=== PATIENT | female | born 1995 | race Caucasian/White ===

== ENCOUNTER 2023-04-09 13:01 | Outpatient (OUT) | payer OTHER, SELFPAY ==
--- NOTE | 2023-04-09 | US_ITS ---
The [address] [address] Patient Name: JODI BURNHAM MRN: [id number] date: 1995 Sex: F Assigned Patient Location: US Current Patient Location: LAB Accession/Order Number: [id number] Exam Date: 04/09/2023 13:06 Report Date: 04/09/2023 15:52 At the request of: JANKI SOTREY Procedure: US OB transvaginal EXAMINATION: US OB transvaginal HISTORY: MISSED MENSES COMPARISON: No relevant comparison available. FINDINGS: GESTATIONAL SAC: Present and normal appearing. YOLK SAC: Present and normal appearing. POLE: Present and normal appearing. CARDIAC: Present. UTERUS: Normal size and appearance. OVARIES: Right: Normal. Left: Normal. CERVIX: 4.3 cm in length and closed. CUL-DE-SAC: Normal. OTHER: None. AGE BY LMP: 9 weeks 2 days URIAH BY LMP: 11/10/2023 AGE BY US CRL: 9 weeks 4 days URIAH BY US CRL: 11/08/2023 US/US OB transvaginal IMPRESSION: 1. Single live intrauterine . Electronically authenticated by: MIREYA LOW Date: 04/09/2023 15:52
== END 2023-04-09 13:02 | disposition home or self-care (01) ==
LOC: US 13:02
PROVIDERS: Visit Provider Obstetrics & Gynecology
DX: Z34.91 Encounter for supervision of normal pregnancy, unspecified, first trimester (principal); N92.6 Irregular menstruation, unspecified
CPT/HCPCS: 76817

== ENCOUNTER 2023-04-14 15:09 | Outpatient (OUT) | payer OTHER, SELFPAY ==
[2023-04-14 16:31] LABS: Basophils Percent Auto 0.3 % (0.2-2.0); Eosinophils Absolute Auto 0.1 10^3/uL (0.0-0.7); Eosinophils Percent Auto 0.7 % (0.9-7.0); Hematocrit 38.1 % (36.0-48.0); Hemoglobin 12.6 g/dL (12.0-16.0); Immature Granulocytes Abs Auto 0.02 10^3/uL (0.00-0.03); Immature Granulocytes Pct Auto 0.2 % (0.0-0.5); Lymphocytes Absolute Auto 2.6 10^3/uL (1.2-3.8); Lymphocytes Percent Auto 26.4 % (20.5-60.0); Mean Corpuscular HGB Conc 33.1 g/dL (29.9-35.2); Mean Corpuscular Hemoglobin 30.1 pg (26.7-34.0); Mean Corpuscular Volume 90.9 fL (81.0-99.0); Mean Platelet Volume 11.5 fL (9.5-13.5); Monocytes Absolute Auto 0.6 10^3/uL (0.3-0.8); Monocytes Percent Auto 5.9 % (1.7-12.0); Neutrophils Absolute Auto 6.5 10^3/uL (1.4-6.5); Neutrophils Percent Auto 66.5 % (43.0-75.0); Red Blood Count 4.19 10^6/uL (4.20-5.40); Red Cell Distribution Width 12.9 % (11.0-15.0); White Blood Count 9.8 10^3/uL (4.0-11.0)
[2023-04-14 16:39] LABS: Platelet Count 203 10^3/uL (150-450)
[2023-04-14 17:06] LABS: Estimated Average Glucose 103 mg/dL; Glycohemoglobin A1C 5.2 % (4.5-6.2)
[2023-04-16 06:08] LABS: HBsAg Screen Negative (Negative); HCV Ab Non Reactive (Non Reactive); HIV Ab/p24 Ag Screen Non Reactive (Non Reactive); Rubella Antibodies, IgG 6.83 index (Immune >0.99)
[2023-04-16 12:10] LABS: Rapid Plasma Reagin, Quant Non Reactive titer (NonRea<1:1)
== END 2023-04-14 15:10 | disposition home or self-care (01) ==
LOC: LAB 15:09
PROVIDERS: Visit Provider Obstetrics & Gynecology
DX: Z34.80 Encounter for supervision of other normal pregnancy, unspecified trimester (principal); N92.6 Irregular menstruation, unspecified
CPT/HCPCS: 36415; 83036; 84443; 85025; 86592; 86762; 86803; 86850; 86900; 86901; 87086; 87340; 87389

== ENCOUNTER 2023-06-03 10:59 | Outpatient (OUT) | payer OTHER, SELFPAY ==
--- NOTE | 2023-06-03 11:02 | US_ITS ---
[address] [address] Patient Name: JODI BURNHAM MRN: [id number] date: 1995 Sex: F Assigned Patient Location: US Current Patient Location: Accession/Order Number: [id number] Exam Date: 06/03/2023 11:05 Report Date: 06/04/2023 01:28 At the request of: JANKI STOREY Procedure: US OB cervical length EXAMINATION: US OB cervical length HISTORY: History Of Maternal Cervical Laceration O09.299 COMPARISON: Ultrasound OB transvaginal 04/09/2023 TECHNIQUE: Transabdominal and transvaginal sonographic examination for cervical length. FINDINGS: CERVIX LENGTH: 4.9 cm; closed POSITION: Cephalic HEART RATE: 149 bpm OTHER: Dilated pelvic vessels. Age by EDC: 17 weeks 1 day URIAH by EDC: 11/10/2023 US/US OB cervical length IMPRESSION: 1. Single live intrauterine . 2. Closed cervix 4.9 cm in length. Electronically authenticated by: MIREYA LOW Date: 06/04/2023 01:28
== END 2023-06-03 11:00 | disposition home or self-care (01) ==
PROVIDERS: Visit Provider Obstetrics & Gynecology
DX: O09.292 Supervision of pregnancy with other poor reproductive or obstetric history, second trimester (principal); Z3A.17 17 weeks gestation of pregnancy
CPT/HCPCS: 76817

== ENCOUNTER 2023-06-08 21:36 | Outpatient (REF) | payer OTHER, SELFPAY ==
[2023-06-15 10:07] LABS: Age Gdln ACOG Testing Note (.); IGP, rfx Aptima HPV ASCU Note (.)
== END 2023-06-08 21:37 | disposition home or self-care (01) ==
LOC: LAB 21:36
PROVIDERS: Visit Provider Physician Assistant
DX: Z01.419 Encounter for gynecological examination (general) (routine) without abnormal findings (principal)
CPT/HCPCS: G0145

== ENCOUNTER 2023-06-23 16:21 | Outpatient (OUT) | payer OTHER, SELFPAY ==
--- NOTE | 2023-06-23 16:35 | US_ITS ---
[address] [address] Patient Name: JODI BURNHAM MRN: [id number] date: 1995 Sex: F Assigned Patient Location: US Current Patient Location: Accession/Order Number: [id number] Exam Date: 06/23/2023 17:00 Report Date: 06/23/2023 22:37 At the request of: JANKI STOREY Procedure: US OB anatomy EXAMINATION: US OB transvaginal, US OB anatomy HISTORY: SECOND TRIMESTER Z34.92 COMPARISON: No relevant comparison available. TECHNIQUE: Transabdominal sonographic examination was performed for obstetrical and evaluation. FINDINGS: Number: 1 Heart Rate: 153.4 bpm H.B. /min Amniotic Fluid Volume: Subjectively normal Placental Location: Posterior-fundal; lower margin is 6.4 cm from os. Cervix Length: 4.5 cm; closed ANATOMY: Normal Structures -cerebellum, choroid plexus, cisterna magna, lateral cerebral ventricles, orbits, midline falx, hard palate, four-chamber heart, RVOT, LVOT, stomach, kidneys, bladder, umbilical cord insertion into abdomen, three-vessel cord, cervical spine, thoracic spine, lumbar spine, sacral spine, right upper extremity, left upper extremity, right lower extremity, left lower extremity. SUBOPTIMALLY SEEN: None ABNORMALITIES: None BIOMETRY: BPD: 4.9 cm 20 weeks 5 days HC: 18.3 cm 20 weeks 5 days AC: 15.7 cm 20 weeks 6 days FL: 3.2 cm 20 weeks 1 days EFW:360.2 grams; 76% FL/AC: 20.7 FL/BPD: 66.5 HC/AC: 1.2 GESTATIONAL AGE: Age by EDC: 20 weeks 0 days URIAH by EDC: 11/10/2023 Age by current US: 20 weeks 4 days URIAH by current US: 11/06/2023 US/US OB anatomy IMPRESSION: 1. Single live intrauterine with growth detailed above. Electronically authenticated by: MIREYA LOW Date: 06/23/2023 22:37
--- NOTE | 2023-06-23 16:36 | US_ITS ---
[address] [address] Patient Name: JODI BURNHAM MRN: [id number] date: 1995 Sex: F Assigned Patient Location: US Current Patient Location: Accession/Order Number: [id number] Exam Date: 06/23/2023 17:00 Report Date: 06/23/2023 22:37 At the request of: JANKI SOTREY Procedure: US OB transvaginal EXAMINATION: US OB transvaginal, US OB anatomy HISTORY: SECOND TRIMESTER Z34.92 COMPARISON: No relevant comparison available. TECHNIQUE: Transabdominal sonographic examination was performed for obstetrical and evaluation. FINDINGS: Number: 1 Heart Rate: 153.4 bpm H.B. /min Amniotic Fluid Volume: Subjectively normal Placental Location: Posterior-fundal; lower margin is 6.4 cm from os. Cervix Length: 4.5 cm; closed ANATOMY: Normal Structures -cerebellum, choroid plexus, cisterna magna, lateral cerebral ventricles, orbits, midline falx, hard palate, four-chamber heart, RVOT, LVOT, stomach, kidneys, bladder, umbilical cord insertion into abdomen, three-vessel cord, cervical spine, thoracic spine, lumbar spine, sacral spine, right upper extremity, left upper extremity, right lower extremity, left lower extremity. SUBOPTIMALLY SEEN: None ABNORMALITIES: None BIOMETRY: BPD: 4.9 cm 20 weeks 5 days HC: 18.3 cm 20 weeks 5 days AC: 15.7 cm 20 weeks 6 days FL: 3.2 cm 20 weeks 1 days EFW:360.2 grams; 76% FL/AC: 20.7 FL/BPD: 66.5 HC/AC: 1.2 GESTATIONAL AGE: Age by EDC: 20 weeks 0 days URIAH by EDC: 11/10/2023 Age by current US: 20 weeks 4 days URIAH by current US: 11/06/2023 US/US OB transvaginal IMPRESSION: 1. Single live intrauterine with growth detailed above. Electronically authenticated by: MIREYA LOW Date: 06/23/2023 22:37
[2023-06-26 02:07] LABS: AFP Value 44.7 ng/mL (.); Gestat. Age Based On As provided (.); Insulin Dep Diabetes No (.); Maternal Age At EDD 27.6 yr (.); OSBR Risk 1 IN 10000 (.); Results Report (.)
== END 2023-06-23 16:22 | disposition home or self-care (01) ==
LOC: US 16:21
PROVIDERS: Visit Provider Obstetrics & Gynecology
DX: Z34.92 Encounter for supervision of normal pregnancy, unspecified, second trimester (principal); Z3A.20 20 weeks gestation of pregnancy
CPT/HCPCS: 36415; 76805; 76817; 82105

== ENCOUNTER 2023-07-25 09:10 | Outpatient (OUT) | payer OTHER, SELFPAY ==
--- OUTSIDE RECORDS SUMMARY | 2023-07-25 09:12 | XMS_ITS | CCD ---
Author Name Unknown Address [address] [facility] [address] [place] [address] Organization [facility] Care Team Providers Care Superintendent Job Name Role Phone Ramos Roxane Sims Unavailable [phone] ROXANE BEASLEY Unavailable Unavail able MARI HAM Unavailable Unavailable HENRI PULLIAM Unavailable Unavailabl emily BEASLEY, ROXANE SIMS Unavailable Unavail able HENRI PULLIAM Unavailable Unavailabl e RAMOS, ROXANE SIMS Unavailable Unavail able SOLIS FRENCH Unavailable Unavailable Physician, No PCP Unavailable Unavailable YANETH RADFORD Unavailable Unavailable Physician, No PCP Unavailable Unavailable Ernestine Mckeon Unavailable Unavailable DARY BLACK I Referring Unavailable DARY BLACK I Referring Unavailable Medications Current Medications Medication Drug Class(es) Dates Sig (Normalized) Sig (Original) Epinephrine 0.3 Mg/0.3 Ml Injection, Auto-Injector (3 sources) alpha-Adrenergic Agonist, beta-Adrenergic Agonist, Catecholamine EPINEPHrine (EPIP EN) 0.3 mg/0.3 mL AtIn Inject 0.3 mg into the shoulder, thigh, or buttocks once. Active EPINEPHrine (EPI PEN) 0.3 mg/0.3 mL AtIn Inject 0.3 mg into the shoulder, thigh, or buttocks once. Active etonogestrel 68 mg drug implant (3 sources) Progestin etonogestrel (NEXPLANON) 68 mg Impl subdermal implant by Subdermal route once. Active lactobacillus acidophilus (1 source) Lactobacillus acidophilus (PROBIOTIC ORAL) Indications: Fortify, 30 Billion Take by mouth. Active magic mouthwash susp equal parts viscous lidocaine 2%, diphenhydramine 12.5mg/5mL, maalox [id number]/5mL (1 source) Start: End: magic mouthwash susp equal parts viscous lidocaine 2%, diphenhydramine 12.5mg/5mL, maalox [id number]/5mL Swish and spit 5 mL every 6 (six) hours as needed. 180 mL 0 12/27/2017 12/30/2017 Active omeprazole 20 mg delayed release oral capsule (3 sources) Proton Pump Inhibitor Start: take 11 capsules by mouth once daily omeprazole (PRILOSEC) 20 MG capsule TK ONE C PO QD 11 12/01/2016 Active tiZANidine 4 mg oral capsule (2 sources) Central alpha-2 Adrenergic Agonist Start: End: take 1 capsule by mouth three times daily as needed for muscle spasms, then take 1 capsule by mouth as needed for muscle spasms tiZANidine (ZANAFLEX) 4 MG capsule Take 1 (one) capsule (4 mg total) by mouth 3 (three) times a day as needed for muscle spasms. 15 capsule 0 05/08/2017 05/13/2017 Active Start: 05-08-2017 End: 05-08-2017 take 1 tablet by mouth once tiZANidine (ZANAFLEX) tabl et 2 mg 2 mg, Oral, Once, 05/08/17 at 1135, For 1 dose Given 05/08/2017 12:47 EDT 2 mg Completed/Discontinued Medications Medication Drug Class(es) Dates Sig (Normalized) Sig (Original) Diphenhydramine 50 Mg/Ml Injection Solution (1 source) Histamine-1 Receptor Antagonist Start: 05-07-2017 End: 05-07-2017 take 25 mg intravenous route once, then take 25 mg intravenous route diphenhydrAMINE (BENADRYL) injection 25 mg 25 mg, Intravenous, Once, Radha 05/07/17 at 1720, For 1 dose, For IV administration, give at a rate less than or equal to 25 mg/min Given 05/07/2017 17:29 EDT 25 mg 1 ml ketorolac tromethamine 30 mg/ml injection (2 sources) Nonsteroidal Anti-inflammatory Drug, Cyclooxygenase Inhibitor Start: 05-08-2017 End: 05-08-2017 ketorolac (TORADOL) injection 30 mg 30 mg, Intravenous, Once, 05/08/17 at 1150, For 1 dose Given 05/08/2017 11:50 EDT 30 mg Start: 05-07-2017 End: 05-07-2017 ketorolac (TORADOL) injectio n 15 mg 15 mg, Intravenous, Once, Radha 05/07/17 at 1720, For 1 dose Given 05/07/2017 17:29 EDT 15 mg 2 ml metoclopramide 5 mg/ml injection (1 source) Dopamine-2 Receptor Antagonist Start: 05-07-2017 End: 05-07-2017 metoclopramide (REGLAN) injection 10 mg 10 mg, Intravenous, Once, Radha 05/07/17 at 1720, For 1 dose Given 05/07/2017 17:29 EDT 10 mg 1000 ml sodium chloride 9 mg/ml injection (1 source) Start: 05-07-2017 End: 05-07-2017 sodium chloride 0.9% (NS) bolus 1,000 mL 1,000 mL, Intravenous, at 1,000 mL/hr, Once, Radha 05/07/17 at 1720, For 1 dose New Bag 05/07/2017 17:28 EDT 1,000 mL 1000 mL/hr Problems Active Problems Problem Classification Problem Date Documented Date Episodic/Chronic Anxiety disorders (6 sources) Panic disorder; Translations: [Anxiety] Onset: 08-17-2015 08-17-2015 Chronic Attention-deficit, conduct, and disruptive behavior disorders (1 source) Adult attention deficit hyperactivity disorder ; Translations: [ADD (attention deficit disorder)] Onset: 08-17-2015 08-17-2015 Chronic Disorders usually diagnosed in infancy childhood or adolescence (2 sources) Other specified behavioral and emotional disorders with onset usually occurring in childhood and adolescence; Translations: [ADD (attention deficit disorder)] Onset: 08-17-2015 08-17-2015 Chronic Headache; including migraine (6 sources) Cluster headache; Translations: [Migraine] Onset: 08-17-2015 08-17-2015 Chronic Nonmalignant breast conditions (3 sources) Unspecified lump in the right breast, unspecified quadrant; Translations: [Mass of breast, right] Onset: 08-07-2016 08-07-2016 Other upper respiratory infections (2 sources) Acute pharyngitis, unspecified; Translations: [Acute pharyngitis, unspecified] Onset: 12-27-2017 Episodic Substance-related disorders (3 sources) Cannabis abuse; Translations: [Marijuana abuse] Onset: 08-17-2015 08-17-2015 Chronic Unclassified (1 source) Unknown / UNK(Unknown) Onset: 11-20-2017 Viral infection (2 sources) Viral infection, unspecified; Translations: [Viral infection, unspecified] Onset: 12-27-2017 Episodic Past or Other Problems Problem Classification Problem Date Documented Da te Episodic/Chronic Deficiency and other anemia (3 sources) Iron deficiency anemia; Translations: [Iron deficiency anemia] Onset: 08-17-2015 08-17-2015 Episodic Gastritis and duodenitis (3 sources) Gastritis; Translations: [Gastritis] Onset: 08-17-2015 08-17-2015 Episodic Headache; including migraine (3 sources) Headache; Translations: [Headache] Onset: 05-07-2017 Episodic Other connective tissue disease (2 sources) Other muscle spasm; Translations: [Other muscle spasm] Onset: 05-08-2017 Episodic Other connective tissue disease (1 source) Muscle spasm of cervical muscle of neck Episodic Unclassified (1 source) VOMITING LOW IRON HEAVY PERIOD Onset: 11-21-2017 Results Test Name Value Interpretation Reference Range Facility XR CHEST (2 VW)on 07-09-2021 XR CHEST (2 VW) EXAMINATION: TWO XRAY VIEWS OF THE CHEST 07/09/2021 8:57 am COMPARISON: None. HISTORY: ORDERING SYSTEM PROVIDED HISTORY: Nonspecific reaction to tuberculin test TECHNOLOGIST PROVIDED HISTORY: Reason for Exam: follow up, postive ppd test FINDINGS: Upright frontal and lateral view chest radiographs were obtained. The heart size, mediastinal contour and pleural spaces are within normal limits. The lungs are clear. There is no focal consolidation or pneumothorax. The pulmonary vascular pattern is within normal limits. No significant thoracic osseous abnormality. IMPRESSION: Clear lungs. No acute cardiopulmonary abnormality. Interpreted by: Hamzah Kaba MD Signed by: Hamzah Kaba MD 07/09/21 Final result Normal [facility] POC Rapid Strep Aon 12-28-19 Interpretation and review of laboratory results Normal Invalid Interpretation Code [facility] Streptococcus pyogenes antigen presence Negative Invalid Interpretation Code Negative [facility] Basic Metabolic Panelon 05 Anion gap 8.0 mmol/L Normal 6.0-18.0 [facility] Comment on above: Result Comment: JOHNSON POLANCO NOTE:The calculated Anion Gap(AGAP) does not include Potassium. Performed By: #### 6 9405-9, 92497-5y3, 3040-3, 20239-7, 24247-4 ####[facility], [address] [place], [place]. Calcium 9.3 mg/dL Normal 8.9-10.3 [facility] Comment on above: Performed By: #### 6 9405-9, 39257-7y2, 3040-3, 10999-2, 91652- 3 ####[facility], [address] [place], [place]. Chloride 106 mmol/L Normal 98-107 [facility] Comment on above: Performed By: #### 6 9405-9, 50030-2k8, 3040-3, 44336-9, 00960- 3 ####[facility], [address] [place], [place]. CO2 25 mmol/L Normal 22-32 [facility] Comment on above: Performed By: #### 6 9405-9, 51066-3f8, 3040-3, 20148-1, 02293- 3 ####[facility], [address] [place], [place]. Creatinine 0.65 mg/dL Low 0.66-1.30 [facility] Comment on above: Performed By: #### 6 9405-9, 20095-0x5, 3040-3, 49262-3, 61422- 3 ####[facility], [address] [place], [place]. Glucose mass conc 88 mg/dL Normal 70-110 [facility] Comment on above: Performed By: #### 6 9405-9, 65247-1s6, 3040-3, 58551-7, 50342- 3 ####[facility], [address] [place], [place]. Potassium molar conc 3.5 mmol/L Low 3.6-5.1 [facility] Comment on above: Performed By: #### 6 9405-9, 94909-5c1, 3040-3, 74919-1, 18411- 3 ####[facility], [address] [place], [place]. Sodium 139 mmol/L Normal 136-145 [facility] Comment on above: Performed By: #### 6 9405-9, 12837-1q7, 3040-3, 61417-0, 60560- 3 ####[facility], [address] [place], [place]. Urea nitrogen mass conc (BldV) 10 mg/dL Normal 8-20 [facility] Comment on above: Performed By: #### 6 9405-9, 45045-1j6, 3040-3, 79025-7, 35835- 3 ####[facility], [address] [place], [place]. CBCon 11-21-2017 Erythrocyte distribution width Entitic volume (RBC) 20.1 % High 11.0-14.8 [facility] Comment on above: Performed By: #### 2 4317-0 ####[facility], [address] [place], [place]. Erythrocytes (RBC) 4.57 million/mcL Normal 3.80-5.10 [facility] Comment on above: Performed By: #### 2 4317-0 ####[facility], [address] [place], [place]. Hematocrit (HCT) 34.8 % Low 35.0-45.0 [facility] Comment on above: Performed By: #### 2 4317-0 ####[facility], [address] [place], [place]. Hemoglobin mass conc (Bld) 11.3 g/dL Low 12.0-16.0 [facility] Comment on above: Performed By: #### 2 4317-0 ####[facility], [address] [place], [place]. MCH 24.8 Picograms Low 27.0-34.0 [facility] Comment on above: Performed By: #### 2 4317-0 ####[facility], [address] [place], [place]. MCHC mass conc (RBC) 32.6 g/dL Normal 32.0-36.0 [facility] Comment on above: Performed By: #### 2 4317-0 ####[facility], [address] [place], [place]. MCV 76.1 fL Low 80.0-97.0 [facility] Comment on above: Performed By: #### 2 4317-0 ####[facility], [address] Platelet mean volume Entitic volume (Bld) 8.9 FL Normal 6.2-12.1 [facility] Comment on above: Performed By: #### 2 4317-0 ####[facility], [address] [facility] Platelets 251 thou/mcL Normal 142-424 [facility] Comment on above: Performed By: #### 2 4317-0 ####[facility], [address] [place] [place]. WBC (Leukocytes) 6.4 thou/mcL Normal 4.6-10.2 [facility] Comment on above: Performed By: #### 2 4317-0 ####[facility], [address] CT Abd and Pelvis w Contrast on 11-21-2017 CT Abd and Pelvis w Contrast EXAMINATION TYPE: CT Abd and Pelvis w Contrast DATE OF EXAM: 11/21/2017 3:08 AMHISTORY: Pain Without Trauma. Vomiting, abdominal pain, low iron, heavy menstrual period. Smoker.COMPARISON: NONEFINDINGS: CT Abdomen:Lung bases are clear. No pericardial or pleural effusion.Normal solid organs. Normal gallbladder by CT assessment. No gross biliary dilatation.No upper abdominal free fluid. Unopacified, but nonobstructive bowel. Normal aorta. No enlarged lymph nodes.CT Pelvis:Normal urinary bladder. Unremarkable uterus and right adnexal region by CT assessment. Approximately 3.1 x 3.1 cm left ovarian cyst. No free fluid.No enlarged lymph nodes. No overt femoral or inguinal hernia. Normal caliber colon. Normal terminal ileum. Nonvisualized appendix.Grossly intact osseous structures.IMPRESSION: 1. No acute findings.2. Approximately 3 cm left ovarian cyst, probably a dominant follicle.Findings provided to the referring service in the emergency department following dictation on 11/21/2017 3:41 AM.[facility] thanks you for the opportunity to care for your patient. Workstation ID: [id number] FINAL REPORT Dictated By: Pérez Queen MD 11/21/2017 03:38Assigned Physician: Pérez Queen MDReviewed and Electronically Signed By: Pérez Queen MD 11/21/2017 03:42Transcribed by: HELEN 11/21/2017 03:38Technologist: YRIS Normal [facility] Culture Urine + Susceptibili tyon 11-21-2017 Urine culture, bacteria [facility] MicrobiologyPROCEDURE: Culture Urine + SusceptibilitySOURCE: Urine BODY SITE:COLLECTED DATE/TIME: 11/21/2017 01:41 EDT RECEIVED DATE/TIME: 11/21/2017 01:41 EDTSTART DATE/TIME: 11/21/2017 01:41 EDT FREE TEXT SOURCE: URINEINTERFACED REPORTSFinal Report []Verified Date/Time/Personnel: 11/22/2017 12:17 EDT CONTRIBUTOR_SYSTEM, CO_PNORGANISMS USUALLY ASSOCIATED WITH VAGINAL,URETHRAL,AND/OR SKIN CONTAMINATION PRESENT. Normal [facility] Comment on above: Performed By: #### 5 8077-9, 09979-2 ####[address]#### [address]-4 ####[place] [address] [place], [place] Depart Summaryon 11-21-2017 Depart Summary EMERGENCY DEPARTMENT DISCHARGE SUMMARYPATIENT NAME:JODI BOSTON MRN: [id number]: 22 Years SEX: Female PHONE:[phone]: 11/20/2017 10:57 PM : 1995 ATTENDING PHYSICIAN:Ernestine Mckeon MD PCP: Physician, [place] PCP CHIEF COMPLAINT: abdominal pain Allergies Compazine (Anger)Problems Active No Chronic Problems DISCHARGE DIAGNOSIS: DISCHARGE INSTRUCTIONS: Work Release (CO-S) (CUSTOM); Abdominal Pain, Adult ED PHYSICIAN DOCUMENTATION: History of Present [id number] female with no significant medical history presents for evaluation of onset of abdominal pain for approximately?3 days.? Patient presents with associated nausea, vomiting, and mild diarrhea. Episodes of vomiting occasionally accompanied by green bile. Her appetite is unaffected, but she has been unable to keep anything down. ? She notes that she had a bad URI approximately 2-3 weeks ago. She was treated with antibiotics and steroids.? Reports that she usually has low iron and protein, particularly when on her menstrual period. Currently on her period, states that it's chunky and uncomfortable. LMP approximately 1.5 months ago. IUD in left arm.? No regular long-term medications.? No associated fevers, cough, congestion, or sore throat.No associated leg swelling, shortness of breath, or chest pain.? I have reviewed and agree with the nursing notes.? REVIEW OF SYSTEMS:Constitutional: [ No fevers ; no chills ]Eyes: [ No visual changes ]ENMT: [ No sore throat ; no runny nose ; no stuffy nose ]Cardiovascular: [ No chest pain ; no palpitations ]Respiratory: [ No cough ; no difficulty breathing ]Gastrointestinal: [ +abdominal pain ; +nausea ; +vomiting, occasional green bile;+mild diarrhea]Genitourinary: [ No pain with urination; no burning with urination;+ chunky and uncomfortable menstrual period]Musculoskeletal: [ No pain in extremities ]Integumentary: [ No rashes ]Neurological: [ No numbness ; no tingling ; no weakness ]Hematologic: [ No bruising]?All other systems reviewed are negative? PHYSICAL EXAM:??11/21/17 01:34:00Pulse: ?71BP: ?108/70Respiration: ??18Pulse Ox: ? ? ?99Ox. Delivery: ?Room air?Temperature:??98 .3 ?(11/20 22:59)?Pulse:??71 ?(11/21 00:34)?Respiration:??18 ?(11/21 00:34)?BP:??108/70 ?(11/21 00:34)?Pulse Ox:??99 ?(11/21 00:)?Oxygen Delivery:??Room air ?(11/21 00:)?Pain Score:??4 ?(11/20 22:59)???PULSE OX INTERPRETATION: The Pulse ox is [ 99], which is [normal]? Constitutional: [Alert, Well appearing, Well nourished, in no acute distress]Head: [Normocephalic, Atraumatic]Eyes: [PERRL, no scleral icterus]Nose: [Normal in appearance, no rhinorrhea]Mouth: [Moist mucous membranes]Neck: [Supple, trachea midline]Cardiovascular: [Regular rate and rhythm, no murmurs, no rubs, no gallops]Respiratory: [Clear to auscultation bilaterally without wheezes, rhonchi, rales. Equal air exchange without accessory muscle use]Gastrointestinal: [Mild LUQ, no splenomegaly, no rebound, no guarding. Non-distended. Soft without rigidity]Genitourinary: [Deferred]Skin: [Normal for age, no rash, no?lesions]Musculoskeletal: [No edema, normal peripheral perfusion and pulses]Neurologic: [Awake, alert, answers questions appropriately without slurred speech, no focal deficits]? DIFFERENTIAL DIAGNOSIS: [ Appendicitis, AAA, Cholelithiasis, Cholecystitis, Bowel Obstruction, Gastroenteritis, Gastritis, Peptic Ulcer Disease, Ruptured Bowel, Colitis, Urinary Tract Infection, Pelvic Inflammatory Disease, Ovarian/Testicular Torsion, Pyelonephritis, Ureteral Stone, Pancreatitis, Traumatic Injury, Mesenteric Ischemia?]? MEDICAL DECISION MAKING: [Suspect gastritis secondary to the prednisone she was on, possible gastroenteritis.?We'll check CT abdomen and basic labs. She will monitor this. She has left upper quadrant tenderness, could be possible kidney stone?or splenomegaly although likelihood low.?IV fluids ordered.?Patient will be closely monitored and reevaluated afterwards. ]???ER Progress Note?PROGRESS NOTES: [ 0440: Patient tolerating by mouth at this time. Labs unremarkable as well as CT. There is a left?ovarian cyst?patient has been notified of. Currently on her cycle?, likely?related?to this. Patient?now reports is a family history of Crohn's disease and she was recommended getting and endoscopy and colonoscopy done to evaluate for this. This could be the first flare. For now?as she is tolerated by mouth she can go home, f/u outpatient/? Medications/Treatment plan discussed.Results DiscussedPatient agreeable to the plan.Warning precautions and discharge instructions discussed.??]? DISCHARGE PLAN:Condition: [Stable].Disposition: [Medically cleared], Discharged Date/Time: [ 0] to HomePrescriptions: famotidine?20 mg, By Mouth Twice a day, 30 Day(s),, PRN 60 Tabondansetron?4 mg, Under the Tongue 3 Times a day, 7 Day(s),, PRN ?Nausea and Vomitting 21 Tab [ ]Limitations: [Limited activity, Limited work, No school, No sports, No heavy lifting.]Patient Education:? Abdominal Pain, Adult??Follow up with:? Provider: ?Follow up with primary care provider?? ?Specialty:?Address:?Date:??5 to 7 days??? Comment: ?Call for an AppointmentReturn to the emergency room for any worsening of or development of chest pain, difficulty breathing, nausea, vomiting, numbness, tingling, weakness, abdominal pain, or any generalized worsening of your condition.?Counseled: [Patient].??FINAL DIAGNOSIS: [Abdominal Pain?]?SCRIBE ATTESTATION: I, Moriah Almanza, am serving as a scribe to document services personally performed by Dr. Mckeon based on the patient's responses to questions from the provider and the provider's statement to me.This chart accurately reflects the work and decisions made by me.?? DISPOSITION:Time of Departure From ER 11/21/2017 05:03 Discharge/Transfer From ER Home 01 MEDICATION LISTS: CURRENT MEDICATION LISTfamotidine (Pepcid 20 mg oral tablet) 1 Tab(s) By Mouth Twice a day for 30 Days. Refills: 0.ondansetron (Zofran ODT 4 mg oral tablet, disintegrating) 1 Tab(s) Under the Tongue 3 Times a day as needed Nausea and Vomitting for 7 Days. Refills: 0. MEDICATIONS GIVEN DURING MEDICAL VISITSodium Chloride 0.9% 1,000 mL last dose given on 11/21/2017 at 01:47 Route: Intravenous Bolus, Infuse over 60 mins. ondansetron 4 mg last dose given on 11/21/2017 at 02:16 Route: IV Push Administer over 2 minutes (for IV Push) LAB RESULTS:LABORATORY TESTS: Pending Lab Result(s): Date Order Results 11/21/2017 02:18 Culture Urine + Susceptibility InProcess Abnormal Lab Result(s): Date Order Results 11/20/2017 23:06 Specific [place] Urine POCT N 1.030 11/20/2017 23:06 pH Urine POCT N 5 11/20/2017 23:06 Urobilinogen Urine POCT N 0 mg/dL 11/21/2017 01:41 Appearance Urine A TURBID 11/21/2017 01:41 Specific [place] Urine H 1.032 11/21/2017 01:41 Blood Urine A 10/UL 11/21/2017 01:41 Ketones Urine A 80MG/DL 11/21/2017 01:41 Protein Urine A 100MG/DL 11/21/2017 01:41 Leukocyte Esterase Urine A 25/UL 11/21/2017 01:41 Hemoglobin L 11.3 gm/dL 11/21/2017 01:41 Hematocrit L 34.8 % 11/21/2017 01:41 MCV L 76.1 FL 11/21/2017 01:41 MCH L 24.8 Picograms 11/21/2017 01:41 RDW H 20.1 % 11/21/2017 02:01 Lipase Level L 21 Units/L 11/21/2017 02:01 Potassium Level L 3.5 mMol/L 11/21/2017 02:01 Creatinine L 0.65 mg/dL 11/21/2017 01:41 WBC Urine H 6 /hpf 11/21/2017 01:41 RBC Urine H 6 /hpf 11/21/2017 01:41 Bacteria Urine A FEW 11/21/2017 01:41 Squamous Epithelial Cells Urine A MANY 11/21/2017 01:41 Mucous Urine A MANY 11/21/2017 01:41 Amorphous Sediment Urine A FEW RADIOLOGY:RADIOLOGY RESULT(S) (Please contact Medical Records office for further information): 11/21/2017 03:03 CT Abd and Pelvis w Contrast EXAMINATION TYPE: CT Abd and Pelvis w Contrast DATE OF EXAM: 11/21/2017 3:08 AMHISTORY: Pain Without Trauma. Vomiting, abdominal pain, low iron, heavy menstrual period. Smoker.COMPARISON: NONEFINDINGS: CT Abdomen:Lung bases are clear. No pericardial or pleural effusion.Normal solid organs. Normal gallbladder by CT assessment. No gross biliary dilatation.No upper abdominal free fluid. Unopacified, but nonobstructive bowel. Normal aorta. No enlarged lymph nodes.CT Pelvis:Normal urinary bladder. Unremarkable uterus and right adnexal region by CT assessment. Approximately 3.1 x 3.1 cm left ovarian cyst. No free fluid.No enlarged lymph nodes. No overt femoral or inguinal hernia. Normal caliber colon. Normal terminal ileum. Nonvisualized appendix.Grossly intact osseous structures.IMPRESSION: 1. No acute findings.2. Approximately 3 cm left ovarian cyst, probably a dominant follicle.Findings provided to the referring service in the emergency department following dictation on 11/21/2017 3:41 AM.[facility] thanks you for the opportunity to care for your patient. Workstation ID: [id number] FOLLOW UP:FOLLOW-UP APPOINTMENTS: Provider: Specialty: Address: Date: Follow up with primary care provider 5 to 7 days Comment: Call for an Appointment Return to the emergency room for any worsening of or development of chest pain, difficulty breathing, nausea, vomiting, numbness, tingling, weakness, abdominal pain, or any generalized worsening of your condition. Normal [facility] ED Pat Eduon 11-21-2017 ED Pat Edu [place] [id number] [facility] Discharge Instructions JODI BOSTON , Please provide this information to your Primary Care/Specialist Name : TEJ JODI Smith Current Date : 11/21/2017 03:50:01DOB : 1995 12:00 PM Primary Care Physician: Physician, [place] PCP Diagnosis : Follow-Up Instructions:JODI BOSTON has been given these follow-up instructions: FOLLOW-UP APPOINTMENTS: Provider: Specialty: Address: Date: Follow up with primary care provider 5 to 7 days Comment: Call for an Appointment Return to the emergency room for any worsening of or development of chest pain, difficulty breathing, nausea, vomiting, numbness, tingling, weakness, abdominal pain, or any generalized worsening of your condition. Laboratory Orders: Name: Status: Urinalysis Manual POCT (CO) Completed Urine Test POCT (CO) Completed CBC Completed Basic Metabolic Panel Completed Hepatic Function Panel Completed Lipase Completed Urinalysis with Microscopic Automatic with Reflex Completed GFRaa Completed GFRbb Completed Urinalysis Microscopic Completed Radiology Orders: Name: Status: CT Abd and Pelvis w Contrast Completed Diagnostic Tests: None Ordered Procedure(s) and Patient Education(s) : Abdominal Pain, Adult EMERGENCY SERVICES MEDICATION LISTLista de Medicaciones de los Servicios de Emergencia Name TJE JODI Luis MRN (COL)-[phone] PLEASE READ THE FOLLOWING REGARDING YOUR MEDICATIONS Based on the information available during your visit we have given you the medication instructions below. Continue taking medications you took prior to your visit unless you have been told to change. Please share this information with your own doctor. Carry a list of your medications with you in case of an emergency. Update it when medications are stopped, doses are changed, or new medications (including uqqc-hqc-gopsqnw products) are added. If you have any questions, check with your doctor. Por la informaci??n disponible kiera rodrigues visita, las instrucciones de medicaci??n aparecen debajo. Favor de continuar tomando las medicaciones Ud. jeffery?? antes de rodrigues visita por lo menos que hay cambios. Favor de compartir esta informaci??n con rodrigues medico. Lleva orquidea lista de medicaciones consigo por jason de emergenc??a. Actualiza la lista cuando Ud. zaire de crystal las medicaciones, si cambian las dosis, o si hay nuevas medicaciones a??adidas (incluyendo medicaciones vendidas sin prescripci??n). Favor de preguntar a rodrigues medico por cualquier shaun. THESE ARE THE MEDICATIONS YOU SHOULD BE TAKINGfamotidine (Pepcid 20 mg oral tablet) 1 Tab(s) By Mouth Twice a day for 30 Days. Refills: 0.ondansetron (Zofran ODT 4 mg oral tablet, disintegrating) 1 Tab(s) Under the Tongue 3 Times a day as needed Nausea and Vomitting for 7 Days. Refills: 0.MEDICATIONS GIVEN DURING MEDICAL VISITSodium Chloride 0.9% 1,000 mL last dose given on 11/21/2017 at 01:47 Route: Intravenous Bolus, Infuse over 60 mins. ondansetron 4 mg last dose given on 11/21/2017 at 02:16 Route: IV Push Administer over 2 minutes (for IV Push) NON-MEDICATION PRESCRIPTION SCHEDULING PHONE NUMBER: MEDICATION CHANGE DETAILS (Not your Final Home Medication List) During the course of your visit, your home medication list was updated with the most current information. The details of those changes are shown below: NEW MEDICATIONSPrinted Prescriptionsfamotidine (Pepcid 20 mg oral tablet) 1 Tab(s) By Mouth Twice a day for 30 Days. Refills: 0.Comment onda nsetron (Zofran ODT 4 mg oral tablet, disintegrating) 1 Tab(s) Under the Tongue 3 Times a day as needed Nausea and Vomitting for 7 Days. Refills: 0.Comment UPDA MARK MEDICATIONSNoneUNCHANGED MEDICATIONSNoneSTOP TAKING THESE MEDICATIONSNoneDO NOT TAKE UNTIL YOU TALK TO YOUR DOCTORNone [place] [id number] Emergency Department Discharge Instructions Name: JODI BOSTON Current Date: 11/21/2017 03:50:01 : 1995 12:00 PM Primary Physician: Physician, No PCP We would like to thank you for choosing [facility] for your emergency medical needs. We examined and treated you today on an emergency basis only. This was not a substitute for, or an effort to provide, complete medical care. In most cases, you must let your doctor (or the doctor we referred you to) check you again. Tell your doctor about any new or lasting problems. We cannot recognize and treat all injuries or illnesses in one emergency department visit. After you leave, you should follow the directions attached. Instructions for obtaining X-rays:When following up with your doctor, you may need to take copies of your x-rays that were done in the Emergency Department. If you didn't receive these upon your discharge from the emergency department, please call . When the final report becomes available and it is reviewed, the emergency department will attempt to contact you if there are any changes in your instructions. It is important that you leave accurate information with us on how to contact you. IF you cannot be contacted, YOU must contact the follow-up doctor that you were assigned to make sure that the final official x-ray report does not require a change in your treatment. Instructions for obtaining medical records:If you need a copy of your medical records for follow-up, please contact the Health Information Management Department at . Their office hours are 8 AM- 4:30 PM, Thursday through Thursday. Please note: Results are not immediately available. Please allow a minimum of 36 hours for documentation and results.If you were prescribed an antibiotic:Antibiotics are life-saving drugs and they need to be used properly. Your team might change your antibiotic because test results show that a different antibiotic would be better to treat your infection. Like all medications, antibiotics have side effects. Some can be serious. This includes the risk of getting an antibiotic-resistant infection later, which may be difficult to treat. Remember to take your antibiotics as prescribed. If you have any questions please talk to your healthcare team.Seatbelts:There is no doubt that seatbelts save lives. Every day, people without seatbelts have more serious injuries. Have everyone buckle up, using age appropriate seatbelts or car seats, to reduce their risk of injury.Smoking:If you do smoke, we encourage you to stop. Smoking affects all aspects of your health and the health of those around you. Call the [employer] at 2-704-GBIR-USA or the [employer] at 4-563-MDV-4217 for more information.High blood pressure: Your screening blood pressure today was 108 mm Hg / . Hypertension (high blood pressure) is blood pressure over 120/80. People with hypertension should contact their primary care provider within 30 days to follow up. Check your patient portal for additional blood pressure information.Immunizations:I mmunization is a way to protect against deadly infections. Discuss this with your child's library page, or Public Health Department. Your family practice doctor can determine if you need pneumonia or flu vaccine. The [facility] Department can be reached at .Domestic Violence:If you are a victim of domestic violence (physical, verbal, or emotional), you are not alone. Discuss this with your physician or a friend and call Choices Hotline ( for assistance and support.You are the most important factor in your recovery. Follow the provided instructions carefully. Take your medications as prescribed. Most importantly, see a doctor again as discussed. If you have problems that we have not discussed, call or visit your doctor right away. If you do not have a primary care physician, we have provided one for you to follow up with. When you call for an appointment, please inform them that you were seen in the emergency department and the date of your visit. If you are unable to reach your doctor and are still experiencing problems, return to the emergency department. For assistance finding a primary care physician, call the Physician Referral Line at .Suicide Hotline:Your mental and emotional well-being is important. If you are in a mental health crisis or are having thoughts of suicide, please call the nationwide suicide hotline, anytime day or night, at 1-077-209-WDBU. Pharmacy Information:Below is a list of 24 hour pharmacies that we are aware of. We suggest that you call the specific pharmacy for their hours before traveling to a location. Hours may vary on holidays. [facility] [address] [address] [phone] [address] [phone] [address] [phone] [address] [phone] [address] [phone] [address] [phone] [place] [address] [phone] Take all medications as directed. If you need prescription assistance, contact the following agencies:?? Partnership for Prescription Assistance at or www.pparx.org?? [facility] Best Rx at or www.TopChalksbestrx.org?? www.Cold GenesysRDrop Messages.PinkUP is a site with many valuable coupons Patient Education Materials JODI BOSTON has been given the following patient education materials: Emergency MedicineAbdominal Pain, AdultMany things can cause abdominal pain. Usually, abdominal pain is not caused by a disease and will improve without treatment. It can often be observed and treated at home. Your health care provider will do a physical exam and possibly order blood tests and X-rays to help determine the seriousness of your pain. However, in many cases, more time must pass before a clear cause of the pain can be found. Before that point, your health care provider may not know if you need more testing or further treatment. HOME CARE INSTRUCTIONSMonitor your abdominal pain for any changes. The following actions may help to alleviate any discomfort you are experiencing:???Only take osvg-fwr-tipzdqz or prescription medicines as directed by your health care provider. ???Do not take laxatives unless directed to do so by your health care provider.???Try a clear liquid diet (broth, tea, or water) as directed by your health care provider. Slowly move to a bland diet as tolerated.SEEK MEDICAL CARE IF:???You have unexplained abdominal pain.???You have abdominal pain associated with nausea or diarrhea. ???You have pain when you urinate or have a bowel movement.???You experience abdominal pain that wakes you in the night.???You have abdominal pain that is worsened or improved by eating food.???You have abdominal pain that is worsened with eating fatty foods.???You have a fever. SEEK IMMEDIATE MEDICAL CARE IF:???Your pain does not go away within 2 hours.???You keep throwing up (vomiting).???Your pain is felt only in portions of the abdomen, such as the right side or the left lower portion of the abdomen.???You pass bloody or black tarry stools.MAKE SURE YOU:???Understand these instructions. ?Will watch your condition. ?Will get help right away if you are not doing well or get worse. ?This information is not intended to replace advice given to you by your health care provider. Make sure you discuss any questions you have with your health care provider.Document Released: 04/15/2006 Document Revised: 07/27/2015 Document Reviewed: 03/15/2014[employer] Interactive Patient Education ?2016 [employer]><><><><><><><><><><>< ><><><><><><><><><><><>< ><> Patient Visit Summary JODI Jackson has been given the following list of patient education materials, prescriptions and follow-up instructions: TEJ Whitten MORGAN A, have received the above patient education materials/instructions and have verbalized understanding: Date Time Patient Signature Date Time Provider Signature Normal [facility] ED Physician Noteson 018 ED Physician Notes Chief Complaint kristan zhao painED Assigned Provider/Time Time Seen: Ernestine Mckeon MD / 11/21/2017 00:48History of Present Illness 22-year-old female with no significant medical history presents for evaluation of onset of abdominal pain for approximately 3 days. Patient presents with associated nausea, vomiting, and mild diarrhea. Episodes of vomiting occasionally accompanied by green bile. Her appetite is unaffected, but she has been unable to keep anything down. She notes that she had a bad URI approximately 2-3 weeks ago. She was treated with antibiotics and steroids. Reports that she usually has low iron and protein, particularly when on her menstrual period. Currently on her period, states that it's chunky and uncomfortable. LMP approximately 1.5 months ago. IUD in left arm. No regular long-term medications. No associated fevers, cough, congestion, or sore throat. No associated leg swelling, shortness of breath, or chest pain. I have reviewed and agree with the nursing notes. REVIEW OF SYSTEMS: Constitutional: [No fevers;no chills] Eyes: [No visual changes] ENMT: [No sore throat;no runny nose;no stuffy nose] Cardiovascular: [No chest pain;no palpitations] Respiratory: [No cough;no difficulty breathing] Gastrointestinal: [+abdominal pain;+nausea;+vomiting, occasional green bile;+mild diarrhea] Genitourinary: [No pain with urination;no burning with urination;+ chunky and uncomfortable menstrual period] Musculoskeletal: [No pain in extremities] Integumentary: [No rashes] Neurological: [No numbness;no tingling;no weakness] Hematologic: [No bruising] All other systems reviewed are negative PHYSICAL EXAM: 11/21/17 01:34:00 Pulse: 71 BP: 108/70 Respiration: 18 Pulse Ox: 99 Ox. Delivery: Room air Temperature: 98.3 (11/20 22:59) Pulse: 71 (11/21 01:34) Respiration: 18 (11/21 01:34) BP: 108/70 (11/21 01:34) Pulse Ox: 99 (11/21 01:34) Oxygen Delivery: Room air (11/21 00:34) Pain Score: 4 (11/20 22:59) PULSE OX INTERPRETATION: The Pulse ox is [ 99], which is [normal] Constitutional: [Alert, Well appearing, Well nourished, in no acute distress] Head: [Normocephalic, Atraumatic] Eyes: [PERRL, no scleral icterus] Nose: [Normal in appearance, no rhinorrhea] Mouth: [Moist mucous membranes] Neck: [Supple, trachea midline] Cardiovascular: [Regular rate and rhythm, no murmurs, no rubs, no gallops] Respiratory: [Clear to auscultation bilaterally without wheezes, rhonchi, rales. Equal air exchange without accessory muscle use] Gastrointestinal: [Mild LUQ, no splenomegaly, no rebound, no guarding. Non-distended. Soft without rigidity] Genitourinary: [Deferred] Skin: [Normal for age, no rash, no lesions] Musculoskeletal: [No edema, normal peripheral perfusion and pulses] Neurologic: [Awake, alert, answers questions appropriately without slurred speech, no focal deficits] DIFFERENTIAL DIAGNOSIS: [ Appendicitis, AAA, Cholelithiasis, Cholecystitis, Bowel Obstruction, Gastroenteritis, Gastritis, Peptic Ulcer Disease, Ruptured Bowel, Colitis, Urinary Tract Infection, Pelvic Inflammatory Disease, Ovarian/Testicular Torsion, Pyelonephritis, Ureteral Stone, Pancreatitis, Traumatic Injury, Mesenteric Ischemia ] MEDICAL DECISION MAKING: [Suspect gastritis secondary to the prednisone she was on, possible gastroenteritis. We'll check CT abdomen and basic labs. She will monitor this. She has left upper quadrant tenderness, could be possible kidney stone or splenomegaly although likelihood low. IV fluids ordered. Patient will be closely monitored and reevaluated afterwards. ] ER Progress Note PROGRESS NOTES: [ 0440: Patient tolerating by mouth at this time. Labs unremarkable as well as CT. There is a left ovarian cyst patient has been notified of. Currently on her cycle , likely related to this. Patient now reports is a family history of Crohn's disease and she was recommended getting and endoscopy and colonoscopy done to evaluate for this. This could be the first flare. For now as she is tolerated by mouth she can go home, f/u outpatient/ Medications/Treatment plan discussed. Results Discussed Patient agreeable to the plan. Warning precautions and discharge instructions discussed. ] DISCHARGE PLAN: Condition: [Stable]. Disposition: [Medically cleared], Discharged Date/Time: [ 0440] to Home Prescriptions:famotidine 20 mg, By Mouth Twice a day, 30 Day(s),, PRN 60 Tab ondansetron 4 mg, Under the Tongue 3 Times a day, 7 Day(s),, PRN Nausea and Vomitting 21 Tab[ ] Limitations: [Limited activity, Limited work, No school, No sports, No heavy lifting.] Patient Education: Abdominal Pain, Adult Follow up with: Provider: Follow up with primary care provider Specialty: Address: Date: 5 to 7 days Comment: Call for an AppointmentReturn to the emergency room for any worsening of or development of chest pain, difficulty breathing, nausea, vomiting, numbness, tingling, weakness, abdominal pain, or any generalized worsening of your condition. Counseled: [Patient]. FINAL DIAGNOSIS: [Abdominal Pain ] SCRIBE ATTESTATION: Moriah Whitten, am serving as a scribe to document services personally performed by Dr. Mckeon based on the patient's responses to questions from the provider and the provider's statement to me. This chart accurately reflects the work and decisions made by me.Problem List/Past Medical History Ongoing No chronic problems Historical No qualifying dataProcedure/Surgical History [place] tooth.Medications Home No active home medications ED Administered Medications Sodium Chloride 0.9%: 1,000 mL Adm Date/time:11/21/2017 01:47 Route: IV ondansetron: 4 mg Adm Date/time:11/21/2017 02:16 Route: IV Push Prescriptions Pepcid 20 mg oral tablet, 20 mg= 1 Tab, PO, BID Zofran ODT 4 mg oral tablet, disintegrating, 4 mg= 1 Tab, Subl, TID, PRNAllergies Compazine (Anger)Social History Alcohol - Denies Alcohol Use Substance Abuse - Denies Substance Abuse Tobacco Smoking Status: Current some day smoker Type of Smoker: Heavy smoker Type of Tobacco Use: CigarettesLab Results POINT OF CARE TESTING bilirubin urine poct: 1+ small ketones urine poct: 3+ large specific gravity urine poct: 1.030 blood urine poct: 2+ moderate ph urine poct: 5 protein urine poct: Trace urobilinogen urine poct: 0 nitrite urine poct: Negative (Normal) leukocytes urine poct: Trace test poct: Negative test poct -clinic: Negative urine color poct -clinic: Yellow (Normal) urine clarity poct -clinic: Cloudy glucose urine poct: Negative (Normal) HEMATOLOGY wbc count: 6.4 red blood cell count: 4.57 hemoglobin: 11.3 (Low) Ref Range: 12.0 - 16.0 hematocrit: 34.8 (Low) Ref Range: 35.0 - 45.0 mcv: 76.1 (Low) Ref Range: 80.0 - 97.0 mch: 24.8 (Low) Ref Range: 27.0 - 34.0 mchc: 32.6 rdw: 20.1 (High) Ref Range: 11.0 - 14.8 platelet count: 251 mpv: 8.9 URINALYSIS. wbc urine: 6 (High) Ref Range: 0 - 5 rbc urine: 6 (High) Ref Range: 0 - 5 bacteria urine: FEW (Abnormal) squamous epithelial cells urin: MANY (Abnormal) mucous urine: MANY (Abnormal) amorphous sediment urine: FEW (Abnormal) appearance urine: TURBID (Abnormal) color urine: TELLO ph urine: 5.0 specific gravity urine: 1.032 (High) Ref Range: 1.002 - 1.030 glucose urine: NORMAL blood urine: 10/UL (Abnormal) ketones urine: 80MG/DL (Abnormal) protein urine: 100MG/DL (Abnormal) urobilinogen urine: NORMAL bilirubin urine: NEGATIVE leukocyte esterase urine: 25/UL (Abnormal) nitrite urine: NEGATIVE CHEMISTRY est crcl ibw (ml/min)-rx: 118.22 lipase level: 21 (Low) Ref Range: 22 - 51 albumin level: 4.2 protein: 6.9 bilirubin total: 0.6 bilirubin direct: 0.1 bilirubin indirect: 0.5 alt/sgpt: 15 alkaline phosphatase: 36 ast/sgot: 19 chloride level: 106 gfr estimated : >60 gfr estimated non amer: >60 carbon dioxide level: 25 potassium level: 3.5 (Low) Ref Range: 3.6 - 5.1 sodium level: 139 anion gap: 8.0 bun: 10 glucose level: 88 creatinine: 0.65 (Low) Ref Range: 0.66 - 1.30 calcium total: 9.3 IMAGING RESULTS: Emergency Physician Interpretation: Radiologist CT Interpretation: Interpretation CT Abd and Pelvis w Contrast 03:42:16 IMPRESSION: 1. No acute findings. 2. Approximately 3 cm left ovarian cyst, probably a dominant follicle. Findings provided to the referring service in the emergency department following dictation on 11/21/2017 3:41 AM. [place] thanks you for the opportunity to care for your patient. Workstation ID: [id number] - [id number] ORDERS PLACED: Laboratory: Laboratory Urinalysis Manual POCT (CO) Manjeet Hair MD November 20, 2017 23:01 Completed Urine Test POCT (CO) Manjeet Hair MD November 20, 2017 23:01 Completed CBC Ernestine Mckeon MD November 21, 2017 00:59 Completed BMP (Basic Metabolic Panel) Ernestine Mckeon MD November 21, 2017 00:59 Completed Hepatic Function Panel Ernestine Mckeon MD November 21, 2017 00:59 Completed Lipase Ernestine Mckeon MD November 21, 2017 00:59 Completed Urinalysis with Reflex Microscopic + Reflex Culture Ernestine Mckeon MD November 21, 2017 00:59 Completed GFRAF Ernestine Mckeon MD November 21, 2017 02:02 Completed GFRNAF Ernestine Mckeon MD November 21, 2017 02:02 Completed U MICRO Ernestine Mckeon MD November 21, 2017 02:18 Completed C URINE Ernestine Mckeon MD November 21, 2017 02:[address] / MRI / Ultrasound Abdomen and Pelvis CT w Contrast Ernestine Mckeon MD November 21, 2017 00:59 Completed Normal [facility] ED Physician Notes PDF Normal [facility] GFRaaon 11-21-2017 eGFR (black) mL/min/{1.73_m2} Normal [facility] Comment on above: Result Comment: The MDRD equation has not been validated for those over 70 years, women, patients with serious co-morbid conditions, or with extremes of bodysize, muscle mass of nutritional status. Performed By: #### 6 9405-9, 21118-9t4, 3040-3, 41557-5, 07881-9 ####GERONIMO AQUINO [facility], [address] [place], [place]. GFRbbon 11-21-2017 eGFR (non-black) mL/min/{1.73_m2} Normal [facility] Comment on above: Performed By: #### 6 9405-9, 80985-0h4, 3040-3, 92749-5, 28486- 3 ####GERONIMO AQUINO [facility], [address] [place] [address]. Hepatic Function Panelon Alanine aminotransferase (ALT) 15 Units/L Normal 14-63 [facility] Comment on above: Performed By: #### 6 9405-9, 13384-9z7, 3040-3, 76261-0, 00355- 3 ####GERONIMO AUSTIN [facility], [address] [place], [place]. Albumin 4.2 g/dL Normal 3.5-4.8 [facility] Comment on above: Performed By: #### 6 9405-9, 80717-6e3, 3040-3, 94238-6, 23928- 3 ####GERONIMO AQUINO [facility], [address] [facility], [place], [place]. Alkaline phosphatase (ALP) 36 Units/L Normal 32-91 [facility] Comment on above: Performed By: #### 6 9405-9, 02650-9q2, 3040-3, 32448-3, 63332- 3 ####MUKUNDMEL JOSEMANUEL [facility], [address] [place], [place]. Aspartate aminotransferase (AST) 19 Units/L Normal 15-41 [facility] Comment on above: Performed By: #### 6 9405-9, 42955-1a6, 3040-3, 37349-8, 12368- 3 ####[facility], [address] [place], [place]. Bilirubin (direct) 0.1 mg/dL Normal 0.1-0.5 [facility] Comment on above: Performed By: #### 6 9405-9, 22630-0z4, 3040-3, 13585-5, 41000- 3 ####[facility], [address] [place], [place]. Bilirubin (total) 0.6 mg/dL Normal 0.3-1.2 [facility] Comment on above: Performed By: #### 6 9405-9, 71599-2q0, 3040-3, 18133-4, 69238- 3 ####[facility], [address] [place], [place]. Bilirubin.indirect mass conc 0.5 mg/dL Normal 0.0-1.0 [facility] Comment on above: Performed By: #### 6 9405-9, 91355-8d1, 3040-3, 32107-1, 38574- 3 ####[facility], [address] [place], [place]. Protein 6.9 g/dL Normal 6.1-7.9 [facility] Comment on above: Performed By: #### 6 9405-9, 30190-6n6, 3040-3, 05189-6, 61443- 3 ####[facility], [address], [place]. Lipaseon 11-21-2017 Lipase 21 Units/L Low 22-51 [facility] Comment on above: Performed By: #### 6 9405-9, 81336-4g2, 3040-3, 62460-3, 83534- 3 ####[facility], [address], [place]. Urinalysis Microscopicon Urine, amorphous crystals presence in sediment FEW Abnormal NONE/HPF [facility] Comment on above: Performed By: #### 5 8077-9, 10329-4 ####[facility], [address], [place].#### 630-4 ####[address] [place], [place] Urine, bacteria in sediment FEW Abnormal NONE/HPF [facility] Comment on above: Performed By: #### 5 8077-9, 36309-0 ####[facility], [address] [place] [address] AVE.[place], [place].#### 630-4 ####[address] [place], [place] Urine, erythrocytes in sediment by area 6 /[HPF] High 0-5 [facility] Comment on above: Performed By: #### 5 8077-9, 92376-9 ####[facility], [address] [place] [address] AVE.[place], [place].#### 630-4 ####[address] [place], [place] Urine, mucus presence in sediment MANY Abnormal NONE/LPF [facility] Comment on above: Performed By: #### 5 8077-9, 58744-3 ####[facility], [address] [place], [place] [address]E.[place], [place].#### 630-4 ####[address] [place], [place] Urine, squamous cells in sediment MANY Abnormal FEW/LPF [facility] Comment on above: Performed By: #### 5 8077-9, 93096-0 ####[facility], [address], [place].#### 630-4 ####[address] [address] [place], [place] WBC Urine 6 /hpf High 0-5 [facility] Comment on above: Performed By: #### 5 8077-9, 04224-1 ####[facility], [address], [place].#### 630-4 ####[address] [address] [address] [place], [place] Urinalysis with Microscopic Automatic with Reflexon 11-21-2017 Bilirubin Test strip mass conc (U) Negative Normal NEGATIVE [facility] Comment on above: Performed By: #### 5 8077-9, 74707-5 ####[facility], [address], [place].#### 630-4 ####[address] [place], [place] Glucose Test strip mass conc (U) NORMAL Normal NORMAL [facility] Comment on above: Performed By: #### 5 8077-9, 80482-1 ####[facility], [facility], [place].#### [address] ####[address] Ketones Test strip mass conc (U) 80MG/DL Abnormal NEGATIVE [facility] Comment on above: Performed By: #### 5 8077-9, 59771-2 ####[facility], [facility], [place].#### 630-[address] ####[address] Nitrite Test strip mass conc (U) Negative Normal NEGATIVE [facility] Comment on above: Performed By: #### 5 8077-9, 71474-9 ####[facility], [address], [place].#### 630-4 ####[address] [place], [place] Urine, appearance TURBID Abnormal CLEAR [facility] Comment on above: Performed By: #### 5 8077-9, 42705-9 ####[facility], [address], [place].#### 630-4 ####[facility] [address] [place], [place] Urine, color TELLO Normal YELLOW [facility] Comment on above: Performed By: #### 5 8077-9, 83218-7 ####[facility], [address] [place], [place] [address]E.[place], [place].#### 630-4 ####[facility] [address] [place] Urine, hemoglobin presence 10/UL Abnormal NEGATIVE [facility] Comment on above: Performed By: #### 5 8077-9, 18868-2 ####[facility], [address] [place], [place] [address]E.[place], [place].#### 630-4 ####[address] [place], [place] Urine, leukocyte esterase presence 25/UL Abnormal NEGATIVE [facility] Comment on above: Performed By: #### 5 8077-9, 79457-2 ####[facility], [address] [place], [place] [address]E.[place], [place].#### 630-4 ####[address] [place], [place] Urine, pH 5.0 [pH] Normal 4.5-8.0 [facility] Comment on above: Performed By: #### 5 8077-9, 34729-7 ####[facility], [address] [place], [place] [address]E.[place], [place].#### 630-4 ####[address] [place], [place] Urine, protein 100 mg/dL Abnormal NEGATIVE [facility] Comment on above: Performed By: #### 5 8077-9, 64690-2 ####[facility], [address] [place] [facility] [place]#### 630-4 ####[address] [place], [place] Urine, specific gravity 1.032 High 1.002-1.030 [facility] Comment on above: Performed By: #### 5 8077-9, 99262-7 ####[facility], [address] [place], [place].#### 630-4 ####[facility] [address] [place] Urobilinogen Test strip mass conc (U) NORMAL Normal NORMAL [facility] Comment on above: Performed By: #### 5 8077-9, 52915-9 ####[facility], [address] [place], [place].#### 630-4 ####[facility] [address] [place], [place] Depart Summaryon 10-10-2017 Depart Summary EMERGENCY DEPARTMENT DISCHARGE SUMMARYPATIENT NAME:JODI BOSTON MRN: [id number]: 22 Years SEX: Female PHONE:[phone]: 10/10/2017 1:18 PM : 1995 ATTENDING PHYSICIAN:Yaneth Radford MD PCP: Physician, No PCP CHIEF COMPLAINT: Fever, Cough/ST, Congestion Allergies Compazine (Anger)Problems Active No Chronic Problems DISCHARGE DIAGNOSIS: DISCHARGE INSTRUCTIONS: Keiry's work release. ([id number]); Upper Respiratory Infection, Adult; Acute Bronchitis; Pharyngitis; Strep Throat; Sinusitis, Adult ED PHYSICIAN DOCUMENTATION: History of Present Illness I have introduced myself as the PA and informed the patient of the supervising/ collaborating physician who is available upon request. I have discussed the case with the ED physician who participated in the decisions regarding any therapeutic interventions. Physician: Dr. [id number] white female with history of heart murmur but no additional significant past medical history in an otherwise good general health. Patient is a one pack per week smoker.Patient presents today via private auto from home for evaluation of nasal congestion, sore throat, bilateral ear pain/fullness, facial pain/pressure, cough, fevers high of 101, nausea with vomiting and loose stools. Patient states her symptoms began several weeks ago with significant nasal congestion and mild cough. She used numerous tpyo-vzs-kwdvhwo medications and thought that she was getting better however over the last 3-4 days she has had worsening symptoms with fevers high of 101, increasing facial pressure, sore throat and cough that has been productive with green yellow phlegm. Over the last 3 days patient states her cough is also been worse with associated nausea and multiple episodes of vomiting and loose stools no abdominal pain. No rashes or lesions.+ Fever high of 101. No chest pain although has had occasional shortness of breath. No hemoptysis. No abdominal pain.Has not taken anything for symptoms prior to arrival today. Medical Decision Making I reviewed the nurse's notes.Chest x-ray with no acute cardiopulmonary disease or abnormalities. Patient feeling better following DuoNeb, Decadron, Tylenol and Zofran with no additional episodes of emesis throughout stay in the emergency department. Patient's vital signs have remained stable with O2 sats of 99% on room air, minimally elevated temperature 99.5, heart rate of 100 and rest for rate of 18 with patient sitting up in bed, nontoxic in appearance in no acute respiratory distress I do feel she is safe to be discharged home.I discussed with the patient that I do suspect her symptoms are probably due to sinusitis secondary to recent upper respiratory infection/bronchitis with possible strep pharyngitis as she did have a recent exposure with erythematous tonsils, sore throat, fever, cervical lymphadenopathy and, I will treat her for acute sinusitis which will cover for strep pharyngitis with oral amoxicillin to go home with. I will also treat her with Mucinex D, Afrin nasal spray, ibuprofen, cough suppressant, Tessalon Perles, Zofran and albuterol inhaler to treat symptoms of upper respiratory symptoms/cough/bronchitis. Patient will be given a work note for today and tomorrow and she will be instructed to rest and drink any fluids and to return to the ER immediately for change or worsening of symptoms especially accompanied by fevers or than 101, coughing up blood, nausea with vomiting, bloody or black stools or any symptoms that appear to be significantly worsening instead of improving. Patient is okay with this plan and ready for discharge.Chest x-ray indicates: FINDINGS: The heart and mediastinum are not enlarged. Vasculature is not increased. No acute consolidation, effusion or pneumothorax is identified.IMPRESSION: No acute cardiopulmonary disease identified. Procedure DISPOSITION:Time of Departure From ER 10/10/2017 14:43 Discharge/Transfer From ER Home 01 MEDICATION LISTS: CURRENT MEDICATION LISTalbuterol (albuterol HFA 90 mcg/inh inhalation aerosol) 2 Puff(s) Inhalation 4 Times/Day. Refills: 0.amoxicillin (amoxicillin 875 mg oral tablet) 1 Tab(s) By Mouth Twice a day for 14 Days. Refills: 0.benzonatate (Tessalon 200 mg oral capsule) 1 Capsule By Mouth 3 Times a day for 5 Days. Refills: 0.dextromethorphan-doxylami ne (NyQuil Cough oral liquid) Take as instructed on bottle. Refills: 0.GuaiFENesin-Pseudoephedri ne (Mucinex D Max Strength oral tablet, extended release) 1 Tab(s) By Mouth every 12 hours for 7 Days. Refills: 0.ibuprofen (ibuprofen 600 mg oral tablet) 1 Tab(s) By Mouth 4 Times/Day as needed as needed for pain for 7 Days. Refills: 0.ondansetron (Zofran ODT 4 mg oral tablet, disintegrating) 1 Tab(s) By Mouth every 5 hours as needed as needed for nausea/vomiting for 2 Days. Refills: 0.sodium chloride nasal (Afrin Saline nasal spray) 2 sprays each nostril twice daily. Do not use for more than 4 days in a row.. Refills: 0. MEDICATIONS GIVEN DURING MEDICAL VISITdexamethasone 10 mg last dose given on 10/10/2017 at 13:49 Route: By Mouth Inject Vial for ORAL Use ibuprofen 600 mg last dose given on 10/10/2017 at 13:46 Route: By Mouth Maximum of 3200 mg / 24 hr ondansetron 4 mg last dose given on 10/10/2017 at 13:46 Route: By Mouth This file is not coded for chemotherapy reimbursement- albuterol-ipratropium 3 mL last dose given on 10/10/2017 at 14:00 Route: Nebulized Medication LAB RESULTS: RADIOLOGY:RADIOLOGY RESULT(S) (Please contact Medical Records office for further information): 10/10/2017 13:54 XR Chest 2 Views STUDY: Chest two views dated 10/10/2017 1:59 PM.COMPARISON: None.HISTORY: Cough. Fever. 3 days of symptoms. Back pain. Smoking history.FINDINGS: The heart and mediastinum are not enlarged. Vasculature is not increased. No acute consolidation, effusion or pneumothorax is identified.IMPRESSION: No acute cardiopulmonary disease identified. Immediate final results were provided per protocol.[place] thanks you for the opportunity to care for your patient. Workstation ID: [id number] FOLLOW UP:FOLLOW-UP APPOINTMENTS: Provider: Specialty: Address: Date: [facility] ([facility]) [address] [place] [phone] () Follow-up as needed Comment: This is a primary care provider. Please follow-up with for further evaluation/management of symptoms. Provider: Specialty: Address: Date: Return to Emergency Department Follow-up as needed Comment: Return to the ER immediately for change or worsening of symptoms especially accompanied by fevers greater than 101, chest pain, shortness of breath, coughing up blood, nausea with vomiting and not being able to keep medications down or any symptoms that appear to be significantly worsening instead of improving. Normal [facility] ED Pat Eduon 10-10-2017 ED Pat Edu [place] [address] [facility] Discharge Instructions JODI BOSTON , Please provide this information to your Primary Care/Specialist Name : JODI BOSTON Current Date : 10/10/2017 14:43:31DOB : 1995 12:00 PM Primary Care Physician: Physician, [place] PCP Diagnosis : Follow-Up Instructions:JODI BOSTON has been given these follow-up instructions: FOLLOW-UP APPOINTMENTS: Provider: Specialty: Address: Date: [facility] ([facility]) [address] [place] [phone] (6) Follow-up as needed Comment: This is a primary care provider. Please follow-up with for further evaluation/management of symptoms. Provider: Specialty: Address: Date: Return to Emergency Department Follow-up as needed Comment: Return to the ER immediately for change or worsening of symptoms especially accompanied by fevers greater than 101, chest pain, shortness of breath, coughing up blood, nausea with vomiting and not being able to keep medications down or any symptoms that appear to be significantly worsening instead of improving. Laboratory Orders: None Ordered Radiology Orders: Name: Status: XR Chest 2 Views Completed Diagnostic Tests: None Ordered Procedure(s) and Patient Education(s) : Keiry's work release. ([id number]); Upper Respiratory Infection, Adult; Acute Bronchitis; Pharyngitis; Strep Throat; Sinusitis, Adult EMERGENCY SERVICES MEDICATION LISTLista de Medicaciones de los Servicios de Emergencia Name JODI BOSTON MRN ([facility])-[id number] PLEASE READ THE FOLLOWING REGARDING YOUR MEDICATIONS Based on the information available during your visit we have given you the medication instructions below. Continue taking medications you took prior to your visit unless you have been told to change. Please share this information with your own doctor. Carry a list of your medications with you in case of an emergency. Update it when medications are stopped, doses are changed, or new medications (including ftul-rbi-fkpagwu products) are added. If you have any questions, check with your doctor. Por la informaci??n disponible kiera rodrigues visita, las instrucciones de medicaci??n aparecen debajo. Favor de continuar tomando las medicaciones Ud. jeffery?? antes de rodrigues visita por lo menos que hay cambios. Favor de compartir esta informaci??n con rodrigues medico. Lleva orquidea lista de medicaciones consigo por jason de emergenc??a. Actualiza la lista cuando Ud. zaire de crystal las medicaciones, si cambian las dosis, o si hay nuevas medicaciones a??adidas (incluyendo medicaciones vendidas sin prescripci??n). Favor de preguntar a rodrigues medico por cualquier shaun. THESE ARE THE MEDICATIONS YOU SHOULD BE TAKINGalbuterol (albuterol HFA 90 mcg/inh inhalation aerosol) 2 Puff(s) Inhalation 4 Times/Day. Refills: 0.amoxicillin (amoxicillin 875 mg oral tablet) 1 Tab(s) By Mouth Twice a day for 14 Days. Refills: 0.benzonatate (Tessalon 200 mg oral capsule) 1 Capsule By Mouth 3 Times a day for 5 Days. Refills: 0.dextromethorphan-doxylami ne (NyQuil Cough oral liquid) Take as instructed on bottle. Refills: 0.GuaiFENesin-Pseudoephedri ne (Mucinex D Max Strength oral tablet, extended release) 1 Tab(s) By Mouth every 12 hours for 7 Days. Refills: 0.ibuprofen (ibuprofen 600 mg oral tablet) 1 Tab(s) By Mouth 4 Times/Day as needed as needed for pain for 7 Days. Refills: 0.ondansetron (Zofran ODT 4 mg oral tablet, disintegrating) 1 Tab(s) By Mouth every 5 hours as needed as needed for nausea/vomiting for 2 Days. Refills: 0.sodium chloride nasal (Afrin Saline nasal spray) 2 sprays each nostril twice daily. Do not use for more than 4 days in a row.. Refills: 0.MEDICATIONS GIVEN DURING MEDICAL VISITdexamethasone 10 mg last dose given on 10/10/2017 at 13:49 Route: By Mouth Inject Vial for ORAL Use ibuprofen 600 mg last dose given on 10/10/2017 at 13:46 Route: By Mouth Maximum of 3200 mg / 24 hr ondansetron 4 mg last dose given on 10/10/2017 at 13:46 Route: By Mouth This file is not coded for chemotherapy reimbursement- albuterol-ipratropium 3 mL last dose given on 10/10/2017 at 14:00 Route: Nebulized Medication NON-MEDICATION PRESCRIPTION SCHEDULING PHONE NUMBER: MEDICATION CHANGE DETAILS (Not your Final Home Medication List) During the course of your visit, your home medication list was updated with the most current information. The details of those changes are shown below: NEW MEDICATIONSPrinted Prescriptionsalbuterol (albuterol HFA 90 mcg/inh inhalation aerosol) 2 Puff(s) Inhalation 4 Times/Day. Refills: 0.Comment amox icillin (amoxicillin 875 mg oral tablet) 1 Tab(s) By Mouth Twice a day for 14 Days. Refills: 0.Comment benz onatate (Tessalon 200 mg oral capsule) 1 Capsule By Mouth 3 Times a day for 5 Days. Refills: 0.Comment dext romethorphan-doxylamine (NyQuil Cough oral liquid) Take as instructed on bottle. Refills: 0.Comment Guai FENesin-Pseudoephedrine (Mucinex D Max Strength oral tablet, extended release) 1 Tab(s) By Mouth every 12 hours for 7 Days. Refills: 0.Comment ibup rofen (ibuprofen 600 mg oral tablet) 1 Tab(s) By Mouth 4 Times/Day as needed as needed for pain for 7 Days. Refills: 0.Comment onda nsetron (Zofran ODT 4 mg oral tablet, disintegrating) 1 Tab(s) By Mouth every 5 hours as needed as needed for nausea/vomiting for 2 Days. Refills: 0.Comment sodi um chloride nasal (Afrin Saline nasal spray) 2 sprays each nostril twice daily. Do not use for more than 4 days in a row.. Refills: 0.Comment UPDA MARK MEDICATIONSNoneUNCHANGED MEDICATIONSNoneSTOP TAKING THESE MEDICATIONSNoneDO NOT TAKE UNTIL YOU TALK TO YOUR DOCTORNone [place] [id number] Emergency Department Discharge Instructions Name: JODI BOSTON Current Date: 10/10/2017 14:43:31 : 1995 12:00 PM Primary Physician: Physician, No PCP We would like to thank you for choosing [facility] for your emergency medical needs. We examined and treated you today on an emergency basis only. This was not a substitute for, or an effort to provide, complete medical care. In most cases, you must let your doctor (or the doctor we referred you to) check you again. Tell your doctor about any new or lasting problems. We cannot recognize and treat all injuries or illnesses in one emergency department visit. After you leave, you should follow the directions attached. Instructions for obtaining X-rays:When following up with your doctor, you may need to take copies of your x-rays that were done in the Emergency Department. If you didn't receive these upon your discharge from the emergency department, please call . When the final report becomes available and it is reviewed, the emergency department will attempt to contact you if there are any changes in your instructions. It is important that you leave accurate information with us on how to contact you. IF you cannot be contacted, YOU must contact the follow-up doctor that you were assigned to make sure that the final official x-ray report does not require a change in your treatment. Instructions for obtaining medical records:If you need a copy of your medical records for follow-up, please contact the Health Information Management Department at . Their office hours are 8 AM- 4:30 PM, Thursday through Thursday. Please note: Results are not immediately available. Please allow a minimum of 36 hours for documentation and results.If you were prescribed an antibiotic:Antibiotics are life-saving drugs and they need to be used properly. Your team might change your antibiotic because test results show that a different antibiotic would be better to treat your infection. Like all medications, antibiotics have side effects. Some can be serious. This includes the risk of getting an antibiotic-resistant infection later, which may be difficult to treat. Remember to take your antibiotics as prescribed. If you have any questions please talk to your healthcare team.Seatbelts:There is no doubt that seatbelts save lives. Every day, people without seatbelts have more serious injuries. Have everyone buckle up, using age appropriate seatbelts or car seats, to reduce their risk of injury.Smoking:If you do smoke, we encourage you to stop. Smoking affects all aspects of your health and the health of those around you. Call the [employer] at 6-139-WMLJ-USA or the [employer] at 7-738-LFZ-8012 for more information.High blood pressure: Your screening blood pressure today was 115 mm Hg / . Hypertension (high blood pressure) is blood pressure over 120/80. People with hypertension should contact their primary care provider within 30 days to follow up. Check your patient portal for additional blood pressure information.Immunizations:I mmunization is a way to protect against deadly infections. Discuss this with your child's library page, or Public Health Department. Your family practice doctor can determine if you need pneumonia or flu vaccine. The [facility] Department can be reached at .Domestic Violence:If you are a victim of domestic violence (physical, verbal, or emotional), you are not alone. Discuss this with your physician or a friend and call Choices Hotline ( for assistance and support.You are the most important factor in your recovery. Follow the provided instructions carefully. Take your medications as prescribed. Most importantly, see a doctor again as discussed. If you have problems that we have not discussed, call or visit your doctor right away. If you do not have a primary care physician, we have provided one for you to follow up with. When you call for an appointment, please inform them that you were seen in the emergency department and the date of your visit. If you are unable to reach your doctor and are still experiencing problems, return to the emergency department. For assistance finding a primary care physician, call the Physician Referral Line at .Suicide Hotline:Your mental and emotional well-being is important. If you are in a mental health crisis or are having thoughts of suicide, please call the nationwide suicide hotline, anytime day or night, at 4-071-120-ZHNH. Pharmacy Information:Below is a list of 24 hour pharmacies that we are aware of. We suggest that you call the specific pharmacy for their hours before traveling to a location. Hours may vary on holidays. [facility] [address] [place] [address] [phone] [place] [address] [phone] [place] [address] [phone] [address] [phone] [place] [address] [phone] [place] [address] [phone] [place] [address] [phone] Take all medications as directed. If you need prescription assistance, contact the following agencies:?? [facility] for Prescription Assistance at or www.Perfect Audiencex.org?? [facility] Rx at or www.PT [place] Inti Selarasrx.org?? www.Cold GenesysRDrop Messages.PinkUP is a site with many valuable coupons Patient Education Materials JODI BOSTON has been given the following patient education materials: [facility] [address] [place], [place] [address]Phone: [place] Release FormThis notice verifies that your employee JODI BOSTON was seen in this facility on 10/10/2017 14:43:31.Patient is excused from work on 10/10/17 and 10/11/17. ___ ED Physician/Provider Sinusitis, AdultSinusitis is redness, soreness, and inflammation of the paranasal sinuses. Paranasal sinuses are air pockets within the bones of your face. They are located beneath your eyes, in the middle of your forehead, and above your eyes. In healthy paranasal sinuses, mucus is able to drain out, and air is able to circulate through them by way of your nose. However, when your paranasal sinuses are inflamed, mucus and air can become trapped. This can allow bacteria and other germs to grow and cause infection.Sinusitis can develop quickly and last only a short time (acute) or continue over a long period (chronic). Sinusitis that lasts for more than 12 weeks is considered chronic. CAUSESCauses of sinusitis include:???Allergies.???Str uctural abnormalities, such as displacement of the cartilage that separates your nostrils (deviated septum), which can decrease the air flow through your nose and sinuses and affect sinus drainage.???Functional abnormalities, such as when the small hairs (cilia) that line your sinuses and help remove mucus do not work properly or are not present.SIGNS AND SYMPTOMSSymptoms of acute and chronic sinusitis are the same. The primary symptoms are pain and pressure around the affected sinuses. Other symptoms include:???Upper toothache.???Earache.???Hea dache.???Bad breath.???Decreased sense of smell and taste.???A cough, which worsens when you are lying flat.???Fatigue.???Fever.?? ?Thick drainage from your nose, which often is green and may contain pus (purulent).???Swelling and warmth over the affected sinuses.DIAGNOSISYour health care provider will perform a physical exam. During your exam, your health care provider may perform any of the following to help determine if you have acute sinusitis or chronic sinusitis:???Look in your nose for signs of abnormal growths in your nostrils (nasal polyps).???Tap over the affected sinus to check for signs of infection.???View the inside of your sinuses using an imaging device that has a light attached (endoscope).If your health care provider suspects that you have chronic sinusitis, one or more of the following tests may be recommended:???Allergy tests.???Nasal culture. A sample of mucus is taken from your nose, sent to a lab, and screened for bacteria.???Nasal cytology. A sample of mucus is taken from your nose and examined by your health care provider to determine if your sinusitis is related to an allergy.TREATMENTMost cases of acute sinusitis are related to a viral infection and will resolve on their own within 10 days. Sometimes, medicines are prescribed to help relieve symptoms of both acute and chronic sinusitis. These may include pain medicines, decongestants, nasal steroid sprays, or saline sprays.However, for sinusitis related to a bacterial infection, your health care provider will prescribe antibiotic medicines. These are medicines that will help kill the bacteria causing the infection.Rarely, sinusitis is caused by a fungal infection. In these cases, your health care provider will prescribe antifungal medicine.For some cases of chronic sinusitis, surgery is needed. Generally, these are cases in which sinusitis recurs more than 3 times per year, despite other treatments.HOME CARE INSTRUCTIONS???Drink plenty of water. Water helps thin the mucus so your sinuses can drain more easily.???Use a humidifier.???Inhale steam 3?4 times a day (for example, sit in the bathroom with the shower running).???Apply a warm, moist washcloth to your face 3?4 times a day, or as directed by your health care provider.???Use saline nasal sprays to help moisten and clean your sinuses.???Take medicines only as directed by your health care provider.???If you were prescribed either an antibiotic or antifungal medicine, finish it all even if you start to feel better.SEEK IMMEDIATE MEDICAL CARE IF:???You have increasing pain or severe headaches.???You have nausea, vomiting, or drowsiness.???You have swelling around your face.???You have vision problems.???You have a stiff neck.???You have difficulty breathing.This information is not intended to replace advice given to you by your health care provider. Make sure you discuss any questions you have with your health care provider.Document Released: 07/06/2006 Document Revised: 07/27/2015 Document Reviewed: 07/20/2012[employer] Interactive Patient Education ?2016 [employer]ENTPharyngitisPharyngit is is redness, pain, and swelling (inflammation) of your pharynx. CAUSESPharyngitis is usually caused by infection. Most of the time, these infections are from viruses (viral) and are part of a cold. However, sometimes pharyngitis is caused by bacteria (bacterial). Pharyngitis can also be caused by allergies. Viral pharyngitis may be spread from person to person by coughing, sneezing, and personal items or utensils (cups, forks, spoons, toothbrushes). Bacterial pharyngitis may be spread from person to person by more intimate contact, such as kissing. SIGNS AND SYMPTOMSSymptoms of pharyngitis include: ?Sore throat. ?Tiredness (fatigue). ?Low-grade fever. ?Headache.???Joint pain and muscle aches.???Skin rashes.???Swollen lymph nodes.???Plaque-like film on throat or tonsils (often seen with bacterial pharyngitis).DIAGNOSISYour health care provider will ask you questions about your illness and your symptoms. Your medical history, along with a physical exam, is often all that is needed to diagnose pharyngitis. Sometimes, a rapid strep test is done. Other lab tests may also be done, depending on the suspected cause. TREATMENTViral pharyngitis will usually get better in 3?4 days without the use of medicine. Bacterial pharyngitis is treated with medicines that kill germs (antibiotics). HOME CARE INSTRUCTIONS???Drink enough water and fluids to keep your urine clear or pale yellow. ?Only take [id number] or prescription medicines as directed by your health care provider: ?If you are prescribed antibiotics, make sure you finish them even if you start to feel better. ?Do not take aspirin. ?Get lots of rest. ?Gargle with 8 oz of salt water (? tsp of salt per 1 qt of water) as often as every 1?2 hours to soothe your throat. ?Throat lozenges (if you are not at risk for choking) or sprays may be used to soothe your throat. SEEK MEDICAL CARE IF:???You have large, tender lumps in your neck.???You have a rash.???You cough up green, yellow-brown, or bloody spit.SEEK IMMEDIATE MEDICAL CARE IF:???Your neck becomes stiff.???You drool or are unable to swallow liquids.???You vomit or are unable to keep medicines or liquids down.???You have severe pain that does not go away with the use of recommended medicines.???You have trouble breathing (not caused by a stuffy nose).MAKE SURE YOU:???Understand these instructions. ???Will watch your condition.???Will get help right away if you are not doing well or get worse.This information is not intended to replace advice given to you by your health care provider. Make sure you discuss any questions you have with your health care provider.Document Released: 07/06/2006 Document Revised: 04/26/2014 Document Reviewed: 03/13/2014[employer] Interactive Patient Education ?2016 [email or web address].Strep ThroatStrep throat is an infection of the throat caused by a bacteria named Streptococcus pyogenes. Your health care provider may call the infection streptococcal tonsillitis or pharyngitis depending on whether there are signs of inflammation in the tonsils or back of the throat. Strep throat is most common in children aged 5?15 years during the cold months of the year, but it can occur in people of any age during any season. This infection is spread from person to person (contagious) through coughing, sneezing, or other close contact. SIGNS AND SYMPTOMS???Fever or chills.???Painful, swollen, red tonsils or throat.???Pain or difficulty when swallowing.???White or yellow spots on the tonsils or throat.???Swollen, tender lymph nodes or glands of the neck or under the jaw.???Red rash all over the body (rare).DIAGNOSISMany different infections can cause the same symptoms. A test must be done to confirm the diagnosis so the right treatment can be given. A rapid strep test can help your health care provider make the diagnosis in a few minutes. If this test is not available, a light swab of the infected area can be used for a throat culture test. If a throat culture test is done, results are usually available in a day or two.TREATMENTStrep throat is treated with antibiotic medicine.HOME CARE INSTRUCTIONS???Gargle with 1 tsp of salt in 1 cup of warm water, 3?4 times per day or as needed for comfort.???Family members who also have a sore throat or fever should be tested for strep throat and treated with antibiotics if they have the strep infection.???Make sure everyone in your household washes their hands well.??? Do not share food, drinking cups, or personal items that could cause the infection to spread to others.???You may need to eat a soft food diet until your sore throat gets better.???Drink enough water and fluids to keep your urine clear or pale yellow. This will help prevent dehydration.???Get plenty of rest.???Stay home from school, day care, or work until you have been on antibiotics for 24 hours.???Take medicines only as directed by your health care provider.???Take your antibiotic medicine as directed by your health care provider. Finish it even if you start to feel better.SEEK MEDICAL CARE IF:???The glands in your neck continue to enlarge.???You develop a rash, cough, or earache.???You cough up green, yellow-brown, or bloody sputum.???You have pain or discomfort not controlled by medicines.???Your problems seem to be getting worse rather than better. ???You have a fever.SEEK IMMEDIATE MEDICAL CARE IF:???You develop any new symptoms such as vomiting, severe headache, stiff or painful neck, chest pain, shortness of breath, or trouble swallowing.???You develop severe throat pain, drooling, or changes in your voice.???You develop swelling of the neck, or the skin on the neck becomes red and tender.???You develop signs of dehydration, such as fatigue, dry mouth, and decreased urination.???You become increasingly sleepy, or you cannot wake up completely. MAKE SURE YOU:???Understand these instructions.???Will watch your condition.???Will get help right away if you are not doing well or get worse.This information is not intended to replace advice given to you by your health care provider. Make sure you discuss any questions you have with your health care provider.Document Released: 07/03/2001 Document Revised: 07/27/2015 Document Reviewed: 10/29/2015[employer] Interactive Patient Education ?2016 [employer]Emergency MedicineUpper Respiratory Infection, AdultMost upper respiratory infections (URIs) are a viral infection of the air passages leading to the lungs. A URI affects the nose, throat, and upper air passages. The most common type of URI is nasopharyngitis and is typically referred to as the common cold. URIs run their course and usually go away on their own. Most of the time, a URI does not require medical attention, but sometimes a bacterial infection in the upper airways can follow a viral infection. This is called a secondary infection. Sinus and middle ear infections are common types of secondary upper respiratory infections.Bacterial pneumonia can also complicate a URI. A URI can worsen asthma and chronic obstructive pulmonary disease (COPD). Sometimes, these complications can require emergency medical care and may be life threatening. CAUSESAlmost all URIs are caused by viruses. A virus is a type of germ and can spread from one person to another. RISKS FACTORSYou may be at risk for a URI if: ???You smoke. ?You have chronic heart or lung disease. ???You have a weakened defense (immune) system. ?You are very young or very old. ?You have nasal allergies or asthma.???You work in crowded or poorly ventilated areas.???You work in health care facilities or schools.SIGNS AND SYMPTOMSSymptoms typically develop 2?3 days after you come in contact with a cold virus. Most viral URIs last 7?10 days. However, viral URIs from the influenza virus (flu virus) can last 14?18 days and are typically more severe. Symptoms may include: ???Runny or stuffy (congested) nose. ?Sneezing. ?Cough. ?Sore throat. ?Headache. ?Fatigue. ?Fever. ?Loss of appetite. ?Pain in your forehead, behind your eyes, and over your cheekbones (sinus pain). ???Muscle aches. ?DIAGNOSISYour health care provider may diagnose a URI by:???Physical exam.???Tests to check that your symptoms are not due to another condition such as: ???Strep throat.???Sinusitis.???Pneu monia.???Asthma. TREATMENTA URI goes away on its own with time. It cannot be cured with medicines, but medicines may be prescribed or recommended to relieve symptoms. Medicines may help:???Reduce your fever. ???Reduce your cough. ???Relieve nasal congestion. HOME CARE INSTRUCTIONS???Take medicines only as directed by your health care provider. ?Gargle warm saltwater or take cough drops to comfort your throat as directed by your health care provider.???Use a warm mist humidifier or inhale steam from a shower to increase air moisture. This may make it easier to breathe.???Drink enough fluid to keep your urine clear or pale yellow. ?Eat soups and other clear broths and maintain good nutrition. ?Rest as needed. ?Return to work when your temperature has returned to normal or as your health care provider advises. You may need to stay home longer to avoid infecting others. You can also use a face mask and careful hand washing to prevent spread of the virus.???Increase the usage of your inhaler if you have asthma. ?Do not use any tobacco products, including cigarettes, chewing tobacco, or electronic cigarettes. If you need help quitting, ask your health care provider.PREVENTIONThe best way to protect yourself from getting a cold is to practice good hygiene. ???Avoid oral or hand contact with people with cold symptoms. ?Wash your hands often if contact occurs. ?There is no clear evidence that vitamin C, vitamin E, echinacea, or exercise reduces the chance of developing a cold. However, it is always recommended to get plenty of rest, exercise, and practice good nutrition. SEEK MEDICAL CARE IF:???You are getting worse rather than better. ?Your symptoms are not controlled by medicine. ?You have chills.???You have worsening shortness of breath.???You have brown or red mucus.???You have yellow or brown nasal discharge.???You have pain in your face, especially when you bend forward.???You have a fever.???You have swollen neck glands.???You have pain while swallowing.???You have white areas in the back of your throat. SEEK IMMEDIATE MEDICAL CARE IF:???You have severe or persistent:???Headache.???E ar pain.???Sinus pain.???Chest pain.???You have chronic lung disease and any of the following:???Wheezing.???Pr olonged cough.???Coughing up blood.???A change in your usual mucus.???You have a stiff neck.???You have changes in your:???Vision.???Hearing.? ??Thinking.???Mood. MAKE SURE YOU:???Understand these instructions.???Will watch your condition.???Will get help right away if you are not doing well or get worse.This information is not intended to replace advice given to you by your health care provider. Make sure you discuss any questions you have with your health care provider.Document Released: 12/30/2001 Document Revised: 11/20/2015 Document Reviewed: 10/11/2014[employer] Patient Education ?2016 [employer]Acute BronchitisBronchitis is inflammation of the airways that extend from the windpipe into the lungs (bronchi). The inflammation often causes mucus to develop. This leads to a cough, which is the most common symptom of bronchitis. In acute bronchitis, the condition usually develops suddenly and goes away over time, usually in a couple weeks. Smoking, allergies, and asthma can make bronchitis worse. Repeated episodes of bronchitis may cause further lung problems. CAUSESAcute bronchitis is most often caused by the same virus that causes a cold. The virus can spread from person to person (contagious) through coughing, sneezing, and touching contaminated objects.SIGNS AND SYMPTOMS???Cough. ?Fever. ?Coughing up mucus. ?Body aches. ?Chest congestion. ?Chills. ?Shortness of breath. ?Sore throat. ?DIAGNOSISAcute bronchitis is usually diagnosed through a physical exam. Your health care provider will also ask you questions about your medical history. Tests, such as chest X-rays, are sometimes done to rule out other conditions. TREATMENTAcute bronchitis usually goes away in a couple weeks. Oftentimes, no medical treatment is necessary. Medicines are sometimes given for relief of fever or cough. Antibiotic medicines are usually not needed but may be prescribed in certain situations. In some cases, an inhaler may be recommended to help reduce shortness of breath and control the cough. A cool mist vaporizer may also be used to help thin bronchial secretions and make it easier to clear the chest. HOME CARE INSTRUCTIONS???Get plenty of rest. ?Drink enough fluids to keep your urine clear or pale yellow (unless you have a medical condition that requires fluid restriction). Increasing fluids may help thin your respiratory secretions (sputum) and reduce chest congestion, and it will prevent dehydration. ?Take medicines only as directed by your health care provider. ???If you were prescribed an antibiotic medicine, finish it all even if you start to feel better. ???Avoid smoking and secondhand smoke. Exposure to cigarette smoke or irritating chemicals will make bronchitis worse. If you are a smoker, consider using nicotine gum or skin patches to help control withdrawal symptoms. Quitting smoking will help your lungs heal faster. ?Reduce the chances of another bout of acute bronchitis by washing your hands frequently, avoiding people with cold symptoms, and trying not to touch your hands to your mouth, nose, or eyes. ?Keep all follow-up visits as directed by your health care provider. ?SEEK MEDICAL CARE IF:Your symptoms do not improve after 1 week of treatment. SEEK IMMEDIATE MEDICAL CARE IF:???You develop an increased fever or chills. ?You have chest pain. ?You have severe shortness of breath.???You have bloody sputum. ?You develop dehydration.???You faint or repeatedly feel like you are going to pass out.???You develop repeated vomiting.???You develop a severe headache. MAKE SURE YOU:???Understand these instructions. ???Will watch your condition.???Will get help right away if you are not doing well or get worse.This information is not intended to replace advice given to you by your health care provider. Make sure you discuss any questions you have with your health care provider.Document Released: 08/13/2005 Document Revised: 07/27/2015 Document Reviewed: 12/27/2013[employer] Interactive Patient Education ?2016 [employer]><><><><><><><><><><>< ><><><><><><><><><><><><><> Patient Visit Summary Signature TEJ, JODI A has been given the following list of patient education materials, prescriptions and follow-up instructions: TEJ Whitten MORGAN A, have received the above patient education materials/instructions and have verbalized understanding: Date Time Patient Signature Date Time Provider Signature Normal [facility] ED Physician Noteson 018 ED Physician Notes Patient: NORIS BOSTON MRN: [id number] Age: 22 years Sex: Female : 1995 Associated Diagnoses: None Author: Gabriel Hutchinson History of Present Illness I have introduced myself as the PA and informed the patient of the supervising/ collaborating physician who is available upon request. I have discussed the case with the ED physician who participated in the decisions regarding any therapeutic interventions. Physician: Dr. [id number] white female with history of heart murmur but no additional significant past medical history in an otherwise good general health. Patient is a one pack per week smoker.Patient presents today via private auto from home for evaluation of nasal congestion, sore throat, bilateral ear pain/fullness, facial pain/pressure, cough, fevers high of 101, nausea with vomiting and loose stools. Patient states her symptoms began several weeks ago with significant nasal congestion and mild cough. She used numerous stko-qbd-hzmqkys medications and thought that she was getting better however over the last 3-4 days she has had worsening symptoms with fevers high of 101, increasing facial pressure, sore throat and cough that has been productive with green yellow phlegm. Over the last 3 days patient states her cough is also been worse with associated nausea and multiple episodes of vomiting and loose stools no abdominal pain. No rashes or lesions.+ Fever high of 101. No chest pain although has had occasional shortness of breath. No hemoptysis. No abdominal pain.Has not taken anything for symptoms prior to arrival today. Review of Systems as stated per history of present illness all additional review of systems otherwise negative. Health Status Allergies: Allergic Reactions (Selected)Severity Not DocumentedCompazine- Anger.. Medications: (Selected) Inpatient MedicationsOrderedDecadron: 10 mg, PO, OnceDuoNeb Inh Mili: 3 mL, Nebul, OnceZofran ODT: 4 mg, PO, Onceibuprofen: 600 mg, PO, Once. Past Medical/ Family/ Social History Medical history Past Medical History Problem List No active or resolved problems charted Surgical history: No active procedure history items have been selected or recorded.. Family history: No family history items have been selected or recorded.. Physical Examination Vital Signs Vital Signs/Measurements 10/10/2017 13:27 EDT Temperature 99.5 Degrees F NML Temperature Route Oral Pulse Rate 100 BPM NML Respiratory Rate 18 Br PM NML Pulse Oximetry 99 % NML Oxygen Delivery Room air Systolic BP 115 mm Hg NML Diastolic BP 74 mm Hg NML NIBP Method-CC Cuff 10/10/2017 13:23 EDT Pain Score 6 Pain Intensity Scale Numeric Rating Scale-Verbal (Adults) Is Pain Level Acceptable? No Pain Location Site #1 Generalized Pain Characteristics Site #1 Aching Weight 63.8 kg Weight Type Actual Weight Lb 140 lbs Weight Oz 10.48 oz Height 162.56 cm Height Type Pt reported Height Ft 5 ft Height in 4 Inch BSA 1.68 m2 Body Mass Index 24.1 kg/m2 . PHYSICAL EXAM:CONSTITUTIONAL: 22-year-old white female sitting up in chair. Patient is alone. She is alert and oriented X3, well-nourished, well appearing, coughing intimately throughout examination but in no apparent respiratory distress--able to speak 5-6 word sentences without becoming short of breath.HEAD: Normocephalic; atraumatic.+ Tenderness to palpation over bilateral maxillary/frontal sinuses with overlying skin intact and no evidence for erythema, edema.EARS: Bilateral TMs without erythema or bulging. No hemotympanum. Canals clear bilaterally without lesions, exudate or edema. No tenderness to palpation over the auricle, tragus or mastoid area.EYES: PERRLA. EOM intact. No scleral icterus or injection.NOSE: The nose is normal in appearance with _+rhinorrhea.ORAL: Posterior pharynx and bilateral tonsils with +erythema/ edema. No exudate. Uvula midline without sign of oral pharyngeal abscess. Airway patent without drooling, stridor or trismus. No sublingual swelling.NECK: + Bilateral anterior cervical lymphadenopathy. Neck supple without nuchal rigidity.RESP: Normal chest excursion with respiration; breath sounds clear and equal bilaterally; no wheezes, rhonchi, or ralesCARD: Regular rhythm, without murmurs, rub or gallop. ABD: Diffusely nontender to palpation over entire abdomen Bowel sounds normal and present in all 4 quadrants. Non-distended; non-tender, soft,without rigidity, rebound or guarding. No masses or organomegallySKIN: Normal for age and race; warm and dry; no apparent lesions or rashes.TESTING (inc. XR, iv, lab, ECG): Chest x-rayDuoNeb, Decadron, ibuprofen, Zofran Medical Decision Making I reviewed the nurse's notes.Chest x-ray with no acute cardiopulmonary disease or abnormalities. Patient feeling better following DuoNeb, Decadron, Tylenol and Zofran with no additional episodes of emesis throughout stay in the emergency department. Patient's vital signs have remained stable with O2 sats of 99% on room air, minimally elevated temperature 99.5, heart rate of 100 and rest for rate of 18 with patient sitting up in bed, nontoxic in appearance in no acute respiratory distress I do feel she is safe to be discharged home.I discussed with the patient that I do suspect her symptoms are probably due to sinusitis secondary to recent upper respiratory infection/bronchitis with possible strep pharyngitis as she did have a recent exposure with erythematous tonsils, sore throat, fever, cervical lymphadenopathy and, I will treat her for acute sinusitis which will cover for strep pharyngitis with oral amoxicillin to go home with. I will also treat her with Mucinex D, Afrin nasal spray, ibuprofen, cough suppressant, Tessalon Perles, Zofran and albuterol inhaler to treat symptoms of upper respiratory symptoms/cough/bronchitis. Patient will be given a work note for today and tomorrow and she will be instructed to rest and drink any fluids and to return to the ER immediately for change or worsening of symptoms especially accompanied by fevers or than 101, coughing up blood, nausea with vomiting, bloody or black stools or any symptoms that appear to be significantly worsening instead of improving. Patient is okay with this plan and ready for discharge.Chest x-ray indicates: FINDINGS: The heart and mediastinum are not enlarged. Vasculature is not increased. No acute consolidation, effusion or pneumothorax is identified.IMPRESSION: No acute cardiopulmonary disease identified. Procedure Reexamination/ Reevaluation Impression and Plan DIAGNOSIS:Sinusitis, acutePharyngitis, likely strepUpper respiratory infectionCoughBronchitis Plan Condition: Improved, Stable. Disposition: Discharged: to home. Prescriptions: Med Rec/RX Pharmacy:Zofran ODT 4 mg oral tablet, disintegrating (Prescribe): 1 Tab, PO, Q5h, for 2 Day(s), PRN: as needed for nausea/vomiting, 10 Tab, 0 Refill(s)albuterol HFA 90 mcg/inh inhalation aerosol (Prescribe): 2 Puff, Inhalation, QID, 1 inhaler, 0 Refill(s)Tessalon 200 mg oral capsule (Prescribe): 1 Cap, PO, TID, for 5 Day(s), 15 Cap, 0 Refill(s)NyQuil Cough oral liquid (Prescribe): See Instructions, Take as instructed on bottle, 1 Bottle, 0 Refill(s)Afrin Saline nasal spray (Prescribe): See Instructions, 2 sprays each nostril twice daily. Do not use for more than 4 days in a row., 1 Bottle, 0 Refill(s)ibuprofen 600 mg oral tablet (Prescribe): 1 Tab, PO, QID, for 7 Day(s), PRN: as needed for pain, 28 Tab, 0 Refill(s)Mucinex D Max Strength oral tablet, extended release (Prescribe): 1 Tab, PO, Q12h, for 7 Day(s), 14 Tab, 0 Refill(s)amoxicillin 875 mg oral tablet (Prescribe): 1 Tab, PO, BID, for 14 Day(s), 28 Tab, 0 Refill(s). Patient was given the following educational materials: Sinusitis, Adult, Strep Throat, Pharyngitis, Acute Bronchitis, Upper Respiratory Infection, Adult, [employer] work release. ([id number]). Follow up with: ; [facility] ([facility]) Within Follow-up as needed This is a primary care provider. Please follow-up with for further evaluation/management of symptoms.; Return to Emergency Department Within Follow-up as needed Return to the ER immediately for change or worsening of symptoms especially accompanied by fevers greater than 101, chest pain, shortness of breath, coughing up blood, nausea with vomiting and not being able to keep medications down or any symptoms that appear to be significantly worsening instead of improving.. Basic Information Patient information:: Chief Complaint from Nursing Triage Note : Chief Complaint-Triage 10/10/2017 13:23 EDT Chief Complaint-Triage Fever, Cough/ST, Congestion . Normal [facility] ED Physician Notes PDF Normal [facility] XR Chest 2 Viewson 8 XR Chest 2 views STUDY: Chest two vie ws dated 10/10/2017 1:59 PM.COMPARISON: None.HISTORY: Cough. Fever. 3 days of symptoms. Back pain. Smoking history.FINDINGS: The heart and mediastinum are not enlarged. Vasculature is not increased. No acute consolidation, effusion or pneumothorax is identified.IMPRESSION: No acute cardiopulmonary disease identified. Immediate final results were provided per protocol.[place] thanks you for the opportunity to care for your patient. Workstation ID: [id number] - [id number] FINAL REPORT Dictated By: Marcos Dueñas MD 10/10/2017 14:01Assigned Physician: Marcos Dueñas MDReviewed and Electronically Signed By: Marcos Dueñas MD 10/10/2017 14:01Transcribed by: HELEN 10/10/2017 14:01Technologist: [facility] Normal [facility] BMPon 05-07-2017 Anion gap 3 molar conc 14 mmol/L Invalid Interpretation Code 10 - 20 mmol/L [facility] Calcium mass conc 9.0 mg/dL Invalid Interpretation Code 8.4 - 10.2 mg/dL [facility] Chloride molar conc 102 mmol/L Invalid Interpretation Code 98 - 108 mmol/L [facility] Creatinine mass conc 0.52 mg/dL Invalid Interpretation Code 0.4 - 1.1 mg/dL [facility] GFR/1.73 sq M predicted among non-blacks MDRD vol rate/area (S/P/Bld) The eGFR should be used for monitoring renal function only and not for medication dosing. Invalid Interpretation Code [facility] GFR/1.73 sq M.predicted CKD-EPI vol rate/area (S/P/Bld) 137 mL/min/1.73 m2 Invalid Interpretation Code >=60 [facility] Glucose mass conc 88 mg/dL Invalid Interpretation Code 65 - 99 mg/dL [facility] HCO3 molar conc 27 mmol/L Invalid Interpretation Code 21 - 32 mmol/L [facility] Potassium molar conc 3.7 mmol/L Invalid Interpretation Code 3.5 - 5.1 mmol/L [facility] Sodium molar conc 139 mmol/L Invalid Interpretation Code 135 - 145 mmol/L [facility] Urea nitrogen mass conc 13 mg/dL Invalid Interpretation Code 8 - 25 mg/dL [facility] Urea nitrogen/Creatinine mass ratio 25.0 mg/mg High 10.0 - 20.0 [facility] CBC Auto Differentialon 04-19 Basophils Auto #/vol (Bld) 0.02 K/mcL Invalid Interpretation Code 0.00 - 0.30 [facility] Basophils/100 WBC Auto (Bld) 0.3 % Invalid Interpretation Code [facility] Eosinophils Auto #/vol (Bld) 0.06 K/mcL Invalid Interpretation Code 0.00 - 0.50 [facility] Eosinophils/100 WBC Auto (Bld) 0.8 % Invalid Interpretation Code [facility] Erythrocyte distribution width Auto Entitic volume (RBC) 18.4 % High 11.6 - 14.8 % [facility] Hematocrit Auto Volume Fraction (Bld) 36.9 % Invalid Interpretation Code 36 - 46 % [facility] Hemoglobin mass conc (Bld) 11.4 g/dL Low 12 - 16 g/dL [facility] Immature granulocytes #/vol (Bld) 0.02 K/mcL Invalid Interpretation Code 0.00 - 0.30 [facility] Immature granulocytes/100 WBC (Bld) 0.30 % Invalid Interpretation Code [facility] Comment on above: The IG parameter is the percentage of metamyelocytes, myelocytes, and promyelocytes. Lymphocytes Auto #/vol (Bld) 2.18 K/mcL Invalid Interpretation Code 0.90 - 4.00 [facility] Lymphocytes/100 WBC Auto (Bld) 28.3 % Invalid Interpretation Code [facility] Auto Entitic mass (RBC) 24.6 pg Low 26 - 34 pg [facility] Auto mass conc (RBC) 30.9 g/dL Low 31 - 37 g/dL [facility]CV Auto Entitic volume (RBC) 79.7 fL Low 80 - 100 fL [facility] Monocytes Auto #/vol (Bld) 0.56 K/mcL Invalid Interpretation Code 0.30 - 0.90 [facility] Monocytes/100 WBC Auto (Bld) 7.3 % Invalid Interpretation Code [facility] Neutrophils Auto #/vol (Bld) 4.85 K/mcL Invalid Interpretation Code 1.70 - 7.00 [facility] Neutrophils/100 WBC Auto (Bld) 63.0 % Invalid Interpretation Code [facility] Nucleated RBC #/vol (Bld) 0.00 K/mcL Invalid Interpretation Code 0.00 - 0.00 [facility] Nucleated RBC/100 WBC Ratio (Bld) 0.0 % Invalid Interpretation Code [facility] Platelet mean volume Auto Entitic volume (Bld) 11.3 fL Invalid Interpretation Code 9 - 15.5 fL [facility] Platelets Auto #/vol (Bld) 277 K/mcL Invalid Interpretation Code 150 - 400 [facility] RBC Auto #/vol (Bld) 4.63 M/mcL Invalid Interpretation Code 4.00 - 5.20 [facility] WBC Auto #/vol (Bld) 7.69 K/mcL Invalid Interpretation Code 4.50 - 11.00 [facility] CBC w/ Diffon 05-07-2017 CBC w/ Diff The following orders were created for panel order CBC w/ Diff. Procedure Abnormality Status --------- ------ CBC Auto Differential[[id number]] Abnormal Final result Please view results for these tests on the individual orders. Invalid Interpretation Code [facility] Work Phone: Gold Topon 05-07-2017 Extra Tube Hold for add-ons. Invalid Interpretation Code [facility] Comment on above: Auto resulted. [place] Drawon 05-07-2017 [place] Draw The following orders were created for panel order [place] Draw. Procedure Abnormality Status --------- ------ Gold Top[[id number]] Final result Light Blue Top[[id number]] Final result [place] Top[[id number]] Final result [place] Top[[id number]] Final result Please view results for these tests on the individual orders. Invalid Interpretation Code [facility] Work Phone: Urinalysison 05-07-2017 Bacteria Auto Ql (U) None Seen Invalid Interpretation Code None Seen /hpf [facility] Bilirubin Ql (U) Negative Invalid Interpretation Code Negative [facility] Clarity Refractometry automated Nom (U) Clear Invalid Interpretation Code Clear [facility] Color Auto Nom (U) Yellow Invalid Interpretation Code Colorless, Yellow [facility] Epithelial cells.squamous Auto #/area (Urine sed) <1 Invalid Interpretation Code 0 - 4 /hpf [facility] Glucose Automated test strip mass conc (U) Negative Invalid Interpretation Code Negative mg/dL [facility] Hemoglobin Automated test strip Ql (U) Negative Invalid Interpretation Code Negative [facility] Interpretation and review of laboratory results Abnormal Invalid Interpretation Code [facility] Ketones mass conc (U) Negative Invalid Interpretation Code Negative mg/dL [facility] Leukocyte esterase Automated test strip Ql (U) Negative Invalid Interpretation Code Negative [facility] Mucus Auto #/area (Urine sed) Few Abnormal None Seen, Rare /lpf [facility] Nitrite Automated test strip Ql (U) Negative Invalid Interpretation Code Negative [facility] pH Test strip (U) 6.0 [pH] Invalid Interpretation Code 5.0 - 7.0 [facility] Protein mass conc (U) 30 Abnormal Negative mg/dL [facility] Comment on above: False positive resul ts may occur in urines with large amounts of hemoglobin, pH greater than 8.0, contrast medium, or disinfectants including ammonium compounds. Specific gravity Automated test strip Relative Density (U) 1.021 1 Invalid Interpretation Code 1.005 - 1.025 [facility] Urobilinogen Test strip Qn (U) <2.0 Invalid Interpretation Code <2.0 mg/dL [facility] WBC Auto #/area (Urine sed) 1 /hpf Invalid Interpretation Code 0 - 5 [facility] Urinalysis Microscopic examinat ion is performed on all urinalysis samples and only positive findings are reported. The test for blood on the chemical analytic portion of urinalysis may also be positive due to hemoglobinuria and myoglobinuria and if red blood cells are present they are quantified by microscopic examination. Invalid Interpretation Code [facility] Urine Pregnancyon 05-07-2017 HCG ( test) Ql (U) Negative Invalid Interpretation Code Negative [facility] Interpretation and review of laboratory results Normal Invalid Interpretation Code [facility] Vital Signs Date Time Vital Sign Value Performing Clinician Facility 12-27-2017 11:36-0400 BMI (Body Mass Index) 23.64 kg/m2 [facility] 12-27-2017 11:36-0400 Body Temperature 98.29 [degF] [facility] 12-27-2017 11:36-0400 BP Diastolic 83 mm[Hg] [facility] 12-27-2017 11:36-0400 BP Systolic 121 mm[Hg] [facility] 12-27-2017 11:36-0400 Height 162.6 cm [facility] 12-27-2017 11:36-0400 Pulse (Heart Rate) 84 /min [facility] 12-27-2017 11:36-0400 Pulse Oximetry 97 % [facility] 12-27-2017 11:36-0400 Respiratory Rate 12 /min [facility] 12-27-2017 11:36-0400 Weight 62.46 kg [facility] 05-08-2017 13:44-0400 BP Diastolic 71 mm[Hg] Solis Andres [facility] Work Phone: 05-08-2017 13:44-0400 BP Systolic 118 mm[Hg] Solis Andres [facility] Work Phone: 05-08-2017 13:44-0400 Pulse (Heart Rate) 68 /min [facility] 05-08-2017 13:44-0400 Pulse [facility]ximetry 99 % [facility] 05-08-2017 13:44-0400 Respiratory Rate 18 /min [facility] 05-08-2017 10:49-0400 BMI (Body Mass Index) 23.17 kg/m2 Solis French [employer] Work Phone: 05-08-2017 10:49-0400 Body Temperature 98.29 [degF] Solis French [employer] Work Phone: 05-08-2017 10:49-0400 Height 162.6 cm [facility] Work [facility]: 05-08-2017 10:49-0400 Weight 61.24 kg [facility] Work [facility]: 05-07-2017 19:00-0400 BP Diastolic 62 mm[Hg] Henri Pulliam [facility] Work Phone: 05-07-2017 19:00-0400 BP Systolic 108 mm[Hg] [facility] Work Phone: 05-07-2017 19:00-0400 Pulse (Heart Rate) 63 /min Henri Pulliam [facility] Work Phone: 05-07-2017 19:00-0400 Respiratory Rate 16 /min Henri Pulliam [employer] Work Phone: 05-07-2017 16:14-0400 BMI (Body Mass Index) 22.86 kg/m2 Henri Pulliam [employer] Work Phone: 05-07-2017 16:14-0400 Body Temperature 98.8 [degF] Henri Pulliam [facility] Work Phone: 05-07-2017 16:14-0400 Height 162.6 cm Henri Pulliam [facility] Work Phone: 05-07-2017 16:140400 Pulse Oximetry 100 % Henri Pulliam [facility] Work Phone: 05-07-2017 16:14040 Weight 60.42 kg Henri Pulliam [facility] Work Phone: Encounters Encounter Date Encounter Type Care Provider Facility Start: 07-09-2021 End: 07-12-2021 ambulatory DARY BLACK [facility] Start: 12-27-2017 End: 12-27-2017 Ambulatory ROXANE PAIGEUC [facility] Start: 12-27-2017 End: 12-27-2017 Office/outpatient visit, est, level 3 Mari Ham Work Phone: [facility] Start: 11-21-2017 End: 11-21-2017 Emergency department patient visit No PCP Physician Facility:[facility] Start: 10-10-2017 End: 10-10-2017 Emergency department patient visit No PCP Physician Facility:[facility] Start: 05-08-2017 End: 05-08-2017 [facility] Start: 05-08-2017 End: 05-08-2017 Emergency department patient visit Solis French Work Phone: [facility] Emergency Department Comment on above: Trapezius muscle spa sm (Primary Dx) Start: 05-07-2017 End: 05-07-2017 Emergency department patient visit HENRI PULLIAM [facility] Start: 05-07-2017 End: 05-07-2017 Emergency department patient visit Henri Pulliam Work Phone: [facility] Emergency Department Comment on above: Nonintractable heada cheryle, unspecified chronicity pattern, unspecified headache type (Primary Dx) Plan of Treatment Date Care Activity Detail Author Start: 03-20-2018 Influenza vaccination SEQUENTIAL INFLUENZA VACCINE (Season Ended) [facility] Start: 03-20-2017 Influenza vaccination SEQUENTIAL INFLUENZA VACCINE (#1) [facility] Work Phone: Start: 2007 Vaccination for human papillomavirus HPV VACCINES (1 of 3 - Female 3 Dose Series) [facility] Work Phone: Start: 1996 Adult depression screening assessment DEPRESSION SCREENING (PHQ9) [facility] Start: 1996 Screening for malignant neoplasm of cervix PAP SMEAR [facility] Work Phone: Start: 1996 SUBSTANCE ABUSE SCREENING (AUDIT-C) SUBSTANCE ABUSE SCREENING (AUDIT-C) [facility] Start: 1996 Tetanus vaccination TETANUS EVERY 10 YR [facility] Work Phone: Streptococcus pyogen es [Presence] in Throat by Organism specific culture Strep A Culture, Throat Routine Sore throat Ordered: 12/27/2017 [facility] Immunizations Immunization Date Immunization Notes Care Provider Mateo francisco 05-08-2016 influenza, seasonal, injectable Henri Pulliam [facility] Work Phone: Payers Date Payer Category Payer Unknown [id number] 2017 Unknown [id number] 2016 Unknown Social History Date Type Detail Facility Start: 12-27-2017 Tobacco smoking stat [facility] Current every day smoker [facility] History of tobacco use Cigarette Smoker [facility] Work Phone: Start: 12-27-2017 Cigarettes smoked current (pack per day) - Reported [facility] Sex Assigned At Not on file [facility] Work Phone: Start: 05-07-2017 End: 05-08-2017 Tobacco smoking status OHIS Former smoker [facility] Work Phone: Instructions * Patient Instructions - Mari Ham CNP - 12/27/2017 12:03 PM EDT Formatting of this note may be different from the original. Take medication as discussed. Follow up with PCP or UC if symptoms worsen of fail to improve in 48-72 hours. Follow up with your specialist. Sore Throat: Care Instructions Your Care Instructions Infection by bacteria or a virus causes most sore throats. Cigarette smoke, dry air, air pollution,allergies, and yelling can also cause a sore throat. Sore throats can be painful and annoying. Fortunately, most sore throats go away on their own. If you have a bacterial infection, your doctor may prescribe antibiotics. Follow-up care is a [place] part of your treatment and safety. Be sure to make and go to all appointments, and call your doctor if you are having problems. It's also a good idea to know your test resultsand keep a list of the medicines you take. How can you care for yourself at home? If your doctor prescribed antibiotics, take them as directed. Do not stop taking them just because you feel better. You need to take the full course of antibiotics. Gargle with warm salt water once an hour to help reduce swelling and relieve discomfort. Use 1 teaspoon of salt mixed in 1 cup of warm water. Take an hlaw-uqd-hvexgmx pain medicine, such as acetaminophen (Tylenol), ibuprofen (Advil, Motrin),or naproxen (Aleve). Read and follow all instructions on the label. Be careful when taking lzgk-vbu-zkmvvzu cold or flu medicines and Tylenol at the same time. Many ofthese medicines have acetaminophen, which is Tylenol. Read the labels to make sure that you are nottaking more than the recommended dose. Too much acetaminophen (Tylenol) can be harmful. Drink plenty of fluids. Fluids may help soothe an irritated throat. Hot fluids, such as tea or soup, may help decrease throat pain. Use gtgy-fra-lnmvzpn throat lozenges to soothe pain. Regular cough drops or hard candy may also help. These should not be given to young children because of the risk of choking. Do not smoke or allow others to smoke around you. If you need help quitting, talk to your doctor about stop-smoking programs and medicines. These can increase your chances of quitting for good. Use a vaporizer or humidifier to add moisture to your bedroom. Follow the directions for cleaning the machine. When should you call for help? Call your doctor now or seek immediate medical care if: ? You have new or worse trouble swallowing. ? Your sore throat gets much worse on one side. ?Watch closely for changes in your health, and be sure to contact your doctor if you do not get better as expected. Where can you learn more? Log into your personal health record on [email or web address] and enter U420 in the Education box to learn more about Sore Throat: Care Instructions. Current as of: November 28, 2016 Content Version: 05.25 [email or web address] Care instructions adapted under license by your healthcare professional. If you have questions about a medical condition or this instruction, always ask your healthcare professional. [email or web address] disclaims any warranty or liability for your use of this information. Viral Infections: Care Instructions Your Care Instructions You don't feel well, but it's not clear what's causing it. You may have a viral infection. Viruses cause many illnesses, such as the common cold, influenza, fever, rashes, and the diarrhea, nausea, and vomiting that are often called stomach flu. You may wonder if antibiotic medicines could make you feel better. But antibiotics only treat infections caused by bacteria. They don't work on viruses. The good news is that viral infections usually aren't serious. Most will go away in a few days without medical treatment. In the meantime, there are a few things you can do to make yourself more comfortable. Follow-up care is a [place] part of your treatment and safety. Be sure to make and go to all appointments, and call your doctor if you are having problems. It's also a good idea to know your test resultsand keep a list of the medicines you take. How can you care for yourself at home? Get plenty of rest if you feel tired. Take an mwxw-sez-djddbvb pain medicine if needed, such as acetaminophen (Tylenol), ibuprofen (Advil, Motrin), or naproxen (Aleve). Read and follow all instructions on the label. Be careful when taking akga-ruy-xynfirj cold or flu medicines and Tylenol at the same time. Many ofthese medicines have acetaminophen, which is Tylenol. Read the labels to make sure that you are nottaking more than the recommended dose. Too much acetaminophen (Tylenol) can be harmful. Drink plenty of fluids, enough so that your urine is light yellow or clear like water. If you have kidney, heart, or liver disease and have to limit fluids, talk with your doctor before you increase the amount of fluids you drink. Stay home from work, school, and other public places while you have a fever. When should you call for help? Call 911 anytime you think you may need emergency care. For example, call if: ? You have severe trouble breathing. ? You passed out (lost consciousness). ?Call your doctor now or seek immediate medical care if: ? You seem to be getting much sicker. ? You have a new or higher fever. ? You have blood in your stools. ? You have new belly pain, or your pain gets worse. ? You have a new rash. ?Watch closely for changes in your health, and be sure to contact your doctor if: ? You start to get better and then get worse. ? You do not get better as expected. Where can you learn more? Log into your personal health record on https://[email or web address] and enter L906 in the Education box to learn more about Viral Infections: Care Instructions. Current as of: June 06, 2017 Content Version: .20057837-1577 [email or web address] Care instructions adapted under license by your healthcare professional. If you have questions about a medical condition or this instruction, always ask your healthcare professional. [email or web address] disclaims any warranty or liability for your use of this information. in this encounter Assessments Diagnosis Sore throat - Primary Acute pharyngitis Viral syndrome Unspecified viral infection, in conditions classified elsewhere and of unspecified site Diagnosis Nonintractable headache, uns pecified chronicity pattern, unspecified headache type - Primary Diagnosis Trapezius muscle spasm - Renetta nadia Summary Purpose Family History No Family History Records FoundNo Family History Records FoundNo Family History Records FoundNo Family History Records Found Advance Directives No Advanced Directives Records FoundNo Advanced Directives Records FoundNo Advanced Directives Records FoundNo Advanced Directives Records Found Discharge Instructions * Alyssa Tellez, DO - 05/07/2017 Headache: Care Instructions Your Care Instructions Headaches have many possible causes. Most headaches aren't a sign of a more serious problem, and they will get better on their own. Home treatment may help you feel better faster. The doctor has checked you carefully, but problems can develop later. If you notice any problems ornew symptoms, get medical treatment right away. Follow-up care is a [place] part of your treatment and safety. Be sure to make and go to all appointments, and call your doctor if you are having problems. It's also a good idea to know your test resultsand keep a list of the medicines you take. How can you care for yourself at home? Do not drive if you have taken a prescription pain medicine. Rest in a quiet, dark room until your headache is gone. Close your eyes and try to relax or go to sleep. Don't watch TV or read. Put a cold, moist cloth or cold pack on the painful area for 10 to 20 minutes at a time. Put a thincloth between the cold pack and your skin. Use a warm, moist towel or a heating pad set on low to relax tight shoulder and neck muscles. Have someone gently massage your neck and shoulders. Take pain medicines exactly as directed. If the doctor gave you a prescription medicine for pain, take it as prescribed. If you are not taking a prescription pain medicine, ask your doctor if you can take an uwau-ahz-skjojmj medicine. Be careful not to take pain medicine more often than the instructions allow, because you may get worse or more frequent headaches when the medicine wears off. Do not ignore new symptoms that occur with a headache, such as a fever, weakness or numbness, vision changes, or confusion. These may be signs of a more serious problem. To prevent headaches Keep a headache diary so you can figure out what triggers your headaches. Avoiding triggers may help you prevent headaches. Record when each headache began, how long it lasted, and what the pain was like (throbbing, aching, stabbing, or dull). Write down any other symptoms you had with the headache, such as nausea, flashing lights or dark spots, or sensitivity to bright light or loud noise. Note if the headache occurred near your period. List anything that might have triggered the headache, such as certain foods (chocolate, cheese, wine) or odors, smoke, bright light, stress, or lack of sleep. Find healthy ways to deal with stress. Headaches are most common during or right after stressful times. Take time to relax before and after you do something that has caused a headache in the past. Try to keep your muscles relaxed by keeping good posture. Check your jaw, face, neck, and shoulder muscles for tension, and try relaxing them. When sitting at a desk, change positions often, and stretch for 30 seconds each hour. Get plenty of sleep and exercise. Eat regularly and well. Long periods without food can trigger a headache. Treat yourself to a massage. Some people find that regular massages are very helpful in relieving tension. Limit caffeine by not drinking too much coffee, tea, or soda. But don't quit caffeine suddenly, because that can also give you headaches. Reduce eyestrain from computers by blinking frequently and looking away from the computer screen every so often. Make sure you have proper eyewear and that your monitor is set up properly, about an arm's length away. Seek help if you have depression or anxiety. Your headaches may be linked to these conditions. Treatment can both prevent headaches and help with symptoms of anxiety or depression. When should you call for help? Call 911 anytime you think you may need emergency care. For example, call if: You have signs of a stroke. These may include: Sudden numbness, paralysis, or weakness in your face, arm, or leg, especially on only one side of your body. Sudden vision changes. Sudden trouble speaking. Sudden confusion or trouble understanding simple statements. Sudden problems with walking or balance. A sudden, severe headache that is different from past headaches. Call your doctor now or seek immediate medical care if: You have a new or worse headache. Your headache gets much worse. Where can you learn more? Log into your personal health record on [email or web address] and enter M271 in the Education box to learn more about Headache: Care Instructions. Current as of: May 02, 2016 Content Version: 11.2 1445-3223 [email or web address] Care instructions adapted under license by your healthcare professional. If you have questions about a medical condition or this instruction, always ask your healthcare professional. [email or web address] disclaims any warranty or liability for your use of this information. in this encounter Additional Source Comments INFORMATION SOURCE (unrecogn ized section and content) DATE CREATED AUTHOR 01/05/2018 [facility] DATE CREATED AUTHOR AUTHOR'S ORGANIZ ATION 01/12/2018 [facility] DATE CREATED AUTHOR AUTHOR'S ORGANIZ ATION 02/02/2018 [facility] DATE CREATED AUTHOR AUTHOR'S ORGANIZ ATION 07/12/2021 [facility] Reason for Visit (unrecogniz ed section and content) Reason Comments Migraine Reason Comments Neck Pain ED Attestation Note - Henri Pulliam MD - 05/07/2017 5:36 PM EDTED Provider Notes - Alyssa Tellez, DO - 05/07/2017 5:16 PM EDTED Notes - Javid Summers, RN - 05/07/2017 4:58 PM EDT Miscellaneous Notes (unrecog nized section and content) Formatting of this note may be different from the original. I personally interviewed the patient. I personally examined the patient. 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 I agree with the SOLUTIONS EXECUTIVE SECURITY/PA treatment plan. I agree with the SOLUTIONS EXECUTIVE SECUR[employer]/PA plan of care. I agree with the SOL[employer] EXEC[employer]IVE [employer]UR[employer]/PA dispo as documented. The patient has been informed that they may have pre-hypertension or hypertension based on a blood pressure reading in the Emergency Department. I recommend that the patient call the primary care provider listed on their discharge instructions or a physician of their choice as soon as possible to arrange follow-up in the next 4 weeks for further evaluation of possible pre-hypertension or hypertension. . Laboratory Results Labs Reviewed BASIC METABOLIC PANEL - Abnormal; Notable for the following: Result Value BUN/Creatinine Ratio 25.0 (*) All other components within normal limits Narrative: The eGFR should be used for monitoring renal function only and not for medication dosing. URINALYSIS - Abnormal; Notable for the following: Protein, Urine 30 (*) Mucus, Urine Few (*) All other components within normal limits Narrative: Microscopic examination is performed on all urinalysis samples and only positive findings are reported. The test for blood on the chemical analytic portion of urinalysis may also be positive due to hemoglobinuria and myoglobinuria and if red blood cells are present they are quantified by microscopic examination. CBC WITH AUTO DIFFERENTIAL - Abnormal; Notable for the following: Hemoglobin 11.4 (*) MCV 79.7 (*) MCH 24.6 (*) MCHC 30.9 (*) RDW - CV 18.4 (*) All other components within normal limits HCG URINE, QUALITATIVE - Normal CBC AND DIFFERENTIAL Narrative: The following orders were created for panel order CBC w/ Diff. Procedure Abnormality Status --------- ------ CBC Auto Differential[[id number]] Abnormal Final result Please view results for these tests on the individual orders. RAINBOW DRAW Narrative: The following orders were created for panel order [place] Draw. Procedure Abnormality Status --------- ------ Gold Top[[id number]] In process Light Blue Top[[id number]] In process [place] Top[[id number]] In process [place] Top[[id number]] In process Please view results for these tests on the individual orders. GOLD TOP LIGHT BLUE TOP WRIGHT TOP PINK TOP Imaging Results No orders to display No respiratory distress. No acute change in mental status. Typical migraine though she has had one in a year. She had been doing some acupuncture which had been helpful for her. This feels similar to previous migraines in the past. No fever or rash. She is concerned with these ongoing symptoms and arrives today in the emergency department for treatment. Patient's migraine significantly improved. Formatting of this note may be different from the original. [facility] ED Resident Note: NAME: Jodi Boston 22 y.o. CSN: [id number] PCP: Roxane Beasley DO History: Chief Complaint: Migraine HPI: The history was obtained from the patient. Jodi is a 22 y.o. female who presents with a chief complaint of Migraine. HPI 22-year-old female with history of anemia, chronic neck pain and migraines presents to the ER with chief complaint of headache and neck pain. Patient developed the symptoms a couple of days ago. Patient took a dose of her Toradol and the started without significant improvement in her symptoms. Patient denies any injuries to her neck. Headache feels very similar to her typical migraines. She does admit to some photophobia. She denies any fevers, vision changes, extremity numbness, tingling or weakness, chest pain or shortness of breath. Patient does admit to an episode of nausea and vomiting today. Her emesis was nonbloody and nonbilious. She denies any abdominal pain. Patient does also have IBS and so her stools are irregular and changing, but it has been normal for her. 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 Hx: Family History Problem Relation Age of Onset Migraines Mother Thyroid disease Mother Stroke Maternal Aunt Migraines Maternal Aunt Migraines Maternal Grandmother Ovarian cysts Maternal Grandmother 12 lb cyst Thyroid disease Maternal Grandmother Diabetes Maternal Grandmother type 2 Stroke Maternal Grandfather Migraines Maternal Grandfather Skin cancer Paternal Grandmother Stroke Maternal Aunt Migraines Maternal Aunt Other Cousin maternal female cousin with lymphatic malformation SOC. 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 ETONOGESTREL (NEXPLANON) 68 MG IMPL SUBDERMAL IMPLANT by Subdermal route once. OMEPRAZOLE (PRILOSEC) 20 MG CAPSULE TK ONE C PO QD ALL: No Known Allergies ROS: Review of Systems Positives and pertinent negatives as per HPI. All other systems were reviewed and are negative. Physical Exam: Patient Vitals for the past 24 hrs: BP Temp Temp src Pulse Resp SpO2 Height Weight 05/07/17 1614 125/82 98.8 F (37.1 C) Oral 94 16 100 % 5' 4 60.4 kg (133 lb 3.2 oz) Physical Exam Constitutional: She is oriented to person, place, and time. She appears well-developed and well-nourished. No distress. HENT: Head: Normocephalic and atraumatic. Right Ear: External ear normal. Left Ear: External ear normal. Eyes: EOM are normal. Pupils are equal, round, and reactive to light. Neck: Normal range of motion. Neck supple. Cardiovascular: Normal rate, regular rhythm and normal heart sounds. Pulmonary/Chest: Effort normal and breath sounds normal. No respiratory distress. She has no wheezes. Abdominal: Soft. Bowel sounds are normal. She exhibits no distension. There is no tenderness. Musculoskeletal: She exhibits no edema. Neurological: She is alert and oriented to person, place, and time. She has normal strength and normal reflexes. No cranial nerve deficit or sensory deficit. Skin: Skin is warm and dry. Capillary refill takes less than 3 seconds. She is not diaphoretic. Psychiatric: She has a normal mood and affect. Her behavior is normal. Nursing note and vitals reviewed. Laboratory & Radiological Imaging (if done): Labs Reviewed BASIC METABOLIC PANEL - Abnormal; Notable for the following: Result Value BUN/Creatinine Ratio 25.0 (*) All other components within normal limits Narrative: The eGFR should be used for monitoring renal function only and not for medication dosing. URINALYSIS - Abnormal; Notable for the following: Protein, Urine 30 (*) Mucus, Urine Few (*) All other components within normal limits Narrative: Microscopic examination is performed on all urinalysis samples and only positive findings are reported. The test for blood on the chemical analytic portion of urinalysis may also be positive due to hemoglobinuria and myoglobinuria and if red blood cells are present they are quantified by microscopic examination. CBC WITH AUTO DIFFERENTIAL - Abnormal; Notable for the following: Hemoglobin 11.4 (*) MCV 79.7 (*) MCH 24.6 (*) MCHC 30.9 (*) RDW - CV 18.4 (*) All other components within normal limits HCG URINE, QUALITATIVE - Normal CBC AND DIFFERENTIAL Narrative: The following orders were created for panel order CBC w/ Diff. Procedure Abnormality Status --------- ------ CBC Auto Differential[[id number]] Abnormal Final result Please view results for these tests on the individual orders. RAINBOW DRAW Narrative: The following orders were created for panel order [place] Draw. Procedure Abnormality Status --------- ------ Gold Top[[id number]] In process Light Blue Top[[id number]] In process Wright Top[[id number]] In process [place] Top[[id number]] In process Please view results for these tests on the individual orders. GOLD TOP LIGHT BLUE TOP WRIGHT TOP PINK TOP No orders to display Procedures: Procedures ED Course / Medical Decision Makin-year-old female presents to the ER with complaints of headache and neck pain. On exam patient is in no acute distress. All her vital signs are stable. Her physical exam reveals no signs of meningismus. She has no focal neurological deficits. Patient had routine labs and urine studies ordered from triage which were all within normal limits. Patient was given IV fluids, Reglan, Benadryl and Toradol and had complete relief of her symptoms. On reevaluation the patient was asymptomatic and requesting to go home. Patient will follow up with her family doctor as needed for her migraines and chronic neck pain. Return precautions were discussed with her for any new or worsening symptoms that she should come back to the ER for reevaluation of these develop. Patient understands and agrees and was discharged home in stable condition. Jodi Boston's case was discussed with my attending physician who agrees with his ED management and final disposition. They independently evaluated the patient. Please refer to their attestation to this encounter for additional information. Medications sodium chloride (PF) (NS) 0.9 % flush 5 mL (not administered) sodium chloride 0.9% (NS) bolus 1,000 mL (0 mL Intravenous Stopped 05/07/171839) ketorolac (TORADOL) injection 15 mg (15 mg Intravenous Given 05/07/171728) metoclopramide (REGLAN) injection 10 mg (10 mg Intravenous Given 05/07/171728) diphenhydrAMINE (BENADRYL) injection 25 mg (25 mg Intravenous Given 05/07/171728) This note was generated by Hall voice recognition software and as a result grammatical or spelling errors may occur using this program. Clinical Impression: SNOMED CT(R) 1. Nonintractable headache, unspecified chronicity pattern, unspecified headache type HEADACHE Disposition: Patient is being discharged to home New Prescriptions No medications on file Alyssa Tellez DO ED Resident Physician [facility] Emergency Department (Please note that portions of this note have been completed with a voice recognition software. Efforts were made to correct any errors, but occasionally words are mis-transcribed.) Alyssa Tellez DO Resident 05/07/171851 SECONDARY ASSESSMENT - Breathing regular and unlabored, lungs CTA, heart murmur and regular, skin warm and dry. Abdomen flat, soft, and non-tender, with active BSx4. MOEx4, BUE push/pull equal and strong 5/5 BLE push/pull equal and strong 5/5. Side rails x2 for safety, call light within reach, visitors cartside. PRIMARY ASSESSMENT - Airway: patent Breathing: spontaneous with chest wall movement. Circulation: Skin warm and dry, CONTACT CENTER SPECIALIST < 3 seconds, 2+ Bilateral radial pulses. AVPU: alert. Pt relates migraine and head tingling that started on Thursday. Pt also relates decrease in her far sighted vision. Pt relates her Toradol helped initially but now it has worn off. Pt relates changing her mattress recently. Pt c/o loss of appetite as well. Pt relates light and sound make her migraine worse. Pt states she has had migraine x 5 days and has been taking toradol at home for it. Pt took an oxycodone today, but vomited it up. Pt states her head is tingling and she has increasingly worse neck pain. Pt denies recent injury.in this encounter This RN to the room to provide pt with DC/church administrator/care instructions. Pt verbalizes understanding with no further concerns at this time. This RN to the room to provide pt with Ice to apply to the back of her neck for comfort measures. Formatting of this note may be different from the original. PCP - Roxane Beasley DO Chief Complaint Patient presents with Neck Pain HPI 22-year-old female with past history of chronic neck pain, migraine headaches presents to ED with posterior neck pain radiating to bilateral shoulders 7 hours. Patient states that she had pain the location yesterday along with a migraine headache which was subsequently treated in the ED. Vision at home last night without any pain woke up this morning with the return of the neck pain. States her pain is worse with any active range of motion. Denies any other associated symptoms including headache. Denies using any medications this morning to treat her symptoms. She denies fever, chills, lightheadedness, dizziness, changes in vision, photophobia, phonophobia, dysphagia, odynophagia, sinus pressure, nasal discharge, sore throat, anterior neck pain, shortness of breath, coughing, wheezing, chest pain, palpitations, abdominal pain, nausea, vomiting, diarrhea, joint pains, muscle aches or rashes. Denies trauma. Denies sick contacts or recent travel. Review of Systems Constitutional: No recent unexplained weight loss Skin: No rash Eyes: No scleral icterus ENMT: No voice changes Genitourinary: no obstructive symptoms Endocrine: no polyuria Neurologic: no speech difficulties Psychiatric: No Behavior Problems Hematologic/Lymphatic: No abnormal bruising Allergic/Immunologic: no urticaria Other pertinent positives and negatives in HPI Previous Records Reviewed Past Medical History Past Medical History: Diagnosis Date Anemia Anemia Gastritis Migraines Past Surgical History Past Surgical History: Procedure Laterality Date Mixing Tumbler Operator WISDOM TOOTH EXTRACTION Family History Family History Problem Relation Age of Onset Migraines Mother Thyroid disease Mother Stroke Maternal Aunt Migraines Maternal Aunt Migraines Maternal Grandmother Ovarian cysts Maternal Grandmother 12 lb cyst Thyroid disease Maternal Grandmother Diabetes Maternal Grandmother type 2 Stroke Maternal Grandfather Migraines Maternal Grandfather Skin cancer Paternal Grandmother Stroke Maternal Aunt Migraines Maternal Aunt Other Cousin maternal female cousin with lymphatic malformation Social History Social History Social History Marital status: Spouse name: N/A Number of children: N/A Years of education: N/A 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 Social History Main Topics Smoking status: Former Smoker Packs/day: 0.00 Types: Cigarettes Smokeless tobacco: Not on file Alcohol use No Drug use: Yes Special: Marijuana Sexual activity: Yes Partners: Male control/ protection: Implant Other Topics Concern Not on file Social History Narrative Allergies No Known Allergies Medications Jodi Boston Home Medication Instructions Prior to Surgery MAYURI:[id number] Printed on:05/08/17 6981 Medication Information Take last dose on Take the morning of surgery Comment(s) EPINEPHrine (EPIPEN) 0.3 mg/0.3 mL AtIn Inject 0.3 mg into the shoulder, thigh, or buttocks once. etonogestrel (NEXPLANON) 68 mg Impl subdermal implant by Subdermal route once. omeprazole (PRILOSEC) 20 MG capsule TK ONE C PO QD tiZANidine (ZANAFLEX) 4 MG capsule Take 1 (one) capsule (4 mg total) by mouth 3 (three) times a day as needed for muscle spasms. Physical Exam Initial Vital Signs BP 123/77 (BP Location: Right arm, Patient Position: Lying) Pulse 71 Temp 98.3 F (36.8 C) (Oral) Resp 16 Ht 5' 4 Wt 61.2 kg (135 lb) SpO2 100% BMI 23.17 kg/m2 Vital Signs During ED Visit (as charted by nursing) Patient Vitals for the past 24 hrs: BP Temp Temp src Pulse Resp SpO2 Height Weight 05/08/17 1239 123/77 - - 71 16 100 % - - 05/08/17 1049 132/74 98.3 F (36.8 C) Oral 95 12 100 % 5' 4 61.2 kg (135 lb) Physical Exam Constitutional: She is oriented to person, place, and time. She appears well-developed and well-nourished. No distress. HENT: Head: Normocephalic and atraumatic. Head is without raccoon's eyes, without Lopez's sign, without abrasion, without contusion, without laceration, without right periorbital erythema and without left periorbital erythema. Hair is normal. Right Ear: Tympanic membrane, external ear and ear canal normal. Left Ear: Tympanic membrane, external ear and ear canal normal. Nose: Nose normal. No rhinorrhea. Right sinus exhibits no maxillary sinus tenderness and no frontal sinus tenderness. Left sinus exhibits no maxillary sinus tenderness and no frontal sinus tenderness. Mouth/Throat: Uvula is midline, oropharynx is clear and moist and mucous membranes are normal. Eyes: Conjunctivae and EOM are normal. Pupils are equal, round, and reactive to light. Right eye exhibits no discharge. Left eye exhibits no discharge. Neck: Trachea normal. Muscular tenderness present. No spinous process tenderness present. No rigidity. No tracheal deviation, no edema and no erythema present. No Kernig's sign noted. Cardiovascular: Normal rate, regular rhythm and normal heart sounds. Exam reveals no gallop and no friction rub. No murmur heard. Pulmonary/Chest: Effort normal and breath sounds normal. No stridor. No respiratory distress. She has no wheezes. She has no rales. She exhibits no tenderness. Abdominal: Soft. She exhibits no distension. There is no tenderness. There is no guarding. Musculoskeletal: Normal range of motion. Lymphadenopathy: She has no cervical adenopathy. Neurological: She is alert and oriented to person, place, and time. Skin: Skin is warm and dry. Capillary refill takes less than 3 seconds. No bruising, no ecchymosis, no petechiae and no rash noted. She is not diaphoretic. Psychiatric: She has a normal mood and affect. Her behavior is normal. Judgment and thought content normal. Nursing note and vitals reviewed. IMPRESSION/ ED COURSE 22-year-old female with past history of chronic neck pain, migraine headaches presents to ED with posterior neck pain radiating to bilateral shoulders 7 hours. Patient was successfully treated for the same symptoms yesterday in the ED. Patient denies using any medications at home since symptoms returned this morning. The exam is remarkable for tenderness palpation from base of occiput along the posterior lateral neck to bilateral insertion of shoulders. Exam suggestive of a trapezius muscle strain. Provide patient with Toradol and Zanaflex for symptomatically. Patient will be discharged home with reassurance there is no acute concerns regarding her symptoms today. Prior prescription for Zanaflex for as needed systematic relief recommend that she use her previous prescribed Toradol as needed. Patient to follow-up with her PCM next 1-2 days for further evaluation and management of her symptoms. She return to ED if her symptoms worsen or for any other acute questions or concerns. She states understanding and agrees with assessment and plan. The patient has been informed that they may have pre-hypertension or hypertension based on a blood pressure reading in the Emergency Department. I recommend that the patient call the primary care provider listed on their discharge instructions or a physician of their choice as soon as possible to arrange follow-up in the next 4 weeks for further evaluation of possible pre-hypertension or hypertension. . FINAL DIAGNOSIS SNOMED CT(R) 1. Trapezius muscle spasm MUSCLE SPASM OF CERVICAL MUSCLE OF NECK Labs Reviewed - No data to display Radiographic Imaging (if any) During ED Visit No orders to display Medications Ordered/Given During ED Visit Medications ketorolac (TORADOL) injection 60 mg (60 mg Intramuscular Not Given 05/08/17 1135) tiZANidine (ZANAFLEX) tablet 2 mg (2 mg Oral Given 05/08/17 1247) ketorolac (TORADOL) injection 30 mg (30 mg Intravenous Given 05/08/17 1150) Procedures Note: To expedite correspondence this note was generated by [employer] voice recognition software. All imaging has been read by a Radiologist. Eleno Thao PA-C 05/08/17 1315 Pt presents to the ED c/o of severe neck pain. Pt was tx at [facility] yesterday for migraine at which time her migraine was relieved and she went home to go to sleep but her neck was hurting so bad she was not able to have restful sleep. Her mobility is limited significantly she reports and states there is a tinglinging sensation at the top of my head again. It feels like goosebumps . Pt denies taking any meds at this time as she states something is really wrong with my neck so I think we should figure it out not throw meds at it . Pt is A&O, resps easy unlabored, in ED cart, lowest position, call light within reach no further concerns at this time. Pt ambulates with steady gait to ED room, no signs of distress at this time. Pt arrives with complaints of stiff neck with neck pain, relates was unable to sleep last night, pt was seen in ED at [facility] yesterday treated for migraine headache, denies headache at this timein this encounter FOR RECORDS PERTAINING TO PATIENTS WHO ARE OR HAVE BEEN ENROLLED IN A CHEMICAL DEPENDENCY/SUBSTANCEABUSE PROGRAM, SOME INFORMATION MAY BE OMITTED. This clinical summary was aggregated from multiple sources. Caution should be exercised in using it in the provision of clinical care. This summary normalizes information from multiple sources, and as a consequence, information in this document may materially change the coding, format and clinical context of patient data. In addition, data may be omitted in some cases. CLINICAL DECISIONS SHOULD BE BASED ON THE PRIMARY CLINICAL RECORDS. [employer] provides no warranty or guarantee of the accuracy or completeness of information in this document.
[2023-07-25 10:19] LABS: Basophils Percent Auto 0.3 % (0.2-2.0); Eosinophils Absolute Auto 0.1 10^3/uL (0.0-0.7); Eosinophils Percent Auto 0.8 % (0.9-7.0); Hematocrit 33.2 % (36.0-48.0); Hemoglobin 10.3 g/dL (12.0-16.0); Immature Granulocytes Abs Auto 0.04 10^3/uL (0.00-0.03); Immature Granulocytes Pct Auto 0.5 % (0.0-0.5); Lymphocytes Absolute Auto 1.4 10^3/uL (1.2-3.8); Lymphocytes Percent Auto 19.3 % (20.5-60.0); Mean Corpuscular Hemoglobin 27.9 pg (26.7-34.0); Monocytes Absolute Auto 0.4 10^3/uL (0.3-0.8); Monocytes Percent Auto 5.7 % (1.7-12.0); Neutrophils Absolute Auto 5.4 10^3/uL (1.4-6.5); Neutrophils Percent Auto 73.4 % (43.0-75.0); Platelet Count 210 10^3/uL (150-450); Red Blood Count 3.69 10^6/uL (4.20-5.40); Red Cell Distribution Width 12.6 % (11.0-15.0); White Blood Count 7.4 10^3/uL (4.0-11.0)
[2023-07-25 11:05] LABS: Glucose 1 Hour 120 mg/dL
== END 2023-07-25 09:11 | disposition home or self-care (01) ==
LOC: LAB 09:10
PROVIDERS: Visit Provider Obstetrics & Gynecology
DX: Z34.92 Encounter for supervision of normal pregnancy, unspecified, second trimester (principal)
CPT/HCPCS: 36415; 82950; 85025

== ENCOUNTER 2023-08-28 15:22 | Outpatient (OUT) | payer OTHER, SELFPAY ==
--- OUTSIDE RECORDS SUMMARY | 2023-08-28 15:31 | XMS_ITS | CCD ---
Author Name Unknown Address [address] [facility] [address] [place] [address] Organization [facility] Care Team Providers Care Float Builder Name Role Phone Ramos Roxane Sims Unavailable ROXANE BEASLEY Unavailable Unavail able MARI HAM [...] parts viscous lidocaine 2%, diphenhydramine 12.5mg/5mL, maalox [id number]-[id number]-33hs/5mL (1 source) Start: End: magic mouthwash susp equal parts viscous lidocaine 2%, diphenhydramine 12.5mg/5mL, maalox 302wc-101us-88bh/5mL Swish and spit 5 mL every 6 [...] Hamzah Kaba MD 07/09/21 Final result Normal [facility] POC Rapid Strep Aon 12-28-19 Interpretation and review of laboratory results Normal Invalid Interpretation Code [facility] Streptococcus pyogenes antigen presence Negative Invalid Interpretation Code Negative [facility] Basic Metabolic Panelon 05 Anion gap 8.0 mmol/L Normal 6.0-18.0 [facility] Comment on above: Result Comment: JOHNSON POLANCO NOTE:The calculated Anion Gap(AGAP) does not include Potassium. Performed By: #### 6 9405-9, 25736-0b9, 3040-3, 94447-1, 83635-1 ####[facility], [address] [place], [place]. Calcium 9.3 mg/dL Normal 8.9-10.3 [facility] Comment on above: Performed By: #### 6 9405-9, 00042-9g5, 3040-3, 61900-7, 61188- 3 ####[facility], [address] [place], [place]. Chloride 106 mmol/L Normal 98-107 [facility] Comment on above: Performed By: #### 6 9405-9, 71213-9e1, 3040-3, 15092-2, 37480- 3 ####[facility], [address] [place], [place]. CO2 25 mmol/L Normal 22-32 [facility] Comment on above: Performed By: #### 6 9405-9, 79611-9z8, 3040-3, 10337-9, 36763- 3 ####[facility], [address] [place], [place]. Creatinine 0.65 mg/dL Low 0.66-1.30 [facility] Comment on above: Performed By: #### 6 9405-9, 64497-0m6, 3040-3, 52153-0, 60694- 3 ####[facility], [address] [place], [place]. Glucose mass conc 88 mg/dL Normal 70-110 [facility] Comment on above: Performed By: #### 6 9405-9, 16168-7h0, 3040-3, 67353-0, 32023- 3 ####[facility], [address] [place], [place]. Potassium molar conc 3.5 mmol/L Low 3.6-5.1 [facility] Comment on above: Performed By: #### 6 9405-9, 27923-5z0, 3040-3, 93659-0, 57175- 3 ####[facility], [address] [place], [place]. Sodium 139 mmol/L Normal 136-145 [facility] Comment on above: Performed By: #### 6 9405-9, 02695-0k9, 3040-3, 04518-7, 05296- 3 ####[facility], [address] [place], [place]. Urea nitrogen mass conc (BldV) 10 mg/dL Normal 8-20 [facility] Comment on above: Performed By: #### 6 9405-9, 34670-0x7, 3040-3, 62964-4, 52664- 3 ####[facility], [address] [place], [place]. CBCon 11-21-2017 Erythrocyte distribution width Entitic volume (RBC) 20.1 % High 11.0-14.8 [facility] Comment on above: Performed By: #### 2 4317-0 ####[facility], [address] [place]. Erythrocytes (RBC) 4.57 million/mcL Normal 3.80-5.10 [facility] Comment on above: Performed By: #### 2 4317-0 ####[facility], [address] [place], [place]. Hematocrit (HCT) 34.8 % Low 35.0-45.0 [facility] Comment on above: Performed By: #### 2 4317-0 ####[facility], [address] [place]. Hemoglobin mass conc (Bld) 11.3 g/dL Low 12.0-16.0 [facility] Comment on above: Performed By: #### 2 4317-0 ####[facility], [address] [place], [place]. MCH 24.8 Picograms Low 27.0-34.[address] [facility] Comment on above: Performed By: #### 2 4317-0 ####[facility], [address] [place], [place]. MCHC mass conc (RBC) 32.6 g/dL Normal 32.0-36.0 [facility] Comment on above: Performed By: #### 2 4317-0 ####[facility], [address] [place], [place]. MCV 76.1 fL Low 80.0-97.0 [facility] Comment on above: Performed By: #### 2 4317-0 ####[facility], [address] [place]. Platelet mean volume Entitic volume (Bld) 8.9 FL Normal 6.2-12.1 [facility] Comment on above: Performed By: #### 2 4317-0 ####[facility], [address] [facility] [place]. Platelets 251 thou/mcL Normal 142-424 [facility] Comment on above: Performed By: #### 2 4317-0 ####[facility], [address], [place]. WBC (Leukocytes) 6.4 thou/mcL Normal 4.6-10.2 [facility] Comment on above: Performed By: #### 2 4317-0 ####[facility], [address]. CT Abd and Pelvis w Contrast [...] emergency department following dictation on 11/21/2017 3:41 AM.[place] thanks you for the opportunity to care for your patient. Workstation ID: [id number] FINAL REPORT Dictated By: Pérez Queen MD 11/21/2017 03:38Assigned Physician: Pérez Queen MDReviewed and Electronically Signed By: Pérez Queen MD 11/21/2017 03:42Transcribed by: HELEN 11/21/2017 03:38Technologist: YRIS Normal [facility] Culture Urine + Susceptibili tyon 11-21-2017 Urine culture, bacteria [facility] MicrobiologyPROCEDURE: Culture Urine + SusceptibilitySOURCE: Urine BODY SITE:COLLECTED DATE/TIME: 11/21/2017 01:41 EDT RECEIVED DATE/TIME: 11/21/2017 01:41 EDTSTART DATE/TIME: 11/21/2017 01:41 EDT FREE TEXT SOURCE: URINEINTERFACED REPORTSFinal Report []Verified Date/Time/Personnel: 11/22/2017 12:17 EDT CONTRIBUTOR_SYSTEM, CO_PNORGANISMS USUALLY ASSOCIATED WITH VAGINAL,URETHRAL,AND/OR SKIN CONTAMINATION PRESENT. Normal [facility] Comment on above: Performed By: #### 5 8077-9, 27777-1 ####[address]#### 630[address] ####[address] [place], [place] Depart Summaryon 11-21-2017 Depart Summary EMERGENCY DEPARTMENT DISCHARGE SUMMARYPATIENT NAME:JODI BOSTON MRN: -[id number]: 22 Years SEX: Female PHONE:[phone]: 11/20/2017 10:57 PM : 1995 ATTENDING PHYSICIAN:Ernestine Mckeon MD PCP: Physician, [place] PCP CHIEF COMPLAINT: abdominal pain Allergies Compazine (Anger)Problems Active No Chronic Problems DISCHARGE DIAGNOSIS: DISCHARGE INSTRUCTIONS: Work Release (CO-S) (CUSTOM); Abdominal Pain, Adult ED PHYSICIAN DOCUMENTATION: History of Present Eqhcpyx98-awwl-dbi female with no significant medical history presents [...] Result(s): Date Order Results 11/20/2017 23:06 Specific [place] Urine POCT N 1.030 11/20/2017 23:06 pH Urine POCT N 5 11/20/2017 23:06 Urobilinogen Urine POCT N 0 mg/dL 11/21/2017 01:41 Appearance Urine A TURBID 11/21/2017 01:41 Specific [place] Urine H 1.032 11/21/2017 01:41 Blood Urine [...] emergency department following dictation on 11/21/2017 3:41 AM.[place] thanks you for the opportunity to care [...] any generalized worsening of your condition. Normal [facility] ED Pat Eduon 11-21-2017 ED Pat [place] [address] [facility] Discharge Instructions JODI BOSTON , Please [...] Medicaciones de los Servicios de Emergencia Name TEJ JODI Luis MRN (COL)-[id number] PLEASE READ THE FOLLOWING REGARDING YOUR MEDICATIONS [...] doses are changed, or new medications (including msjx-emm-ihpvdxe products) are added. If you have any [...] Actualiza la lista cuando Ud. zaire de rcystal las medicaciones, si cambian las dosis, o [...] TAKE UNTIL YOU TALK TO YOUR DOCTORNone [place] [id number] Emergency Department Discharge Instructions Name: JODI BOSTON Current Date: 11/21/2017 03:50:01 : 1995 12:00 PM Primary Physician: Physician, No PCP We would like to thank you for choosing [facility] for your emergency medical needs. We examined [...] health of those around you. Call the [place] [employer] at 2-550-MMKH-USA or the [place] [employer] at 2-208-RTP-5861 for more information.High blood pressure: Your screening blood pressure today was 108 mm Hg / . Hypertension (high blood pressure) is blood pressure over 120/80. People with hypertension should contact their primary care provider within 30 days to follow up. Check your patient portal for additional blood pressure information.Immunizations:I mmunization is a way to protect against deadly infections. Discuss this with your child's equine vet, or Public Health Department. Your family practice doctor can determine if you need pneumonia or flu vaccine. [facility] Department can be reached at .Domestic Violence:If [...] suicide hotline, anytime day or night, at 2-695-924-CYGE. Pharmacy Information:Below is a list of 24 hour pharmacies that we are aware of. We suggest that you call the specific pharmacy for their hours before traveling to a location. Hours may vary on holidays. [facility] [address] [address] [phone] [address] [phone] [address] [phone] [address] [phone] [address] [phone] [address] [phone] [place] [address] [phone] Take all medications as directed. If you need prescription assistance, contact the following agencies:?? Partnership for Prescription Assistance at or www.pparx.org?? [facility] Best Rx at or www.MiQ Corporationbestrx.org?? www.[employer].Talkspace is a site with many valuable coupons [...] alleviate any discomfort you are experiencing:???Only take jrza-cjo-nhdrbdp or prescription medicines as directed by your [...] Document Reviewed: 03/15/2014[employer] Patient Education ?2016 [employer]><><><><><><><><><><>< ><><><><><><><><><><><>< ><> Patient Visit Summary JODI Jackson has been given the following list of patient education materials, prescriptions and follow-up instructions: TEJ Whitten MORGAN A, have received the above patient education materials/instructions and have verbalized understanding: Date Time Patient Signature Date Time Provider Signature Normal [facility] ED Physician Noteson 018 ED Physician [...] chronic problems Historical No qualifying dataProcedure/Surgical History [place] tooth.Medications Home No active home medications ED [...] department following dictation on 11/21/2017 3:41 AM. [place] thanks you for the opportunity to care [...] MD November 21, 2017 00:59 Completed Normal [facility] ED Physician Notes PDF Normal [facility] GFRaaon 11-21-2017 eGFR (black) mL/min/{1.73_m2} Normal [facility] Comment on above: Result Comment: The MDRD equation has not been validated for those over 70 years, women, patients with serious co-morbid conditions, or with extremes of bodysize, muscle mass of nutritional status. Performed By: #### 6 9405-9, 33411-9g5, 3040-3, 91971-1, 26558-9 ####[facility], [address] [place], [place]. GFRbbon 11-21-2017 eGFR (non-black) mL/min/{1.73_m2} Normal [facility] Comment on above: Performed By: #### 6 9405-9, 28664-9z8, 3040-3, 00271-1, 65542- 3 ####[facility]IMO [facility]QU[facility], [address] [place] [address]. Hepatic Function Panelon Alanine aminotransferase (ALT) 15 Units/L Normal 14-63 [facility] Comment on above: Performed By: #### 6 9405-9, 62997-9d3, 3040-3, 26681-1, 12763- 3 ####GERONIMO AUSTIN [facility], [address] [place], [place]. Albumin 4.2 g/dL Normal 3.5-4.8 [facility] Comment on above: Performed By: #### 6 9405-9, 19203-1y1, 3040-3, 06725-3, 32027- 3 ####GERONIMO AQUINO [facility], [address] [facility], [place], [place]. Alkaline phosphatase (ALP) 36 Units/L Normal 32-91 [facility] Comment on above: Performed By: #### 6 9405-9, 75076-8v7, 3040-3, 76625-7, 14736- 3 ####[facility], [address] [place], [place]. Aspartate aminotransferase (AST) 19 Units/L Normal 15-41 [facility] Comment on above: Performed By: #### 6 9405-9, 41538-5u0, 3040-3, 34347-1, 15033- 3 ####[facility], [address] [place], [place]. Bilirubin (direct) 0.1 mg/dL Normal 0.1-0.5 [facility] Comment on above: Performed By: #### 6 9405-9, 56359-1d3, 3040-3, 63724-6, 19449- 3 ####[facility], [address] [place], [place]. Bilirubin (total) 0.6 mg/dL Normal 0.3-1.2 [facility] Comment on above: Performed By: #### 6 9405-9, 39736-4r1, 3040-3, 87198-4, 57125- 3 ####[facility], [address] [place]. Bilirubin.indirect mass conc 0.5 mg/dL Normal 0.0-1.0 [facility] Comment on above: Performed By: #### 6 9405-9, 99246-9q3, 3040-3, 80791-9, 40729- 3 ####GERONIMO [facility], [address] [facility] [place], [place]. Protein 6.9 g/dL Normal 6.1-7.9 [facility] Comment on above: Performed By: #### 6 9405-9, 61680-4m2, 3040-3, 10678-2, 10100- 3 ####[facility], [address], [place]. Lipaseon 11-21-2017 Lipase 21 Units/L Low 22-51 [facility] Comment on above: Performed By: #### 6 9405-9, 74917-8q7, 3040-3, 65067-7, 83794- 3 ####[facility], [address], [place]. Urinalysis Microscopicon Urine, amorphous crystals presence in sediment FEW Abnormal NONE/HPF [facility] Comment on above: Performed By: #### 5 8077-9, 73648-0 ####[facility], [address] [facility] [address], [place].#### 630-4 ####[address] [place], [place] Urine, bacteria in sediment FEW Abnormal NONE/HPF [facility] Comment on above: Performed By: #### 5 8077-9, 41104-6 ####[facility], [address] [place] [address] AVE.[place], [place].#### 630-4 ####[address] [place], [place] Urine, erythrocytes in sediment by area 6 /[HPF] High 0-5 [facility] Comment on above: Performed By: #### 5 8077-9, 56002-1 ####[facility], [address] [place] [address] [place]VE.[place], [place].#### 630-4 ####[address] [place], [place] Urine, mucus presence in sediment MANY Abnormal NONE/LPF [facility] Comment on above: Performed By: #### 5 8077-9, 34009-8 ####[facility], [address] [place], [place] [address]E.[place], [place].#### 630-4 ####[address] [place], [place] Urine, squamous cells in sediment MANY Abnormal FEW/LPF [facility] Comment on above: Performed By: #### 5 8077-9, 33789-1 ####[facility], [address] [facility] [address], [place].#### 630-4 ####[address] [place], [place] WBC Urine 6 /hpf High 0-5 [facility] Comment on above: Performed By: #### 5 8077-9, 80889-7 ####[facility], [address], [place].#### 630-4 ####[address] [place], [place] Urinalysis with Microscopic Automatic with Reflexon 11-21-2017 Bilirubin Test strip mass conc (U) Negative Normal NEGATIVE [facility] Comment on above: Performed By: #### 5 8077-9, 31096-3 ####[facility], [address], [place].#### 630-4 ####[address] [place], [place] Glucose Test strip mass conc (U) NORMAL Normal NORMAL [facility] Comment on above: Performed By: #### 5 8077-9, 28740-8 ####[facility], [facility].#### 630-4 ####[address] Ketones Test strip mass conc (U) 80MG/DL Abnormal NEGATIVE [facility] Comment on above: Performed By: #### 5 8077-9, 00052-1 ####[facility], [facility] [address] [facility], [place].#### 630-4 ####[address] Nitrite Test strip mass conc (U) Negative Normal NEGATIVE [facility] Comment on above: Performed By: #### 5 8077-9, 36496-9 ####[facility], [address], [place].#### 630-4 ####[address] [place], [place] Urine, appearance TURBID Abnormal CLEAR [facility] Comment on above: Performed By: #### 5 8077-9, 25796-3 ####[facility], [address], [place].#### 630-4 ####[facility] [address] [place], [place] Urine, color TELLO Normal YELLOW [facility] Comment on above: Performed By: #### 5 8077-9, 32048-5 ####[facility], [address] [place], [place] [address]E.[place], [place].#### 630-4 ####[facility] [address] [place], [place] Urine, hemoglobin presence 10/UL Abnormal NEGATIVE [facility] Comment on above: Performed By: #### 5 8077-9, 71095-2 ####[facility], [address] [place], [place] [address]E.[place], [place].#### 630-4 ####[address] [place], [place] Urine, leukocyte esterase presence 25/UL Abnormal NEGATIVE [facility] Comment on above: Performed By: #### 5 8077-9, 62109-2 ####[facility], [address] [place], [place] [address]E.[place], [place].#### 630-4 ####[address] [place], [place] Urine, pH 5.0 [pH] Normal 4.5-8.0 [facility] Comment on above: Performed By: #### 5 8077-9, 98527-5 ####[facility], [address] [place], [place] [address]E.[place], [place].#### 630-4 ####[address] [place], [place] Urine, protein 100 mg/dL Abnormal NEGATIVE [facility] Comment on above: Performed By: #### 5 8077-9, 35886-3 ####[facility], [address] [facility], [place].#### 630-4 ####[address] [place], [place] Urine, specific gravity 1.032 High 1.002-1.030 [facility] Comment on above: Performed By: #### 5 8077-9, 29678-3 ####[facility], [address] [place], [place].#### 630-4 ####[facility] [address] [place], [place] Urobilinogen Test strip mass conc (U) NORMAL Normal NORMAL [facility] Comment on above: Performed By: #### 5 8077-9, 52420-6 ####[facility], [address] [place], [place].#### 630-4 ####[facility] [address] [place], [place] Depart Summaryon 10-10-2017 Depart Summary EMERGENCY DEPARTMENT DISCHARGE SUMMARYPATIENT NAME:JODI BOSTON MRN: COL)-[id number]: 22 Years SEX: Female PHONE:[phone]: 10/10/2017 1:18 PM : 1995 ATTENDING PHYSICIAN:Yaneth Radford MD PCP: Physician, No PCP CHIEF COMPLAINT: Fever, Cough/ST, Congestion Allergies Compazine (Anger)Problems Active No Chronic Problems DISCHARGE DIAGNOSIS: DISCHARGE INSTRUCTIONS: Keiry's work release. ([id number]); Upper Respiratory Infection, Adult; Acute Bronchitis; Pharyngitis; Strep Throat; Sinusitis, Adult ED PHYSICIAN DOCUMENTATION: History of Present Illness I have introduced myself as the PA and informed the patient of the supervising/ collaborating physician who is available upon request. I have discussed the case with the ED physician who participated in the decisions regarding any therapeutic interventions. Physician: Dr. RadfordKeqesj35-paos-ltx white female with history of heart murmur [...] congestion and mild cough. She used numerous lvrs-wdt-gaztsiu medications and thought that she was getting [...] identified. Immediate final results were provided per protocol.[place] thanks you for the opportunity to care for your patient. Workstation ID: [id number] - [id number] FOLLOW UP:FOLLOW-UP APPOINTMENTS: Provider: Specialty: Address: Date: [facility] [address] [place] [phone] (7) Follow-up as needed Comment: This is a [...] be significantly worsening instead of improving. Normal [facility] ED Pat Eduon 10-10-2017 ED Pat Edu [place] [address] [facility] Discharge Instructions JODI BOSTON , Please provide this information to your Primary Care/Specialist Name : JODI BOSTON Current Date : 10/10/2017 14:43:31DOB : 1995 12:00 PM Primary Care Physician: Physician, [place] PCP Diagnosis : Follow-Up Instructions:JODI BOSTON has been given these follow-up instructions: FOLLOW-UP APPOINTMENTS: Provider: Specialty: Address: Date: [facility] [address] [place] [phone] (3) Follow-up as needed Comment: This is a [...] and Patient Education(s) : Keiry's work release. ([id number]); Upper Respiratory Infection, Adult; Acute Bronchitis; Pharyngitis; Strep Throat; Sinusitis, Adult EMERGENCY SERVICES MEDICATION LISTLista de Medicaciones de los Servicios de Emergencia Name JODI BOSTON MRN ([facility])-[id number] PLEASE READ THE FOLLOWING REGARDING YOUR MEDICATIONS [...] doses are changed, or new medications (including ewzk-wms-shnqgoi products) are added. If you have any [...] TAKE UNTIL YOU TALK TO YOUR DOCTORNone [place] [id number] Emergency Department Discharge Instructions Name: JODI BOSTON Current Date: 10/10/2017 14:43:31 : 1995 12:00 PM Primary Physician: Physician, No PCP We would like to thank you for choosing [facility] for your emergency medical needs. We examined [...] health of those around you. Call the [place] [employer] at 2-237-XMWA-USA or the [place] [employer] at 3-446-OPE-2258 for more information.High blood pressure: Your screening blood pressure today was 115 mm Hg / . Hypertension (high blood pressure) is blood pressure over 120/80. People with hypertension should contact their primary care provider within 30 days to follow up. Check your patient portal for additional blood pressure information.Immunizations:I mmunization is a way to protect against deadly infections. Discuss this with your child's equine vet, or Public Health Department. Your family practice doctor can determine if you need pneumonia or flu vaccine. [facility] Department can be reached at .Domestic Violence:If [...] suicide hotline, anytime day or night, at 0-713-989-QTME. Pharmacy Information:Below is a list of 24 hour pharmacies that we are aware of. We suggest that you call the specific pharmacy for their hours before traveling to a location. Hours may vary on holidays. [facility] [address] [place] [address] [phone] [place] [address] [phone] [address] [phone] [address] [phone] [phone] [phone] [place] [address] [phone] Take all medications as directed. If you need prescription assistance, contact the following agencies:?? [facility] for Prescription Assistance at or [email or web address]?? [facility] Rx at or [email or web address]?? [email or web address] is a site with many valuable coupons Patient Education Materials JODI BOSTON has been given the following patient education materials: [facility] [address] [place], [place] [address]Phone: Osjw Release FormThis notice verifies that your employee [...] Document Reviewed: 07/20/2012Prieto Interactive Patient Education ?2016 [employer].ENTPharyngitisPharyngit is is redness, pain, and swelling [...] urine clear or pale yellow. ?Only take idpt-zqz-fkpwnxg or prescription medicines as directed by your [...] Document Reviewed: 03/13/2014Prieto Interactive Patient Education ?2016 [employer].Strep ThroatStrep throat is an infection of the [...] Document Reviewed: 10/29/2015Prieto Interactive Patient Education ?2016 [employer].Emergency MedicineUpper Respiratory Infection, AdultMost upper respiratory [...] Document Reviewed: 10/11/2014Xenaevcarli Interactive Patient Education ?2016 [employer].Acute BronchitisBronchitis is inflammation of the airways [...] Document Reviewed: 12/27/2013Prieto Interactive Patient Education ?2016 [employer]><><><><><><><><><><>< ><><><><><><><><><><><><><> Patient Visit Summary Signature TEJ, JODI A has been given the following list of patient education materials, prescriptions and follow-up instructions: TEJ Whitten MORGAN A, have received the above patient education materials/instructions and have verbalized understanding: Date Time Patient Signature Date Time Provider Signature Normal [facility] ED Physician Noteson 018 ED Physician Notes Patient: NORIS BOSTON MRN: [id number] Age: 22 years Sex: Female : 1995 Associated Diagnoses: None Author: Gabriel Hutchinson History of Present Illness I have introduced myself as the PA and informed the patient of the supervising/ collaborating physician who is available upon request. I have discussed the case with the ED physician who participated in the decisions regarding any therapeutic interventions. Physician: Dr. RadfordWieiff44-[id number] white female with history of heart murmur [...] congestion and mild cough. She used numerous aujy-jbg-okttpkg medications and thought that she was getting [...] Upper Respiratory Infection, Adult, [employer] work release. ([id number]). Follow up with: ; [facility] Within Follow-up as needed This is a [...] Chief Complaint-Triage Fever, Cough/ST, Congestion . Normal [facility] ED Physician Notes PDF Normal [facility] XR Chest 2 Viewson 8 XR Chest 2 views STUDY: Chest two vie ws dated 10/10/2017 1:59 PM.COMPARISON: None.HISTORY: Cough. Fever. 3 days of symptoms. Back pain. Smoking history.FINDINGS: The heart and mediastinum are not enlarged. Vasculature is not increased. No acute consolidation, effusion or pneumothorax is identified.IMPRESSION: No acute cardiopulmonary disease identified. Immediate final results were provided per protocol.[place] thanks you for the opportunity to care for your patient. Workstation ID: [id number] - [id number] FINAL REPORT Dictated By: Marcos Dueñas MD 10/10/2017 14:01Assigned Physician: Marcos Dueñas MDReviewed and Electronically Signed By: Marcos Dueñas MD 10/10/2017 14:01Transcribed by: HELEN 10/10/2017 14:01Technologist: [facility] Normal [facility] BMPon 05-07-2017 Anion gap 3 molar conc 14 mmol/L Invalid Interpretation Code 10 - 20 mmol/L [facility] Calcium mass conc 9.0 mg/dL Invalid Interpretation Code 8.4 - 10.2 mg/dL [facility] Chloride molar conc 102 mmol/L Invalid Interpretation Code 98 - 108 mmol/L [facility] Creatinine mass conc 0.52 mg/dL Invalid Interpretation Code 0.4 - 1.1 mg/dL [facility] GFR/1.73 sq M predicted among non-blacks MDRD vol rate/area (S/P/Bld) The eGFR should be used for monitoring renal function only and not for medication dosing. Invalid Interpretation Code [facility] GFR/1.73 sq M.predicted CKD-EPI vol rate/area (S/P/Bld) 137 mL/min/1.73 m2 Invalid Interpretation Code >=60 [facility] Glucose mass conc 88 mg/dL Invalid Interpretation Code 65 - 99 mg/dL [facility] HCO3 molar conc 27 mmol/L Invalid Interpretation Code 21 - 32 mmol/L [facility] Potassium molar conc 3.7 mmol/L Invalid Interpretation Code 3.5 - 5.1 mmol/L [facility] Sodium molar conc 139 mmol/L Invalid Interpretation Code 135 - 145 mmol/L [facility] Urea nitrogen mass conc 13 mg/dL Invalid Interpretation Code 8 - 25 mg/dL [facility] Urea nitrogen/Creatinine mass ratio 25.0 mg/mg High 10.0 - 20.0 [facility] CBC Auto Differentialon 04-19 Basophils Auto #/vol (Bld) 0.02 K/mcL Invalid Interpretation Code 0.00 - 0.30 [facility] Basophils/100 WBC Auto (Bld) 0.3 % Invalid Interpretation Code [facility] Eosinophils Auto #/vol (Bld) 0.06 K/mcL Invalid Interpretation Code 0.00 - 0.50 [facility] Eosinophils/100 WBC Auto (Bld) 0.8 % Invalid Interpretation Code [facility] Erythrocyte distribution width Auto Entitic volume (RBC) 18.4 % High 11.6 - 14.8 % [facility] Hematocrit Auto Volume Fraction (Bld) 36.9 % Invalid Interpretation Code 36 - 46 % [facility] Hemoglobin mass conc (Bld) 11.4 g/dL Low 12 - 16 g/dL [facility] Immature granulocytes #/vol (Bld) 0.02 K/mcL Invalid Interpretation Code 0.00 - 0.30 [facility] Immature granulocytes/100 WBC (Bld) 0.30 % Invalid Interpretation Code [facility] Comment on above: The IG parameter is the percentage of metamyelocytes, myelocytes, and promyelocytes. Lymphocytes Auto #/vol (Bld) 2.18 K/mcL Invalid Interpretation Code 0.90 - 4.00 [facility] Lymphocytes/100 WBC Auto (Bld) 28.3 % Invalid Interpretation Code [facility]CH Auto Entitic mass (RBC) 24.6 pg Low 26 - 34 pg [facility]C Auto mass conc (RBC) 30.9 g/dL Low 31 - 37 g/dL [facility] MCV Auto Entitic volume (RBC) 79.7 fL Low 80 - 100 fL [facility] Monocytes Auto #/vol (Bld) 0.56 K/mcL Invalid Interpretation Code 0.30 - 0.90 [facility] Monocytes/100 WBC Auto (Bld) 7.3 % Invalid Interpretation Code [facility] Neutrophils Auto #/vol (Bld) 4.85 K/mcL Invalid Interpretation Code 1.70 - 7.00 [facility] Neutrophils/100 WBC Auto (Bld) 63.0 % Invalid Interpretation Code [facility] Nucleated RBC #/vol (Bld) 0.00 K/mcL Invalid Interpretation Code 0.00 - 0.00 [facility] Nucleated RBC/100 WBC Ratio (Bld) 0.0 % Invalid Interpretation Code [facility] Platelet mean volume Auto Entitic volume (Bld) 11.3 fL Invalid Interpretation Code 9 - 15.5 fL [facility] Platelets Auto #/vol (Bld) 277 K/mcL Invalid Interpretation Code 150 - 400 [facility] RBC Auto #/vol (Bld) 4.63 M/mcL Invalid Interpretation Code 4.00 - 5.20 [facility] WBC Auto #/vol (Bld) 7.69 K/mcL Invalid Interpretation Code 4.50 - 11.00 [facility] CBC w/ Diffon 05-07-2017 CBC w/ Diff The following orders were created for panel order CBC w/ Diff. Procedure Abnormality Status --------- ------ CBC Auto Differential[[id number]] Abnormal Final result Please view results for these tests on the individual orders. Invalid Interpretation Code [employer] Work Phone: Gold Topon 05-07-2017 Extra Tube Hold for add-ons. Invalid Interpretation Code [facility] Comment on above: Auto resulted. [place] Drawon 05-07-2017 [place] Draw The following orders were created for panel order [place] Draw. Procedure Abnormality Status --------- ------ Gold Top[[id number]] Final result Light Blue Top[[id number]] Final result Wright Top[[id number]] Final result [place] Top[[id number]] Final result Please view results for these tests on the individual orders. Invalid Interpretation Code [employer] Work Phone: Urinalysison 05-07-2017 Bacteria Auto Ql (U) None Seen Invalid Interpretation Code None Seen /hpf [facility] Bilirubin Ql (U) Negative Invalid Interpretation Code Negative [facility] Clarity Refractometry automated Nom (U) Clear Invalid Interpretation Code Clear [facility] Color Auto Nom (U) Yellow Invalid Interpretation Code Colorless, Yellow [facility] Epithelial cells.squamous Auto #/area (Urine sed) <1 Invalid Interpretation Code 0 - 4 /hpf [facility] Glucose Automated test strip mass conc (U) Negative Invalid Interpretation Code Negative mg/dL [facility] Hemoglobin Automated test strip Ql (U) Negative Invalid Interpretation Code Negative [facility] Interpretation and review of laboratory results Abnormal Invalid Interpretation Code [facility] Ketones mass conc (U) Negative Invalid Interpretation Code Negative mg/dL [facility] Leukocyte esterase Automated test strip Ql (U) Negative Invalid Interpretation Code Negative [facility] Mucus Auto #/area (Urine sed) Few Abnormal None Seen, Rare /lpf [facility] Nitrite Automated test strip Ql (U) Negative Invalid Interpretation Code Negative [facility] pH Test strip (U) 6.0 [pH] Invalid Interpretation Code 5.0 - 7.0 [facility] Protein mass conc (U) 30 Abnormal Negative mg/dL [facility] Comment on above: False positive resul ts may occur in urines with large amounts of hemoglobin, pH greater than 8.0, contrast medium, or disinfectants including ammonium compounds. Specific gravity Automated test strip Relative Density (U) 1.021 1 Invalid Interpretation Code 1.005 - 1.025 [facility] Urobilinogen Test strip Qn (U) <2.0 Invalid Interpretation Code <2.0 mg/dL [facility] WBC Auto #/area (Urine sed) 1 /hpf Invalid Interpretation Code 0 - 5 [facility] Urinalysis Microscopic examinat ion is performed on all urinalysis samples and only positive findings are reported. The test for blood on the chemical analytic portion of urinalysis may also be positive due to hemoglobinuria and myoglobinuria and if red blood cells are present they are quantified by microscopic examination. Invalid Interpretation Code [facility] Urine Pregnancyon 05-07-2017 HCG ( test) Ql (U) Negative Invalid Interpretation Code Negative [facility] Interpretation and review of laboratory results Normal Invalid Interpretation Code [facility] Vital Signs Date Time Vital Sign Value Performing Clinician Facility 12-27-2017 11:36-0400 BMI (Body Mass Index) 23.64 kg/m2 [facility] 12-27-2017 11:36-0400 Body Temperature 98.29 [degF] [facility] 12-27-2017 11:36-0400 BP Diastolic 83 mm[Hg] [facility] 12-27-2017 11:36-0400 BP Systolic 121 mm[Hg] [facility] 12-27-2017 11:36-0400 Height 162.6 cm [facility] 12-27-2017 11:36-0400 Pulse (Heart Rate) 84 /min [facility] 12-27-2017 11:36-0400 Pulse Oximetry 97 % [facility] 12-27-2017 11:36-0400 Respiratory Rate 12 /min [facility] 12-27-2017 11:36-0400 Weight 62.46 kg [facility] 05-08-2017 13:44-0400 BP Diastolic 71 mm[Hg] Solis Andrse [facility] Work Phone: 05-08-2017 13:44-0400 BP Systolic 118 mm[Hg] Solis Andres [facility] Work Phone: 05-08-2017 13:44-0400 Pulse (Heart Rate) 68 /min [facility] 05-08-2017 13:44-0400 Pulse Oximetry 99 % [facility]: 05-08-2017 13:44-0400 Respiratory Rate 18 /min [facility] Work [facility]: 05-08-2017 10:49-0400 BMI (Body Mass Index) 23.17 kg/m2 Solis [facility] Work Phone: 05-08-2017 10:49-0400 Body Temperature 98.29 [degF] [facility] Work Phone: 05-08-2017 10:49-0400 Height 162.6 cm [facility] Work Phone: 05-08-2017 10:49-0400 Weight 61.24 kg [facility] Work Phone: 05-07-2017 19:00-0400 BP Diastolic 62 mm[Hg] Henri Pulliam [employer] Work Phone: 05-07-2017 19:00-0400 BP Systolic 108 mm[Hg] [facility] Work Phone: 05-07-2017 19:00-0400 Pulse (Heart Rate) 63 /min Henri Pulliam [employer] Work Phone: 05-07-2017 19:00-0400 Respiratory Rate 16 /min Henri Pulliam [facility] Work Phone: 05-07-2017 16:14-0400 BMI (Body Mass Index) 22.86 kg/m2 Henri Pulliam [facility] Work Phone: 05-07-2017 16:14-0400 Body Temperature 98.8 [degF] Henri Pulliam [facility] Work Phone: 05-07-2017 16:14-0400 Height 162.6 cm Henri Pulliam [facility] Work Phone: 05-07-2017 16:140400 Pulse Oximetry 100 % Henri Pulliam [facility] Work Phone: [phone]:[phone] Weight 60.42 kg Henri Pulliam [facility] Work Phone: Encounters Encounter Date Encounter Type Care Provider Facility Start: 07-09-2021 End: 07-12-2021 ambulatory DARY BLACK [facility] Start: 12-27-2017 End: 12-27-[address] [facility] Start: 12-27-2017 End: 12-27-2017 Office/outpatient visit, est, level 3 Mari Ham Work Phone: [facility] Start: 11-21-2017 End: 11-21-2017 Emergency department patient visit No PCP Physician Facility:[facility] Start: 10-10-2017 End: 10-10-2017 Emergency department patient visit No PCP Physician Facility:[facility] Start: 05-08-2017 End: 05-08-2017 [facility]: 05-08-2017 End: 05-08-2017 Emergency department patient visit Solis French Work Phone: [facility] Comment on above: Trapezius muscle spa sm (Primary Dx) Start: 05-07-2017 End: 05-07-2017 Emergency department patient visit HENRI PULLIAM [facility] Start: 05-07-2017 End: 05-07-2017 Emergency department patient visit Henri Pulliam Work Phone: [facility] Comment on above: Nonintractable heada cheryle, unspecified chronicity pattern, unspecified headache type (Primary Dx) Plan of Treatment Date Care Activity Detail Author Start: 03-20-2018 Influenza vaccination SEQUENTIAL INFLUENZA VACCINE (Season Ended) [facility] Start: 03-20-2017 Influenza vaccination SEQUENTIAL INFLUENZA VACCINE (#1) [facility] Work Phone: Start: 2007 Vaccination for human papillomavirus HPV VACCINES (1 of 3 - Female 3 Dose Series) [facility] Work Phone: Start: 1995 Adult depression screening assessment DEPRESSION SCREENING (PHQ9) [facility] Start: 1996 Screening for malignant neoplasm of cervix PAP SMEAR [facility] Work Phone: Start: 1995 SUBSTANCE ABUSE SCREENING (AUDIT-C) SUBSTANCE ABUSE SCREENING (AUDIT-C) [facility] Start: 1996 Tetanus vaccination TETANUS EVERY 10 YR [facility] Work Phone: Streptococcus pyogen es [Presence] in Throat by Organism specific culture Strep A Culture, Throat Routine Sore throat Ordered: 12/27/2017 [facility] Immunizations Immunization Date Immunization Notes Care Provider Mateo francisco 05-08-2016 influenza, seasonal, injectable Henri Pulliam [facility] Work Phone: Payers Date Payer Category Payer Unknown [id number] 2017 Unknown [id number] 2016 Unknown Social History Date Type Detail Facility Start: 12-27-2017 Tobacco smoking stat [facility] Current every day smoker [facility] History of tobacco use Cigarette Smoker [facility] Work Phone: Start: 12-27-2017 Cigarettes smoked current (pack per day) - Reported [facility] Sex Assigned At Not on file [facility] Work Phone: Start: 05-07-2017 End: 05-08-2017 Tobacco smoking status MIIS Former smoker [facility] Work Phone: Instructions * Patient Instructions - [...] 1 cup of warm water. Take an uybd-tud-yvqrqkp pain medicine, such as acetaminophen (Tylenol), ibuprofen (Advil, Motrin),or naproxen (Aleve). Read and follow all instructions on the label. Be careful when taking tnjr-pqj-puveofb cold or flu medicines and Tylenol at [...] soup, may help decrease throat pain. Use plop-mpk-ojyjijj throat lozenges to soothe pain. Regular cough [...] Log into your personal health record on https://[employer] and enter U420 in the Education box to learn more about Sore Throat: Care Instructions. Current as of: November 28, 2016 Content Version: 05.25 [employer]. Care instructions adapted under license by your healthcare professional. If you have questions about a medical condition or this instruction, always ask your healthcare professional. [employer] disclaims any warranty or liability for your [...] rest if you feel tired. Take an wenh-oln-kyptodc pain medicine if needed, such as acetaminophen (Tylenol), ibuprofen (Advil, Motrin), or naproxen (Aleve). Read and follow all instructions on the label. Be careful when taking icda-vxd-ikxkuym cold or flu medicines and Tylenol at [...] Log into your personal health record on https://[employer] and enter L906 in the Education box to learn more about Viral Infections: Care Instructions. Current as of: June 06, 2017 Content Version: .20058714-5308 [employer]. Care instructions adapted under license by your healthcare professional. If you have questions about a medical condition or this instruction, always ask your healthcare professional. [employer] disclaims any warranty or liability for your [...] your doctor if you can take an mmle-spb-mpgtavp medicine. Be careful not to take pain [...] Log into your personal health record on https://[employer] and enter M271 in the Education box to learn more about Headache: Care Instructions. Current as of: May 02, 2016 Content Version: 11.2 3491-7389 [employer]. Care instructions adapted under license by your healthcare professional. If you have questions about a medical condition or this instruction, always ask your healthcare professional. [employer] disclaims any warranty or liability for your use of this information. in this encounter Additional Source Comments INFORMATION SOURCE (unrecogn ized section and content) DATE CREATED AUTHOR 01/05/2018 [facility] DATE CREATED AUTHOR AUTHOR'S ORGANIZ ATION 01/12/2018 [facility] DATE CREATED AUTHOR AUTHOR'S ORGANIZ ATION 02/02/2018 [facility] DATE CREATED AUTHOR AUTHOR'S ORGANIZ ATION 07/12/2021 [facility] Reason for Visit (unrecogniz ed section [...] the patient. I discussed the patient with INSIDE UPHOLSTERER/PA. I agree with the INSIDE UPHOLSTERER/PA treatment plan. I agree with the INSIDE UPHOLSTERER/PA plan of care. I agree with the INSIDE UPHOLSTERER/PA dispo as documented. The patient has been [...] Procedure Abnormality Status --------- ------ CBC Auto Differential[[id number]] Abnormal Final result Please view results for these tests on the individual orders. RAINBOW DRAW Narrative: The following orders were created for panel order [place] Draw. Procedure Abnormality Status --------- ------ Gold Top[[id number]] In process Light Blue Top[[id number]] In process Wright Top[[id number]] In process [place] Top[[id number]] In process Please view results for these [...] note may be different from the original. [facility] ED Resident Note: NAME: Jodi Boston 22 y.o. CSN: [id number] PCP: Roxane Beasley DO History: Chief Complaint: [...] PMSx: Past Surgical History: Procedure Laterality Date Oil Well Shooter WISDOM TOOTH EXTRACTION FAM. 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 RAINBOW DRAW Narrative: The following orders were created for panel order [place] Draw. Procedure Abnormality Status --------- ------ Gold Top[[id number]] In process Light Blue Top[[id number]] In process [place] Top[[id number]] In process [place] Top[[id number]] In process Please view results for these [...] Given 05/07/171728) This note was generated by [place] [employer] voice recognition software and as a result grammatical or spelling errors may occur using this program. Clinical Impression: SNOMED CT(R) 1. Nonintractable headache, unspecified chronicity pattern, unspecified headache type HEADACHE Disposition: Patient is being discharged to home New Prescriptions No medications on file Alyssa Tellez DO ED Resident Physician [facility] Emergency Department (Please note that portions [...] wall movement. Circulation: Skin warm and dry, TECHNICAL BUSINESS ANALYST < 3 seconds, 2+ Bilateral radial pulses. [...] to the room to provide pt with DC/accounts payable administrator/care instructions. 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 All imaging has been read by a Radiologist. Eleno Thao PA-C 05/08/17 1315 Pt presents to the ED c/o of severe neck pain. Pt was tx at [facility] yesterday for migraine at which time [...] night, pt was seen in ED at [facility] yesterday treated for migraine headache, denies [...] BE BASED ON THE PRIMARY CLINICAL RECORDS. [employer] provides no warranty or guarantee of the accuracy or completeness of information in this document.
[2023-08-28 15:43] LABS: Basophils Percent Auto 0.1 % (0.2-2.0); Eosinophils Percent Auto 0.4 % (0.9-7.0); Hematocrit 29.5 % (36.0-48.0); Hemoglobin 9.2 g/dL (12.0-16.0); Immature Granulocytes Abs Auto 0.08 10^3/uL (0.00-0.03); Immature Granulocytes Pct Auto 0.8 % (0.0-0.5); Lymphocytes Absolute Auto 1.8 10^3/uL (1.2-3.8); Lymphocytes Percent Auto 19.1 % (20.5-60.0); Mean Corpuscular HGB Conc 31.2 g/dL (29.9-35.2); Mean Corpuscular Hemoglobin 26.5 pg (26.7-34.0); Mean Platelet Volume 10.5 fL (9.5-13.5); Monocytes Absolute Auto 0.8 10^3/uL (0.3-0.8); Neutrophils Absolute Auto 6.9 10^3/uL (1.4-6.5); Neutrophils Percent Auto 71.6 % (43.0-75.0); Platelet Count 192 10^3/uL (150-450); Red Blood Count 3.47 10^6/uL (4.20-5.40); Red Cell Distribution Width 13.4 % (11.0-15.0); White Blood Count 9.6 10^3/uL (4.0-11.0)
== END 2023-08-28 15:23 | disposition home or self-care (01) ==
LOC: LAB 15:23
PROVIDERS: Visit Provider Physician Assistant
DX: O99.012 Anemia complicating pregnancy, second trimester (principal)
CPT/HCPCS: 36415; 85025

== ENCOUNTER 2023-09-14 07:33 | Outpatient (RCR) | payer OTHER, SELFPAY ==
[2023-09-07 10:00] VITALS: BP 121/64; PULSE 89; RESP 16; TEMP 36.7; O2SAT 96
[2023-09-07] MEDS: FERRIC CARBOXYMALTOSE 750 MG in 0.9 % SODIUM CHLORIDE 250 ML 1060 MG IV (10:13)
--- NOTE | 2023-09-07 10:34 | PC.NURSE ---
1000: Pt. to [facility] amb. for iron infusion. Pt. 31weeks gestation. Seated in recliner. VSS. #22 gauge IV initiated to right hand on first attempt without difficulty. Flushes easily without redness or edema. Pt. tolerated wtih min. c/o discomfort. 1009: IV Injectafer initiated at this time. 1035: Tolerating infusion without c/o. Given ice and warm blanket per pt. request.
--- NOTE | 2023-09-07 10:51 | PC.NURSE ---
1048: IV infusion completed at this time. Pt. tolerated without s&s of adverse reaction. IV d/c'd, pressure to site. 1049: Pt. d/c'd, pressure to site.
[2023-09-14 09:45] VITALS: BP 127/75; PULSE 65; RESP 18; O2SAT 99
[2023-09-14] MEDS: FERRIC CARBOXYMALTOSE 750 MG in 0.9 % SODIUM CHLORIDE 250 ML 1060 MG IV (10:10)
== END 2023-09-17 23:59 | disposition home or self-care (01) ==
LOC: INF 07:33
PROVIDERS: Visit Provider Obstetrics & Gynecology
DX: D50.9 Iron deficiency anemia, unspecified (principal)
CPT/HCPCS: 96365; J1439

== ENCOUNTER 2023-09-19 11:01 | Outpatient (OUT) | payer OTHER, SELFPAY ==
--- NOTE | 2023-09-19 11:05 | US_ITS ---
[place] [id number] Patient Name: JODI BURNHAM MRN: [id number] date: 1995 Sex: F Assigned Patient Location: US Current Patient Location: Accession/Order Number: [id number] Exam Date: 09/19/2023 11:05 Report Date: 09/21/2023 07:16 At the request of: JANKI STOREY Procedure: US OB growth EXAMINATION: US OB growth HISTORY: LGA COMPARISON: No relevant comparison available. FINDINGS: Heart Rate: 136.4 bpm Amniotic Fluid Volume: 15.9 cm Number: 1.0 Position: cephalic Maximum Vertical Pocket: 5.9 cm cm 3.3 cm cm 3.9 cm cm 2.9 cm cm BIOMETRY: BPD: 8.4 cm cm; 33 weeks 6 days; 79% HC: 31.5 cmcm; 35 weeks 2 days , 83% AC: 30.1 cm cm; 34 weeks 1 days, 88% FL: 6.4 cm cm; 33 weeks 1 days; 54.8 % % EFW: 2312.2 grams, 5 lbs. 2 oz., 82% FL/AC: 21.3 FL/BPD: 76.5 HC/AC: 1.0 GESTATIONAL AGE: Age by EDC: 32 weeks 4 days URIAH by EDC: 11/10/2023 Age by US: 34 weeks 1 day URIAH by US: 10/30/2023 US/US OB growth IMPRESSION: Normal interval growth Electronically authenticated by: ALEJANDRA CARR Date: 09/21/2023 07:16
== END 2023-09-19 11:02 | disposition home or self-care (01) ==
LOC: US 11:01
PROVIDERS: Visit Provider Obstetrics & Gynecology
DX: O36.63X0 Maternal care for excessive fetal growth, third trimester, not applicable or unspecified (principal); Z3A.32 32 weeks gestation of pregnancy
CPT/HCPCS: 76816

== ENCOUNTER 2023-09-29 16:27 | Outpatient (OUT) | payer OTHER, SELFPAY ==
--- OUTSIDE RECORDS SUMMARY | 2023-09-29 16:34 | XMS_ITS | CCD ---
Author Name Unknown Address [address] [place] [address] Organization [facility] Care Team Providers Care Oxidation Operator Name Role Phone Ramos Roxane Levi Unavailable [phone] ROXANE BEASLEYCA Unavailable Unavail able MARI HAM Unavailable Unavailable HENRI PULLIAM Unavailable Unavailabl e RAMOS, ROXANE LEVI Unavailable Unavail able HENRI PULLIAM Unavailable Unavailabl e BEASLEY, ROXANE LEVI Unavailable Unavail able SOLIS FRENCH Unavailable Unavailable Physician, No PCP Unavailable Unavailable YANETH RADFORD Unavailable Unavailable Physician, No PCP Unavailable Unavailable Ernestine Mckeon Unavailable Unavailable DRAY BLACK I Referring Unavailable DARY BLACK I Referring Unavailable Unavailable Primary Care Provider Unavailabl e Allergies Allergy Classification Reported Allergen(s) Allergy Type Date of Onset Reaction(s) Facility (1 source) Latex Propensity to adverse reactions 08-26-19 19 Rash [facility] Work Phone: (1 source) Prochlorperazine Drug Allergy 05-07-20 18 [facility] Medications Current Medications Medication Drug Class(es) Dates Sig (Normalized) Sig (Original) citalopram 20 mg oral tablet (1 source) Serotonin Reuptake Inhibitor Start: 08-05-2023 End: 11-13-2023 take 0.5 tablet by mouth once in the morning citalopram (CeleXA) 20 MG tablet Indications: Anemia during in second trimester Take 0.5 tablets (10 mg) by mouth in the morning. 50 tablet 0 08/05/2023 11/13/2023 Active docusate sodium 100 mg oral capsule (1 source) Start: 08-05-2023 take 1 capsule by mouth twice daily as needed for constipation docusate sodium (Colace) 100 MG capsule Indications: Constipation, unspecified constipation type Take 1 capsule (100 mg) by mouth 2 (two) times a day as needed for constipation 30 capsule 5 08/05/2023 Active [id number] 0.3 ml EPINEPHrine 1 mg/ml auto-injector (4 sources) alpha-Adrenergic Agonist, beta-Adrenergic Agonist, Catecholamine EPINEPHrine (Epipen) 0.3 MG/0.3ML injection syringe Inject 1 Syringe as directed 1 (one) time. 0 Active EPINEPHrine (EPI PEN) 0.3 mg/0.3 mL [...] parts viscous lidocaine 2%, diphenhydramine 12.5mg/5mL, maalox 602mp-767qq-16nu/5mL (1 source) Start: 018 End: 018 magic mouthwash susp equal parts viscous lidocaine 2%, diphenhydramine 12.5mg/5mL, maalox 719po-753vq-44rq/5mL Swish and spit 5 mL every 6 (six) hours as needed. 180 mL 0 12/27/2017 12/30/2017 Active omeprazole 20 mg delayed release oral capsule (3 sources) Proton Pump Inhibitor Start: 017 take 11 capsules by mouth once daily omeprazole (PRILOSEC) 20 MG capsule TK ONE C PO QD 11 12/01/2016 Active polysaccharide iron complex 391 mg oral capsule (1 source) Start: 024 End: 025 take 1 capsule by mouth in the morning iron polysaccharides (ProFe) 391.3 (180 Fe) MG capsule Indications: Tired Take 1 capsule (391.3 mg) by mouth in the morning. 360 capsule 0 08/05/2023 08/04/2024 Active Ksqkmf-ToSmd-GxQcs-FA-C [place] (Complete Annette DHA) 29-1-200 & 200 MG misc (1 source) Start: 023 Lsxqie-OhRiu-HwHht-FA- [place] (Complete Annette DHA) 29-1-200 & 200 MG misc TAKE 1 TABLET AND 1 CAPSULE ONCE DAILY 0 03/05/2023 Active tiZANidine 4 mg oral capsule (2 sources) Central alpha-2 Adrenergic Agonist Start: 017 End: 017 take 1 capsule by mouth three times [...] et 2 mg 2 mg, Oral, Once, Thu05/08/17 at 1135, For 1 dose Given 05/08/2017 12:47 EDT 2 mg Completed/Discontinued Medications Medication Drug Class(es) Dates Sig (Normalized) Sig (Original) Diphenhydramine 50 Mg/Ml Injection Solution (1 source) Histamine-1 Receptor Antagonist Start: 05-07-2017 End: 05-07-2017 take 25 mg intravenous route once, then take 25 mg intravenous route diphenhydrAMINE (BENADRYL) injection 25 mg 25 mg, Intravenous, Once, [facility] 05/07/17 at 1720, For 1 dose, For [...] Test Name Value Interpretation Reference Range Facility ALL CBC WITH AUTO DIFFon BASOPHILS ABSOLUTE AUTO 0.0 [facility] Basophils/100 WBC (Bld) 0.1 % Low 0.2 - 2.0 % [facility] Eosinophils/100 WBC (Bld) 0.4 % Low 0.9 - 7.0 % [facility] Erythrocyte distribution width (RBC) [Ratio] 13.4 % 11.0 - 15.0 % [facility] Hematocrit (Bld) [Volume fraction] 29.5 % Low 36.0 - 48.0 % [facility] Hemoglobin (Bld) [Mass/Vol] 9.2 g/dL Low 12.0 - 16.0 g/dL [facility] IMMATURE GRANULOCYTES ABS AUTO 0.08 High [facility] Immature granulocytes/100 WBC (Bld) 0.8 % High 0.0 - 0.5 % [facility] Interpretation and review of laboratory results Abnormal [facility] LYMPHOCYTES ABSOLUTE AUTO 1.8 [facility] Lymphocytes/100 WBC (Bld) 19.1 % Low 20.5 - 60.0 % [facility] MCH (RBC) [Entitic mass] 26.5 pg Low 26.7 - 34.0 pg [facility] MCHC (RBC) [Mass/Vol] 31.2 g/dL 29.9 - 35.2 g/dL [facility] MCV (RBC) [Entitic vol] 85.0 fL 81.0 - 99.0 fL [facility] MONOCYTES ABSOLUTE AUTO 0.8 [facility] Monocytes/100 WBC (Bld) 8.0 % 1.7 - 12.0 % [facility] NEUTROPHILS ABSOLUTE AUTO 6.9 High [facility] Neutrophils/100 WBC (Bld) 71.6 % 43.0 - 75.0 % [facility] Platelet mean volume (Bld) [Entitic vol] 10.5 fL 9.5 - 13.5 fL [facility] TBH EO # 0.0 [facility] TB PLT 192 [facility] RBC 3.47 Low [facility] WBC 9.6 [facility] XR CHEST (2 VW)on 07-09-2021 XR CHEST [...] Hamzah Kaba MD 07/09/21 Final result Normal [facility] POC Rapid Strep Aon 12-28-19 Interpretation and review of laboratory results Normal Invalid Interpretation Code [facility] Streptococcus pyogenes antigen presence Negative Invalid Interpretation Code Negative [facility] Basic Metabolic Panelon Anion gap 8.0 mmol/L Normal 6.0-18.0 [facility] Comment on above: Result Comment: PLEA SE NOTE:The calculated Anion Gap(AGAP) does not include Potassium. Performed By: #### 6 9405-9, 26462-2o8, 3040-3, 05016-0, 27315-1 ####[facility], [address], [place]. Calcium 9.3 mg/dL Normal 8.9-10.3 [facility] Comment on above: Performed By: #### 6 9405-9, 63981-4s2, 3040-3, 61308-7, 21226- 3 ####[facility], [address] [place] Chloride 106 mmol/L Normal 98-107 [facility] Comment on above: Performed By: #### 6 9405-9, 38688-7s3, 3040-3, 75009-4, 59977- 3 ####[facility], [address] [place] CO2 25 mmol/L Normal 22-32 [facility] Comment on above: Performed By: #### 6 9405-9, 72672-2c5, 3040-3, 85718-4, 19480- 3 ####[facility], [address] [place] Creatinine 0.65 mg/dL Low 0.66-1.30 [facility] Comment on above: Performed By: #### 6 9405-9, 56495-3s4, 3040-3, 63834-2, 19429- 3 ####[facility], [address] [place]. Glucose mass conc 88 mg/dL Normal 70-110 [facility] Comment on above: Performed By: #### 6 9405-9, 35967-1h1, 3040-3, 81955-7, 00127- 3 ####[facility], [address] [place] Potassium molar conc 3.5 mmol/L Low 3.6-5.1 [facility] Comment on above: Performed By: #### 6 9405-9, 57360-9k1, 3040-3, 08563-2, 67369- 3 ####[facility], [address], [place]. Sodium 139 mmol/L Normal 136-145 [facility] Comment on above: Performed By: #### 6 9405-9, 78581-1t6, 3040-3, 33296-9, 97669- 3 ####[facility], [address] [place], [place]. Urea nitrogen mass conc (BldV) 10 mg/dL Normal 8-20 [facility] Comment on above: Performed By: #### 6 9405-9, 43953-5k5, 3040-3, 74628-8, 87096- 3 ####[facility], [address], [place]. CBCon 11-21-2017 Erythrocyte distribution width Entitic volume (RBC) 20.1 % High 11.0-14.8 [facility] Comment on above: Performed By: #### 2 4317-0 ####[facility], [address]. Erythrocytes (RBC) 4.57 million/mcL Normal 3.80-5.10 [facility] Comment on above: Performed By: #### 2 4317-0 ####[facility], [address] [place] Hematocrit (HCT) 34.8 % Low 35.0-45.0 [facility] Comment on above: Performed By: #### 2 4317-0 ####[facility], [address], [place], [place]. Hemoglobin mass conc (Bld) 11.3 g/dL Low 12.0-16.0 [facility] Comment on above: Performed By: #### 2 4317-0 ####[facility], [address] [address] [place]. MCH 24.8 Picograms Low 27.0-34.0 [facility] Comment on above: Performed By: #### 2 4317-0 ####[facility], [address]. MCHC mass conc (RBC) 32.6 g/dL Normal 32.0-36.0 [facility] Comment on above: Performed By: #### 2 4317-0 ####[facility], [address], [place]. MCV 76.1 fL Low 80.0-97.0 [facility] Comment on above: Performed By: #### 2 4317-0 ####[facility], [address], [place]. Platelet mean volume Entitic volume (Bld) 8.9 FL Normal 6.2-12.1 [facility] Comment on above: Performed By: #### 2 4317-0 ####[facility], [address] [facility] [place] Platelets 251 thou/mcL Normal 142-424 [facility] Comment on above: Performed By: #### 2 4317-0 ####[facility], [address] [place], [place]. WBC (Leukocytes) 6.4 thou/mcL Normal 4.6-10.2 [facility] Comment on above: Performed By: #### 2 4317-0 ####[facility], [address] [place] [address]. CT Abd and Pelvis w Contrast on [...] emergency department following dictation on 11/21/2017 3:41 AM.Josh Cochran thanks you for the opportunity to care for your patient. Workstation ID: [id number] FINAL REPORT Dictated By: Pérez Queen MD 11/21/2017 03:38Assigned Physician: Pérez Queen MDReviewed and Electronically Signed By: Pérez Queen MD 11/21/2017 03:42Transcribed by: HELEN 11/21/2017 03:38Technologist: YRIS Normal [facility] Culture Urine + Susceptibili tyon 11-21-2017 Urine culture, bacteria [facility] MicrobiologyPROCEDURE: Culture Urine + SusceptibilitySOURCE: Urine BODY SITE:COLLECTED DATE/TIME: 11/21/2017 01:41 EDT RECEIVED DATE/TIME: 11/21/2017 01:41 EDTSTART DATE/TIME: 11/21/2017 01:41 EDT FREE TEXT SOURCE: URINEINTERFACED REPORTSFinal Report []Verified Date/Time/Personnel: 11/22/2017 12:17 EDT CONTRIBUTOR_SYSTEM, CO_PNORGANISMS USUALLY ASSOCIATED WITH VAGINAL,URETHRAL,AND/OR SKIN CONTAMINATION PRESENT. [facility] Comment on above: Performed By: #### 5 8077-9, 17820-6 ####[facility], [address], [place].#### 630-4 ####[facility] [address], [place] Depart Summaryon 11-21-2017 Depart Summary EMERGENCY DEPARTMENT DISCHARGE SUMMARYPATIENT NAME:JODI BOSTON MRN: ([id number]: 22 Years SEX: Female PHONE:[id number]: 11/20/2017 10:57 PM : 1995 ATTENDING PHYSICIAN:Ernestine Mckeon MD PCP: Physician, No PCP CHIEF COMPLAINT: abdominal pain Allergies Compazine (Anger)Problems Active No Chronic Problems DISCHARGE DIAGNOSIS: DISCHARGE INSTRUCTIONS: Work Release (CO-S) (CUSTOM); Abdominal Pain, Adult ED PHYSICIAN DOCUMENTATION: History of Present [id number] female with no significant medical history presents [...] Delivery: ?Room air?Temperature:??98 .3 ?(11/20 22:59)?Pulse:??71 ?(11/21 01:34)?Respiration:??18 ?(11/21 00:34)?BP:??108/70 ?(11/21 00:)?Pulse Ox:??99 ?(11/21 00:)?Oxygen Delivery:??Room air ?(11/21 00:)?Pain [...] Result(s): Date Order Results 11/20/2017 23:06 Specific [place] Urine POCT N 1.030 11/20/2017 23:06 pH Urine POCT N 5 11/20/2017 23:06 Urobilinogen Urine POCT N 0 mg/dL 11/21/2017 01:41 Appearance Urine A TURBID 11/21/2017 01:41 Specific [place] Urine H 1.032 11/21/2017 01:41 Blood Urine [...] emergency department following dictation on 11/21/2017 3:41 AM.[place] thanks you for the opportunity to care [...] any generalized worsening of your condition. Normal [facility] ED Pat Eduon 11-21-2017 ED [place] [address] [facility] Discharge Instructions JODI BOSTON , Please provide this information to your Primary Care/Specialist Name : JODI BOSTON Current Date : 11/21/2017 03:50:01DOB : 1995 12:00 PM Primary Care Physician: Physician, No PCP Diagnosis : Follow-Up Instructions:JODI BOSTON has [...] los [facility] Name JODI BOSTON PLEASE READ THE FOLLOWING REGARDING YOUR MEDICATIONS [...] doses are changed, or new medications (including mgmk-gtl-kpljhgc products) are added. If you have any [...] TAKE UNTIL YOU TALK TO YOUR DOCTORNone [place] [id number] Emergency Department Discharge Instructions Name: JODI BOSTON Current Date: 11/21/2017 03:50:01 : 1995 12:00 PM Primary Physician: Physician, No PCP We would like to thank you for choosing [facility] for your emergency medical needs. We examined [...] health of those around you. Call the [place] [employer] at 1-922-IVZG-[place] or the [place] Cancer Society at 6-749-DNF-1765 for more information.High blood pressure: Your screening blood pressure today was 108 mm Hg / . Hypertension (high blood pressure) is blood pressure over 120/80. People with hypertension should contact their primary care provider within 30 days to follow up. Check your patient portal for additional blood pressure information.Immunizations:I mmunization is a way to protect against deadly infections. Discuss this with your child's hemodialysis rn, or Public Health Department. Your family practice doctor can determine if you need pneumonia or flu vaccine. The [facility] can be reached at .Domestic Violence:If [...] suicide hotline, anytime day or night, at 5-512-474-GGBR. Pharmacy Information:Below is a list of 24 hour pharmacies that we are aware of. We suggest that you call the specific pharmacy for their hours before traveling to a location. Hours may vary on holidays. [facility] [address] [address] [phone] [address] [phone] [address] [phone] [place] [address] [phone] [place] [address] [phone] [place] [address] [phone] [place] [address] [phone] Take all medications as directed. If you need prescription assistance, contact the following agencies:?? [facility] for Prescription Assistance at or www.[place].org?? [facility] Best Rx at or www.7billionideasrResponse [employer].[place]?? [employer] is a site with many valuable coupons [...] alleviate any discomfort you are experiencing:???Only take mfrz-teg-fjyjjzl or prescription medicines as directed by your [...] Document Reviewed: 03/15/2014[employer] Patient Education ?2016 [employer]><><><><><><><><><><>< ><><><><><><><><><><><>< ><> Patient Visit Summary Signature JODI BOSTON has been given the following list of patient education materials, prescriptions and follow-up instructions: DARVIN Whitten MORGAN A, have received the above patient education materials/instructions and have verbalized understanding: Date Time Patient Signature Date Time Provider Signature [facility] ED Physician Noteson 018 ED Physician Notes Chief Complaint kristan Rhoades Assigned Provider/Time Time Seen: Ernestine Mckeon MD [...] (11/21 01:34) Oxygen Delivery: Room air (11/21 01:34) Pain Score: 4 (11/20 22:59) PULSE OX [...] chronic problems Historical No qualifying dataProcedure/Surgical History [place] tooth.Medications Home No active home medications ED [...] department following dictation on 11/21/2017 3:41 AM. [place] thanks you for the opportunity to care [...] MD November 21, 2017 00:59 Completed Normal [facility] ED Physician Notes PDF Normal [facility] GFRaaon 11-21-2017 eGFR (black) mL/min/{1.73_m2} Normal [facility] Comment on above: Result Comment: The MDRD equation has not been validated for those over 70 years, women, patients with serious co-morbid conditions, or with extremes of bodysize, muscle mass of nutritional status. Performed By: #### 6 9405-9, 37067-2t2, 3040-3, 54307-8, 26881-4 ####[facility], [facility] [address], [place]. GFRbbon 11-21-2017 eGFR (non-black) mL/min/{1.73_m2} Normal [facility] Comment on above: Performed By: #### 6 9405-9, 35147-9g4, 3040-3, 60450-6, 26021- 3 ####[facility], [address] [place], [place]. Hepatic Function Panelon Alanine aminotransferase (ALT) 15 Units/L Normal 14-63 [facility] Comment on above: Performed By: #### 6 9405-9, 97960-4j3, 3040-3, 95648-2, 23152- 3 ####[facility], [address], [place]. Albumin 4.2 g/dL Normal 3.5-4.8 [facility] Comment on above: Performed By: #### 6 9405-9, 18566-4u9, 3040-3, 34524-4, 73232- 3 ####[facility], [address] [place], [place]. Alkaline phosphatase (ALP) 36 Units/L Normal 32-91 [facility] Comment on above: Performed By: #### 6 9405-9, 39440-7r4, 3040-3, 72311-4, 39745- 3 ####[facility], [address] [place], [place]. Aspartate aminotransferase (AST) 19 Units/L Normal 15-41 [facility] Comment on above: Performed By: #### 6 9405-9, 55608-8j9, 3040-3, 80233-0, 35031- 3 ####[facility], [address] [place], [place]. Bilirubin (direct) 0.1 mg/dL Normal 0.1-0.5 [facility] Comment on above: Performed By: #### 6 9405-9, 59841-5b7, 3040-3, 28369-4, 10752- 3 ####[facility], [address] [place]. Bilirubin (total) 0.6 mg/dL Normal 0.3-1.2 [facility] Comment on above: Performed By: #### 6 9405-9, 95172-6p8, 3040-3, 70103-5, 99841- 3 ####[facility], [address] [facility] [place] Bilirubin.indirect mass conc 0.5 mg/dL Normal 0.0-1.0 [facility] Comment on above: Performed By: #### 6 9405-9, 12457-6w6, 3040-3, 89777-2, 26536- 3 ####[facility], [address] [facility] [place] Protein 6.9 g/dL Normal 6.1-7.9 [facility] Comment on above: Performed By: #### 6 9405-9, 96085-1n6, 3040-3, 67358-3, 50073- 3 ####[facility], [address] [place] Lipaseon 11-21-2017 Lipase 21 Units/L Low 22-51 [facility] Comment on above: Performed By: #### 6 9405-9, 07285-9k9, 3040-3, 27226-6, 91925- 3 ####[facility], [address] [place], [place] Urinalysis Microscopicon Urine, amorphous crystals presence in sediment FEW Abnormal NONE/HPF [facility] Comment on above: Performed By: #### 5 8077-9, 56084-8 ####[facility], [address] [place], [place].#### 630-4 ####[facility] [address], [place] Urine, bacteria in sediment FEW Abnormal NONE/HPF [facility] Comment on above: Performed By: #### 5 8077-9, 80466-9 ####[facility], [address] [facility] [place], [place].#### 630-4 ####[place] [address] [place], [place] Urine, erythrocytes in sediment by area 6 /[HPF] High 0-5 [facility] Comment on above: Performed By: #### 5 8077-9, 39591-8 ####[facility], [address] [facility] [place], [place].#### 630-4 ####[place] [address] [place], [place] Urine, mucus presence in sediment MANY Abnormal NONE/LPF [facility] Comment on above: Performed By: #### 5 8077-9, 51809-5 ####[facility], [address] [place], [place] [address], [place].#### 630-4 ####[address] Urine, squamous cells in sediment MANY Abnormal FEW/LPF [facility] Comment on above: Performed By: #### 5 8077-9, 22125-7 ####[facility], [address] [place], [place] [address], [place].#### 630-4 ####[address] WBC Urine 6 /hpf High 0-5 [facility] Comment on above: Performed By: #### 5 8077-9, 72142-7 ####[facility], [address] [place], [place] [address], [place].#### 630-4 ####[place] [address] [place], [place] Urinalysis with Microscopic Automatic with Reflexon 11-21-2017 Bilirubin Test strip mass conc (U) Negative Normal NEGATIVE [facility] Comment on above: Performed By: #### 5 8077-9, 33871-2 ####[facility], [address] [facility] [place], [place].#### 630-4 ####[place] [address] [place], [place] Glucose Test strip mass conc (U) NORMAL Normal NORMAL [facility] Comment on above: Performed By: #### 5 8077-9, 04110-7 ####[facility], [address], [place].#### 630-4 ####[place] [address] [place], [place] Ketones Test strip mass conc (U) 80MG/DL Abnormal NEGATIVE [facility] Comment on above: Performed By: #### 5 8077-9, 57333-8 ####[facility], [address], [place].#### 630-4 ####[address] Nitrite Test strip mass conc (U) Negative Normal NEGATIVE [facility] Comment on above: Performed By: #### 5 8077-9, 30715-2 ####[facility], [address] [place], [place].#### 630-4 ####[place] [address] [place], [place] Urine, appearance TURBID Abnormal CLEAR [facility] Comment on above: Performed By: #### 5 8077-9, 31530-3 ####[facility], [address] [place], [place].#### 630-4 ####[place] [address] [place], [place] Urine, color TELLO Normal YELLOW [facility] Comment on above: Performed By: #### 5 8077-9, 51794-1 ####[facility], [address], [place].#### 630-4 ####[place] [address] [place], [place] Urine, hemoglobin presence 10/UL Abnormal NEGATIVE [facility] Comment on above: Performed By: #### 5 8077-9, 41659-3 ####[facility], [address] [place], [place].#### 630-4 ####[place] [address] [place], [place] Urine, leukocyte esterase presence 25/UL Abnormal NEGATIVE [facility] Comment on above: Performed By: #### 5 8077-9, 71135-8 ####[facility], [address], [place].#### 630-4 ####[place] [address] [place], [place] Urine, pH 5.0 [pH] Normal 4.5-8.0 [facility] Comment on above: Performed By: #### 5 8077-9, 38625-3 ####[facility], [address] [place] [address].#### 630-4 ####[place] [address] [place], [place] Urine, protein 100 mg/dL Abnormal NEGATIVE [facility] Comment on above: Performed By: #### 5 8077-9, 65803-4 ####[facility], [address] [place] [address].#### 630-4 ####[place] [address] [place], [place] Urine, specific gravity 1.032 High 1.002-1.030 [facility] Comment on above: Performed By: #### 5 8077-9, 64593-9 ####[facility], [address] [facility] [place].#### 630-4 ####[place] [address] [place], [place] Urobilinogen Test strip mass conc (U) NORMAL Normal NORMAL [facility] Comment on above: Performed By: #### 5 8077-9, 53367-3 ####[facility], [address] [place], [place].#### 630-4 ####[facility] [address] [place], [place] Depart Summaryon 10-10-2017 Depart Summary EMERGENCY DEPARTMENT DISCHARGE SUMMARYPATIENT NAME:JODI BOSTON MRN: [id number]: 22 Years SEX: Female PHONE:[phone]: 10/10/2017 1:18 PM : 1995 ATTENDING PHYSICIAN:Yaneth Radford MD PCP: Physician, No PCP CHIEF COMPLAINT: Fever, Cough/ST, Congestion Allergies Compazine (Anger)Problems Active No Chronic Problems DISCHARGE DIAGNOSIS: DISCHARGE INSTRUCTIONS: AA-Jayce's work release. ([id number]); Upper Respiratory Infection, Adult; Acute Bronchitis; Pharyngitis; Strep Throat; Sinusitis, Adult ED PHYSICIAN DOCUMENTATION: History of Present Illness I have introduced myself as the PA and informed the patient of the supervising/ collaborating physician who is available upon request. I have discussed the case with the ED physician who participated in the decisions regarding any therapeutic interventions. Physician: Dr. RadfordGrapub23-qgso-ymc white female with history of heart murmur [...] congestion and mild cough. She used numerous bdlq-ipy-wdmvpcw medications and thought that she was getting [...] identified. Immediate final results were provided per protocol.Josh Cochran thanks you for the opportunity to care for your patient. Workstation ID: [id number] - [id number] FOLLOW UP:FOLLOW-UP APPOINTMENTS: Provider: Specialty: Address: Date: [facility] [address] [place] [phone] (2) Follow-up as needed Comment: This is a [...] be significantly worsening instead of improving. Normal [facility] ED [facility] 10-10-2017 ED [place] [address] [facility] Department Discharge Instructions JODI BOSTON , Please provide this information to your Primary Care/Specialist Name : JODI BOSTON Current Date : 10/10/2017 14:43:31DOB : 1995 12:00 PM Primary Care Physician: Physician, [place] PCP Diagnosis : Follow-Up Instructions:JODI BOSTON has been given these follow-up instructions: FOLLOW-UP APPOINTMENTS: Provider: Specialty: Address: Date: [facility] [address] [place] [phone] (8) Follow-up as needed Comment: This is a [...] and Patient Education(s) : Keiry's work release. ([id number]); Upper Respiratory Infection, Adult; Acute Bronchitis; Pharyngitis; Strep Throat; Sinusitis, Adult EMERGENCY SERVICES MEDICATION LISTLista de Medicaciones de los Servicios de Emergencia Name JODI BOSTON MRN [facility]-[id number] [facility]# [id number] PLEASE READ THE FOLLOWING REGARDING YOUR MEDICATIONS [...] doses are changed, or new medications (including fyvr-avg-coovyur products) are added. If you have any [...] TAKE UNTIL YOU TALK TO YOUR DOCTORNone [place] [address] [facility] Department Discharge Instructions Name: JODI BOSTON Current Date: 10/10/2017 14:43:31 : 1995 12:00 PM Primary Physician: Physician, No PCP We would like to thank you for choosing [facility] for your emergency medical needs. We examined [...] health of those around you. Call the [place] [employer] at 9-814-LQXV-[place] or the [place] Cancer Society at 5-087-JFP-2661 for more information.High blood pressure: Your screening blood pressure today was 115 mm Hg / . Hypertension (high blood pressure) is blood pressure over 120/80. People with hypertension should contact their primary care provider within 30 days to follow up. Check your patient portal for additional blood pressure information.Immunizations:I mmunization is a way to protect against deadly infections. Discuss this with your child's hemodialysis rn, or Public Health Department. Your family practice doctor can determine if you need pneumonia or flu vaccine. The [facility] can be reached at .Domestic Violence:If [...] suicide hotline, anytime day or night, at 4-829-114-DZDE. Pharmacy Information:Below is a list of 24 hour pharmacies that we are aware of. We suggest that you call the specific pharmacy for their hours before traveling to a location. Hours may vary on holidays. [facility] [address] [place] [address] [phone] [address] [phone] [place] [place] [address] [phone] [place] [address] [phone] [place] [address] [phone] [place] [address] [phone] [place] [address] [phone] Take all medications as directed. If you need prescription assistance, contact the following agencies:?? Partnership for Prescription Assistance at or www.pparx.org?? [place] at or www.Shoptagrstrx.org?? www.RedShelfRx.Nuve is a site with many valuable coupons Patient Education Materials JODI BOSTON has been given the following patient education materials: [facility] [address] [place], [place] [id number]: Npeu Release FormThis notice verifies that your employee [...] Document Reviewed: 07/20/2012Prieto Interactive Patient Education ?2016 [employer].ENTPharyngitisPharyngit is is redness, pain, and swelling [...] urine clear or pale yellow. ?Only take xqch-nvu-ktdasdr or prescription medicines as directed by your [...] Document Reviewed: 03/13/2014Prieto Interactive Patient Education ?2016 [employer].Strep ThroatStrep throat is an infection of the [...] Document Reviewed: 10/29/2015Prieto Interactive Patient Education ?2016 [employer] [facility].Emergency MedicineUpper Respiratory Infection, AdultMost upper respiratory infections [...] Released: 12/30/2001 Document Revised: 11/20/2015 Document Reviewed: 10/11/2014Prieto Interactive Patient Education ?2016 [employer].Acute BronchitisBronchitis is inflammation of the airways [...] Document Reviewed: 12/27/2013Prieto Interactive Patient Education ?2016 [employer]><><><><><><><><><><>< ><><><><><><><><><><><><><> Patient Visit Summary JODI Jackson has been given the following list of patient education materials, prescriptions and follow-up instructions: DARVIN Whitten MORGAN A, have received the above patient education materials/instructions and have verbalized understanding: Date Time Patient Signature Date Time Provider Signature Normal [facility] ED Physician Noteson 018 ED Physician Notes Patient: NORIS BOSTON MRN: ([id number] Age: 22 years Sex: Female : 1995 Associated Diagnoses: None Author: Gabriel Hutchinson History of Present Illness I have introduced myself as the PA and informed the patient of the supervising/ collaborating physician who is available upon request. I have discussed the case with the ED physician who participated in the decisions regarding any therapeutic interventions. Physician: Dr. RadfordEwqrcs80-sbyz-icw white female with history of heart murmur [...] congestion and mild cough. She used numerous uyjk-xse-jqtacey medications and thought that she was getting [...] Upper Respiratory Infection, Adult, AA-Zippy's work release. ([id number]). Follow up with: ; [facility] Within Follow-up as needed This is a [...] Chief Complaint-Triage Fever, Cough/ST, Congestion . Normal [facility] ED Physician Notes PDF Normal [facility] XR Chest 2 Viewson 8 XR Chest 2 views STUDY: Chest two vie ws dated 10/10/2017 1:59 PM.COMPARISON: None.HISTORY: Cough. Fever. 3 days of symptoms. Back pain. Smoking history.FINDINGS: The heart and mediastinum are not enlarged. Vasculature is not increased. No acute consolidation, effusion or pneumothorax is identified.IMPRESSION: No acute cardiopulmonary disease identified. Immediate final results were provided per protocol.[place] thanks you for the opportunity to care for your patient. Workstation ID: [id number] - [id number] FINAL REPORT Dictated By: Marcos Dueñas MD 10/10/2017 14:01Assigned Physician: Marcos Dueñas MDReviewed and Electronically Signed By: Marcos Dueñas MD 10/10/2017 14:01Transcribed by: HELEN 10/10/2017 14:01Technologist: [facility] Normal [facility] BMPon 05-07-2017 Anion gap 3 molar conc 14 mmol/L Invalid Interpretation Code 10 - 20 mmol/L [facility] Calcium mass conc 9.0 mg/dL Invalid Interpretation Code 8.4 - 10.2 mg/dL [facility] Chloride molar conc 102 mmol/L Invalid Interpretation Code 98 - 108 mmol/L [facility] Creatinine mass conc 0.52 mg/dL Invalid Interpretation Code 0.4 - 1.1 mg/dL [facility] GFR/1.73 sq M predicted among non-blacks MDRD vol rate/area (S/P/Bld) The eGFR should be used for monitoring renal function only and not for medication dosing. Invalid Interpretation Code [facility] GFR/1.73 sq M.predicted CKD-EPI vol rate/area (S/P/Bld) 137 mL/min/1.73 m2 Invalid Interpretation Code >=[address] [facility] Glucose mass conc 88 mg/dL Invalid Interpretation Code 65 - 99 mg/dL [facility] HCO3 molar conc 27 mmol/L Invalid Interpretation Code 21 - 32 mmol/L [facility] Potassium molar conc 3.7 mmol/L Invalid Interpretation Code 3.5 - 5.1 mmol/L [facility] Sodium molar conc 139 mmol/L Invalid Interpretation Code 135 - 145 mmol/L [facility] Urea nitrogen mass conc 13 mg/dL Invalid Interpretation Code 8 - 25 mg/dL [facility] Urea nitrogen/Creatinine mass ratio 25.0 mg/mg High 10.0 - 20.[address] [facility] CBC Auto Differentialon 04-19 Basophils Auto #/vol (Bld) 0.02 K/mcL Invalid Interpretation Code 0.00 - 0.[address] [facility] Basophils/100 WBC Auto (Bld) 0.3 % Invalid Interpretation Code [facility] Eosinophils Auto #/vol (Bld) 0.06 K/mcL Invalid Interpretation Code 0.00 - 0.[address] [facility] Eosinophils/100 WBC Auto (Bld) 0.8 % Invalid Interpretation Code [facility] Erythrocyte distribution width Auto Entitic volume (RBC) 18.4 % High 11.6 - 14.8 % [facility] Hematocrit Auto Volume Fraction (Bld) 36.9 % Invalid Interpretation Code 36 - 46 % [facility] Hemoglobin mass conc (Bld) 11.4 g/dL Low 12 - 16 g/dL [facility] Immature granulocytes #/vol (Bld) 0.02 K/mcL Invalid Interpretation Code 0.00 - 0.[address] [facility] Immature granulocytes/100 WBC (Bld) 0.30 % Invalid Interpretation Code [facility] Comment on above: The IG parameter is the percentage of metamyelocytes, myelocytes, and promyelocytes. Lymphocytes Auto #/vol (Bld) 2.18 K/mcL Invalid Interpretation Code 0.90 - 4.[address] [facility] Lymphocytes/100 WBC Auto (Bld) 28.3 % Invalid Interpretation Code [facility] MCH Auto Entitic mass (RBC) 24.6 pg Low 26 - [address] [facility] MCHC Auto mass conc (RBC) 30.9 g/dL Low 31 - 37 g/dL [facility] MCV Auto Entitic volume (RBC) 79.7 fL Low 80 - [address] [facility] Monocytes Auto #/vol (Bld) 0.56 K/mcL Invalid Interpretation Code 0.30 - 0.[address] [facility] Monocytes/100 WBC Auto (Bld) 7.3 % Invalid Interpretation Code [facility] Neutrophils Auto #/vol (Bld) 4.85 K/mcL Invalid Interpretation Code 1.70 - 7.[address] [facility] Neutrophils/100 WBC Auto (Bld) 63.0 % Invalid Interpretation Code [facility] Nucleated RBC #/vol (Bld) 0.00 K/mcL Invalid Interpretation Code 0.00 - 0.[address] [facility] Nucleated RBC/100 WBC Ratio (Bld) 0.0 % Invalid Interpretation Code [facility] Platelet mean volume Auto Entitic volume (Bld) 11.3 fL Invalid Interpretation Code 9 - 15.[address] [facility] Platelets Auto #/vol (Bld) 277 K/mcL Invalid Interpretation Code 150 - [address] [facility] RBC Auto #/vol (Bld) 4.63 M/mcL Invalid Interpretation Code 4.00 - 5.[address] [facility] WBC Auto #/vol (Bld) 7.69 K/mcL Invalid Interpretation Code 4.50 - 11.[address] [facility] CBC w/ Diffon 05-07-2017 CBC w/ Diff The following orders were created for panel order CBC w/ Diff. Procedure Abnormality Status --------- ------ CBC Auto Differential[[id number]] Abnormal Final result Please view results for these tests on the individual orders. Invalid Interpretation Code [employer] Work Phone: Gold Topon 05-07-2017 Extra Tube Hold for add-ons. Invalid Interpretation Code [facility] Comment on above: Auto resulted. [place] Drawon 05-07-2017 [place] Draw The following orders were created for panel order [place] Draw. Procedure Abnormality Status --------- ------ Gold Top[[id number]] Final result Light Blue Top[[id number]] Final result [place] Top[[id number]] Final result [place] Top[[id number]] Final result Please view results for these tests on the individual orders. Invalid Interpretation Code [facility] Work Phone: Urinalysison 05-07-2017 Bacteria Auto Ql (U) None Seen Invalid Interpretation Code None Seen /hpf [facility] Bilirubin Ql (U) Negative Invalid Interpretation Code Negative [facility] Clarity Refractometry automated Nom (U) Clear Invalid Interpretation Code Clear [facility] Color Auto Nom (U) Yellow Invalid Interpretation Code Colorless, Yellow [facility] Epithelial cells.squamous Auto #/area (Urine sed) <1 Invalid Interpretation Code 0 - 4 /hpf [facility] Glucose Automated test strip mass conc (U) Negative Invalid Interpretation Code Negative mg/dL [facility] Hemoglobin Automated test strip Ql (U) Negative Invalid Interpretation Code Negative [facility] Interpretation and review of laboratory results Abnormal Invalid Interpretation Code [facility] Ketones mass conc (U) Negative Invalid Interpretation Code Negative mg/dL [facility] Leukocyte esterase Automated test strip Ql (U) Negative Invalid Interpretation Code Negative [facility] Mucus Auto #/area (Urine sed) Few Abnormal None Seen, Rare /lpf [facility] Nitrite Automated test strip Ql (U) Negative Invalid Interpretation Code Negative [facility] pH Test strip (U) 6.0 [pH] Invalid Interpretation Code 5.0 - 7.[address] [facility] Protein mass conc (U) 30 Abnormal Negative mg/dL [facility] Comment on above: False positive resul ts may occur in urines with large amounts of hemoglobin, pH greater than 8.0, contrast medium, or disinfectants including ammonium compounds. Specific gravity Automated test strip Relative Density (U) 1.021 1 Invalid Interpretation Code 1.005 - 1.[address] [facility] Urobilinogen Test strip Qn (U) <2.0 Invalid Interpretation Code <2.0 mg/dL [facility] WBC Auto #/area (Urine sed) 1 /hpf Invalid Interpretation Code 0 - [address] [facility] Urinalysis Microscopic examinat ion is performed on all urinalysis samples and only positive findings are reported. The test for blood on the chemical analytic portion of urinalysis may also be positive due to hemoglobinuria and myoglobinuria and if red blood cells are present they are quantified by microscopic examination. Invalid Interpretation Code [facility] Urine Pregnancyon 05-07-2017 HCG ( test) Ql (U) Negative Invalid Interpretation Code Negative [facility] Interpretation and review of laboratory results Normal Invalid Interpretation Code [facility] Vital Signs Date Time Vital Sign Value Performing Clinician Facility 12-27-2017 11:36-0400 BMI (Body Mass Index) 23.64 kg/m2 [facility] 12-27-2017 11:36-0400 Body Temperature 98.29 [degF] [facility] 12-27-2017 11:36-0400 BP Diastolic 83 mm[Hg] [facility] 12-27-2017 11:36-0400 BP Systolic 121 mm[Hg] [facility] 12-27-2017 11:36-0400 Height 162.6 cm [facility] 12-27-2017 11:36-0400 Pulse (Heart Rate) 84 /min [facility] 12-27-2017 11:36-0400 Pulse Oximetry 97 % [facility] 12-27-2017 11:36-0400 Respiratory Rate 12 /min [facility] 12-27-2017 11:36-0400 Weight 62.46 kg [facility] 05-08-2017 13:44-0400 BP Diastolic 71 mm[Hg] [facility] Work Phone: 05-08-2017 13:44-0400 BP Systolic 118 mm[Hg] [facility] Work Phone: 05-08-2017 13:44-0400 Pulse (Heart Rate) 68 /min [facility] Work Phone: 05-08-2017 13:44-0400 Pulse Oximetry 99 % [facility] Work Phone: 05-08-2017 13:44-0400 Respiratory Rate 18 /min [facility] Work Phone: 05-08-2017 10:49-0400 BMI (Body Mass Index) 23.17 kg/m2 [facility] [employer] Work Phone: 05-08-2017 10:49-0400 Body Temperature 98.29 [degF] [facility] [employer] Work Phone: 05-08-2017 10:49-0400 Height 162.6 cm [facility] [employer] Work Phone: 05-08-2017 10:49-0400 Weight 61.24 kg [facility] [employer] Work Phone: 05-07-2017 19:00-0400 BP Diastolic 62 mm[Hg] Henri Pulliam [employer] Work Phone: 05-07-2017 19:00-0400 BP Systolic 108 mm[Hg] Henri Pulliam [employer] Work Phone: 05-07-2017 19:00-0400 Pulse (Heart Rate) 63 /min Henri Pulliam [employer] Work Phone: 05-07-2017 19:00-0400 Respiratory Rate 16 /min Henri Pulliam [employer] Work Phone: 05-07-2017 16:14-0400 BMI (Body Mass Index) 22.86 kg/m2 Henri Pulliam [employer] Work Phone: 05-07-2017 16:14-0400 Body Temperature 98.8 [degF] Henri Pulliam [employer] Work Phone: 05-07-2017 16:14-0400 Height 162.6 cm Henri Pulliam [employer] Work Phone: 05-07-2017 16:14-0400 Pulse Oximetry 100 % Henri Pulliam [employer] Work Phone: 05-07-2017 16:14-0400 Weight 60.42 kg Henri Pulliam [employer] Work Phone: Encounters Encounter Date Encounter Type Care Provider Facility Start: 08-28-2023 Clinisync Result Encounter Jeri GARRETT Work Phone: [facility] Unsolicited Start: 08-28-2023 Clinisync Result Encounter Jeri GARRETT Work Phone: [facility] Unsolicited Start: 07-09-2021 End: 07-12-2021 ambulatory DARY BLACK [facility] Start: 12-27-2017 End: 12-27-2017 Ambulatory ROXANE SIMS [facility] Urgent [facility] [place] Start: 12-27-2017 End: 12-27-2017 Office/outpatient visit, est, level 3 Mari Ham Work Phone: [facility] Urgent [facility] Nathaniel Bullock Start: 11-21-2017 End: 11-21-2017 Emergency department patient visit No PCP Physician Facility:[facility] Start: 10-10-2017 End: 10-10-2017 Emergency department patient visit No PCP Physician Facility:[facility] Start: 05-08-2017 End: 05-08-2017 Emergency department patient visit ROXANE SIMS [facility] Start: 05-08-2017 End: 05-08-2017 Emergency department patient visit Solis French Work Phone: [facility] Emergency Department Comment on above: Trapezius muscle spa sm (Primary Dx) Start: 05-07-2017 End: 05-07-2017 Emergency department patient visit HENRIVno MCCORMICK ARRON [facility] Start: 05-07-2017 End: 05-07-2017 Emergency department patient visit Henri Pulliam Work Phone: [facility] Emergency Department Comment on above: Nonintractable heada cheryle, unspecified chronicity pattern, unspecified headache type (Primary Dx) Procedures Date Procedure Procedure Detail Performing Clinician Start: 08-28-2023 ALL CBC WITH AUTO DIFF Jeri GARRETT Work Phone: Plan of Treatment Date Care Activity Detail Author Start: 08-31-2023 End: 08-31-2023 Patient encounter procedure 08/31/2023 4:00 PM EST Routine [facility] [address] [place] [address] [place] [address] Timothy Bourgeois, DO [address] [place] [address] [place] [address] Third trimester [facility] Comment on above: Third trimester preg dinora Start: 03-20-2023 Influenza vaccination Influenz a Vaccine (#1) [facility] Start: 03-20-2018 Influenza vaccination SEQUENTI AL INFLUENZA VACCINE (Season Ended) [facility] Start: 03-20-2017 Influenza vaccination SEQUENTI AL INFLUENZA VACCINE (#1) [facility] Work Phone: Start: 2007 Vaccination for luciana n papillomavirus HPV VACCINES (1 of 3 - Female 3 Dose Series) [facility] Work Phone: Start: 1996 Adult depression screening assessment DEPRESSION SCREENING (PHQ9) [facility] Start: 1996 Screening for malign ant neoplasm of cervix PAP SMEAR [facility] Work Phone: Start: 1996 SUBSTANCE ABUSE SCRE ENING (AUDIT-C) SUBSTANCE ABUSE SCREENING (AUDIT-C) [facility] Start: 1996 Tetanus vaccination TETANUS EVERY 10 YR [facility] Work Phone: Streptococcus pyogen es [Presence] in Throat by Organism specific culture Strep A Culture, Throat Routine Sore throat Ordered: 12/27/2017 [facility] Immunizations Immunization Date Immunization Notes Care Provider Mateo francisco 05-08-2016 influenza, seasonal, injectable Henri Pulliam [facility] Work Phone: 05-08-2016 influenza virus vaccine, unspecified formulation Jeri GARRETT Work Phone: [facility] Healthcare Payers Date Payer Category Payer Unknown [id number] 2017 Unknown [id number] 2016 Unknown Social History Date Type Detail Facility Start: 12-27-2017 [facility] History of tobacco use Cigarette Smoker [facility] Work Phone: Start: 12-27-2017 Cigarettes smoked current (pack per day) - Reported [facility] Sex Assigned At Not on file [facility] Work Phone: Start: 05-07-2017 End: 05-08-2017 Tobacco smoking status NHIS Former smoker [facility] Work Phone: Tobacco smoking stat [facility] Tobacco smoking consumption unknown [facility] Start: 02-17-2023 [facility] Start: 1996 Sex Assigned At Female [facility] Start: 04-02-2023 Gender identity Identifies as female gender (finding) [facility] Start: 04-02-2023 Sexual orientation Bisexual (finding ) [facility] Healthcare Instructions * Patient Instructions - Mari Ham [...] 1 cup of warm water. Take an cqkd-wpg-qogkzka pain medicine, such as acetaminophen (Tylenol), ibuprofen (Advil, Motrin),or naproxen (Aleve). Read and follow all instructions on the label. Be careful when taking yyhu-jbv-dxkjxif cold or flu medicines and Tylenol at [...] soup, may help decrease throat pain. Use afxi-adm-lyogrif throat lozenges to soothe pain. Regular cough [...] Log into your personal health record on [email or web address] and enter U420 in the Education box to learn more about Sore Throat: Care Instructions. Current as of: November 28, 2016 Content Version: .20054696-0076 [employer]. Care instructions adapted under license by your healthcare professional. If you have questions about a medical condition or this instruction, always ask your healthcare professional. [employer] disclaims any warranty or liability for your [...] rest if you feel tired. Take an osyk-inl-haksmig pain medicine if needed, such as acetaminophen (Tylenol), ibuprofen (Advil, Motrin), or naproxen (Aleve). Read and follow all instructions on the label. Be careful when taking tfxy-xoj-cfxfcor cold or flu medicines and Tylenol at [...] Log into your personal health record on [email or web address] and enter L906 in the Education box to learn more about Viral Infections: Care Instructions. Current as of: June 06, 2017 Content Version: .20058324-8307 [employer]. Care instructions adapted under license by your healthcare professional. If you have questions about a medical condition or this instruction, always ask your healthcare professional. [employer] disclaims any warranty or liability for your use of this information. in this encounter Assessments Diagnosis Sore throat - Primary Acute pharyngitis Viral syndrome Unspecified viral infection, in conditions classified elsewhere and of unspecified site Diagnosis Nonintractable headache, uns pecified chronicity pattern, unspecified headache type - Primary Diagnosis Trapezius muscle spasm - Renetta zuniga Summary Purpose Family History No Family History [...] your doctor if you can take an czzn-glb-aypdnbw medicine. Be careful not to take pain [...] Log into your personal health record on [email or web address] and enter M271 in the Education box to learn more about Headache: Care Instructions. Current as of: May 02, 2016 Content Version: 11.2 3350-1250 [employer]. Care instructions adapted under license by your healthcare professional. If you have questions about a medical condition or this instruction, always ask your healthcare professional. [employer] disclaims any warranty or liability for your use of this information. in this encounter Additional Source Comments INFORMATION SOURCE (unrecogn ized section and content) DATE CREATED AUTHOR 01/05/2018 [facility] DATE CREATED AUTHOR AUTHOR'S ORGANIZ ATION 01/12/2018 [facility] DATE CREATED AUTHOR AUTHOR'S ORGANIZ ATION 02/02/2018 [facility] DATE CREATED AUTHOR AUTHOR'S ORGANIZ ATION 07/12/2021 [facility] Reason for Visit (unrecogniz ed section and content) Reason Comments Migraine Reason Comments Neck Pain ED Attestation Note - Henri Pulliam MD - 05/07/2017 5:36 PM EDTED Provider Notes - Alyssa Tellez, DO - 05/07/2017 5:16 PM EDTED Notes - Javid Summers RN - 05/07/2017 4:58 PM EDT Miscellaneous Notes (unrecog nized section and content) Formatting of this note may be different from the original. I personally interviewed the patient. I personally examined the patient. I discussed the patient with SUPERVISOR INDUSTRIAL GARMENT/PA. I agree with the SUPERVISOR INDUSTRIAL GARMENT/PA treatment plan. I agree with the SUPERVISOR INDUSTRIAL GARMENT/PA plan of care. I agree with the SUPERVISOR INDUSTRIAL GARMENT/PA dispo as documented. The patient has been [...] Procedure Abnormality Status --------- ------ CBC Auto Differential[[id number]] Abnormal Final result Please view results for these tests on the individual orders. RAINBOW DRAW Narrative: The following orders were created for panel order [place] Draw. Procedure Abnormality Status --------- ------ Gold Top[[id number]] In process Light Blue Top[[id number]] In process Wright Top[[id number]] In process [place] Top[[id number]] In process Please view results for these [...] note may be different from the original. [facility] ED Resident Note: NAME: Jodi Boston 22 y.o. CSN: [id number] PCP: Roxane Beasley DO History: Chief Complaint: [...] PMSx: Past Surgical History: Procedure Laterality Date [place] Debeader WISDOM TOOTH EXTRACTION FAM. 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 RAINBOW DRAW Narrative: The following orders were created for panel order [place] Draw. Procedure Abnormality Status --------- ------ Gold Top[[id number]] In process Light Blue Top[[id number]] In process Wright Top[[id number]] In process [place] Top[[id number]] In process Please view results for these [...] injection 25 mg (25 mg Intravenous Given 10/19/17 1729) This note was generated by V[employer] voice recognition software and as a result grammatical or spelling errors may occur using this program. Clinical Impression: SNOMED CT(R) 1. Nonintractable headache, unspecified chronicity pattern, unspecified headache type HEADACHE Disposition: Patient is being discharged to home New Prescriptions No medications on file Alyssa Tellez DO ED Resident Physician [facility] Emergency Department (Please note that portions of this note have been completed with a voice recognition software. Efforts were made to correct any errors, but occasionally words are mis-transcribed.) Alyssa Tellez DO Resident 05/07/17 9652 SECONDARY ASSESSMENT - Breathing regular and unlabored, [...] wall movement. Circulation: Skin warm and dry, INSURANCE LOSS CONTROL SURVEYOR < 3 seconds, 2+ Bilateral radial pulses. [...] to the room to provide pt with DC/radiology administrator/care instructions. 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 All imaging has been read by a Radiologist. Eleno Thao PA-C 05/08/17 1315 Pt presents to the ED c/o of severe neck pain. Pt was tx at [facility] yesterday for migraine at which time her [...] night, pt was seen in ED at [facility] yesterday treated for migraine headache, denies headache [...] BE BASED ON THE PRIMARY CLINICAL RECORDS. [employer] provides no warranty or guarantee of the accuracy or completeness of information in this document.
[2023-09-29 16:38] LABS: Basophils Percent Auto 0.2 % (0.2-2.0); Eosinophils Absolute Auto 0.1 10^3/uL (0.0-0.7); Hematocrit 36.7 % (36.0-48.0); Hemoglobin 11.2 g/dL (12.0-16.0); Immature Granulocytes Abs Auto 0.08 10^3/uL (0.00-0.03); Lymphocytes Absolute Auto 1.4 10^3/uL (1.2-3.8); Lymphocytes Percent Auto 16.9 % (20.5-60.0); Mean Corpuscular HGB Conc 30.5 g/dL (29.9-35.2); Mean Corpuscular Hemoglobin 27.3 pg (26.7-34.0); Mean Corpuscular Volume 89.3 fL (81.0-99.0); Mean Platelet Volume 10.8 fL (9.5-13.5); Monocytes Absolute Auto 0.6 10^3/uL (0.3-0.8); Monocytes Percent Auto 7.8 % (1.7-12.0); Neutrophils Percent Auto 73.1 % (43.0-75.0); Platelet Count 146 10^3/uL (150-450); Red Blood Count 4.11 10^6/uL (4.20-5.40); Red Cell Distribution Width 21.8 % (11.0-15.0); White Blood Count 8.2 10^3/uL (4.0-11.0)
== END 2023-09-29 16:28 | disposition home or self-care (01) ==
LOC: LAB 16:28
PROVIDERS: Visit Provider Obstetrics & Gynecology
DX: D64.9 Anemia, unspecified (principal)
CPT/HCPCS: 36415; 85025

== ENCOUNTER 2023-10-12 21:58 | Outpatient (REF) | payer OTHER, SELFPAY ==
--- OUTSIDE RECORDS SUMMARY | 2023-10-12 22:02 | XMS_ITS | CCD ---
Author Organization [facility] Care Team Providers Care Dustless Operator Name Role Phone Ramos Roxane Sims Unavailable BEASLEY ROXANE DWYERECCA Unavailable Unavail able MARI HAM Unavailable Unavailable HENRI PULLIAM Unavailable Unavailabl e RAMOS, ROXANE DWYERECCA Unavailable Unavail able HENRI PULLIAM Unavailable Unavailabl e RAMOS, ROXANE LEVI Unavailable Unavail able SOLIS FRENCH [...] Propensity to adverse reactions 08-26-19 19 Rash [facility] Healthcare Work Phone: (1 source) Prochlorperazine Drug Allergy 05-07-20 18 [facility] Medications Current Medications Medication Drug Class(es) Dates [...] for constipation 30 capsule 5 08/05/2023 Active [id number] 0.3 ml EPINEPHrine 1 mg/ml auto-injector (4 [...] parts viscous lidocaine 2%, diphenhydramine 12.5mg/5mL, maalox 803dz-776fl-41lq/5mL (1 source) Start: 018 End: 018 magic mouthwash susp equal parts viscous lidocaine 2%, diphenhydramine 12.5mg/5mL, maalox 224fx-360qg-60hv/5mL Swish and spit 5 mL every 6 [...] morning. 360 capsule 0 08/05/2023 08/04/2024 Active Jcwtfv-BbZbf-XiOmk-FA-C A-[place] (Complete Annette DHA) 29-1-200 & 200 MG misc (1 source) Start: 023 Xpfuki-XmOck-UaCxh-FA- CA-[place] (Complete DHA) 29-1-200 & 200 MG misc TAKE [...] injection 30 mg 30 mg, Intravenous, Once, Thu05/08/17 at 1150, For 1 dose Given 05/08/2017 11:50 EDT 30 mg Start: 05-07-2017 End: 05-07-2017 ketorolac (TORADOL) injectio n 15 mg 15 mg, Intravenous, Once, Radha 10/19/17 at 1720, For 1 dose Given 05/07/2017 [...] WITH AUTO DIFFon BASOPHILS ABSOLUTE AUTO 0.0 [facility] Basophils/100 WBC (Bld) 0.1 % Low 0.2 - 2.0 % [facility] Eosinophils/100 WBC (Bld) 0.4 % Low 0.9 - 7.0 % [facility] Erythrocyte distribution width (RBC) [Ratio] 13.4 % 11.0 - 15.0 % [facility] Hematocrit (Bld) [Volume fraction] 29.5 % Low 36.0 - 48.0 % [facility] Hemoglobin (Bld) [Mass/Vol] 9.2 g/dL Low 12.0 - 16.0 g/dL [facility] IMMATURE GRANULOCYTES ABS AUTO 0.08 High [facility] Immature granulocytes/100 WBC (Bld) 0.8 % High 0.0 - 0.5 % [facility] Interpretation and review of laboratory results Abnormal [facility] LYMPHOCYTES ABSOLUTE AUTO 1.8 [facility] Lymphocytes/100 WBC (Bld) 19.1 % Low 20.5 - 60.0 % [facility] MCH (RBC) [Entitic mass] 26.5 pg Low 26.7 - 34.0 pg [facility] MCHC (RBC) [Mass/Vol] 31.2 g/dL 29.9 - 35.2 g/dL [facility] MCV (RBC) [Entitic vol] 85.0 fL 81.0 - 99.0 fL [facility] MONOCYTES ABSOLUTE AUTO 0.8 [facility] Monocytes/100 WBC (Bld) 8.0 % 1.7 - 12.0 % [facility] NEUTROPHILS ABSOLUTE AUTO 6.9 High [facility] Neutrophils/100 WBC (Bld) 71.6 % 43.0 - 75.0 % [facility] Platelet mean volume (Bld) [Entitic vol] 10.5 fL 9.5 - 13.5 fL [facility] TB EO # 0.0 [facility] TB PLT 192 [facility] TB RBC 3.[address] [facility] WBC 9.6 [facility] XR CHEST (2 VW)on 07-09-2021 XR CHEST [...] Hamzah Kaba MD 07/09/21 Final result Normal [facility] POC Rapid Strep Aon 12-28-19 Interpretation and review of laboratory results Normal Invalid Interpretation Code [facility] Streptococcus pyogenes antigen presence Negative Invalid Interpretation Code Negative [facility] Basic Metabolic Panelon 05-0 Anion gap 8.0 mmol/L Normal 6.0-18.0 [facility] Comment on above: Result Comment: PLEA SE NOTE:The calculated Anion Gap(AGAP) does not include Potassium. Performed By: #### 6 9405-9, 81254-4b4, 3040-3, 67287-7, 83258-8 ####[facility], [address] [place], [place]. Calcium 9.3 mg/dL Normal 8.9-10.3 [facility] Comment on above: Performed By: #### 6 9405-9, 85224-4w1, 3040-3, 23868-3, 11828- 3 ####[facility], [address] [place], [place]. Chloride 106 mmol/L Normal 98-107 [facility] Comment on above: Performed By: #### 6 9405-9, 06870-7x9, 3040-3, 99503-1, 22504- 3 ####[facility], [address] CO2 25 mmol/L Normal 22-32 [facility] Comment on above: Performed By: #### 6 9405-9, 95101-7r7, 3040-3, 54816-9, 36096- 3 ####[facility], [address] Creatinine 0.65 mg/dL Low 0.66-1.30 [facility] Comment on above: Performed By: #### 6 9405-9, 27663-4t8, 3040-3, 71871-4, 93895- 3 ####[facility], [address] [place], [place]. Glucose mass conc 88 mg/dL Normal 70-110 [facility] Comment on above: Performed By: #### 6 9405-9, 22032-0e4, 3040-3, 59184-9, 18418- 3 ####[facility], [address]. Potassium molar conc 3.5 mmol/L Low 3.6-5.1 [facility] Comment on above: Performed By: #### 6 9405-9, 29120-2e0, 3040-3, 61007-1, 64513- 3 ####[facility], [address] Sodium 139 mmol/L Normal 136-145 [facility] Comment on above: Performed By: #### 6 9405-9, 52113-7x8, 3040-3, 84188-3, 97362- 3 ####[facility], [address] [place], [place]. Urea nitrogen mass conc (BldV) 10 mg/dL Normal 8-20 [facility] Comment on above: Performed By: #### 6 9405-9, 40561-4w9, 3040-3, 35038-9, 02930- 3 ####[facility], [address] [place] [address]. CBCon 11-21-2017 Erythrocyte distribution width Entitic volume (RBC) 20.1 % High 11.0-14.8 [facility] Comment on above: Performed By: #### 2 4317-0 ####[facility], [address] [place] [address]. Erythrocytes (RBC) 4.57 million/mcL Normal 3.80-5.10 [facility] Comment on above: Performed By: #### 2 7-0 ####[facility], [address] [place] [address]. Hematocrit (HCT) 34.8 % Low 35.0-45.0 [facility] Comment on above: Performed By: #### 2 7-0 ####[facility], [address] [place] [address]. Hemoglobin mass conc (Bld) 11.3 g/dL Low 12.0-16.0 [facility] Comment on above: Performed By: #### 2 4317-0 ####[facility], [address] [place] [address]. MCH 24.8 Picograms Low 27.0-34.0 [facility] Comment on above: Performed By: #### 2 4317-0 ####[facility], [address] [place] [address]. MCHC mass conc (RBC) 32.6 g/dL Normal 32.0-36.0 [facility] Comment on above: Performed By: #### 2 4317-0 ####[facility], [address] [place], [place]. MCV 76.1 fL Low 80.0-97.0 [facility] Comment on above: Performed By: #### 2 4317-0 ####[facility], [address] [place], [place]. Platelet mean volume Entitic volume (Bld) 8.9 FL Normal 6.2-12.1 [facility] Comment on above: Performed By: #### 2 4317-0 ####[facility], [address] [place], [place]. Platelets 251 thou/mcL Normal 142-424 [facility] Comment on above: Performed By: #### 2 4317-0 ####[facility], [address]. WBC (Leukocytes) 6.4 thou/mcL Normal 4.6-10.2 [facility] Comment on above: Performed By: #### 2 4317-0 ####[facility], [address] [facility] [place] CT Abd and Pelvis w Contrast [...] emergency department following dictation on 11/21/2017 3:41 AM.[place] thanks you for the opportunity to care for your patient. Workstation ID: [id number] - [id number] FINAL REPORT Dictated By: Pérez Queen MD 11/21/2017 03:38Assigned Physician: Pérez Queen MDReviewed and Electronically Signed By: Pérez Queen MD 11/21/2017 03:42Transcribed by: HELEN 11/21/2017 03:38Technologist: YRIS Normal [facility] Culture Urine + Susceptibili tyon 11-21-2017 Urine culture, bacteria [facility] MicrobiologyPROCEDURE: Culture Urine + SusceptibilitySOURCE: Urine BODY SITE:COLLECTED DATE/TIME: 11/21/2017 01:41 EDT RECEIVED DATE/TIME: 11/21/2017 01:41 EDTSTART DATE/TIME: 11/21/2017 01:41 EDT FREE TEXT SOURCE: URINEINTERFACED REPORTSFinal Report []Verified Date/Time/Personnel: 11/22/2017 12:17 EDT CONTRIBUTOR_SYSTEM, CO_PNORGANISMS USUALLY ASSOCIATED WITH VAGINAL,URETHRAL,AND/OR SKIN CONTAMINATION PRESENT. [facility] Comment on above: Performed By: #### 5 8077-9, 00168-8 ####[facility], [address] [place], [place].#### 630-4 ####[facility] [address] [place], [place] Depart Summaryon 11-21-2017 Depart Summary EMERGENCY DEPARTMENT DISCHARGE SUMMARYPATIENT NAME:JODI BOSTON MRN: (COL)-[id number]: 22 Years SEX: Female PHONE:[phone]: 11/20/2017 10:57 PM : 1995 ATTENDING PHYSICIAN:Ernestine Mckeon MD PCP: Physician, No PCP CHIEF COMPLAINT: abdominal pain Allergies Compazine (Anger)Problems Active No Chronic Problems DISCHARGE DIAGNOSIS: DISCHARGE INSTRUCTIONS: Work Release (CO-S) (CUSTOM); Abdominal Pain, Adult ED PHYSICIAN DOCUMENTATION: History of Present Dunoada94-pqrs-ehk female with no significant medical history presents [...] air?Temperature:??98 .3 ?(11/20 22:59)?Pulse:??71 ?(11/21 01:34)?Respiration:??18 ?(11/21 01:34)?BP:??108/70 ?(05/05 01:34)?Pulse Ox:??99 ?(11/21 00:34)?Oxygen Delivery:??Room air ?(11/21 00:)?Pain Score:??4 ?(11/20 22:59)???PULSE [...] Result(s): Date Order Results 11/20/2017 23:06 Specific Dewitt Urine POCT N 1.030 11/20/2017 23:06 pH Urine POCT N 5 11/20/2017 23:06 Urobilinogen Urine POCT N 0 mg/dL 11/21/2017 01:41 Appearance Urine A TURBID 11/21/2017 01:41 Specific Dewitt Urine H 1.032 11/21/2017 01:41 Blood Urine [...] any generalized worsening of your condition. Normal [facility] ED Pat Naa 11-21-2017 ED [place] [address] [facility] Department Discharge Instructions JODI BOSTON , Please [...] [facility] [facility] Name JODI BOSTON MRN (COL)-[id number] PLEASE READ THE FOLLOWING REGARDING YOUR MEDICATIONS [...] doses are changed, or new medications (including pdki-tug-mzozawl products) are added. If you have any [...] TAKE UNTIL YOU TALK TO YOUR DOCTORNone [place] [id number] [facility] Department Discharge Instructions Name: JODI BOSTON Current Date: 11/21/2017 03:50:01 : 1995 12:00 PM Primary Physician: Physician, No PCP We would like to thank you for choosing [facility] for your emergency medical needs. We examined [...] health of those around you. Call the [place] [employer] at 2-870-BQXX-[place] or the [place] [employer] at 2-864-OYO-2384 for more information.High blood pressure: Your screening blood pressure today was 108 mm Hg / . Hypertension (high blood pressure) is blood pressure over 120/80. People with hypertension should contact their primary care provider within 30 days to follow up. Check your patient portal for additional blood pressure information.Immunizations:I mmunization is a way to protect against deadly infections. Discuss this with your child's anthropological linguist, or Public Health Department. Your family practice doctor can determine if you need pneumonia or flu vaccine. The [facility] can be reached at .Domestic Violence:If you [...] suicide hotline, anytime day or night, at 2-600-877-MJXZ. Pharmacy Information:Below is a list of 24 hour pharmacies that we are aware of. We suggest that you call the specific pharmacy for their hours before traveling to a location. Hours may vary on holidays. [facility] [address] [address] [phone] [address] [phone] [address] [phone] [place] [address] [phone] [place] [address] [phone] [place] [place] [address] [phone] [place] [address] [phone] Take all medications as directed. If you need prescription assistance, contact the following agencies:?? [facility] for Prescription Assistance at or www.Pili Pop.org?? [facility] Rx at or www.Fractyl Laboratoriesrx.org?? [employer] is a site with many valuable coupons Patient Education Materials OJDI BOSTON has been given the following patient [...] alleviate any discomfort you are experiencing:???Only take aijv-evy-mjmywbn or prescription medicines as directed by your [...] Document Reviewed: 03/15/2014[employer] Patient Education ?2016 [employer]><><><><><><><><><><>< ><><><><><><><><><><><>< ><> Patient Visit Summary Signature JODI BOSTON has been given the following list of patient education materials, prescriptions and follow-up instructions: ETJ Whitten MORGAN A, have received the above patient education materials/instructions and have verbalized understanding: Date Time Patient Signature Date Time Provider Signature Normal [facility] ED Physician Noteson 018 ED Physician Notes Chief Complaint abdo pavel painED Assigned Provider/Time Time Seen: Ernestine Mckeon [...] Pulse: 71 (11/21 01:34) Respiration: 18 (11/21 00:34) BP: 108/70 (11/21 01:34) Pulse Ox: 99 [...] FINAL DIAGNOSIS: [Abdominal Pain ] SCRIBE ATTESTATION: IMoriah, am serving as a scribe to document services personally performed by Dr. Mckeon based on the patient's responses to questions from the provider and the provider's statement to me. This chart accurately reflects the work and decisions made by me.Problem List/Past Medical History Ongoing No chronic problems Historical No qualifying dataProcedure/Surgical History [place] tooth.Medications Home No active home medications ED [...] department following dictation on 11/21/2017 3:41 AM. [place] thanks you for the opportunity to care for your patient. Workstation ID: [id number] - [id number] ORDERS PLACED: Laboratory: Laboratory Urinalysis Manual POCT (CO) Manjeet Hair MD November 20, 2017 23:01 Completed Urine Test POCT (CO) Manjeet Hair MD November 20, 2017 23:01 Completed CBC Ernestine Mckeon MD November 21, 2017 00:59 Completed BMP (Basic Metabolic Panel) Ernestine Mckeno MD November 21, 2017 00:59 Completed Hepatic [...] MD November 21, 2017 00:59 Completed Normal [facility] ED Physician Notes PDF Normal [facility] GFRaaon 11-21-2017 eGFR (black) mL/min/{1.73_m2} Normal [facility] Comment on above: Result Comment: The MDRD equation has not been validated for those over 70 years, women, patients with serious co-morbid conditions, or with extremes of bodysize, muscle mass of nutritional status. Performed By: #### 6 9405-9, 35752-8r6, 3040-3, 03535-7, 98805-2 ####[facility], [facility] [place], [place]. GFRbbon 11-21-2017 eGFR (non-black) mL/min/{1.73_m2} Normal [facility] Comment on above: Performed By: #### 6 9405-9, 70760-6l9, 3040-3, 43210-8, 73937- 3 ####[facility], [address], [place]. Hepatic Function Panelon Alanine aminotransferase (ALT) 15 Units/L Normal 14-63 [facility] Comment on above: Performed By: #### 6 9405-9, 26985-1q6, 3040-3, 06100-2, 50374- 3 ####[facility], [address], [place]. Albumin 4.2 g/dL Normal 3.5-4.8 [facility] Comment on above: Performed By: #### 6 9405-9, 70010-8d2, 3040-3, 30011-8, 91876- 3 ####[facility], [address] [place], [place]. Alkaline phosphatase (ALP) 36 Units/L Normal 32-91 [facility] Comment on above: Performed By: #### 6 9405-9, 29836-8z7, 3040-3, 05137-3, 06084- 3 ####[facility], [address] [place], [place]. Aspartate aminotransferase (AST) 19 Units/L Normal 15-41 [facility] Comment on above: Performed By: #### 6 9405-9, 92475-9x0, 3040-3, 08932-9, 92677- 3 ####[facility], [address] [place], [place]. Bilirubin (direct) 0.1 mg/dL Normal 0.1-0.5 [facility] Comment on above: Performed By: #### 6 9405-9, 72707-9b1, 3040-3, 59616-8, 57315- 3 ####[facility], [address] [place], [place]. Bilirubin (total) 0.6 mg/dL Normal 0.3-1.2 [facility] Comment on above: Performed By: #### 6 9405-9, 55423-9r4, 3040-3, 39572-9, 92118- 3 ####[facility], [address], [place]. Bilirubin.indirect mass conc 0.5 mg/dL Normal 0.0-1.0 [facility] Comment on above: Performed By: #### 6 9405-9, 36729-4s1, 3040-3, 19074-4, 82447- 3 ####[facility], [address] [place], [place]. Protein 6.9 g/dL Normal 6.1-7.9 [facility] Comment on above: Performed By: #### 6 9405-9, 83341-0p9, 3040-3, 68190-9, 88014- 3 ####[facility], [address] [place], [place]. Lipaseon 11-21-2017 Lipase 21 Units/L Low 22-51 [facility] Comment on above: Performed By: #### 6 9405-9, 87978-6e6, 3040-3, 35672-3, 32555- 3 ####[facility], [address] [place], [place]. Urinalysis Microscopicon Urine, amorphous crystals presence in sediment FEW Abnormal NONE/HPF [facility] Comment on above: Performed By: #### 5 8077-9, 50570-4 ####[facility], [address] [place], [place].#### 630-4 ####[facility] [address] [place], [place] Urine, bacteria in sediment FEW Abnormal NONE/HPF [facility] Comment on above: Performed By: #### 5 8077-9, 63878-5 ####[facility], [address] [place], [place].#### 630-4 ####[place] [address] [place], [place] Urine, erythrocytes in sediment by area 6 /[HPF] High 0-5 [facility] Comment on above: Performed By: #### 5 8077-9, 83751-1 ####[facility], [address] [facility].#### 630-4 ####[place] [address] [place], [place] Urine, mucus presence in sediment MANY Abnormal NONE/LPF [facility] Comment on above: Performed By: #### 5 8077-9, 97999-9 ####[facility], [address] [place], [place] [address], [place].#### 630-4 ####[address] Urine, squamous cells in sediment MANY Abnormal FEW/LPF [facility] Comment on above: Performed By: #### 5 8077-9, 41134-4 ####[facility], [address] [place], [place] [address], [place].#### 630-4 ####[address] WBC Urine 6 /hpf High 0-5 [facility] Comment on above: Performed By: #### 5 8077-9, 12255-9 ####[facility], [address] [place], [place] [address], [place].#### 630-4 ####[address] Urinalysis with Microscopic Automatic with Reflexon 11-21-2017 Bilirubin Test strip mass conc (U) Negative Normal NEGATIVE [facility] Comment on above: Performed By: #### 5 8077-9, 26375-7 ####[facility], [address].#### 630-4 ####[address],[place] Glucose Test strip mass conc (U) NORMAL Normal NORMAL [facility] Comment on above: Performed By: #### 5 8077-9, 27549-7 ####[facility], [address] [facility].#### 630-4 ####[place] [address] [place], [place] Ketones Test strip mass conc (U) 80MG/DL Abnormal NEGATIVE [facility] Comment on above: Performed By: #### 5 8077-9, 14455-0 ####[facility], [address] [facility].#### 630-4 ####[address] Nitrite Test strip mass conc (U) Negative Normal NEGATIVE [facility] Comment on above: Performed By: #### 5 8077-, 49861-5 ####[facility], [address] [place], [place] [address]E.[place], [place].#### 630-4 ####[place] [address] [place], [place] Urine, appearance TURBID Abnormal CLEAR [facility] Comment on above: Performed By: #### 5 8077-9, 13677-8 ####[facility], [address] [place], [place] [address]E.[place], [place].#### 630-4 ####[place] [address] [place], [place] Urine, color TELLO Normal YELLOW [facility] Comment on above: Performed By: #### 5 8077-9, 32442-8 ####[facility], [address].#### 630-4 ####[place] [address] [place], [place] Urine, hemoglobin presence 10/UL Abnormal NEGATIVE [facility] Comment on above: Performed By: #### 5 8077-9, 60664-5 ####[facility], [address] [place], [place].#### 630-4 ####[place] [address] [place], [place] Urine, leukocyte esterase presence 25/UL Abnormal NEGATIVE [facility] Comment on above: Performed By: #### 5 8077-9, 19335-8 ####[facility], [address] [facility] [place].#### 630-4 ####[place] [address] [place], [place] Urine, pH 5.0 [pH] Normal 4.5-8.0 [facility] Comment on above: Performed By: #### 5 8077-9, 54768-5 ####[facility], [address] [place] [address].#### 630-4 ####[address] Urine, protein 100 mg/dL Abnormal NEGATIVE [facility] Comment on above: Performed By: #### 5 8077-9, 09379-0 ####[facility], [address] [place] [address].#### 630-4 ####[address] Urine, specific gravity 1.032 High 1.002-1.030 [facility] Comment on above: Performed By: #### 5 8077-9, 14646-4 ####[facility], [address] [facility] [place].#### 630-4 ####[place] [address] [place], [place] Urobilinogen Test strip mass conc (U) NORMAL Normal NORMAL [facility] Comment on above: Performed By: #### 5 8077-9, 81307-5 ####[facility], [address] [place].#### 630-4 ####[facility] [address] [place], [place] Depart Summaryon 10-10-2017 Depart Summary EMERGENCY DEPARTMENT DISCHARGE SUMMARYPATIENT NAME:JODI BOSTON MRN: -[id number]: 22 Years SEX: Female PHONE:[phone]: 10/10/2017 1:18 PM : 1995 ATTENDING PHYSICIAN:Yaneth Radford MD PCP: Physician, No PCP CHIEF COMPLAINT: Fever, Cough/ST, Congestion Allergies Compazine (Anger)Problems Active No Chronic Problems DISCHARGE DIAGNOSIS: DISCHARGE INSTRUCTIONS: [employer] work release. ([id number]); Upper Respiratory Infection, Adult; Acute Bronchitis; Pharyngitis; Strep Throat; Sinusitis, Adult ED PHYSICIAN DOCUMENTATION: History of Present Illness I have introduced myself as the PA and informed the patient of the supervising/ collaborating physician who is available upon request. I have discussed the case with the ED physician who participated in the decisions regarding any therapeutic interventions. Physician: Dr. RadfordHvcjmx78-euzt-yrj white female with history of heart murmur [...] congestion and mild cough. She used numerous lxzf-ial-fgtdqxf medications and thought that she was getting [...] FOLLOW UP:FOLLOW-UP APPOINTMENTS: Provider: Specialty: Address: Date: [facility] ([facility]) [address] [facility] [address] (4) Follow-up as needed Comment: This is a [...] be significantly worsening instead of improving. Normal [facility] ED Pat Eduon 10-10-2017 ED Pat Edu [place] [id number] [facility] Discharge Instructions JODI BOSTON , Please provide this information to your Primary Care/Specialist Name : JODI BOSTON Current Date : 10/10/2017 14:43:31DOB : 1995 12:00 PM Primary Care Physician: Physician, [place] PCP Diagnosis : Follow-Up Instructions:JODI BOSTON has been given these follow-up instructions: FOLLOW-UP APPOINTMENTS: Provider: Specialty: Address: Date: [facility] ([facility]3] ([facility]) [address] [facility] [address] (2) Follow-up as needed Comment: This is [...] and Patient Education(s) : Keiry's work release. ([id number]); Upper Respiratory Infection, Adult; Acute Bronchitis; Pharyngitis; Strep Throat; Sinusitis, Adult EMERGENCY SERVICES MEDICATION LISTLista de Medicaciones de los Servicios de Emergencia Name JODI BOSTON MRN ([facility])-[id number] PLEASE READ THE FOLLOWING REGARDING YOUR MEDICATIONS [...] doses are changed, or new medications (including ktbl-hkl-umqbbro products) are added. If you have any [...] TAKE UNTIL YOU TALK TO YOUR DOCTORNone [place] [address] [facility] Department Discharge Instructions Name: TEJ JODI Smith Current Date: 10/10/2017 14:43:31 : 1995 12:00 PM Primary Physician: Physician, No PCP We would like to thank you for choosing [facility] for your emergency medical needs. We examined [...] health of those around you. Call the [place] [employer] at 7-860-OSBV-USA or the [place] [employer] at 2-189-ZAE-1203 for more information.High blood pressure: Your screening blood pressure today was 115 mm Hg / . Hypertension (high blood pressure) is blood pressure over 120/80. People with hypertension should contact their primary care provider within 30 days to follow up. Check your patient portal for additional blood pressure information.Immunizations:I mmunization is a way to protect against deadly infections. Discuss this with your child's anthropological linguist, or Public Health Department. Your family practice doctor can determine if you need pneumonia or flu vaccine. [facility] Department can be reached at .Domestic [...] suicide hotline, anytime day or night, at 1-026-793-XDOS. Pharmacy Information:Below is a list of 24 hour pharmacies that we are aware of. We suggest that you call the specific pharmacy for their hours before traveling to a location. Hours may vary on holidays. [facility] [place] [id number] [place] [address] [phone] [place] [address] [phone] [place] [address] [phone] [place] [address] [phone] [place] [address] [phone] [place] [address] [phone] [place] [address] [phone] Take all medications as directed. If you need prescription assistance, contact the following agencies:?? Partnership for Prescription Assistance at or www.EntomoPharmx.org?? [facility] Best Rx at or www.Fractyl Laboratoriesrx.org?? www.Extended Stay AmericaRx.Yumit is a site with many valuable coupons Patient Education Materials JODI BOSTON has been given the following patient education materials: [facility] [address] [place], [place] [address]Phone: Nhlh Release FormThis notice verifies that your employee [...] Released: 07/06/2006 Document Revised: 07/27/2015 Document Reviewed: 07/20/2012Xenaevier Interactive Patient Education ?2016 [employer].ENTPharyngitisPharyngit is is redness, pain, and swelling (inflammation) [...] urine clear or pale yellow. ?Only take ibue-xvu-tpiybze or prescription medicines as directed by your [...] Document Reviewed: 03/13/2014Prieto Interactive Patient Education ?2016 [employer].Strep ThroatStrep throat is an infection of the [...] Released: 07/03/2001 Document Revised: 07/27/2015 Document Reviewed: 10/29/2015Xenaevcarli Interactive Patient Education ?2016 [employer] [facility].Emergency MedicineUpper Respiratory Infection, AdultMost upper respiratory infections [...] Document Reviewed: 10/11/2014Prieto Interactive Patient Education ?2016 [employer].Acute BronchitisBronchitis is inflammation of the airways that [...] Document Reviewed: 12/27/2013Prieto Interactive Patient Education ?2016 [employer]><><><><><><><><><><>< ><><><><><><><><><><><><><> Patient Visit Summary Signature JODI BOSTON has been given the following list of patient education materials, prescriptions and follow-up instructions: TEJ Whitten MORGAN A, have received the above patient education materials/instructions and have verbalized understanding: Date Time Patient Signature Date Time Provider Signature Normal [facility] ED Physician Noteson 018 ED Physician Notes Patient: NORIS BOSTON MRN: [id number] Age: 22 years Sex: Female : 1995 Associated Diagnoses: None Author: Gabriel Hutchinson History of Present Illness I have introduced myself as the PA and informed the patient of the supervising/ collaborating physician who is available upon request. I have discussed the case with the ED physician who participated in the decisions regarding any therapeutic interventions. Physician: Dr. RadfordBdqjla35-envi-dcc white female with history of heart murmur [...] congestion and mild cough. She used numerous usig-qtw-mefjrnm medications and thought that she was getting [...] Upper Respiratory Infection, Adult, AA-Zippy's work release. ([id number]). Follow up with: ; [facility] ([facility]) Within Follow-up as needed This is a [...] Chief Complaint-Triage Fever, Cough/ST, Congestion . Normal [facility] ED Physician Notes PDF Normal [facility] XR Chest 2 Viewson 8 XR Chest 2 views STUDY: Chest two vie ws dated 10/10/2017 1:59 PM.COMPARISON: None.HISTORY: Cough. Fever. 3 days of symptoms. Back pain. Smoking history.FINDINGS: The heart and mediastinum are not enlarged. Vasculature is not increased. No acute consolidation, effusion or pneumothorax is identified.IMPRESSION: No acute cardiopulmonary disease identified. Immediate final results were provided per protocol.[place] thanks you for the opportunity to care for your patient. Workstation ID: [id number] FINAL REPORT Dictated By: Marcos Dueñas MD 10/10/2017 14:01Assigned Physician: Marcos Dueñas MDReviewed and Electronically Signed By: Marcos Dueñas MD 10/10/2017 14:01Transcribed by: HELEN 10/10/2017 14:01Technologist: [facility] Normal [facility] BMPon 05-07-2017 Anion gap 3 molar conc 14 mmol/L Invalid Interpretation Code 10 - 20 mmol/L [facility] Calcium mass conc 9.0 mg/dL Invalid Interpretation Code 8.4 - 10.2 mg/dL [facility] Chloride molar conc 102 mmol/L Invalid Interpretation Code 98 - 108 mmol/L [facility] Creatinine mass conc 0.52 mg/dL Invalid Interpretation Code 0.4 - 1.1 mg/dL [facility] GFR/1.73 sq M predicted among non-blacks MDRD vol rate/area (S/P/Bld) The eGFR should be used for monitoring renal function only and not for medication dosing. Invalid Interpretation Code [facility] GFR/1.73 sq M.predicted CKD-EPI vol rate/area (S/P/Bld) 137 mL/min/1.73 m2 Invalid Interpretation Code >=60 [facility] Glucose mass conc 88 mg/dL Invalid Interpretation Code 65 - 99 mg/dL [facility] HCO3 molar conc 27 mmol/L Invalid Interpretation Code 21 - 32 mmol/L [facility] Potassium molar conc 3.7 mmol/L Invalid Interpretation Code 3.5 - 5.1 mmol/L [facility] Sodium molar conc 139 mmol/L Invalid Interpretation Code 135 - 145 mmol/L [facility] Urea nitrogen mass conc 13 mg/dL Invalid Interpretation Code 8 - 25 mg/dL [facility] Urea nitrogen/Creatinine mass ratio 25.0 mg/mg High 10.0 - 20.0 [facility] CBC Auto Differentialon 04-19 Basophils Auto #/vol (Bld) 0.02 K/mcL Invalid Interpretation Code 0.00 - 0.30 [facility] Basophils/100 WBC Auto (Bld) 0.3 % Invalid Interpretation Code [facility] Eosinophils Auto #/vol (Bld) 0.06 K/mcL Invalid Interpretation Code 0.00 - 0.50 [facility] Eosinophils/100 WBC Auto (Bld) 0.8 % Invalid Interpretation Code [facility] Erythrocyte distribution width Auto Entitic volume (RBC) 18.4 % High 11.6 - 14.8 % [facility] Hematocrit Auto Volume Fraction (Bld) 36.9 % Invalid Interpretation Code 36 - 46 % [facility] Hemoglobin mass conc (Bld) 11.4 g/dL Low 12 - 16 g/dL [facility] Immature granulocytes #/vol (Bld) 0.02 K/mcL Invalid Interpretation Code 0.00 - 0.30 [facility] Immature granulocytes/100 WBC (Bld) 0.30 % Invalid Interpretation Code [facility] Comment on above: The IG parameter is the percentage of metamyelocytes, myelocytes, and promyelocytes. Lymphocytes Auto #/vol (Bld) 2.18 K/mcL Invalid Interpretation Code 0.90 - 4.00 [facility] Lymphocytes/100 WBC Auto (Bld) 28.3 % Invalid Interpretation Code [facility] MCH Auto Entitic mass (RBC) 24.6 pg Low 26 - 34 pg [facility] MCHC Auto mass conc (RBC) 30.9 g/dL Low 31 - 37 g/dL [facility] MCV Auto Entitic volume (RBC) 79.7 fL Low 80 - 100 fL [facility] Monocytes Auto #/vol (Bld) 0.56 K/mcL Invalid Interpretation Code 0.30 - 0.90 [facility] Monocytes/100 WBC Auto (Bld) 7.3 % Invalid Interpretation Code [facility] Neutrophils Auto #/vol (Bld) 4.85 K/mcL Invalid Interpretation Code 1.70 - 7.00 [facility] Neutrophils/100 WBC Auto (Bld) 63.0 % Invalid Interpretation Code [facility] Nucleated RBC #/vol (Bld) 0.00 K/mcL Invalid Interpretation Code 0.00 - 0.00 [facility] Nucleated RBC/100 WBC Ratio (Bld) 0.0 % Invalid Interpretation Code [facility] Platelet mean volume Auto Entitic volume (Bld) 11.3 fL Invalid Interpretation Code 9 - 15.5 fL [facility] Platelets Auto #/vol (Bld) 277 K/mcL Invalid Interpretation Code 150 - 400 [facility] RBC Auto #/vol (Bld) 4.63 M/mcL Invalid Interpretation Code 4.00 - 5.20 [facility] WBC Auto #/vol (Bld) 7.69 K/mcL Invalid Interpretation Code 4.50 - 11.00 [facility] CBC w/ Diffon 05-07-2017 CBC w/ Diff The following orders were created for panel order CBC w/ Diff. Procedure Abnormality Status --------- ------ CBC Auto Differential[[id number]] Abnormal Final result Please view results for these tests on the individual orders. Invalid Interpretation Code [employer] Work Phone: Gold Topon 05-07-2017 Extra Tube Hold for add-ons. Invalid Interpretation Code [facility] Comment on above: Auto resulted. [place] Drawon 05-07-2017 [place] Draw The following orders were created for panel order [place] Draw. Procedure Abnormality Status --------- ------ Gold Top[[id number]] Final result Light Blue Top[[id number]] Final result Wright Top[[id number]] Final result [place] Top[[id number]] Final result Please view results for these tests on the individual orders. Invalid Interpretation Code [facility] Work Phone: Urinalysison 05-07-2017 Bacteria Auto Ql (U) None Seen Invalid Interpretation Code None Seen /hpf [facility] Bilirubin Ql (U) Negative Invalid Interpretation Code Negative [facility] Clarity Refractometry automated Nom (U) Clear Invalid Interpretation Code Clear [facility] Color Auto Nom (U) Yellow Invalid Interpretation Code Colorless, Yellow [facility] Epithelial cells.squamous Auto #/area (Urine sed) <1 Invalid Interpretation Code 0 - 4 /hpf [facility] Glucose Automated test strip mass conc (U) Negative Invalid Interpretation Code Negative mg/dL [facility] Hemoglobin Automated test strip Ql (U) Negative Invalid Interpretation Code Negative [facility] Interpretation and review of laboratory results Abnormal Invalid Interpretation Code [facility] Ketones mass conc (U) Negative Invalid Interpretation Code Negative mg/dL [facility] Leukocyte esterase Automated test strip Ql (U) Negative Invalid Interpretation Code Negative [facility] Mucus Auto #/area (Urine sed) Few Abnormal None Seen, Rare /lpf [facility] Nitrite Automated test strip Ql (U) Negative Invalid Interpretation Code Negative [facility] pH Test strip (U) 6.0 [pH] Invalid Interpretation Code 5.0 - 7.0 [facility] Protein mass conc (U) 30 Abnormal Negative mg/dL [facility] Comment on above: False positive resul ts may occur in urines with large amounts of hemoglobin, pH greater than 8.0, contrast medium, or disinfectants including ammonium compounds. Specific gravity Automated test strip Relative Density (U) 1.021 1 Invalid Interpretation Code 1.005 - 1.025 [facility] Urobilinogen Test strip Qn (U) <2.0 Invalid Interpretation Code <2.0 mg/dL [facility] WBC Auto #/area (Urine sed) 1 /hpf Invalid Interpretation Code 0 - 5 [facility] Urinalysis Microscopic examinat ion is performed on all urinalysis samples and only positive findings are reported. The test for blood on the chemical analytic portion of urinalysis may also be positive due to hemoglobinuria and myoglobinuria and if red blood cells are present they are quantified by microscopic examination. Invalid Interpretation Code [facility] Urine Pregnancyon 05-07-2017 HCG ( test) Ql (U) Negative Invalid Interpretation Code Negative [facility] Interpretation and review of laboratory results Normal Invalid Interpretation Code [facility] Vital Signs Date Time Vital Sign Value Performing Clinician Facility 12-27-2017 11:36-0400 BMI (Body Mass Index) 23.64 kg/m2 [facility] 12-27-2017 11:36-0400 Body Temperature 98.29 [degF] [facility] 12-27-2017 11:36-0400 BP Diastolic 83 mm[Hg] [facility] 12-27-2017 11:36-0400 BP Systolic 121 mm[Hg] [facility] 12-27-2017 11:36-0400 Height 162.6 cm [facility] 12-27-2017 11:36-0400 Pulse (Heart Rate) 84 /min [facility] 12-27-2017 11:36-0400 Pulse Oximetry 97 % [facility] 12-27-2017 11:36-0400 Respiratory Rate 12 /min [facility] 12-27-2017 11:36-0400 Weight 62.46 kg [facility] 05-08-2017 13:44-0400 BP Diastolic 71 mm[Hg] Solis French [facility] Work Phone: 05-08-2017 13:44-0400 BP Systolic 118 mm[Hg] [facility] Work Phone: 05-08-2017 13:44-0400 Pulse (Heart Rate) 68 /min Solismallika French [facility] Work Phone: 05-08-2017 13:44-0400 Pulse Oximetry 99 % [facility] Work Phone: 05-08-2017 13:44-0400 Respiratory Rate 18 /min [facility] Work Phone: 05-08-2017 10:49-0400 BMI (Body Mass Index) 23.17 kg/m2 [facility] Work Phone: 05-08-2017 10:49-0400 Body Temperature 98.29 [degF] Solis French [facility] Work Phone: 05-08-2017 10:49-0400 Height 162.6 cm Solis French [facility] Work Phone: 05-08-2017 10:49-0400 Weight 61.24 kg Solis French [facility] Work Phone: 05-07-2017 19:00-0400 BP Diastolic 62 mm[Hg] Henri Pulliam [facility] Work Phone: 05-07-2017 19:00-0400 BP Systolic 108 mm[Hg] Henri Pulliam [facility] Work Phone: 05-07-2017 19:00-0400 Pulse (Heart Rate) 63 /min Henri Pulliam [facility] Work Phone: 05-07-2017 19:00-0400 Respiratory Rate 16 /min Henri Pulliam [facility] Work Phone: 05-07-2017 16:14-0400 BMI (Body Mass Index) 22.86 kg/m2 Henri Pulliam [facility] Work Phone: 05-07-2017 16:14-0400 Body Temperature 98.8 [degF] Henri Pulliam [facility] Work Phone: 05-07-2017 16:14-0400 Height 162.6 cm Henri Pulliam [facility] Work Phone: 05-07-2017 16:14-0400 Pulse Oximetry 100 % Henri Pulliam [facility] Work Phone: 05-07-2017 16:14-0400 Weight 60.42 kg Henri Pulliam [facility] Work Phone: Encounters Encounter Date Encounter Type Care Provider Facility Start: 08-28-2023 Clinisync Result Encounter Jeri GARRETT Work Phone: [facility] Unsolicited Start: 08-28-2023 Clinisync Result Encounter Jeri AGRRETT Work Phone: [facility] Unsolicited Start: 07-09-2021 End: 07-12-2021 ambulatory DARY Hunter [facility] Start: 12-27-2017 End: 12-27-2017 Ambulatory ROXANE BEASLEY [facility] Start: 12-27-2017 End: 12-27-2017 Office/outpatient visit, est, level 3 Mari Janeen Socrates Work Phone: [facility] [address] Start: 11-21-2017 End: 11-21-2017 Emergency department patient visit No PCP Physician Facility:[facility] Start: 10-10-2017 End: 10-10-2017 Emergency department patient visit No PCP Physician Facility:[facility] Start: 05-08-2017 End: 05-08-2017 Emergency department patient visit ROXANE SIMS [facility] Start: 05-08-2017 End: 05-08-2017 Emergency department patient visit Solis French Work Phone: [facility] Comment on above: Trapezius muscle spa sm (Primary Dx) Start: 05-07-2017 End: 05-07-2017 Emergency department patient visit HENRIVon MCCORMICK ARRON [facility] Start: 05-07-2017 End: 05-07-2017 Emergency department patient visit Henri Pulliam Work Phone: [facility] Comment on above: Nonintractable heada cheryle, unspecified chronicity pattern, unspecified headache type (Primary Dx) Procedures Date Procedure Procedure Detail Performing Clinician Start: 08-28-2023 ALL CBC WITH AUTO DIFF Jeri GARRETT Work Phone: Plan of Treatment Date Care Activity Detail Author Start: 08-31-2023 End: 08-31-2023 Patient encounter procedure 08/31/2023 4:00 PM EST Routine [facility] [address] [place] [id number] Timothy Bourgeois, DO [address] [place] [address] Third trimester [facility] Comment on above: Third trimester preg dinora Start: 03-20-2023 Influenza vaccination Influenz a Vaccine (#1) [facility] Start: 03-20-2018 Influenza vaccination SEQUENTI AL INFLUENZA VACCINE (Season Ended) [facility] Start: 03-20-2017 Influenza vaccination SEQUENTI AL INFLUENZA VACCINE (#1) [facility] Work Phone: Start: 2007 Vaccination for luciana n papillomavirus HPV VACCINES (1 of 3 - Female 3 Dose Series) [facility] Work Phone: Start: 1996 Adult depression screening assessment DEPRESSION SCREENING (PHQ9) [facility] Start: 1996 Screening for malign ant neoplasm of cervix PAP SMEAR [facility] Work Phone: Start: 1995 SUBSTANCE ABUSE SCRE ENING (AUDIT-C) SUBSTANCE ABUSE SCREENING (AUDIT-C) [facility] Start: 1996 Tetanus vaccination TETANUS EVERY 10 YR [facility] Work Phone: Streptococcus pyogen es [Presence] in Throat by Organism specific culture Strep A Culture, Throat Routine Sore throat Ordered: 12/27/2017 [facility] Immunizations Immunization Date Immunization Notes Care Provider Mateo francisco 05-08-2016 influenza, seasonal, injectable Henri Pulliam [facility] Work Phone: 05-08-2016 influenza virus vaccine, unspecified formulation Jeri GARRETT Work Phone: [facility] Payers Date Payer Category Payer Unknown [id number] 2017 Unknown [id number] 2016 Unknown Social History Date Type Detail Facility Start: 12-27-2017 Tobacco smoking stat [facility] Current every day smoker [facility] History of tobacco use Cigarette Smoker [facility] Work Phone: Start: 12-27-2017 Cigarettes smoked current (pack per day) - Reported [facility] Sex Assigned At Not on file [facility] Work Phone: Start: 05-07-2017 End: 05-08-2017 Tobacco smoking status DEIS Former smoker [facility] Work Phone: Tobacco smoking stat [facility] Tobacco smoking consumption unknown [facility] Start: 02-17-2023 [facility] Start: 1995 Sex Assigned At Female [facility] Start: 04-02-2023 Gender identity Identifies as female gender (finding) [facility] Start: 04-02-2023 Sexual orientation Bisexual (finding ) [facility] Instructions * Patient Instructions [...] 1 cup of warm water. Take an prfs-lno-hcfldcq pain medicine, such as acetaminophen (Tylenol), ibuprofen (Advil, Motrin),or naproxen (Aleve). Read and follow all instructions on the label. Be careful when taking ipqn-pyr-umlzzqs cold or flu medicines and Tylenol at [...] soup, may help decrease throat pain. Use soyh-piq-yszkpet throat lozenges to soothe pain. Regular cough [...] Log into your personal health record on [email or web address] and enter U420 in the Education box to learn more about Sore Throat: Care Instructions. Current as of: November 28, 2016 Content Version: 11.6 1319-3589 [employer]. Care instructions adapted under license by your healthcare professional. If you have questions about a medical condition or this instruction, always ask your healthcare professional. [employer] disclaims any warranty or liability for your [...] rest if you feel tired. Take an ekan-xkk-hxuzybc pain medicine if needed, such as acetaminophen (Tylenol), ibuprofen (Advil, Motrin), or naproxen (Aleve). Read and follow all instructions on the label. Be careful when taking tcvh-zke-fkqfixe cold or flu medicines and Tylenol at [...] Log into your personal health record on [email or web address] and enter L906 in the Education box to learn more about Viral Infections: Care Instructions. Current as of: June 06, 2017 Content Version: 05.25-2018 [employer]. Care instructions adapted under license by your healthcare professional. If you have questions about a medical condition or this instruction, always ask your healthcare professional. [employer] disclaims any warranty or liability for your [...] Advanced Directives Records Found Discharge Instructions * GeoffAlyssa Onur, DO - 05/07/2017 Headache: Care Instructions Your [...] your doctor if you can take an ocmi-wer-priclkt medicine. Be careful not to take pain [...] Log into your personal health record on [email or web address] and enter M271 in the Education box to learn more about Headache: Care Instructions. Current as of: May 02, 2016 Content Version: 11.2 8525-7116 [employer]. Care instructions adapted under license by your healthcare professional. If you have questions about a medical condition or this instruction, always ask your healthcare professional. [employer] disclaims any warranty or liability for your use of this information. in this encounter Additional Source Comments INFORMATION SOURCE (unrecogn ized section and content) DATE CREATED AUTHOR 01/05/2018 [facility] DATE CREATED AUTHOR AUTHOR'S ORGANIZ ATION 01/12/2018 [facility] DATE CREATED AUTHOR AUTHOR'S ORGANIZ ATION 02/02/2018 [facility] DATE CREATED AUTHOR AUTHOR'S ORGANIZ ATION 07/12/2021 [facility] Reason for Visit (unrecogniz ed section and [...] the patient. I discussed the patient with DOCUMENTATION LIAISON/PA. I agree with the DOCUMENTATION LIAISON/PA treatment plan. I agree with the DOCUMENTATION LIAISON/PA plan of care. I agree with the DOCUMENTATION LIAISON/PA dispo as documented. The patient has been [...] Procedure Abnormality Status --------- ------ CBC Auto Differential[[id number]] Abnormal Final result Please view results for these tests on the individual orders. RAINBOW DRAW Narrative: The following orders were created for panel order [place] Draw. Procedure Abnormality Status --------- ------ Gold Top[[id number]] In process Light Blue Top[[id number]] In process Wright Top[[id number]] In process [place] Top[[id number]] In process Please view results for these [...] note may be different from the original. [facility] ED Resident Note: NAME: Jodi Boston 22 y.o. CSN: [id number] PCP: Roxane Beasley DO History: Chief Complaint: [...] PMSx: Past Surgical History: Procedure Laterality Date President + Publisher WISDOM TOOTH EXTRACTION FAM. 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 RAINBOW DRAW Narrative: The following orders were created for panel order [place] Draw. Procedure Abnormality Status --------- ------ Gold Top[[id number]] In process Light Blue Top[[id number]] In process Wright Top[[id number]] In process [place] Top[[id number]] In process Please view results for these [...] Given 05/07/171728) This note was generated by [employer] voice recognition software and as a result grammatical or spelling errors may occur using this program. Clinical Impression: SNOMED CT(R) 1. Nonintractable headache, unspecified chronicity pattern, unspecified headache type HEADACHE Disposition: Patient is being discharged to home New Prescriptions No medications on file Alyssa Tellez DO ED Resident Physician [facility] Emergency Department (Please note that portions of this note have been completed with a voice recognition software. Efforts were made to correct any errors, but occasionally words are mis-transcribed.) Alyssa Tellez DO Resident 05/07/17 9406 SECONDARY ASSESSMENT - Breathing regular and unlabored, [...] wall movement. Circulation: Skin warm and dry, STAFFING PROGRAM MANAGER < 3 seconds, 2+ Bilateral radial pulses. [...] to the room to provide pt with DC/administrative operations coordinator/care instructions. 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 All imaging has been read by a Radiologist. Eleno Thao PA-C 05/08/17 1315 Pt presents to the ED c/o of severe neck pain. Pt was tx at [facility] yesterday for migraine at which time her [...] night, pt was seen in ED at [facility] yesterday treated for migraine headache, denies headache [...] BE BASED ON THE PRIMARY CLINICAL RECORDS. [facility]. provides no warranty or guarantee of the accuracy or completeness of information in this document.
== END 2023-10-12 21:59 | disposition home or self-care (01) ==
LOC: LAB 21:58
PROVIDERS: Visit Provider Obstetrics & Gynecology
DX: Z34.93 Encounter for supervision of normal pregnancy, unspecified, third trimester (principal)
CPT/HCPCS: 87081

== ENCOUNTER 2023-10-20 08:38 | Outpatient (OUT) | payer OTHER, SELFPAY ==
--- NOTE | 2023-10-20 08:39 | US_ITS ---
[place] [id number] Patient Name: JODI BURNHAM MRN: [id number] date: 1995 Sex: F Assigned Patient Location: [facility] Current Patient Location: [facility] Accession/Order Number: [id number] Exam Date: 10/20/2023 08:40 Report Date: 10/20/2023 16:14 At the request of: JANKI STOREY Procedure: US OB growth EXAMINATION: US OB growth HISTORY: LGA COMPARISON: Ultrasound OB growth 09/19/2023 FINDINGS: Heart Rate: 156.0 bpm Number: 1.0 Position: CEPHALIC Amniotic Fluid Volume: 13.1 cm Maximum Vertical Pocket: 5.6 cm BIOMETRY: BPD: 9.1 cm cm; 37 weeks 0 days; 67% HC: 33.9 cmcm; 39 weeks 0 days; 73% AC: 36.1 cm cm; 40 weeks 0 days; >97% FL: 7.2 cm cm; 37 weeks 0 days; 50.7 % % EFW: 3618.6 grams; 94% FL/AC: 20.1 FL/BPD: 79.3 HC/AC: 0.9 GESTATIONAL AGE: Age by EDC: 37 weeks 0 days URIAH by EDC: 11/10/2023 Age by US: 38 weeks 2 days URIAH by US: 11/01/2023 US/US OB growth IMPRESSION: 1. Single live intrauterine with growth detailed above. 2. Abdominal circumference is greater than 97th percentile. Electronically authenticated by: MIREYA LOW Date: 10/20/2023 16:14
--- OUTSIDE RECORDS SUMMARY | 2023-10-20 08:56 | XMS_ITS | CCD ---
Author Organization [facility] Care Team Providers Care Hand Chain Maker Name Role Phone Ramos Roxane Sims Unavailable [phone] BEASLEY ROXANE DWYERECCA Unavailable Unavail able MARI [...] Propensity to adverse reactions 08-26-19 19 Rash [facility] Healthcare Work Phone: (1 source) Prochlorperazine Drug Allergy 05-07-20 18 [facility] Medications Current Medications Medication Drug Class(es) [...] for constipation 30 capsule 5 08/05/2023 Active [id number] 0.3 ml EPINEPHrine 1 mg/ml auto-injector (4 [...] parts viscous lidocaine 2%, diphenhydramine 12.5mg/5mL, maalox 027ny-417fs-52hg/5mL (1 source) Start: 018 End: 018 magic mouthwash susp equal parts viscous lidocaine 2%, diphenhydramine 12.5mg/5mL, maalox 082xa-884ii-58ob/5mL Swish and spit 5 mL every 6 [...] morning. 360 capsule 0 08/05/2023 08/04/2024 Active Bmhpko-JwZxx-UxWao-FA-C [facility]-[place] (Complete DHA) 29-1-200 & 200 MG misc (1 source) Start: 023 Wtpkpw-PwPjr-AaPka-FA- [place] (Complete Annette DHA) 29-1-200 & 200 MG [...] WITH AUTO DIFFon BASOPHILS ABSOLUTE AUTO 0.0 [facility] Basophils/100 WBC (Bld) 0.1 % Low 0.2 - 2.0 % [facility] Eosinophils/100 WBC (Bld) 0.4 % Low 0.9 - 7.0 % [facility] Erythrocyte distribution width (RBC) [Ratio] 13.4 % 11.0 - 15.0 % [facility] Hematocrit (Bld) [Volume fraction] 29.5 % Low 36.0 - 48.0 % [facility] Hemoglobin (Bld) [Mass/Vol] 9.2 g/dL Low 12.0 - 16.0 g/dL [facility] IMMATURE GRANULOCYTES ABS AUTO 0.08 High [facility] Immature granulocytes/100 WBC (Bld) 0.8 % High 0.0 - 0.5 % [facility] Interpretation and review of laboratory results Abnormal [facility] LYMPHOCYTES ABSOLUTE AUTO 1.8 [facility] Lymphocytes/100 WBC (Bld) 19.1 % Low 20.5 - 60.0 % [facility] MCH (RBC) [Entitic mass] 26.5 pg Low 26.7 - 34.0 pg [facility] MCHC (RBC) [Mass/Vol] 31.2 g/dL 29.9 - 35.2 g/dL [facility] MCV (RBC) [Entitic vol] 85.0 fL 81.0 - 99.0 fL [facility] MONOCYTES ABSOLUTE AUTO 0.8 [facility] Monocytes/100 WBC (Bld) 8.0 % 1.7 - 12.0 % [facility] NEUTROPHILS ABSOLUTE AUTO 6.9 High [facility] Neutrophils/100 WBC (Bld) 71.6 % 43.0 - 75.0 % [facility] Platelet mean volume (Bld) [Entitic vol] 10.5 fL 9.5 - 13.5 fL [facility] TB EO # 0.0 [facility] TB PLT 192 [facility] TB RBC 3.47 Low [facility] WBC 9.6 [facility] XR CHEST (2 VW)on 07-09-2021 XR [...] Hamzah Kaba MD 07/09/21 Final result Normal [facility] POC Rapid Strep Aon 12-28-19 Interpretation and review of laboratory results Normal Invalid Interpretation Code [facility] Streptococcus pyogenes antigen presence Negative Invalid Interpretation Code Negative [facility] Basic Metabolic Panelon 05-0 Anion gap 8.0 mmol/L Normal 6.0-18.0 [facility] Comment on above: Result Comment: PLEA SE NOTE:The calculated Anion Gap(AGAP) does not include Potassium. Performed By: #### 6 9405-9, 24018-9h5, 3040-3, 77160-0, 15861-1 ####[facility], [address] [place], [place]. Calcium 9.3 mg/dL Normal 8.9-10.3 [facility] Comment on above: Performed By: #### 6 9405-9, 62738-2n1, 3040-3, 84832-8, 17333- 3 ####[facility], [address] [place], [place]. Chloride 106 mmol/L Normal 98-107 [facility] Comment on above: Performed By: #### 6 9405-9, 62012-2n3, 3040-3, 24209-5, 28029- 3 ####[facility], [address], [place] CO2 25 mmol/L Normal 22-32 [facility] Comment on above: Performed By: #### 6 9405-9, 91582-9m4, 3040-3, 81841-2, 74338- 3 ####[facility], [address] [place] Creatinine 0.65 mg/dL Low 0.66-1.30 [facility] Comment on above: Performed By: #### 6 9405-9, 05416-1x8, 3040-3, 71746-9, 86415- 3 ####[facility], [address], [place], [place]. Glucose mass conc 88 mg/dL Normal 70-110 [facility] Comment on above: Performed By: #### 6 9405-9, 45232-5g1, 3040-3, 61054-7, 41202- 3 ####[facility], [address] [facility] [place]. Potassium molar conc 3.5 mmol/L Low 3.6-5.1 [facility] Comment on above: Performed By: #### 6 9405-9, 43676-6i2, 3040-3, 71957-0, 94821- 3 ####[facility], [address], [place]. Sodium 139 mmol/L Normal 136-145 [facility] Comment on above: Performed By: #### 6 9405-9, 66734-0j0, 3040-3, 09372-7, 21546- 3 ####[facility], [address] [place], [place]. Urea nitrogen mass conc (BldV) 10 mg/dL Normal 8-20 [facility] Comment on above: Performed By: #### 6 9405-9, 00667-8i0, 3040-3, 00352-2, 87919- 3 ####[facility], [address] [place] [address]. CBCon 11-21-2017 Erythrocyte distribution width Entitic volume (RBC) 20.1 % High 11.0-14.8 [facility] Comment on above: Performed By: #### 2 4317-0 ####[facility], [address] [place] [address]. Erythrocytes (RBC) 4.57 million/mcL Normal 3.80-5.10 [facility] Comment on above: Performed By: #### 2 7-0 ####[facility], [address] [place] [address]. Hematocrit (HCT) 34.8 % Low 35.0-45.0 [facility] Comment on above: Performed By: #### 2 7-0 ####[facility], [address] [place] [address]. Hemoglobin mass conc (Bld) 11.3 g/dL Low 12.0-16.0 [facility] Comment on above: Performed By: #### 2 4317-0 ####[facility], [address] [place] [address]. MCH 24.8 Picograms Low 27.0-34.0 [facility] Comment on above: Performed By: #### 2 4317-0 ####[facility], [address] [place] [address]. MCHC mass conc (RBC) 32.6 g/dL Normal 32.0-36.0 [facility] Comment on above: Performed By: #### 2 4317-0 ####[facility], [address] [place], [place]. MCV 76.1 fL Low 80.0-97.0 [facility] Comment on above: Performed By: #### 2 4317-0 ####[facility], [address] [place], [place]. Platelet mean volume Entitic volume (Bld) 8.9 FL Normal 6.2-12.1 [facility] Comment on above: Performed By: #### 2 4317-0 ####[facility], [address] [place], [place]. Platelets 251 thou/mcL Normal 142-424 [facility] Comment on above: Performed By: #### 2 4317-0 ####[facility], [address] [facility] [facility] [place]. WBC (Leukocytes) 6.4 thou/mcL Normal 4.6-10.2 [facility] Comment on above: Performed By: #### 2 4317-0 ####[facility], [address] [facility] [place] CT Abd and Pelvis w Contrast [...] emergency department following dictation on 11/21/2017 3:41 AM.Roland thanks you for the opportunity to care for your patient. Workstation ID: [id number] - [id number] FINAL REPORT Dictated By: Pérez Queen MD 11/21/2017 03:38Assigned Physician: Pérez Queen MDReviewed and Electronically Signed By: Pérez Queen MD 11/21/2017 03:42Transcribed by: HELEN 11/21/2017 03:38Technologist: YRIS Normal [facility] Culture Urine + Susceptibili tyon 11-21-2017 Urine culture, bacteria [facility] MicrobiologyPROCEDURE: Culture Urine + SusceptibilitySOURCE: Urine BODY SITE:COLLECTED DATE/TIME: 11/21/2017 01:41 EDT RECEIVED DATE/TIME: 11/21/2017 01:41 EDTSTART DATE/TIME: 11/21/2017 01:41 EDT FREE TEXT SOURCE: URINEINTERFACED REPORTSFinal Report []Verified Date/Time/Personnel: 11/22/2017 12:17 EDT CONTRIBUTOR_SYSTEM, CO_PNORGANISMS USUALLY ASSOCIATED WITH VAGINAL,URETHRAL,AND/OR SKIN CONTAMINATION PRESENT. [facility] Comment on above: Performed By: #### 5 8077-9, 58921-5 ####[facility], [address] [place], [place].#### 630-4 ####[facility] [address] [place], [place] Depart Summaryon 11-21-2017 Depart Summary EMERGENCY DEPARTMENT DISCHARGE SUMMARYPATIENT NAME:JODI BOSTON MRN: (COL)-[id number]: 22 Years SEX: Female PHONE:[phone]: 11/20/2017 10:57 PM : 1995 ATTENDING PHYSICIAN:Ernestine Mckeon MD PCP: Physician, No PCP CHIEF COMPLAINT: abdominal pain Allergies Compazine (Anger)Problems Active No Chronic Problems DISCHARGE DIAGNOSIS: DISCHARGE INSTRUCTIONS: Work Release (CO-S) (CUSTOM); Abdominal Pain, Adult ED PHYSICIAN DOCUMENTATION: History of Present Moylctt83-plny-asg female with no significant medical history presents [...] Result(s): Date Order Results 11/20/2017 23:06 Specific [place] Urine POCT N 1.030 11/20/2017 23:06 pH Urine POCT N 5 11/20/2017 23:06 Urobilinogen Urine POCT N 0 mg/dL 11/21/2017 01:41 Appearance Urine A TURBID 11/21/2017 01:41 Specific [place] Urine H 1.032 11/21/2017 01:41 Blood Urine [...] any generalized worsening of your condition. Normal [facility] ED Pat Naa 11-21-2017 ED [place] [address] [facility] Department Discharge Instructions JODI BOSTON , Please [...] Servicios de Emergencia Name JODI BOSTON MRN (COL)-[id number] PLEASE READ THE FOLLOWING REGARDING YOUR MEDICATIONS [...] doses are changed, or new medications (including cvvy-utl-nznucat products) are added. If you have any [...] de emergenc??a. Actualiza la lista cuando Ud. zarie de crystal las medicaciones, si cambian las [...] TAKE UNTIL YOU TALK TO YOUR DOCTORNone [place] [id number] [facility] Department Discharge Instructions Name: JODI BOSTON Current Date: 11/21/2017 03:50:01 : 1995 12:00 PM Primary Physician: Physician, No PCP We would like to thank you for choosing [facility] for your emergency medical needs. We examined [...] health of those around you. Call the [place] [employer] at 0-094-CPMM-[place] or the [place] [employer] at 6-892-GYY-4194 for more information.High blood pressure: Your screening blood pressure today was 108 mm Hg / . Hypertension (high blood pressure) is blood pressure over 120/80. People with hypertension should contact their primary care provider within 30 days to follow up. Check your patient portal for additional blood pressure information.Immunizations:I mmunization is a way to protect against deadly infections. Discuss this with your child's automatic coin machine mechanic, or Public Health Department. Your family practice doctor can determine if you need pneumonia or flu vaccine. The [facility] can be reached at .Domestic Violence:If you [...] suicide hotline, anytime day or night, at 0-067-834-SVQS. Pharmacy Information:Below is a list of 24 hour pharmacies that we are aware of. We suggest that you call the specific pharmacy for their hours before traveling to a location. Hours may vary on holidays. [facility] [address] [address] [phone] [address] [phone] [address] [phone] [place] [address] [phone] [place] [address] [phone] [place] [address] [phone] [place] [address] [phone] Take all medications as directed. If you need prescription assistance, contact the following agencies:?? [facility] for Prescription Assistance at or www.gripNote.org?? [facility] Rx at or www.[employer] Solarrx.org?? [employer] is a site with many valuable coupons [...] alleviate any discomfort you are experiencing:???Only take hmvq-xwe-bztjnqc or prescription medicines as directed by your [...] Document Reviewed: 03/15/2014P[employer] Patient Education ?2016 [employer]><><><><><><><><><><>< ><><><><><><><><><><><>< ><> Patient Visit Summary Signature JODI BOSTON has been given the following list of patient education materials, prescriptions and follow-up instructions: TEJ Whitten MORGAN A, have received the above patient education materials/instructions and have verbalized understanding: Date Time Patient Signature Date Time Provider Signature Normal [facility] ED Physician Noteson 018 ED Physician [...] chronic problems Historical No qualifying dataProcedure/Surgical History [place] tooth.Medications Home No active home medications ED [...] department following dictation on 11/21/2017 3:41 AM. Roland thanks you for the opportunity to care [...] MD November 21, 2017 00:59 Completed Normal [facility] ED Physician Notes PDF Normal [facility] GFRaaon 11-21-2017 eGFR (black) mL/min/{1.73_m2} Normal [facility] Comment on above: Result Comment: The MDRD equation has not been validated for those over 70 years, women, patients with serious co-morbid conditions, or with extremes of bodysize, muscle mass of nutritional status. Performed By: #### 6 9405-9, 63173-4b7, 3040-3, 58144-8, 13656-7 ####[facility], [facility] [place], [place]. GFRbbon 11-21-2017 eGFR (non-black) mL/min/{1.73_m2} Normal [facility] Comment on above: Performed By: #### 6 9405-9, 35520-1m4, 3040-3, 11992-5, 94439- 3 ####[facility], [address], [place]. Hepatic Function Panelon Alanine aminotransferase (ALT) 15 Units/L Normal 14-63 [facility] Comment on above: Performed By: #### 6 9405-9, 35965-6o2, 3040-3, 23540-7, 94391- 3 ####[facility], [address], [place]. Albumin 4.2 g/dL Normal 3.5-4.8 [facility] Comment on above: Performed By: #### 6 9405-9, 41751-4b0, 3040-3, 43269-5, 62845- 3 ####[facility], [address] [place], [place]. Alkaline phosphatase (ALP) 36 Units/L Normal 32-91 [facility] Comment on above: Performed By: #### 6 9405-9, 96998-3x5, 3040-3, 09446-0, 87802- 3 ####[facility], [address] [place], [place]. Aspartate aminotransferase (AST) 19 Units/L Normal 15-41 [facility] Comment on above: Performed By: #### 6 9405-9, 54068-0w5, 3040-3, 05755-9, 57064- 3 ####[facility], [address] [place], [place]. Bilirubin (direct) 0.1 mg/dL Normal 0.1-0.5 [facility] Comment on above: Performed By: #### 6 9405-9, 58414-5d4, 3040-3, 55361-9, 49859- 3 ####[facility], [address] [place], [place]. Bilirubin (total) 0.6 mg/dL Normal 0.3-1.2 [facility] Comment on above: Performed By: #### 6 9405-9, 48282-7v1, 3040-3, 88286-6, 93051- 3 ####[facility], [address], [place]. Bilirubin.indirect mass conc 0.5 mg/dL Normal 0.0-1.0 [facility] Comment on above: Performed By: #### 6 9405-9, 92096-3p6, 3040-3, 14735-4, 55274- 3 ####[facility], [address] [place], [place]. Protein 6.9 g/dL Normal 6.1-7.9 [facility] Comment on above: Performed By: #### 6 9405-9, 29628-4y4, 3040-3, 37917-5, 18855- 3 ####[facility], [address] [place], [place]. Lipaseon 11-21-2017 Lipase 21 Units/L Low 22-51 [facility] Comment on above: Performed By: #### 6 9405-9, 85938-6l0, 3040-3, 58240-4, 51499- 3 ####[facility], [address] [place], [place]. Urinalysis Microscopicon Urine, amorphous crystals presence in sediment FEW Abnormal NONE/HPF [facility] Comment on above: Performed By: #### 5 8077-9, 73701-5 ####[facility], [address] [place], [place].#### 630-4 ####[facility] [address] [place], [place] Urine, bacteria in sediment FEW Abnormal NONE/HPF [facility] Comment on above: Performed By: #### 5 8077-9, 05838-0 ####[facility], [address] [place], [place].#### 630-4 ####[place] [address] [place], [place] Urine, erythrocytes in sediment by area 6 /[HPF] High 0-5 [facility] Comment on above: Performed By: #### 5 8077-9, 03429-2 ####[facility], [address], [place].#### 630-4 ####[place] [address] [place], [place] Urine, mucus presence in sediment MANY Abnormal NONE/LPF [facility] Comment on above: Performed By: #### 5 8077-9, 74405-4 ####[facility], [address] [place], [place] [address], [place].#### 630-4 ####[address] Urine, squamous cells in sediment MANY Abnormal FEW/LPF [facility] Comment on above: Performed By: #### 5 8077-9, 40594-3 ####[facility], [address] [place], [place] [address], [place].#### 630-4 ####[address] WBC Urine 6 /hpf High 0-5 [facility] Comment on above: Performed By: #### 5 8077-9, 44696-4 ####[facility], [address] [place], [place] [address], [place].#### 630-4 ####[address] Urinalysis with Microscopic Automatic with Reflexon 11-21-2017 Bilirubin Test strip mass conc (U) Negative Normal NEGATIVE [facility] Comment on above: Performed By: #### 5 8077-9, 32441-0 ####[facility], [address], [place].#### 630-4 ####[address],[place] Glucose Test strip mass conc (U) NORMAL Normal NORMAL [facility] Comment on above: Performed By: #### 5 8077-9, 78264-9 ####[facility], [address], [place].#### 630-4 ####[place] [address] [place], [place] Ketones Test strip mass conc (U) 80MG/DL Abnormal NEGATIVE [facility] Comment on above: Performed By: #### 5 8077-9, 10460-5 ####[facility], [address] [facility], [place].#### 630-[address] ####[address] Nitrite Test strip mass conc (U) Negative Normal NEGATIVE [facility] Comment on above: Performed By: #### 5 8077-, 52219-5 ####[facility], [address] [place], [place] [address]E.[place], [place].#### 630-4 ####[place] [address] [place], [place] Urine, appearance TURBID Abnormal CLEAR [facility] Comment on above: Performed By: #### 5 8077-9, 58985-7 ####[facility], [address] [place], [place] [address]E.[place], [place].#### 630-4 ####[place] [address] [place], [place] Urine, color TELLO Normal YELLOW [facility] Comment on above: Performed By: #### 5 8077-9, 23029-6 ####[facility], [address], [place].#### 630-4 ####[place] [address] [place], [place] Urine, hemoglobin presence 10/UL Abnormal NEGATIVE [facility] Comment on above: Performed By: #### 5 8077-9, 73148-8 ####[facility], [address] [place], [place].#### 630-4 ####[place] [address] [place], [place] Urine, leukocyte esterase presence 25/UL Abnormal NEGATIVE [facility] Comment on above: Performed By: #### 5 8077-9, 05967-7 ####[facility], [address] [facility] [place].#### 630-4 ####[place] [address] [place], [place] Urine, pH 5.0 [pH] Normal 4.5-8.0 [facility] Comment on above: Performed By: #### 5 8077-9, 72808-5 ####[facility], [address] [place] [address].#### 630-4 ####[address] Urine, protein 100 mg/dL Abnormal NEGATIVE [facility] Comment on above: Performed By: #### 5 8077-9, 88033-4 ####[facility], [address] [place] [address].#### 630-4 ####[address] Urine, specific gravity 1.032 High 1.002-1.030 [facility] Comment on above: Performed By: #### 5 8077-9, 04914-0 ####[facility], [address] [facility] [place].#### 630-4 ####[place] [address] [place], [place] Urobilinogen Test strip mass conc (U) NORMAL Normal NORMAL [facility] Comment on above: Performed By: #### 5 8077-9, 88198-3 ####[facility], [address] [facility], [place].#### 630-4 ####[facility] [address] [place], [place] Depart Summaryon 10-10-2017 Depart Summary EMERGENCY DEPARTMENT DISCHARGE SUMMARYPATIENT NAME:JODI BOSTON MRN: -[id number]: 22 Years SEX: Female PHONE:[phone]: 10/10/2017 1:18 PM : 1995 ATTENDING PHYSICIAN:Yaneth Radford MD PCP: Physician, No PCP CHIEF COMPLAINT: Fever, Cough/ST, Congestion Allergies Compazine (Anger)Problems Active No Chronic Problems DISCHARGE DIAGNOSIS: DISCHARGE INSTRUCTIONS: AA-Zippy's work release. ([id number]); Upper Respiratory Infection, Adult; Acute Bronchitis; Pharyngitis; Strep Throat; Sinusitis, Adult ED PHYSICIAN DOCUMENTATION: History of Present Illness I have introduced myself as the PA and informed the patient of the supervising/ collaborating physician who is available upon request. I have discussed the case with the ED physician who participated in the decisions regarding any therapeutic interventions. Physician: Dr. RadfordTiijez61-gzgc-qbm white female with history of heart murmur [...] congestion and mild cough. She used numerous jjfu-wdj-yylmcwv medications and thought that she was getting [...] FOLLOW UP:FOLLOW-UP APPOINTMENTS: Provider: Specialty: Address: Date: [facility] [address] [facility] [address] (6) Follow-up as needed Comment: This is [...] be significantly worsening instead of improving. Normal [facility] ED Pat Eduon 10-10-2017 ED Pat Edu [place] [id number] [facility] Department Discharge Instructions JODI BOSTON , Please provide this information to your Primary Care/Specialist Name : JODI BOSTON Current Date : 10/10/2017 14:43:31DOB : 1995 12:00 PM Primary Care Physician: Physician, [place] PCP Diagnosis : Follow-Up Instructions:JODI BOSTON has been given these follow-up instructions: FOLLOW-UP APPOINTMENTS: Provider: Specialty: Address: Date: [facility] ([facility]) [address] [facility] [id number] () Follow-up as needed Comment: This is [...] and Patient Education(s) : Keiry's work release. ([id number]); Upper Respiratory Infection, Adult; Acute Bronchitis; Pharyngitis; Strep Throat; Sinusitis, Adult EMERGENCY SERVICES MEDICATION LISTLista de Medicaciones de los Servicios de Emergencia Name JODI BOSTON MRN ([facility])-[id number] PLEASE READ THE FOLLOWING REGARDING YOUR MEDICATIONS [...] doses are changed, or new medications (including gjsv-bzp-agcdwas products) are added. If you have any [...] TAKE UNTIL YOU TALK TO YOUR DOCTORNone [place] [address] [facility] Department Discharge Instructions Name: TEJ JODI Smith Current Date: 10/10/2017 14:43:31 : 1995 12:00 PM Primary Physician: Physician, No PCP We would like to thank you for choosing [facility] for your emergency medical needs. We examined [...] health of those around you. Call the [place] [employer] at 5-871-JWNT-[place] or the [place] [employer] at [phone]-UKE-3572 for more information.High blood pressure: Your screening blood pressure today was 115 mm Hg / . Hypertension (high blood pressure) is blood pressure over 120/80. People with hypertension should contact their primary care provider within 30 days to follow up. Check your patient portal for additional blood pressure information.Immunizations:I mmunization is a way to protect against deadly infections. Discuss this with your child's automatic coin machine mechanic, or Public Health Department. Your family practice doctor can determine if you need pneumonia or flu vaccine. [facility] Department can be reached at .Domestic Violence:If [...] suicide hotline, anytime day or night, at 0-640-661-JRTW. Pharmacy Information:Below is a list of 24 hour pharmacies that we are aware of. We suggest that you call the specific pharmacy for their hours before traveling to a location. Hours may vary on holidays. [facility] [place] [id number] [place] [address] [phone] [place] [address] [phone] [place] [address] [phone] [place] [address] [phone] [place] [address] [phone] [place] [address] [phone] [place] [address] [phone] Take all medications as directed. If you need prescription assistance, contact the following agencies:?? Partnership for Prescription Assistance at or www.TROVE Predictive Data Sciencex.org?? [facility] Best Rx at or www.Westinghouse Solarrx.org?? www.Dropost.itRx.ClickSquared is a site with many valuable coupons Patient Education Materials JODI BOSTON has been given the following patient education materials: [facility] [address] [place], [place] [address]Phone: Kcjk Release FormThis notice verifies that your employee [...] Document Reviewed: 07/20/2012Xenaevier Interactive Patient Education ?2016 Shyp.ENTPharyngitisPharyngit is is redness, pain, and swelling (inflammation) [...] urine clear or pale yellow. ?Only take ydmw-ueh-aihefqo or prescription medicines as directed by your [...] Document Reviewed: 03/13/2014Prieto Interactive Patient Education ?2016 Shyp.Strep ThroatStrep throat is an infection of the [...] Document Reviewed: 10/29/2015Xenaevcarli Interactive Patient Education ?[address] [facility].Emergency MedicineUpper Respiratory Infection, AdultMost upper respiratory [...] Document Reviewed: 10/11/2014Prieto Interactive Patient Education ?2016 Shyp.Acute BronchitisBronchitis is inflammation of the airways that [...] Document Reviewed: 12/27/2013Prieto Interactive Patient Education ?2016 [employer]><><><><><><><><><><>< ><><><><><><><><><><><><><> Patient Visit Summary Signature JODI BOSTON has been given the following list of patient education materials, prescriptions and follow-up instructions: TEJ Whitten MORGAN A, have received the above patient education materials/instructions and have verbalized understanding: Date Time Patient Signature Date Time Provider Signature [facility] ED Physician Noteson 018 ED Physician Notes Patient: NORIS BOSTON MRN: ([id number] Age: 22 years Sex: Female : 1995 Associated Diagnoses: None Author: Gabriel Hutchinson History of Present Illness I have introduced myself as the PA and informed the patient of the supervising/ collaborating physician who is available upon request. I have discussed the case with the ED physician who participated in the decisions regarding any therapeutic interventions. Physician: Dr. RadfordXzrurj06-dolx-yav white female with history of heart murmur [...] congestion and mild cough. She used numerous ccyp-bpb-kwbflqb medications and thought that she was getting [...] Upper Respiratory Infection, Adult, AA-[employer] work release. ([id number]). Follow up with: ; [facility] Within Follow-up as needed This is [...] Chief Complaint-Triage Fever, Cough/ST, Congestion . [facility] ED Physician Notes PDF [facility] XR Chest 2 Viewson 8 XR Chest 2 views STUDY: Chest two vie ws dated 10/10/2017 1:59 PM.COMPARISON: None.HISTORY: Cough. Fever. 3 days of symptoms. Back pain. Smoking history.FINDINGS: The heart and mediastinum are not enlarged. Vasculature is not increased. No acute consolidation, effusion or pneumothorax is identified.IMPRESSION: No acute cardiopulmonary disease identified. Immediate final results were provided per protocol.Roland thanks you for the opportunity to care for your patient. Workstation ID: [id number] FINAL REPORT Dictated By: Marcos Dueñas MD 10/10/2017 14:01Assigned Physician: Marcos Dueñas MDReviewed and Electronically Signed By: Marcos Dueñas MD 10/10/2017 14:01Transcribed by: HELEN 10/10/2017 14:01Technologist: [facility] BMPon 05-07-2017 Anion gap 3 molar conc 14 mmol/L Invalid Interpretation Code 10 - 20 mmol/L [facility] Calcium mass conc 9.0 mg/dL Invalid Interpretation Code 8.4 - 10.2 mg/dL [facility] Chloride molar conc 102 mmol/L Invalid Interpretation Code 98 - 108 mmol/L [facility] Creatinine mass conc 0.52 mg/dL Invalid Interpretation Code 0.4 - 1.1 mg/dL [facility] GFR/1.73 sq M predicted among non-blacks MDRD vol rate/area (S/P/Bld) The eGFR should be used for monitoring renal function only and not for medication dosing. Invalid Interpretation Code [facility] GFR/1.73 sq M.predicted CKD-EPI vol rate/area (S/P/Bld) 137 mL/min/1.73 m2 Invalid Interpretation Code >=60 [facility] Glucose mass conc 88 mg/dL Invalid Interpretation Code 65 - 99 mg/dL [facility] HCO3 molar conc 27 mmol/L Invalid Interpretation Code 21 - 32 mmol/L [facility] Potassium molar conc 3.7 mmol/L Invalid Interpretation Code 3.5 - 5.1 mmol/L [facility] Sodium molar conc 139 mmol/L Invalid Interpretation Code 135 - 145 mmol/L [facility] Urea nitrogen mass conc 13 mg/dL Invalid Interpretation Code 8 - 25 mg/dL [facility] Urea nitrogen/Creatinine mass ratio 25.0 mg/mg High 10.0 - 20.0 [facility] CBC Auto Differentialon 04-19 Basophils Auto #/vol (Bld) 0.02 K/mcL Invalid Interpretation Code 0.00 - 0.30 [facility] Basophils/100 WBC Auto (Bld) 0.3 % Invalid Interpretation Code [facility] Eosinophils Auto #/vol (Bld) 0.06 K/mcL Invalid Interpretation Code 0.00 - 0.50 [facility] Eosinophils/100 WBC Auto (Bld) 0.8 % Invalid Interpretation Code [facility] Erythrocyte distribution width Auto Entitic volume (RBC) 18.4 % High 11.6 - 14.8 % [facility] Hematocrit Auto Volume Fraction (Bld) 36.9 % Invalid Interpretation Code 36 - 46 % [facility] Hemoglobin mass conc (Bld) 11.4 g/dL Low 12 - 16 g/dL [facility] Immature granulocytes #/vol (Bld) 0.02 K/mcL Invalid Interpretation Code 0.00 - 0.30 [facility] Immature granulocytes/100 WBC (Bld) 0.30 % Invalid Interpretation Code [facility] Comment on above: The IG parameter is the percentage of metamyelocytes, myelocytes, and promyelocytes. Lymphocytes Auto #/vol (Bld) 2.18 K/mcL Invalid Interpretation Code 0.90 - 4.00 [facility] Lymphocytes/100 WBC Auto (Bld) 28.3 % Invalid Interpretation Code [facility] MCH Auto Entitic mass (RBC) 24.6 pg Low 26 - [address] [facility] MCHC Auto mass conc (RBC) 30.9 g/dL Low 31 - 37 g/dL [facility] MCV Auto Entitic volume (RBC) 79.7 fL Low 80 - [address] [facility] Monocytes Auto #/vol (Bld) 0.56 K/mcL Invalid Interpretation Code 0.30 - 0.90 [facility] Monocytes/100 WBC Auto (Bld) 7.3 % Invalid Interpretation Code [facility] Neutrophils Auto #/vol (Bld) 4.85 K/mcL Invalid Interpretation Code 1.70 - 7.00 [facility] Neutrophils/100 WBC Auto (Bld) 63.0 % Invalid Interpretation Code [facility] Nucleated RBC #/vol (Bld) 0.00 K/mcL Invalid Interpretation Code 0.00 - 0.00 [facility] Nucleated RBC/100 WBC Ratio (Bld) 0.0 % Invalid Interpretation Code [facility] Platelet mean volume Auto Entitic volume (Bld) 11.3 fL Invalid Interpretation Code 9 - 15.[address] [facility] Platelets Auto #/vol (Bld) 277 K/mcL Invalid Interpretation Code 150 - 400 [facility] RBC Auto #/vol (Bld) 4.63 M/mcL Invalid Interpretation Code 4.00 - 5.20 [facility] WBC Auto #/vol (Bld) 7.69 K/mcL Invalid Interpretation Code 4.50 - 11.00 [facility] CBC w/ Diffon 05-07-2017 CBC w/ Diff The following orders were created for panel order CBC w/ Diff. Procedure Abnormality Status --------- ------ CBC Auto Differential[[id number]] Abnormal Final result Please view results for these tests on the individual orders. Invalid Interpretation Code [employer] Work Phone: Gold Topon 05-07-2017 Extra Tube Hold for add-ons. Invalid Interpretation Code [facility] Comment on above: Auto resulted. [place] Drawon 05-07-2017 [place] [facility] The following orders were created for panel order [place] [facility]. Procedure Abnormality Status --------- ------ Gold Top[[id number]] Final result Light Blue Top[[id number]] Final result Wright Top[[id number]] Final result Whitetail Top[[id number]] Final result Please view results for these tests on the individual orders. Invalid Interpretation Code [facility] Work Phone: Urinalysison 05-07-2017 Bacteria Auto Ql (U) None Seen Invalid Interpretation Code None Seen /hpf [facility] Bilirubin Ql (U) Negative Invalid Interpretation Code Negative [facility] Clarity Refractometry automated Nom (U) Clear Invalid Interpretation Code Clear [facility] Color Auto Nom (U) Yellow Invalid Interpretation Code Colorless, Yellow [facility] Epithelial cells.squamous Auto #/area (Urine sed) <1 Invalid Interpretation Code 0 - 4 /hpf [facility] Glucose Automated test strip mass conc (U) Negative Invalid Interpretation Code Negative mg/dL [facility] Hemoglobin Automated test strip Ql (U) Negative Invalid Interpretation Code Negative [facility] Interpretation and review of laboratory results Abnormal Invalid Interpretation Code [facility] Ketones mass conc (U) Negative Invalid Interpretation Code Negative mg/dL [facility] Leukocyte esterase Automated test strip Ql (U) Negative Invalid Interpretation Code Negative [facility] Mucus Auto #/area (Urine sed) Few Abnormal None Seen, Rare /lpf [facility] Nitrite Automated test strip Ql (U) Negative Invalid Interpretation Code Negative [facility] pH Test strip (U) 6.0 [pH] Invalid Interpretation Code 5.0 - 7.0 [facility] Protein mass conc (U) 30 Abnormal Negative mg/dL [facility] Comment on above: False positive resul ts may occur in urines with large amounts of hemoglobin, pH greater than 8.0, contrast medium, or disinfectants including ammonium compounds. Specific gravity Automated test strip Relative Density (U) 1.021 1 Invalid Interpretation Code 1.005 - 1.025 [facility] Urobilinogen Test strip Qn (U) <2.0 Invalid Interpretation Code <2.0 mg/dL [facility] WBC Auto #/area (Urine sed) 1 /hpf Invalid Interpretation Code 0 - 5 [facility] Urinalysis Microscopic examinat ion is performed on all urinalysis samples and only positive findings are reported. The test for blood on the chemical analytic portion of urinalysis may also be positive due to hemoglobinuria and myoglobinuria and if red blood cells are present they are quantified by microscopic examination. Invalid Interpretation Code [facility] Urine Pregnancyon 05-07-2017 HCG ( test) Ql (U) Negative Invalid Interpretation Code Negative [facility] Interpretation and review of laboratory results Normal Invalid Interpretation Code [facility] Vital Signs Date Time Vital Sign Value Performing Clinician Facility 12-27-2017 11:36-0400 BMI (Body Mass Index) 23.64 kg/m2 [facility] 12-27-2017 11:36-0400 Body Temperature 98.29 [degF] [facility] 12-27-2017 11:36-0400 BP Diastolic 83 mm[Hg] [facility] 12-27-2017 11:36-0400 BP Systolic 121 mm[Hg] [facility] 12-27-2017 11:36-0400 Height 162.6 cm [facility] 12-27-2017 11:36-0400 Pulse (Heart Rate) 84 /min [facility] 12-27-2017 11:36-0400 Pulse Oximetry 97 % [facility] 12-27-2017 11:36-0400 Respiratory Rate 12 /min [facility] 12-27-2017 11:36-0400 Weight 62.46 kg [facility] 05-08-2017 13:44-0400 BP Diastolic 71 mm[Hg] Solis French [facility] Work Phone: 05-08-2017 13:44-0400 BP Systolic 118 mm[Hg] [facility] Work [facility]: 05-08-2017 13:44-0400 Pulse (Heart Rate) 68 /min Solismallika French [facility] Work Phone: 05-08-2017 13:44-0400 Pulse Oximetry 99 % [facility] Work [facility]: 05-08-2017 13:44-0400 Respiratory Rate 18 /min [facility] Work Phone: 05-08-2017 10:49-0400 BMI (Body Mass Index) 23.17 kg/m2 [facility] Work Phone: 05-08-2017 10:49-0400 Body Temperature 98.29 [degF] [facility]is [facility] Work Phone: 05-08-2017 10:49-0400 Height 162.6 cm Solis [facility] Work Phone: 05-08-2017 10:49-0400 Weight 61.24 kg Solis [facility] Work Phone: 05-07-2017 19:00-0400 BP Diastolic 62 mm[Hg] Henri Pulliam [facility] Work Phone: 05-07-2017 19:00-0400 BP Systolic 108 mm[Hg] Henri Pulliam [facility] Work Phone: 05-07-2017 19:00-0400 Pulse (Heart Rate) 63 /min Henri Pulliam [facility] Work Phone: 05-07-2017 19:00-0400 Respiratory Rate 16 /min Henri Pulliam [facility] Work Phone: 05-07-2017 16:14-0400 BMI (Body Mass Index) 22.86 kg/m2 Henri Pulliam [facility] Work Phone: 05-07-2017 16:14-0400 Body Temperature 98.8 [degF] Henri Pulliam [facility] Work Phone: 05-07-2017 16:14-0400 Height 162.6 cm Henri Pulliam [facility] Work Phone: 05-07-2017 16:14-0400 Pulse Oximetry 100 % Henri Pulliam [facility] Work Phone: 05-07-2017 16:14-0400 Weight 60.42 kg Henri Pulliam [facility] Work Phone: Encounters Encounter Date Encounter Type Care Provider Facility Start: 08-28-2023 Clinisync Result Encounter Jeri GARRETT Work Phone: [facility] Unsolicited Start: 08-28-2023 Clinisync Result Encounter Jeri GARRETT Work Phone: [facility] Unsolicited Start: 07-09-2021 End: 07-12-2021 ambulatory D[facility] Start: 12-27-2017 End: 12-27-2017 Ambulatory ROXANE BEASLEY [facility] Start: 12-27-2017 End: 12-27-2017 Office/outpatient visit, est, level 3 Mari Janeen Socrates Work Phone: [facility] [address] Start: 11-21-2017 End: 11-21-2017 Emergency department patient visit No PCP Physician Facility:[facility] Start: 10-10-2017 End: 10-10-2017 Emergency department patient visit No PCP Physician Facility:[facility] Start: 05-08-2017 End: 05-08-2017 Emergency department patient visit ROXANE SIMS [facility] Start: 05-08-2017 End: 05-08-2017 Emergency department patient visit Solis French Work Phone: [facility] Comment on above: Trapezius muscle spa sm (Primary Dx) Start: 05-07-2017 End: 05-07-2017 Emergency department patient visit HENRIVon MCCORMICK ARRON [facility] Start: 05-07-2017 End: 05-07-2017 Emergency department patient visit Henri Pulliam Work Phone: [facility] Comment on above: Nonintractable heada cheryle, unspecified chronicity pattern, unspecified headache type (Primary Dx) Procedures Date Procedure Procedure Detail Performing Clinician Start: 08-28-2023 ALL CBC WITH AUTO DIFF Jeri GARRETT Work Phone: Plan of Treatment Date Care Activity Detail Author Start: 08-31-2023 End: 08-31-2023 Patient encounter procedure 08/31/2023 4:00 PM EST Routine [facility] [address] [place] [id number] Timothy Bourgeois, DO [address] [place] [address] Third trimester [facility] Comment on above: Third trimester preg dinora Start: 03-20-2023 Influenza vaccination Influenz a Vaccine (#1) [facility] Start: 03-20-2018 Influenza vaccination SEQUENTI AL INFLUENZA VACCINE (Season Ended) [facility] Start: 03-20-2017 Influenza vaccination SEQUENTI AL INFLUENZA VACCINE (#1) [facility] Work Phone: Start: 2007 Vaccination for luciana n papillomavirus HPV VACCINES (1 of 3 - Female 3 Dose Series) [facility] Work Phone: Start: 1995 Adult depression screening assessment DEPRESSION SCREENING (PHQ9) [facility] Start: 1996 Screening for malign ant neoplasm of cervix PAP SMEAR [facility] Work Phone: Start: 1995 SUBSTANCE ABUSE SCRE ENING (AUDIT-C) SUBSTANCE ABUSE SCREENING (AUDIT-C) [facility] Start: 1996 Tetanus vaccination TETANUS EVERY 10 YR [facility] Work Phone: Streptococcus pyogen es [Presence] in Throat by Organism specific culture Strep A Culture, Throat Routine Sore throat Ordered: 12/27/2017 [facility] Immunizations Immunization Date Immunization Notes Care Provider Mateo francisco 05-08-2016 influenza, seasonal, injectable Henri Pulliam [facility] Work Phone: 05-08-2016 influenza virus vaccine, unspecified formulation Jeri GARRETT Work Phone: [facility] Payers Date Payer Category Payer Unknown [id number] 2017 Unknown [id number] 2016 Unknown Social History Date Type Detail Facility Start: 12-27-2017 Tobacco smoking stat [facility] Current every day smoker [facility] History of tobacco use Cigarette Smoker [facility] Work Phone: Start: 12-27-2017 Cigarettes smoked current (pack per day) - Reported [facility] Sex Assigned At Not on file [facility] Work Phone: Start: 05-07-2017 End: 05-08-2017 Tobacco smoking status [facility] Former smoker [facility] Work Phone: Tobacco smoking stat [facility] Tobacco smoking consumption unknown [facility] Start: 02-17-2023 [facility] Start: 1995 Sex Assigned At Female [facility] Start: 04-02-2023 Gender identity Identifies as female gender (finding) [facility] Start: 04-02-2023 Sexual orientation Bisexual (finding ) [facility] Instructions * Patient Instructions - Mari [...] 1 cup of warm water. Take an vull-bbq-rcqdwbw pain medicine, such as acetaminophen (Tylenol), ibuprofen (Advil, Motrin),or naproxen (Aleve). Read and follow all instructions on the label. Be careful when taking svdk-nic-rrnsdqj cold or flu medicines and Tylenol at [...] soup, may help decrease throat pain. Use htvd-ago-hauayxl throat lozenges to soothe pain. Regular cough [...] Log into your personal health record on [email or web address] and enter U420 in the Education box to learn more about Sore Throat: Care Instructions. Current as of: November 28, 2016 Content Version: 11.6 5055-8177 [employer]. Care instructions adapted under license by your healthcare professional. If you have questions about a medical condition or this instruction, always ask your healthcare professional. [employer] disclaims any warranty or liability for your [...] rest if you feel tired. Take an xyji-sak-toauzbg pain medicine if needed, such as acetaminophen (Tylenol), ibuprofen (Advil, Motrin), or naproxen (Aleve). Read and follow all instructions on the label. Be careful when taking molr-ufv-ntjqtee cold or flu medicines and Tylenol at [...] Log into your personal health record on [email or web address] and enter L906 in the Education box to learn more about Viral Infections: Care Instructions. Current as of: June 06, 2017 Content Version: 05.25-2018 [employer]. Care instructions adapted under license by your healthcare professional. If you have questions about a medical condition or this instruction, always ask your healthcare professional. [employer] disclaims any warranty or liability for your [...] your doctor if you can take an hpwy-xjr-bvknxmi medicine. Be careful not to take pain [...] Log into your personal health record on [email or web address] and enter M271 in the Education box to learn more about Headache: Care Instructions. Current as of: May 02, 2016 Content Version: 11.2 7333-9178 [employer]. Care instructions adapted under license by your healthcare professional. If you have questions about a medical condition or this instruction, always ask your healthcare professional. [employer] disclaims any warranty or liability for your use of this information. in this encounter Additional Source Comments INFORMATION SOURCE (unrecogn ized section and content) DATE CREATED AUTHOR 01/05/2018 [facility] DATE CREATED AUTHOR AUTHOR'S ORGANIZ ATION 01/12/2018 [facility] DATE CREATED AUTHOR AUTHOR'S ORGANIZ ATION 02/02/2018 [facility] DATE CREATED AUTHOR AUTHOR'S ORGANIZ ATION 07/12/2021 [facility] Reason for Visit (unrecogniz ed section [...] the patient. I discussed the patient with LABOR UTILIZATION SUPERINTENDENT/PA. I agree with the LABOR UTILIZATION SUPERINTENDENT/PA treatment plan. I agree with the LABOR UTILIZATION SUPERINTENDENT/PA plan of care. I agree with the LABOR UTILIZATION SUPERINTENDENT/PA dispo as documented. The patient has been [...] Procedure Abnormality Status --------- ------ CBC Auto Differential[[id number]] Abnormal Final result Please view results for these tests on the individual orders. RAINBOW DRAW Narrative: The following orders were created for panel order [place] Draw. Procedure Abnormality Status --------- ------ Gold Top[[id number]] In process Light Blue Top[[id number]] In process Wright Top[[id number]] In process Whitetail Top[[id number]] In process Please view results for these [...] note may be different from the original. [facility] ED Resident Note: NAME: Jodi Boston 22 y.o. CSN: [id number] PCP: Roxane Beasley DO History: Chief Complaint: [...] PMSx: Past Surgical History: Procedure Laterality Date Flight Engineer Performance Qualified WISDOM TOOTH EXTRACTION FAM. 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 RAINBOW DRAW Narrative: The following orders were created for panel order [place] Draw. Procedure Abnormality Status --------- ------ Gold Top[[id number]] In process Light Blue Top[[id number]] In process Wright Top[[id number]] In process Whitetail Top[[id number]] In process Please view results for these [...] Given 05/07/171728) This note was generated by [employer] voice recognition software and as a result grammatical or spelling errors may occur using this program. Clinical Impression: SNOMED CT(R) 1. Nonintractable headache, unspecified chronicity pattern, unspecified headache type HEADACHE Disposition: Patient is being discharged to home New Prescriptions No medications on file Alyssa Tellez DO ED Resident Physician [facility] (Please note that portions of this note have been completed with a voice recognition software. Efforts were made to correct any errors, but occasionally words are mis-transcribed.) Alyssa Tellez DO Resident 05/07/17 6861 SECONDARY ASSESSMENT - Breathing regular and unlabored, [...] wall movement. Circulation: Skin warm and dry, COLOR ROOM ATTENDANT < 3 seconds, 2+ Bilateral radial pulses. [...] to the room to provide pt with DC/web site administrator/care instructions. Pt verbalizes understanding with no further concerns at this time. This RN to the room to provide pt with Ice to apply to the back of her neck for comfort measures. Formatting of this note may be different from the original. 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 All imaging has been read by a Radiologist. Eleno Thao PA-C 05/08/17 1315 Pt presents to the ED c/o of severe neck pain. [facility] for migraine at which time [...] night, pt was seen in ED at [facility] yesterday treated for migraine headache, denies [...] BE BASED ON THE PRIMARY CLINICAL RECORDS. [employer] [facility]. provides no warranty or guarantee of the accuracy or completeness of information in this document.
== END 2023-10-20 08:39 | disposition home or self-care (01) ==
LOC: NOMS 08:38
PROVIDERS: Visit Provider Obstetrics & Gynecology
DX: O36.60X0 Maternal care for excessive fetal growth, unspecified trimester, not applicable or unspecified (principal); Z3A.38 38 weeks gestation of pregnancy
CPT/HCPCS: 76816

== ENCOUNTER 2023-10-30 13:58 | Outpatient (OUT) | payer OTHER, SELFPAY ==
--- NOTE | 2023-10-30 | US_ITS ---
[address] [address] Patient Name: JODI BURNHAM MRN: [id number] date: 1995 Sex: F Assigned Patient Location: [facility] Current Patient Location: [facility] Accession/Order Number: [id number] Exam Date: 10/30/2023 14:02 Report Date: 10/30/2023 15:17 At the request of: JANKI STOREY Procedure: US OB BPP w non-stress EXAMINATION: US OB BPP w non-stress HISTORY: Excessive growth O36.63X0 COMPARISON: Ultrasound OB growth 10/20/2023 TECHNIQUE: Ultrasound biophysical profile was performed in the radiology department. BREATHING MOVEMENTS: 0.0 GROSS BODY MOVEMENTS: 2.0 TONE: 2.0 QUALITATIVE AMNIOTIC FLUID VOLUME: 2.0 PRESENTATION: CEPHALIC HEART RATE: 130.4 bpm bpm. AMNIOTIC FLUID VOLUME: 22.2 cm GESTATIONAL AGE: 38 weeks 3 days CONCLUSION: Total biophysical profile score 6.0. Electronically authenticated by: MIREYA LOW Date: 10/30/2023 15:17
[2023-10-30 14:43] VITALS: BP 113/70; PULSE 88
== END 2023-10-30 15:15 | disposition home or self-care (01) ==
LOC: US 13:59 → FBC 14:01
PROVIDERS: Visit Provider Obstetrics & Gynecology
DX: O36.63X0 Maternal care for excessive fetal growth, third trimester, not applicable or unspecified (principal); Z3A.38 38 weeks gestation of pregnancy
CPT/HCPCS: 76818

== ENCOUNTER 2023-11-03 05:02 | Inpatient (IN) | payer OTHER, SELFPAY ==
[2023-11-03] VITALS (16 sets, daily range): BP systolic 106–129; BP diastolic 56–76; PULSE 71–103; TEMP 36.4–36.8
--- OUTSIDE RECORDS SUMMARY | 2023-11-03 05:03 | XMS_ITS | CCD ---
Author Organization [facility] Care Team Providers Care Instant Powder Supervisor Name Role Phone Ramos Roxane Sims Unavailable [...] Propensity to adverse reactions 08-26-19 19 Rash [facility] Healthcare Work Phone: (1 source) Prochlorperazine Drug Allergy 05-07-20 18 [facility] Medications Current Medications Medication Drug Class(es) [...] for constipation 30 capsule 5 08/05/2023 Active [id number] 0.3 ml EPINEPHrine 1 mg/ml auto-injector (4 [...] parts viscous lidocaine 2%, diphenhydramine 12.5mg/5mL, maalox 085mw-644ah-51vr/5mL (1 source) Start: 018 End: 018 magic mouthwash susp equal parts viscous lidocaine 2%, diphenhydramine 12.5mg/5mL, maalox 749eq-340fo-88wv/5mL Swish and spit 5 mL every 6 [...] morning. 360 capsule 0 08/05/2023 08/04/2024 Active Nbuzza-MjHff-ZuYrs-FA-C A-[place] (Complete Annette DHA) 29-1-200 & 200 MG misc (1 source) Start: 023 Tfrbkd-LqTxc-QwWbj-FA- [place] (Complete DHA) 29-1-200 & 200 MG misc [...] WITH AUTO DIFFon BASOPHILS ABSOLUTE AUTO 0.0 [facility] Basophils/100 WBC (Bld) 0.1 % Low 0.2 - 2.0 % [facility] Eosinophils/100 WBC (Bld) 0.4 % Low 0.9 - 7.0 % [facility] Erythrocyte distribution width (RBC) [Ratio] 13.4 % 11.0 - 15.0 % [facility] Hematocrit (Bld) [Volume fraction] 29.5 % Low 36.0 - 48.0 % [facility] Hemoglobin (Bld) [Mass/Vol] 9.2 g/dL Low 12.0 - 16.0 g/dL [facility] IMMATURE GRANULOCYTES ABS AUTO 0.08 High [facility] Immature granulocytes/100 WBC (Bld) 0.8 % High 0.0 - 0.5 % [facility] Interpretation and review of laboratory results Abnormal [facility] LYMPHOCYTES ABSOLUTE AUTO 1.8 [facility] Lymphocytes/100 WBC (Bld) 19.1 % Low 20.5 - 60.0 % [facility] MCH (RBC) [Entitic mass] 26.5 pg Low 26.7 - 34.0 pg [facility] MCHC (RBC) [Mass/Vol] 31.2 g/dL 29.9 - 35.2 g/dL [facility] MCV (RBC) [Entitic vol] 85.0 fL 81.0 - 99.0 fL [facility] MONOCYTES ABSOLUTE AUTO 0.8 [facility] Monocytes/100 WBC (Bld) 8.0 % 1.7 - 12.0 % [facility] NEUTROPHILS ABSOLUTE AUTO 6.9 High [facility] Neutrophils/100 WBC (Bld) 71.6 % 43.0 - 75.0 % [facility] Platelet mean volume (Bld) [Entitic vol] 10.5 fL 9.5 - 13.5 fL [facility] TB EO # 0.0 [facility] TB PLT 192 [facility] TB RBC 3.47 Low [facility] WBC 9.6 [facility] XR CHEST (2 VW)on 07-09-2021 XR [...] Kaba MD 07/09/21 Final result Normal [facility] POC Rapid Strep Aon 12-28-19 Interpretation and review of laboratory results Normal Invalid Interpretation Code [facility] Streptococcus pyogenes antigen presence Negative Invalid Interpretation Code Negative [facility] Basic Metabolic Panelon 05-0 Anion gap 8.0 mmol/L Normal 6.0-18.0 [facility] Comment on above: Result Comment: PLEA SE NOTE:The calculated Anion Gap(AGAP) does not include Potassium. Performed By: #### 6 9405-9, 65023-4e9, 3040-3, 97189-5, 80593-3 ####GERONIMO [facility], [address], [place]. Calcium 9.3 mg/dL Normal 8.9-10.3 [facility] Comment on above: Performed By: #### 6 9405-9, 75184-7z7, 3040-3, 92748-0, 55478- 3 ####[facility], [address] [place], [place]. Chloride 106 mmol/L Normal 98-107 [facility] Comment on above: Performed By: #### 6 9405-9, 89190-7d0, 3040-3, 46308-5, 66551- 3 ####[facility], [address], [place] CO2 25 mmol/L Normal 22-32 [facility] Comment on above: Performed By: #### 6 9405-9, 26914-8x9, 3040-3, 14953-4, 55226- 3 ####[facility], [address]. Creatinine 0.65 mg/dL Low 0.66-1.30 [facility] Comment on above: Performed By: #### 6 9405-9, 86769-5j3, 3040-3, 63985-3, 00999- 3 ####[facility], [address], [place], [place]. Glucose mass conc 88 mg/dL Normal 70-110 [facility] Comment on above: Performed By: #### 6 9405-9, 37770-1y3, 3040-3, 34823-4, 23684- 3 ####[facility], [address] Potassium molar conc 3.5 mmol/L Low 3.6-5.1 [facility] Comment on above: Performed By: #### 6 9405-9, 38712-3z3, 3040-3, 33845-6, 60268- 3 ####[facility], [address]. Sodium 139 mmol/L Normal 136-145 [facility] Comment on above: Performed By: #### 6 9405-9, 50743-3o7, 3040-3, 26787-9, 40911- 3 ####[facility], [address] [place], [place]. Urea nitrogen mass conc (BldV) 10 mg/dL Normal 8-20 [facility] Comment on above: Performed By: #### 6 9405-9, 06431-6i8, 3040-3, 98352-9, 35743- 3 ####[facility], [address] [place] [address]. CBCon 11-21-2017 Erythrocyte distribution width Entitic volume (RBC) 20.1 % High 11.0-14.8 [facility] Comment on above: Performed By: #### 2 4317-0 ####[facility], [address] [place] [address]. Erythrocytes (RBC) 4.57 million/mcL Normal 3.80-5.10 [facility] Comment on above: Performed By: #### 2 7-0 ####[facility], [address] [place] [address]. Hematocrit (HCT) 34.8 % Low 35.0-45.0 [facility] Comment on above: Performed By: #### 2 7-0 ####[facility], [address] [place] [address]. Hemoglobin mass conc (Bld) 11.3 g/dL Low 12.0-16.0 [facility] Comment on above: Performed By: #### 2 4317-0 ####[facility], [address] [place] [address]. MCH 24.8 Picograms Low 27.0-34.0 [facility] Comment on above: Performed By: #### 2 4317-0 ####[facility], [address] [place] [address]. MCHC mass conc (RBC) 32.6 g/dL Normal 32.0-36.0 [facility] Comment on above: Performed By: #### 2 4317-0 ####[facility], [address] [place], [place]. MCV 76.1 fL Low 80.0-97.0 [facility] Comment on above: Performed By: #### 2 4317-0 ####[facility], [address] [place], [place]. Platelet mean volume Entitic volume (Bld) 8.9 FL Normal 6.2-12.1 [facility] Comment on above: Performed By: #### 2 4317-0 ####[facility], [address] [place], [place]. Platelets 251 thou/mcL Normal 142-424 [facility] Comment on above: Performed By: #### 2 4317-0 ####[facility], [address]. WBC (Leukocytes) 6.4 thou/mcL Normal 4.6-10.2 [facility] Comment on above: Performed By: #### 2 4317-0 ####[facility], [address] [place] CT Abd and Pelvis w Contrast [...] emergency department following dictation on 11/21/2017 3:41 AM.[place] thanks you for the opportunity to care for your patient. Workstation ID: [id number] FINAL REPORT Dictated By: Pérez Queen MD 11/21/2017 03:38Assigned Physician: Pérez Queen MDReviewed and Electronically Signed By: Pérez Queen MD 11/21/2017 03:42Transcribed by: HELEN 11/21/2017 03:38Technologist: YRIS Normal [facility] Culture Urine + Susceptibili tyon 11-21-2017 Urine culture, bacteria [facility] MicrobiologyPROCEDURE: Culture Urine + SusceptibilitySOURCE: Urine BODY SITE:COLLECTED DATE/TIME: 11/21/2017 01:41 EDT RECEIVED DATE/TIME: 11/21/2017 01:41 EDTSTART DATE/TIME: 11/21/2017 01:41 EDT FREE TEXT SOURCE: URINEINTERFACED REPORTSFinal Report []Verified Date/Time/Personnel: 11/22/2017 12:17 EDT CONTRIBUTOR_SYSTEM, CO_PNORGANISMS USUALLY ASSOCIATED WITH VAGINAL,URETHRAL,AND/OR SKIN CONTAMINATION PRESENT. [facility] Comment on above: Performed By: #### 5 8077-9, 42890-6 ####[facility], [address] [place], [place].#### 630-4 ####[facility] [address] [place], [place] Depart Summaryon 11-21-2017 Depart Summary EMERGENCY DEPARTMENT DISCHARGE SUMMARYPATIENT NAME:JODI BOSTON MRN: (COL)-[id number]: 22 Years SEX: Female PHONE:[phone]: 11/20/2017 10:57 PM : 1995 ATTENDING PHYSICIAN:Ernestine Mckeon MD PCP: Physician, No PCP CHIEF COMPLAINT: abdominal pain Allergies Compazine (Anger)Problems Active No Chronic Problems DISCHARGE DIAGNOSIS: DISCHARGE INSTRUCTIONS: Work Release (CO-S) (CUSTOM); Abdominal Pain, Adult ED PHYSICIAN DOCUMENTATION: History of Present Aearupf39-mebf-cuo female with no significant medical history presents [...] Result(s): Date Order Results 11/20/2017 23:06 Specific [place] Urine POCT N 1.030 11/20/2017 23:06 pH Urine POCT N 5 11/20/2017 23:06 Urobilinogen Urine POCT N 0 mg/dL 11/21/2017 01:41 Appearance Urine A TURBID 11/21/2017 01:41 Specific [place] Urine H 1.032 11/21/2017 01:41 Blood Urine [...] any generalized worsening of your condition. Normal [facility] ED Pat Naa 11-21-2017 ED [place] [address] [facility] Department Discharge Instructions JODI BOSTON , Please [...] Servicios [facility] Emer[facility]cia Name JODI BOSTON MRN (COL)-[id number] PLEASE READ THE FOLLOWING REGARDING YOUR MEDICATIONS [...] doses are changed, or new medications (including crzy-xdf-hwvmmsh products) are added. If you have any [...] TAKE UNTIL YOU TALK TO YOUR DOCTORNone [place] [id number] [facility] Department Discharge Instructions Name: JODI BOSTON Current Date: 11/21/2017 03:50:01 : 1995 12:00 PM Primary Physician: Physician, No PCP We would like to thank you for choosing [facility] for your emergency medical needs. We [...] health of those around you. Call the [place] [employer] at 4-582-XKUG-[place] or the [place] [employer] at 7-354-DRH-4556 for more information.High blood pressure: Your screening blood pressure today was 108 mm Hg / . Hypertension (high blood pressure) is blood pressure over 120/80. People with hypertension should contact their primary care provider within 30 days to follow up. Check your patient portal for additional blood pressure information.Immunizations:I mmunization is a way to protect against deadly infections. Discuss this with your child's funnel coater, or Public Health Department. Your family practice doctor can determine if you need pneumonia or flu vaccine. [facility] can be reached at .Domestic Violence:If you [...] suicide hotline, anytime day or night, at 6-851-721-VRQT. Pharmacy Information:Below is a list of 24 hour pharmacies that we are aware of. We suggest that you call the specific pharmacy for their hours before traveling to a location. Hours may vary on holidays. [facility] [address] [address] [phone] [address] [phone] [address] [phone] [place] [address] [phone] [place] [address] [phone] [place] [address] [phone] [place] [address] [phone] Take all medications as directed. If you need prescription assistance, contact the following agencies:?? [facility] for Prescription Assistance at or www.Whisk (formerly Zypsee).org?? [facility] Rx at or www.Loaded Commercerx.org?? [employer] is a site with many valuable coupons [...] alleviate any discomfort you are experiencing:???Only take shfc-aii-zfvrylb or prescription medicines as directed by your [...] Document Reviewed: 03/15/2014[employer] Patient Education ?2016 [employer]><><><><><><><><><><>< ><><><><><><><><><><><>< ><> Patient Visit Summary Signature JODI BOSTON has been given the following list of patient education materials, prescriptions and follow-up instructions: TEJ Whitten MORGAN A, have received the above patient education materials/instructions and have verbalized understanding: Date Time Patient Signature Date Time Provider Signature Normal [facility] ED Physician Noteson 018 ED Physician [...] chronic problems Historical No qualifying dataProcedure/Surgical History Gipsy tooth.Medications Home No active home medications ED [...] department following dictation on 11/21/2017 3:41 AM. [place] thanks you for the opportunity to care [...] Urinalysis with Reflex Microscopic + Reflex Culture Erenstine Mckeon MD November 21, 2017 00:59 Completed [...] MD November 21, 2017 00:59 Completed Normal [facility] ED Physician Notes PDF Normal [facility] GFRaaon 11-21-2017 eGFR (black) mL/min/{1.73_m2} Normal [facility] Comment on above: Result Comment: The MDRD equation has not been validated for those over 70 years, women, patients with serious co-morbid conditions, or with extremes of bodysize, muscle mass of nutritional status. Performed By: #### 6 9405-9, 29306-6n0, 3040-3, 69648-6, 48146-7 ####[facility], [facility] [address], [place]. GFRbbon 11-21-2017 eGFR (non-black) mL/min/{1.73_m2} Normal [facility] Comment on above: Performed By: #### 6 9405-9, 67418-8m1, 3040-3, 63871-7, 08000- 3 ####[facility], [address], [place]. Hepatic Function Panelon Alanine aminotransferase (ALT) 15 Units/L Normal 14-63 [facility] Comment on above: Performed By: #### 6 9405-9, 60401-3y5, 3040-3, 86027-5, 57799- 3 ####[facility], [address], [place]. Albumin 4.2 g/dL Normal 3.5-4.8 [facility] Comment on above: Performed By: #### 6 9405-9, 68751-5k1, 3040-3, 44867-8, 56207- 3 ####[facility], [address] [place], [place]. Alkaline phosphatase (ALP) 36 Units/L Normal 32-91 [facility] Comment on above: Performed By: #### 6 9405-9, 02544-9p3, 3040-3, 98756-6, 76019- 3 ####[facility], [address] [place], [place]. Aspartate aminotransferase (AST) 19 Units/L Normal 15-41 [facility] Comment on above: Performed By: #### 6 9405-9, 25598-7m2, 3040-3, 80458-7, 69041- 3 ####[facility], [address] [place], [place]. Bilirubin (direct) 0.1 mg/dL Normal 0.1-0.5 [facility] Comment on above: Performed By: #### 6 9405-9, 67958-6p4, 3040-3, 82959-4, 12145- 3 ####[facility], [address] [place], [place]. Bilirubin (total) 0.6 mg/dL Normal 0.3-1.2 [facility] Comment on above: Performed By: #### 6 9405-9, 36992-5k1, 3040-3, 91771-5, 97051- 3 ####[facility], [address], [place]. Bilirubin.indirect mass conc 0.5 mg/dL Normal 0.0-1.0 [facility] Comment on above: Performed By: #### 6 9405-9, 84338-9s9, 3040-3, 54712-5, 73369- 3 ####[facility], [address] [place], [place]. Protein 6.9 g/dL Normal 6.1-7.9 [facility] Comment on above: Performed By: #### 6 9405-9, 08374-1z0, 3040-3, 43965-6, 15437- 3 ####[facility], [address] [place], [place]. Lipaseon 11-21-2017 Lipase 21 Units/L Low 22-51 [facility] Comment on above: Performed By: #### 6 9405-9, 15841-5a9, 3040-3, 36749-7, 64001- 3 ####[facility], [address] [place], [place]. Urinalysis Microscopicon Urine, amorphous crystals presence in sediment FEW Abnormal NONE/HPF [facility] Comment on above: Performed By: #### 5 8077-9, 84767-5 ####[facility], [address] [place], [place].#### 630-4 ####[facility] [address] [place], [place] Urine, bacteria in sediment FEW Abnormal NONE/HPF [facility] Comment on above: Performed By: #### 5 8077-9, 65930-4 ####[facility], [address] [place], [place].#### 630-4 ####[place] [address] [place], [place] Urine, erythrocytes in sediment by area 6 /[HPF] High 0-5 [facility] Comment on above: Performed By: #### 5 8077-9, 56822-6 ####[facility], [address], [place].#### 630-4 ####[place] [address] [place], [place] Urine, mucus presence in sediment MANY Abnormal NONE/LPF [facility] Comment on above: Performed By: #### 5 8077-9, 53555-0 ####[facility], [address] [place], [place] [address], [place].#### 630-4 ####[address] Urine, squamous cells in sediment MANY Abnormal FEW/LPF [facility] Comment on above: Performed By: #### 5 8077-9, 30311-3 ####[facility], [address] [place], [place] [address], [place].#### 630-4 ####[address] WBC Urine 6 /hpf High 0-5 [facility] Comment on above: Performed By: #### 5 8077-9, 21029-6 ####[facility], [address] [place], [place] [address], [place].#### 630-4 ####[address] Urinalysis with Microscopic Automatic with Reflexon 11-21-2017 Bilirubin Test strip mass conc (U) Negative Normal NEGATIVE [facility] Comment on above: Performed By: #### 5 8077-9, 09196-0 ####[facility], [address], [place].#### 630-4 ####[address],[place] Glucose Test strip mass conc (U) NORMAL Normal NORMAL [facility] Comment on above: Performed By: #### 5 8077-9, 62039-2 ####[facility], [address].#### 630-4 ####[place] [address] [place], [place] Ketones Test strip mass conc (U) 80MG/DL Abnormal NEGATIVE [facility] Comment on above: Performed By: #### 5 8077-9, 10950-7 ####[facility], [address].#### 630-[address] ####[address] Nitrite Test strip mass conc (U) Negative Normal NEGATIVE [facility] Comment on above: Performed By: #### 5 8077-, 78412-0 ####[facility], [address] [place], [place] [address]E.[place], [place].#### 630-4 ####[place] [address] [place], [place] Urine, appearance TURBID Abnormal CLEAR [facility] Comment on above: Performed By: #### 5 8077-9, 89425-9 ####[facility], [address] [place], [place] [address]E.[place], [place].#### 630-4 ####[place] [address] [place], [place] Urine, color TELLO Normal YELLOW [facility] Comment on above: Performed By: #### 5 8077-9, 53473-9 ####[facility], [address], [place].#### 630-4 ####[place] [address] [place], [place] Urine, hemoglobin presence 10/UL Abnormal NEGATIVE [facility] Comment on above: Performed By: #### 5 8077-9, 78430-8 ####[facility], [address] [place], [place].#### 630-4 ####[place] [address] [place], [place] Urine, leukocyte esterase presence 25/UL Abnormal NEGATIVE [facility] Comment on above: Performed By: #### 5 8077-9, 49798-3 ####[facility], [address]#### 630-4 ####[place] [address] [place], [place] Urine, pH 5.0 [pH] Normal 4.5-8.0 [facility] Comment on above: Performed By: #### 5 8077-9, 11271-1 ####[facility], [address] [place] [address].#### 630-4 ####[address] Urine, protein 100 mg/dL Abnormal NEGATIVE [facility] Comment on above: Performed By: #### 5 8077-9, 90118-8 ####[facility], [address] [place] [address].#### 630-4 ####[address] Urine, specific gravity 1.032 High 1.002-1.030 [facility] Comment on above: Performed By: #### 5 8077-9, 55657-8 ####[facility], [address].#### 630-4 ####[place] [address] [place], [place] Urobilinogen Test strip mass conc (U) NORMAL Normal NORMAL [facility] Comment on above: Performed By: #### 5 8077-9, 07484-8 ####[facility], [address].#### 630-4 ####[facility] [address] [place], [place] Depart Summaryon 10-10-2017 Depart Summary EMERGENCY DEPARTMENT DISCHARGE SUMMARYPATIENT NAME:JODI BOSTON MRN: -[id number]: 22 Years SEX: Female PHONE:[phone]: 10/10/2017 1:18 PM : 1995 ATTENDING PHYSICIAN:Yaneth Radford MD PCP: Physician, No PCP CHIEF COMPLAINT: Fever, Cough/ST, Congestion Allergies Compazine (Anger)Problems Active No Chronic Problems DISCHARGE DIAGNOSIS: DISCHARGE INSTRUCTIONS: [employer] work release. ([id number]); Upper Respiratory Infection, Adult; Acute Bronchitis; Pharyngitis; Strep Throat; Sinusitis, Adult ED PHYSICIAN DOCUMENTATION: History of Present Illness I have introduced myself as the PA and informed the patient of the supervising/ collaborating physician who is available upon request. I have discussed the case with the ED physician who participated in the decisions regarding any therapeutic interventions. Physician: Dr. RadfordEqzubk23-bmjx-zyz white female with history of heart murmur [...] congestion and mild cough. She used numerous igni-vrc-gkfpbmz medications and thought that she was getting [...] FOLLOW UP:FOLLOW-UP APPOINTMENTS: Provider: Specialty: Address: Date: [facility] [address] [facility] [address] (5) Follow-up as needed Comment: This is a [...] be significantly worsening instead of improving. Normal [facility] ED Pat Eduon 10-10-2017 ED Pat Edu [place] [id number] [facility] Department Discharge Instructions JODI BOSTON , Please provide this information to your Primary Care/Specialist Name : JODI BOSTON Current Date : 10/10/2017 14:43:31DOB : 1995 12:00 PM Primary Care Physician: Physician, [place] PCP Diagnosis : Follow-Up Instructions:JODI BOSTON has been given these follow-up instructions: FOLLOW-UP APPOINTMENTS: Provider: Specialty: Address: Date: [facility] [address] [facility] [address] (2) Follow-up as needed Comment: This is [...] and Patient Education(s) : [employer] work release. ([id number]); Upper Respiratory Infection, Adult; Acute Bronchitis; Pharyngitis; Strep Throat; Sinusitis, Adult EMERGENCY SERVICES MEDICATION LISTLista de Medicaciones de los Servicios de Emergencia Name JODI BOSTON MRN ([facility])-[id number] PLEASE READ THE FOLLOWING REGARDING YOUR MEDICATIONS [...] doses are changed, or new medications (including nzuw-qtt-tgbuzkd products) are added. If you have any [...] TAKE UNTIL YOU TALK TO YOUR DOCTORNone [place] [address] [facility] Department Discharge Instructions Name: TEJ JODI Smith Current Date: 10/10/2017 14:43:31 : 1995 12:00 PM Primary Physician: Physician, No PCP We would like to thank you for choosing [facility] for your emergency medical needs. We [...] health of those around you. Call the [place] [employer] at 4-445-FINZ-USA or the [employer] at 1-877-USW-8846 for more information.High blood pressure: Your screening blood pressure today was 115 mm Hg / . Hypertension (high blood pressure) is blood pressure over 120/80. People with hypertension should contact their primary care provider within 30 days to follow up. Check your patient portal for additional blood pressure information.Immunizations:I mmunization is a way to protect against deadly infections. Discuss this with your child's funnel coater, or Public Health Department. Your family practice doctor can determine if you need pneumonia or flu vaccine. [facility] can be reached at .Domestic [...] suicide hotline, anytime day or night, at 7-602-905-ETMY. Pharmacy Information:Below is a list of 24 hour pharmacies that we are aware of. We suggest that you call the specific pharmacy for their hours before traveling to a location. Hours may vary on holidays. [facility] [place] [id number] [place] [address] [phone] [place] [address] [phone] [place] [address] [phone] [place] [address] [phone] [place] [address] [phone] [place] [address] [phone] [place] [address] [phone] Take all medications as directed. If you need prescription assistance, contact the following agencies:?? Partnership for Prescription Assistance at or www.Horse Sense Shoesx.org?? [facility] Best Rx at or www.Loaded Commercerx.org?? www.QmerceRx.Feedback is a site with many valuable coupons Patient Education Materials JODI BOSTON has been given the following patient education materials: [facility] [id number] [place], [place] [address]Phone: Eugq Release FormThis notice verifies that your employee [...] Document Reviewed: 07/20/2012Xenaevier Interactive Patient Education ?2016 [employer].ENTPharyngitisPharyngit is is redness, pain, and swelling (inflammation) [...] urine clear or pale yellow. ?Only take xlbq-oae-grvvkvh or prescription medicines as directed by your [...] Document Reviewed: 03/13/2014Prieto Interactive Patient Education ?2016 [employer].Strep ThroatStrep throat is an infection of the [...] Document Reviewed: 10/29/2015Xenaevcarli Interactive Patient Education ?2016 [employer] [facility].Emergency MedicineUpper Respiratory Infection, AdultMost upper [...] Document Reviewed: 10/11/2014Prieto Interactive Patient Education ?2016 [employer].Acute BronchitisBronchitis is inflammation of the airways that [...] Document Reviewed: 12/27/2013Prieto Interactive Patient Education ?2016 [employer] Inc.<><><><><><><><><><><>< ><><><><><><><><><><><><><> Patient Visit Summary Signature JODI BOSTON has been given the following list of patient education materials, prescriptions and follow-up instructions: TEJ Whitten MORGAN A, have received the above patient education materials/instructions and have verbalized understanding: Date Time Patient Signature Date Time Provider Signature Normal [facility] ED Physician Noteson 018 ED Physician Notes Patient: NORIS BOSTON MRN: [id number] Age: 22 years Sex: Female : 1995 Associated Diagnoses: None Author: Gabriel Hutchinson History of Present Illness I have introduced myself as the PA and informed the patient of the supervising/ collaborating physician who is available upon request. I have discussed the case with the ED physician who participated in the decisions regarding any therapeutic interventions. Physician: Dr. RadfordEolsrs37-[id number]-vap white female with history of heart murmur [...] congestion and mild cough. She used numerous nlpb-hzk-snqoqst medications and thought that she was getting [...] Upper Respiratory Infection, Adult, [employer] work release. ([id number]). Follow up with: ; [facility] ([facility]) Within Follow-up as needed This is a [...] Chief Complaint-Triage Fever, Cough/ST, Congestion . Normal [facility] ED Physician Notes PDF Normal [facility] XR Chest 2 Viewson 8 XR Chest 2 views STUDY: Chest two vie ws dated 10/10/2017 1:59 PM.COMPARISON: None.HISTORY: Cough. Fever. 3 days of symptoms. Back pain. Smoking history.FINDINGS: The heart and mediastinum are not enlarged. Vasculature is not increased. No acute consolidation, effusion or pneumothorax is identified.IMPRESSION: No acute cardiopulmonary disease identified. Immediate final results were provided per protocol.[place] thanks you for the opportunity to care for your patient. Workstation ID: [id number] FINAL REPORT Dictated By: Marcos Dueñas MD 10/10/2017 14:01Assigned Physician: Marcos Dueñas MDReviewed and Electronically Signed By: Marcos Dueñas MD 10/10/2017 14:01Transcribed by: HELEN 10/10/2017 14:01Technologist: [facility] Normal [facility] BMPon 05-07-2017 Anion gap 3 molar conc 14 mmol/L Invalid Interpretation Code 10 - 20 mmol/L [facility] Calcium mass conc 9.0 mg/dL Invalid Interpretation Code 8.4 - 10.2 mg/dL [facility] Chloride molar conc 102 mmol/L Invalid Interpretation Code 98 - 108 mmol/L [facility] Creatinine mass conc 0.52 mg/dL Invalid Interpretation Code 0.4 - 1.1 mg/dL [facility] GFR/1.73 sq M predicted among non-blacks MDRD vol rate/area (S/P/Bld) The eGFR should be used for monitoring renal function only and not for medication dosing. Invalid Interpretation Code [facility] GFR/1.73 sq M.predicted CKD-EPI vol rate/area (S/P/Bld) 137 mL/min/1.73 m2 Invalid Interpretation Code >=60 [facility] Glucose mass conc 88 mg/dL Invalid Interpretation Code 65 - 99 mg/dL [facility] HCO3 molar conc 27 mmol/L Invalid Interpretation Code 21 - 32 mmol/L [facility] Potassium molar conc 3.7 mmol/L Invalid Interpretation Code 3.5 - 5.1 mmol/L [facility] Sodium molar conc 139 mmol/L Invalid Interpretation Code 135 - 145 mmol/L [facility] Urea nitrogen mass conc 13 mg/dL Invalid Interpretation Code 8 - 25 mg/dL [facility] Urea nitrogen/Creatinine mass ratio 25.0 mg/mg High 10.0 - 20.0 [facility] CBC Auto Differentialon 04-19 Basophils Auto #/vol (Bld) 0.02 K/mcL Invalid Interpretation Code 0.00 - 0.30 [facility] Basophils/100 WBC Auto (Bld) 0.3 % Invalid Interpretation Code [facility] Eosinophils Auto #/vol (Bld) 0.06 K/mcL Invalid Interpretation Code 0.00 - 0.50 [facility] Eosinophils/100 WBC Auto (Bld) 0.8 % Invalid Interpretation Code [facility] Erythrocyte distribution width Auto Entitic volume (RBC) 18.4 % High 11.6 - 14.8 % [facility] Hematocrit Auto Volume Fraction (Bld) 36.9 % Invalid Interpretation Code 36 - 46 % [facility] Hemoglobin mass conc (Bld) 11.4 g/dL Low 12 - 16 g/dL [facility] Immature granulocytes #/vol (Bld) 0.02 K/mcL Invalid Interpretation Code 0.00 - 0.30 [facility] Immature granulocytes/100 WBC (Bld) 0.30 % Invalid Interpretation Code [facility] Comment on above: The IG parameter is the percentage of metamyelocytes, myelocytes, and promyelocytes. Lymphocytes Auto #/vol (Bld) 2.18 K/mcL Invalid Interpretation Code 0.90 - 4.00 [facility] Lymphocytes/100 WBC Auto (Bld) 28.3 % Invalid Interpretation Code [facility] MCH Auto Entitic mass (RBC) 24.6 pg Low 26 - 34 pg [facility] MCHC Auto mass conc (RBC) 30.9 g/dL Low 31 - 37 g/dL [facility] MCV Auto Entitic volume (RBC) 79.7 fL Low 80 - 100 fL [facility] Monocytes Auto #/vol (Bld) 0.56 K/mcL Invalid Interpretation Code 0.30 - 0.90 [facility] Monocytes/100 WBC Auto (Bld) 7.3 % Invalid Interpretation Code [facility] Neutrophils Auto #/vol (Bld) 4.85 K/mcL Invalid Interpretation Code 1.70 - 7.00 [facility] Neutrophils/100 WBC Auto (Bld) 63.0 % Invalid Interpretation Code [facility] Nucleated RBC #/vol (Bld) 0.00 K/mcL Invalid Interpretation Code 0.00 - 0.00 [facility] Nucleated RBC/100 WBC Ratio (Bld) 0.0 % Invalid Interpretation Code [facility] Platelet mean volume Auto Entitic volume (Bld) 11.3 fL Invalid Interpretation Code 9 - 15.5 fL [facility] Platelets Auto #/vol (Bld) 277 K/mcL Invalid Interpretation Code 150 - 400 [facility] RBC Auto #/vol (Bld) 4.63 M/mcL Invalid Interpretation Code 4.00 - 5.20 [facility] WBC Auto #/vol (Bld) 7.69 K/mcL Invalid Interpretation Code 4.50 - 11.00 [facility] CBC w/ Diffon 05-07-2017 CBC w/ Diff The following orders were created for panel order CBC w/ Diff. Procedure Abnormality Status --------- ------ CBC Auto Differential[[id number]] Abnormal Final result Please view results for these tests on the individual orders. Invalid Interpretation Code [facility] Work Phone: Gold Topon 05-07-2017 Extra Tube Hold for add-ons. Invalid Interpretation Code [facility] Comment on above: Auto resulted. [place] Drawon 05-07-2017 [place] Draw The following orders were created for panel order [place]. Procedure Abnormality Status --------- ------ Gold Top[[id number]] Final result Light Blue Top[[id number]] Final result Wright Top[[id number]] Final result Olean Top[[id number]] Final result Please view results for these tests on the individual orders. Invalid Interpretation Code [facility] Work Phone: Urinalysison 05-07-2017 Bacteria Auto Ql (U) None Seen Invalid Interpretation Code None Seen /hpf [facility] Bilirubin Ql (U) Negative Invalid Interpretation Code Negative [facility] Clarity Refractometry automated Nom (U) Clear Invalid Interpretation Code Clear [facility] Color Auto Nom (U) Yellow Invalid Interpretation Code Colorless, Yellow [facility] Epithelial cells.squamous Auto #/area (Urine sed) <1 Invalid Interpretation Code 0 - 4 /hpf [facility] Glucose Automated test strip mass conc (U) Negative Invalid Interpretation Code Negative mg/dL [facility] Hemoglobin Automated test strip Ql (U) Negative Invalid Interpretation Code Negative [facility] Interpretation and review of laboratory results Abnormal Invalid Interpretation Code [facility] Ketones mass conc (U) Negative Invalid Interpretation Code Negative mg/dL [facility] Leukocyte esterase Automated test strip Ql (U) Negative Invalid Interpretation Code Negative [facility] Mucus Auto #/area (Urine sed) Few Abnormal None Seen, Rare /lpf [facility] Nitrite Automated test strip Ql (U) Negative Invalid Interpretation Code Negative [facility] pH Test strip (U) 6.0 [pH] Invalid Interpretation Code 5.0 - 7.0 [facility] Protein mass conc (U) 30 Abnormal Negative mg/dL [facility] Comment on above: False positive resul ts may occur in urines with large amounts of hemoglobin, pH greater than 8.0, contrast medium, or disinfectants including ammonium compounds. Specific gravity Automated test strip Relative Density (U) 1.021 1 Invalid Interpretation Code 1.005 - 1.025 [facility] Urobilinogen Test strip Qn (U) <2.0 Invalid Interpretation Code <2.0 mg/dL [facility] WBC Auto #/area (Urine sed) 1 /hpf Invalid Interpretation Code 0 - 5 [facility] Urinalysis Microscopic examinat ion is performed on all urinalysis samples and only positive findings are reported. The test for blood on the chemical analytic portion of urinalysis may also be positive due to hemoglobinuria and myoglobinuria and if red blood cells are present they are quantified by microscopic examination. Invalid Interpretation Code [facility] Urine Pregnancyon 05-07-2017 HCG ( test) Ql (U) Negative Invalid Interpretation Code Negative [facility] Interpretation and review of laboratory results Normal Invalid Interpretation Code [facility] Vital Signs Date Time Vital Sign Value Performing Clinician Facility 12-27-2017 11:36-0400 BMI (Body Mass Index) 23.64 kg/m2 [facility] 12-27-2017 11:36-0400 Body Temperature 98.29 [degF] [facility] 12-27-2017 11:36-0400 BP Diastolic 83 mm[Hg] [facility] 12-27-2017 11:36-0400 BP Systolic 121 mm[Hg] [facility] 12-27-2017 11:36-0400 Height 162.6 cm [facility] 12-27-2017 11:36-0400 Pulse (Heart Rate) 84 /min [facility] 12-27-2017 11:36-0400 Pulse Oximetry 97 % [facility] 12-27-2017 11:36-0400 Respiratory Rate 12 /min [facility] 12-27-2017 11:36-0400 Weight 62.46 kg [facility] 05-08-2017 13:44-0400 BP Diastolic 71 mm[Hg] Solis French [facility] Work Phone: 05-08-2017 13:44-0400 BP Systolic 118 mm[Hg] [facility] Work Phone: 05-08-2017 13:44-0400 Pulse (Heart Rate) 68 /min Solismallika French [facility] Work Phone: 05-08-2017 13:44-0400 Pulse Oximetry 99 % [facility] Work Phone: 05-08-2017 13:44-0400 Respiratory Rate 18 /min [facility] Work Phone: 05-08-2017 10:49-0400 BMI (Body Mass Index) 23.17 kg/m2 [facility] Work Phone: 05-08-2017 10:49-0400 Body Temperature 98.29 [degF] [facility] Work Phone: 05-08-2017 10:49-0400 Height 162.6 cm Solis [facility] Work Phone: 05-08-2017 10:49-0400 Weight 61.24 kg Solis [facility] Work Phone: 05-07-2017 19:00-0400 BP Diastolic 62 mm[Hg] Henri Pulliam [facility] Work Phone: 05-07-2017 19:00-0400 BP Systolic 108 mm[Hg] Henri Pulliam [facility] Work Phone: 05-07-2017 19:00-0400 Pulse (Heart Rate) 63 /min Henri Pulliam [facility] Work Phone: 05-07-2017 19:00-0400 Respiratory Rate 16 /min Henri Pulliam [facility] Work Phone: 05-07-2017 16:14-0400 BMI (Body Mass Index) 22.86 kg/m2 Henri Pulliam [facility] Work Phone: 05-07-2017 16:14-0400 Body Temperature 98.8 [degF] Henri Pulliam [facility] Work Phone: 05-07-2017 16:14-0400 Height 162.6 cm Henri Pulliam [facility] Work Phone: 05-07-2017 16:14-0400 Pulse Oximetry 100 % Henri Pulliam [facility] Work Phone: 05-07-2017 16:14-0400 Weight 60.42 kg Henri Pulliam [facility] Work Phone: Encounters Encounter Date Encounter Type Care Provider Facility Start: 08-28-2023 Clinisync Result Encounter Jeri GARRETT Work Phone: [facility] Unsolicited Start: 08-28-2023 Clinisync Result Encounter Jeri GARRETT Work Phone: [facility] Unsolicited Start: 07-09-2021 End: 07-12-2021 ambulatory DARY [facility] Start: 12-27-2017 End: 12-27-2017 Ambulatory ROXANE BEASLEY [facility] Start: 12-27-2017 End: 12-27-2017 Office/outpatient visit, est, level 3 Mari Janeen Socrates Work Phone: [facility] [address] Start: 11-21-2017 End: 11-21-2017 Emergency department patient visit No PCP Physician Facility:[facility] Start: 10-10-2017 End: 10-10-2017 Emergency department patient visit No PCP Physician Facility:[facility] Start: 05-08-2017 End: 05-08-2017 Emergency department patient visit ROXANE SIMS [facility] Start: 05-08-2017 End: 05-08-2017 Emergency department patient visit Solis French Work Phone: [facility] Emergency Department Comment on above: Trapezius muscle spa sm (Primary Dx) Start: 05-07-2017 End: 05-07-2017 Emergency department patient visit HENRIVon MCCORMICK ARRON [facility] Start: 05-07-2017 End: 05-07-2017 Emergency department patient visit Henri Pulliam Work Phone: [facility] Emergency Department Comment on above: Nonintractable heada cheryle, unspecified chronicity pattern, unspecified headache type (Primary Dx) Procedures Date Procedure Procedure Detail Performing Clinician Start: 08-28-2023 ALL CBC WITH AUTO DIFF Jeri GARRETT Work Phone: Plan of Treatment Date Care Activity Detail Author Start: 08-31-2023 End: 08-31-2023 Patient encounter procedure 08/31/2023 4:00 PM EST Routine [facility] [address] [place] [id number] Timothy Bourgeois, DO [address] [place] [address] Third trimester [facility] Comment on above: Third trimester preg dinora Start: 03-20-2023 Influenza vaccination Influenz a Vaccine (#1) [facility] Start: 03-20-2018 Influenza vaccination SEQUENTI AL INFLUENZA VACCINE (Season Ended) [facility] Start: 03-20-2017 Influenza vaccination SEQUENTI AL INFLUENZA VACCINE (#1) [facility] Work Phone: Start: 2007 Vaccination for luciana n papillomavirus HPV VACCINES (1 of 3 - Female 3 Dose Series) [facility] Work Phone: Start: 1996 Adult depression screening assessment DEPRESSION SCREENING (PHQ9) [facility] Start: 1996 Screening for malign ant neoplasm of cervix PAP SMEAR [facility] Work Phone: Start: 1995 SUBSTANCE ABUSE SCRE ENING (AUDIT-C) SUBSTANCE ABUSE SCREENING (AUDIT-C) [facility] Start: 1996 Tetanus vaccination TETANUS EVERY 10 YR [facility] Work Phone: Streptococcus pyogen es [Presence] in Throat by Organism specific culture Strep A Culture, Throat Routine Sore throat Ordered: 12/27/2017 [facility] Immunizations Immunization Date Immunization Notes Care Provider Mateo francisco 05-08-2016 influenza, seasonal, injectable Henri Pulliam [facility] Work Phone: 05-08-2016 influenza virus vaccine, unspecified formulation Jeri GARRETT Work Phone: [facility] Payers Date Payer Category Payer Unknown [id number] 2017 Unknown [id number] 2016 Unknown Social History Date Type Detail Facility Start: 12-27-2017 Tobacco smoking stat [facility] Current every day smoker [facility] History of tobacco use Cigarette Smoker [facility] Work Phone: Start: 12-27-2017 Cigarettes smoked current (pack per day) - Reported [facility] Sex Assigned At Not on file [facility] Work Phone: Start: 05-07-2017 End: 05-08-2017 Tobacco smoking status IAIS Former smoker [facility] Work Phone: Tobacco smoking stat [facility] Tobacco smoking consumption unknown [facility] Start: 02-17-2023 [facility] Start: 1995 Sex Assigned At Female [facility] Start: 04-02-2023 Gender identity Identifies as female gender (finding) [facility] Start: 04-02-2023 Sexual orientation Bisexual (finding ) [facility] Instructions * Patient Instructions [...] 1 cup of warm water. Take an ftcd-mxs-rstnvxa pain medicine, such as acetaminophen (Tylenol), ibuprofen (Advil, Motrin),or naproxen (Aleve). Read and follow all instructions on the label. Be careful when taking msvd-brw-exhyqfa cold or flu medicines and Tylenol at [...] soup, may help decrease throat pain. Use lrpc-gdq-hxinstq throat lozenges to soothe pain. Regular cough [...] Log into your personal health record on [email or web address] and enter U420 in the Education box to learn more about Sore Throat: Care Instructions. Current as of: November 28, 2016 Content Version: 11.6 7565-0662 Reveal. Care instructions adapted under license by your healthcare professional. If you have questions about a medical condition or this instruction, always ask your healthcare professional. [employer] disclaims any warranty or liability for your [...] rest if you feel tired. Take an vsfa-sqm-kgombmr pain medicine if needed, such as acetaminophen (Tylenol), ibuprofen (Advil, Motrin), or naproxen (Aleve). Read and follow all instructions on the label. Be careful when taking wghh-hca-qyxoxrv cold or flu medicines and Tylenol at [...] Log into your personal health record on [email or web address] and enter L906 in the Education box to learn more about Viral Infections: Care Instructions. Current as of: June 06, 2017 Content Version: 05.25-2018 Reveal. Care instructions adapted under license by your healthcare professional. If you have questions about a medical condition or this instruction, always ask your healthcare professional. [employer] disclaims any warranty or liability for your [...] your doctor if you can take an dbav-dtv-gthfgov medicine. Be careful not to take pain [...] Log into your personal health record on [email or web address] and enter M271 in the Education box to learn more about Headache: Care Instructions. Current as of: May 02, 2016 Content Version: 11.2 6288-9303 Reveal. Care instructions adapted under license by your healthcare professional. If you have questions about a medical condition or this instruction, always ask your healthcare professional. [employer] disclaims any warranty or liability for your use of this information. in this encounter Additional Source Comments INFORMATION SOURCE (unrecogn ized section and content) DATE CREATED AUTHOR 01/05/2018 [facility] Care DATE CREATED AUTHOR AUTHOR'S ORGANIZ ATION 01/12/2018 [facility] DATE CREATED AUTHOR AUTHOR'S ORGANIZ ATION 02/02/2018 [facility] DATE CREATED AUTHOR AUTHOR'S ORGANIZ ATION 07/12/2021 [facility] Reason for Visit (unrecogniz ed section and [...] the patient. I discussed the patient with OPTOMETRY DOCTOR/PA. I agree with the OPTOMETRY DOCTOR/PA treatment plan. I agree with the OPTOMETRY DOCTOR/PA plan of care. I agree with the OPTOMETRY DOCTOR/PA dispo as documented. The patient has been [...] Procedure Abnormality Status --------- ------ CBC Auto Differential[[id number]] Abnormal Final result Please view results for these tests on the individual orders. RAINBOW DRAW Narrative: The following orders were created for panel order [place] [facility]. Procedure Abnormality Status --------- ------ Gold Top[[id number]] In process Light Blue Top[[id number]] In process Wright Top[[id number]] In process Olean Top[[id number]] In process Please view results for these [...] note may be different from the original. [facility] ED Resident Note: NAME: Jodi Boston 22 y.o. CSN: [id number] PCP: Roxane Beasley DO History: Chief Complaint: [...] PMSx: Past Surgical History: Procedure Laterality Date Inside Technical Sales Representative WISDOM TOOTH EXTRACTION FAM. 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 RAINBOW DRAW Narrative: The following orders were created for panel order [place] Draw. Procedure Abnormality Status --------- ------ Gold Top[[id number]] In process Light Blue Top[[id number]] In process Wright Top[[id number]] In process Olean Top[[id number]] In process Please view results for these [...] Given 05/07/171728) This note was generated by Glimpse voice recognition software and as a result grammatical or spelling errors may occur using this program. Clinical Impression: SNOMED CT(R) 1. Nonintractable headache, unspecified chronicity pattern, unspecified headache type HEADACHE Disposition: Patient is being discharged to home New Prescriptions No medications on file Alyssa Tellez DO ED Resident Physician [facility] Emergency Department (Please note that portions of this note have been completed with a voice recognition software. Efforts were made to correct any errors, but occasionally words are mis-transcribed.) Alyssa Tellez DO Resident 05/07/17 5874 SECONDARY ASSESSMENT - Breathing regular and unlabored, [...] wall movement. Circulation: Skin warm and dry, STRATEGIC ACCOUNT DIRECTOR < 3 seconds, 2+ Bilateral radial pulses. [...] to the room to provide pt with DC/legal administrative assistant/care instructions. 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 All imaging has been read by a Radiologist. Eleno Thao PA-C 05/08/17 1315 Pt presents to the ED c/o of severe neck pain. Pt was tx at [facility] yesterday for migraine at which time her [...] night, pt was seen in ED at [facility] yesterday treated for migraine headache, denies headache [...] BE BASED ON THE PRIMARY CLINICAL RECORDS. [employer] [facility]. provides no warranty or guarantee of the accuracy or completeness of information in this document.
[2023-11-03 05:30] LABS: Hematocrit 38.6 % (36.0-48.0); Hemoglobin 12.4 g/dL (12.0-16.0); Mean Corpuscular HGB Conc 32.1 g/dL (29.9-35.2); Mean Corpuscular Hemoglobin 27.8 pg (26.7-34.0); Mean Corpuscular Volume 86.5 fL (81.0-99.0); Mean Platelet Volume 11.3 fL (9.5-13.5); Platelet Count 135 10^3/uL (150-450); Red Blood Count 4.46 10^6/uL (4.20-5.40); Red Cell Distribution Width 20.8 % (11.0-15.0); White Blood Count 8.2 10^3/uL (4.0-11.0)
[2023-11-03 05:41] LABS: Amphetamine Screen Urine NEGATIVE (NEGATIVE); Barbiturates Screen Urine NEGATIVE (NEGATIVE); Benzodiazepines Screen Urine NEGATIVE (NEGATIVE); Buprenorphine Screen Urine NEGATIVE (NEGATIVE); Cannabinoid Screen Urine NEGATIVE (NEGATIVE); Cocaine Screen Urine NEGATIVE (NEGATIVE); Methadone Screen Urine NEGATIVE (NEGATIVE); Methamphetamines Screen Urine NEGATIVE (NEGATIVE); Opiate Screen Urine NEGATIVE (NEGATIVE); Oxycodone Screen Urine NEGATIVE (NEGATIVE); Phencyclidine Screen Urine NEGATIVE (NEGATIVE); Tricyclic Antidepressant Urine NEGATIVE (NEGATIVE)
[2023-11-03] MEDS: 0.9 % SODIUM CHLORIDE 1,000 ML 125 ML IV ×2 (05:54→13:23)
[2023-11-03] MEDS: OXYTOCIN/0.9 % SODIUM CHLORIDE 10 UNITS/500 ML PLAST..BAG 6 UNIT IV (06:03)
--- NOTE | 2023-11-03 07:32 | W.PC.ACHO ---
Registration Status: ADM IN Primary Language: Citizen [place] Preferred Language: [place] Report given to Dawit MOELLER at 0700. Active Medications Generic Name Dose Route Start Last Admin Trade Name Gioq PRN Reason Stop Dose Admin Carboprost Tromethamine 250 mcg 11/03/23 05:03 Carboprost Tromethamine 250 Mcg/Ml 1 Ml Vial IM 11/05/23 05:03 Q15M PRN Bleeding Sodium Chloride 1,000 mls @ 125 mls/hr 11/03/23 05:30 11/03/23 05:54 Sodium Chloride 0.9% 1,000 Ml IV 125 mls/hr .Q8H LUSIA Administration Oxytocin/Sodium Chloride 10 units in 500 mls @ 6 mls/hr 11/03/23 05:15 11/03/23 06:03 Pitocin 10 Unit/500 Ml-Ns IV 2 milliunit/min TITR LUISA 6 mls/hr Administration Protocol 2 MILLIUNIT/MIN Oxytocin/Sodium Chloride 20 units in 1,000 mls @ 125 mls/hr 11/03/23 05:03 Pitocin 20 Unit/1,000 Ml-Ns IV Q8H PRN POST DELIVERY Lidocaine 5 ml 11/03/23 05:03 Lidocaine Viscous 2% 15 Ml Solution TOPICAL ONCE PRN Pain Lidocaine 1 ml 11/03/23 05:03 Lidocaine Hcl 1% 200 Mg/20 Ml Mdv INJ ONCE PRN Pain Methylergonovine Maleate 0.2 mg 11/03/23 05:03 Methylergonovine Maleate 0.2 Mg/Ml Ampule IM 11/05/23 05:03 ONCE PRN Uterine Contractility/Contract Methylergonovine Maleate 0.2 mg 11/03/23 05:03 Methylergonovine Maleate 0.2 Mg Tablet PO 11/05/23 05:03 Q4H PRN Uterine Contractility/Contract Misoprostol 600 mcg 11/03/23 05:03 Misoprostol 100 Mcg Tablet PO 11/05/23 05:03 ONCE PRN Uterine Bleeding Misoprostol 800 mcg 11/03/23 05:03 Misoprostol 100 Mcg Tablet SL 11/05/23 05:03 ONCE PRN Uterine Bleeding Misoprostol 1,000 mcg 11/03/23 05:03 Misoprostol 100 Mcg Tablet DC 11/05/23 05:03 ONCE PRN Uterine Bleeding Ondansetron HCl 4 mg 11/03/23 05:03 Ondansetron Pf 4 Mg/2 Ml Vial IV Q6H PRN Nausea And Vomiting Ondansetron HCl 4 mg 11/03/23 05:03 Ondansetron 4 Mg Rapdis Tablet SL Q6H PRN Nausea And Vomiting Oxytocin 10 unit 11/03/23 05:03 Oxytocin 10 Unit/Ml Vial IM 11/05/23 05:03 ONCE PRN Bleeding Consults Category Date Time Status Consult to Anesthesiology Routine Cons 11/03/23 Ordered IV Insertion/Site Date of IV Line Insertion [ 11/03/23 Short PIV (<1.75 in) 20g left Hand] IV Insertion Time [Short PIV ( 05:19 <1.75 in) 20g left Hand] Neurology Patient orientation (short person,place,time,situation list)
--- NOTE | 2023-11-03 14:56 | PM.OBPRCVD ---
Procedure Intrapartal events: None Induction method: per pitocin protocol Delivery augmentation: rupture of membranes and pitocin Delivery monitor: external FHT and external uterine Route of delivery: Episiotomy Description: none L&D Laceration Description: none Anesthesia type: Epidural Disposition: floor Delivery date: 11/03/23 Gender: male presentation: vertex Placental delivery description: Spontaneous cord description: 3 Vessels
[2023-11-03] MEDS: BENZOCAINE/MENTHOL 85 GRAM SPRAY BOTTLE 1 APPLIC TOPICAL (15:29)
[2023-11-03] MEDS: OXYTOCIN/0.9 % SODIUM CHLORIDE 20 UNITS/1,000 ML PLAST..BAG 125 UNIT IV (15:30)
[2023-11-03] MEDS: IBUPROFEN 600 MG TABLET PO ×2 (15:30→23:21)
[2023-11-04 01:59] VITALS: BP 87/52; PULSE 78
[2023-11-04 02:00] VITALS: TEMP 36.9
[2023-11-04 02:01] VITALS: BP 83/49; PULSE 75
[2023-11-04 06:09] LABS: Basophils Percent Auto 0.2 % (0.2-2.0); Eosinophils Absolute Auto 0.1 10^3/uL (0.0-0.7); Eosinophils Percent Auto 0.4 % (0.9-7.0); Hematocrit 37.9 % (36.0-48.0); Hemoglobin 12.2 g/dL (12.0-16.0); Immature Granulocytes Abs Auto 0.06 10^3/uL (0.00-0.03); Immature Granulocytes Pct Auto 0.5 % (0.0-0.5); Lymphocytes Absolute Auto 2.1 10^3/uL (1.2-3.8); Lymphocytes Percent Auto 16.9 % (20.5-60.0); Mean Corpuscular HGB Conc 32.2 g/dL (29.9-35.2); Mean Corpuscular Volume 87.1 fL (81.0-99.0); Mean Platelet Volume 10.9 fL (9.5-13.5); Monocytes Absolute Auto 0.8 10^3/uL (0.3-0.8); Monocytes Percent Auto 6.2 % (1.7-12.0); Neutrophils Absolute Auto 9.5 10^3/uL (1.4-6.5); Neutrophils Percent Auto 75.8 % (43.0-75.0); Platelet Count 126 10^3/uL (150-450); Red Blood Count 4.35 10^6/uL (4.20-5.40); Red Cell Distribution Width 20.8 % (11.0-15.0); White Blood Count 12.5 10^3/uL (4.0-11.0)
--- NOTE | 2023-11-04 07:40 | P.OBPN_ITS ---
OB - PN: Subj Subjective Patient comments: no complaints and pain well controlled [place] status: doing well Exam Constitutional Vital Signs, click to edit/add: Last Vital Signs Temp 98.4 F 11/04/23 02:00 Pulse 75 11/04/23 02:01 Resp 16 11/04/23 02:00 BP 83/49 L 11/04/23 02:01 O2 Del Method Room Air 11/04/23 02:00 Documenting provider has reviewed patient's vital signs: yes Common normals: no apparent distress Respiratory Common normals: clear to auscultation bilaterally Cardio Common normals: regular rate and regular rhythm GI Common normals: Normal to inspection, nondistended, normoactive bowel sounds present Extremity Common normals: no clubbing, cyanosis or edema and no calf tenderness Results Labs Labs: Short CBC 11/04/23 Range/Units 05:55 WBC 12.5 H (4.0-11.0) 10^3/uL Hgb 12.2 (12.0-16.0) g/dL Hct 37.9 (36.0-48.0) % Plt Count 126 L (150-450) 10^3/uL OB - PN: A/P Plan - Vaginal Delivery day: 1 Plan: routine care Time Spent with Patient Time: Total time spent is greater than 50% in coordination of care (as documented) at patient's floor/unit and/or counseling patient: Total time spent with greater than 50% in coordination of care (as documented) at patient's floor/unit and/or counseling patient: less than 15 minutes
[2023-11-04 08:15] VITALS: BP 105/61; PULSE 93
[2023-11-04] MEDS: IBUPROFEN 600 MG TABLET PO (08:17)
[2023-11-04 09:17] VITALS: TEMP 36.6
== END 2023-11-04 19:00 | disposition home or self-care (01) | DRG 807 ==
PROVIDERS: Admitting Provider Obstetrics & Gynecology; Visit Provider Obstetrics & Gynecology
DX: O80 Encounter for full-term uncomplicated delivery (principal); Z37.0 Single live birth; Z3A.39 39 weeks gestation of pregnancy
CPT/HCPCS: 36415; 59050; 59410; 80307; 85025; 85027; 86850; 86900; 86901; 96365; 96366; 96376

== ENCOUNTER 2023-12-16 08:05 | Outpatient (OUT) | payer OTHER, SELFPAY ==
--- OUTSIDE RECORDS SUMMARY | 2023-12-16 08:30 | XMS_ITS | CCD ---
Author Organization [facility] Care Team Providers Care Boiler Or Engine Operator Name Role Phone Ramos Roxane Sims Unavailable BEASLEY ROXANE DWYERECCA Unavailable Unavail able MARI HAM Unavailable Unavailable HENRI PULLIAM Unavailable Unavailabl e RAMOS, ROXANE MCCAINCA Unavailable Unavail able HENRI PULLIAM Unavailable Unavailabl [...] Propensity to adverse reactions 08-26-19 19 Rash [facility] Work Phone: (1 source) Prochlorperazine Drug Allergy 05-07-20 18 [facility] Medications Current Medications Medication Drug Class(es) [...] for constipation 30 capsule 5 08/05/2023 Active [id number] 0.3 ml EPINEPHrine 1 mg/ml auto-injector (4 [...] parts viscous lidocaine 2%, diphenhydramine 12.5mg/5mL, maalox 405kg-630zg-27no/5mL (1 source) Start: 018 End: 018 magic mouthwash susp equal parts viscous lidocaine 2%, diphenhydramine 12.5mg/5mL, maalox 544so-845gs-93it/5mL Swish and spit 5 mL every 6 [...] morning. 360 capsule 0 08/05/2023 08/04/2024 Active Mpbcdb-HbJjw-LpWff-FA-C A-[place] (Complete DHA) 29-1-200 & 200 MG misc (1 source) Start: 023 Nsmemn-CiEnp-ZdZit-FA- [place] (Complete Annette DHA) 29-1-200 & 200 MG [...] WITH AUTO DIFFon BASOPHILS ABSOLUTE AUTO 0.0 [facility] Basophils/100 WBC (Bld) 0.1 % Low 0.2 - 2.0 % [facility] Eosinophils/100 WBC (Bld) 0.4 % Low 0.9 - 7.0 % [facility] Erythrocyte distribution width (RBC) [Ratio] 13.4 % 11.0 - 15.0 % [facility] Hematocrit (Bld) [Volume fraction] 29.5 % Low 36.0 - 48.0 % [facility] Hemoglobin (Bld) [Mass/Vol] 9.2 g/dL Low 12.0 - 16.0 g/dL [facility] IMMATURE GRANULOCYTES ABS AUTO 0.08 High [facility] Immature granulocytes/100 WBC (Bld) 0.8 % High 0.0 - 0.5 % [facility] Interpretation and review of laboratory results Abnormal [facility] LYMPHOCYTES ABSOLUTE AUTO 1.8 [facility] Lymphocytes/100 WBC (Bld) 19.1 % Low 20.5 - 60.0 % [facility] MCH (RBC) [Entitic mass] 26.5 pg Low 26.7 - 34.0 pg [facility] MCHC (RBC) [Mass/Vol] 31.2 g/dL 29.9 - 35.2 g/dL [facility] MCV (RBC) [Entitic vol] 85.0 fL 81.0 - 99.0 fL [facility] MONOCYTES ABSOLUTE AUTO 0.8 [facility] Monocytes/100 WBC (Bld) 8.0 % 1.7 - 12.0 % [facility] NEUTROPHILS ABSOLUTE AUTO 6.9 High [facility] Neutrophils/100 WBC (Bld) 71.6 % 43.0 - 75.0 % [facility] Platelet mean volume (Bld) [Entitic vol] 10.5 fL 9.5 - 13.5 fL [facility] EO # 0.0 [facility] TB PLT 192 [facility] RBC 3.47 Low [facility] WBC 9.6 [facility] XR CHEST (2 VW)on 07-09-2021 [...] Hamzah Kaba MD 07/09/21 Final result Normal [facility] POC Rapid Strep Aon 12-28-19 Interpretation and review of laboratory results Normal Invalid Interpretation Code [facility] Streptococcus pyogenes antigen presence Negative Invalid Interpretation Code Negative [facility] Basic Metabolic Panelon 05-0 Anion gap 8.0 mmol/L Normal 6.0-18.0 [facility] Comment on above: Result Comment: PLEA SE NOTE:The calculated Anion Gap(AGAP) does not include Potassium. Performed By: #### 6 9405-9, 55349-8l2, 3040-3, 71682-5, 90971-3 ####[facility], [address], [place]. Calcium 9.3 mg/dL Normal 8.9-10.3 [facility] Comment on above: Performed By: #### 6 9405-9, 22471-6b4, 3040-3, 91113-0, 19913- 3 ####[facility], [address] [facility] Chloride 106 mmol/L Normal 98-107 [facility] Comment on above: Performed By: #### 6 9405-9, 07336-4f8, 3040-3, 61694-6, 83322- 3 ####[facility], [address] [place], [place] CO2 25 mmol/L Normal 22-32 [facility] Comment on above: Performed By: #### 6 9405-9, 60622-0h6, 3040-3, 93897-1, 24718- 3 ####[facility], [address] [place]. Creatinine 0.65 mg/dL Low 0.66-1.30 [facility] Comment on above: Performed By: #### 6 9405-9, 71494-9x7, 3040-3, 55715-3, 24827- 3 ####[facility], [address] [place], [place]. Glucose mass conc 88 mg/dL Normal 70-110 [facility] Comment on above: Performed By: #### 6 9405-9, 09575-8u4, 3040-3, 45102-5, 65205- 3 ####[facility], [address] [place]. Potassium molar conc 3.5 mmol/L Low 3.6-5.1 [facility] Comment on above: Performed By: #### 6 9405-9, 10451-5y9, 3040-3, 69110-2, 29980- 3 ####[facility], [address], [place]. Sodium 139 mmol/L Normal 136-145 [facility] Comment on above: Performed By: #### 6 9405-9, 50923-0b3, 3040-3, 15530-2, 45824- 3 ####[facility], [address] Urea nitrogen mass conc (BldV) 10 mg/dL Normal 8-20 [facility] Comment on above: Performed By: #### 6 9405-9, 48406-4w5, 3040-3, 28534-0, 63110- 3 ####[facility], [address] [facility] CBCon 11-21-2017 Erythrocyte distribution width Entitic volume (RBC) 20.1 % High 11.0-14.8 [facility] Comment on above: Performed By: #### 2 7-0 ####[facility], [address] [place], [place] [address], [place]. Erythrocytes (RBC) 4.57 million/mcL Normal 3.80-5.10 [facility] Comment on above: Performed By: #### 2 7-0 ####[facility], [address] [place] [address]. Hematocrit (HCT) 34.8 % Low 35.0-45.0 [facility] Comment on above: Performed By: #### 2 7-0 ####[facility], [facility] [place] [facility] [facility]. Hemoglobin mass conc (Bld) 11.3 g/dL Low 12.0-16.0 [facility] Comment on above: Performed By: #### 2 7-0 ####[facility], [address] [facility] MCH 24.8 Picograms Low 27.0-34.0 [facility] Comment on above: Performed By: #### 2 4317-0 ####[facility], [address], [place]. MCHC mass conc (RBC) 32.6 g/dL Normal 32.0-36.0 [facility] Comment on above: Performed By: #### 2 7-0 ####[facility], [address] [place], [place]. MCV 76.1 fL Low 80.0-97.0 [facility] Comment on above: Performed By: #### 2 4317-0 ####[facility], [address], [place]. Platelet mean volume Entitic volume (Bld) 8.9 FL Normal 6.2-12.1 [facility] Comment on above: Performed By: #### 2 4317-0 ####[facility], [address] [place], [place]. Platelets 251 thou/mcL Normal 142-424 [facility] Comment on above: Performed By: #### 2 4317-0 ####[facility], [address], [place]. WBC (Leukocytes) 6.4 thou/mcL Normal 4.6-10.2 [facility] Comment on above: Performed By: #### 2 4317-0 ####[facility], [address] [facility] CT Abd and Pelvis w Contrast [...] emergency department following dictation on 11/21/2017 3:41 AM.[place] thanks you for the opportunity to care for your patient. Workstation ID: [id number] FINAL REPORT Dictated By: Pérez Queen MD 11/21/2017 03:38Assigned Physician: Pérez Queen MDReviewed and Electronically Signed By: Pérez Queen MD 11/21/2017 03:42Transcribed by: HELEN 11/21/2017 03:38Technologist: [facility] Normal [facility] Culture Urine + Susceptibili tyon 11-21-2017 Urine culture, bacteria [facility] MicrobiologyPROCEDURE: Culture Urine + SusceptibilitySOURCE: Urine BODY SITE:COLLECTED DATE/TIME: 11/21/2017 01:41 EDT RECEIVED DATE/TIME: 11/21/2017 01:41 EDTSTART DATE/TIME: 11/21/2017 01:41 EDT FREE TEXT SOURCE: URINEINTERFACED REPORTSFinal Report []Verified Date/Time/Personnel: 11/22/2017 12:17 EDT CONTRIBUTOR_SYSTEM, CO_PNORGANISMS USUALLY ASSOCIATED WITH VAGINAL,URETHRAL,AND/OR SKIN CONTAMINATION PRESENT. [facility] Comment on above: Performed By: #### 5 8077-9, 25838-5 ####[facility], [address], [place].#### 630-4 ####[facility] [address], [place] Depart Summaryon 11-21-2017 Depart Summary EMERGENCY DEPARTMENT DISCHARGE SUMMARYPATIENT NAME:JODI BOSTON MRN: ([id number]: 22 Years SEX: Female PHONE:[phone]: 11/20/2017 10:57 PM : 1995 ATTENDING PHYSICIAN:Ernestine Mckeon MD PCP: Physician, No PCP CHIEF COMPLAINT: abdominal pain Allergies Compazine (Anger)Problems Active No Chronic Problems DISCHARGE DIAGNOSIS: DISCHARGE INSTRUCTIONS: Work Release (CO-S) (CUSTOM); Abdominal Pain, Adult ED PHYSICIAN DOCUMENTATION: History of Present Yrjnhct38-xbwq-wjp female with no significant medical history presents [...] .3 ?(11/20 22:59)?Pulse:??71 ?(11/21 01:34)?Respiration:??18 ?(11/21 01:34)?BP:??108/70 ?(11/21 00:34)?Pulse Ox:??99 ?(11/21 00:34)?Oxygen Delivery:??Room air ?(11/21 00:34)?Pain Score:??4 ?(11/20 22:59)???PULSE OX INTERPRETATION: The Pulse [...] PLAN:Condition: [Stable].Disposition: [Medically cleared], Discharged Date/Time: [ 0440] to HomePrescriptions: famotidine?20 mg, By Mouth Twice [...] Result(s): Date Order Results 11/20/2017 23:06 Specific [place] Urine POCT N 1.030 11/20/2017 23:06 pH Urine POCT N 5 11/20/2017 23:06 Urobilinogen Urine POCT N 0 mg/dL 11/21/2017 01:41 Appearance Urine A TURBID 11/21/2017 01:41 Specific [place] Urine H 1.032 11/21/2017 01:41 Blood Urine [...] emergency department following dictation on 11/21/2017 3:41 AM.[place] thanks you for the opportunity to care [...] any generalized worsening of your condition. Normal [facility] ED Beth Jacome 11-21-2017 [address], [place] [address] [facility] Discharge Instructions JODI BOSTON , Please [...] [employer] Name JODI BOSTON MRN (COL)-[id number] PLEASE READ THE FOLLOWING REGARDING YOUR MEDICATIONS [...] doses are changed, or new medications (including qfpu-lol-uiuoriz products) are added. If you have any [...] TAKE UNTIL YOU TALK TO YOUR DOCTORNone [place] [address] [address] Emergency Department Discharge Instructions Name: JODI BOSTON Current Date: 11/21/2017 03:50:01 : 1995 12:00 PM Primary Physician: Physician, No PCP We would like to thank you for choosing [facility] for your emergency medical needs. We examined [...] health of those around you. Call the [place] [employer] at 7-918-CFPZ-[facility] or the [place] [employer] at 6-268-VUU-9599 for more information.High blood pressure: Your screening blood pressure today was 108 mm Hg / . Hypertension (high blood pressure) is blood pressure over 120/80. People with hypertension should contact their primary care provider within 30 days to follow up. Check your patient portal for additional blood pressure information.Immunizations:I mmunization is a way to protect against deadly infections. Discuss this with your child's central supply clerk, or Public Health Department. Your family practice doctor can determine if you need pneumonia or flu vaccine. The [facility] can be reached at .Domestic Violence:If you [...] suicide hotline, anytime day or night, at 4-473-740-VSIZ. Pharmacy Information:Below is a list of 24 hour pharmacies that we are aware of. We suggest that you call the specific pharmacy for their hours before traveling to a location. Hours may vary on holidays. [facility] [address] [place] [address] [phone] [address] [phone] [place] [address] [phone] [place] [address] [phone] [address] [phone] [place] [address] [phone] [place] [address] [phone] Take all medications as directed. If you need prescription assistance, contact the following agencies:?? Partnership for Prescription Assistance at or www.One[employer] Labsx.org?? [facility] at or www.Holisol logisticsrx.official.fm?? [employer] is a site with many valuable coupons [...] alleviate any discomfort you are experiencing:???Only take kizg-eoq-vihveml or prescription medicines as directed by your [...] Document Reviewed: 03/15/2014[employer] Patient Education ?2016 [employer]><><><><><><><><><><>< ><><><><><><><><><><><>< ><> Patient Visit Summary Signature JODI BOSTON has been given the following list of patient education materials, prescriptions and follow-up instructions: TEJ Whitten MORGAN A, have received the above patient education materials/instructions and have verbalized understanding: Date Time Patient Signature Date Time Provider Signature Normal [facility] ED Physician Noteson 018 ED Physician [...] chronic problems Historical No qualifying dataProcedure/Surgical History Gypsum tooth.Medications Home No active home medications ED [...] department following dictation on 11/21/2017 3:41 AM. [place] thanks you for the opportunity to care [...] MD November 21, 2017 00:59 Completed Normal [facility] ED Physician Notes PDF Normal [facility] GFRaaon 11-21-2017 eGFR (black) mL/min/{1.73_m2} Normal [facility] Comment on above: Result Comment: The MDRD equation has not been validated for those over 70 years, women, patients with serious co-morbid conditions, or with extremes of bodysize, muscle mass of nutritional status. Performed By: #### 6 9405-9, 77137-9q2, 3040-3, 74535-3, 23781-0 ####[facility], [address] [place] [address]. GFRbbon 11-21-2017 eGFR (non-black) mL/min/{1.73_m2} Normal [facility] Comment on above: Performed By: #### 6 9405-9, 13857-2m3, 3040-3, 91437-9, 25986- 3 ####[facility], [address] [facility]. Hepatic Function Panelon Alanine aminotransferase (ALT) 15 Units/L Normal 14-63 [facility] Comment on above: Performed By: #### 6 9405-9, 24259-9t8, 3040-3, 82870-5, 89279- 3 ####[facility], [address] [facility] [place]. Albumin 4.2 g/dL Normal 3.5-4.8 [facility] Comment on above: Performed By: #### 6 9405-9, 59488-9t8, 3040-3, 61659-8, 95413- 3 ####[facility], [address] [facility], [place]. Alkaline phosphatase (ALP) 36 Units/L Normal 32-91 [facility] Comment on above: Performed By: #### 6 9405-9, 22902-1s8, 3040-3, 91613-2, 68332- 3 ####[facility], [address] [facility] [place]. Aspartate aminotransferase (AST) 19 Units/L Normal 15-41 [facility] Comment on above: Performed By: #### 6 9405-9, 05476-5k9, 3040-3, 15327-4, 60864- 3 ####[facility], [address] [place], [place]. Bilirubin (direct) 0.1 mg/dL Normal 0.1-0.5 [facility] Comment on above: Performed By: #### 6 9405-9, 20345-5x4, 3040-3, 18931-1, 65716- 3 ####[facility], [address] [place], [place]. Bilirubin (total) 0.6 mg/dL Normal 0.3-1.2 [facility] Comment on above: Performed By: #### 6 9405-9, 94996-3l8, 3040-3, 05696-0, 45047- 3 ####[facility], [address], [place]. Bilirubin.indirect mass conc 0.5 mg/dL Normal 0.0-1.0 [facility] Comment on above: Performed By: #### 6 9405-9, 83379-6q6, 3040-3, 31813-2, 77007- 3 ####[facility], [address] [facility]. Protein 6.9 g/dL Normal 6.1-7.9 [facility] Comment on above: Performed By: #### 6 9405-9, 55874-4h0, 3040-3, 03365-5, 13765- 3 ####[facility], [address] [place]. Lipaseon 11-21-2017 Lipase 21 Units/L Low 22-51 [facility] Comment on above: Performed By: #### 6 9405-9, 82609-8j0, 3040-3, 81588-3, 24383- 3 ####[facility], [address] [facility] Urinalysis Microscopicon Urine, amorphous crystals presence in sediment FEW Abnormal NONE/HPF [facility] Comment on above: Performed By: #### 5 8077-9, 13522-2 ####[facility], [address] [facility], [place].#### 630-4 ####[facility] [address], [place] Urine, bacteria in sediment FEW Abnormal NONE/HPF [facility] Comment on above: Performed By: #### 5 8077-9, 36741-2 ####[facility], [address], [place].#### 630-4 ####[facility] [address], [place] Urine, erythrocytes in sediment by area 6 /[HPF] High 0-5 [facility] Comment on above: Performed By: #### 5 8077-9, 38110-1 ####[facility], [address] [place] [address].#### 630-4 ####[place] [address] [place], [place] Urine, mucus presence in sediment MANY Abnormal NONE/LPF [facility] Comment on above: Performed By: #### 5 8077-9, 20431-3 ####[facility], [address] [place] [address].#### 630-4 ####[address] Urine, squamous cells in sediment MANY Abnormal FEW/LPF [facility] Comment on above: Performed By: #### 5 8077-9, 79491-3 ####[facility], [address] [place] [address].#### 630-4 ####[address] WBC Urine 6 /hpf High 0-5 [facility] Comment on above: Performed By: #### 5 8077-9, 23766-1 ####[facility], [address] [place] [address].#### 630-4 ####[place] [address] [place], [place] Urinalysis with Microscopic Automatic with Reflexon 11-21-2017 Bilirubin Test strip mass conc (U) Negative Normal NEGATIVE [facility] Comment on above: Performed By: #### 5 8077-9, 32803-5 ####[facility], [address] [place] [address].#### 630-4 ####[place] [address] [place], [place] Glucose Test strip mass conc (U) NORMAL Normal NORMAL [facility] Comment on above: Performed By: #### 5 8077-9, 52259-2 ####[facility], [address], [place].#### 630-4 ####[place] [address] [place], [place] Ketones Test strip mass conc (U) 80MG/DL Abnormal NEGATIVE [facility] Comment on above: Performed By: #### 5 8077-9, 59432-6 ####[facility], [address] [facility], [place].#### 630-4 ####[address] Nitrite Test strip mass conc (U) Negative Normal NEGATIVE [facility] Comment on above: Performed By: #### 5 8077-9, 35420-3 ####[facility], [facility] [address], [place].#### 630-4 ####[place] [address] [place], [place] Urine, appearance TURBID Abnormal CLEAR [facility] Comment on above: Performed By: #### 5 8077-9, 92448-7 ####[facility], [address], [place].#### 630-4 ####[place] [address] [place], [place] Urine, color TELLO Normal YELLOW [facility] Comment on above: Performed By: #### 5 8077-9, 20519-5 ####[facility], [address], [place].#### 630-4 ####[place] [address] [place], [place] Urine, hemoglobin presence 10/UL Abnormal NEGATIVE [facility] Comment on above: Performed By: #### 5 8077-9, 56045-6 ####[facility], [address] [facility], [place].#### 630-4 ####[place] [address] [place], [place] Urine, leukocyte esterase presence 25/UL Abnormal NEGATIVE [facility] Comment on above: Performed By: #### 5 8077-9, 07838-8 ####[facility], [address], [place].#### 630-4 ####[place] [address] [place], [place] Urine, pH 5.0 [pH] Normal 4.5-8.0 [facility] Comment on above: Performed By: #### 5 8077-, 69202-6 ####[facility], [address] [facility] [place]#### 630-[address] ####[address] Urine, protein 100 mg/dL Abnormal NEGATIVE [facility] Comment on above: Performed By: #### 5 8077-9, 09510-5 ####[facility], [facility] [facility] [address].#### 630-4 ####[address] Urine, specific gravity 1.032 High 1.002-1.030 [facility] Comment on above: Performed By: #### 5 8077-9, 10042-5 ####[facility], [address] [facility], [place].#### 630-4 ####[address] Urobilinogen Test strip mass conc (U) NORMAL Normal NORMAL [facility] Comment on above: Performed By: #### 5 8077-9, 72762-2 ####[facility], [address] [facility], [place].#### 630-4 ####[place] [address] [place], [place] Depart Summaryon 10-10-2017 Depart Summary EMERGENCY DEPARTMENT DISCHARGE SUMMARYPATIENT NAME:JODI BOSTON : 22 Years SEX: Female PHONE:[phone]: 10/10/2017 1:18 PM : 1995 ATTENDING PHYSICIAN:Yaneth Radford MD PCP: Physician, No PCP CHIEF COMPLAINT: Fever, Cough/ST, Congestion Allergies Compazine (Anger)Problems Active No Chronic Problems DISCHARGE DIAGNOSIS: DISCHARGE INSTRUCTIONS: [employer] work release. ([id number]); Upper Respiratory Infection, Adult; Acute Bronchitis; Pharyngitis; Strep Throat; Sinusitis, Adult ED PHYSICIAN DOCUMENTATION: History of Present Illness I have introduced myself as the PA and informed the patient of the supervising/ collaborating physician who is available upon request. I have discussed the case with the ED physician who participated in the decisions regarding any therapeutic interventions. Physician: Dr. RadfordNczmlw19-bhey-lmr white female with history of heart murmur [...] congestion and mild cough. She used numerous wvnl-eks-tyiyamf medications and thought that she was getting [...] FOLLOW UP:FOLLOW-UP APPOINTMENTS: Provider: Specialty: Address: Date: [facility] [address] [facility] [address] (4) Follow-up as needed Comment: This is [...] be significantly worsening instead of improving. Normal [facility] ED Pat Eduon 10-10-2017 ED Pat Edu [place] [address] [facility] Discharge Instructions JODI BOSTON , Please provide this information to your Primary Care/Specialist Name : JODI BOSTON Current Date : 10/10/2017 14:43:31DOB : 1995 12:00 PM Primary Care Physician: Physician, [place] PCP Diagnosis : Follow-Up Instructions:JODI BOSTON has been given these follow-up instructions: FOLLOW-UP APPOINTMENTS: Provider: Specialty: Address: Date: [facility] ([facility]) [address] [facility] [facility] [address] (6) Follow-up as needed Comment: This is [...] and Patient Education(s) : Keiry's work release. ([id number]); Upper Respiratory Infection, Adult; Acute Bronchitis; Pharyngitis; Strep Throat; Sinusitis, Adult EMERGENCY SERVICES MEDICATION LISTLista de Medicaciones de los Servicios de Emergencia Name JODI BOSTON MRN ([facility])-[id number] PLEASE READ THE FOLLOWING REGARDING YOUR MEDICATIONS [...] doses are changed, or new medications (including mjhl-iyb-bjdvpiz products) are added. If you have any [...] TAKE UNTIL YOU TALK TO YOUR DOCTORNone [place] [address] [facility] Department Discharge Instructions Name: TEJ JODI Smith Current Date: 10/10/2017 14:43:31 : 1995 12:00 PM Primary Physician: Physician, No PCP We would like to thank you for choosing [facility] for your emergency medical needs. We examined [...] health of those around you. Call the [employer] at 8-809-MTXP-USA or the [employer] at 1-253-ASC-5181 for more information.High blood pressure: Your screening blood pressure today was 115 mm Hg / . Hypertension (high blood pressure) is blood pressure over 120/80. People with hypertension should contact their primary care provider within 30 days to follow up. Check your patient portal for additional blood pressure information.Immunizations:I mmunization is a way to protect against deadly infections. Discuss this with your child's central supply clerk, or Public Health Department. Your family practice doctor can determine if you need pneumonia or flu vaccine. The [facility] Department can be reached at .Domestic Violence:If [...] suicide hotline, anytime day or night, at 7-806-291-XYCI. Pharmacy Information:Below is a list of 24 hour pharmacies that we are aware of. We suggest that you call the specific pharmacy for their hours before traveling to a location. Hours may vary on holidays. [facility] [address] [address] [phone] [place] [address] [phone] [place] [address] [phone] [address] [phone] [address] [phone] [address] [phone] [place] [address] [phone] Take all medications as directed. If you need prescription assistance, contact the following agencies:?? Partnership for Prescription Assistance at or www.pparx.org?? [facility] at or www.Coopkanicsstrx.org?? www.ChippmunkRx.Nuventix is a site with many valuable coupons Patient Education Materials JODI BOSTON has been given the following patient education materials: [facility] [address] [place] [id number]: [phone] Release FormThis notice verifies that your employee [...] Released: 07/06/2006 Document Revised: 07/27/2015 Document Reviewed: 07/20/2012Xenaevcarli Interactive Patient Education ?2016 [employer].ENTPharyngitisPharyngit is is redness, pain, and swelling (inflammation) [...] urine clear or pale yellow. ?Only take beec-azh-mlgdkbp or prescription medicines as directed by your [...] Document Reviewed: 03/13/2014Prieto Interactive Patient Education ?2016 [employer].Strep ThroatStrep throat is an infection of the [...] Document Reviewed: 10/29/2015Xenaevcarli Interactive Patient Education ?2016 [employer] [facility].Emergency MedicineUpper Respiratory Infection, AdultMost upper [...] Document Reviewed: 10/11/2014Prieto Interactive Patient Education ?2016 [employer].Acute BronchitisBronchitis is inflammation of the airways that [...] Document Reviewed: 12/27/2013Prieto Interactive Patient Education ?2016 [employer]><><><><><><><><><><>< ><><><><><><><><><><><><><> Patient Visit Summary Signature JODI BOSTON has been given the following list of patient education materials, prescriptions and follow-up instructions: TEJ Whitten MORGAN A, have received the above patient education materials/instructions and have verbalized understanding: Date Time Patient Signature Date Time Provider Signature Normal [facility] ED Physician Noteson 018 ED Physician Notes Patient: NORIS BOSTON MRN: ([id number] Age: 22 years Sex: Female : 1995 Associated Diagnoses: None Author: Gabriel Hutchinson History of Present Illness I have introduced myself as the PA and informed the patient of the supervising/ collaborating physician who is available upon request. I have discussed the case with the ED physician who participated in the decisions regarding any therapeutic interventions. Physician: Dr. RadfordSayino73-[id number] white female with history of heart murmur [...] congestion and mild cough. She used numerous kyrl-fqn-ruftchv medications and thought that she was getting [...] Upper Respiratory Infection, Adult, AA-Zippy's work release. ([id number]). Follow up with: ; [facility] ([facility]) Within Follow-up as needed This is [...] Chief Complaint-Triage Fever, Cough/ST, Congestion . [facility] ED Physician Notes PDF [facility] XR Chest 2 Viewson 8 XR Chest 2 views STUDY: Chest two vie ws dated 10/10/2017 1:59 PM.COMPARISON: None.HISTORY: Cough. Fever. 3 days of symptoms. Back pain. Smoking history.FINDINGS: The heart and mediastinum are not enlarged. Vasculature is not increased. No acute consolidation, effusion or pneumothorax is identified.IMPRESSION: No acute cardiopulmonary disease identified. Immediate final results were provided per protocol.[place] thanks you for the opportunity to care for your patient. Workstation ID: [id number] - [id number] FINAL REPORT Dictated By: Marcos Dueñas MD 10/10/2017 14:01Assigned Physician: Marcos Dueñas MDReviewed and Electronically Signed By: Marcos Dueñas MD 10/10/2017 14:01Transcribed by: HELEN 10/10/2017 14:01Technologist: [facility] Normal [facility] BMPon 05-07-2017 Anion gap 3 molar conc 14 mmol/L Invalid Interpretation Code 10 - 20 mmol/L [facility] Calcium mass conc 9.0 mg/dL Invalid Interpretation Code 8.4 - 10.2 mg/dL [facility] Chloride molar conc 102 mmol/L Invalid Interpretation Code 98 - 108 mmol/L [facility] Creatinine mass conc 0.52 mg/dL Invalid Interpretation Code 0.4 - 1.1 mg/dL [facility] GFR/1.73 sq M predicted among non-blacks MDRD vol rate/area (S/P/Bld) The eGFR should be used for monitoring renal function only and not for medication dosing. Invalid Interpretation Code [facility] GFR/1.73 sq M.predicted CKD-EPI vol rate/area (S/P/Bld) 137 mL/min/1.73 m2 Invalid Interpretation Code >=60 [facility] Glucose mass conc 88 mg/dL Invalid Interpretation Code 65 - 99 mg/dL [facility] HCO3 molar conc 27 mmol/L Invalid Interpretation Code 21 - 32 mmol/L [facility] Potassium molar conc 3.7 mmol/L Invalid Interpretation Code 3.5 - 5.1 mmol/L [facility] Sodium molar conc 139 mmol/L Invalid Interpretation Code 135 - 145 mmol/L [facility] Urea nitrogen mass conc 13 mg/dL Invalid Interpretation Code 8 - 25 mg/dL [facility] Urea nitrogen/Creatinine mass ratio 25.0 mg/mg High 10.0 - 20.0 [facility] CBC Auto Differentialon 04-19 Basophils Auto #/vol (Bld) 0.02 K/mcL Invalid Interpretation Code 0.00 - 0.30 [facility] Basophils/100 WBC Auto (Bld) 0.3 % Invalid Interpretation Code [facility] Eosinophils Auto #/vol (Bld) 0.06 K/mcL Invalid Interpretation Code 0.00 - 0.50 [facility] Eosinophils/100 WBC Auto (Bld) 0.8 % Invalid Interpretation Code [facility] Erythrocyte distribution width Auto Entitic volume (RBC) 18.4 % High 11.6 - 14.8 % [facility] Hematocrit Auto Volume Fraction (Bld) 36.9 % Invalid Interpretation Code 36 - 46 % [facility] Hemoglobin mass conc (Bld) 11.4 g/dL Low 12 - 16 g/dL [facility] Immature granulocytes #/vol (Bld) 0.02 K/mcL Invalid Interpretation Code 0.00 - 0.30 [facility] Immature granulocytes/100 WBC (Bld) 0.30 % Invalid Interpretation Code [facility] Comment on above: The IG parameter is the percentage of metamyelocytes, myelocytes, and promyelocytes. Lymphocytes Auto #/vol (Bld) 2.18 K/mcL Invalid Interpretation Code 0.90 - 4.00 [facility] Lymphocytes/100 WBC Auto (Bld) 28.3 % Invalid Interpretation Code [facility] MCH Auto Entitic mass (RBC) 24.6 pg Low 26 - 34 pg [facility] MCHC Auto mass conc (RBC) 30.9 g/dL Low 31 - 37 g/dL [facility] MCV Auto Entitic volume (RBC) 79.7 fL Low 80 - 100 fL [facility] Monocytes Auto #/vol (Bld) 0.56 K/mcL Invalid Interpretation Code 0.30 - 0.90 [facility] Monocytes/100 WBC Auto (Bld) 7.3 % Invalid Interpretation Code [facility] Neutrophils Auto #/vol (Bld) 4.85 K/mcL Invalid Interpretation Code 1.70 - 7.00 [facility] Neutrophils/100 WBC Auto (Bld) 63.0 % Invalid Interpretation Code [facility] Nucleated RBC #/vol (Bld) 0.00 K/mcL Invalid Interpretation Code 0.00 - 0.00 [facility] Nucleated RBC/100 WBC Ratio (Bld) 0.0 % Invalid Interpretation Code [facility] Platelet mean volume Auto Entitic volume (Bld) 11.3 fL Invalid Interpretation Code 9 - 15.5 fL [facility] Platelets Auto #/vol (Bld) 277 K/mcL Invalid Interpretation Code 150 - 400 [facility] RBC Auto #/vol (Bld) 4.63 M/mcL Invalid Interpretation Code 4.00 - 5.20 [facility] WBC Auto #/vol (Bld) 7.69 K/mcL Invalid Interpretation Code 4.50 - 11.00 [facility] CBC w/ Diffon 05-07-2017 CBC w/ Diff The following orders were created for panel order CBC w/ Diff. Procedure Abnormality Status --------- ------ CBC Auto Differential[[id number]] Abnormal Final result Please view results for these tests on the individual orders. Invalid Interpretation Code [employer] Work Phone: Gold Topon 05-07-2017 Extra Tube Hold for add-ons. Invalid Interpretation Code [facility] Comment on above: Auto resulted. Warren Drawon 05-07-2017 Warren Draw The following orders were created for panel order Warren Draw. Procedure Abnormality Status --------- ------ Gold Top[[id number]] Final result Light Blue Top[[id number]] Final result Wright Top[[id number]] Final result Lutz Top[[id number]] Final result Please view results for these tests on the individual orders. Invalid Interpretation Code [facility] Work Phone: Urinalysison 05-07-2017 Bacteria Auto Ql (U) None Seen Invalid Interpretation Code None Seen /hpf [facility] Bilirubin Ql (U) Negative Invalid Interpretation Code Negative [facility] Clarity Refractometry automated Nom (U) Clear Invalid Interpretation Code Clear [facility] Color Auto Nom (U) Yellow Invalid Interpretation Code Colorless, Yellow [facility] Epithelial cells.squamous Auto #/area (Urine sed) <1 Invalid Interpretation Code 0 - 4 /hpf [facility] Glucose Automated test strip mass conc (U) Negative Invalid Interpretation Code Negative mg/dL [facility] Hemoglobin Automated test strip Ql (U) Negative Invalid Interpretation Code Negative [facility] Interpretation and review of laboratory results Abnormal Invalid Interpretation Code [facility] Ketones mass conc (U) Negative Invalid Interpretation Code Negative mg/dL [facility] Leukocyte esterase Automated test strip Ql (U) Negative Invalid Interpretation Code Negative [facility] Mucus Auto #/area (Urine sed) Few Abnormal None Seen, Rare /lpf [facility] Nitrite Automated test strip Ql (U) Negative Invalid Interpretation Code Negative [facility] pH Test strip (U) 6.0 [pH] Invalid Interpretation Code 5.0 - 7.0 [facility] Protein mass conc (U) 30 Abnormal Negative mg/dL [facility] Comment on above: False positive resul ts may occur in urines with large amounts of hemoglobin, pH greater than 8.0, contrast medium, or disinfectants including ammonium compounds. Specific gravity Automated test strip Relative Density (U) 1.021 1 Invalid Interpretation Code 1.005 - 1.025 [facility] Urobilinogen Test strip Qn (U) <2.0 Invalid Interpretation Code <2.0 mg/dL [facility] WBC Auto #/area (Urine sed) 1 /hpf Invalid Interpretation Code 0 - 5 [facility] Urinalysis Microscopic examinat ion is performed on all urinalysis samples and only positive findings are reported. The test for blood on the chemical analytic portion of urinalysis may also be positive due to hemoglobinuria and myoglobinuria and if red blood cells are present they are quantified by microscopic examination. Invalid Interpretation Code [facility] Urine Pregnancyon 05-07-2017 HCG ( test) Ql (U) Negative Invalid Interpretation Code Negative [facility] Interpretation and review of laboratory results Normal Invalid Interpretation Code [facility] Vital Signs Date Time Vital Sign Value Performing Clinician Facility 12-27-2017 11:36-0400 BMI (Body Mass Index) 23.64 kg/m2 [facility] 12-27-2017 11:36-0400 Body Temperature 98.29 [degF] [facility] 12-27-2017 11:36-0400 BP Diastolic 83 mm[Hg] [facility] 12-27-2017 11:36-0400 BP Systolic 121 mm[Hg] [facility] 12-27-2017 11:36-0400 Height 162.6 cm [facility] 12-27-2017 11:36-0400 Pulse (Heart Rate) 84 /min [facility] 12-27-2017 11:36-0400 Pulse Oximetry 97 % [facility] 12-27-2017 11:36-0400 Respiratory Rate 12 /min [facility] 12-27-2017 11:36-0400 Weight 62.46 kg [facility] 05-08-2017 13:44-0400 BP Diastolic 71 mm[Hg] Solis French [facility] Work Phone: 05-08-2017 13:44-0400 BP Systolic 118 mm[Hg] Solis French [facility] Work Phone: 05-08-2017 13:44-0400 Pulse (Heart Rate) 68 /min Solis French [facility] Work Phone: 05-08-2017 13:44-0400 Pulse [facility]ximetry 99 % [facility] 05-08-2017 13:44-0400 Respiratory Rate 18 /min Solismallika French [facility] Work Phone: 05-08-2017 10:49-0400 BMI (Body Mass Index) 23.17 kg/m2 [facility] Work Phone: 05-08-2017 10:49-0400 Body Temperature 98.29 [degF] Solis French [employer] Work Phone: 05-08-2017 10:49-0400 Height 162.6 cm Solis French [employer] [facility] Work Phone: 05-08-2017 10:49-0400 Weight 61.24 kg Solis French [employer] Work Phone: 05-07-2017 19:00-0400 BP Diastolic 62 mm[Hg] Henri Pulliam [employer] Work Phone: 05-07-2017 19:00-0400 BP Systolic 108 mm[Hg] Henri Pulliam [employer] Work Phone: 05-07-2017 19:00-0400 Pulse (Heart Rate) 63 /min Henri Pulliam [employer] Work Phone: 05-07-2017 19:00-0400 Respiratory Rate 16 /min Henri Pulliam [employer] Work Phone: 05-07-2017 16:14-0400 BMI (Body Mass Index) 22.86 kg/m2 Henri Pulliam [employer] Work Phone: 05-07-2017 16:14-0400 Body Temperature 98.8 [degF] Henri Pulliam [employer] Work Phone: 05-07-2017 16:14-0400 Height 162.6 cm Henri Pulliam [employer] Work Phone: 05-07-2017 16:14-0400 Pulse Oximetry 100 % Henri Pulliam [employer] Work Phone: 05-07-2017 16:14-0400 Weight 60.42 kg Henri Pulliam [employer] Work Phone: Encounters Encounter Date Encounter Type Care Provider Facility Start: 08-28-2023 Clinisync Result Encounter Jeri GARRETT Work Phone: [facility] Unsolicited Start: 08-28-2023 Clinisync Result Encounter Jeir GARRETT Work Phone: [facility] Unsolicited Start: 07-09-2021 End: 07-12-2021 ambulatory DARY Hunter [facility] Start: 12-27-2017 End: 12-27-2017 Ambulatory ROXANE SIMS [facility] Start: 12-27-2017 End: 12-27-2017 Office/outpatient visit, est, level 3 Mari Ham Work Phone: [facility] [address] Start: 11-21-2017 End: 11-21-2017 Emergency department patient visit No PCP Physician Facility:[facility] Start: 10-10-2017 End: 10-10-2017 Emergency department patient visit No PCP Physician Facility:[facility] Start: 05-08-2017 End: 05-08-2017 Emergency department patient visit ROXANE SIMS [facility] Start: 05-08-2017 End: 05-08-2017 Emergency department patient visit Solis French Work Phone: [facility] Emergency Department Comment on above: Trapezius muscle spa sm (Primary Dx) Start: 05-07-2017 End: 05-07-2017 [facility] Start: 05-07-2017 End: 05-07-2017 Emergency department patient visit Henri French Herac[facility] Work Phone: [facility] Emergency Department Comment on above: Nonintractable heada cheryle, unspecified chronicity pattern, unspecified headache type (Primary Dx) Procedures Date Procedure Procedure Detail Performing Clinician Start: 08-28-2023 ALL CBC WITH AUTO DIFF Jeri GARRETT Work Phone: Plan of Treatment Date Care Activity Detail Author Start: 08-31-2023 End: 08-31-2023 Patient encounter procedure 08/31/2023 4:00 PM EST Routine [facility] [address] [place] [id number] Timothy Bourgeois, DO [address] [place] [address] Third trimester [facility] Comment on above: Third trimester preg dinora Start: 03-20-2023 Influenza vaccination Influenz a Vaccine (#1) [facility] Start: 03-20-2018 Influenza vaccination SEQUENTI AL INFLUENZA VACCINE (Season Ended) [facility] Start: 03-20-2017 Influenza vaccination SEQUENTI AL INFLUENZA VACCINE (#1) [facility] Work Phone: Start: 2007 Vaccination for luciana n papillomavirus HPV VACCINES (1 of 3 - Female 3 Dose Series) [facility] Work Phone: Start: 1995 Adult depression screening assessment DEPRESSION SCREENING (PHQ9) [facility] Start: 1996 Screening for malign ant neoplasm of cervix PAP SMEAR [facility] Work Phone: Start: 1995 SUBSTANCE ABUSE SCRE ENING (AUDIT-C) SUBSTANCE ABUSE SCREENING (AUDIT-C) [facility] Start: 1996 Tetanus vaccination TETANUS EVERY 10 YR [facility] Work Phone: Streptococcus pyogen es [Presence] in Throat by Organism specific culture Strep A Culture, Throat Routine Sore throat Ordered: 12/27/2017 [facility] Immunizations Immunization Date Immunization Notes Care Provider Mateo francisco 05-08-2016 influenza, seasonal, injectable Henri Pulliam [facility] Work Phone: 05-08-2016 influenza virus vaccine, unspecified formulation Jeri GARRETT Work Phone: [facility] Healthcare Payers Date Payer Category Payer Unknown [id number] 2017 Unknown [id number] 2016 Unknown Social History Date Type Detail Facility Start: 12-27-2017 [facility] History of tobacco use Cigarette Smoker [facility] Work Phone: Start: 12-27-2017 Cigarettes smoked current (pack per day) - Reported [facility] Sex Assigned At Not on file [facility] Work Phone: Start: 05-07-2017 End: 05-08-2017 Tobacco smoking status ALIS Former smoker [facility] Work Phone: Tobacco smoking stat [facility] Tobacco smoking consumption unknown [facility] Start: 02-17-2023 [facility] Start: 1995 Sex Assigned At Female [facility] Start: 04-02-2023 Gender identity Identifies as female gender (finding) [facility] Start: 04-02-2023 Sexual orientation Bisexual (finding ) [facility] Healthcare Instructions * Patient Instructions - Mari [...] 1 cup of warm water. Take an ojxr-oxw-bekhfei pain medicine, such as acetaminophen (Tylenol), ibuprofen (Advil, Motrin),or naproxen (Aleve). Read and follow all instructions on the label. Be careful when taking rioa-ohg-vowtjby cold or flu medicines and Tylenol at [...] soup, may help decrease throat pain. Use ijhz-gji-tmgggum throat lozenges to soothe pain. Regular cough [...] Log into your personal health record on [email or web address] and enter U420 in the Education box to learn more about Sore Throat: Care Instructions. Current as of: November 28, 2016 Content Version: .20059571-0313 [employer]. Care instructions adapted under license by your healthcare professional. If you have questions about a medical condition or this instruction, always ask your healthcare professional. [employer] disclaims any warranty or liability for your [...] rest if you feel tired. Take an xeiy-oqd-bfzlbod pain medicine if needed, such as acetaminophen (Tylenol), ibuprofen (Advil, Motrin), or naproxen (Aleve). Read and follow all instructions on the label. Be careful when taking oxyn-wmg-sdfdglo cold or flu medicines and Tylenol at [...] Log into your personal health record on [email or web address] and enter L906 in the Education box to learn more about Viral Infections: Care Instructions. Current as of: June 06, 2017 Content Version: .20058730-5025 [employer]. Care instructions adapted under license by your healthcare professional. If you have questions about a medical condition or this instruction, always ask your healthcare professional. [employer] disclaims any warranty or liability for your [...] your doctor if you can take an bowp-nkk-wkuziyr medicine. Be careful not to take pain [...] Log into your personal health record on [email or web address] and enter M271 in the Education box to learn more about Headache: Care Instructions. Current as of: May 02, 2016 Content Version: 11.2 2680-4984 [employer]. Care instructions adapted under license by your healthcare professional. If you have questions about a medical condition or this instruction, always ask your healthcare professional. [employer] disclaims any warranty or liability for your use of this information. in this encounter Additional Source Comments INFORMATION SOURCE (unrecogn ized section and content) DATE CREATED AUTHOR 01/05/2018 [facility] DATE CREATED AUTHOR AUTHOR'S ORGANIZ ATION 01/12/2018 [facility] DATE CREATED AUTHOR AUTHOR'S ORGANIZ ATION 02/02/2018 [facility] DATE CREATED AUTHOR AUTHOR'S ORGANIZ [...] the patient. I discussed the patient with QUALITY ASSURANCE MONITOR CHASSIS/PA. I agree with the QUALITY ASSURANCE MONITOR CHASSIS/PA treatment plan. I agree with the QUALITY ASSURANCE MONITOR CHASSIS/PA plan of care. I agree with the QUALITY ASSURANCE MONITOR CHASSIS/PA dispo as documented. The patient has been [...] Procedure Abnormality Status --------- ------ CBC Auto Differential[[id number]] Abnormal Final result Please view results for these tests on the individual orders. RAINBOW DRAW Narrative: The following orders were created for panel order Warren Draw. Procedure Abnormality Status --------- ------ Gold Top[[id number]] In process Light Blue Top[[id number]] In process Wright Top[[id number]] In process Lutz Top[[id number]] In process Please view results for these [...] may be different from the original. [facility] ED Resident Note: NAME: Jodi Boston 22 y.o. CSN: [id number] PCP: Roxane Beasley DO History: Chief Complaint: [...] PMSx: Past Surgical History: Procedure Laterality Date Biology Internship WISDOM TOOTH EXTRACTION FAM. 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 RAINBOW DRAW Narrative: The following orders were created for panel order Warren Draw. Procedure Abnormality Status --------- ------ Gold Top[[id number]] In process Light Blue Top[[id number]] In process Wright Top[[id number]] In process Lutz Top[[id number]] In process Please view results for these [...] Given 05/07/171728) This note was generated by Dragon voice recognition software and as a result grammatical or spelling errors may occur using this program. Clinical Impression: SNOMED CT(R) 1. Nonintractable headache, unspecified chronicity pattern, unspecified headache type HEADACHE Disposition: Patient is being discharged to home New Prescriptions No medications on file Alyssa Tellez DO ED Resident Physician [facility] Emergency Department (Please note that portions of this note have been completed with a voice recognition software. Efforts were made to correct any errors, but occasionally words are mis-transcribed.) Alyssa Tellez DO Resident 05/07/17 8831 SECONDARY ASSESSMENT - Breathing regular and unlabored, [...] wall movement. 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 [...] the room to provide pt with DC/administrative program specialist/care instructions. 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 All imaging has been read by a Radiologist. Eleno Thao PA-C 05/08/17 1310 Pt presents to the ED c/o of severe neck pain. Pt was tx at [facility] yesterday for migraine at [...] night, pt was seen in ED at [facility] yesterday treated for migraine [...] BE BASED ON THE PRIMARY CLINICAL RECORDS. [employer] [facility]. provides no warranty or guarantee of the accuracy or completeness of information in this document.
== END 2023-12-16 10:10 | disposition home or self-care (01) ==
LOC: FBCO 08:12
PROVIDERS: Visit Provider Obstetrics & Gynecology
DX: Z39.1 Encounter for care and examination of lactating mother (principal)
CPT/HCPCS: G0463

== ENCOUNTER 2024-02-01 10:09 | Outpatient (OUT) | payer OTHER, SELFPAY | END 2024-02-01 10:10 | disposition home or self-care (01) | PROVIDERS: Visit Provider Obstetrics & Gynecology | DX: Z39.1 Encounter for care and examination of lactating mother (principal) ==

== ENCOUNTER 2024-02-08 08:24 | Outpatient (OUT) | payer OTHER, SELFPAY ==
--- OUTSIDE RECORDS SUMMARY | 2024-02-08 08:48 | XMS_ITS | CCD ---
Author Organization [facility] Care Team Providers Care Director Marketing Name Role Phone Ramos Roxane Sims Unavailable RAMOS ROXANE DWYERECCA Unavailable Unavail able MARI HAM [...] Propensity to adverse reactions 08-26-19 19 Rash [facility] Work Phone: (1 source) Prochlorperazine Drug Allergy 05-07-20 18 [facility] Medications Current Medications Medication Drug Class(es) [...] for constipation 30 capsule 5 08/05/2023 Active [id number] 0.3 ml EPINEPHrine 1 mg/ml auto-injector (4 [...] parts viscous lidocaine 2%, diphenhydramine 12.5mg/5mL, maalox [id number]-[id number]-20ke/5mL (1 source) Start: 018 End: 018 magic mouthwash susp equal parts viscous lidocaine 2%, diphenhydramine 12.5mg/5mL, maalox [id number]-804lg-33qq/5mL Swish and spit 5 mL every 6 [...] morning. 360 capsule 0 08/05/2023 08/04/2024 Active Xlxxgc-LtXeu-WcNfi-FA-C A-[place] (Complete Annette DHA) 29-1-200 & 200 MG misc (1 source) Start: 023 Amtjqi-AiEtg-EkEru-FA- [place] (Complete DHA) 29-1-200 & 200 MG misc [...] WITH AUTO DIFFon BASOPHILS ABSOLUTE AUTO 0.0 [facility] Basophils/100 WBC (Bld) 0.1 % Low 0.2 - 2.0 % [facility] Eosinophils/100 WBC (Bld) 0.4 % Low 0.9 - 7.0 % [facility] Erythrocyte distribution width (RBC) [Ratio] 13.4 % 11.0 - 15.0 % [facility] Hematocrit (Bld) [Volume fraction] 29.5 % Low 36.0 - 48.0 % [facility] Hemoglobin (Bld) [Mass/Vol] 9.2 g/dL Low 12.0 - 16.0 g/dL [facility] IMMATURE GRANULOCYTES ABS AUTO 0.08 High [facility] Immature granulocytes/100 WBC (Bld) 0.8 % High 0.0 - 0.5 % [facility] Interpretation and review of laboratory results Abnormal [facility] LYMPHOCYTES ABSOLUTE AUTO 1.8 [facility] Lymphocytes/100 WBC (Bld) 19.1 % Low 20.5 - 60.0 % [facility] MCH (RBC) [Entitic mass] 26.5 pg Low 26.7 - 34.0 pg [facility] MCHC (RBC) [Mass/Vol] 31.2 g/dL 29.9 - 35.2 g/dL [facility] MCV (RBC) [Entitic vol] 85.0 fL 81.0 - 99.0 fL [facility] MONOCYTES ABSOLUTE AUTO 0.8 [facility] Monocytes/100 WBC (Bld) 8.0 % 1.7 - 12.0 % [facility] NEUTROPHILS ABSOLUTE AUTO 6.9 High [facility] Neutrophils/100 WBC (Bld) 71.6 % 43.0 - 75.0 % [facility] Platelet mean volume (Bld) [Entitic vol] 10.5 fL 9.5 - 13.5 fL [facility] EO # 0.0 [facility] TB PLT 192 [facility] RBC 3.47 Low [facility] WBC 9.6 [facility] XR CHEST (2 VW)on 07-09-2021 [...] Hamzah Kaba MD 07/09/21 Final result Normal [facility] POC Rapid Strep Aon 12-28-19 Interpretation and review of laboratory results Normal Invalid Interpretation Code [facility] Streptococcus pyogenes antigen presence Negative Invalid Interpretation Code Negative [facility] Basic Metabolic Panelon 05-0 Anion gap 8.0 mmol/L Normal 6.0-18.0 [facility] Comment on above: Result Comment: PLEA SE NOTE:The calculated Anion Gap(AGAP) does not include Potassium. Performed By: #### 6 9405-9, 87931-4t6, 3040-3, 59703-0, 77998-9 ####[facility], [address], [place]. Calcium 9.3 mg/dL Normal 8.9-10.3 [facility] Comment on above: Performed By: #### 6 9405-9, 22176-4e4, 3040-3, 93709-7, 94569- 3 ####[facility], [address] [place] Chloride 106 mmol/L Normal 98-107 [facility] Comment on above: Performed By: #### 6 9405-9, 30767-2x0, 3040-3, 13221-0, 29547- 3 ####[facility], [address] [place], [place]. CO2 25 mmol/L Normal 22-32 [facility] Comment on above: Performed By: #### 6 9405-9, 25552-7m1, 3040-3, 95149-0, 60983- 3 ####[facility], [address] [place], [place]. Creatinine 0.65 mg/dL Low 0.66-1.30 [facility] Comment on above: Performed By: #### 6 9405-9, 28432-1a0, 3040-3, 06888-9, 23541- 3 ####[facility], [address] [place], [place]. Glucose mass conc 88 mg/dL Normal 70-110 [facility] Comment on above: Performed By: #### 6 9405-9, 53407-6p9, 3040-3, 20766-5, 04963- 3 ####[facility], [address] [place]. Potassium molar conc 3.5 mmol/L Low 3.6-5.1 [facility] Comment on above: Performed By: #### 6 9405-9, 91458-9w6, 3040-3, 50449-9, 63356- 3 ####[facility], [address], [place]. Sodium 139 mmol/L Normal 136-145 [facility] Comment on above: Performed By: #### 6 9405-9, 52759-4m6, 3040-3, 49137-9, 09871- 3 ####[facility], [address]. Urea nitrogen mass conc (BldV) 10 mg/dL Normal 8-20 [facility] Comment on above: Performed By: #### 6 9405-9, 56924-1a0, 3040-3, 08229-0, 10507- 3 ####[facility], [address]. CBCon 11-21-2017 Erythrocyte distribution width Entitic volume (RBC) 20.1 % High 11.0-14.8 [facility] Comment on above: Performed By: #### 2 7-0 ####[facility], [address] [place], [place] [address]. Erythrocytes (RBC) 4.57 million/mcL Normal 3.80-5.10 [facility] Comment on above: Performed By: #### 2 7-0 ####[facility], [address] [place] [address]. Hematocrit (HCT) 34.8 % Low 35.0-45.0 [facility] Comment on above: Performed By: #### 2 7-0 ####[facility], [facility]. Hemoglobin mass conc (Bld) 11.3 g/dL Low 12.0-16.0 [facility] Comment on above: Performed By: #### 2 7-0 ####[facility], [address]. MCH 24.8 Picograms Low 27.0-34.0 [facility] Comment on above: Performed By: #### 2 4317-0 ####[facility], [address], [place]. MCHC mass conc (RBC) 32.6 g/dL Normal 32.0-36.0 [facility] Comment on above: Performed By: #### 2 7-0 ####[facility], [address] [place], [place]. MCV 76.1 fL Low 80.0-97.0 [facility] Comment on above: Performed By: #### 2 4317-0 ####[facility], [address], [place]. Platelet mean volume Entitic volume (Bld) 8.9 FL Normal 6.2-12.1 [facility] Comment on above: Performed By: #### 2 4317-0 ####[facility], [address] [place], [place]. Platelets 251 thou/mcL Normal 142-424 [facility] Comment on above: Performed By: #### 2 4317-0 ####[facility], [address], [place]. WBC (Leukocytes) 6.4 thou/mcL Normal 4.6-10.2 [facility] Comment on above: Performed By: #### 2 4317-0 ####[facility], [address], [place]. CT Abd and Pelvis w Contrast [...] emergency department following dictation on 11/21/2017 3:41 AM.[facility] thanks you for the opportunity to care for your patient. Workstation ID: [id number] - [id number] FINAL REPORT Dictated By: Pérez Queen MD 11/21/2017 03:38Assigned Physician: Pérez Queen MDReviewed and Electronically Signed By: Pérez Queen MD 11/21/2017 03:42Transcribed by: HELEN 11/21/2017 03:38Technologist: [facility] Normal [facility] Culture Urine + Susceptibili tyon 11-21-2017 Urine culture, bacteria [facility] MicrobiologyPROCEDURE: Culture Urine + SusceptibilitySOURCE: Urine BODY SITE:COLLECTED DATE/TIME: 11/21/2017 01:41 EDT RECEIVED DATE/TIME: 11/21/2017 01:41 EDTSTART DATE/TIME: 11/21/2017 01:41 EDT FREE TEXT SOURCE: URINEINTERFACED REPORTSFinal Report []Verified Date/Time/Personnel: 11/22/2017 12:17 EDT CONTRIBUTOR_SYSTEM, CO_PNORGANISMS USUALLY ASSOCIATED WITH VAGINAL,URETHRAL,AND/OR SKIN CONTAMINATION PRESENT. [facility] Comment on above: Performed By: #### 5 8077-9, 49183-8 ####[facility], [address] [place], [place].#### 630-4 ####[facility] [address], [place] Depart Summaryon 11-21-2017 Depart Summary EMERGENCY DEPARTMENT DISCHARGE SUMMARYPATIENT NAME:JODI BOSTON MRN: (COL)-[id number]: 22 Years SEX: Female PHONE:[phone]: 11/20/2017 10:57 PM : 1995 ATTENDING PHYSICIAN:Ernestine Mckeon MD PCP: Physician, No PCP CHIEF COMPLAINT: abdominal pain Allergies Compazine (Anger)Problems Active No Chronic Problems DISCHARGE DIAGNOSIS: DISCHARGE INSTRUCTIONS: Work Release (CO-S) (CUSTOM); Abdominal Pain, Adult ED PHYSICIAN DOCUMENTATION: History of Present Cvxdtcb11-potp-kbd female with no significant medical history presents [...] Result(s): Date Order Results 11/20/2017 23:06 Specific [place] Urine POCT N 1.030 11/20/2017 23:06 pH Urine POCT N 5 11/20/2017 23:06 Urobilinogen Urine POCT N 0 mg/dL 11/21/2017 01:41 Appearance Urine A TURBID 11/21/2017 01:41 Specific [place] Urine H 1.032 11/21/2017 01:41 Blood Urine [...] emergency department following dictation on 11/21/2017 3:41 AM.[facility] thanks you for the opportunity to care [...] any generalized worsening of your condition. Normal [facility] ED Beth Jacome 11-21-2017 [address], [place] [address] [facility] Discharge Instructions JODI [...] Servicios de Emergencia Name JODI BOSTON MRN (COL)-[id number] PLEASE READ THE FOLLOWING REGARDING YOUR MEDICATIONS [...] doses are changed, or new medications (including obxi-nef-jjgteov products) are added. If you have any [...] TAKE UNTIL YOU TALK TO YOUR DOCTORNone [facility] [place] [address] Emergency Department Discharge Instructions Name: JODI BOSTON Current Date: 11/21/2017 03:50:01 : 1995 12:00 PM Primary Physician: Physician, No PCP We would like to thank you for choosing [facility] for your emergency medical needs. [...] health of those around you. Call the [place] [employer] at 6-450-TQIA-[facility] or the [place] [employer] at 8-686-TGB-9941 for more information.High blood pressure: Your screening blood pressure today was 108 mm Hg / . Hypertension (high blood pressure) is blood pressure over 120/80. People with hypertension should contact their primary care provider within 30 days to follow up. Check your patient portal for additional blood pressure information.Immunizations:I mmunization is a way to protect against deadly infections. Discuss this with your child's disabilities services officer, or Public Health Department. Your family practice doctor can determine if you need pneumonia or flu vaccine. The [facility] can be reached at .Domestic Violence:If you [...] suicide hotline, anytime day or night, at 2-902-320-YEFJ. Pharmacy Information:Below is a list of 24 hour pharmacies that we are aware of. We suggest that you call the specific pharmacy for their hours before traveling to a location. Hours may vary on holidays. [facility] [address] [place] [address] [phone] [address] [phone] [place] [address] [phone] [place] [address] [phone] [place] [address] [phone] [place] [address] [phone] [place] [address] [phone] Take all medications as directed. If you need prescription assistance, contact the following agencies:?? Partnership for Prescription Assistance at or www.Political Matchmakersx.org?? [facility] Best Rx at or www.Revenewrx.KIHEITAI?? [employer] is a site with many valuable coupons [...] alleviate any discomfort you are experiencing:???Only take nvdz-ord-vbopsvu or prescription medicines as directed by your [...] Document Reviewed: 03/15/2014[employer] Patient Education ?2016 [employer]><><><><><><><><><><>< ><><><><><><><><><><><>< ><> Patient Visit Summary Signature JODI BOSTON has been given the following list of patient education materials, prescriptions and follow-up instructions: TEJ Whitten MORGAN A, have received the above patient education materials/instructions and have verbalized understanding: Date Time Patient Signature Date Time Provider Signature Normal [facility] ED Physician Noteson 018 ED Physician Notes [...] chronic problems Historical No qualifying dataProcedure/Surgical History [place] tooth.Medications Home No active home medications ED [...] department following dictation on 11/21/2017 3:41 AM. [facility] thanks you for the opportunity to care for your patient. Workstation ID: [id number] - [id number] ORDERS PLACED: Laboratory: Laboratory Urinalysis Manual POCT (CO) Manjeet Hair MD November 20, 2017 23:01 Completed Urine Test POCT (CO) Manjeet Hair MD November 20, 2017 23:01 Completed CBC Ernestine cMkeon MD November 21, 2017 00:59 Completed BMP (Basic Metabolic Panel) Ernestine Mckeon MD November 21, 2017 00:59 Completed Hepatic Function Panel Ernestine Mckeon MD November 21, 2017 00:59 Completed Lipase Ernestine Mckeon MD November 21, 2017 00:59 Completed Urinalysis with Reflex Microscopic + Reflex Culture rEnestine Mckeon MD November 21, 2017 00:59 Completed [...] MD November 21, 2017 00:59 Completed Normal [facility] ED Physician Notes PDF Normal [facility] GFRaaon 11-21-2017 eGFR (black) mL/min/{1.73_m2} Normal [facility] Comment on above: Result Comment: The MDRD equation has not been validated for those over 70 years, women, patients with serious co-morbid conditions, or with extremes of bodysize, muscle mass of nutritional status. Performed By: #### 6 9405-9, 71437-7m5, 3040-3, 21383-4, 21182-4 ####[facility], [address] [place] [address]. GFRbbon 11-21-2017 eGFR (non-black) mL/min/{1.73_m2} Normal [facility] Comment on above: Performed By: #### 6 9405-9, 41363-0m6, 3040-3, 23600-9, 80125- 3 ####[facility], [address], [place]. Hepatic Function Panelon Alanine aminotransferase (ALT) 15 Units/L Normal 14-63 [facility] Comment on above: Performed By: #### 6 9405-9, 46294-4i6, 3040-3, 61178-1, 26733- 3 ####[facility], [address] [place], [place]. Albumin 4.2 g/dL Normal 3.5-4.8 [facility] Comment on above: Performed By: #### 6 9405-9, 75683-0k2, 3040-3, 62719-5, 54374- 3 ####[facility], [address] [place], [place]. Alkaline phosphatase (ALP) 36 Units/L Normal 32-91 [facility] Comment on above: Performed By: #### 6 9405-9, 58907-2o9, 3040-3, 28745-8, 96284- 3 ####[facility], [address] [place], [place]. Aspartate aminotransferase (AST) 19 Units/L Normal 15-41 [facility] Comment on above: Performed By: #### 6 9405-9, 85962-4e4, 3040-3, 99515-0, 07159- 3 ####[facility], [address] [place], [place]. Bilirubin (direct) 0.1 mg/dL Normal 0.1-0.5 [facility] Comment on above: Performed By: #### 6 9405-9, 95025-0a7, 3040-3, 06939-0, 06478- 3 ####[facility], [address] [place], [place] Bilirubin (total) 0.6 mg/dL Normal 0.3-1.2 [facility] Comment on above: Performed By: #### 6 9405-9, 64899-0k7, 3040-3, 90113-7, 80325- 3 ####[facility], [address], [place]. Bilirubin.indirect mass conc 0.5 mg/dL Normal 0.0-1.0 [facility] Comment on above: Performed By: #### 6 9405-9, 63571-2w4, 3040-3, 02046-7, 91841- 3 ####[facility], [address]. Protein 6.9 g/dL Normal 6.1-7.9 [facility] Comment on above: Performed By: #### 6 9405-9, 43140-7o2, 3040-3, 00989-0, 96128- 3 ####[facility], [address] [place], [place]. Lipaseon 11-21-2017 Lipase 21 Units/L Low 22-51 [facility] Comment on above: Performed By: #### 6 9405-9, 44438-8j8, 3040-3, 18554-3, 83355- 3 ####[facility], [address]. Urinalysis Microscopicon Urine, amorphous crystals presence in sediment FEW Abnormal NONE/HPF [facility] Comment on above: Performed By: #### 5 8077-9, 38200-2 ####[facility], [address] [facility], [place].#### 630-4 ####[facility] [address], [place] Urine, bacteria in sediment FEW Abnormal NONE/HPF [facility] Comment on above: Performed By: #### 5 8077-9, 80051-5 ####[facility], [address], [place].#### 630-4 ####[facility] [address], [place] Urine, erythrocytes in sediment by area 6 /[HPF] High 0-5 [facility] Comment on above: Performed By: #### 5 8077-9, 16268-0 ####[facility], [address] [place] [address].#### 630-4 ####[place] [address], [place] Urine, mucus presence in sediment MANY Abnormal NONE/LPF [facility] Comment on above: Performed By: #### 5 8077-9, 81972-3 ####[facility], [address] [place] [address].#### 630-4 ####[address] Urine, squamous cells in sediment MANY Abnormal FEW/LPF [facility] Comment on above: Performed By: #### 5 8077-9, 78452-8 ####[facility], [address] [place] [address].#### 630-4 ####[address] WBC Urine 6 /hpf High 0-5 [facility] Comment on above: Performed By: #### 5 8077-9, 46903-0 ####[facility], [address] [place] [address].#### 630-4 ####[place] [address] [place], [place] Urinalysis with Microscopic Automatic with Reflexon 11-21-2017 Bilirubin Test strip mass conc (U) Negative Normal NEGATIVE [facility] Comment on above: Performed By: #### 5 8077-9, 07637-1 ####[facility], [address] [place] [address].#### 630-4 ####[place] [address] [address], [place] Glucose Test strip mass conc (U) NORMAL Normal NORMAL [facility] Comment on above: Performed By: #### 5 8077-9, 39433-4 ####[facility], [address], [place].#### 630-4 ####[place] [address] [place], [place] Ketones Test strip mass conc (U) 80MG/DL Abnormal NEGATIVE [facility] Comment on above: Performed By: #### 5 8077-9, 41034-6 ####[facility], [address], [place].#### 630-4 ####[address] Nitrite Test strip mass conc (U) Negative Normal NEGATIVE [facility] Comment on above: Performed By: #### 5 8077-9, 45138-8 ####[facility], [facility] [address], [place].#### 630-4 ####[place] [address], [place] Urine, appearance TURBID Abnormal CLEAR [facility] Comment on above: Performed By: #### 5 8077-9, 59845-7 ####[facility], [address], [place].#### 630-4 ####[place] [address], [place] Urine, color TELLO Normal YELLOW [facility] Comment on above: Performed By: #### 5 8077-9, 12699-9 ####[facility], [address], [place].#### 630-4 ####[place] [address] Urine, hemoglobin presence 10/UL Abnormal NEGATIVE [facility] Comment on above: Performed By: #### 5 8077-9, 20410-5 ####[facility], [address], [place].#### 630-4 ####[place] [address], [place] Urine, leukocyte esterase presence 25/UL Abnormal NEGATIVE [facility] Comment on above: Performed By: #### 5 8077-9, 61329-4 ####[facility], [address], [place].#### 630-4 ####[place] [address], [place] Urine, pH 5.0 [pH] Normal 4.5-8.0 [facility] Comment on above: Performed By: #### 5 8077-, 91266-5 ####[facility], [address] [facility], [place].#### 630-4 ####[address] Urine, protein 100 mg/dL Abnormal NEGATIVE [facility] Comment on above: Performed By: #### 5 8077-9, 04341-0 ####[facility], [facility], [place].#### 630-4 ####[address] Urine, specific gravity 1.032 High 1.002-1.030 [facility] Comment on above: Performed By: #### 5 8077-9, 12854-0 ####[facility], [address], [place].#### 630-4 ####[address] Urobilinogen Test strip mass conc (U) NORMAL Normal NORMAL [facility] Comment on above: Performed By: #### 5 8077-9, 66304-6 ####[facility], [address] [facility], [place].#### 630-4 ####[place] [address], [place] Depart Summaryon 10-10-2017 Depart Summary EMERGENCY DEPARTMENT DISCHARGE SUMMARYPATIENT NAME:JODI BOSTON : 22 Years SEX: Female PHONE:[phone]: 10/10/2017 1:18 PM : 1995 ATTENDING PHYSICIAN:Yaneth Radford MD PCP: Physician, No PCP CHIEF COMPLAINT: Fever, Cough/ST, Congestion Allergies Compazine (Anger)Problems Active No Chronic Problems DISCHARGE DIAGNOSIS: DISCHARGE INSTRUCTIONS: [employer] work release. ([id number]); Upper Respiratory Infection, Adult; Acute Bronchitis; Pharyngitis; Strep Throat; Sinusitis, Adult ED PHYSICIAN DOCUMENTATION: History of Present Illness I have introduced myself as the PA and informed the patient of the supervising/ collaborating physician who is available upon request. I have discussed the case with the ED physician who participated in the decisions regarding any therapeutic interventions. Physician: Dr. RadfordBgfkpm87-rwim-mht white female with history of heart murmur [...] congestion and mild cough. She used numerous alzr-agt-augogyl medications and thought that she was getting [...] FOLLOW UP:FOLLOW-UP APPOINTMENTS: Provider: Specialty: Address: Date: [facility] [address] [facility] [address] (5) Follow-up as needed Comment: This is [...] be significantly worsening instead of improving. Normal [facility] ED Pat Eduon 10-10-2017 ED Pat Edu [place] [address] [facility] Department Discharge Instructions JODI BOSTON , Please provide this information to your Primary Care/Specialist Name : JODI BOSTON Current Date : 10/10/2017 14:43:31DOB : 1995 12:00 PM Primary Care Physician: Physician, [place] PCP Diagnosis : Follow-Up Instructions:JODI BOSTON has been given these follow-up instructions: FOLLOW-UP APPOINTMENTS: Provider: Specialty: Address: Date: [facility] [address] [facility] [address] (3) Follow-up as needed Comment: This is [...] and Patient Education(s) : [employer] work release. ([id number]); Upper Respiratory Infection, Adult; Acute Bronchitis; Pharyngitis; Strep Throat; Sinusitis, Adult EMERGENCY SERVICES MEDICATION LISTLista de Medicaciones de los Servicios de Emergencia Name JODI BOSTON MRN ([facility])-[id number] PLEASE READ THE FOLLOWING REGARDING YOUR MEDICATIONS [...] doses are changed, or new medications (including osiy-dmj-npnnpfi products) are added. If you have any [...] TAKE UNTIL YOU TALK TO YOUR DOCTORNone [place] [address] [facility] Department Discharge Instructions Name: TEJ JODI Smith Current Date: 10/10/2017 14:43:31 : 1995 12:00 PM Primary Physician: Physician, No PCP We would like to thank you for choosing [facility] for your emergency medical needs. [...] health of those around you. Call the [place] [employer] at 2-652-IIXQ-USA or the [place] [employer] at 0-931-DHB-8975 for more information.High blood pressure: Your screening blood pressure today was 115 mm Hg / . Hypertension (high blood pressure) is blood pressure over 120/80. People with hypertension should contact their primary care provider within 30 days to follow up. Check your patient portal for additional blood pressure information.Immunizations:I mmunization is a way to protect against deadly infections. Discuss this with your child's disabilities services officer, or Public Health Department. Your family practice doctor can determine if you need pneumonia or flu vaccine. The [facility] Department can be reached at .Domestic [...] suicide hotline, anytime day or night, at 3-271-829-RGPW. Pharmacy Information:Below is a list of 24 hour pharmacies that we are aware of. We suggest that you call the specific pharmacy for their hours before traveling to a location. Hours may vary on holidays. [facility] [address] [address] [phone] [address] [phone] [place] [address] [phone] [address] [phone] [address] [phone] [address] [phone] [place] [address] [phone] Take all medications as directed. If you need prescription assistance, contact the following agencies:?? Partnership for Prescription Assistance at or www.pparx.org?? [facility] Best Rx at or www.Off Track Planetstrx.org?? www.CrowdlinkerRx.[facility] is a site with many valuable coupons Patient Education Materials JODI BOSTON has been given the following patient education materials: [facility] [address] [place] [id number]: [phone] Release FormThis notice verifies that your employee [...] Document Reviewed: 07/20/2012Xenaevcarli Interactive Patient Education ?2016 Buck Mason.ENTPharyngitisPharyngit is is redness, pain, and swelling (inflammation) [...] urine clear or pale yellow. ?Only take nyhf-lkn-cvbfjwt or prescription medicines as directed by your [...] Document Reviewed: 03/13/2014Prieto Interactive Patient Education ?2016 Buck Mason.Strep ThroatStrep throat is an infection of the [...] Document Reviewed: 10/29/2015Xenaevcarli Interactive Patient Education ?2016 Micello [facility].Emergency MedicineUpper Respiratory Infection, AdultMost upper respiratory [...] Document Reviewed: 10/11/2014Prieto Interactive Patient Education ?2016 Buck Mason.Acute BronchitisBronchitis is inflammation of the airways that [...] Document Reviewed: 12/27/2013Prieto Interactive Patient Education ?2016 [employer]><><><><><><><><><><>< ><><><><><><><><><><><><><> Patient Visit Summary Signature JODI BOSTON has been given the following list of patient education materials, prescriptions and follow-up instructions: TEJ Whitten MORGAN A, have received the above patient education materials/instructions and have verbalized understanding: Date Time Patient Signature Date Time Provider Signature Normal [facility] ED Physician Noteson 018 ED Physician Notes Patient: NORIS BOSTON MRN: [id number] Age: 22 years Sex: Female : 1995 Associated Diagnoses: None Author: Gabriel Hutchinson History of Present Illness I have introduced myself as the PA and informed the patient of the supervising/ collaborating physician who is available upon request. I have discussed the case with the ED physician who participated in the decisions regarding any therapeutic interventions. Physician: Dr. RadfordMekqsz24-eqth-tmt white female with history of heart murmur [...] congestion and mild cough. She used numerous xosi-lzf-vlxhpbf medications and thought that she was getting [...] Upper Respiratory Infection, Adult, [employer] work release. ([id number]). Follow up with: ; [facility] Within Follow-up as needed This [...] Chief Complaint-Triage Fever, Cough/ST, Congestion . Normal [facility] ED Physician Notes PDF Normal [facility] XR Chest 2 Viewson 8 XR Chest 2 views STUDY: Chest two vie ws dated 10/10/2017 1:59 PM.COMPARISON: None.HISTORY: Cough. Fever. 3 days of symptoms. Back pain. Smoking history.FINDINGS: The heart and mediastinum are not enlarged. Vasculature is not increased. No acute consolidation, effusion or pneumothorax is identified.IMPRESSION: No acute cardiopulmonary disease identified. Immediate final results were provided per protocol.[place] thanks you for the opportunity to care for your patient. Workstation ID: [id number] FINAL REPORT Dictated By: Marcos Dueñas MD 10/10/2017 14:01Assigned Physician: Marcos Dueñas MDReviewed and Electronically Signed By: Marcos Dueñas MD 10/10/2017 14:01Transcribed by: HELEN 10/10/2017 14:01Technologist: [facility] Normal [facility] BMPon 05-07-2017 Anion gap 3 molar conc 14 mmol/L Invalid Interpretation Code 10 - 20 mmol/L [facility] Calcium mass conc 9.0 mg/dL Invalid Interpretation Code 8.4 - 10.2 mg/dL [facility] Chloride molar conc 102 mmol/L Invalid Interpretation Code 98 - 108 mmol/L [facility] Creatinine mass conc 0.52 mg/dL Invalid Interpretation Code 0.4 - 1.1 mg/dL [facility] GFR/1.73 sq M predicted among non-blacks MDRD vol rate/area (S/P/Bld) The eGFR should be used for monitoring renal function only and not for medication dosing. Invalid Interpretation Code [facility] GFR/1.73 sq M.predicted CKD-EPI vol rate/area (S/P/Bld) 137 mL/min/1.73 m2 Invalid Interpretation Code >=60 [facility] Glucose mass conc 88 mg/dL Invalid Interpretation Code 65 - 99 mg/dL [facility] HCO3 molar conc 27 mmol/L Invalid Interpretation Code 21 - 32 mmol/L [facility] Potassium molar conc 3.7 mmol/L Invalid Interpretation Code 3.5 - 5.1 mmol/L [facility] Sodium molar conc 139 mmol/L Invalid Interpretation Code 135 - 145 mmol/L [facility] Urea nitrogen mass conc 13 mg/dL Invalid Interpretation Code 8 - 25 mg/dL [facility] Urea nitrogen/Creatinine mass ratio 25.0 mg/mg High 10.0 - 20.0 [facility] CBC Auto Differentialon 04-19 Basophils Auto #/vol (Bld) 0.02 K/mcL Invalid Interpretation Code 0.00 - 0.30 [facility] Basophils/100 WBC Auto (Bld) 0.3 % Invalid Interpretation Code [facility] Eosinophils Auto #/vol (Bld) 0.06 K/mcL Invalid Interpretation Code 0.00 - 0.50 [facility] Eosinophils/100 WBC Auto (Bld) 0.8 % Invalid Interpretation Code [facility] Erythrocyte distribution width Auto Entitic volume (RBC) 18.4 % High 11.6 - 14.8 % [facility] Hematocrit Auto Volume Fraction (Bld) 36.9 % Invalid Interpretation Code 36 - 46 % [facility] Hemoglobin mass conc (Bld) 11.4 g/dL Low 12 - 16 g/dL [facility] Immature granulocytes #/vol (Bld) 0.02 K/mcL Invalid Interpretation Code 0.00 - 0.30 [facility] Immature granulocytes/100 WBC (Bld) 0.30 % Invalid Interpretation Code [facility] Comment on above: The IG parameter is the percentage of metamyelocytes, myelocytes, and promyelocytes. Lymphocytes Auto #/vol (Bld) 2.18 K/mcL Invalid Interpretation Code 0.90 - 4.00 [facility] Lymphocytes/100 WBC Auto (Bld) 28.3 % Invalid Interpretation Code [facility] MCH Auto Entitic mass (RBC) 24.6 pg Low 26 - 34 pg [facility] MCHC Auto mass conc (RBC) 30.9 g/dL Low 31 - 37 g/dL [facility] MCV Auto Entitic volume (RBC) 79.7 fL Low 80 - 100 fL [facility] Monocytes Auto #/vol (Bld) 0.56 K/mcL Invalid Interpretation Code 0.30 - 0.90 [facility] Monocytes/100 WBC Auto (Bld) 7.3 % Invalid Interpretation Code [facility] Neutrophils Auto #/vol (Bld) 4.85 K/mcL Invalid Interpretation Code 1.70 - 7.00 [facility] Neutrophils/100 WBC Auto (Bld) 63.0 % Invalid Interpretation Code [facility] Nucleated RBC #/vol (Bld) 0.00 K/mcL Invalid Interpretation Code 0.00 - 0.00 [facility] Nucleated RBC/100 WBC Ratio (Bld) 0.0 % Invalid Interpretation Code [facility] Platelet mean volume Auto Entitic volume (Bld) 11.3 fL Invalid Interpretation Code 9 - 15.5 fL [facility] Platelets Auto #/vol (Bld) 277 K/mcL Invalid Interpretation Code 150 - 400 [facility] RBC Auto #/vol (Bld) 4.63 M/mcL Invalid Interpretation Code 4.00 - 5.20 [facility] WBC Auto #/vol (Bld) 7.69 K/mcL Invalid Interpretation Code 4.50 - 11.00 [facility] CBC w/ Diffon 05-07-2017 CBC w/ Diff The following orders were created for panel order CBC w/ Diff. Procedure Abnormality Status --------- ------ CBC Auto Differential[[id number]] Abnormal Final result Please view results for these tests on the individual orders. Invalid Interpretation Code [place] Work Phone: Gold Topon 05-07-2017 Extra Tube Hold for add-ons. Invalid Interpretation Code [facility] Comment on above: Auto resulted. [place] Drawon 05-07-2017 [place] Draw The following orders were created for panel order [place] Draw. Procedure Abnormality Status --------- ------ Gold Top[[id number]] Final result Light Blue Top[[id number]] Final result [place] Top[[id number]] Final result [place] Top[[id number]] Final result Please view results for these tests on the individual orders. Invalid Interpretation Code [facility] Work Phone: Urinalysison 05-07-2017 Bacteria Auto Ql (U) None Seen Invalid Interpretation Code None Seen /hpf [facility] Bilirubin Ql (U) Negative Invalid Interpretation Code Negative [facility] Clarity Refractometry automated Nom (U) Clear Invalid Interpretation Code Clear [facility] Color Auto Nom (U) Yellow Invalid Interpretation Code Colorless, Yellow [facility] Epithelial cells.squamous Auto #/area (Urine sed) <1 Invalid Interpretation Code 0 - 4 /hpf [facility] Glucose Automated test strip mass conc (U) Negative Invalid Interpretation Code Negative mg/dL [facility] Hemoglobin Automated test strip Ql (U) Negative Invalid Interpretation Code Negative [facility] Interpretation and review of laboratory results Abnormal Invalid Interpretation Code [facility] Ketones mass conc (U) Negative Invalid Interpretation Code Negative mg/dL [facility] Leukocyte esterase Automated test strip Ql (U) Negative Invalid Interpretation Code Negative [facility] Mucus Auto #/area (Urine sed) Few Abnormal None Seen, Rare /lpf [facility] Nitrite Automated test strip Ql (U) Negative Invalid Interpretation Code Negative [facility] pH Test strip (U) 6.0 [pH] Invalid Interpretation Code 5.0 - 7.0 [facility] Protein mass conc (U) 30 Abnormal Negative mg/dL [facility] Comment on above: False positive resul ts may occur in urines with large amounts of hemoglobin, pH greater than 8.0, contrast medium, or disinfectants including ammonium compounds. Specific gravity Automated test strip Relative Density (U) 1.021 1 Invalid Interpretation Code 1.005 - 1.025 [facility] Urobilinogen Test strip Qn (U) <2.0 Invalid Interpretation Code <2.0 mg/dL [facility] WBC Auto #/area (Urine sed) 1 /hpf Invalid Interpretation Code 0 - 5 [facility] Urinalysis Microscopic examinat ion is performed on all urinalysis samples and only positive findings are reported. The test for blood on the chemical analytic portion of urinalysis may also be positive due to hemoglobinuria and myoglobinuria and if red blood cells are present they are quantified by microscopic examination. Invalid Interpretation Code [facility] Urine Pregnancyon 05-07-2017 HCG ( test) Ql (U) Negative Invalid Interpretation Code Negative [facility] Interpretation and review of laboratory results Normal Invalid Interpretation Code [facility] Vital Signs Date Time Vital Sign Value Performing Clinician Facility 12-27-2017 11:36-0400 BMI (Body Mass Index) 23.64 kg/m2 [facility] 12-27-2017 11:36-0400 Body Temperature 98.29 [degF] [facility] 12-27-2017 11:36-0400 BP Diastolic 83 mm[Hg] [facility] 12-27-2017 11:36-0400 BP Systolic 121 mm[Hg] [facility] 12-27-2017 11:36-0400 Height 162.6 cm [facility] 12-27-2017 11:36-0400 Pulse (Heart Rate) 84 /min [facility] 12-27-2017 11:36-0400 Pulse Oximetry 97 % [facility] 12-27-2017 11:36-0400 Respiratory Rate 12 /min [facility] 12-27-2017 11:36-0400 Weight 62.46 kg [facility] 05-08-2017 13:44-0400 BP Diastolic 71 mm[Hg] Solis French [facility] Work Phone: 05-08-2017 13:44-0400 BP Systolic 118 mm[Hg] Solis French [facility] Work Phone: 05-08-2017 13:44-0400 Pulse (Heart Rate) 68 /min Solis French [facility] Work Phone: 05-08-2017 13:44-0400 Pulse Oximetry 99 % [facility] Work [facility]: 05-08-2017 13:44-0400 Respiratory Rate 18 /min Solismallika French [facility] Work Phone: 05-08-2017 10:49-0400 BMI (Body Mass Index) 23.17 kg/m2 [facility] Work Phone: 05-08-2017 10:49-0400 Body Temperature 98.29 [degF] [facility]is [facility] Work Phone: 05-08-2017 10:49-0400 Height 162.6 cm [facility]is [facility] [place] Work Phone: 05-08-2017 10:49-0400 Weight 61.24 kg Solis French [facility] [place] Work Phone: 05-07-2017 19:00-0400 BP Diastolic 62 mm[Hg] Henri Pulliam [employer] Work Phone: 05-07-2017 19:00-0400 BP Systolic 108 mm[Hg] Henri Pulliam [facility] [place] Work Phone: 05-07-2017 19:00-0400 Pulse (Heart Rate) 63 /min Henri Pulliam [facility] [place] Work Phone: 05-07-2017 19:00-0400 Respiratory Rate 16 /min Henri Pulliam [employer] Work Phone: 05-07-2017 16:14-0400 BMI (Body Mass Index) 22.86 kg/m2 Henri Pulliam [facility] Work Phone: 05-07-2017 16:14-0400 Body Temperature 98.8 [degF] Henri Pulliam [facility] Work Phone: 05-07-2017 16:14-0400 Height 162.6 cm Henri Pulliam [facility] [place] Work Phone: 05-07-2017 16:14-0400 Pulse Oximetry 100 % Henri Pulliam [employer] Work Phone: 05-07-2017 16:14-0400 Weight 60.42 kg Henri Pulliam [facility] [place] Work Phone: Encounters Encounter Date Encounter Type Care Provider Facility Start: 08-28-2023 Clinisync Result Encounter Jeri GARRETT Work Phone: [facility] Unsolicited Start: 08-28-2023 Clinisync Result Encounter Jeri GARRETT Work Phone: [facility] Unsolicited Start: 07-09-2021 End: 07-12-2021 ambulatory D[facility] Start: 12-27-2017 End: 12-27-2017 Ambulatory ROXANE SIMS [facility] Start: 12-27-2017 End: 12-27-2017 Office/outpatient visit, est, level 3 Mari Ham Work Phone: [facility] [address] Start: 11-21-2017 End: 11-21-2017 Emergency department patient visit No PCP Physician Facility:[facility] Start: 10-10-2017 End: 10-10-2017 Emergency department patient visit No PCP Physician Facility:[facility] Start: 05-08-2017 End: 05-08-2017 Emergency department patient visit ROXANE SIMS [facility] Start: 05-08-2017 End: 05-08-2017 Emergency department patient visit Solis French Work Phone: [facility] Department Comment on above: Trapezius muscle spa sm (Primary Dx) Start: 05-07-2017 End: 05-07-2017 [facility] Start: 05-07-2017 End: 05-07-2017 Emergency department patient visit Henir French [facility] Work Phone: [facility] Department Comment on above: Nonintractable heada cheryle, unspecified chronicity pattern, unspecified headache type (Primary Dx) Procedures Date Procedure Procedure Detail Performing Clinician Start: 08-28-2023 ALL CBC WITH AUTO DIFF Jeri GARRETT Work Phone: Plan of Treatment Date Care Activity Detail Author Start: 08-31-2023 End: 08-31-2023 Patient encounter procedure 08/31/2023 4:00 PM EST Routine [facility] [address] [place] [id number] Timothy Bourgeois, DO [address] [place] [address] Third trimester [facility] Comment on above: Third trimester preg dinora Start: 03-20-2023 Influenza vaccination Influenz a Vaccine (#1) [facility] Start: 03-20-2018 Influenza vaccination SEQUENTI AL INFLUENZA VACCINE (Season Ended) [facility] Start: 03-20-2017 Influenza vaccination SEQUENTI AL INFLUENZA VACCINE (#1) [facility] Work Phone: Start: 2007 Vaccination for luciana n papillomavirus HPV VACCINES (1 of 3 - Female 3 Dose Series) [facility] Work Phone: Start: 1996 Adult depression screening assessment DEPRESSION SCREENING (PHQ9) [facility] Start: 1996 Screening for malign ant neoplasm of cervix PAP SMEAR [facility] Work Phone: Start: 1995 SUBSTANCE ABUSE SCRE ENING (AUDIT-C) SUBSTANCE ABUSE SCREENING (AUDIT-C) [facility] Start: 1996 Tetanus vaccination TETANUS EVERY 10 YR [facility] Work Phone: Streptococcus pyogen es [Presence] in Throat by Organism specific culture Strep A Culture, Throat Routine Sore throat Ordered: 12/27/2017 [facility] Immunizations Immunization Date Immunization Notes Care Provider Mateo francisco 05-08-2016 influenza, seasonal, injectable Henri Pulliam [facility] Work Phone: 05-08-2016 influenza virus vaccine, unspecified formulation Jeri GARRETT Work Phone: [facility] Payers Date Payer Category Payer Unknown [id number] 2017 Unknown [id number] 2016 Unknown Social History Date Type Detail Facility Start: 12-27-2017 [facility] History of tobacco use Cigarette Smoker [facility] Work Phone: Start: 12-27-2017 Cigarettes smoked current (pack per day) - Reported [facility] Sex Assigned At Not on file [facility] Work Phone: Start: 05-07-2017 End: 05-08-2017 Tobacco smoking status ALIS Former smoker [facility] Work Phone: Tobacco smoking stat [facility] Tobacco smoking consumption unknown [facility] Start: 02-17-2023 [facility] Start: 1995 Sex Assigned At Female [facility] Start: 04-02-2023 Gender identity Identifies as female gender (finding) [facility] Start: 04-02-2023 Sexual orientation Bisexual (finding ) [facility] Instructions * Patient Instructions - Mari [...] 1 cup of warm water. Take an efir-vju-udrzszr pain medicine, such as acetaminophen (Tylenol), ibuprofen (Advil, Motrin),or naproxen (Aleve). Read and follow all instructions on the label. Be careful when taking bprq-ijp-ionoyuu cold or flu medicines and Tylenol at [...] soup, may help decrease throat pain. Use riuf-ubv-defclva throat lozenges to soothe pain. Regular cough [...] Log into your personal health record on [email or web address]://[email or web address] and enter U420 in the Education box to learn more about Sore Throat: Care Instructions. Current as of: November 28, 2016 Content Version: .20051401-5016 5minutes. Care instructions adapted under license by your healthcare professional. If you have questions about a medical condition or this instruction, always ask your healthcare professional. [employer] disclaims any warranty or liability for your [...] rest if you feel tired. Take an uspn-gyf-ovogfoh pain medicine if needed, such as acetaminophen (Tylenol), ibuprofen (Advil, Motrin), or naproxen (Aleve). Read and follow all instructions on the label. Be careful when taking wlus-gem-gcjdnoy cold or flu medicines and Tylenol at [...] Log into your personal health record on [email or web address]://[email or web address] and enter L906 in the Education box to learn more about Viral Infections: Care Instructions. Current as of: June 06, 2017 Content Version: .[id number] 5minutes. Care instructions adapted under license by your healthcare professional. If you have questions about a medical condition or this instruction, always ask your healthcare professional. [employer] disclaims any warranty or liability for your [...] your doctor if you can take an aznd-ydy-mhyvoyx medicine. Be careful not to take pain [...] Log into your personal health record on [email or web address]://[email or web address] and enter M271 in the Education box to learn more about Headache: Care Instructions. Current as of: May 02, 2016 Content Version: 11.2 8178-8783 5minutes. Care instructions adapted under license by your healthcare professional. If you have questions about a medical condition or this instruction, always ask your healthcare professional. [employer] disclaims any warranty or liability for your use of this information. in this encounter Additional Source Comments INFORMATION SOURCE (unrecogn ized section and content) DATE CREATED AUTHOR 01/05/2018 [facility] DATE CREATED AUTHOR AUTHOR'S ORGANIZ ATION 01/12/2018 [facility] DATE CREATED AUTHOR AUTHOR'S ORGANIZ ATION 02/02/2018 [facility] DATE CREATED AUTHOR AUTHOR'S ORGANIZ ATION 07/12/2021 [facility] Reason for Visit (unrecogniz ed section [...] the patient. I discussed the patient with FARM OPERATOR/PA. I agree with the FARM OPERATOR/PA treatment plan. I agree with the FARM OPERATOR/PA plan of care. I agree with the FARM OPERATOR/PA dispo as documented. The patient has been [...] Procedure Abnormality Status --------- ------ CBC Auto Differential[[id number]] Abnormal Final result Please view results for these tests on the individual orders. RAINBOW DRAW Narrative: The following orders were created for panel order [place] Draw. Procedure Abnormality Status --------- ------ Gold Top[[id number]] In process Light Blue Top[[id number]] In process [place] Top[[id number]] In process [place] Top[[id number]] In process Please view results for these [...] note may be different from the original. [facility] ED Resident Note: NAME: Jodi Boston 22 y.o. CSN: [id number] PCP: Roxane Singleton DO History: Chief Complaint: Migraine HPI: The [...] PMSx: Past Surgical History: Procedure Laterality Date Stone Rigger WISDOM TOOTH EXTRACTION FAM. 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 RAINBOW DRAW Narrative: The following orders were created for panel order [place] Draw. Procedure Abnormality Status --------- ------ Gold Top[[id number]] In process Light Blue Top[[id number]] In process [place] Top[[id number]] In process [place] Top[[id number]] In process Please view results for these [...] file Alyssa Tellez DO ED Resident Physician [facility] Emergency Department (Please note that portions of this note have been completed with a voice recognition software. Efforts were made to correct any errors, but occasionally words are mis-transcribed.) Alyssa Tellez DO Resident 05/07/17 1745 SECONDARY ASSESSMENT - Breathing regular and unlabored, [...] wall movement. Circulation: Skin warm and dry, WATER FILTERER HELPER < 3 seconds, 2+ Bilateral radial pulses. [...] to the room to provide pt with DC/branch office administrator/care instructions. Pt verbalizes understanding with no further concerns at this time. This RN to the room to provide pt with Ice to apply to the back of her neck for comfort measures. Formatting of this note may be different from the original. 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 All imaging has been read by a Radiologist. Eleno Thao PA-C 05/08/17 131 Pt presents to the ED c/o of severe neck pain. Pt was tx at [facility] yesterday for migraine at which time her [...] night, pt was seen in ED at [facility] yesterday treated for migraine headache, denies headache [...] BE BASED ON THE PRIMARY CLINICAL RECORDS. [facility]. provides no warranty or guarantee of the accuracy or completeness of information in this document.
--- NOTE | 2024-02-08 10:22 | PC.NURSE ---
marbin and Oliverio arrive for support. Marbin is very tearful today. Relates that feedings are worse, baby resists latching during the day. Baby latches and feeds well at night but not during the day. Mom admits to struggling with other factors as well. 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 Pt pumps to ensure milk available when he won't go to breast. Talks about Mom rage directed at self, partner and employment. States goes to therapy, but not really helping as partner not understanding needs at this time. Encouraged to make appointment and speak with Dr Bourgeois or Donato. Pt states will call today. Mom referred to Patrica Bailey INDUSTRIAL RELATIONS REPRESENTATIVE and Olimpia Layton CABLE REPAIRER for further assistance with suck skills and stretches for baby. Pt less tearful, states and to top everything else I started my period this morning Reviewed hormone fluctuations impacting emotional states and verbalized agreement I just feel like a hot mess. Pt does not admit to threat to self, children or to others. No plans to hurt self or others noted. Encouraged to ofefr breast to Oliverio when sleepy, relaxed and not stressed about feeding. Will continue as planned and will let LC know if needs additional support.
== END 2024-02-08 10:25 | disposition home or self-care (01) ==
LOC: FBCO 08:26
PROVIDERS: Visit Provider Obstetrics & Gynecology
DX: Z39.1 Encounter for care and examination of lactating mother (principal)

== ENCOUNTER 2024-02-29 08:30 | Outpatient (OUT) | payer OTHER, SELFPAY | END 2024-02-29 10:04 | disposition home or self-care (01) | LOC: FBCO 08:31 | PROVIDERS: Visit Provider Obstetrics & Gynecology | DX: Z39.1 Encounter for care and examination of lactating mother (principal) | CPT/HCPCS: G0463 ==

== ENCOUNTER 2024-03-29 14:37 | Outpatient (OUT) | payer OTHER, SELFPAY ==
--- NOTE | 2024-03-29 14:39 | US_ITS ---
The [address] [address] Patient Name: JODI BURNHAM MRN: [id number] date: 1995 Sex: F Assigned Patient Location: [facility] Current Patient Location: Accession/Order Number: [id number] Exam Date: 03/29/2024 14:39 Report Date: 03/30/2024 16:24 At the request of: JANKI STOREY Procedure: US pelvis w/ transvaginal EXAMINATION: US pelvis w/ transvaginal HISTORY: MENORRHAGIA COMPARISON: No relevant comparison available. FINDINGS: Transabdominal and transvaginal images The uterus is normal in size, contour and echotexture measuring 8.6 x 3.4 x 5.3 cm, anteverted, anteflexed. No focal myometrial mass The endometrium measures 7 mm, normal The right ovary is normal measuring 3.3 x 2.2 x 3.2 cm. Normal color and Doppler flow. The left ovary is normal measuring 2.3 x 1.8 x 1.7 cm. Normal color and Doppler flow US/US pelvis w/ transvaginal IMPRESSION: Normal exam Electronically authenticated by: ALEJANDRA CARR Date: 03/30/2024 16:24
--- OUTSIDE RECORDS SUMMARY | 2024-03-29 14:54 | XMS_ITS | CCD ---
Author Organization [facility] Care Team Providers Care Wreath Machine Tender Name Role Phone Ramos Roxane Sims Unavailable [phone] RAMOS ROXANE DWYERECCA Unavailable Unavail able MARI [...] Propensity to adverse reactions 08-26-19 19 Rash [facility] Work Phone: (1 source) Prochlorperazine Drug Allergy 05-07-20 18 [facility] Medications Current Medications Medication Drug Class(es) [...] for constipation 30 capsule 5 08/05/2023 Active [id number] 0.3 ml EPINEPHrine 1 mg/ml auto-injector (4 [...] parts viscous lidocaine 2%, diphenhydramine 12.5mg/5mL, maalox 029fp-544ke-83mh/5mL (1 source) Start: 018 End: 018 magic mouthwash susp equal parts viscous lidocaine 2%, diphenhydramine 12.5mg/5mL, maalox 277fk-798cl-32xe/5mL Swish and spit 5 mL every 6 [...] morning. 360 capsule 0 08/05/2023 08/04/2024 Active Wqhawe-LcNvy-YvJvk-FA-C [place] (Complete DHA) 29-1-200 & 200 MG misc (1 source) Start: 023 Ilxyaw-VjUjz-RlKpj-FA- [place] (Complete DHA) 29-1-200 & 200 MG misc [...] WITH AUTO DIFFon BASOPHILS ABSOLUTE AUTO 0.0 [facility] Basophils/100 WBC (Bld) 0.1 % Low 0.2 - 2.0 % [facility] Eosinophils/100 WBC (Bld) 0.4 % Low 0.9 - 7.0 % [facility] Erythrocyte distribution width (RBC) [Ratio] 13.4 % 11.0 - 15.0 % [facility] Hematocrit (Bld) [Volume fraction] 29.5 % Low 36.0 - 48.0 % [facility] Hemoglobin (Bld) [Mass/Vol] 9.2 g/dL Low 12.0 - 16.0 g/dL [facility] IMMATURE GRANULOCYTES ABS AUTO 0.08 High [facility] Immature granulocytes/100 WBC (Bld) 0.8 % High 0.0 - 0.5 % [facility] Interpretation and review of laboratory results Abnormal [facility] LYMPHOCYTES ABSOLUTE AUTO 1.8 [facility] Lymphocytes/100 WBC (Bld) 19.1 % Low 20.5 - 60.0 % [facility] MCH (RBC) [Entitic mass] 26.5 pg Low 26.7 - 34.0 pg [facility] MCHC (RBC) [Mass/Vol] 31.2 g/dL 29.9 - 35.2 g/dL [facility] MCV (RBC) [Entitic vol] 85.0 fL 81.0 - 99.0 fL [facility] MONOCYTES ABSOLUTE AUTO 0.8 [facility] Monocytes/100 WBC (Bld) 8.0 % 1.7 - 12.0 % [facility] NEUTROPHILS ABSOLUTE AUTO 6.9 High [facility] Neutrophils/100 WBC (Bld) 71.6 % 43.0 - 75.0 % [facility] Platelet mean volume (Bld) [Entitic vol] 10.5 fL 9.5 - 13.5 fL [facility] EO # 0.0 [facility] TB PLT 192 [facility] RBC 3.47 Low [facility] WBC 9.6 [facility] XR CHEST (2 VW)on [...] Hamzah Kaba MD 07/09/21 Final result Normal [facility] POC Rapid Strep Aon 12-28-19 Interpretation and review of laboratory results Normal Invalid Interpretation Code [facility] Streptococcus pyogenes antigen presence Negative Invalid Interpretation Code Negative [facility] Basic Metabolic Panelon 05-0 Anion gap 8.0 mmol/L Normal 6.0-18.0 [facility] Comment on above: Result Comment: PLEA SE NOTE:The calculated Anion Gap(AGAP) does not include Potassium. Performed By: #### 6 9405-9, 38877-6b6, 3040-3, 37320-9, 19590-1 ####[facility], [address], [place]. Calcium 9.3 mg/dL Normal 8.9-10.3 [facility] Comment on above: Performed By: #### 6 9405-9, 98350-2h8, 3040-3, 51908-3, 26929- 3 ####[facility], [address]. Chloride 106 mmol/L Normal 98-107 [facility] Comment on above: Performed By: #### 6 9405-9, 72772-3y6, 3040-3, 76287-9, 08866- 3 ####[facility], [address] [place], [place]. CO2 25 mmol/L Normal 22-32 [facility] Comment on above: Performed By: #### 6 9405-9, 13277-7c8, 3040-3, 48162-8, 95094- 3 ####[facility], [address] [place], [place]. Creatinine 0.65 mg/dL Low 0.66-1.30 [facility] Comment on above: Performed By: #### 6 9405-9, 68281-9v2, 3040-3, 16727-7, 71679- 3 ####[facility], [address] [place]. Glucose mass conc 88 mg/dL Normal 70-110 [facility] Comment on above: Performed By: #### 6 9405-9, 25940-0u3, 3040-3, 91831-9, 95145- 3 ####[facility], [address] [place], [place]. Potassium molar conc 3.5 mmol/L Low 3.6-5.1 [facility] Comment on above: Performed By: #### 6 9405-9, 19001-0a3, 3040-3, 15958-1, 70556- 3 ####[facility], [address], [place]. Sodium 139 mmol/L Normal 136-145 [facility] Comment on above: Performed By: #### 6 9405-9, 21365-4u7, 3040-3, 24648-9, 53169- 3 ####[facility], [address]. Urea nitrogen mass conc (BldV) 10 mg/dL Normal 8-20 [facility] Comment on above: Performed By: #### 6 9405-9, 27941-6f4, 3040-3, 06595-2, 82161- 3 ####[facility], [address] CBCon 11-21-2017 Erythrocyte distribution width Entitic volume (RBC) 20.1 % High 11.0-14.8 [facility] Comment on above: Performed By: #### 2 7-0 ####[facility], [address] [place], [place] [address], [place]. Erythrocytes (RBC) 4.57 million/mcL Normal 3.80-5.10 [facility] Comment on above: Performed By: #### 2 7-0 ####[facility], [address] [place] [address]. Hematocrit (HCT) 34.8 % Low 35.0-45.0 [facility] Comment on above: Performed By: #### 2 7-0 ####[facility], [facility]. Hemoglobin mass conc (Bld) 11.3 g/dL Low 12.0-16.0 [facility] Comment on above: Performed By: #### 2 7-0 ####[facility], [address]. MCH 24.8 Picograms Low 27.0-34.0 [facility] Comment on above: Performed By: #### 2 4317-0 ####[facility], [address]. MCHC mass conc (RBC) 32.6 g/dL Normal 32.0-36.0 [facility] Comment on above: Performed By: #### 2 7-0 ####[facility], [address] [place], [place]. MCV 76.1 fL Low 80.0-97.0 [facility] Comment on above: Performed By: #### 2 4317-0 ####[facility], [address]. Platelet mean volume Entitic volume (Bld) 8.9 FL Normal 6.2-12.1 [facility] Comment on above: Performed By: #### 2 4317-0 ####[facility], [address] [place], [place]. Platelets 251 thou/mcL Normal 142-424 [facility] Comment on above: Performed By: #### 2 4317-0 ####[facility], [address]. WBC (Leukocytes) 6.4 thou/mcL Normal 4.6-10.2 [facility] Comment on above: Performed By: #### 2 4317-0 ####[facility], [address], [place]. CT Abd and Pelvis w Contrast [...] emergency department following dictation on 11/21/2017 3:41 AM.[facility] thanks you for the opportunity to care for your patient. Workstation ID: [id number] FINAL REPORT Dictated By: Pérez Queen MD 11/21/2017 03:38Assigned Physician: Pérez Queen MDReviewed and Electronically Signed By: Pérez Queen MD 11/21/2017 03:42Transcribed by: HELEN 11/21/2017 03:38Technologist: [facility] Normal [facility] Culture Urine + Susceptibili tyon 11-21-2017 Urine culture, bacteria [facility] MicrobiologyPROCEDURE: Culture Urine + SusceptibilitySOURCE: Urine BODY SITE:COLLECTED DATE/TIME: 11/21/2017 01:41 EDT RECEIVED DATE/TIME: 11/21/2017 01:41 EDTSTART DATE/TIME: 11/21/2017 01:41 EDT FREE TEXT SOURCE: URINEINTERFACED REPORTSFinal Report []Verified Date/Time/Personnel: 11/22/2017 12:17 EDT CONTRIBUTOR_SYSTEM, CO_PNORGANISMS USUALLY ASSOCIATED WITH VAGINAL,URETHRAL,AND/OR SKIN CONTAMINATION PRESENT. [facility] Comment on above: Performed By: #### 5 8077-9, 88997-4 ####[facility], [address] [place], [place].#### 630-4 ####[facility] [address] [place], [place] Depart Summaryon 11-21-2017 Depart Summary EMERGENCY DEPARTMENT DISCHARGE SUMMARYPATIENT NAME:JODI BOSTON MRN: (COL)-[id number]: 22 Years SEX: Female PHONE:[phone]: 11/20/2017 10:57 PM : 1995 ATTENDING PHYSICIAN:Ernestine Mckeon MD PCP: Physician, No PCP CHIEF COMPLAINT: abdominal pain Allergies Compazine (Anger)Problems Active No Chronic Problems DISCHARGE DIAGNOSIS: DISCHARGE INSTRUCTIONS: Work Release (CO-S) (CUSTOM); Abdominal Pain, Adult ED PHYSICIAN DOCUMENTATION: History of Present Luzjzrw91-krki-ccq female with no significant medical history presents [...] Result(s): Date Order Results 11/20/2017 23:06 Specific [place] Urine POCT N 1.030 11/20/2017 23:06 pH Urine POCT N 5 11/20/2017 23:06 Urobilinogen Urine POCT N 0 mg/dL 11/21/2017 01:41 Appearance Urine A TURBID 11/21/2017 01:41 Specific [place] Urine H 1.032 11/21/2017 01:41 Blood Urine [...] emergency department following dictation on 11/21/2017 3:41 AM.[facility] thanks you for the opportunity to care [...] any generalized worsening of your condition. Normal [facility] ED Beth Jacome 11-21-2017 ED [address], [place] [address] [facility] Discharge Instructions JODI BOSTON , [...] Servicios de Emergencia Name JODI BOSTON MRN (COL)-[id number] PLEASE READ THE FOLLOWING REGARDING YOUR MEDICATIONS [...] doses are changed, or new medications (including yxnq-npt-shqjrer products) are added. If you have any [...] TAKE UNTIL YOU TALK TO YOUR DOCTORNone [facility] [address] [address] Emergency Department Discharge Instructions Name: JODI BOSTON Current Date: 11/21/2017 03:50:01 : 1995 12:00 PM Primary Physician: Physician, No PCP We would like to thank you for choosing [facility] for your emergency medical needs. We [...] health of those around you. Call the [employer] at 9-613-NQML-[facility] or the [employer] at 5-388-SAQ-8153 for more information.High blood pressure: Your screening blood pressure today was 108 mm Hg / . Hypertension (high blood pressure) is blood pressure over 120/80. People with hypertension should contact their primary care provider within 30 days to follow up. Check your patient portal for additional blood pressure information.Immunizations:I mmunization is a way to protect against deadly infections. Discuss this with your child's jewelry sales associate, or Public Health Department. Your family practice doctor can determine if you need pneumonia or flu vaccine. The [facility] can be reached at .Domestic Violence:If [...] suicide hotline, anytime day or night, at 8-433-006-UANA. Pharmacy Information:Below is a list of 24 hour pharmacies that we are aware of. We suggest that you call the specific pharmacy for their hours before traveling to a location. Hours may vary on holidays. [facility] [address] [place] [address] [phone] [address] [phone] [place] [address] [phone] [place] [address] [phone] [place] [address] [phone] [place] [address] [phone] [place] [address] [phone] Take all medications as directed. If you need prescription assistance, contact the following agencies:?? Partnership for Prescription Assistance at or www.[employer]x.org?? [facility] Best Rx at or www.Kids360rx.Justinmind?? [employer] is a site with many valuable coupons [...] alleviate any discomfort you are experiencing:???Only take wvpb-gou-owgtrus or prescription medicines as directed by your [...] Document Reviewed: 03/15/2014[employer] Patient Education ?2016 [employer]><><><><><><><><><><>< ><><><><><><><><><><><>< ><> Patient Visit Summary Signature JODI BOSTON has been given the following list of patient education materials, prescriptions and follow-up instructions: TEJ Whitten MORGAN A, have received the above patient education materials/instructions and have verbalized understanding: Date Time Patient Signature Date Time Provider Signature Normal [facility] ED Physician Noteson 018 ED Physician Notes [...] chronic problems Historical No qualifying dataProcedure/Surgical History [place] tooth.Medications Home No active home medications ED [...] department following dictation on 11/21/2017 3:41 AM. [facility] thanks you for the opportunity to care [...] MD November 21, 2017 00:59 Completed Normal [facility] ED Physician Notes PDF Normal [facility] GFRaaon 11-21-2017 eGFR (black) mL/min/{1.73_m2} Normal [facility] Comment on above: Result Comment: The MDRD equation has not been validated for those over 70 years, women, patients with serious co-morbid conditions, or with extremes of bodysize, muscle mass of nutritional status. Performed By: #### 6 9405-9, 13864-9m6, 3040-3, 04086-6, 51082-1 ####[facility], [address] [place] [address]. GFRbbon 11-21-2017 eGFR (non-black) mL/min/{1.73_m2} Normal [facility] Comment on above: Performed By: #### 6 9405-9, 48161-5i9, 3040-3, 62196-7, 75475- 3 ####[facility], [address]. Hepatic Function Panelon Alanine aminotransferase (ALT) 15 Units/L Normal 14-63 [facility] Comment on above: Performed By: #### 6 9405-9, 30067-9a9, 3040-3, 63046-9, 81047- 3 ####[facility], [address] [place]. Albumin 4.2 g/dL Normal 3.5-4.8 [facility] Comment on above: Performed By: #### 6 9405-9, 32299-7v5, 3040-3, 09777-6, 66837- 3 ####[facility], [address] [place], [place]. Alkaline phosphatase (ALP) 36 Units/L Normal 32-91 [facility] Comment on above: Performed By: #### 6 9405-9, 56168-2n2, 3040-3, 55619-7, 89576- 3 ####[facility], [address] [place]. Aspartate aminotransferase (AST) 19 Units/L Normal 15-41 [facility] Comment on above: Performed By: #### 6 9405-9, 86458-7p7, 3040-3, 40346-6, 21207- 3 ####[facility], [address] [place], [place]. Bilirubin (direct) 0.1 mg/dL Normal 0.1-0.5 [facility] Comment on above: Performed By: #### 6 9405-9, 85669-9v3, 3040-3, 91691-7, 20166- 3 ####[facility], [address] [place], [place]. Bilirubin (total) 0.6 mg/dL Normal 0.3-1.2 [facility] Comment on above: Performed By: #### 6 9405-9, 78829-3g9, 3040-3, 55145-0, 12245- 3 ####[facility], [address]. Bilirubin.indirect mass conc 0.5 mg/dL Normal 0.0-1.0 [facility] Comment on above: Performed By: #### 6 9405-9, 60097-0x7, 3040-3, 00201-0, 06059- 3 ####[facility], [address]. Protein 6.9 g/dL Normal 6.1-7.9 [facility] Comment on above: Performed By: #### 6 9405-9, 28681-7j4, 3040-3, 16951-1, 93048- 3 ####[facility], [address] [place], [place]. Lipaseon 11-21-2017 Lipase 21 Units/L Low 22-51 [facility] Comment on above: Performed By: #### 6 9405-9, 00053-4j2, 3040-3, 74802-3, 88299- 3 ####[facility], [address]. Urinalysis Microscopicon Urine, amorphous crystals presence in sediment FEW Abnormal NONE/HPF [facility] Comment on above: Performed By: #### 5 8077-9, 46958-8 ####[facility], [address].#### 630-4 ####[facility] [address], [place] Urine, bacteria in sediment FEW Abnormal NONE/HPF [facility] Comment on above: Performed By: #### 5 8077-9, 46742-7 ####[facility], [address], [place].#### 630-4 ####[facility] [address] [place], [place] Urine, erythrocytes in sediment by area 6 /[HPF] High 0-5 [facility] Comment on above: Performed By: #### 5 8077-9, 78856-7 ####[facility], [address] [place] [address].#### 630-4 ####[place] [address] [place], [place] Urine, mucus presence in sediment MANY Abnormal NONE/LPF [facility] Comment on above: Performed By: #### 5 8077-9, 33161-7 ####[facility], [address] [place] [address].#### 630-4 ####[address] Urine, squamous cells in sediment MANY Abnormal FEW/LPF [facility] Comment on above: Performed By: #### 5 8077-9, 17909-3 ####[facility], [address] [place] [address].#### 630-4 ####[address] WBC Urine 6 /hpf High 0-5 [facility] Comment on above: Performed By: #### 5 8077-9, 13480-2 ####[facility], [address] [place] [address].#### 630-4 ####[place] [address] [place], [place] Urinalysis with Microscopic Automatic with Reflexon 11-21-2017 Bilirubin Test strip mass conc (U) Negative Normal NEGATIVE [facility] Comment on above: Performed By: #### 5 8077-9, 60056-3 ####[facility], [address] [place] [address].#### 630-4 ####[place] [address] [place], [place] Glucose Test strip mass conc (U) NORMAL Normal NORMAL [facility] Comment on above: Performed By: #### 5 8077-9, 59890-9 ####[facility], [address], [place].#### 630-4 ####[place] [address] [place], [place] Ketones Test strip mass conc (U) 80MG/DL Abnormal NEGATIVE [facility] Comment on above: Performed By: #### 5 8077-9, 22906-7 ####[facility], [address], [place].#### 630-4 ####[address] Nitrite Test strip mass conc (U) Negative Normal NEGATIVE [facility] Comment on above: Performed By: #### 5 8077-9, 99214-2 ####[facility], [facility] [address], [place].#### 630-4 ####[place] [address] [place], [place] Urine, appearance TURBID Abnormal CLEAR [facility] Comment on above: Performed By: #### 5 8077-9, 62061-4 ####[facility], [address], [place].#### 630-4 ####[place] [address] [place], [place] Urine, color TELLO Normal YELLOW [facility] Comment on above: Performed By: #### 5 8077-9, 20511-5 ####[facility], [address], [place].#### 630-4 ####[place] [address] [place], [place] Urine, hemoglobin presence 10/UL Abnormal NEGATIVE [facility] Comment on above: Performed By: #### 5 8077-9, 20886-1 ####[facility], [address], [place].#### 630-4 ####[place] [address] [place], [place] Urine, leukocyte esterase presence 25/UL Abnormal NEGATIVE [facility] Comment on above: Performed By: #### 5 8077-9, 09626-9 ####[facility], [address], [place].#### 630-4 ####[place] [address] [place], [place] Urine, pH 5.0 [pH] Normal 4.5-8.0 [facility] Comment on above: Performed By: #### 5 8077-, 12900-3 ####[facility], [address] [facility], [place].#### 630-4 ####[address] Urine, protein 100 mg/dL Abnormal NEGATIVE [facility] Comment on above: Performed By: #### 5 8077-9, 28707-5 ####[facility], [facility], [place].#### 630-4 ####[address] Urine, specific gravity 1.032 High 1.002-1.030 [facility] Comment on above: Performed By: #### 5 8077-9, 89917-6 ####[facility], [address], [place].#### 630-4 ####[address] Urobilinogen Test strip mass conc (U) NORMAL Normal NORMAL [facility] Comment on above: Performed By: #### 5 8077-9, 79338-6 ####[facility], [address] [facility] [place].#### 630-4 ####[place] [address] [place], [place] Depart Summaryon 10-10-2017 Depart Summary EMERGENCY DEPARTMENT DISCHARGE SUMMARYPATIENT NAME:JODI BOSTON : 22 Years SEX: Female PHONE:[phone]: 10/10/2017 1:18 PM : 1995 ATTENDING PHYSICIAN:Yaneth Radford MD PCP: Physician, No PCP CHIEF COMPLAINT: Fever, Cough/ST, Congestion Allergies Compazine (Anger)Problems Active No Chronic Problems DISCHARGE DIAGNOSIS: DISCHARGE INSTRUCTIONS: [employer] work release. ([id number]); Upper Respiratory Infection, Adult; Acute Bronchitis; Pharyngitis; Strep Throat; Sinusitis, Adult ED PHYSICIAN DOCUMENTATION: History of Present Illness I have introduced myself as the PA and informed the patient of the supervising/ collaborating physician who is available upon request. I have discussed the case with the ED physician who participated in the decisions regarding any therapeutic interventions. Physician: Dr. RadfordLembnq70-amtc-jta white female with history of heart murmur [...] congestion and mild cough. She used numerous bpze-vsk-ekaalzp medications and thought that she was getting [...] FOLLOW UP:FOLLOW-UP APPOINTMENTS: Provider: Specialty: Address: Date: [facility] [address] [address] (8) Follow-up as needed Comment: This is [...] be significantly worsening instead of improving. Normal [facility] ED Pat Eduon 10-10-2017 ED Pat Edu [place] [address] [facility] Discharge Instructions JODI BOSTON , Please provide this information to your Primary Care/Specialist Name : JODI BOSTON Current Date : 10/10/2017 14:43:31DOB : 1995 12:00 PM Primary Care Physician: Physician, [place] PCP Diagnosis : Follow-Up Instructions:JODI BOSTON has been given these follow-up instructions: FOLLOW-UP APPOINTMENTS: Provider: Specialty: Address: Date: [facility] [address] [address] (6) Follow-up as needed Comment: This is [...] and Patient Education(s) : [employer] work release. ([id number]); Upper Respiratory Infection, Adult; Acute Bronchitis; Pharyngitis; Strep Throat; Sinusitis, Adult EMERGENCY SERVICES MEDICATION LISTLista de Medicaciones de los Servicios de Emergencia Name JODI BOSTON MRN ([facility])-[id number] PLEASE READ THE FOLLOWING REGARDING YOUR MEDICATIONS [...] doses are changed, or new medications (including gabv-tzx-rwkmnza products) are added. If you have any [...] TAKE UNTIL YOU TALK TO YOUR DOCTORNone [place] [address] [facility] Department Discharge Instructions Name: TEJ JODI Smith Current Date: 10/10/2017 14:43:31 : 1995 12:00 PM Primary Physician: Physician, No PCP We would like to thank you for choosing [facility] for your emergency medical needs. We [...] health of those around you. Call the [employer] at 0-427-CNYF-USA or the [employer] at 5-973-CGD-3748 for more information.High blood pressure: Your screening blood pressure today was 115 mm Hg / . Hypertension (high blood pressure) is blood pressure over 120/80. People with hypertension should contact their primary care provider within 30 days to follow up. Check your patient portal for additional blood pressure information.Immunizations:I mmunization is a way to protect against deadly infections. Discuss this with your child's jewelry sales associate, or Public Health Department. Your family practice doctor can determine if you need pneumonia or flu vaccine. [facility] Department can be reached at .Domestic [...] suicide hotline, anytime day or night, at 0-098-728-UHDP. Pharmacy Information:Below is a list of 24 hour pharmacies that we are aware of. We suggest that you call the specific pharmacy for their hours before traveling to a location. Hours may vary on holidays. [facility] Pharm[facility] [address] [address] [phone] [place] [address] [phone] [place] [address] [phone] [place] [address] [phone] [place] [address] [phone] [address] [phone] [place] [address] [phone] Take all medications as directed. If you need prescription assistance, contact the following agencies:?? Partnership for Prescription Assistance at or www.pparx.org?? [facility] Best Rx at or www.Identec Solutionsstrx.org?? www.KoboRx.Adenios is a site with many valuable coupons Patient Education Materials JODI BOSTON has been given the following patient education materials: [facility] [address] [place] [id number]: [phone] Release FormThis notice verifies that your employee [...] Document Reviewed: 07/20/2012Xenaevcarli Interactive Patient Education ?2016 J Kumar Infraprojects.ENTPharyngitisPharyngit is is redness, pain, and swelling (inflammation) [...] urine clear or pale yellow. ?Only take ckft-edh-sxuecsq or prescription medicines as directed by your [...] Document Reviewed: 03/13/2014Prieto Interactive Patient Education ?2016 J Kumar [employer]fraprojects.Strep ThroatStrep throat is an infection of the [...] Document Reviewed: 10/29/2015Xenaevcarli Interactive Patient Education ?2016 [employer]ang[employer] [facility].Emergency MedicineUpper Respiratory Infection, AdultMost upper respiratory infections [...] Document Reviewed: 10/11/2014Prieto Interactive Patient Education ?2016 J Kumar [employer]fraprojects.Acute BronchitisBronchitis is inflammation of the airways that [...] Document Reviewed: 12/27/2013Prieto Interactive Patient Education ?2016 [employer]><><><><><><><><><><>< ><><><><><><><><><><><><><> Patient Visit Summary Signature JODI BOSTON has been given the following list of patient education materials, prescriptions and follow-up instructions: TEJ Whitten MORGAN A, have received the above patient education materials/instructions and have verbalized understanding: Date Time Patient Signature Date Time Provider Signature Normal [facility] ED Physician Noteson 018 ED Physician Notes Patient: NORIS BOSTON MRN: [id number] Age: 22 years Sex: Female : 1995 Associated Diagnoses: None Author: Gabriel Hutchinson History of Present Illness I have introduced myself as the PA and informed the patient of the supervising/ collaborating physician who is available upon request. I have discussed the case with the ED physician who participated in the decisions regarding any therapeutic interventions. Physician: Dr. RadfordAhdgjs32-xkkn-vtq white female with history of heart murmur [...] congestion and mild cough. She used numerous cfxe-igv-mxodrwk medications and thought that she was getting [...] Upper Respiratory Infection, Adult, [employer] work release. ([id number]). Follow up with: ; [facility] Within Follow-up as needed This is [...] Chief Complaint-Triage Fever, Cough/ST, Congestion . Normal [facility] ED Physician Notes PDF Normal [facility] XR Chest 2 Viewson 8 XR Chest 2 views STUDY: Chest two vie ws dated 10/10/2017 1:59 PM.COMPARISON: None.HISTORY: Cough. Fever. 3 days of symptoms. Back pain. Smoking history.FINDINGS: The heart and mediastinum are not enlarged. Vasculature is not increased. No acute consolidation, effusion or pneumothorax is identified.IMPRESSION: No acute cardiopulmonary disease identified. Immediate final results were provided per protocol.[facility] thanks you for the opportunity to care for your patient. Workstation ID: [id number] FINAL REPORT Dictated By: Marcos Dueñas MD 10/10/2017 14:01Assigned Physician: Marcos Dueñas MDReviewed and Electronically Signed By: Marcos Dueñas MD 10/10/2017 14:01Transcribed by: HELEN 10/10/2017 14:01Technologist: [facility] Normal [facility] BMPon 05-07-2017 Anion gap 3 molar conc 14 mmol/L Invalid Interpretation Code 10 - 20 mmol/L [facility] Calcium mass conc 9.0 mg/dL Invalid Interpretation Code 8.4 - 10.2 mg/dL [facility] Chloride molar conc 102 mmol/L Invalid Interpretation Code 98 - 108 mmol/L [facility] Creatinine mass conc 0.52 mg/dL Invalid Interpretation Code 0.4 - 1.1 mg/dL [facility] GFR/1.73 sq M predicted among non-blacks MDRD vol rate/area (S/P/Bld) The eGFR should be used for monitoring renal function only and not for medication dosing. Invalid Interpretation Code [facility] GFR/1.73 sq M.predicted CKD-EPI vol rate/area (S/P/Bld) 137 mL/min/1.73 m2 Invalid Interpretation Code >=60 [facility] Glucose mass conc 88 mg/dL Invalid Interpretation Code 65 - 99 mg/dL [facility] HCO3 molar conc 27 mmol/L Invalid Interpretation Code 21 - 32 mmol/L [facility] Potassium molar conc 3.7 mmol/L Invalid Interpretation Code 3.5 - 5.1 mmol/L [facility] Sodium molar conc 139 mmol/L Invalid Interpretation Code 135 - 145 mmol/L [facility] Urea nitrogen mass conc 13 mg/dL Invalid Interpretation Code 8 - 25 mg/dL [facility] Urea nitrogen/Creatinine mass ratio 25.0 mg/mg High 10.0 - 20.0 [facility] CBC Auto Differentialon 04-19 Basophils Auto #/vol (Bld) 0.02 K/mcL Invalid Interpretation Code 0.00 - 0.30 [facility] Basophils/100 WBC Auto (Bld) 0.3 % Invalid Interpretation Code [facility] Eosinophils Auto #/vol (Bld) 0.06 K/mcL Invalid Interpretation Code 0.00 - 0.50 [facility] Eosinophils/100 WBC Auto (Bld) 0.8 % Invalid Interpretation Code [facility] Erythrocyte distribution width Auto Entitic volume (RBC) 18.4 % High 11.6 - 14.8 % [facility] Hematocrit Auto Volume Fraction (Bld) 36.9 % Invalid Interpretation Code 36 - 46 % [facility] Hemoglobin mass conc (Bld) 11.4 g/dL Low 12 - 16 g/dL [facility] Immature granulocytes #/vol (Bld) 0.02 K/mcL Invalid Interpretation Code 0.00 - 0.30 [facility] Immature granulocytes/100 WBC (Bld) 0.30 % Invalid Interpretation Code [facility] Comment on above: The IG parameter is the percentage of metamyelocytes, myelocytes, and promyelocytes. Lymphocytes Auto #/vol (Bld) 2.18 K/mcL Invalid Interpretation Code 0.90 - 4.00 [facility] Lymphocytes/100 WBC Auto (Bld) 28.3 % Invalid Interpretation Code [facility] MCH Auto Entitic mass (RBC) 24.6 pg Low 26 - 34 pg [facility] MCHC Auto mass conc (RBC) 30.9 g/dL Low 31 - 37 g/dL [facility] MCV Auto Entitic volume (RBC) 79.7 fL Low 80 - 100 fL [facility] Monocytes Auto #/vol (Bld) 0.56 K/mcL Invalid Interpretation Code 0.30 - 0.90 [facility] Monocytes/100 WBC Auto (Bld) 7.3 % Invalid Interpretation Code [facility] Neutrophils Auto #/vol (Bld) 4.85 K/mcL Invalid Interpretation Code 1.70 - 7.00 [facility] Neutrophils/100 WBC Auto (Bld) 63.0 % Invalid Interpretation Code [facility] Nucleated RBC #/vol (Bld) 0.00 K/mcL Invalid Interpretation Code 0.00 - 0.00 [facility] Nucleated RBC/100 WBC Ratio (Bld) 0.0 % Invalid Interpretation Code [facility] Platelet mean volume Auto Entitic volume (Bld) 11.3 fL Invalid Interpretation Code 9 - 15.5 fL [facility] Platelets Auto #/vol (Bld) 277 K/mcL Invalid Interpretation Code 150 - 400 [facility] RBC Auto #/vol (Bld) 4.63 M/mcL Invalid Interpretation Code 4.00 - 5.20 [facility] WBC Auto #/vol (Bld) 7.69 K/mcL Invalid Interpretation Code 4.50 - 11.00 [facility] CBC w/ Diffon 05-07-2017 CBC w/ Diff The following orders were created for panel order CBC w/ Diff. Procedure Abnormality Status --------- ------ CBC Auto Differential[[id number]] Abnormal Final result Please view results for these tests on the individual orders. Invalid Interpretation Code [employer] Work Phone: Gold Topon 05-07-2017 Extra Tube Hold for add-ons. Invalid Interpretation Code [facility] Comment on above: Auto resulted. Mcdowell Drawon 05-07-2017 Mcdowell Draw The following orders were created for panel order Mcdowell Draw. Procedure Abnormality Status --------- ------ Gold Top[[id number]] Final result Light Blue Top[[id number]] Final result Wright Top[[id number]] Final result [place] Top[[id number]] Final result Please view results for these tests on the individual orders. Invalid Interpretation Code [facility] Work Phone: Urinalysison 05-07-2017 Bacteria Auto Ql (U) None Seen Invalid Interpretation Code None Seen /hpf [facility] Bilirubin Ql (U) Negative Invalid Interpretation Code Negative [facility] Clarity Refractometry automated Nom (U) Clear Invalid Interpretation Code Clear [facility] Color Auto Nom (U) Yellow Invalid Interpretation Code Colorless, Yellow [facility] Epithelial cells.squamous Auto #/area (Urine sed) <1 Invalid Interpretation Code 0 - 4 /hpf [facility] Glucose Automated test strip mass conc (U) Negative Invalid Interpretation Code Negative mg/dL [facility] Hemoglobin Automated test strip Ql (U) Negative Invalid Interpretation Code Negative [facility] Interpretation and review of laboratory results Abnormal Invalid Interpretation Code [facility] Ketones mass conc (U) Negative Invalid Interpretation Code Negative mg/dL [facility] Leukocyte esterase Automated test strip Ql (U) Negative Invalid Interpretation Code Negative [facility] Mucus Auto #/area (Urine sed) Few Abnormal None Seen, Rare /lpf [facility] Nitrite Automated test strip Ql (U) Negative Invalid Interpretation Code Negative [facility] pH Test strip (U) 6.0 [pH] Invalid Interpretation Code 5.0 - 7.0 [facility] Protein mass conc (U) 30 Abnormal Negative mg/dL [facility] Comment on above: False positive resul ts may occur in urines with large amounts of hemoglobin, pH greater than 8.0, contrast medium, or disinfectants including ammonium compounds. Specific gravity Automated test strip Relative Density (U) 1.021 1 Invalid Interpretation Code 1.005 - 1.025 [facility] Urobilinogen Test strip Qn (U) <2.0 Invalid Interpretation Code <2.0 mg/dL [facility] WBC Auto #/area (Urine sed) 1 /hpf Invalid Interpretation Code 0 - 5 [facility] Urinalysis Microscopic examinat ion is performed on all urinalysis samples and only positive findings are reported. The test for blood on the chemical analytic portion of urinalysis may also be positive due to hemoglobinuria and myoglobinuria and if red blood cells are present they are quantified by microscopic examination. Invalid Interpretation Code [facility] Urine Pregnancyon 05-07-2017 HCG ( test) Ql (U) Negative Invalid Interpretation Code Negative [facility] Interpretation and review of laboratory results Normal Invalid Interpretation Code [facility] Vital Signs Date Time Vital [...] 13:44-0400 BP Diastolic 71 mm[Hg] Solis French [facility] Work Phone: 05-08-2017 13:44-0400 BP Systolic 118 mm[Hg] Solis French [facility] Work Phone: 05-08-2017 13:44-0400 Pulse (Heart Rate) 68 /min Solis French [facility] Work Phone: 05-08-2017 13:44-0400 Pulse Oximetry 99 % [facility]: 05-08-2017 13:44-0400 Respiratory Rate 18 /min Solismallika French [facility] Work Phone: 05-08-2017 10:49-0400 BMI (Body Mass Index) 23.17 kg/m2 Solis French [facility] Work Phone: 05-08-2017 10:49-0400 Body Temperature 98.29 [degF] Solis French [employer] Work Phone: 05-08-2017 10:49-0400 Height 162.6 cm Solis French [employer] Work Phone: 05-08-2017 10:49-0400 Weight 61.24 kg Solis French [employer] Work Phone: 05-07-2017 19:00-0400 BP Diastolic 62 mm[Hg] Henri Pulliam [facility] Work Phone: 05-07-2017 19:00-0400 BP Systolic 108 mm[Hg] Henri Pulliam [employer] Work Phone: 05-07-2017 19:00-0400 Pulse (Heart Rate) 63 /min Henri Pulliam [employer] Work Phone: 05-07-2017 19:00-0400 Respiratory Rate 16 /min Henri Pulliam [facility] Work Phone: 05-07-2017 16:14-0400 BMI (Body Mass Index) 22.86 kg/m2 Henri Pulliam [facility] Work Phone: 05-07-2017 16:14-0400 Body Temperature 98.8 [degF] Henri Pulliam [employer] Work Phone: 05-07-2017 16:14-0400 Height 162.6 cm Henri Pulliam [employer] Work Phone: 05-07-2017 16:14-0400 Pulse Oximetry 100 % Henri Pulliam [facility] Work Phone: 05-07-2017 16:14-0400 Weight 60.42 kg Henri Pulliam [employer] Work Phone: Encounters Encounter Date Encounter Type Care Provider Facility Start: 08-28-2023 Clinisync Result Encounter Jeri GARRETT Work Phone: [facility] Unsolicited Start: 08-28-2023 Clinisync Result Encounter Jeri GARRETT Work Phone: [facility] Unsolicited Start: 07-09-2021 End: 07-12-2021 ambulatory DARY Hunter [facility] Start: 12-27-2017 End: 12-27-[address] [facility] Start: 12-27-2017 End: 12-27-2017 Office/outpatient visit, est, level 3 Mari Ham Work Phone: [facility] [address] Start: 11-21-2017 End: 11-21-2017 Emergency department patient visit No PCP Physician Facility:[facility] Start: 10-10-2017 End: 10-10-2017 Emergency department patient visit No PCP Physician Facility:[facility] Start: 05-08-2017 End: 05-08-2017 Emergency department patient visit ROXANE SIMS [facility] Start: 05-08-2017 End: 05-08-2017 Emergency department patient visit Solis French Work Phone: [facility] Emergency Department Comment on above: Trapezius muscle spa sm (Primary Dx) Start: 05-07-2017 End: 05-07-2017 [facility] Start: 05-07-2017 End: 05-07-2017 Emergency department patient visit Henri French Heraclio Work Phone: [facility] Emergency Department Comment on above: Nonintractable heada cheryle, unspecified chronicity pattern, unspecified headache type (Primary Dx) Procedures Date Procedure Procedure Detail Performing Clinician Start: 08-28-2023 ALL CBC WITH AUTO DIFF Jeri GARRETT Work Phone: Plan of Treatment Date Care Activity Detail Author Start: 08-31-2023 End: 08-31-2023 Patient encounter procedure 08/31/2023 4:00 PM EST Routine [facility] [address] [place] [id number] Timothy Bourgeois, DO [address] [place] [address] Third trimester [facility] Comment on above: Third trimester preg dinora Start: 03-20-2023 Influenza vaccination Influenz a Vaccine (#1) [facility] Start: 03-20-2018 Influenza vaccination SEQUENTI AL INFLUENZA VACCINE (Season Ended) [facility] Start: 03-20-2017 Influenza vaccination SEQUENTI AL INFLUENZA VACCINE (#1) [facility] Work Phone: Start: 2007 Vaccination for luciana n papillomavirus HPV VACCINES (1 of 3 - Female 3 Dose Series) [facility] Work Phone: Start: 1996 Adult depression screening assessment DEPRESSION SCREENING (PHQ9) [facility] Start: 1996 Screening for malign ant neoplasm of cervix PAP SMEAR [facility] Work Phone: Start: 1996 SUBSTANCE ABUSE SCRE ENING (AUDIT-C) SUBSTANCE ABUSE SCREENING (AUDIT-C) [facility] Start: 1996 Tetanus vaccination TETANUS EVERY 10 YR [facility] Work Phone: Streptococcus pyogen es [Presence] in Throat by Organism specific culture Strep A Culture, Throat Routine Sore throat Ordered: 12/27/2017 [facility] Immunizations Immunization Date Immunization Notes Care Provider Mateo francisco 05-08-2016 influenza, seasonal, injectable Henri Pulliam [facility] Work Phone: 05-08-2016 influenza virus vaccine, unspecified formulation Jeri GARRETT Work Phone: [facility] Healthcare Payers Date Payer Category Payer Unknown [id number] 2017 Unknown [id number] 2016 Unknown Social History Date Type Detail Facility Start: 12-27-2017 [facility] History of tobacco use Cigarette Smoker [facility] Work Phone: Start: 12-27-2017 Cigarettes smoked current (pack per day) - Reported [facility] Sex Assigned At Not on file [facility] Work Phone: Start: 05-07-2017 End: 05-08-2017 Tobacco smoking status [facility]IS Former smoker [facility] Work Phone: Tobacco smoking stat [facility] Tobacco smoking consumption unknown [facility] Start: 02-17-2023 [facility] Start: 1995 Sex Assigned At Female [facility] Start: 04-02-2023 Gender identity Identifies as female gender (finding) [facility] Start: 04-02-2023 Sexual orientation Bisexual (finding ) [facility] Healthcare Instructions * Patient Instructions - [...] 1 cup of warm water. Take an elbn-kab-gxpxcia pain medicine, such as acetaminophen (Tylenol), ibuprofen (Advil, Motrin),or naproxen (Aleve). Read and follow all instructions on the label. Be careful when taking lvdw-muh-jghelft cold or flu medicines and Tylenol at [...] soup, may help decrease throat pain. Use wzdv-qkg-wwjmaps throat lozenges to soothe pain. Regular cough [...] Log into your personal health record on [email or web address] and enter U420 in the Education box to learn more about Sore Throat: Care Instructions. Current as of: November 28, 2016 Content Version: .20052381-8509 [email or web address]. Care instructions adapted under license by your healthcare professional. If you have questions about a medical condition or this instruction, always ask your healthcare professional. [email or web address] disclaims any warranty or liability for your [...] rest if you feel tired. Take an boby-ogd-hjpbfte pain medicine if needed, such as acetaminophen (Tylenol), ibuprofen (Advil, Motrin), or naproxen (Aleve). Read and follow all instructions on the label. Be careful when taking nxkl-ile-mpjwsac cold or flu medicines and Tylenol at [...] Log into your personal health record on [email or web address] and enter L906 in the Education box to learn more about Viral Infections: Care Instructions. Current as of: June 06, 2017 Content Version: .20054316-2030 [email or web address]. Care instructions adapted under license by your healthcare professional. If you have questions about a medical condition or this instruction, always ask your healthcare professional. [email or web address] disclaims any warranty or liability for your [...] your doctor if you can take an lhcm-gcs-gtxfwpu medicine. Be careful not to take pain [...] Log into your personal health record on [email or web address] and enter M271 in the Education box to learn more about Headache: Care Instructions. Current as of: May 02, 2016 Content Version: 11.2 5776-3169 [email or web address].la. Care instructions adapted under license by your healthcare professional. If you have questions about a medical condition or this instruction, always ask your healthcare professional. [email or web address] disclaims any warranty or liability for your use of this information. in this encounter Additional Source Comments INFORMATION SOURCE (unrecogn ized section and content) DATE CREATED AUTHOR 01/05/[address] [facility] Care DATE CREATED AUTHOR AUTHOR'S ORGANIZ ATION 01/12/2018 [facility] DATE CREATED AUTHOR AUTHOR'S ORGANIZ ATION 02/02/2018 [facility] DATE CREATED AUTHOR AUTHOR'S ORGANIZ ATION 07/12/2021 [facility] Reason for Visit (unrecogniz ed section and [...] the patient. I discussed the patient with FLAT SURFACER/PA. I agree with the FLAT SURFACER/PA treatment plan. I agree with the FLAT SURFACER/PA plan of care. I agree with the FLAT SURFACER/PA dispo as documented. The patient has been [...] Procedure Abnormality Status --------- ------ CBC Auto Differential[[id number]] Abnormal Final result Please view results for these tests on the individual orders. RAINBOW DRAW Narrative: The following orders were created for panel order Mcdowell Draw. Procedure Abnormality Status --------- ------ Gold Top[[id number]] In process Light Blue Top[[id number]] In process Wright Top[[id number]] In process [place] Top[[id number]] In process Please view results for these [...] note may be different from the original. [facility] ED Resident Note: NAME: Jodi Boston 22 y.o. CSN: [id number] PCP: Roxane Singleton DO History: Chief Complaint: [...] PMSx: Past Surgical History: Procedure Laterality Date Data Officer WISDOM TOOTH EXTRACTION FAM. 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 RAINBOW DRAW Narrative: The following orders were created for panel order Mcdowell Draw. Procedure Abnormality Status --------- ------ Gold Top[[id number]] In process Light Blue Top[[id number]] In process Wright Top[[id number]] In process [place] Top[[id number]] In process Please view results for these [...] file Alyssa Tellez DO ED Resident Physician [facility] (Please note that portions of this note have been completed with a voice recognition software. Efforts were made to correct any errors, but occasionally words are mis-transcribed.) Alyssa Tellez DO Resident 05/07/17 7638 SECONDARY ASSESSMENT - Breathing regular and unlabored, [...] wall movement. Circulation: Skin warm and dry, FIRE PREVENTION CHIEF < 3 seconds, 2+ Bilateral radial pulses. [...] to the room to provide pt with DC/welfare administrator/care instructions. 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 All imaging has been read by a Radiologist. Eleno Thao PA-C 05/08/17 131 Pt presents to the ED c/o of severe neck pain. Pt was tx at [facility] for migraine at which time her [...] night, pt was seen in ED at [facility] yesterday treated for migraine headache, denies headache [...] BE BASED ON THE PRIMARY CLINICAL RECORDS. [employer] [facility]. provides no warranty or guarantee of the accuracy or completeness of information in this document.
== END 2024-03-29 14:38 | disposition home or self-care (01) ==
LOC: NOMS 14:37
PROVIDERS: Visit Provider Obstetrics & Gynecology
DX: N92.0 Excessive and frequent menstruation with regular cycle (principal)
CPT/HCPCS: 76830; 76856

== ENCOUNTER 2024-10-24 09:55 | Outpatient (RCR) | payer OTHER, SELFPAY | END 2024-12-22 13:57 | disposition home or self-care (01) | LOC: PT 09:55 | PROVIDERS: Visit Provider Obstetrics & Gynecology | DX: R10.2 Pelvic and perineal pain (principal); M54.50 Low back pain, unspecified | CPT/HCPCS: 20561; 97110; 97112; 97161 ==

== ENCOUNTER 2024-12-26 20:48 | Outpatient (REF) | payer OTHER, SELFPAY ==
--- OUTSIDE RECORDS SUMMARY | 2024-12-14 10:00 | XMS_ITS | Encounter Summary ---
Author Organization [employer] Address [id number] [address] [place] [address] Care Team Providers Care Slumber Room Attendant Name Role Phone Carlos A Moreno DO Primary Care Provider [phone] Reason for Visit * Reason Comments Conjunctivitis Right eye Encounter Details Date Type Department Care Team (Latest Contact Info) Description 12/14/2024 10:00 AM EDT Telemedicine [facility] [address] [place] [address] Susan Myers, VETERINARIAN-ACQUISITION MARKETING MANAGER [address] [address] Acute conjunctivitis of right eye, unspecified acute conjunctivitis type (Primary Dx); Seasonal allergies Social History Tobacco Use Types Packs/Day Years Used Date Smoking Tobacco: Former Cigarettes Q uit: 07/30/2019 Smokeless Tobacco: Never Alcohol Use Standard Drinks/Week Comments Not Currently 0 (1 standard drink = 0.6 oz pur e alcohol) social Social Connection and Isolation Panel [NHANES] A nswer Date Recorded In a typical week, how many times do you talk on the phone with family, friends, or neighbors? Patient declined 05/01/2020 How often do you get togethe r with friends or relatives? Patient declined 05/01/2020 How often do you attend scientologist or scientologist serv ices? Patient declined 05/01/2020 Do you belong to any clubs o r organizations such as scientologist groups, unions, fraternal or athletic groups, or school groups? Patient declined 05/01/2020 How often do you attend meet ings of the clubs or organizations you belong to? Patient declined 05/01/2020 Are you , , di vorced, , never , or living with a partner? Patient declined 05/01/2020 Overall Financial Resource Strain (CARDIA) Answe r Date Recorded How hard is it for you to pa y for the very basics like food, housing, medical care, and heating? Not hard at all 08/24/2024 PHQ-2 Answer Date Recorded Total Score 9 11/10/2024 [facility] - Occupational Stress Questionnaire Answer Date Recorded Do you feel stress - tense, restless, nervous, or anxious, or unable to sleep at night because your mind is troubled all the time - these days? Patient declined 05/01/2020 Exercise Vital Sign Answer Date Recorde d On average, how many days pe r week do you engage in moderate to strenuous exercise (like a brisk walk)? Patient declined On average, how many minutes do you engage in exercise at this level? Patient declined 05/01/2020 PRAPARE - Transportation Answer Date Re corded In the past 12 months, has l ack of transportation kept you from medical appointments or from getting medications? Patient declined 08/24/2024 In the past 12 months, has l ack of transportation kept you from meetings, work, or from getting things needed for daily living? Patient declined 08/24/2024 [place] Depression Scale Answer Date Recorded [place] Depression Scale Total 6 05/02/2020 The thought of harming myself has occurred to me . Never 05/02/2020 Housing Instability Answer Date Recorde d Are you worried or concerned that in the next two months you may not have stable housing that you own, rent or stay in as a part of a household? Patient Declined 08/24/2024 Childcare Answer Date Recorded Do problems getting child ca re make it difficult for you to work or study? No 05/01/2020 Employment Answer Date Recorded Do you need help finding a [email or web address] career center and/or a training program? No 05/01/2020 Hunger Screening Answer Date Recorded Within the past 12 months we worried whether our food would run out before we got money to buy more. Never True 11/10/2024 Within the past 12 months th e food we bought just didn't last and we didn't have money to get more. Never True 11/10/2024 Purpose - Life Answer Date Recorded Purpose and direction in life Unknown Comments No Sex and Gender Information Value Date Recorded Sex Assigned at Not on file Legal Sex Female 11:52 AM EDT Gender Identity Not on file Sexual Orientation Not on file documented as of this encounter Patient Instructions * Attachments The following attachments cannot be sent through Care Everywhere. * Conjunctivitis (pink eye) ??? ED discharge instructions (Liberian) documented in this encounter Progress Notes * Susan Myers, VETERINARIAN-ACQUISITION MARKETING MANAGER - 12/14/2024 10:00 AM EDT Video Visit via Real-time Synchronous Audiovisual Provider Location: [address] [address] Patient Location: Patient's home Video Visit Consent Statement: I discussed risks, benefits, and alternatives of a real-time synchronous audiovisual consultation with the patient (and any accompanying persons) including the risks that the patient's personal health details and medical records will be discussed over real-time, synchronous, interactive video/audio/telecommunication technology, the visit will not be recorded withoutthe express consent of both the provider and the patient, and that there are some limitations compared to [id number] evaluations. The patient consented to the presence of additional virtual and/or in-person participants. We elected to proceed. The patient's call-back number if disconnected is [phone] Subjective: Patient ID: Eloy Boston is a 29 y.o. female. Chief Complaint Patient presents with Conjunctivitis Right eye Travel Screening 12/14/2024 9:51 AM EDT - Filed by Patient Do you have any of the following new or worsening symptoms? Red eye; Runny nose Have you recently been in contact with someone who was sick? No / Unsure Mychart E-Visit Red Eye 1 12/14/2024 9:52 AM EDT - Filed by Patient Which of the following have you been experiencing One eye is red; Eye itching; Eye drainage or crusting; Increased tearing Have you had any of the following? Allergy symptoms; Runny nose or sneezing How long have you been having these symptoms? Just today Do you have a fever? No, I do not have a fever Are your symptoms associated with swimming? No, I have not been swimming recently Have your eyes been exposed to any chemicals, creams, or drops that may be causing irritation? No Have you suffered any recent injury to your eyes? No Have you been exposed to anyone with similar symptoms? No Do you wear contact lenses? No Have you had any of the following? None of the above Have you had any of the following in the past? I have not had any past problems with my eyes What medications are you currently using for these symptoms? Allergy pills Please enter the medications you have been using Zyrtec 10mg ; Celexa 20mg Anything else you would like to add? Are you ? I am confident that I am not Noticed increased drainage and redness to right eye and nasal congestion. No known ill exposures. He has not tried any therapies other than Zyrtec to help with symptoms and this is not helping her. Has a lot of seasonal allergies. Does not wear contact lenses. Conjunctivitis The current episode started today. The onset was gradual. The problem occurs continuously. The problem has been gradually worsening. Associated symptoms include eye itching, congestion, eye dischargeand eye redness. Pertinent negatives include no fever, no decreased vision and no headaches. The following portions of the patient's history were reviewed and updated as appropriate: allergies, current medications, past family history, past medical history, past social history, past surgicalhistory and problem list. Review of Systems Constitutional: Negative for fever. HENT: Positive for congestion. Eyes: Positive for discharge, redness and itching. Neurological: Negative for headaches. Past Medical History: Diagnosis Date ADHD (attention deficit hyperactivity disorder) Anemia Anxiety Iron (Fe) deficiency anemia Murmur PPD positive 2023 Seizures ([facility]) 2017 Past Surgical History: Procedure Laterality Date HEMORRHOIDECTOMY EXTERNAL X 2 N/A 07/02/2020 Performed by Riat Lakhani MD at [facility] SURGERY WISDOM TOOTH EXTRACTION Current Outpatient Medications on File Prior to Visit Medication Sig Dispense Refill baclofen (LIORESAL) 10 mg tablet Take 0.5 tablets (5 mg total) by mouth 2 (two) times a day as needed for muscle spasms. 20 tablet 0 cetirizine (ZyrTEC) 10 mg tablet Take 1 tablet (10 mg total) by mouth. prn citalopram (CeleXA) 20 mg tablet Take 1 tablet (20 mg total) by mouth in the morning. 90 tablet 1 COMPLETE GER DHA 29 mg iron- 1 mg-200 mg combo pack [DISCONTINUED] EPINEPHrine (EPIPEN) 0.3 mg/0.3 mL auto-injector Inject 0.3 mg into the appropriate muscle. No current facility-administered medications on file prior to visit. Social History Tobacco Use Smoking status: Former Current packs/day: 0.00 Types: Cigarettes Quit date: 07/30/2019 Years since quittin.3 Smokeless tobacco: Never Vaping Use Vaping status: Every Day Devices: Pre-filled or refillable cartridge Substance Use Topics Alcohol use: Not Currently Comment: social Drug use: Not Currently Types: Marijuana Comment: LAST USE WEEK OF JANUARY, gummies Allergies Allergen Reactions Compazine [Prochlorperazine] Abnormal Behavior Latex Rash It is unknown whether the patient is currently . No LMP recorded. Objective: Physical Exam Vitals and nursing note reviewed. Constitutional: General: She is awake. She is not in acute distress. Appearance: Normal appearance. She is not ill-appearing or toxic-appearing. HENT: Nose: Congestion present. Eyes: General: Lids are normal. Gaze aligned appropriately. Extraocular Movements: Extraocular movements intact. Conjunctiva/sclera: Right eye: Right conjunctiva is injected. Chemosis and exudate present. Pupils: Pupils are equal, round, and reactive to light. Pulmonary: Effort: Pulmonary effort is normal. Neurological: General: No focal deficit present. Mental Status: She is alert. Assessment/Plan: Differentials include seasonal allergies, conjunctivitis, cellulitis, hordeolum Right eye drainage, redness, irritation started today. No known trauma to the right eye. Low suspicion for any type of corneal abrasion. Patient does have known history of severe seasonal allergies. Has been taking Zyrtec daily with no relief of symptoms. Did suggest switching up her antihistamine,adding Flonase, and adding Pataday eyedrops. My suspicion for bacterial infection is very low although I did send Polytrim eyedrops in case she does not have success or improvement in symptoms with the other aforementioned therapies. She plans to follow-up if her symptoms are unimproved. I have discussed my clinical exam findings, testing results, recommendations, risks vs. benefits, and alternative diagnoses with the patient. The patient's chart has been reviewed. In addition, I have made suggestions for prescription medications along with multiple OTC symptom management strategies. Red flag warning signs discussed, as well as the necessity to follow up with PCP, UC, or when to visit the ER. The patient has indicated understanding and expressed agreement with this plan of care. Labs for this visit: Eloy was seen today for conjunctivitis. Diagnoses and all orders for this visit: Acute conjunctivitis of right eye, unspecified acute conjunctivitis type - trimethoprim-polymyxin B (POLYTRIM) 10,000 unit- 1 mg/mL drops; Administer 1 drop to both eyes 6 (six) times a day for 10 days. Seasonal allergies - olopatadine (PATANOL) 0.1 % ophthalmic solution; Administer 1 drop to the right eye in the morning and 1 drop before bedtime. - fluticasone propionate (FLONASE) 50 mcg/actuation nasal spray; Administer 2 sprays into each nostril in the morning. Orders Placed or Reconciled This Encounter Medications trimethoprim-polymyxin B (POLYTRIM) 10,000 unit- 1 mg/mL drops Sig: Administer 1 drop to both eyes 6 (six) times a day for 10 days. Dispense: 10 mL Refill: 0 olopatadine (PATANOL) 0.1 % ophthalmic solution Sig: Administer 1 drop to the right eye in the morning and 1 drop before bedtime. Dispense: 5 mL Refill: 0 fluticasone propionate (FLONASE) 50 mcg/actuation nasal spray Sig: Administer 2 sprays into each nostril in the morning. Dispense: 15.8 mL Refill: 0 Total time spent was 20 minutes: Performing a medically appropriate examination and/or evaluation Counseling and educating the patient/family/caregiver Ordering medications, tests, or procedures Documenting clinical information in the electronic or other health record There are no Patient Instructions on file for this visit. Counseling The patient was counseled regarding prognosis, risks and benefits of treatment options, impressions, instructions for management, importance of compliance with treatment, risk factor reductions and patient and family education If you develop any new, worsening, or concerning symptoms of illness, and are unable to follow up with a private physician, please call here for advice or to the nearest Emergency Department for further care immediately. TERRENCE Angelo 12/14/24 1133 documented in this encounter Plan of Treatment Not on file documented as of this encounter Visit Diagnoses Diagnosis Acute conjunctivitis of right eye, unspecified acute conjunctivitis type- Primary Seasonal allergies Allergic rhinitis, cause unspecified documented in this encounter Additional Health Concerns Assessment Noted Time PHQ-9 Depression Total Score: 9 11/11/19 3:42 PM EDT A Body Mass Index follow-up plan has been documented for the patient 02/21/2022 9:54 AM EDT documented as of this encounter Care Teams Slumber Room Attendant Relationship Specialty Start Date End Date Carlos A Moreno DO [address] [place] [address] PCP - General Internal Medicine 07/15/24 documented as of this encounter
--- OUTSIDE RECORDS SUMMARY | 2024-12-26 13:00 | XMS_ITS | Encounter Summary ---
Author Organization [facility] Address [address] [place] [address] Care Team Providers Care Reduction Furnace Operator Helper Name Role Phone Unavailable Primary Care Provider Unavailabl e Reason for Visit * Reason Comments Well Women Visit Encounter Details Date Type Department Care Team (Late st Contact Info) Description 12/26/2024 1:00 PM EDT Office Visit [facility] [address] [place] [id number] Timothy Bourgeois, DO [address] [place] [address] Well woman exam with routine gynecological exam; depression (CMS/HCC); Anxiety, generalized (CMS/HCC) Social History Tobacco Use Types Packs/Day Years Used Date Smoking Tobacco: Never Assessed Comments Unknown Sex and Gender Information Value Date Recorded Sex Assigned at Female 04/02/2023 2:02 PM EDT Legal Sex Female 12:43 PM EDT Gender Identity Female 04/02/2023 2:02 PM EDT Sexual Orientation Bisexual 04/02/2023 2: 02 PM EDT documented as of this encounter Progress Notes * Stacy Roman NP - 12/26/2024 1:00 PM EDT Reason for Appointment: Patient ID: Eloy Boston is a 29 y.o. female who presents for Well Women Visit Patient presents today for Annual Exam. MEDICATIONS Current Outpatient Medications Medication Instructions cetirizine (ZYRTEC) 10 mg, Oral, As needed cholecalciferol (VITAMIN D-3) 5,000 Units, Oral, Daily citalopram (CELEXA) 40 mg, Oral, Daily fluticasone (Flonase) 50 MCG/ACT nasal spray 1 spray, Each Nostril, As needed, Shake gently. Beforefirst use, prime pump. After use, clean tip and replace cap. 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 SURGICAL HISTORY History reviewed. No pertinent surgical history. REVIEW OF SYSTEMS Review of Systems: Review of Systems Constitutional: Negative. HENT: Negative. Eyes: Negative. Respiratory: Negative. Cardiovascular: Negative. Gastrointestinal: Negative. Genitourinary: Negative. Musculoskeletal: Negative. Skin: Negative. Neurological: Negative. All other systems reviewed and are negative. Hematological: Negative. Endocrine: Negative. Allergic/Immunologic: Negative. OBJECTIVE Objective: Physical Exam Constitutional: Appearance: Normal appearance. She is well-developed. Genitourinary: Vulva normal. Breasts: Breasts are soft. Right: Normal. Left: Normal. Cardiovascular: Rate and Rhythm: Normal rate and regular rhythm. Pulmonary: Effort: Pulmonary effort is normal. Breath sounds: Normal breath sounds. Abdominal: General: Bowel sounds are normal. There is no distension. Palpations: Abdomen is soft. Tenderness: There is no abdominal tenderness. There is no guarding or rebound. Musculoskeletal: General: No swelling. Normal range of motion. Right lower leg: No edema. Left lower leg: No edema. Neurological: Mental Status: She is alert and oriented to person, place, and time. Skin: General: Skin is warm and dry. Psychiatric: Mood and Affect: Mood normal. Behavior: Behavior normal. Vitals and nursing note reviewed. Exam conducted with a can inspector present. Vitals: Estimated body mass index is 25.3 kg/m?? as calculated from the following: Height as of 02/08/24: 5' 4 . Weight as of 08/01/24: 147 lb 6.4 oz. BP: No LMP recorded. ASSESSMENT & PLAN ICD-10-CM 1. Well woman exam with routine gynecological exam Z01.419 Pap Smear 2. depression (CMS/HCC) F53.0 3. Anxiety, generalized (CMS/HCC) F41.1 Annual Exam: Patient presents today for an annual exam. Patient states she is doing well and has no complaints. Pap was obtained without difficulty. No orders of the defined types were placed in this encounter. Follow Up: Patient is to return in one year for annual unless needed otherwise. Documented by Stacy Roman NP on behalf of: Timothy Bourgeois DO documented in this encounter Plan of Treatment Upcoming Encounters Date Type Department Care Team (Late st Contact Info) Description 01/01/2026 1:00 PM EDT Office Visit [facility] [address] [place] [address] Timothy Bourgeois DO [address] [place] [address] Scheduled Orders Name Type Priority Associated Diagnoses Orde r Schedule Pap Smear Pathology and Cytology Routine Well woman exam with routine gynecological exam Ordered: 12/26/2024 documented as of this encounter Visit Diagnoses Diagnosis Well woman exam with routine gynecological exam Routine gynecological examination depression (CMS/HCC) Mental disorders of mother, complicating , childbirth, or the puerperium, unspecified as to episode of care Anxiety, generalized (CMS/HCC) documented in this encounter
--- OUTSIDE RECORDS SUMMARY | 2024-12-26 20:50 | XMS_ITS | Encounter Summary ---
Author Organization [employer] Address [id number] [address] [place] [address] Care Team Providers Care Electrical Assemblies Supervisor Name Role Phone Carlos A Moreno DO Primary Care Provider [phone] Encounter Details Date Type Department Care Team (Late st Contact Info) Description 11/28/2019 Telephone [facility] [address] [address] Yari Calabrese MA Social History Tobacco Use Types Packs/Day Years Used Date Smoking Tobacco: Former Cigarettes Q uit: 07/30/2019 Smokeless Tobacco: Never Alcohol Use Standard Drinks/Week Comments Not Currently 0 (1 standard drink = 0.6 oz pur e alcohol) social Childcare Answer Date Recorded Childcare Unknown 12/29/2018 Employment Answer Date Recorded Employment Unknown 12/29/2018 Comments Yes Sex and Gender Information Value Date Recorded Sex Assigned at Not on file Legal Sex Female 11:52 AM EDT Gender Identity Not on file Sexual Orientation Not on file COVID-19 Exposure Response Date Recorded In the last month, have you been in contact with someone who was confirmed or suspected to have Coronavirus / COVID-19? No / Unsure 11/22/2019 1:13 PM EDT documented as of this encounter Plan of Treatment Not on file documented as of this encounter Visit Diagnoses Not on filedocumented in this encounter Additional Health Concerns Infection Onset Date Last Indicated Resolved Time Respiratory Rule-Out 06/21/2021 06/21/2021 021 10:20 AM EST documented as of this encounter Care Teams Electrical Assemblies Supervisor Relationship Specialty Start Date End Date Carlos A Moreno DO [address] [place] [address] PCP - General Internal Medicine 07/15/24 documented as of this encounter
--- OUTSIDE RECORDS SUMMARY | 2024-12-26 20:50 | XMS_ITS | Clinical Summary ---
Author Organization [facility] Address [address] [place] [address] Care Team Providers Care Sleeve Wheel Maker Name Role Phone No, Physician Primary Care Provider Unavailabl e Allergies No known active allergies Medications etonogestrel (NEXPLANON) 68 mg Impl subdermal implant by Subdermal route once. Active omeprazole (PRILOSEC) 20 MG capsule TK ONE C PO QD 11 7 Active EPINEPHrine (EPIPEN) 0.3 mg/0.3 mL AtIn Inject 0.3 mg into the shoulder, thigh, or buttocks once. Active Lactobacillus acidophilus (PROBIOTIC ORAL)Indications :Fortify, 30 Billion Take by mouth. Activ e Active Problems Problem Noted Date Diagnosed Date Mass of breast, right 08/07/2016 Gastritis 08/17/2015 Neuralgic migraines 08/17/2015 Iron deficiency anemia 08/17/2015 Migraine headache 08/17/2015 Panic anxiety syndrome 08/17/2015 Anxiety 08/17/2015 ADD (attention deficit disorder) 08/17/2015 Marijuana abuse 08/17/2015 Immunizations Immunization Administration Dates Next Due INFLUENZA IIV3 4YO OR > FLUZONE [address]30 05/08/2016 Family History Medical History Relation Comments Other Cousin maternal female cousin with lymphatic malformation Migraines Maternal Aunt 1 Stroke Maternal Aunt 1 Migraines Maternal Aunt 2 Stroke Maternal Aunt 2 Migraines Maternal Grandfather Stroke Maternal Grandfather Diabetes Maternal Grandmother type 2 Migraines Maternal Grandmother Ovarian cysts Maternal Grandmother 12 lb cyst Thyroid disease Maternal Grandmother Migraines Mother Thyroid disease Mother Skin cancer Paternal Grandmother Relation Status Comments Cousin Father Alive Maternal Aunt 1 Maternal Aunt 2 Maternal Grandfather Maternal Grandmother Mother Alive Paternal Grandmother Social History Tobacco Use Types Packs/Day Years Used Date Smoking Tobacco: Every Day Cigarettes Smokeless Tobacco: Never Alcohol Use Standard Drinks/Week Comments Yes 0 (1 standard drink = 0.6 oz pur e alcohol) Occ Comments No Sex and Gender Information Value Date Recorded Sex Assigned at Not on file Legal Sex Female 12:40 AM EDT Gender Identity Not on file Sexual Orientation Not on file 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 Industry 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 on file Not on file Not on file Last Filed Vital Signs Vital Sign Reading Time Taken Comments Blood Pressure 121/83 12/27/2017 11:36 AM EDT Pulse 84 12/27/2017 11:36 AM EDT Temperature 36.8 C (98.3 F) 12/27/2017 11:36 AM EDT Respiratory Rate 12 12/27/2017 11:3 6 AM EDT Oxygen Saturation 97% 12/27/2017 11: 36 AM EDT Inhaled Oxygen Concentration - - Weight 62.5 kg (137 lb 11.2 oz) 018 11:36 AM EDT Height 162.6 cm (5' 4 ) 12/27/2017 11:3 6 AM EDT Body Mass Index 23.64 12/27/2017 11:36 AM EDT Plan of Treatment Health Maintenance Due Date Last Done Comments Tetanus: Every 10yrs 1996 Wellness Visit 1999 Depression Screening/Follow-Up (PHQ-2/9) 2008 HIV Screening 2011 Hepatitis C Screening 2014 Pap Smear 2017 COVID-19 Vaccine (2023-2 5 season) 2024 Influenza Vaccine (Season Ended) 2025 05/08/2016, 05/08/2016 Pneumococcal Vaccine: Ped or At-Risk Aged Out No longer eligible b ased on patient's age to complete this topic Care Teams Sleeve Wheel Maker Relationship Specialty Start Date End Date No, Physician [facility] PCP - General 10/28/19
--- OUTSIDE RECORDS SUMMARY | 2024-12-26 20:50 | XMS_ITS | Encounter Summary ---
Author Organization [facility] Address [address] [place] [address] Care Team Providers Care Strap Setter Name Role Phone Unavailable Primary Care Provider Unavailabl e Encounter Details Date Type Department Care Team (Late st Contact Info) Description 12/20/2024 Abstract [facility] [address] [place] [address] Timothy Bourgeois DO [facility] [address] [place], [facility]11 Social History Tobacco Use Types Packs/Day Years Used Date Smoking Tobacco: Never Assessed Comments Unknown Sex and Gender Information Value Date Recorded Sex Assigned at Female 04/02/2023 2:02 PM EDT Legal Sex Female 12:43 PM EDT Gender Identity Female 04/02/2023 2:02 PM EDT Sexual Orientation Bisexual 04/02/2023 2: 02 PM EDT documented as of this encounter Plan of Treatment Upcoming Encounters Date Type Department Care Team (Late st Contact Info) Description 01/01/2026 1:00 PM EDT Office Visit [facility] [address] [place] [address] Timothy Bourgeois DO [facility] [address] [place], [place] [id number] documented as of this encounter Visit Diagnoses Not on filedocumented in this encounter
--- OUTSIDE RECORDS SUMMARY | 2024-12-26 20:50 | XMS_ITS | Encounter Summary ---
Author Organization [facility] Address [address] [place] [address] Care Team Providers Care Copper Plater Name Role Phone Unavailable Primary Care Provider Unavailabl e Encounter Details Date Type Department Care Team (Late st Contact Info) Description 10/11/2024 Abstract [facility] [address] [place] [address] Timothy Bourgeois DO [facility] [address] [place], [facility]11 Social History Tobacco Use Types Packs/Day [...] 01/01/2026 1:00 PM EDT Office Visit [facility] [address] [place] [address] Timothy Bourgeois DO [facility] [address] [place], [place] [id number] documented as of this encounter Visit Diagnoses Not on filedocumented in this encounter
--- OUTSIDE RECORDS SUMMARY | 2024-12-26 20:50 | XMS_ITS | Encounter Summary ---
Author Organization [facility] tem Address [id number] [address] [place] [address] Care Team Providers Care Nut Tapper Name Role Phone Carlos A Moreno DO Primary Care Provider [phone] Encounter Details Date Type Department Care Team (Late st Contact Info) Description 10/03/2019 Telephone [facility] [address] [facility] [place] [phone] Charla Null, DOUGIE-SKYLAR [address] [facility] [place], [place] [id number] Social History Tobacco Use Types Packs/Day Years [...] on file documented as of this encounter Plan of Treatment Not on file documented as of this encounter Visit Diagnoses Not on filedocumented in this encounter Additional Health Concerns Infection Onset Date Last Indicated Resolved Time Respiratory Rule-Out 06/21/2021 06/21/2021 021 10:20 AM EST documented as of this encounter Care Teams Nut Tapper Relationship Specialty Start Date End Date Carlos A Moreno DO [address] [place] [address] PCP - General Internal Medicine 07/15/24 documented as of this encounter
--- OUTSIDE RECORDS SUMMARY | 2024-12-26 20:50 | XMS_ITS | Clinical Summary ---
Author Organization [facility] Address [address] [place] [address] Care Team Providers Care Pipe Fitter Welding Name Role Phone Unavailable Primary Care Provider Unavailabl e Allergies Active Allergy Reactions Criticality Noted Date Comments Latex Rash Low 08/26/2018 Prochlorperazine Medium 05/07/2018 Other Reaction(s): Abnormal Behavior Medications fluticasone (Flonase) 50 MCG/ACT nasal sprayIndications :Nasal Congestion Administer 1 spray into each nostril if needed for rhinitis Shake gently. Before first use, prime pump. After use, clean tip and replace cap. Active cetirizine (ZyrTEC) 10 MG tabletIndication s:Seasonal Allergic Rhinitis Take 10 mg by mouth if needed for allergies Active cholecalciferol (Vitamin D-3) 125 MCG (5000 UT) capsule Take 5,000 Units by mouth Daily Active w/o A Vit-Fe Fum-FA (AzesChew /Postnat al) 13-1 MG chewable tablet Chew 1 each Daily Active ibuprofen 200 MG tablet Take by mouth Active citalopram (CeleXA) 40 MG tabletIndication s: depression (CMS/HCC),Anxiet y, generalized (CMS/HCC) Take 1 tablet (40 mg) by mouth Daily 30 tablet 11 5 Active Active Problems Problem Noted Date Diagnosed Date depression 03/14/2024 Encounters Date Type Department Care Team Description 12/26/2024 1:00 PM EDT Office Visit [facility] [address] [facility] [place] [address] Timothy Bourgeois, DO Well woman exam with routine gynecological exam; depression (CMS/HCC); Anxiety, generalized (CMS/HCC) 12/26/2024 Bamboo flowsheet [facility] [address] [place] [address] Timothy Bourgeois, DO 12/20/2024 Abstract [facility] [address] [place] [address] Timothy Bourgeois, DO 10/11/2024 Abstract [facility] [address] [place] [address] Timothy Bourgeois, DO 10/11/[address] [facility] [address] [place] [address] Timothy Bourgeois, DO 10/05/[address] [address] [place] [address] Vickie Corbin MA from Last 3 Months Social History Tobacco Use Types Packs/Day Years Used Date Smoking Tobacco: Never Assessed Comments Unknown Sex and Gender Information Value Date Recorded Sex Assigned at Female 04/02/2023 2:02 PM EDT Legal Sex Female 12:43 PM EDT Gender Identity Female 04/02/2023 2:02 PM EDT Sexual Orientation Bisexual 04/02/2023 2: 02 PM EDT Last Filed Vital Signs Vital Sign Reading Time Taken Comments Blood Pressure 98/50 08/01/2024 10:32 AM EST Pulse - - Temperature - - Respiratory Rate - - Oxygen Saturation - - Inhaled Oxygen Concentration - - Weight 66.9 kg (147 lb 6.4 oz) 08/01/2024 10:32 AM EST Height 162.6 cm (5' 4 ) 02/08/2024 10:34 AM EDT Body Mass Index 25.3 02/08/2024 10:34 AM EDT Plan of Treatment Upcoming Encounters Date Type Department Care Team (Late st Contact Info) Description 01/01/2026 1:00 PM EDT Office Visit [facility] [address] [place] [address] Timothy Bourgeois, [address] [facility] [place] [address] Health Maintenance Due Date Last Done Comments Influenza Vaccine (Season Ended) 2025 05/08/20 16 Insurance [employer]
--- OUTSIDE RECORDS SUMMARY | 2024-12-26 20:50 | XMS_ITS | Encounter Summary ---
Author Organization [facility] Address [address] [place] [address] Care Team Providers Care Kit Assembler Name Role Phone Daphnie Jeri GARRETT Unavailable Encounter Details Date Type Department Care Team (Late st Contact Info) Description 06/04/2023 Clinisync Result Encounter [facility] External Department Unsolicited Janki Bourgeois, [address] [place], [place] [id number] Social History Tobacco Use Types Packs/Day Years Used Date Smoking Tobacco: Never Assessed Comments Yes Sex and Gender Information Value [...] EDT Office Visit [facility] [address] [facility] [place] [phone] Janki Bourgeois DO [facility] [address] [place], [place] [phone] documented as of this encounter Procedures Procedure Name Priority Date/Time Associated Diagnosis Comments US OB CERVICAL LENGTH 06/04/2023 1:28 AM EST documented in this encounter Results * US OB CERVICAL LENGTH (06/04/2023 1:28 AM EST) Anatomical Region Laterality Modality Other 06/04/2023 1:28 AM EST Narrative 06/04/2023 1:28 [place] [address] Ultrasound Report Signed Patient: JODI BOSTON MR#: [id number] : 1995 Acct:[id number] Age/Sex: 28 / F ADM Date: 06/03/23 Loc: US Attending Dr: Janki Bourgeois D.O. Ordering Physician: Janki Bourgeois D.O. Date of Service: 06/03/23 Procedure(s): US OB cervical length Accession Number(s): [id number] cc: Janki Bourgeois D.O.; Physician,Non-Staff [place] [address] Patient Name: JODI BOSTON MRN: [id number] date: 1995 Sex: F Assigned Patient Location: US Current Patient Location: Accession/Order Number: [id number] Exam Date: 06/03/2023 11:05 Report Date: 06/04/2023 01:28 At the request of: JANKI BOURGEOIS Procedure: US OB cervical length EXAMINATION: US OB cervical length HISTORY: History Of Maternal Cervical Laceration O09.299 COMPARISON: Ultrasound OB transvaginal 04/09/2023 TECHNIQUE: Transabdominal and transvaginal sonographic examination for cervical length. FINDINGS: CERVIX LENGTH: 4.9 cm; closed POSITION: Cephalic HEART RATE: 149 bpm OTHER: Dilated pelvic vessels. Age by EDC: 17 weeks 1 day URIAH by EDC: 11/10/2023 US/US OB cervical length IMPRESSION: 1. Single live intrauterine . 2. Closed cervix 4.9 cm in length. Electronically authenticated by: SHADI LFORES Date: 06/04/2023 01:28 Dictated By: Shadi Flores M.D. Signed By: 06/04/23 0131 DD/ 7 TD/TT: Certification Technician: Procedure Note Radiology, Radiologist, MD - 06/04/2023 [place] [address] Ultrasound Report Signed Patient: JODI BOSTONMR#: [id number] : 1995Acct:[id number] Age/Sex: 28 / FADM Date: 06/03/23 Loc: US Attending Dr: Janki Bourgeois D.O. Ordering Physician: Janki Bourgeois D.O. Date of Service: 06/03/23 Procedure(s): US OB cervical length Accession Number(s): [id number] cc: Janki Bourgeois D.O.; Physician,Non-Staff [place] [facility] [place] [address] Patient Name: JODI BOSTON MRN: [id number] date: 1995 Sex: F Assigned Patient Location: US Current Patient Location: Accession/Order Number: [id number] Exam Date: 06/03/2023 11:05 Report Date: 06/04/2023 01:28 At the request of: JANKI BOURGEOIS Procedure: US OB cervical length EXAMINATION: US OB cervical length HISTORY: History Of Maternal Cervical Laceration O09.299 COMPARISON: Ultrasound OB transvaginal 04/09/2023 TECHNIQUE: Transabdominal and transvaginal sonographic examination for cervical length. FINDINGS: CERVIX LENGTH: 4.9 cm; closed POSITION: Cephalic HEART RATE: 149 bpm OTHER: Dilated pelvic vessels. Age by EDC: 17 weeks 1 day URIAH by EDC: 11/10/2023 US/US OB cervical length IMPRESSION: 1. Single live intrauterine . 2. Closed cervix 4.9 cm in length. Electronically authenticated by: SHADI FLORES Date: 06/04/2023 01:28 Dictated By: Shadi Flores M.D. Signed By:06/04/23 0131 DD/ 0128 TD/TT: Certification Technician: us Janki Bourgeois DO [facility] Final Result documented in this encounter Visit Diagnoses Not on filedocumented in this encounter Care Teams Kit Assembler Relationship Specialty Start Date End Date Jeri Eller PA [address] [place] [address] [place] [address] PCP - Medical [place] [employer] 06/19/22 10/06/24 documented as of this encounter
--- OUTSIDE RECORDS SUMMARY | 2024-12-26 20:50 | XMS_ITS | Encounter Summary ---
Author Organization [facility] Address [address] [place] [address] Care Team Providers Care Senior Administrative Associate Name Role Phone Daphnie Jeri GARRETT Unavailable Encounter Details Date Type Department Care Team (Late st Contact Info) Description 06/23/2023 Clinisync Result Encounter [facility] External Department Unsolicited Janki Bourgeois, DO [address] [place] [address] Social History Tobacco Use Types Packs/Day Years Used Date Smoking Tobacco: Never Assessed Comments Yes Sex and Gender Information Value Date Recorded Sex Assigned at Female 04/02/2023 2:02 PM EDT Legal Sex Female 12:43 PM EDT Gender Identity Female 04/02/2023 2:02 PM EDT Sexual Orientation Bisexual 04/02/2023 2: 02 PM EDT COVID-19 Exposure Response Date Recorded In the last 10 days, have yo u been in contact with someone who was confirmed or suspected to have Coronavirus/COVID-19? No / Unsure 06/08/2023 3:39 PM EST documented as of this encounter Plan of Treatment Upcoming Encounters Date Type Department Care Team (Late st Contact Info) Description 01/01/2026 1:00 PM EDT Office Visit [facility] [address] [place] [phone] Janki Bourgeois, [address] [place] [address] documented as of this encounter Procedures Procedure Name Priority Date/Time Associated Diagnosis Comments US OB ANATOMY 06/23/2023 10:37 PM EST AFP, SERUM, OPEN SPINA BIFIDA Routine 06/23/2023 4:30 PM EST documented in this encounter Results * US OB ANATOMY (06/23/2023 10:37 PM EST) Anatomical Region Laterality Modality Other 06/23/2023 10:3 7 PM EST Narrative 06/23/2023 10:39 [place] [address] Ultrasound Report Signed Patient: JODI BOSTON MR#: [id number] : 1995 Acct:[id number] Age/Sex: 28 / F ADM Date: 06/23/23 Loc: US Attending Dr: Janki Bourgeois D.O. Ordering Physician: Janki Bourgeois D.O. Date of Service: 06/23/23 Procedure(s): US OB anatomy Accession Number(s): [id number] cc: Janki Bourgeois D.O.; Physician,Non-Staff M.[facility] The [address] [address] Patient Name: JODI BOSTON MRN: [id number] date: 1995 Sex: F Assigned Patient Location: US Current Patient Location: US Accession/Order Number: [id number] Exam Date: 06/23/2023 17:00 Report Date: 06/23/2023 22:37 At the request of: JANKI BOURGEOIS Procedure: US OB anatomy EXAMINATION: US OB transvaginal, US OB anatomy HISTORY: SECOND TRIMESTER Z34.92 COMPARISON: No relevant comparison available. TECHNIQUE: Transabdominal sonographic examination was performed for obstetrical and evaluation. FINDINGS: Number: 1 Heart Rate: 153.4 bpm H.B. /min Amniotic Fluid Volume: Subjectively normal Placental Location: Posterior-fundal; lower margin is 6.4 cm from os. Cervix Length: 4.5 cm; closed ANATOMY: Normal Structures -cerebellum, choroid plexus, cisterna magna, lateral cerebral ventricles, orbits, midline falx, hard palate, four-chamber heart, RVOT, LVOT, stomach, kidneys, bladder, umbilical cord insertion into abdomen, three-vessel cord, cervical spine, thoracic spine, lumbar spine, sacral spine, right upper extremity, left upper extremity, right lower extremity, left lower extremity. SUBOPTIMALLY SEEN: None ABNORMALITIES: None BIOMETRY: BPD: 4.9 cm 20 weeks 5 days HC: 18.3 cm 20 weeks 5 days AC: 15.7 cm 20 weeks 6 days FL: 3.2 cm 20 weeks 1 days EFW:360.2 grams; 76% FL/AC: 20.7 FL/BPD: 66.5 HC/AC: 1.2 GESTATIONAL AGE: Age by EDC: 20 weeks 0 days URIAH by EDC: 11/10/2023 Age by current US: 20 weeks 4 days URIAH by current US: 11/06/2023 US/US OB anatomy IMPRESSION: 1. Single live intrauterine with growth detailed above. Electronically authenticated by: SHADI FLORES Date: 06/23/2023 22:37 Dictated By: Shadi Flores M.D. Signed By: 06/23/232238 DD/ 36 TD/TT: Security Installer: Procedure Note Radiology, Radiologist, MD - 06/24/2023 [place] [address] Ultrasound Report Signed Patient: JODI BOSTONMR#: [id number] : 1995Acct:[id number] Age/Sex: Date: 06/23/23 Loc: US Attending Dr: Janki Bourgeois D.O. Ordering Physician: Janki Bourgeois D.O. Date of Service: 06/23/23 Procedure(s): US OB anatomy Accession Number(s): [id number] cc: Janki Bourgeois D.O.; Physician,Non-Staff [place] [facility] [address] [address] Patient Name: JODI BOSTON MRN: [facility]:[id number] date: 1995 Sex: F Assigned Patient Location: US Current Patient Location: Accession/Order Number: [id number] Exam Date: 06/23/2023 17:00 Report Date: 06/23/2023 22:37 At the request of: JANKI BOURGEOIS Procedure: US OB anatomy EXAMINATION: US OB transvaginal, US OB anatomy HISTORY: SECOND TRIMESTER Z34.92 COMPARISON: No relevant comparison available. TECHNIQUE: Transabdominal sonographic examination was performed for obstetrical and evaluation. FINDINGS: Number: 1 Heart Rate: 153.4 bpm H.B. /min Amniotic Fluid Volume: Subjectively normal Placental Location: Posterior-fundal; lower margin is 6.4 cm from os. Cervix Length: 4.5 cm; closed ANATOMY: Normal Structures -cerebellum, choroid plexus, cisterna magna, lateral cerebral ventricles, orbits, midline falx, hard palate, four-chamberheart, RVOT, LVOT, stomach, kidneys, bladder, umbilical cord insertion intoabdomen, three-vessel cord, cervical spine, thoracic spine, lumbar spine, sacralspine, right upper extremity, left upper extremity, right lower extremity, leftlower extremity. SUBOPTIMALLY SEEN: None ABNORMALITIES: None BIOMETRY: BPD: 4.9 cm 20 weeks 5 days HC: 18.3 cm 20 weeks 5 days AC: 15.7 cm 20 weeks 6 days FL: 3.2 cm 20 weeks 1 days EFW:360.2 grams; 76% FL/AC: 20.7 FL/BPD: 66.5 HC/AC: 1.2 GESTATIONAL AGE: Age by EDC: 20 weeks 0 days URIAH by EDC: 11/10/2023 Age by current US: 20 weeks 4 days URIAH by current US: 11/06/2023 US/US OB anatomy IMPRESSION: 1. Single live intrauterine with growth detailed above. Electronically authenticated by: SHADI FLORES Date: 06/23/2023 22:37 Dictated By: Shadi Flores M.D. Signed By:06/23/232238 DD/ 36 TD/TT: Security Installer: us Janki Bourgeois DO [facility] Final Result * AFP, SERUM, OPEN SPINA BIFIDA (06/23/2023 4:30 PM EST) Pathologist [facility] RESULTS Report . [facility] TEST RESULTS: *Screen Negative* . [facility] GEST. AGE ON COLLECTION DATE 20.0 . weeks [facility] GESTAT. AGE BASED ON As provided . [facility] Comment: Recalculations are not recommended when gestational dating by LMP and ultrasound are within 10 days. [age]AH [age] [facility] RACE . [facility] WEIGHT 159 . lbs [facility] INSULIN DEP DIABETES No . [facility] MULTIPLE GESTATION No . [facility] AFP VALUE 44.7 . ng/mL [facility] AFP MOM 0.81 . [facility] [place] [address] [place] [address] . [facility] INTERPRETATION Comment . [facility] Comment: Interpretation: Screen Negative This result is screen negative for OSB. The AFP MoM calculated is based on the gestational age provided. MS-AFP can identify up to 80% of open neural tube defects. Closed neural tube defects and some open defects may not be detected by this test. This test does not screen for Down Syndrome or Trisomy 18. If screening for Down Syndrome or Trisomy 18 is desired, contact [facility] to discuss available options. The [employer] recommends amniocentesis be offered to women age 35 and older. COMMENT: Comment . [facility] Comment: Kari Valencia, Ph.D., [facility] Director References: Available Upon Request. Multiples Of Median Cutoffs For AFP Elevations Gonsalez 2.5 Black 2.8 IDD 2.0 Twins 4.5 Abbreviation Definitions IDD - Insulin Dep Diabetes OSBR - Open Spina Bifida Risk For further inquiries contact [employer] [facility] at [phone]. This test was developed and its performance characteristics determined by [employer]. It has not been cleared or approved by the Food and Drug Administration. Performed at: [facility] [address] [facility], [place], [place] [id number] Spa Consultant: Gigi Walsh [facility], Phone: [phone] 06/23/2023 4:30 PM EST 06/23/2023 4:31 PM EST Narrative [facility] - 06/26/2023 2:07 AM EST [id number]/ us Janki Christelle DO LAB BLOOD ORDERABLES Final Resul t [facility] documented in this encounter Visit Diagnoses Not on filedocumented in this encounter Care Teams Senior Administrative Associate Relationship Specialty Start Date End Date Jeri Eller PA [address] [facility] [address] [place] [address] PCP - Medical [place] [employer] 06/19/22 10/06/24 documented as of this encounter
--- OUTSIDE RECORDS SUMMARY | 2024-12-26 20:50 | XMS_ITS | Encounter Summary ---
Author Organization [facility] Address [address] [place] [address] Care Team Providers Care Powder Shoveler Name Role Phone Daphnie Jeri GARRETT Unavailable Encounter Details Date Type Department Care Team (Late st Contact Info) Description 04/09/2023 Clinisync Result Encounter [facility] External Department Unsolicited Janki Bourgeois, DO [address] [place] [address] Social History Tobacco Use Types Packs/Day [...] suspected to have Coronavirus/COVID-19? No / Unsure 04/09/2023 12:28 PM EDT documented as of this encounter Plan of Treatment Upcoming Encounters Date Type Department Care Team (Late st Contact Info) Description 01/01/2026 1:00 PM EDT Office Visit [facility] OB [address] [place] [phone] Janki Bourgeois, [address] [place], [place] [id number] documented as of this encounter Procedures Procedure Name Priority Date/Time Associated Diagnosis Comments US OB TRANSVAGINAL 04/09/2023 3: 52 PM EDT documented in this encounter Results * US OB TRANSVAGINAL (04/09/2023 3:52 PM EDT) Anatomical Region Laterality Modality Other 04/09/2023 3:52 PM EDT Narrative 04/09/2023 3:52 [place] [address] Ultrasound Report Signed Patient: JODI BOSTON MR#: [id number] : 1995 Acct:[id number] Age/Sex: 28 / F ADM Date: 04/09/23 Loc: US Attending Dr: Janki Bourgeois D.O. Ordering Physician: Janki Bourgeois D.O. Date of Service: 04/09/23 Procedure(s): US OB transvaginal Accession Number(s): [id number] cc: Janki Bourgeois D.O.; Physician,Non-Staff MWilfred The [address] [address] Patient Name: JODI BOSTON MRN: [id number] date: 1995 Sex: F Assigned Patient Location: US Current Patient Location: LAB Accession/Order Number: [id number] Exam Date: 04/09/2023 13:06 Report Date: 04/09/2023 15:52 At the request of: JANKI BOURGEOIS Procedure: US OB transvaginal EXAMINATION: US OB transvaginal HISTORY: MISSED MENSES COMPARISON: No relevant comparison available. FINDINGS: GESTATIONAL SAC: Present and normal appearing. YOLK SAC: Present and normal appearing. POLE: Present and normal appearing. CARDIAC: Present. UTERUS: Normal size and appearance. OVARIES: Right: Normal. Left: Normal. CERVIX: 4.3 cm in length and closed. CUL-DE-SAC: Normal. OTHER: None. AGE BY LMP: 9 weeks 2 days URIAH BY LMP: 11/10/2023 AGE BY US CRL: 9 weeks 4 days URIAH BY US CRL: 11/08/2023 US/US OB transvaginal IMPRESSION: 1. Single live intrauterine . Electronically authenticated by: SHADI FLORES Date: 04/09/2023 15:52 Dictated By: Shadi Flores M.D. Signed By: 04/09/23 1555 DD/ 1552 TD/TT: Breakfast Bar Attendant: Procedure Note Radiology, Radiologist, MD - 04/10/2023 [place] [address] Ultrasound Report Signed Patient: JODI BOSTONMR#: [id number] : 1995Acct:[id number] Age/Sex: 28 / FADM Date: 04/09/23 Loc: US Attending Dr: Janki Bourgeois D.O. Ordering Physician: Janki Bourgeois D.O. Date of Service: 04/09/23 Procedure(s): US OB transvaginal Accession Number(s): [id number] cc: Janki Bourgeois D.O.; Physician,Non-Staff [place] [place] [id number] Patient Name: JODI BOSTON MRN: [id number] date: 1995 Sex: F Assigned Patient Location: US Current Patient Location: LAB Accession/Order Number: [id number] Exam Date: 04/09/2023 13:06 Report Date: 04/09/2023 15:52 At the request of: JANKI BOURGEOIS Procedure: US OB transvaginal EXAMINATION: US OB transvaginal HISTORY: MISSED MENSES COMPARISON: No relevant comparison available. FINDINGS: GESTATIONAL SAC: Present and normal appearing. YOLK SAC: Present and normal appearing. POLE: Present and normal appearing. CARDIAC: Present. UTERUS: Normal size and appearance. OVARIES: Right: Normal. Left: Normal. CERVIX: 4.3 cm in length and closed. CUL-DE-SAC: Normal. OTHER: None. AGE BY LMP: 9 weeks 2 days URIAH BY LMP: 11/10/2023 AGE BY US CRL: 9 weeks 4 days URIAH BY US CRL: 11/08/2023 US/US OB transvaginal IMPRESSION: 1. Single live intrauterine . Electronically authenticated by: SHADI FLORES Date: 04/09/2023 15:52 Dictated By: Shadi Flores M.D. Signed By:04/09/23 1555 DD/ 1552 TD/TT: Breakfast Bar Attendant: us Janki Christelle DO [facility] Final Result documented in this encounter Visit Diagnoses Not on filedocumented in this encounter Care Teams Powder Shoveler Relationship Specialty Start Date End Date Jeri Eller PA [address] [place] [address] [place] [address] PCP - Medical [employer] 06/19/22 10/06/24 documented as of this encounter
--- OUTSIDE RECORDS SUMMARY | 2024-12-26 20:50 | XMS_ITS | Encounter Summary ---
Author Organization [facility] Address [address] [place] [address] Care Team Providers Care Adult Basic Education Manager Name Role Phone Unavailable Primary Care Provider Unavailabl e Encounter Details Date Type Department Care Team (Late st Contact Info) Description 12/26/2024 Bamboo flowsheet [facility] OB [address] [facility] [place] [address] Timothy Bourgeois DO [address] [place], [facility] Social History Tobacco Use Types Packs/Day [...] 01/01/2026 1:00 PM EDT Office Visit [facility] OB [address] [facility] [place] [address] Timothy Bourgeois DO [address] [place], [place] [id number] documented as of this encounter Visit Diagnoses Not on filedocumented in this encounter
--- OUTSIDE RECORDS SUMMARY | 2024-12-26 20:51 | XMS_ITS | Encounter Summary ---
Author Organization [facility] Address [address] [place] [address] Care Team Providers Care Pet Adoption Counselor Name Role Phone Daphnie Jeri GARRETT Unavailable Encounter Details Date Type Department Care Team (Late st Contact Info) Description 10/20/2023 Clinisync Result Encounter [facility] External Department Unsolicited Janki Bourgeois, [address] [place], [place] [phone] Social History Tobacco Use Types Packs/Day Years [...] EDT Office Visit [facility] OB [address] [place] [address] Janki Bourgeois DO [facility] [address] [place], [place] [phone] documented as of this encounter Procedures Procedure Name Priority Date/Time Associated Diagnosis Comments US OB GROWTH 10/20/2023 4:14 PM EDT documented in this encounter Results * US OB GROWTH (10/20/2023 4:14 PM EDT) Anatomical Region Laterality Modality Other 10/20/2023 4:14 PM EDT Narrative 10/20/2023 4:17 PM EDT [address] [address] Ultrasound Report Signed Patient: JODI BOSTON MR#: [id number] : 1995 Acct:[id number] Age/Sex: 28 / F ADM Date: 10/20/23 Loc: [facility] Attending Dr: Janki Bourgeois D.O. Ordering Physician: Janki Bourgeois D.O. Date of Service: 10/20/23 Procedure(s): US OB growth Accession Number(s): [id number] cc: Janki Bourgeois D.O.; Physician,Non-Staff [place] [place] [id number] Patient Name: JODI BOSTON MRN: [id number] date: 1995 Sex: F Assigned Patient Location: [facility] Current Patient Location: [facility] Accession/Order Number: [id number] Exam Date: 10/20/2023 08:40 Report Date: 10/20/2023 16:14 At the request of: JANKI BOURGEOIS Procedure: US OB growth EXAMINATION: US OB growth HISTORY: LGA COMPARISON: Ultrasound OB growth 09/19/2023 FINDINGS: Heart Rate: 156.0 bpm Number: 1.0 Position: CEPHALIC Amniotic Fluid Volume: 13.1 cm Maximum Vertical Pocket: 5.6 cm BIOMETRY: BPD: 9.1 cm cm; 37 weeks 0 days; 67% HC: 33.9 cmcm; 39 weeks 0 days; 73% AC: 36.1 cm cm; 40 weeks 0 days; >97% FL: 7.2 cm cm; 37 weeks 0 days; 50.7 % % EFW: 3618.6 grams; 94% FL/AC: 20.1 FL/BPD: 79.3 HC/AC: 0.9 GESTATIONAL AGE: Age by EDC: 37 weeks 0 days URIAH by EDC: 11/10/2023 Age by US: 38 weeks 2 days URIAH by US: 11/01/2023 US/US OB growth IMPRESSION: 1. Single live intrauterine with growth detailed above. 2. Abdominal circumference is greater than 97th percentile. Electronically authenticated by: SHADI FLORES Date: 10/20/2023 16:14 Dictated By: Shadi Flores M.D. Signed By: 10/20/231616 DD/ 13 TD/TT: Head Of Global Strategic Partnerships: Procedure Note Radiology, Radiologist, MD - 10/21/2023 [place] [address] Ultrasound Report Signed Patient: JODI BOSTON AMR#: [id number] : 1995Acct:[id number] Age/Sex: 28 / FADM Date: 10/20/23 Loc: [facility] Attending Dr: Janki Bourgeois D.O. Ordering Physician: Janki Bourgeois D.O. Date of Service: 10/20/23 Procedure(s): US OB growth Accession Number(s): [id number] cc: Janki Bourgeois D.O.; Physician,Non-Staff [place] [place] [id number] Patient Name: JODI BOSTON MRN: [id number] date: 1995 Sex: F Assigned Patient Location: [facility] Current Patient Location: [facility] Accession/Order Number: [id number] Exam Date: 10/20/2023 08:40 Report Date: 10/20/2023 16:14 At the request of: JANKI BOURGEOIS Procedure: US OB growth EXAMINATION: US OB growth HISTORY: LGA COMPARISON: Ultrasound OB growth 09/19/2023 FINDINGS: Heart Rate: 156.0 bpm Number: 1.0 Position: CEPHALIC Amniotic Fluid Volume: 13.1 cm Maximum Vertical Pocket: 5.6 cm BIOMETRY: BPD: 9.1 cm cm; 37 weeks 0 days; 67% HC: 33.9 cmcm; 39 weeks 0 days; 73% AC: 36.1 cm cm; 40 weeks 0 days; >97% FL: 7.2 cm cm; 37 weeks 0 days; 50.7 % % EFW: 3618.6 grams; 94% FL/AC: 20.1 FL/BPD: 79.3 HC/AC: 0.9 GESTATIONAL AGE: Age by EDC: 37 weeks 0 days URIAH by EDC: 11/10/2023 Age by US: 38 weeks 2 days URIAH by US: 11/01/2023 US/US OB growth IMPRESSION: 1. Single live intrauterine with growth detailed above. 2. Abdominal circumference is greater than 97th percentile. Electronically authenticated by: SHADI FLORES Date: 10/20/2023 16:14 Dictated By: Shadi Flores M.D. Signed By:10/20/231616 DD/ 13 TD/TT: Head Of Global Strategic Partnerships: us Janki Christelle DO [facility] Final Result documented in this encounter Visit Diagnoses Not on filedocumented in this encounter Care Teams Pet Adoption Counselor Relationship Specialty Start Date End Date Jeri Eller PA [address] [place] [address] [place] [address] PCP - Medical [place] [employer] 06/19/22 10/06/24 documented as of this encounter
--- OUTSIDE RECORDS SUMMARY | 2024-12-26 20:51 | XMS_ITS | Encounter Summary ---
Author Organization [facility] tem Address [id number] [address] [place] [address] Care Team Providers Care Security Software Engineer Name Role Phone Carlos A Moreno DO Primary Care Provider [phone] Encounter Details Date Type Department Care Team (Late st Contact Info) Description 07/21/2024 Orders Only [facility] Internal Medicine - Family Medicine [address] [place] [address] Carlos A Moreno DO [address] [place] [address] Hypothyroidism, unspecified type (Primary Dx) Social History Tobacco Use Types Packs/Day Years [...] declined 05/01/2020 How often do you attend faith or voodoo serv ices? Patient declined 05/01/2020 Do you belong to any clubs o r organizations such as faith groups, unions, fraternal or athletic groups, or [...] like food, housing, medical care, and heating? Patient declined 05/01/2020 PHQ-2 Answer Date Recorded Total Score 6 07/18/2024 [facility] - Occupational [...] appointments or from getting medications? Patient declined 05/01/2020 In the past 12 months, has l ack of transportation kept you from meetings, work, or from getting things needed for daily living? Patient declined 05/01/2020 [place] Depression Scale Answer Date Recorded [place] Depression Scale Total 6 05/02/2020 The thought of harming myself has occurred to me . Never 05/02/2020 Childcare Answer Date Recorded Do problems getting child ca re make it difficult for you to work or study? No 05/01/2020 Employment Answer Date Recorded Do you need help finding a l al career center and/or a training program? No 05/01/2020 Hunger Screening Answer Date Recorded Within the past 12 months we worried whether our food would run out before we got money to buy more. Never True 07/18/2024 Within the past 12 months th e food we bought just didn't last and we didn't have money to get more. Never True 07/18/2024 Purpose - Life Answer Date Recorded Purpose and direction in life Unknown Comments No Sex and Gender Information Value Date Recorded Sex Assigned at Not on file Legal Sex Female 11:52 AM EDT Gender Identity Not on file Sexual Orientation Not on file documented as of this encounter Plan of Treatment Not on file documented as of this encounter Results * (ABNORMAL) T3 Total (07/29/2024 4:09 PM EST) T3 Total 179(H) 87 - 178 ng/dL 07/29/2024 9:44 PM EST [facility] Serum / Unknown 07/29/2024 4 :09 PM EST 07/29/2024 4:10 PM EST Carlos A Moreno LAB BLOOD ORDERABLES Final Resul t Performing Organization Address [facility] Co de Phone Number [facility] [address] [facility], [facility] [address] [place] [address] * (ABNORMAL) Thyroid antibodies includes TPO and TGAB (07/29/2024 4:09 PM EST) Thyroperoxidase AB 585(H) <10 IU/mL 2024 9:57 PM EST [facility] Thyroglobulin Ab 8(H) <4.0 IU/mL 07/29/2024 9:56 PM EST [facility] PLASMA 07/29/2024 4:09 PM EST 07/29/2024 4:10 PM EST Carlos A Moreno DO LAB BLOOD ORDERABLES Final Resul t Performing Organization Address [facility] Co de Phone Number [facility] [address] [place] [address], [facility] [address] [place] [address] documented in this encounter Visit Diagnoses Diagnosis Hypothyroidism, unspecified type- Primary documented in this encounter Additional Health Concerns Assessment Noted Time PHQ-9 Depression Total Score: 6 07/18/20 24 2:57 PM EST A Body Mass Index follow-up plan has been documented for the patient 02/21/2022 9:54 AM EDT documented as of this encounter Care Teams Security Software Engineer Relationship Specialty Start Date End Date Carlos A Moreno DO [address] [place] [address] PCP - General Internal Medicine 07/15/24 documented as of this encounter
--- OUTSIDE RECORDS SUMMARY | 2024-12-26 20:51 | XMS_ITS | Referral Summary ---
Author Organization [facility] Address [address] [place] [address] Care Team Providers Care Lamp Cleaner Name Role Phone Unavailable Primary Care Provider Unavailabl e Social History Tobacco Use Types Packs/Day Years Used Date Smoking Tobacco: Never Assessed Sex and Gender Information Value Date Recorded Sex Assigned at Not on file Gender Identity Not on file Sexual Orientation Not on file Plan of Treatment Not on file
--- OUTSIDE RECORDS SUMMARY | 2024-12-26 20:51 | XMS_ITS | Encounter Summary ---
Author Organization [employer] tem Address [id number] [address] [place] [address] Care Team Providers Care Graphics Specialist Name Role Phone Carlos A Moreno DO Primary Care Provider [phone] Encounter Details Date Type Department Care Team (Late st Contact Info) Description 05/23/2024 Telephone [facility] Internal [facility] - Family Medicine [address] [place] [phone] Rocio Jo CMA Social History Tobacco Use Types Packs/Day Years [...] declined 05/01/2020 How often do you attend episcopalian or rastafari serv ices? Patient declined 05/01/2020 Do you belong to any clubs o r organizations such as episcopalian groups, unions, fraternal or athletic groups, or [...] 05/01/2020 PHQ-2 Answer Date Recorded Total Score 0 05/01/2020 [facility] Questionnaire Answer Date Recorded [...] needed for daily living? Patient declined 05/01/2020 [place] Depression Scale Answer Date Recorded [place] Depression Scale Total 6 05/02/2020 The thought of harming myself has occurred to me . Never 05/02/2020 Childcare Answer Date Recorded Do problems getting child ca re make it difficult for you to work or study? No 05/01/2020 Employment Answer Date Recorded Do you need help finding a [employer] career center and/or a training program? No 05/01/2020 Hunger Screening Answer Date Recorded Within the past 12 months we worried whether our food would run out before we got money to buy more. Never True 03/09/2023 Within the past 12 months th e food we bought just didn't last and we didn't have money to get more. Never True 03/09/2023 Purpose - Life Answer Date Recorded Purpose and direction in life Unknown Comments No Sex and Gender Information Value Date Recorded Sex Assigned at Not on file Legal Sex Female 11:52 AM EDT Gender Identity Not on file Sexual Orientation Not on file documented as of this encounter Miscellaneous Notes * Telephone Encounter - Rocio Jo CMA - 05/23/2024 10:13 AM EST Patient called because her fiance sees you and she needs a family doctor. Will you except her? * Telephone Encounter - Evaristo Meraz DO - 05/23/2024 10:13 AM EST ok documented in this encounter Plan of Treatment Not on file documented as of this encounter Visit Diagnoses Not on filedocumented in this encounter Additional Health Concerns Assessment Noted Time PHQ-9 Depression Total Score: 0 05/01/20 20 3:47 AM EDT A Body Mass Index follow-up plan has been documented for the patient 02/21/2022 9:54 AM EDT documented as of this encounter Care Teams Graphics Specialist Relationship Specialty Start Date End Date Carlos A Moreno DO [address] [place] [address] PCP - General Internal Medicine 07/15/24 documented as of this encounter
--- OUTSIDE RECORDS SUMMARY | 2024-12-26 20:51 | XMS_ITS | Clinical Summary ---
Author Organization Vrvana s tem Address [facility] [id number] [address] [place] [address] Care Team Providers Care Cafeteria Or Lunchroom Checker Name Role Phone Carlos A Moreno DO Primary Care Provider [phone] Allergies Active Allergy Reactions Criticality Noted Date Comments Prochlorperazine Abnormal Behavior Medium 05/07/2018 Latex Rash Low 08/26/2018 Medications COMPLETE GER DHA 29 mg iron- 1 mg-200 mg combo pack 03/05/20 23 Active cetirizine (ZyrTEC) 10 mg tablet Take 1 tablet (10 mg total) by mouth. prn Active baclofen (LIORESAL) 10 mg tabletIndications: Lumbar spine pain Take 0.5 tablets (5 mg total) by mouth 2 (two) times a day as needed for muscle spasms. 20 tablet 11/01/19 25 Active citalopram (CeleXA) 20 mg tabletIndications: Persistent depressive disorder Take 1 tablet (20 mg total) by mouth in the morning. 90 tablet 1 11/30/19 25 Active olopatadine (PATANOL) 0.1 % ophthalmic solutionIndication s:Seasonal allergies Administer 1 drop to the right eye in the morning and 1 drop before bedtime. 5 mL 12/15/19 25 Active fluticasone propionate (FLONASE) 50 mcg/actuation nasal sprayIndications:S easonal allergies Administer 2 sprays into each nostril in the morning. 15.8 mL 12/15/19 25 Active EPINEPHrine (EPIPEN) 0.3 mg/0.3 mL auto-injector Inject 0.3 mg into the appropriate muscle. Discontinu ed(Patient Stopped On Own) citalopram (CeleXA) 20 mg tablet Take 1 tablet (20 mg total) by mouth in the morning. 025 Discontinu ed(Reorder ) trimethoprim-polym yxin B (POLYTRIM) 10,000 unit- 1 mg/mL dropsIndications:A cute conjunctivitis of right eye, unspecified acute conjunctivitis type Administer 1 drop to both eyes 6 (six) times a day for 10 days. 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 Vitamin B12 deficiency (dietary) anemia 03/23/20 Overview (03/23/2020): Vit B12 supplementation Iron deficiency anemia 02/10/2020 Resolved Problems Problem Noted Date Diagnosed Date Resolved Date Migraine headache 08/17/2015 05/02/2020 Encounters Date Type Department Care Team Description 12/14/2024 10:00 AM EDT Telemedicine [facility] [address] [place] [address] Susan Myers, SECURE SOFTWARE ASSESSOR-WINE AND SPIRITS CLERK Acute conjunctivitis of right eye, unspecified acute conjunctivitis type (Primary Dx); Seasonal allergies 12/14/2024 Travel 11/29/2024 [facility] [address] [place] [address] Carlos A Moreno DO Persistent depressive disorder (Primary Dx) 11/10/2024 11:29 PM EDT - 11/10/2024 11:59 PM EDT Hospital Encounter [facility] [address] [facility] [address] [place] [address] Bilateral sacroiliitis Discharge Disposition: Home 11/10/2024 3:30 PM EDT Office Visit [facility] - [facility] [address] [place] [address] Carlos A Moreno DO Wilfred thyroiditis (Primary Dx); Bilateral sacroiliitis; Attention deficit hyperactivity disorder (ADHD), unspecified ADHD type; Persistent depressive disorder 11/10/2024 Travel 10/31/2024 Orders Only [facility] - [facility] [address] [place] [address] Carlos A Moreno DO Lumbar spine pain (Primary Dx) 10/27/2024 Telephone [facility] [address] [place] [address] Lisa Martinez CMA 10/05/2024 Orders Only [facility] - [facility] [address] [place] [address] Carlos A Moreno DO 09/27/2024 1:35 PM EDT - 09/27/2024 11:59 PM EDT Hospital Encounter [facility] - Lab [address] [place] [id number] Wilfred thyroiditis Discharge Disposition: Home 09/27/2024 Travel 09/26/2024 [facility]phone [facility] [address] [place] [address] Carlos A Moreno DO 09/26/2024 Orders Only [facility] - [facility] [address] [place] [address] Carlos A Moreno DO Wilfred thyroiditis (Primary Dx) from Last 3 Months Immunizations Immunization Administration Dates Next Due MMR 05/01/2020(Deferred: - Rubella t iter immune) Tdap 02/07/2020,08/06/2019 Varicella 05/01/2020(Deferred: - Varicella titer immune) Family History Medical History Relation Name Comments Kidney disease Maternal Grandfather Diabetes Maternal Grandmother Thyroid disease Maternal Grandmother Pancreatic cancer Maternal great-grandmother Graves' disease Mother Wilfred's thyroiditis Mother Thyroid Issues Mother Hypertension Paternal Grandfather Ovarian cancer Paternal Grandmother Breast cancer Neg Hx Colon cancer Neg Hx Uterine cancer Neg Hx Relation Name Status Comments Father Alive Maternal Grandfather Alive Maternal Grandmother Alive Maternal great-grandmother Alive Mother Alive Paternal Grandfather Alive Paternal Grandmother Alive Social History Tobacco Use Types Packs/Day Years Used Date Smoking Tobacco: Former Cigarettes Q uit: 07/30/2019 Smokeless Tobacco: Never Tobacco Cessation:Counseling Given: Not Answered Alcohol Use Standard Drinks/Week Comments Not Currently [...] How often do you attend episcopalian or anabaptist serv ices? Patient declined 05/01/2020 Do you [...] Answer Date Recorded Total Score 9 11/10/2024 [facility] - Occupational Stress [...] needed for daily living? Patient declined 08/24/2024 [place] Depression Scale Answer Date Recorded [place] Depression Scale Total 6 05/02/2020 The thought [...] Recorded Do you need help finding a [employer] career center and/or a training program? No [...] on file Sexual Orientation Not on file Last Filed Vital Signs Vital Sign Reading Time Taken Comments Blood Pressure 90/62 11/10/2024 3:43 PM EDT Pulse 83 11/10/2024 3:43 PM EDT Temperature 37.2 C (99 F) 11/10/2024 3:43 PM EDT Respiratory Rate 16 11/10/2024 3:43 PM EDT Oxygen Saturation 99% 11/10/2024 3:43 PM EDT Inhaled Oxygen Concentration - - Weight 60.9 kg (134 lb 3.2 oz) 11/10/2024 3:43 P M EDT Height 161.9 cm (5' 3.74 ) 11/10/2024 3:43 PM ED T Body Mass Index 23.22 11/10/2024 3:43 PM EDT Plan of Treatment Health Maintenance Due Date Last Done Comments COVID-19 Vaccine (5 - 2023-2 5 season) 2024 11/12/2021, 06/20/2021, 12/07/2020, Additional history exists Pap Smear 02/21/2025 02/21/2022, 05/27/2018 Influenza Vaccine 03/20/2025 09/01/2019, 05/08/2016 Adult BMI Screening 11/10/2025 11/10/2024 Depression Screening 11/10/2025 11/10/2024, 05/02/20 Tobacco Screening 12/14/2025 12/14/2024 DTaP,Tdap and Td Vaccines (7 - Td or Tdap) 02/06/2030 02/07/2020, 08/06/2019, 09/17/2000, Additional history exists Medical Devices Not on file Procedures Procedure Name Priority Date/Time Associated Diagnosis Comments HLA-B27 ANTIGEN Routine 11/10/2024 4:28 PM EDT Bilateral sacroiliitis ERYTHROCYTE SEDIMENTATION RATE (ESR) Routine 11/10/2024 4:28 PM EDT Bilateral sacroiliitis TSH Routine 09/27/2024 1:35 PM EDT Wilfred thyroiditis T4, FREE Routine 09/27/2024 1:35 PM EDT Wilfred thyroiditis PAP SMEAR Routine 02/21/2022 8:55 AM EDT Screening for cervical cancer from Last 3 Months or Most Recently Relevant to Health Maintenance Results * Erythrocyte Sedimentation Rate (ESR) (11/10/2024 4:28 PM EDT) Sed Rate 6 0 - 20 mm/h 11/11/2024 12:38 AM EDT [facility] Blood / Unknown 11/10/2024 4 :28 PM EDT 11/10/2024 11:38 PM EDT us Carlos A Moreno DO LAB BLOOD ORDERABLES Final Resul t [facility] [address] [facility] [place] [address] * HLA-B27 antigen (11/10/2024 4:28 PM EDT) HLA-B27 Negative Negative^Ne gative 11/11/2024 12:39 PM EDT [facility] Blood / Unknown 11/10/2024 4 :28 PM EDT 11/10/2024 11:38 PM EDT Carlos A Moreno ComAbility LAB BLOOD ORDERABLES Final Resul t Performing Organization Address City/[facility]/ZIP Co de Phone Number [facility] [address] [facility], [address] [place] [address] * TSH (09/27/2024 1:35 PM EDT) Pathologist [facility] TSH 2.01 0.49 - 4.67 uIU/mL 09/27/2024 6:57 PM EDT [facility] Blood (PLASMA) 09/27/2024 1: 35 PM EDT 09/27/2024 1:36 PM EDT Carlos A Shirin Josh ComAbility LAB BLOOD ORDERABLES Final Resul t Performing Organization Address City/[facility]/ZIP Co de Phone Number [facility] [address] [facility], [address] [place] [address] * T4, free (09/27/2024 1:35 PM EDT) T4, free 0.92 0.61 - 1.60 ng/dL 09/27/2024 6:59 PM EDT [facility] Blood (PLASMA) 09/27/2024 1: 35 PM EDT 09/27/2024 1:36 PM EDT Carlos A Carpio Josh ComAbility LAB BLOOD ORDERABLES Final Resul t MAY [facility] [address] [place] [address], [address] [place] [address] * Pap Smear (02/21/2022 8:55 AM EDT) 02/21/2022 8:55 AM EDT 02/21/2022 8:56 AM EDT Narrative COPATH - 03/01/2022 12:30 PM EDT [facility] [address] [place] [address] Gynecologic Cytology Consultation Patient Name:JODI BOSTON:1995 (Age: 26)Gender:FTaken:2Reported:03/01/2022hysician(s):TERRENCE Staples ([phone])Copy To: Rec. #:[id number]: #[id number] Final Cytologic Interpretation ThinPrep Pap Test (Cervical): Satisfactory for evaluation. A transformation zone component was not noted. NEGATIVE FOR INTRAEPITHELIAL LESION OR MALIGNANCY. lrd/03/01/2022 [place] [address], License number: [id number]. Electronically Signed Out By CYNDY Marinelli, (ASCP) Date of Last Menstrual Period: 01/31/22 Other Clinical Conditions: Oral contraceptive Z12.4 Screening for malignant neoplasm of cervix Source of Specimen ThinPrep Pap Test (Cervical) Thin Prep Pap (UNIT AIDE TECH) Fee Code(s): G0145 us Elif OCAMPO PATHOLOGY/CYTOLOGY ORDER ANTONIA Final Result Performing Organization Address [facility] Co de Phone Number COPATH from Last 3 Months or Most Recently Relevant to Health Maintenance Insurance [employer] Advance Directives * Full Code (Latest Code Status on File) Date Activated Date Inactivated Comments 05/01/2020 3:10 AM 05/02/2020 10:00 PM * Full Code Date Activated Date Inactivated Comments 04/30/2020 2:05 AM 04/30/2020 4:28 AM * Full Code Date Activated Date Inactivated Comments 04/28/2020 3:35 PM 04/28/2020 5:37 PM * Full Code Date Activated Date Inactivated Comments 04/24/2020 5:25 PM 04/24/2020 6:54 PM Care Teams Cafeteria Or Lunchroom Checker Relationship Specialty Start Date End Date Carlos A Moreno DO [address] [place] [address] PCP - General Internal Medicine 07/15/24
--- OUTSIDE RECORDS SUMMARY | 2024-12-26 20:51 | XMS_ITS | Encounter Summary ---
Author Organization [facility] tem Address [id number] [address] [place] [address] Care Team Providers Care Cap Inspector Name Role Phone Carlos A Moreno DO Primary Care Provider [phone] Encounter Details Date Type Department Care Team (Late st Contact Info) Description 11/29/2024 Orders Only [facility] - Family Medicine [address] [place] [address] Carlos A Moreno DO [address] [place] [address] Persistent depressive disorder (Primary Dx) Social History Tobacco Use Types [...] declined 05/01/2020 How often do you attend sikhism or congregation serv ices? Patient declined 05/01/2020 Do you belong to any clubs o r organizations such as sikhism groups, unions, fraternal or athletic groups, or [...] Answer Date Recorded Total Score 9 11/10/2024 [facility] Occupat ional Health - Occupational [...] needed for daily living? Patient declined 08/24/2024 [place] Depression Scale Answer Date Recorded [place] Depression Scale Total 6 05/02/2020 The thought [...] Recorded Do you need help finding a [facility] career [facility] and/or a training program? No [...] as of this encounter Visit Diagnoses Diagnosis Persistent depressive disorder- Primary documented in this encounter Additional Health Concerns Assessment Noted Time PHQ-9 Depression Total Score: 9 11/11/19 25 3:42 PM EDT A Body Mass Index follow-up plan has been documented for the patient 02/21/2022 9:54 AM EDT documented as of this encounter Care Teams Cap Inspector Relationship Specialty Start Date End Date Carlos A Moreno DO [address] [place] [address] PCP - General Internal Medicine 07/15/24 documented as of this encounter
--- OUTSIDE RECORDS SUMMARY | 2024-12-26 20:51 | XMS_ITS | Encounter Summary ---
Author Organization [facility] Address [address] [place] [address] Care Team Providers Care Button Reclaimer Name Role Phone Jeri Ellre Unavailable Encounter Details Date Type Department Care Team (Late st Contact Info) Description 09/02/2023 Abstract [facility] [address] [facility] [place] [address] Joyce Guaman LPN [address] [facility] Yen HERNANDEZ [facility]11 Social History Tobacco Use Types Packs/Day Years [...] 01/01/2026 1:00 PM EDT Office [facility] [address] [facility] [place] [address] Timothy Bourgeois [address] [facility] [address] [place] [place], [place] [id number] documented as of this encounter Visit Diagnoses Not on filedocumented in this encounter Care Teams Button Reclaimer Relationship Specialty Start Date End Date Jeri Eller PA [address] [place] [address] [place] [address] PCP - Medical [employer] 06/19/22 10/06/24 documented as of this encounter
--- OUTSIDE RECORDS SUMMARY | 2024-12-26 20:51 | XMS_ITS | Encounter Summary ---
Author Organization [facility] Address [address] [place] [address] Care Team Providers Care Director Of Archives Name Role Phone Jeri Eller Unavailable Encounter Details Date Type Department Care Team (Late st Contact Info) Description 09/28/2023 Abstract [facility] [address] [facility] [place] [address] Joyce Guaman LPN [address] [facility] Yen HERNANDEZ [facility] Social History Tobacco Use Types Packs/Day Years [...] 01/01/2026 1:00 PM EDT Office Visit [facility] [address] [facility] [place] [address] Timothy Bourgeois [address] [facility] [address] [place], [place] [id number] documented as of this encounter Visit Diagnoses Not on filedocumented in this encounter Care Teams Director Of Archives Relationship Specialty Start Date End Date Jeri Eller PA [address] [place] [address] [place] [address] PCP - Medical [employer] 06/19/22 10/06/24 documented as of this encounter
--- OUTSIDE RECORDS SUMMARY | 2024-12-26 20:51 | XMS_ITS | Encounter Summary ---
Author Organization Vingles tem Address [facility] [id number] [address] [place] [address] Care Team Providers Care Scheduling Specialist Name Role Phone Carlos A Moreno DO Primary Care Provider [phone] Encounter Details Date Type Department Care Team (Latest Contact Info) Description 12/14/2024 Travel Social History Tobacco Use Types Packs/Day Years [...] declined 05/01/2020 How often do you attend jewish or faith serv ices? Patient declined 05/01/2020 Do you belong to any clubs o r organizations such as jewish groups, unions, fraternal or athletic groups, or [...] Answer Date Recorded Total Score 9 11/10/2024 [facility] Occupat ional Health - Occupational [...] needed for daily living? Patient declined 08/24/2024 [place] Depression Scale Answer Date Recorded [place] Depression Scale Total 6 05/02/2020 The thought [...] Recorded Do you need help finding a [facility] career center and/or a training program? No [...] documented as of this encounter Care Teams Scheduling Specialist Relationship Specialty Start Date End Date Carlos A Moreno DO [address] [place] [address] PCP - General Internal Medicine 07/15/24 documented as of this encounter
--- OUTSIDE RECORDS SUMMARY | 2024-12-26 20:51 | XMS_ITS | Clinical Summary ---
Author Organization [facility] Address [address] [place] [address] Care Team Providers Care Coagulating Bath Operator Name Role Phone Unavailable Primary Care Provider Unavailabl e Allergies No known active allergies Medications montelukast (SINGULAIR) 10 MG tablet Take 1 tablet by mouth nightly 30 tablet 3 12/18/2014 Active fluticasone (FLONASE) 50 MCG/ACT nasal spray 1 spray by Nasal route daily One spray each nostril at bed-time 1 Bottle 3 12/25/2014 Active Immunizations Immunization Administration Dates Next Due DTaP 09/17/2000, 7,1996,1995 Hepatitis B 02/20/1997,1996,1996 Hib, unspecified 09/28/2000, 7,1996,1995 MMR, PRIORIX, M-M-R II, (age 12m+), SC, 0.5mL 09/28/2000 Poliovirus, IPOL, (age 6w+), SC/IM, 0.5mL 09/28/2000,02/20/1997,1996,1995 Social History Tobacco Use Types Packs/Day Years Used Date Smoking Tobacco: Never Assessed Comments No Sex and Gender Information Value Date Recorded Sex Assigned at Not on file Legal Sex Female 6:34 PM EST Gender Identity Not on file Sexual Orientation Not on file Last Filed Vital Signs Vital Sign Reading Time Taken Comments Blood Pressure 125/78 06/26/2014 11:59 AM EST Pulse 96 06/26/2014 11:59 AM EST Temperature - - Respiratory Rate 14 06/26/2014 11:59 AM EST Oxygen Saturation 98% 06/26/2014 11:59 AM EST Inhaled Oxygen Concentration - - Weight 63.3 kg (139 lb 8 oz) 06/26/2014 11:59 AM EST Height 163.8 cm (5' 4.5 ) 06/26/2014 11:59 AM ES T Body Mass Index 23.58 06/26/2014 11:59 AM EST Plan of Treatment Not on file
--- OUTSIDE RECORDS SUMMARY | 2024-12-26 20:51 | XMS_ITS | Encounter Summary ---
Author Organization [facility] Address [address] [place] [address] Care Team Providers Care Laborer Plumbing Name Role Phone DaphnieJeri Unavailable Encounter Details Date Type Department Care Team (Late st Contact Info) Description 03/30/2024 Clinisync Result Encounter [facility] External Department Unsolicited Janki Bourgeois, DO [address] [place], [place] [id number] Social History Tobacco Use Types Packs/Day Years [...] Visit [facility] [address] [place] [address] Janki Bourgeois DO [address] [place], [place] [address] documented as of this encounter Procedures Procedure Name Priority Date/Time Associated Diagnosis Comments US PELVIS W/ TRANSVAGINAL 03/30/2024 4:24 PM EDT documented in this encounter Results * US PELVIS W/ TRANSVAGINAL (03/30/2024 4:24 PM EDT) Anatomical Region Laterality Modality Other 03/30/2024 4:24 PM EDT Narrative 03/30/2024 4:27 [place] [address] Ultrasound Report Signed Patient: JODI BOSTON MR#: [id number] : 1995 Acct:[id number] Age/Sex: 29 / F ADM Date: 03/29/24 Loc: [facility] Attending Dr: Janki Bourgeois D.O. Ordering Physician: Janki Bourgeois D.O. Date of Service: 03/29/24 Procedure(s): US pelvis w/ transvaginal Accession Number(s): [id number] cc: Janki Bourgeois D.O.; Physician,Non-Staff M.[place] [place] [id number] Patient Name: JODI BOSTON MRN: [id number] date: 1995 Sex: F Assigned Patient Location: [facility] Current Patient Location: Accession/Order Number: [id number] Exam Date: 03/29/2024 14:39 Report Date: 03/30/2024 16:24 At the request of: JANKI BOURGEOIS Procedure: US pelvis w/ transvaginal EXAMINATION: US pelvis w/ transvaginal HISTORY: MENORRHAGIA COMPARISON: No relevant comparison available. FINDINGS: Transabdominal and transvaginal images The uterus is normal in size, contour and echotexture measuring 8.6 x 3.4 x 5.3 cm, anteverted, anteflexed. No focal myometrial mass The endometrium measures 7 mm, normal The right ovary is normal measuring 3.3 x 2.2 x 3.2 cm. Normal color and Doppler flow. The left ovary is normal measuring 2.3 x 1.8 x 1.7 cm. Normal color and Doppler flow US/US pelvis w/ transvaginal IMPRESSION: Normal exam Electronically authenticated by: ALEJANDRA CARR Date: 03/30/2024 16:24 Dictated By: Alejandra Carr M.D. Signed By: 03/30/241626 DD/ 23 TD/TT: Striper Machine: Procedure Note Radiology, Radiologist, MD - 03/31/2024 [place] [address] Ultrasound Report Signed Patient: JODI BOSTON AMR#: [id number] : 1995Acct:[id number] Age/Sex: 29 / FADM Date: 03/29/24 Loc: [facility] Attending Dr: Janki Bourgeois D.O. Ordering Physician: Janki Bourgeois D.O. Date of Service: 03/29/24 Procedure(s): US pelvis w/ transvaginal Accession Number(s): [id number] cc: Janki Bourgeois D.O.; Physician,Non-Staff [place] [facility] [place] [id number] Patient Name: JODI BOSTON MRN: [id number] date: 1995 Sex: F Assigned Patient Location: [facility] Current Patient Location: Accession/Order Number: [id number] Exam Date: 03/29/2024 14:39 Report Date: 03/30/2024 16:24 At the request of: JANKI BOURGEOIS Procedure: US pelvis w/ transvaginal EXAMINATION: US pelvis w/ transvaginal HISTORY: MENORRHAGIA COMPARISON: No relevant comparison available. FINDINGS: Transabdominal and transvaginal images The uterus is normal in size, contour and echotexture measuring 8.6 x 3.4x 5.3 cm, anteverted, anteflexed. No focal myometrial mass The endometrium measures 7 mm, normal The right ovary is normal measuring 3.3 x 2.2 x 3.2 cm. Normal color and Doppler flow. The left ovary is normal measuring 2.3 x 1.8 x 1.7 cm. Normal color and Doppler flow US/US pelvis w/ transvaginal IMPRESSION: Normal exam Electronically authenticated by: ALEJANDRA CARR Date: 03/30/2024 16:24 Dictated By: Alejandra Carr M.D. Signed By:03/30/24 1627 DD/ 1624 TD/TT: Striper Machine: us Janki Christelle DO [facility] Final Result documented in this encounter Visit Diagnoses Not on filedocumented in this encounter Care Teams Laborer Plumbing Relationship Specialty Start Date End Date Jeri Eller PA [address] [place] [address] Dr [place] [id number] PCP - Medical [employer] 06/19/22 10/06/24 documented as of this encounter
--- OUTSIDE RECORDS SUMMARY | 2024-12-26 20:51 | XMS_ITS | Encounter Summary ---
Author Organization [facility] tem Address [facility]-[id number] [address] [place] [address] Care Team Providers Care Supervisor Boilermaking Shop Name Role Phone Carlos A Moreno DO Primary Care Provider [phone] Encounter Details Date Type Department Care Team (Late st Contact Info) Description 09/26/2024 Orders Only [facility] Internal Medicine - Family Medicine [address] [place] [address] Carlos A Moreno DO [address] [place] [address] Wilfred thyroiditis (Primary Dx) Social History Tobacco Use Types [...] declined 05/01/2020 How often do you attend yarsanism or yazdanism serv ices? Patient declined 05/01/2020 Do you belong to any clubs o r organizations such as yarsanism groups, unions, fraternal or athletic groups, or [...] 08/24/2024 PHQ-2 Answer Date Recorded Total Score 6 07/18/2024 [facility] Occupat ional Health - [...] needed for daily living? Patient declined 08/24/2024 [place] Depression Scale Answer Date Recorded [place] Depression Scale Total 6 05/02/2020 The thought [...] Recorded Do you need help finding a [facility] career [facility] and/or a training program? No 05/01/2020 Hunger Screening Answer Date Recorded Within the past 12 months we worried whether our food would run out before we got money to buy more. Never True 025 Within the past 12 months th e food we bought just didn't last and we didn't have money to get more. Patient Declined 11/2024 Purpose - Life Answer Date Recorded Purpose and direction in life Unknown Comments No Sex and Gender Information Value Date Recorded Sex Assigned at Not on file Legal Sex Female 11:52 AM EDT Gender Identity Not on file Sexual Orientation Not on file documented as of this encounter Plan of Treatment Not on file documented as of this encounter Results * T4, free (09/27/2024 1:35 PM EDT) T4, free 0.92 0.61 - 1.60 ng/dL 09/27/2024 6:59 PM EDT [facility] Blood (PLASMA) 09/27/2024 1: 35 PM EDT 09/27/2024 1:36 PM EDT us Carlos [facility] LAB BLOOD ORDERABLES Final Resul t Performing Organization Address [facility] Co de Phone Number [facility] [address] [place] [id number] * TSH (09/27/2024 1:35 PM EDT) TSH 2.01 0.49 - 4.67 uIU/mL 09/27/2024 6:57 PM EDT [facility] Blood (PLASMA) 09/27/2024 1: 35 PM EDT 09/27/2024 1:36 PM EDT Carlos A Carpio [employer] LAB BLOOD ORDERABLES Final Resul t Performing Organization Address City/[facility] Co de Phone Number [facility] [address] [place] [address], [address] [address] documented in this encounter Visit Diagnoses Diagnosis Wilfred thyroiditis- Primary Chronic lymphocytic thyroiditis documented in this encounter Additional Health Concerns Assessment Noted Time PHQ-9 Depression Total Score: 6 07/18/20 24 2:57 PM EST A Body Mass Index follow-up plan has been documented for the patient 02/21/2022 9:54 AM EDT documented as of this encounter Care Teams Supervisor Boilermaking Shop Relationship Specialty Start Date End Date Carlos A Moreno DO [address] [place] [address] PCP - General Internal Medicine 07/15/24 documented as of this encounter
--- OUTSIDE RECORDS SUMMARY | 2024-12-26 20:51 | XMS_ITS | Encounter Summary ---
Author Organization [facility] tem Address [facility][id number] [address] [place] [address] Care Team Providers Care Sub Arc Operator Name Role Phone Carlos A Moreno DO Primary Care Provider Encounter Details Date Type Department Care Team (Late st Contact Info) Description 07/28/2024 Orders Only [facility] Internal Medicine - Family Medicine [address] [place] [address] Carlos A Moreno DO [address] [place] [address] Abnormal bruising (Primary Dx) Social History Tobacco Use Types [...] declined 05/01/2020 How often do you attend islam or sabianist serv ices? Patient declined 05/01/2020 Do you belong to any clubs o r organizations such as islam groups, unions, fraternal or athletic groups, or [...] needed for daily living? Patient declined 05/01/2020 [place] Depression Scale Answer Date Recorded [place] Depression Scale Total 6 05/02/2020 The thought of harming myself has occurred to me . Never 05/02/2020 Childcare Answer Date Recorded Do problems getting child ca re make it difficult for you to work or study? No 05/01/2020 Employment Answer Date Recorded Do you need help finding a l ocal career center and/or a training program? No [...] documented as of this encounter Results * Fibrinogen (07/29/2024 4:09 PM EST) Fibrinogen 294 190 - 480 mg/dL 07/29/2024 9:20 PM EST [facility] Blood (PLASMA) 07/29/2024 4: 09 PM EST 07/29/2024 4:10 PM EST us Carlos A Moreno DO LAB BLOOD ORDERABLES Final Resul t Performing Organization Address City/State/[facility] Co de Phone Number [employer] [address], [address] [place] [address] documented in this encounter Visit Diagnoses Diagnosis Abnormal bruising- Primary Other symptoms involving skin and integumentary tissues documented in this encounter Additional Health Concerns Assessment Noted Time PHQ-9 Depression Total Score: 6 07/18/20 24 2:57 PM EST A Body Mass Index follow-up plan has been documented for the patient 02/21/2022 9:54 AM EDT documented as of this encounter Care Teams Sub Arc Operator Relationship Specialty Start Date End Date Carlos A Moreno DO [address] [place] [address] PCP - General Internal Medicine 07/15/24 documented as of this encounter
--- OUTSIDE RECORDS SUMMARY | 2024-12-26 20:51 | XMS_ITS | Encounter Summary ---
Author Organization [facility] tem Address [facility]-[id number] [address] [place] [address] Care Team Providers Care Clinical Social Work Aide Name Role Phone Carlos A Moreno DO Primary Care Provider [phone] Encounter Details Date Type Department Care Team (Late st Contact Info) Description 08/29/2024 Orders Only [facility] Internal Medicine - Family Medicine [address] [place] [address] Carlos A Moreno DO [address] [place] [address] Acute viral bronchitis (Primary Dx) Social History Tobacco Use Types [...] declined 05/01/2020 How often do you attend rastafarian or baptist serv ices? Patient declined 05/01/2020 Do you belong to any clubs o r organizations such as rastafarian groups, unions, fraternal or athletic groups, or [...] Answer Date Recorded Total Score 6 07/18/2024 [facility] of Occupat ional Health - Occupational [...] needed for daily living? Patient declined 08/24/2024 [place] Depression Scale Answer Date Recorded [place] Depression Scale Total 6 05/02/2020 The thought [...] Recorded Do you need help finding a [facility] career [facility] and/or a training program? No [...] of this encounter Visit Diagnoses Diagnosis Acute viral bronchitis- Primary documented in this encounter Additional Health Concerns Assessment Noted Time PHQ-9 Depression Total Score: 6 07/18/20 24 2:57 PM EST A Body Mass Index follow-up plan has been documented for the patient 02/21/2022 9:54 AM EDT documented as of this encounter Care Teams Clinical Social Work Aide Relationship Specialty Start Date End Date Carlos A Moreno DO [address] [place] [address] PCP - General Internal Medicine 07/15/24 documented as of this encounter
--- OUTSIDE RECORDS SUMMARY | 2024-12-26 20:51 | XMS_ITS | Encounter Summary ---
Author Organization [facility] Address [address] [place] [address] Care Team Providers Care Nozzle Worker Name Role Phone Jeri Eller Unavailable Encounter Details Date Type Department Care Team (Late st Contact Info) Description 09/01/2023 Abstract [facility] [address] [place] [address] Joyce Guaman LPN [address] [facility] Yen HERNANDEZ [facility]11 Social History Tobacco Use Types Packs/Day Years [...] 01/01/2026 1:00 PM EDT Office Visit [facility] [address] [place] [address] Timothy Bourgeois [address] [place], [place] [id number] documented as of this encounter Visit Diagnoses Not on filedocumented in this encounter Care Teams Nozzle Worker Relationship Specialty Start Date End Date Jeri Eller PA [address] [place] [address] [place] [address] PCP - Medical [place] [employer] 06/19/22 10/06/24 documented as of this encounter
--- OUTSIDE RECORDS SUMMARY | 2024-12-26 20:51 | XMS_ITS | Encounter Summary ---
Author Organization [email or web address] tem Address [facility][id number] [address] [place] [address] Care Team Providers Care Court Messenger Name Role Phone Carlos A Moreno DO Primary Care Provider [phone] Encounter Details Date Type Department Care Team (Late st Contact Info) Description 10/27/2024 Telephone [facility] Internal Medicine - Family Medicine [address] [place] [address] Lisa Martinez CMA Social History Tobacco Use Types Packs/Day [...] declined 05/01/2020 How often do you attend scientology or presybeterian serv ices? Patient declined 05/01/2020 Do you belong to any clubs o r organizations such as scientology groups, unions, fraternal or athletic groups, or [...] Answer Date Recorded Total Score 6 07/18/2024 [facility] Answer Date Recorded [...] needed for daily living? Patient declined 08/24/2024 [place] Depression Scale Answer Date Recorded [place] Depression Scale Total 6 05/02/2020 The thought [...] Recorded Do you need help finding a [facility] career center and/or a training program? [...] encounter Miscellaneous Notes * Telephone Encounter - Lisa Martinez CMA - 10/27/2024 10:55 AM EDT Patient called and states she had a Panic Attack over a Month ago. Her body still has not fully recovered from that. Could you send in a muscle relaxer or something to help with this? I see nothing available. * Telephone Encounter - Carlos A Moreno DO - 10/27/2024 10:55 AM EDT Message noted. Patient contacted through direct messaging documented in this encounter Plan of Treatment Not on file documented as of this encounter Visit Diagnoses Not on filedocumented in this encounter Additional Health Concerns Assessment Noted Time PHQ-9 Depression Total Score: 6 07/18/20 24 2:57 PM EST A Body Mass Index follow-up plan has been documented for the patient 02/21/2022 9:54 AM EDT documented as of this encounter Care Teams Court Messenger Relationship Specialty Start Date End Date Carlos A Moreno DO [address] [place] [address] PCP - General Internal Medicine 07/15/24 documented as of this encounter
--- OUTSIDE RECORDS SUMMARY | 2024-12-26 20:51 | XMS_ITS | Encounter Summary ---
Author Organization [facility] Address [address] [place] [address] Care Team Providers Care Stage Electrician Helper Name Role Phone DaphnieJeri Unavailable Encounter Details Date Type Department Care Team (Late st Contact Info) Description 10/30/2023 Clinisync Result Encounter [facility] External Department Unsolicited Janki oBurgeois, [address] [place], [place] [id number] Social History Tobacco Use Types Packs/Day Years [...] Visit [facility] OB [address] [place] [address] Janki Bourgeois DO [facility] [address] [place], [place] [id number] documented as of this encounter Procedures Procedure Name Priority Date/Time Associated Diagnosis Comments US OB BPP W NON-STRESS 10/30/2023 3:17 PM EDT documented in this encounter Results * US OB BPP W NON-STRESS (10/30/2023 3:17 PM EDT) Anatomical Region Laterality Modality Other 10/30/2023 3:17 PM EDT Narrative 10/30/2023 3:20 [place] [address] Ultrasound Report Signed Patient: JODI BOSTON MR#: [id number] : 1995 Acct:[id number] Age/Sex: 28 / F ADM Date: 10/30/23 Loc: [facility] 250-[address]: Janki Bourgeois D.O. Ordering Physician: Janki Bourgeois D.O. Date of Service: 10/30/23 Procedure(s): US OB BPP w non-stress Accession Number(s): [id number] cc: Janki Bourgeois D.O.; Physician,Non-Staff [place] [id number] Patient Name: JODI BOSTON MRN: [id number] date: 1995 Sex: F Assigned Patient Location: [facility] Current Patient Location: [facility] Accession/Order Number: [id number] Exam Date: 10/30/2023 14:02 Report Date: 10/30/2023 15:17 At the request of: JANKI BOURGEOIS Procedure: US OB BPP w non-stress EXAMINATION: US OB BPP w non-stress HISTORY: Excessive growth O36.63X0 COMPARISON: Ultrasound OB growth 10/20/2023 TECHNIQUE: Ultrasound biophysical profile was performed in the radiology department. BREATHING MOVEMENTS: 0.0 GROSS BODY MOVEMENTS: 2.0 TONE: 2.0 QUALITATIVE AMNIOTIC FLUID VOLUME: 2.0 PRESENTATION: CEPHALIC HEART RATE: 130.4 bpm bpm. AMNIOTIC FLUID VOLUME: 22.2 cm GESTATIONAL AGE: 38 weeks 3 days CONCLUSION: Total biophysical profile score 6.0. Electronically authenticated by: SHADI FLORES Date: 10/30/2023 15:17 Dictated By: Shadi Flores M.D. Signed By: 10/30/23 152 DD/ 16 TD/TT: Warehouse Clerk: Procedure Note Radiology, Radiologist, MD - 10/30/2023 [place] [address] Ultrasound Report Signed Patient: JODI BOSTON AMR#: [id number] : 1995Acct:[id number] Age/Sex: 28 / FADM Date: 10/30/23 Loc: [facility] 250-[address]: Janki Bourgeois D.O. Ordering Physician: Janki Bourgeois D.O. Date of Service: 10/30/23 Procedure(s): US OB BPP w non-stress Accession Number(s): [id number] cc: Janki Bourgeois D.O.; Physician,Non-Staff [place] [address] Patient Name: JODI BOSTON MRN: [facility]:[id number] date: 1995 Sex: F Assigned Patient Location: [facility] Current Patient Location: [facility] Accession/Order Number: [id number] Exam Date: 10/30/2023 14:02 Report Date: 10/30/2023 15:17 At the request of: JANKI BOURGEOIS Procedure: US OB BPP w non-stress EXAMINATION: US OB BPP w non-stress HISTORY: Excessive growth O36.63X0 COMPARISON: Ultrasound OB growth 10/20/2023 TECHNIQUE: Ultrasound biophysical profile was performed in the radiology department. BREATHING MOVEMENTS: 0.0 GROSS BODY MOVEMENTS: 2.0 TONE: 2.0 QUALITATIVE AMNIOTIC FLUID VOLUME: 2.0 PRESENTATION: CEPHALIC HEART RATE: 130.4 bpm bpm. AMNIOTIC FLUID VOLUME: 22.2 cm GESTATIONAL AGE: 38 weeks 3 days CONCLUSION: Total biophysical profile score 6.0. Electronically authenticated by: SHADI FLORES Date: 10/30/2023 15:17 Dictated By: Shadi Flores M.D. Signed By:10/30/231519 DD/ 16 TD/TT: Warehouse Clerk: us Janki Christelle DO [facility] Final Result documented in this encounter Visit Diagnoses Not on filedocumented in this encounter Care Teams Stage Electrician Helper Relationship Specialty Start Date End Date Jeri Eller PA [address] [place] [address] PCP - Medical [place] [employer] 06/19/22 10/06/24 documented as of this encounter
--- OUTSIDE RECORDS SUMMARY | 2024-12-26 20:51 | XMS_ITS | Encounter Summary ---
Author Organization [facility] Address [id number] [address] [place] [address] Care Team Providers Care Performing Arts Road Manager Name Role Phone Carlos A Moreno DO Primary Care Provider [phone] Encounter Details Date Type Department Care Team (Late st Contact Info) Description 07/05/2020 Telephone [facility] Col[facility] [address] [place] [address] Jeri Goodwin CMA Social History Tobacco Use Types Packs/Day [...] declined 05/01/2020 How often do you attend zoroastrianism or jainism serv ices? Patient declined 05/01/2020 Do you belong to any clubs o r organizations such as zoroastrianism groups, unions, fraternal or athletic groups, or [...] Answer Date Recorded Total Score 0 05/01/2020 [facility] of Occupat ional [facility] - Occupational Stress Questionnaire Answer Date [...] needed for daily living? Patient declined 05/01/2020 [place] Depression Scale Answer Date Recorded [place] Depression Scale Total 6 05/02/2020 The thought of harming myself has occurred to me . Never 05/02/2020 Childcare Answer Date Recorded Do problems getting child ca re make it difficult for you to work or study? No 05/01/2020 Employment Answer Date Recorded Do you need help finding a [employer] career center and/or a training program? No 05/01/2020 Comments No Sex and Gender Information Value Date Recorded Sex Assigned at Not on file Legal Sex Female 11:52 AM EDT Gender Identity Not on file Sexual Orientation Not on file COVID-19 Exposure Response Date Recorded In the last month, have you been in contact with someone who was confirmed or suspected to have Coronavirus / COVID-19? No / Unsure 07/05/2020 1:18 PM EST documented as of this encounter Miscellaneous Notes * Telephone Encounter - Jeri Goodwin CMA - 07/05/2020 1:24 PM EST Eloy called she has a follow up scheduled for 07/16, she is in a lot of pain. She has been takingher pain medication. She has not had a bowel movement since before her surgery and has been taking colace. She said she has a baby that weighs 13 lbs. And she did go back to work. She would like valium and I did reititterate to her do not drink any alcohol. * Telephone Encounter - Rita Lakhani MD - 07/05/2020 1:24 PM EST Done. She can not breast feed with valium. documented in this encounter Plan of Treatment Not on file documented as of this encounter Visit Diagnoses Not on filedocumented in this encounter Additional Health Concerns Infection Onset Date Last Indicated Resolved Time Respiratory Rule-Out 06/21/2021 06/21/2021 021 10:20 AM EST Assessment Noted Time PHQ-9 Depression Total Score: 0 05/01/20 20 3:47 AM EDT documented as of this encounter Care Teams Performing Arts Road Manager Relationship Specialty Start Date End Date Carlos A Moreno DO [address] [place] [address] PCP - General Internal Medicine 07/15/24 documented as of this encounter
--- OUTSIDE RECORDS SUMMARY | 2024-12-26 20:51 | XMS_ITS | Encounter Summary ---
Author Organization [facility] tem Address [id number] [address] [place] [address] Care Team Providers Care Ground Crewman Mission Support Name Role Phone Carlos A Moreno DO Primary Care Provider [phone] Encounter Details Date Type Department Care Team (Late st Contact Info) Description 10/31/2024 Orders Only [facility] - Family Medicine [address] [place] [address] Carlos A Moreno DO [address] [place] [address] Lumbar spine pain (Primary Dx) Social History Tobacco Use Types [...] How often do you attend scientologist or protestant serv ices? Patient declined 05/01/2020 Do you [...] Answer Date Recorded Total Score 6 07/18/2024 [facility] of Occupat ional Health [...] needed for daily living? Patient declined 08/24/2024 [place] Depression Scale Answer Date Recorded [place] Depression Scale Total 6 05/02/2020 The thought [...] Recorded Do you need help finding a [facility] career center and/or a training program? No [...] as of this encounter Visit Diagnoses Diagnosis Lumbar spine pain- Primary documented in this encounter Additional Health Concerns Assessment Noted Time PHQ-9 Depression Total Score: 6 07/18/20 24 2:57 PM EST A Body Mass Index follow-up plan has been documented for the patient 02/21/2022 9:54 AM EDT documented as of this encounter Care Teams Ground Crewman Mission Support Relationship Specialty Start Date End Date Carlos A Moreno DO [address] [place] [address] PCP - General Internal Medicine 07/15/24 documented as of this encounter
--- OUTSIDE RECORDS SUMMARY | 2024-12-26 20:51 | XMS_ITS | Encounter Summary ---
Author Organization [facility] tem Address [id number] [address] [place] [address] Care Team Providers Care Ship Pilot Dispatcher Name Role Phone Carlos A Moreno DO Primary Care Provider [phone] Encounter Details Date Type Department Care Team (Late st Contact Info) Description 10/05/2024 Orders Only [facility] Medicine - Family Medicine [address] [place] [address] Carlos A Moreno DO [address] [place] [address] Social History Tobacco Use Types Packs/Day Years [...] declined 05/01/2020 How often do you attend anglican or sikh serv ices? Patient declined 05/01/2020 Do you belong to any clubs o r organizations such as anglican groups, unions, fraternal or athletic groups, or [...] Answer Date Recorded Total Score 6 07/18/2024 [facility] of Occupat ional [facility] - Occupational Stress Questionnaire Answer Date Recorded [...] needed for daily living? Patient declined 08/24/2024 [place] Depression Scale Answer Date Recorded [place] Depression Scale Total 6 05/02/2020 The thought [...] Recorded Do you need help finding a [employer] career center and/or a training program? [...] documented as of this encounter Care Teams Ship Pilot Dispatcher Relationship Specialty Start Date End Date Carlos A Moreno DO [address] [place] [address] PCP - General Internal Medicine 07/15/24 documented as of this encounter
--- OUTSIDE RECORDS SUMMARY | 2024-12-26 20:51 | XMS_ITS | Encounter Summary ---
Author Organization [employer] Address [id number] [address] [place] [address] Care Team Providers Care Vice President Of Instruction Name Role Phone Carlos A Moreno DO Primary Care Provider [phone] Encounter Details Date Type Department Care Team (Late st Contact Info) Description 07/06/2020 Telephone [facility] [address] [facility] [address] [place] [address] Alisson Powell LPN Social History Tobacco Use Types Packs/Day Years [...] declined 05/01/2020 How often do you attend presybeterian or church serv ices? Patient declined 05/01/2020 Do you belong to any clubs o r organizations such as presybeterian groups, unions, fraternal or athletic groups, or [...] Answer Date Recorded Total Score 0 05/01/2020 [facility] - Occupational Stress Questionnaire Answer Date [...] needed for daily living? Patient declined 05/01/2020 [place]gway Depression Scale Answer Date Recorded [place] Depression Scale Total 6 05/02/2020 The thought of harming myself has occurred to me . Never 05/02/2020 Childcare Answer Date Recorded Do problems getting child ca re make it difficult for you to work or study? No 05/01/2020 Employment Answer Date Recorded Do you need help finding a [employer] career center and/or a training program? No [...] encounter Miscellaneous Notes * Telephone Encounter - Alisson Powell LPN - 07/06/2020 9:53 AM EST Patient called stating the valium did nothing but make her tired, so she quit taking it. She statedshe is in horrible pain. She stated she did finally have a bowel movement this morning, which was very painful. She is wondering what else she can use or do. She is a working single mother of a (less than 10 weeks old) who is concerned about her bills. 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 Should we suggest a letter for light duty or anything similar to her? She never gave us FMLA papers or anything similar. Alisson Powell LPN 07/06/20 0958 Alisson Powell LPN 07/06/20 0959 * Telephone Encounter - Rita Lakhani MD - 07/06/2020 9:53 AM EST SHe can do light duty or time off. 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 She stated that her mom is her boss, but did ask us to fax over a light duty form to [employer] f: [phone]. She did ask her mom for help at home with her baby. She is asking if the percocet can be sent electronically as she livesabout an hour away, doesn't want to take the baby out in the cold, and isn't sure if someone else can pickle processor the script by 4:15pm today. Alisson Powell LPN 07/06/20 1043 * Telephone Encounter - Rita Lakhani MD - 07/06/2020 9:53 AM EST Already sent electronically documented in this encounter Plan of Treatment Not on file documented as of this encounter Visit Diagnoses Not on filedocumented in this encounter Additional Health Concerns Infection Onset Date Last Indicated Resolved Time Respiratory Rule-Out 06/21/2021 06/21/2021 021 10:20 AM EST Assessment Noted Time PHQ-9 Depression Total Score: 0 05/01/20 20 3:47 AM EDT documented as of this encounter Care Teams Vice President Of Instruction Relationship Specialty Start Date End Date Carlos A Moreno DO [address] [place] [id number] PCP - General Internal Medicine 07/15/24 documented as of this encounter
--- OUTSIDE RECORDS SUMMARY | 2024-12-26 20:51 | XMS_ITS | Encounter Summary ---
Author Organization [facility] Address [id number] [address] [place] [address] Care Team Providers Care Indoor Landscaper/Gardener Name Role Phone Carlos A Moreno DO Primary Care Provider [phone] Encounter Details Date Type Department Care Team (Late st Contact Info) Description 07/06/2020 Orders Only [facility] [address] [place] [address] [address] [place] [address] [place] [address] [place] [address], [address] [place], [place] [id number] Postoperative pain (Primary Dx) Social History Tobacco Use [...] declined 05/01/2020 How often do you attend voodoo or protestant serv ices? Patient declined 05/01/2020 Do you belong to any clubs o r organizations such as voodoo groups, unions, fraternal or athletic groups, or [...] Answer Date Recorded Total Score 0 05/01/2020 [facility] - Occupational [...] needed for daily living? Patient declined 05/01/2020 Lawrence Depression Scale Answer Date Recorded [place] Depression Scale Total 6 05/02/2020 The thought of harming myself has occurred to me . Never 05/02/2020 Childcare Answer Date Recorded Do problems getting child ca re make it difficult for you to work or study? No 05/01/2020 Employment Answer Date Recorded Do you need help finding a [employer] career center and/or a training program? [...] as of this encounter Visit Diagnoses Diagnosis Postoperative pain- Primary Other acute postoperative pain documented in this encounter Additional Health Concerns Infection Onset Date Last Indicated Resolved Time Respiratory Rule-Out 06/21/2021 06/21/2021 021 10:20 AM EST Assessment Noted Time PHQ-9 Depression Total Score: 0 05/01/20 3:47 AM EDT documented as of this encounter Care Teams Indoor Landscaper/Gardener Relationship Specialty Start Date End Date Carlos A Moreno DO [address] [place] [address] PCP - General Internal Medicine 07/15/24 documented as of this encounter
--- OUTSIDE RECORDS SUMMARY | 2024-12-26 20:51 | XMS_ITS | Encounter Summary ---
Author Organization [facility] Address [id number] [address] [place] [address] Care Team Providers Care Voice And Data Technician Name Role Phone Carlos A Moreno DO Primary Care Provider [phone] Encounter Details Date Type Department Care Team (Late st Contact Info) Description 07/05/2020 Orders Only [facility] [address] [place] [address] [address] [place] [address] [place] [address] [place] [address], [address] [place], [place] [phone] Postoperative pain (Primary Dx) Social History Tobacco [...] declined 05/01/2020 How often do you attend druze or temple serv ices? Patient declined 05/01/2020 Do you belong to any clubs o r organizations such as druze groups, unions, fraternal or athletic groups, or [...] Answer Date Recorded Total Score 0 05/01/2020 [facility] - Occupational [...] needed for daily living? Patient declined 05/01/2020 [place] Depression Scale Answer Date Recorded [place] Depression Scale Total 6 05/02/2020 The thought of harming myself has occurred to me . Never 05/02/2020 Childcare Answer Date Recorded Do problems getting child ca re make it difficult for you to work or study? No 05/01/2020 Employment Answer Date Recorded Do you need help finding a [employer] career center and/or a training program? [...] documented as of this encounter Care Teams Voice And Data Technician Relationship Specialty Start Date End Date Carlos A Moreno DO [address] [place] [address] PCP - General Internal Medicine 07/15/24 documented as of this encounter
--- OUTSIDE RECORDS SUMMARY | 2024-12-26 20:51 | XMS_ITS | Encounter Summary ---
Author Organization [facility] Address [address] [place] [address] Care Team Providers Care Garden Equipment Mechanic Name Role Phone Jeri Eller Unavailable Encounter Details Date Type Department Care Team (Late st Contact Info) Description 02/09/2024 Abstract [facility] [address] [facility] [place] [address] Timothy Bourgeois [facility] [address] [place] [id number] Social History Tobacco Use Types Packs/Day Years [...] 01/01/2026 1:00 PM EDT Office Visit [facility] [address] [place] [address] Timothy Bourgeois DO [facility] [place] [address] documented as of this encounter Visit Diagnoses Not on filedocumented in this encounter Care Teams Garden Equipment Mechanic Relationship Specialty Start Date End Date Jeri Eller PA [address] [place] [address] [place] [address] PCP - Medical [place] [employer] 06/19/22 10/06/24 documented as of this encounter
--- OUTSIDE RECORDS SUMMARY | 2024-12-26 20:51 | XMS_ITS | Encounter Summary ---
Author Organization [facility] Address [address] [facility] [place] [address] Care Team Providers Care Mapping Technician Name Role Phone Jeri Eller Unavailable Encounter Details Date Type Department Care Team (Late st Contact Info) Description 11/03/2023 Abstract [facility] [address] [facility] [place] [address] Yris Charlton LPN Social History Tobacco Use Types Packs/Day [...] 01/01/2026 1:00 PM EDT Office Visit [facility] [address] [facility] [place] [address] Timothy Bourgeois DO [address] [place], [place] [phone] documented as of this encounter Visit Diagnoses Not on filedocumented in this encounter Care Teams Mapping Technician Relationship Specialty Start Date End Date Jeri Eller PA [address] [place], [place] [phone] PCP - Medical [place] [employer] 06/19/22 10/06/24 documented as of this encounter
--- OUTSIDE RECORDS SUMMARY | 2024-12-26 20:51 | XMS_ITS | Encounter Summary ---
Author Organization [facility] Address [address] [place] [address] Care Team Providers Care Economic Specialist Name Role Phone DaphnieJeri Unavailable Encounter Details Date Type Department Care Team (Late st Contact Info) Description 09/21/2023 Clinisync Result Encounter [facility] External Department Unsolicited Janki Bourgeois, [address] [place], [place] [phone] Social History Tobacco Use Types Packs/Day Years [...] EDT Office Visit [facility] [address] [facility] [place] [address] Janki Bourgeois DO [facility] [address] [place], [place] [phone] documented as of this encounter Procedures Procedure Name Priority Date/Time Associated Diagnosis Comments US OB GROWTH 09/21/2023 7:16 AM EST documented in this encounter Results * US OB GROWTH (09/21/2023 7:16 AM EST) Anatomical Region Laterality Modality Other 09/21/2023 7:16 AM EST Narrative 09/21/2023 7:19 [place] [address] Ultrasound Report Signed Patient: JODI BOSTON MR#: [id number] : 1995 Acct:[id number] Age/Sex: 28 / F ADM Date: 09/19/23 Loc: US Attending Dr: Janki Bourgeois D.O. Ordering Physician: Janki Bourgeois D.O. Date of Service: 09/19/23 Procedure(s): US OB growth Accession Number(s): [id number] cc: Janki Bourgeois D.O.; Physician,Non-Staff [place] [address] [place] [address] Patient Name: JODI BOSTON MRN: [id number] date: 1995 Sex: F Assigned Patient Location: Current Patient Location: Accession/Order Number: [id number] Exam Date: 09/19/2023 11:05 Report Date: 09/21/2023 07:16 At the request of: JANKI BOURGEOIS Procedure: US OB growth EXAMINATION: US OB growth HISTORY: LGA COMPARISON: No relevant comparison available. FINDINGS: Heart Rate: 136.4 bpm Amniotic Fluid Volume: 15.9 cm Number: 1.0 Position: cephalic Maximum Vertical Pocket: 5.9 cm cm 3.3 cm cm 3.9 cm cm 2.9 cm cm BIOMETRY: BPD: 8.4 cm cm; 33 weeks 6 days; 79% HC: 31.5 cmcm; 35 weeks 2 days , 83% AC: 30.1 cm cm; 34 weeks 1 days, 88% FL: 6.4 cm cm; 33 weeks 1 days; 54.8 % % EFW: 2312.2 grams, 5 lbs. 2 oz., 82% FL/AC: 21.3 FL/BPD: 76.5 HC/AC: 1.0 GESTATIONAL AGE: Age by EDC: 32 weeks 4 days URIAH by EDC: 11/10/2023 Age by US: 34 weeks 1 day URIAH by US: 10/30/2023 US/US OB growth IMPRESSION: Normal interval growth Electronically authenticated by: ALEJANDRA CARR Date: 09/21/2023 07:16 Dictated By: Alejandra Carr M.D. Signed By: 09/21/23718 DD/ 5 TD/TT: Tour Driver: Procedure Note Radiology, Radiologist, MD - 09/22/2023 [place] [address] Ultrasound Report Signed Patient: JODI BOSTON AMR#: [id number] : 1995Acct:[id number] Age/Sex: 28 / FADM Date: 09/19/23 Loc: US Attending Dr: Janki Bourgeois D.O. Ordering Physician: Janki Bourgeois D.O. Date of Service: 09/19/23 Procedure(s): US OB growth Accession Number(s): [id number] cc: Janki Bourgeois D.O.; Physician,Non-Staff [place] [address] [place] [id number] Patient Name: JODI BOSTON MRN: [id number] date: 1995 Sex: F Assigned Patient Location: US Current Patient Location: Accession/Order Number: [id number] Exam Date: 09/19/2023 11:05 Report Date: 09/21/2023 07:16 At the request of: JANKI BOURGEOIS Procedure: US OB growth EXAMINATION: US OB growth HISTORY: LGA COMPARISON: No relevant comparison available. FINDINGS: Heart Rate: 136.4 bpm Amniotic Fluid Volume: 15.9 cm Number: 1.0 Position: cephalic Maximum Vertical Pocket: 5.9 cm cm 3.3 cm cm 3.9 cm cm 2.9 cm cm BIOMETRY: BPD: 8.4 cm cm; 33 weeks 6 days; 79% HC: 31.5 cmcm; 35 weeks 2 days , 83% AC: 30.1 cm cm; 34 weeks 1 days, 88% FL: 6.4 cm cm; 33 weeks 1 days; 54.8 % % EFW: 2312.2 grams, 5 lbs. 2 oz., 82% FL/AC: 21.3 FL/BPD: 76.5 HC/AC: 1.0 GESTATIONAL AGE: Age by EDC: 32 weeks 4 days URIAH by EDC: 11/10/2023 Age by US: 34 weeks 1 day URIAH by US: 10/30/2023 US/US OB growth IMPRESSION: Normal interval growth Electronically authenticated by: ALEJANDRA CARR Date: 09/21/2023 07:16 Dictated By: Alejandra Carr M.D. Signed By:09/21/23718 DD/ 5 TD/TT: Tour Driver: us Janki Christelle DO [facility] Final Result documented in this encounter Visit Diagnoses Not on filedocumented in this encounter Care Teams Economic Specialist Relationship Specialty Start Date End Date Jeri Eller PA [address] [place] [address] [place] [address] PCP - Medical [place] [employer] 06/19/22 10/06/24 documented as of this encounter
--- OUTSIDE RECORDS SUMMARY | 2024-12-26 20:51 | XMS_ITS | Encounter Summary ---
Author Organization [facility] Address [address] [place] [address] Care Team Providers Care Turret Punch Press Operator Name Role Phone Jeri Eller Unavailable Encounter Details Date Type Department Care Team (Late st Contact Info) Description 09/01/2023 Abstract [facility] [address] [email or web address] [place] [place] [address] Joyce Guaman LPN [address] [employer] [facility] Yen HERNANDEZ [id number] Social History Tobacco Use Types Packs/Day Years [...] 01/01/2026 1:00 PM EDT Office Visit [facility] [address] [email or web address] [place] [place] [address] Timothy Bourgeois [address] [facility] [address] [place], [place] [id number] documented as of this encounter Visit Diagnoses Not on filedocumented in this encounter Care Teams Turret Punch Press Operator Relationship Specialty Start Date End Date Jeri Eller PA [address] [place] [address] [place] [address] PCP - Medical [place] [employer] 06/19/22 10/06/24 documented as of this encounter
--- OUTSIDE RECORDS SUMMARY | 2024-12-26 20:51 | XMS_ITS | Encounter Summary ---
Author Organization [facility] Address [id number] [address] [place] [address] Care Team Providers Care Manager Mac Name Role Phone Carlos A Moreno DO Primary Care Provider [phone] Encounter Details Date Type Department Care Team (Late st Contact Info) Description 09/26/2024 [facility]phone [facility] [address] [place] [address] Carlos A Moreno DO [address] [place] [address] Social History Tobacco Use Types Packs/Day Years [...] declined 05/01/2020 How often do you attend nondenominational or catholic serv ices? Patient declined 05/01/2020 Do you belong to any clubs o r organizations such as nondenominational groups, unions, fraternal or athletic groups, or [...] Answer Date Recorded Total Score 6 07/18/2024 [facility] - Occupational Stress Questionnaire Answer Date [...] needed for daily living? Patient declined 08/24/2024 [place] Depression Scale Answer Date Recorded Gilson Depression Scale Total 6 05/02/2020 The thought [...] Recorded Do you need help finding a [employer] career center and/or a training program? [...] encounter Miscellaneous Notes * Telephone Encounter - Carlos A Moreno DO - 09/26/2024 10:09 AM EDT ----- Message from Dr. Carlos A Moreno DO sent at 07/31/2024 1:18 PM EST ----- Needs repeat thyroid function testing due to Wilfred's * Telephone Encounter - Lisa Martinez CMA - 09/26/2024 10:09 AM EDT I called and let her know. documented in this encounter Plan of Treatment Not on file documented as of this encounter Visit Diagnoses Not on filedocumented in this encounter Additional Health Concerns Assessment Noted Time PHQ-9 Depression Total Score: 6 07/18/20 24 2:57 PM EST A Body Mass Index follow-up plan has been documented for the patient 02/21/2022 9:54 AM EDT documented as of this encounter Care Teams Manager Mac Relationship Specialty Start Date End Date Carlos A Moreno DO [address] [place] [address] PCP - General Internal Medicine 07/15/24 documented as of this encounter
--- OUTSIDE RECORDS SUMMARY | 2024-12-26 21:04 | XMS_ITS | CCD ---
Author Organization [facility] Care Team Providers Care Oreman Name Role Phone Mani Roxane Morenoca Unavailable ROXANE BEASLEYECCA Unavailable Unavail able MARI CROWELL Unavailable Unavailable HENRI PULLIAM Unavailable UnavailROXANE Kelly LEVI Unavailable Unavail able HENRI PULLIAM Unavailable Unavailabl norm BEASLEY, ROXANE LEVI Unavailable Unavail able SOLIS FRENCH Unavailable Unavailable Physician, No PCP Unavailable Unavailable YANETH RADFORD Unavailable Unavailable Physician, No PCP Unavailable Unavailable Ernestine Mckeon Unavailable Unavailable DARY BLACK I Referring Unavailable DARY BLACK I Referring Unavailable Unavailable Primary Care Provider UnavailJeri Ruiz Unavailable Greta Brand DO Primary Care Provider [phone] JERI FOREMAN Referring Unavailable PAUHAS, GRETA L Primary Care Unavailable PAUHAS, GRETA L Attending Unavailable PAUHAS, GRETA L Referring Unavailable YUHAS, GRETA L Primary Care Unavailable HOLLYSGRETA L Attending Unavailable HOLLYS, GRETA L Referring Unavailable YUHAS, GRETA L Primary Care Unavailable YUHAS, GRETA L Referring Unavailable YUHAS, GRETA L Primary Care Unavailable YUHAS, GRETA L Referring Unavailable YUHAS, GRETA L Primary Care Unavailable Yuhas Greta BAIN Primary Care Provider GRETA BRAND L Referring Unavailable YUHAS, GRETA L Primary Care Unavailable YUHAS, GRETA L Referring Unavailable YUHAS, GRETA L Primary Care Unavailable YUHAS, GRETA L Attending Unavailable YUHAS, GRETA L Primary Care Unavailable YUHAS, GRETA L Attending Unavailable YUHAS, GRETA L Referring Unavailable YUHAS, GRETA L Primary Care Unavailable YUHAS, GRETA L Attending Unavailable YUHAS, GRETA L Referring Unavailable GRETA BRAND Primary Care Unavailable GRETA BRAND Referring Unavailable GRETA BRAND Primary Care Unavailable EAGLE MYERS Attending Unavailable Allergies Allergy Classification Reported Allergen(s) Allergy Type Date of Onset Reaction(s) Facility (13 sources) Latex; Translations: [LATEX] Propensity to adverse reactions 9 Rash [facility] Work Phone: (17 sources) Prochlorperazin e; Translations: [PROCHLORPERAZI NE] Drug Allergy 8 Abnormal Behavior [facility] (4 sources) Latex Propensity to adverse reactions to drug 9 [facility] Medications Current Medications Medication Drug Class(es) Dates Sig (Normalized) Sig (Original) baclofen 10 mg oral tablet (2 sources) gamma-Aminobutyr ic Acid-ergic Agonist Start: 10-31-2024 take 0.5 tablet by mouth twice daily as needed for muscle spasms baclofen (LIORESAL) 10 mg tablet Indications: Lumbar spine pain Take 0.5 tablets (5 mg total) by mouth 2 (two) times a day as needed for muscle spasms. 20 tablet 10/31/2024 Active cetirizine hydrochloride 10 mg oral tablet (13 sources) Histamine-1 Receptor Antagonist cetirizine (ZyrTEC) 10 MG tablet Indications: Seasonal Allergic Rhinitis Take 10 mg by mouth if needed for allergies Active cholecalciferol 0.125 mg oral capsule (12 sources) Vitamin D take 1 capsule by mouth once daily cholecalciferol (Vitamin D-3) 125 MCG (5000 UT) capsule Take 5,000 Units by mouth Daily Active End: 11-10-2024 take 1 capsule by mouth in the morning cholecalciferol, vitamin D3, (VITAMIN D3) 5,000 units capsule Take 1 capsule (5,000 Units total) by mouth in the morning. 11/10/2024 Discontinued (Patient Stopped On Own) citalopram 20 mg oral tablet (18 sources) Serotonin Reuptake Inhibitor Start: 11-29-2024 take 1 tablet by mouth in the morning citalopram (CeleXA) 20 mg tablet Indications: Persistent depressive disorder Take 1 tablet (20 mg total) by mouth in the morning. 90 tablet 1 11/29/2024 Active Start: 04-21-2024 End: 08-31-2024 take 1 tablet by mouth once daily citalopram (CeleXA) 40 MG tablet Indications: depression (CMS/HCC) , Anxiety, generalized (CMS/HCC) Take 1 tablet (40 mg) by mouth Daily 30 tablet 11 08/29/2024 Active Start: 02-29-2024 End: 02-28-2025 take 2 tablets by mouth once daily citalopram (CeleXA) 20 MG tablet Indications: depression (CMS/HCC) Take 2 tablets (40 mg) by mouth Daily 30 tablet 11 02/29/2024 02/28/2025 Active Start: 02-08-2024 End: 08-06-2024 take 1 tablet by mouth once daily citalopram (CeleXA) 20 MG tablet Indications: depression (CMS/HCC) Take 1 tablet (20 mg) by mouth Daily 30 tablet 5 02/08/2024 08/06/2024 Active Start: 08-05-2023 End: 11-13-2023 take 0.5 tablet by mouth once in the morning citalopram (CeleXA) 20 MG tablet Indications: Anemia during in second trimester Take 0.5 tablets (10 mg) by mouth in the morning. 50 tablet 0 08/05/2023 11/13/2023 Active COMPLETE GER DHA 29 mg iro n- 1 mg-200 mg combo pack (4 sources) Start: 03-05-2023 COMPLETE DHA 29 mg iron- 1 mg-200 mg combo pack 03/05/2023 Active Start: 03-05-2023 COMPLETE GER DHA 29 mg iron- 1 mg-200 mg combo pack TAKE 1 TABLET AND 1 CAPSULE ONCE DAILY 03/05/2023 Active docusate sodium 100 mg oral capsule (1 source) Start: 08-05-2023 take 1 capsule by mouth twice daily as needed for constipation docusate sodium (Colace) 100 MG capsule Indications: Constipation, unspecified constipation type Take 1 capsule (100 mg) by mouth 2 (two) times a day as needed for constipation 30 capsule 5 08/05/2023 Active [id number] 0.3 ml EPINEPHrine 1 mg/ml auto-injector (4 [...] subdermal implant by Subdermal route once. Active fluticasone propionate 0.05 mg/actuat metered dose nasal spray (13 sources) Corticosteroid Start: 12-14-2024 take 2 spray(s) nasal route in the morning fluticasone propionate (FLONASE) 50 mcg/actuation nasal spray Indications: Seasonal allergies Administer 2 sprays into each nostril in the morning. 15.8 mL 12/14/2024 Active fluticasone (Partha nase) 50 MCG/ACT nasal spray Indications: Nasal Congestion Administer 1 spray into each nostril if needed for rhinitis Shake gently. Before first use, prime pump. After use, clean tip and replace cap. Active End: 11-10-2024 fluticasone propionate (FLON ASE) 50 mcg/actuation nasal spray 1 spray. 11/10/2024 Discontinued (Patient Stopped On Own) ibuprofen 200 mg oral tablet (12 sources) Nonsteroidal Anti-inflammatory Drug End: 11-10-2024 ibuprofen 200 MG tablet Take by mouth Active lactobacillus acidophilus (1 source) Lactobacillus acidophilus (PROBIOTIC ORAL) Indications: Fortify, 30 Billion Take by mouth. Active magic mouthwash susp equal parts viscous lidocaine 2%, diphenhydramine 12.5mg/5mL, maalox [id number]/5m L (1 source) Start: 12-27-2017 End: 12-30-2017 magic mouthwash susp equal parts viscous lidocaine 2%, diphenhydramine 12.5mg/5mL, maalox 416mr-[id number]-[id number]/5m L Swish and spit 5 mL every 6 (six) hours as needed. 180 mL 0 12/27/2017 12/30/2017 Active norethindrone 0.35 mg oral tablet (4 sources) Start: 03-28-2024 End: 03-28-2025 take 1 tablet by mouth once daily norethindrone (Micronor) 0.35 MG tablet Indications: Menorrhagia with regular cycle Take 1 tablet (0.35 mg) by mouth Daily 28 tablet 11 03/28/2024 08/01/2024 Discontinued olopatadine 1 mg/ml ophthalmic solution (1 source) Histamine-1 Receptor Inhibitor Start: 12-14-2024 take 1 drop(s) into the eye(s) in the morning olopatadine (PATANOL) 0.1 % ophthalmic solution Indications: Seasonal allergies Administer 1 drop to the right eye in the morning and 1 drop before bedtime. 5 mL 12/14/2024 Active omeprazole 20 mg delayed release oral capsule (3 sources) Proton Pump Inhibitor Start: 12-01-2016 take 11 capsules by mouth once daily omeprazole (PRILOSEC) 20 MG capsule TK ONE C PO QD 11 12/01/2016 Active oseltamivir 75 mg oral capsule (1 source) Neuraminidase Inhibitor Start: 08-24-2024 take 1 capsule by mouth in the morning, then take 1 capsule by mouth at bedtime oseltamivir (TAMIFLU) 75 mg capsule Indications: Influenza A Take 1 capsule (75 mg total) by mouth in the morning and 1 capsule (75 mg total) before bedtime. 10 capsule 08/24/2024 Active polymyxin b 22015 unt/ml / trimethoprim 1 mg/ml ophthalmic solution (1 source) Dihydrofolate Reductase Inhibitor Antibacterial, Polymyxin-class Antibacterial Start: 12-14-2024 End: 12-24-2024 trimethoprim-polymy marley B (POLYTRIM) 10,000 unit- 1 mg/mL drops Indications: Acute conjunctivitis of right eye, unspecified acute conjunctivitis type Administer 1 drop to both eyes 6 (six) times a day for 10 days. 10 mL 12/14/2024 12/24/2024 Active polysaccharide iron complex 391 mg oral capsule (1 source) Start: 08-05-2023 End: 08-04-2024 take 1 capsule by mouth in the morning iron polysaccharides (ProFe) 391.3 (180 Fe) MG capsule Indications: Tired Take 1 capsule (391.3 mg) by mouth in the morning. 360 capsule 0 08/05/2023 08/04/2024 Active Ztwczi-IrMvb-EzJto- FA-CA-[place] (Complete DHA) 29-1-200 & 200 MG misc (1 source) Start: 03-05-2023 Ozvzni-PsUvi-NuHwq- FA-CA-[place] (Complete DHA) 29-1-200 & 200 MG misc TAKE 1 TABLET AND 1 CAPSULE ONCE DAILY 0 03/05/2023 Active w/o A Vit-Fe Fum-FA (AzesChew /) 13-1 MG chewable tablet (9 sources) w/o A Vit-Fe Fum-FA (AzesChew /) 13-1 MG chewable tablet Chew 1 each Daily Active tiZANidine 4 mg oral capsule (2 sources) Central alpha-2 Adrenergic Agonist Start: 05-08-2017 End: 05-13-2017 take 1 capsule by mouth three times [...] Problem Date Documented Date Episodic/Chronic Anxiety disorders (10 sources) Panic disorder; Translations: [Anxiety] Onset: 08-17-2015 08-17-2015 Chronic Attention-deficit, conduct, and disruptive behavior disorders (1 source) Adult attention deficit hyperactivity disorder ; Translations: [ADD (attention deficit disorder)] Onset: 08-17-2015 08-17-2015 Chronic Attention-deficit, conduct, and disruptive behavior disorders (2 sources) Attention deficit hyperactivity disorder; Translations: [Attention-deficit hyperactivity disorder, unspecified type] 07-18-2024 Chronic Coagulation and hemorrhagic disorders (1 source) Spontaneous ecchymoses; Translations: [Spontaneous ecchymoses] Onset: 07-29-2024 Episodic Deficiency and other anemia (1 source) Iron deficiency anemia secondary to inadequate dietary iron intake; Translations: [Other iron deficiency anemias] 07-18-2024 Episodic Deficiency and other anemia (1 source) Anemia, unspecified; Translations: [Anemia, unspecified] Onset: 07-15-2024 Episodic Disorders usually diagnosed in infancy childhood or adolescence (2 sources) Other specified behavioral and emotional disorders with onset usually occurring in childhood and adolescence; Translations: [ADD (attention deficit disorder)] Onset: 08-17-2015 08-17-2015 Chronic Inflammation; infection of eye (except that caused by tuberculosis or sexually transmitteddisease) (3 sources) Acute conjunctivitis of right eye; Translations: [Unspecified acute conjunctivitis, right eye] Onset: 12-14-2024 12-14-2024 Episodic Influenza (1 source) Influenza due to Influenza A virus; Translations: [Influenza due to other identified influenza virus with other respiratory manifestations] 08-24-2024 Episodic Miscellaneous mental health disorders (15 sources) depression; Translations: [ depression] Onset: 03-14-2024 03-14-2024 Episodic Mood disorders (2 sources) Dysthymic disorder; Translations: [Dysthymic disorder] 07-18-2024 Chronic Nonmalignant breast conditions (3 sources) Unspecified lump in the right breast, unspecified quadrant; Translations: [Mass of breast, right] Onset: 08-07-2016 08-07-2016 Other aftercare (2 sources) Patient encounter status; Translations: [Other long-term (current) drug therapy] 08-01-2024 Episodic Other upper respiratory disease (1 source) Seasonal allergy; Translations: [Other seasonal allergic rhinitis] 12-14-2024 Chronic Other upper respiratory disease (1 source) Other seasonal allergic rhinitis; Translations: [Other seasonal allergic rhinitis] Onset: 12-14-2024 Chronic Other upper respiratory infections (2 sources) Acute pharyngitis, unspecified; Translations: [Acute pharyngitis, unspecified] Onset: 12-27-2017 Episodic Spondylosis; intervertebral disc disorders; other back problems (3 sources) Sacroiliitis, not elsewhere classified; Translations: [Sacroiliitis, not elsewhere classified] Onset: 11-10-2024 11-10-2024 Chronic Substance-related disorders (3 sources) Cannabis abuse; Translations: [Marijuana abuse] Onset: 08-17-2015 08-17-2015 Chronic Thyroid disorders (5 sources) Autoimmune thyroiditis; Translations: [Hypothyroidism, unspecified] Onset: 07-29-2024 11-10-2024 Chronic Unclassified (1 source) Unknown / UNK(Unknown) Onset: 11-20-2017 Unclassified (2 sources) Low back pain, unspecified; Translations: [Low back pain, unspecified] Onset: 07-18-2024 Unclassified (1 source) Thyroid check Onset: 11-10-2024 Unclassified (1 source) New Patient Onset: 07-18-2024 Viral infection (2 sources) Viral infection, unspecified; Translations: [Viral infection, unspecified] Onset: 12-27-2017 Episodic Past or Other Problems Problem Classification Problem Date Documented Date Episodic/Chronic Deficiency and other anemia (7 sources) Iron deficiency anemia; Translations: [Iron deficiency anemia, unspecified] Onset: 08-17-2015 08-17-2015 Episodic Deficiency and other anemia (4 sources) Megaloblastic anemia due to decreased intake of vitamin B>12<; Translations: [Other vitamin B12 deficiency anemias] Onset: 03-23-2020 05-02-2020 Episodic Deficiency and other anemia (2 sources) Other iron deficiency anemias; Translations: [Other iron deficiency anemias] Onset: 05-02-2020 Episodic Gastritis and duodenitis (3 sources) Gastritis; Translations: [Gastritis] Onset: 08-17-2015 08-17-2015 Episodic Headache; including migraine (10 sources) Cluster headache; Translations: [Migraine] Onset: 08-17-2015 Resolved: 05-02-2020 08-17-2015 Chronic Headache; including migraine (3 sources) Headache; Translations: [Headache] Onset: 05-07-2017 Episodic Mood disorders (4 sources) Mood disorders Onset: 07-18-2024 Resolved: 11-10-2024 07-18-2024 Other connective tissue disease (2 sources) Other muscle spasm; Translations: [Other muscle spasm] Onset: 05-08-2017 Episodic Other connective tissue disease (1 source) Muscle spasm of cervical muscle of neck Episodic Other connective tissue disease (5 sources) Fibromyalgia; Translations: [Fibromyalgia] Onset: 07-19-2020 07-18-2024 Episodic Other connective tissue disease (2 sources) Fibromyalgia; Translations: [Fibromyalgia] Onset: 07-19-2020 Episodic Other non-traumatic joint disorders (4 sources) Hypermobility of joint; Translations: [Joint derangement, unspecified] Onset: 07-19-2020 07-19-2020 Episodic Residual codes; unclassified (4 sources) Family history of breast cancer; Translations: [Family history of malignant neoplasm of breast] Onset: 02-21-2022 02-21-2022 Episodic Spondylosis; intervertebral disc disorders; other back problems (4 sources) Pain in lumbar spine ; Translations: [Lumbar spine pain] Onset: 07-18-2024 07-18-2024 Episodic Unclassified (1 source) VOMITING LOW IRON HEAVY PERIOD Onset: 11-21-2017 Unclassified (4 sources) Onset: 02-21-2022 02-21-2022 Results Test Name Value Interpretation Reference Range Facility ESR Photometric method (Bld) [Velocity]on 11-10-2024 ESR, ERYTHROCYTE SEDIMENTATION RATE 6 mm/h Normal 0-20 [facility] Comment on above: Performed By: #### 8 2477-1, 89386-6 #### [facility] ([id number]) [address], [address] [place] [address] HLA-B27 FC Ql (Bld/Tiss)on 0 11-10-2024 HLA-B27 TYPING Negative Normal NEG [facility] Comment on above: Performed By: #### 8 2477-1, 92437-1 #### [facility] ([id number]) [address], [facility] [address] [place] [address] FREE T4on 09-27-2024 Free T4 [Mass/Vol] 0.92 ng/dL Normal 0.61-1.60 [facility] Comment on above: Performed By: #### 3 016-3, 3024-7 #### [facility] ([id number]) [address], [address] [place] [address] TSH Qnon 09-27-2024 TSH 2.01 uIU/mL Normal 0.49-4.67 [facility] Comment on above: Performed By: #### 3 016-3, 3024-7 #### [facility] ([id number]) [address], [address] [place] [address] Fibrinogen Coagulation.deriv ed (PPP) [Mass/Vol]on 07-29-2024 FIBRINOGEN 294 mg/dL Normal 190-480 [facility] Comment on above: Performed By: #### 4 8664-7, 3053-6, THYRAB #### [facility] ([id number]) [address], [address] [place] [address] T3 [Mass/Vol]on 07-29-2024 TOTAL T3 (TT3) 179 ng/dL High 87-178 [facility] Comment on above: Performed By: #### 4 8664-7, 3053-6, THYRAB #### [facility] ([id number]) [address], [address] [place] [address] THYROID ANTIBODIESon 025 Thyroglobulin Ab Qn 8 [IU]/mL High <4.[address] [facility] Comment on above: Performed By: #### 4 8664-7, 3053-6, THYRAB #### [facility] ([id number]) [address], [address] [place] [address] TPO Ab Qn 585 [IU]/mL High <10 [facility] Comment on above: Performed By: #### 4 8664-7, 3053-6, THYRAB #### [facility] ([id number]) [address], [address] [place] [address] XR SPINE CERVICAL 3 VWS OR L ESSon 07-19-2024 XR SPINE CERVICAL 3 VWS OR LESS XR SPINE CERVICAL 3 VWS OR LESS XR SPINE CERVICAL 3 VWS OR LESS INDICATION: Cervical spine pain. FINDINGS: Satisfactory alignment of the cervical spine. The vertebral body heights and intervertebral disc space heights are well-preserved. No fracture malalignment. The atlantoaxial space is within normal limits. Posterior elements intact IMPRESSION: 1. Unremarkable cervical spine radiographs. Finalized by Saurabh Rocha MD on 07/19/2024 2:19 PM Normal [facility] XR SPINE LUMBAR 2 OR 3 VWSon 07-19-2024 XR SPINE LUMBAR 2 OR 3 VWS XR SPINE LUMBAR 2 OR 3 VWS Indication: Back pain. TECHNIQUE: Frontal, lateral, and coned-down lateral views of lumbar spine are obtained with no prior comparison. FINDINGS: Mild left convexity thoracolumbar scoliosis is present. 5 lumbar type vertebral bodies noted. Vertebral body heights and alignment otherwise well-maintained. Mild degenerative disc narrowing L5-S1. Mild appearing facet degenerative change greatest at L5-S1. IMPRESSION: 1. Mild appearing degenerative changes greatest at L5-S1. Finalized by Ariela Lackey MD on 07/19/2024 2:15 PM Normal [facility] CBC AND AUTO DIFFon 07-18-20 ABSOLUTE BASOPHIL 0.0 X10E9/L Normal 0.0-0.2 [facility] Comment on above: Performed By: #### C BCA, CMP, FEPR, TSHR, 80424-4, 3024-7, 77396-4 #### [facility] ([id number]) [address], [address] [place] [address] ABSOLUTE NEUTROPHIL 4.4 X10E9/L Normal 1.5-6.6 [facility] Comment on above: Performed By: #### C BCA, CMP, FEPR, TSHR, 35700-5, 3024-7, 28966-9 #### [facility] ([id number]) [address], [address] [place] [address] Basophils/100 WBC (Bld) 0.3 % Normal [facility] Comment on above: Performed By: #### C BCA, CMP, FEPR, TSHR, 76130-5, 3024-7, 31436-5 #### [facility] ([id number]) [address], [address] [place] [address] Eosinophils (Bld) [#/Vol] 0.0 10*3/uL Normal 0.0-0.4 [facility] Comment on above: Performed By: #### C BCA, CMP, FEPR, TSHR, 93365-0, 3024-7, 58036-1 #### [facility] ([id number]) [address], [address] [place] [address] Eosinophils/100 WBC (Bld) 0.7 % Normal [facility] Comment on above: Performed By: #### C BCA, CMP, FEPR, TSHR, 53280-5, 3024-7, 70079-2 #### [facility] ([id number]) [address], [facility] [address] [place] [address] Erythrocyte distribution width (RBC) [Ratio] 14.1 % Normal 11.5-15.0 [facility] Comment on above: Performed By: #### C BCA, CMP, FEPR, TSHR, 99122-9, 3024-7, 90779-8 #### [facility] ([id number]) [address], [facility] [address] [place] [address] Hematocrit (Bld) [Volume fraction] 40.6 % Normal 35-47 [facility] Comment on above: Performed By: #### C BCA, CMP, FEPR, TSHR, 48555-3, 3024-7, 44348-5 #### [facility] ([id number]) [address], [facility] [address] [place] [address] Hemoglobin (Bld) [Mass/Vol] 13.4 g/dL Normal 11.7-15.5 [facility] Comment on above: Performed By: #### C BCA, CMP, FEPR, TSHR, 76006-2, 3024-7, 02173-4 #### [facility] ([id number]) [address] [address] [place] [address] Lymphocytes (Bld) [#/Vol] 1.8 10*3/uL Normal 1.0-3.5 [facility] Comment on above: Performed By: #### C BCA, CMP, FEPR, TSHR, 08216-4, 3024-7, 83808-4 #### [facility] ([id number]) [address], [address] [place] [address] Lymphocytes/100 WBC (Bld) 27.2 % Normal [facility] Comment on above: Performed By: #### C BCA, CMP, FEPR, TSHR, 41530-1, 3024-7, 84076-6 #### [facility] ([id number]) [address], [address] [place] [address] MCH (RBC) [Entitic mass] 30.8 pg Normal 27-34 [facility] Comment on above: Performed By: #### C BCA, CMP, FEPR, TSHR, 18499-4, 3024-7, 19757-0 #### [facility] ([id number]) [address], [address] [place] [address] MCHC (RBC) [Mass/Vol] 33.1 g/dL Normal 32-36 [facility] Comment on above: Performed By: #### C BCA, CMP, FEPR, TSHR, 55014-9, 3024-7, 72740-5 #### [facility] ([id number]) [address], [address] [place] [address] MCV (RBC) [Entitic vol] 93 fL Normal 80-100 [facility] Comment on above: Performed By: #### C BCA, CMP, FEPR, TSHR, 79846-0, 3024-7, 74738-5 #### [facility] ([id number]) [address], [address] [place] [address] Monocytes (Bld) [#/Vol] 0.5 10*3/uL Normal 0-0.9 [facility] Comment on above: Performed By: #### C BCA, CMP, FEPR, TSHR, 40325-2, 3024-7, 84276-9 #### [facility] ([id number]) [address], [address] [place] [address] Monocytes/100 WBC (Bld) 6.7 % Normal [facility] Comment on above: Performed By: #### C BCA, CMP, FEPR, TSHR, 20273-1, 3024-7, 22374-0 #### [facility] ([id number]) [address], [address] [place] [address] Neutrophils/100 WBC (Bld) 65.1 % Normal [facility] Comment on above: Performed By: #### C BCA, CMP, FEPR, TSHR, 95197-0, 3024-7, 18287-6 #### [facility] ([id number]) [address], [facility] [address] [place] [address] Platelet mean volume (Bld) [Entitic vol] 9.5 fL Normal 7-12 [facility] Comment on above: Performed By: #### C BCA, CMP, FEPR, TSHR, 32007-3, 3024-7, 92753-1 #### [facility] ([id number]) [address], [facility] [address] [place] [address] Platelets (Bld) [#/Vol] 243 10*3/uL Normal 150-450 [facility] Comment on above: Performed By: #### C BCA, CMP, FEPR, TSHR, 05588-0, 3024-7, 62443-7 #### [facility] ([id number]) [address], [address] [place] [address] RBC COUNT 4.36 X10E12/L Normal 3.80-5.20 [facility] Comment on above: Performed By: #### C BCA, CMP, FEPR, TSHR, 21889-1, 3024-7, 77499-1 #### [facility] ([id number]) [address] [address] [place] [address] WBC (Bld) [#/Vol] 6.7 10*3/uL Normal 4.0-11.0 [facility] Comment on above: Performed By: #### C BCA, CMP, FEPR, TSHR, 60251-8, 3024-7, 44505-0 #### [facility] ([id number]) [address], [address] [place] [address] COMPREHENSIVE METABOLIC PANE Rodrigo 07-18-2024 Albumin [Mass/Vol] 4.6 g/dL Normal 3.2-5.3 [facility] Comment on above: Performed By: #### C BCA, CMP, FEPR, TSHR, 80083-8, 3024-7, 95868-2 #### [facility] ([id number]) [address], [address] [place] [address] ALP [Catalytic activity/Vol] 59 U/L Normal 39-130 [facility] Comment on above: Performed By: #### C BCA, CMP, FEPR, TSHR, 75216-1, 3024-7, 64272-2 #### [facility] ([id number]) [address], [address] [place] [address] ALT [Catalytic activity/Vol] 17 U/L Normal 0-31 [facility] Comment on above: Performed By: #### C BCA, CMP, FEPR, TSHR, 02721-7, 3024-7, 29630-8 #### [facility] ([id number]) [address], [address] [place] [address] Anion gap [Moles/Vol] 7 mmol/L Normal 5-15 [facility] Comment on above: Performed By: #### C BCA, CMP, FEPR, TSHR, 00179-9, 3024-7, 21866-8 #### [facility] ([id number]) [address], [address] [place] [address] AST [Catalytic activity/Vol] 16 U/L Normal 0-41 [facility] Comment on above: Performed By: #### C BCA, CMP, FEPR, TSHR, 29458-7, 3024-7, 45913-0 #### [facility] ([id number]) [address], [address] [place] [address] Bilirubin [Mass/Vol] 0.4 mg/dL Normal 0.3-1.2 [facility] Comment on above: Performed By: #### C BCA, CMP, FEPR, TSHR, 66372-2, 3024-7, 72006-2 #### [facility] ([id number]) [address], [address] [place] [address] Calcium [Mass/Vol] 9.1 mg/dL Normal 8.5-10.5 [facility] Comment on above: Performed By: #### C BCA, CMP, FEPR, TSHR, 44634-8, 3024-7, 05362-9 #### [facility] ([id number]) [address], [address] [place] [address] Chloride [Moles/Vol] 105 mmol/L Normal 98-109 [facility] Comment on above: Performed By: #### C BCA, CMP, FEPR, TSHR, 86239-7, 3024-7, 93436-0 #### [facility] ([id number]) [address], [address] [place] [address] CO2 [Moles/Vol] 28 mmol/L Normal 22-32 [facility] Comment on above: Performed By: #### C BCA, CMP, FEPR, TSHR, 08052-8, 3024-7, 73456-3 #### [facility] ([id number]) [address], [address] [place] [address] Creatinine [Mass/Vol] 0.53 mg/dL Normal 0.40-1.00 [facility] Comment on above: Result Comment: METH OD TRACEABLE TO IDMS STANDARD Performed By: #### C BCA, CMP, FEPR, TSHR, 42227-4, 3024-7, 65419-5 #### [facility] ([id number]) [address], [facility] [address] [place] [address] eGFR (CKD-EPI) NON-RACE DEPENDENT >90 Normal >59 [facility] Comment on above: Result Comment: Reported eGFR is based on the CKD-EPI 2020 equation that does not use a race coefficient. Performed By: #### C BCA, CMP, FEPR, TSHR, 60946-5, 3024-7, 89764-3 #### [facility] ([id number]) [address], [facility] [address] [place] [address] Glucose [Mass/Vol] 88 mg/dL Normal 65-99 [facility] Comment on above: Performed By: #### C BCA, CMP, FEPR, TSHR, 30320-4, 3024-7, 98917-5 #### [facility] ([id number]) [address] [address] [place] [address] Potassium [Moles/Vol] 4.0 mmol/L Normal 3.5-5.0 [facility] Comment on above: Performed By: #### C BCA, CMP, FEPR, TSHR, 04016-9, 3024-7, 66102-0 #### [facility] ([id number]) [address] [address] [place] [address] Protein [Mass/Vol] 7.0 g/dL Normal 6.0-8.0 [facility] Comment on above: Performed By: #### C BCA, CMP, FEPR, TSHR, 70457-0, 3024-7, 26873-1 #### [facility] ([id number]) [address] [address] [place] [address] Sodium [Moles/Vol] 140 mmol/L Normal 134-146 [facility] Comment on above: Performed By: #### C BCA, CMP, FEPR, TSHR, 59831-7, 3024-7, 25842-8 #### [facility] ([id number]) [address], [address] [place] [address] Urea nitrogen [Mass/Vol] 21 mg/dL Normal 5-23 [facility] Comment on above: Performed By: #### C BCA, CMP, FEPR, TSHR, 52388-6, 3024-7, 33237-3 #### [facility] ([id number]) [address], [address] [place] [address] ESR Photometric method (Bld) [Velocity]on 07-18-2024 ESR, ERYTHROCYTE SEDIMENTATION RATE 6 mm/h Normal 0-20 [facility] Comment on above: Performed By: #### C BCA, CMP, FEPR, TSHR, 47042-5, 3024-7, 54334-8 #### [facility] ([id number]) [address], [address] [place] [address] FREE T4on 07-18-2024 Free T4 [Mass/Vol] 0.74 ng/dL Normal 0.61-1.60 [facility] Comment on above: Performed By: #### C BCA, CMP, FEPR, TSHR, 50413-1, 3024-7, 95388-5 #### [facility] ([id number]) [address], [address] [place] [address] IRON PROFILEon 07-18-2024 Iron [Mass/Vol] 119 ug/dL Normal 50-170 [facility] Comment on above: Performed By: #### C BCA, CMP, FEPR, TSHR, 44563-9, 3024-7, 90849-6 #### [facility] ([id number]) [address], [address] [place] [address] IRON BINDING 354 ug/dL Normal 250-425 [facility] Comment on above: Performed By: #### C BCA, CMP, FEPR, TSHR, 52538-3, 3024-7, 79294-1 #### [facility] ([id number]) [address] [address] IRON SATURATION 34 % SATURATION Normal 15-50 [facility] Comment on above: Performed By: #### C BCA, CMP, FEPR, TSHR, 91511-8, 3024-7, 66928-9 #### [facility] ([id number]) [address], [address] [address] Nuclear Ab IA Ql (S)on 07-18 [place] Screen w/reflex Negative Normal NEG [facility] Comment on above: Result Comment: Testing performed using multiplex flow immunoassay. Eleven different antigens associated with systemic autoimmune diseases (dsDNA,Sm,Sm/[employer] SUPERVISOR,[employer]CH [employer]IST[employer] SUPERVISOR,Chromatin, SSA,SSB,Luz-1,Scl70,Ribo P,Centromere B) are included in this screening test. Performed By: #### C BCA, CMP, FEPR, TSHR, 47511-9, 3024-7, 68610-3 #### [facility] ([id number]) [address] [address] TSH WITH REFLEXon 07-18-2024 TSH 4.90 uIU/mL High 0.49-4.67 [facility] Comment on above: Performed By: #### C BCA, CMP, FEPR, TSHR, 90754-5, 3024-7, 50833-7 #### [facility] ([id number]) [address], [address] [place] [address] APTTon 07-15-2024 aPTT Coag (Bld) [Time] 32 s [facility] Comment on above: NEW REFERENCE RANGE PERFORMED AT [address] [place] [address] The copy-to physician of this order is GRETA Randall ; , ; CBC AND AUTO DIFFon 07-15-20 24 ABSOLUTE BASOPHIL 0.1 X10E9/L Normal 0.0-0.2 [facility] Comment on above: Performed By: #### 1 4979-9 #### [facility] ([id number]) [address] [place] [address] #### CBCLuis, PINR #### [facility] ([id number]) [address], [address] [place] [address] ABSOLUTE NEUTROPHIL 3.6 X10E9/L Normal 1.5-6.6 [facility] Comment on above: Performed By: #### 1 4979-9 #### [facility] ([id number]) [address] [place] [address] #### MAURICE, PINR #### [facility] ([id number]) [address], [address] [place] [address] Basophils/100 WBC (Bld) 1.6 % Normal [facility] Comment on above: Performed By: #### 1 4979-9 #### [facility] ([id number]) [address] [place] [address] #### CBCLuis, PINR #### [facility] ([id number]) [address], [address] [place] [address] Eosinophils (Bld) [#/Vol] 0.0 10*3/uL Normal 0.0-0.4 [facility] Comment on above: Performed By: #### 1 4979-9 #### [facility] ([id number]) [address] [place] [address] #### CBCA, PINR #### [facility] ([id number]) [address], [address] [place] [address] Eosinophils/100 WBC (Bld) 0.7 % Normal [facility] Comment on above: Performed By: #### 1 4979-9 #### [facility] ([id number]) [address] [place] [address] #### CBCA, PINR #### [facility] ([id number]) [address] [facility] [place] [address] Erythrocyte distribution width (RBC) [Ratio] 14.0 % Normal 11.5-15.0 [facility] Comment on above: Performed By: #### 1 4979-9 #### [facility] ([id number]) [address] [place] [address] #### CBCA, PINR #### [facility] ([id number]) [address] [facility] [facility] [place] [address] Hematocrit (Bld) [Volume fraction] 39.8 % Normal 35-47 [facility] Comment on above: Performed By: #### 1 4979-9 #### [facility] ([id number]) [address] [place] [address] #### CBCA, PINR #### [facility] ([id number]) [address] [facility] [facility] [place] [address] Hemoglobin (Bld) [Mass/Vol] 13.5 g/dL Normal 11.7-15.5 [facility] Comment on above: Performed By: #### 1 4979-9 #### [facility] ([id number]) [address] [place] [address] #### CBCA, PINR #### [facility] ([id number]) [address] [facility], [address] [place] [address] Lymphocytes (Bld) [#/Vol] 1.8 10*3/uL Normal 1.0-3.5 [facility] Comment on above: Performed By: #### 1 4979-9 #### [facility] ([id number]) [address] [place] [address] #### CBCA, PINR #### [facility] ([id number]) [address], [address] [place] [address] Lymphocytes/100 WBC (Bld) 30.6 % Normal [facility] Comment on above: Performed By: #### 1 4979-9 #### [facility] ([id number]) [address] [place] [address] #### CBCA, PINR #### [facility] ([id number]) [address], [address] [place] [address] MCH (RBC) [Entitic mass] 31.3 pg Normal 27-34 [facility] Comment on above: Performed By: #### 1 4979-9 #### [facility] ([id number]) [address] [place] [address] #### CBCA, PINR #### [facility] ([id number]) [address], [address] [place] [address] MCHC (RBC) [Mass/Vol] 33.8 g/dL Normal 32-36 [facility] Comment on above: Performed By: #### 1 4979-9 #### [facility] ([id number]) [address] [place] [address] #### CBCA, PINR #### [facility] ([id number]) [address] [place] [address] MCV (RBC) [Entitic vol] 93 fL Normal 80-100 [facility] Comment on above: Performed By: #### 1 4979-9 #### [facility] ([id number]) [address] [place] [address] #### CBCA, PINR #### [facility] ([id number]) [address], [address] [place] [address] Monocytes (Bld) [#/Vol] 0.4 10*3/uL Normal 0-0.9 [facility] Comment on above: Performed By: #### 1 4979-9 #### [facility] ([id number]) [address] [place] [address] #### CBCA, PINR #### [facility] ([id number]) [address], [address] [place] [address] Monocytes/100 WBC (Bld) 7.4 % Normal [facility] Comment on above: Performed By: #### 1 4979-9 #### [facility] ([id number]) [address] [place] [address] #### CBCA, PINR #### [facility] ([id number]) [address], [address] [place] [address] Neutrophils/100 WBC (Bld) 59.7 % Normal [facility] Comment on above: Performed By: #### 1 4979-9 #### [facility] ([id number]) [address] [place] [address] #### CBCA, PINR #### [facility] ([id number]) [address], [address] [place] [address] Platelet mean volume (Bld) [Entitic vol] 9.4 fL Normal 7-12 [facility] Comment on above: Performed By: #### 1 4979-9 #### [facility] ([id number]) [address] [place] [address] #### CBCA, PINR #### [facility] ([id number]) [address], [address] [place] [address] Platelets (Bld) [#/Vol] 241 10*3/uL Normal 150-450 [facility] Comment on above: Performed By: #### 1 4979-9 #### [facility] ([id number]) [address] [place] [address] #### CBCA, PINR #### [facility] ([id number]) [address] [facility] [facility] [place] [address] RBC COUNT 4.29 X10E12/L Normal 3.80-5.20 [facility] Comment on above: Performed By: #### 1 4979-9 #### [facility] ([id number]) [address] [place] [address] #### CBCA, PINR #### [facility] ([id number]) [address] [facility], [address] [place] [address] WBC (Bld) [#/Vol] 6.0 10*3/uL Normal 4.0-11.0 [facility] Comment on above: Performed By: #### 1 4979-9 #### [facility] ([id number]) [address] [place] [address] #### CBCA, PINR #### [facility] ([id number]) [address] [facility], [address] [place] [address] PROTIME AND INRon 07-15-2024 INR Coag (PPP) [Relative time] 1.0 {INR} Normal 0.8-1.1 [facility] Comment on above: Performed By: #### 1 4979-9 #### [facility] ([id number]) [address] [place] [address] #### CBCA, PINR #### [facility] ([id number]) [address] [facility], [address] [place] [address] PT Coag (PPP) [Time] 11.1 s Normal 9.8-13.2 [facility] Comment on above: Performed By: #### 1 4979-9 #### [facility] ([id number]) [address] [place] [address] #### CBCA, PINR #### [facility] ([id number]) [address] [facility], [address] [place] [address] aPTT Coag (Bld) [Time]on [facility] aPTT Coag (PPP) [Time]on aPTT Coag (Bld) [Time] 32 s Normal 26-37 [facility] Comment on above: Result Comment: NEW REFERENCE RANGE Performed By: #### 1 4979-9 #### [facility] ([id number]) [address] [place] [address] #### CBCA, PINR #### [facility] ([id number]) [address] [facility], [address] [place] [address] ALL CBC WITH AUTO DIFFon BASOPHILS ABSOLUTE AUTO 0.0 [facility] Basophils/100 WBC (Bld) 0.1 % Low 0.2 - 2.0 % [facility] Eosinophils/100 WBC (Bld) 0.4 % Low 0.9 - 7.0 % [facility] Erythrocyte distribution width (RBC) [Ratio] 13.4 % 11.0 - 15.0 % [facility] Hematocrit (Bld) [Volume fraction] 29.5 % Low 36.0 - 48.0 % [facility] Hemoglobin (Bld) [Mass/Vol] 9.2 g/dL Low 12.0 - 16.0 g/dL [facility] IMMATURE GRANULOCYTES ABS AUTO 0.08 High [facility] Immature granulocytes/100 WBC (Bld) 0.8 % High 0.0 - 0.5 % [facility] Interpretation and review of laboratory results Abnormal [facility] LYMPHOCYTES ABSOLUTE AUTO 1.8 [facility] Lymphocytes/100 WBC (Bld) 19.1 % Low 20.5 - 60.0 % [facility] MCH (RBC) [Entitic mass] 26.5 pg Low 26.7 - 34.0 pg [facility] MCHC (RBC) [Mass/Vol] 31.2 g/dL 29.9 - 35.2 g/dL [facility] MCV (RBC) [Entitic vol] 85.0 fL 81.0 - 99.0 fL [facility] MONOCYTES ABSOLUTE AUTO 0.8 [facility] Monocytes/100 WBC (Bld) 8.0 % 1.7 - 12.0 % [facility] NEUTROPHILS ABSOLUTE AUTO 6.9 High [facility] Neutrophils/100 WBC (Bld) 71.6 % 43.0 - 75.0 % [facility] Platelet mean volume (Bld) [Entitic vol] 10.5 fL 9.5 - 13.5 fL [facility] TBH EO # 0.0 [facility] TB PLT 192 [facility] TB RBC 3.47 Low [facility] WBC 9.6 [facility] XR CHEST (2 VW)on 07-09-2021 XR CHEST [...] Kaba MD 07/09/21 Final result Normal [facility] POC Rapid Strep Aon 12-28-19 Interpretation and review of laboratory results Normal Invalid Interpretation Code [facility] Streptococcus pyogenes antigen presence Negative Invalid Interpretation Code Negative [facility] Basic Metabolic Panelon 05-0 Anion gap 8.0 mmol/L Normal 6.0-18.0 [facility] Comment on above: Result Comment: PLEA SE NOTE:The calculated Anion Gap(AGAP) does not include Potassium. Performed By: #### 6 9405-9, 29476-2q9, 3040-3, 60413-4, 36749-3 ####[facility], [address] [place], [place] [address], [place]. Calcium 9.3 mg/dL Normal 8.9-10.3 [facility] Comment on above: Performed By: #### 6 9405-9, 06362-8i0, 3040-3, 06268-2, 80096- 3 ####[facility], [address] [place], [place]. Chloride 106 mmol/L Normal 98-107 [facility] Comment on above: Performed By: #### 6 9405-9, 60373-2k7, 3040-3, 50402-7, 10821- 3 ####[facility], [address], [place]. CO2 25 mmol/L Normal 22-32 [facility] Comment on above: Performed By: #### 6 9405-9, 71987-6x0, 3040-3, 25087-5, 31961- 3 ####[facility], [address] [place], [place]. Creatinine 0.65 mg/dL Low 0.66-1.30 [facility] Comment on above: Performed By: #### 6 9405-9, 49676-8z6, 3040-3, 19015-0, 16285- 3 ####[facility], [address] [place], [place]. Glucose mass conc 88 mg/dL Normal 70-110 [facility] Comment on above: Performed By: #### 6 9405-9, 19279-7k0, 3040-3, 73341-7, 55214- 3 ####[facility], [address], [place]. Potassium molar conc 3.5 mmol/L Low 3.6-5.1 [facility] Comment on above: Performed By: #### 6 9405-9, 10657-0r9, 3040-3, 44259-5, 38600- 3 ####[facility], [address] [facility] [place]. Sodium 139 mmol/L Normal 136-145 [facility] Comment on above: Performed By: #### 6 9405-9, 42831-1s8, 3040-3, 62038-6, 75481- 3 ####[facility], [address] [facility], [place], [place]. Urea nitrogen mass conc (BldV) 10 mg/dL Normal 8-20 [facility] Comment on above: Performed By: #### 6 9405-9, 75321-9u7, 3040-3, 36403-5, 43526- 3 ####[facility], [address] [place], [place]. CBCon 11-21-2017 Erythrocyte distribution width Entitic volume (RBC) 20.1 % High 11.0-14.8 [facility] Comment on above: Performed By: #### 2 4317-0 ####[facility], [address] [place], [place]. Erythrocytes (RBC) 4.57 million/mcL Normal 3.80-5.10 [facility] Comment on above: Performed By: #### 2 4317-0 ####[facility], [address] [facility] [place]. Hematocrit (HCT) 34.8 % Low 35.0-45.0 [facility] Comment on above: Performed By: #### 2 4317-0 ####[facility], [address] [facility] [place]. Hemoglobin mass conc (Bld) 11.3 g/dL Low 12.0-16.0 [facility] Comment on above: Performed By: #### 2 4317-0 ####[facility], [address] [facility]. MCH 24.8 Picograms Low 27.0-34.0 [facility] Comment on above: Performed By: #### 2 4317-0 ####[facility], [address] [place], [place]. MCHC mass conc (RBC) 32.6 g/dL Normal 32.0-36.0 [facility] Comment on above: Performed By: #### 2 4317-0 ####[facility], [address] [place]. MCV 76.1 fL Low 80.0-97.0 [facility] Comment on above: Performed By: #### 2 4317-0 ####[facility], [address] [facility]. Platelet mean volume Entitic volume (Bld) 8.9 FL Normal 6.2-12.1 [facility] Comment on above: Performed By: #### 2 4317-0 ####[facility], [facility]. Platelets 251 thou/mcL Normal 142-424 [facility] Comment on above: Performed By: #### 2 4317-0 ####[facility], [address], [place], [place]. WBC (Leukocytes) 6.4 thou/mcL Normal 4.6-10.2 [facility] Comment on above: Performed By: #### 2 4317-0 ####[facility], [address] [facility] [place] CT Abd and Pelvis w Contrast [...] emergency department following dictation on 11/21/2017 3:41 AM.[facility] thanks you for the opportunity to care for your patient. Workstation ID: [id number] - [id number] FINAL REPORT Dictated By: Pérez Queen MD 11/21/2017 03:38Assigned Physician: Pérez Queen MDReviewed and Electronically Signed By: Pérez Queen MD 11/21/2017 03:42Transcribed by: HELEN 11/21/2017 03:38Technologist: [facility] Normal [facility] Culture Urine + Susceptibili tyon 11-21-2017 Urine culture, bacteria [facility] MicrobiologyPROCEDURE: Culture Urine + SusceptibilitySOURCE: Urine BODY SITE:COLLECTED DATE/TIME: 11/21/2017 01:41 EDT RECEIVED DATE/TIME: 11/21/2017 01:41 EDTSTART DATE/TIME: 11/21/2017 01:41 EDT FREE TEXT SOURCE: URINEINTERFACED REPORTSFinal Report []Verified Date/Time/Personnel: 11/22/2017 12:17 EDT CONTRIBUTOR_SYSTEM, CO_PNORGANISMS USUALLY ASSOCIATED WITH VAGINAL,URETHRAL,AND/OR SKIN CONTAMINATION PRESENT. Normal [facility] Comment on above: Performed By: #### 5 [id number], [id number] ####[facility], [address], [place].#### [phone] ####[facility] [address], [place] Depart Summaryon 11-21-2017 Depart Summary EMERGENCY DEPARTMENT DISCHARGE SUMMARYPATIENT NAME:ELOY BOSTON MRN: [id number]: 22 Years SEX: Female PHONE:[id number]: 11/20/2017 10:57 PM : 1995 ATTENDING PHYSICIAN:Ernestine Mckeon MD PCP: Physician, No PCP CHIEF COMPLAINT: abdominal pain Allergies Compazine (Anger)Problems Active No Chronic Problems DISCHARGE DIAGNOSIS: DISCHARGE INSTRUCTIONS: Work Release (CO-S) (CUSTOM); Abdominal Pain, Adult ED PHYSICIAN DOCUMENTATION: History of Present [id number] female with no significant medical history presents [...] ?Room air?Temperature:??98 .3 ?(11/20 22:59)?Pulse:??71 ?(11/21 00:34)?Respiration:??18 ?(11/21)?BP:??108/70 ?(11/21 00:)?Pulse Ox:??99 ?(11/21 00:)?Oxygen Delivery:??Room air ?(11/21)?Pain Score:??4 ?(11/20 22:59)???PULSE OX INTERPRETATION: The Pulse [...] PLAN:Condition: [Stable].Disposition: [Medically cleared], Discharged Date/Time: [ 439] to HomePrescriptions: famotidine?20 mg, By Mouth Twice [...] Result(s): Date Order Results 11/20/2017 23:06 Specific [place] Urine POCT N 1.030 11/20/2017 23:06 pH Urine POCT N 5 11/20/2017 23:06 Urobilinogen Urine POCT N 0 mg/dL 11/21/2017 01:41 Appearance Urine A TURBID 11/21/2017 01:41 Specific [place] Urine H 1.032 11/21/2017 01:41 Blood Urine [...] any generalized worsening of your condition. Normal [facility] ED Beth Jacome 11-21-2017 ED Pat Em[place] [place] [address] Emergency Department Discharge Instructions ELOY BOSTON , Please provide this information to your Primary Care/Specialist Name : ELOY BOSTON Current Date : 11/21/2017 03:50:01DOB : 1995 12:00 PM Primary Care Physician: Physician, [place] PCP Diagnosis : Follow-Up Instructions:ELOY BOSTON has been given these follow-up instructions: [...] [facility] Name ELOY BOSTON MRN ([facility])-[id number] PLEASE READ THE FOLLOWING REGARDING YOUR MEDICATIONS [...] doses are changed, or new medications (including esgp-fdc-pqaeviy products) are added. If you have any [...] TAKE UNTIL YOU TALK TO YOUR DOCTORNone [address] [address] Emergency Department Discharge Instructions Name: ELOY BOSTON Current Date: 11/21/2017 03:50:01 : 1995 12:00 PM Primary Physician: Physician, No PCP We would like to thank you for choosing [facility] for your emergency medical needs. We [...] health of those around you. Call the [place] [employer] at 0-368-LIOO-USA or the [place] [employer] at 4-283-OVW-8799 for more information.High blood pressure: Your screening blood pressure today was 108 mm Hg / . Hypertension (high blood pressure) is blood pressure over 120/80. People with hypertension should contact their primary care provider within 30 days to follow up. Check your patient portal for additional blood pressure information.Immunizations:I mmunization is a way to protect against deadly infections. Discuss this with your child's care support representative, or Public Health Department. Your family practice doctor can determine if you need pneumonia or flu vaccine. The [facility] Department can be reached at .Domestic [...] suicide hotline, anytime day or night, at 1-568-435-FPPL. Pharmacy Information:Below is a list of 24 hour pharmacies that we are aware of. We suggest that you call the specific pharmacy for their hours before traveling to a location. Hours may vary on holidays. [facility] [address] [place] [address] [phone] [place] [address] [phone] [place] [address] [phone] [place] [place] [address] [phone] [place] [address] [phone] [place] [address] [phone] [place] [address] [phone] Take all medications as directed. If you need prescription assistance, contact the following agencies:?? Partnership for Prescription Assistance at or www.Avexxinx.org?? [facility] at or www.Implicit Monitoring Solutionsstrx.org?? www.Stonestreet OneROverinteractive Media is a site with many valuable coupons Patient Education Materials ELOY BOSTON has been given the following patient [...] alleviate any discomfort you are experiencing:???Only take qmks-itd-lbxjisj or prescription medicines as directed by your [...] Document Reviewed: 03/15/2014Prieto Interactive Patient Education ?2016 [employer]><><><><><><><><><><>< ><><><><><><><><><><><>< ><> Patient Visit Summary ELOY Jackson has been given the following list of patient education materials, prescriptions and follow-up instructions: TEJ Whitten MORGAN A, have received the above patient education materials/instructions and have verbalized understanding: Date Time Patient Signature Date Time Provider Signature Normal [facility] ED Physician Noteson 018 ED [...] [Stable]. Disposition: [Medically cleared], Discharged Date/Time: [ 439] to Home Prescriptions:famotidine 20 mg, By Mouth [...] chronic problems Historical No qualifying dataProcedure/Surgical History [place] tooth.Medications Home No active home medications ED [...] department following dictation on 11/21/2017 3:41 AM. [facility]bot thanks you for the opportunity to care [...] MD November 21, 2017 00:59 Completed GFRAF Ernestnie Mckeon MD November 21, 2017 02:02 Completed GFRNAF Ernestine Mckeon MD November 21, 2017 02:02 Completed U MICRO Ernestine Mckeon MD November 21, 2017 02:18 Completed C URINE Ernestine Mckeon MD November 21, 2017 02:[address] / MRI / Ultrasound Abdomen and Pelvis CT w Contrast Ernestine Mckeon MD November 21, 2017 00:59 Completed Normal [facility] ED Physician Notes PDF Normal [facility] GFRaaon 11-21-2017 eGFR (black) mL/min/{1.73_m2} Normal [facility] Comment on above: Result Comment: The MDRD equation has not been validated for those over 70 years, women, patients with serious co-morbid conditions, or with extremes of bodysize, muscle mass of nutritional status. Performed By: #### 6 9405-9, 31912-2s3, 3040-3, 03052-2, 45795-1 ####[facility], [address] [place], [place]. GFRbbon 11-21-2017 eGFR (non-black) mL/min/{1.73_m2} Normal [facility] Comment on above: Performed By: #### 6 9405-9, 81773-0o6, 3040-3, 00271-5, 58977- 3 ####[facility], [address] [place], [place]. Hepatic Function Panelon Alanine aminotransferase (ALT) 15 Units/L Normal 14-63 [facility] Comment on above: Performed By: #### 6 9405-9, 50282-4l2, 3040-3, 26168-0, 29669- 3 ####[facility], [address] [place], [place]. Albumin 4.2 g/dL Normal 3.5-4.8 [facility] Comment on above: Performed By: #### 6 9405-9, 38670-9g1, 3040-3, 07721-6, 23989- 3 ####[facility], [address] [place], [place]. Alkaline phosphatase (ALP) 36 Units/L Normal 32-91 [facility] Comment on above: Performed By: #### 6 9405-9, 98453-8v4, 3040-3, 72043-3, 62010- 3 ####[facility], [address] [place], [place]. Aspartate aminotransferase (AST) 19 Units/L Normal 15-41 [facility] Comment on above: Performed By: #### 6 9405-9, 15555-3y7, 3040-3, 42883-3, 98495- 3 ####[facility], [address] [place], [place]. Bilirubin (direct) 0.1 mg/dL Normal 0.1-0.5 [facility] Comment on above: Performed By: #### 6 9405-9, 81670-0z0, 3040-3, 30416-6, 72485- 3 ####[facility], [address] [place], [place]. Bilirubin (total) 0.6 mg/dL Normal 0.3-1.2 [facility] Comment on above: Performed By: #### 6 9405-9, 08336-1p0, 3040-3, 06207-7, 84715- 3 ####[facility], [address], [place]. Bilirubin.indirect mass conc 0.5 mg/dL Normal 0.0-1.0 [facility] Comment on above: Performed By: #### 6 9405-9, 38729-2n4, 3040-3, 40274-8, 95405- 3 ####[facility], [address] [place], [place]. Protein 6.9 g/dL Normal 6.1-7.9 [facility] Comment on above: Performed By: #### 6 9405-9, 28745-8v1, 3040-3, 28742-3, 10620- 3 ####[facility], [address] [place], [place]. Lipaseon 11-21-2017 Lipase 21 Units/L Low 22-51 [facility] Comment on above: Performed By: #### 6 9405-9, 18740-2r3, 3040-3, 87827-0, 62168- 3 ####[facility], [address] [place], [place]. Urinalysis Microscopicon Urine, amorphous crystals presence in sediment FEW Abnormal NONE/HPF [facility] Comment on above: Performed By: #### 5 8077-9, 19312-7 ####[facility], [address], [place].#### 630-4 ####[facility] [address] [place], [place] Urine, bacteria in sediment FEW Abnormal NONE/HPF [facility] Comment on above: Performed By: #### 5 8077-9, 36784-4 ####[facility], [address] [place], [place].#### 630-4 ####[facility] [address] [place], [place] Urine, erythrocytes in sediment by area 6 /[HPF] High 0-5 [facility] Comment on above: Performed By: #### 5 8077-9, 89414-2 ####[facility], [address] [place] [address].#### 630-4 ####[place] [address] [place], [place] Urine, mucus presence in sediment MANY Abnormal NONE/LPF [facility] Comment on above: Performed By: #### 5 8077-9, 75409-5 ####[facility], [address] [place] [address].#### 630-4 ####[place] [address] [place], [place] Urine, squamous cells in sediment MANY Abnormal FEW/LPF [facility] Comment on above: Performed By: #### 5 8077-9, 67651-5 ####[facility], [address] [place] [address].#### 630-4 ####[place] [address] [place], [place] WBC Urine 6 /hpf High 0-5 [facility] Comment on above: Performed By: #### 5 8077-9, 38592-2 ####[facility], [address] [place], [place].#### 630-4 ####[place] [address] [place], [place] Urinalysis with Microscopic Automatic with Reflexon 11-21-2017 Bilirubin Test strip mass conc (U) Negative Normal NEGATIVE [facility] Comment on above: Performed By: #### 5 8077-9, 85775-0 ####[facility], [address], [place].#### 630-4 ####[place] [address] [place], [place] Glucose Test strip mass conc (U) NORMAL Normal NORMAL [facility] Comment on above: Performed By: #### 5 8077-9, 52738-8 ####[facility], [address], [place].#### 630-4 ####[address] Ketones Test strip mass conc (U) 80MG/DL Abnormal NEGATIVE [facility] Comment on above: Performed By: #### 5 8077-9, 84554-0 ####[facility], [address], [place].#### 630-4 ####[address] Nitrite Test strip mass conc (U) Negative Normal NEGATIVE [facility] Comment on above: Performed By: #### 5 8077-9, 09690-4 ####[facility], [address], [place].#### 630-4 ####[place] [address] [place], [place] Urine, appearance TURBID Abnormal CLEAR [facility] Comment on above: Performed By: #### 5 8077-9, 81134-1 ####[facility], [address] [place], [place].#### 630-4 ####[place] [address] [place], [place] Urine, color TELLO Normal YELLOW [facility] Comment on above: Performed By: #### 5 8077-9, 30754-3 ####[facility], [address] [place], [place].#### 630-4 ####[facility] [address] [place], [place] Urine, hemoglobin presence 10/UL Abnormal NEGATIVE [facility] Comment on above: Performed By: #### 5 8077-9, 80396-3 ####[facility], [address]#### 630-4 ####[place] [address] [place], [place] Urine, leukocyte esterase presence 25/UL Abnormal NEGATIVE [facility] Comment on above: Performed By: #### 5 8077-9, 18032-5 ####[facility], [address] [facility] [place]#### 630-4 ####[address] Urine, pH 5.0 [pH] Normal 4.5-8.0 [facility] Comment on above: Performed By: #### 5 8077-9, 89601-5 ####[facility], [address] [facility] [facility]#### 630-4 ####[place] [address] [place] Urine, protein 100 mg/dL Abnormal NEGATIVE [facility] Comment on above: Performed By: #### 5 8077-9, 89651-4 ####[facility], [address]#### 630-4 ####[place] [address] [place], [place] Urine, specific gravity 1.032 High 1.002-1.030 [facility] Comment on above: Performed By: #### 5 8077-9, 29065-0 ####[facility], [address], [place].#### 630-4 ####[place] [address] [place], [place] Urobilinogen Test strip mass conc (U) NORMAL Normal NORMAL [facility] Comment on above: Performed By: #### 5 8077-9, 35729-8 ####[facility], [address] [place], [place].#### 630-4 ####[facility] [address] [place], [place] Depart Summaryon 10-10-2017 Depart Summary EMERGENCY DEPARTMENT DISCHARGE SUMMARYPATIENT NAME:ELOY BOSTON MRN: ([id number]: 22 Years SEX: Female PHONE:[phone]: 10/10/2017 1:18 PM : 1995 ATTENDING PHYSICIAN:Yaneth Radford MD PCP: Physician, No PCP CHIEF COMPLAINT: Fever, Cough/ST, Congestion Allergies Compazine (Anger)Problems Active No Chronic Problems DISCHARGE DIAGNOSIS: DISCHARGE INSTRUCTIONS: AA-Zippy's work release. ([id number]); Upper Respiratory Infection, Adult; Acute Bronchitis; Pharyngitis; Strep Throat; Sinusitis, Adult ED PHYSICIAN DOCUMENTATION: History of Present Illness I have introduced myself as the PA and informed the patient of the supervising/ collaborating physician who is available upon request. I have discussed the case with the ED physician who participated in the decisions regarding any therapeutic interventions. Physician: Dr. RadfordVplrli78-wttn-gkp white female with history of heart murmur [...] congestion and mild cough. She used numerous hukw-aos-llfmetv medications and thought that she was getting [...] identified. Immediate final results were provided per protocol.Abbot thanks you for the opportunity to care for your patient. Workstation ID: [id number] - [id number] FOLLOW UP:FOLLOW-UP APPOINTMENTS: Provider: Specialty: Address: Date: [facility] [address] [place] [address] (4) Follow-up as needed Comment: This is [...] be significantly worsening instead of improving. Normal [facility] ED Pat Eduon 10-10-2017 ED [address] [place] [address] Emergency Department Discharge Instructions ELOY BOSTON , Please provide this information to your Primary Care/Specialist Name : ELOY BOSTON Current Date : 10/10/2017 14:43:31DOB : 1995 12:00 PM Primary Care Physician: Physician, [place] PCP Diagnosis : Follow-Up Instructions:ELOY BOSTON has been given these follow-up instructions: FOLLOW-UP APPOINTMENTS: Provider: Specialty: Address: Date: [facility] ([facility]) [address] [place] [address] (8) Follow-up as needed Comment: This is [...] and Patient Education(s) : Keiry's work release. ([id number]); Upper Respiratory Infection, Adult; Acute Bronchitis; Pharyngitis; Strep Throat; Sinusitis, Adult EMERGENCY SERVICES MEDICATION LISTLista de Medicaciones de los Servicios de Emergencia ELOY [facility]# [id number] PLEASE READ THE FOLLOWING REGARDING YOUR MEDICATIONS [...] doses are changed, or new medications (including spne-lgw-fhkgeod products) are added. If you have any [...] YOU TALK TO YOUR DOCTORNone [place] [address] [facility] Department Discharge Instructions Name: ELOY BOSTON Current Date: 10/10/2017 14:43:31 : 1995 12:00 PM Primary Physician: Physician, No PCP We would like to thank you for choosing [facility] for your emergency medical needs. We [...] health of those around you. Call the [place] [employer] at 5-257-XNJB-USA or the [place] Cancer Society at 9-038-IKG-0693 for more information.High blood pressure: Your screening blood pressure today was 115 mm Hg / . Hypertension (high blood pressure) is blood pressure over 120/80. People with hypertension should contact their primary care provider within 30 days to follow up. Check your patient portal for additional blood pressure information.Immunizations:I mmunization is a way to protect against deadly infections. Discuss this with your child's care support representative, or Public Health Department. Your family practice doctor can determine if you need pneumonia or flu vaccine. The [facility] Department can be reached at .Domestic [...] suicide hotline, anytime day or night, at 0-146-362-IDYC. Pharmacy Information:Below is a list of 24 hour pharmacies that we are aware of. We suggest that you call the specific pharmacy for their hours before traveling to a location. Hours may vary on holidays. [facility] Pharm[facility] [place] [address] [phone] [address] [phone] [address] [phone] [place] [address] [phone] [place] [address] [phone] [place] [address] [phone] [place] [address] [phone] Take all medications as directed. If you need prescription assistance, contact the following agencies:?? Partnership for Prescription Assistance at or www.Jolancer.org?? [facility] Rx at or www.OstararLiveroof China.org?? www.Stonestreet OneRLiveroof China.Beacon Power is a site with many valuable coupons Patient Education Materials ELOY BOSTON has been given the following patient education materials: [facility] [address] [place], [place] [address]Phone: Gmpt Release FormThis notice verifies that your employee TEJELOY MARLEY Luis was seen in this facility on 10/10/2017 [...] Released: 07/06/2006 Document Revised: 07/27/2015 Document Reviewed: 07/20/2012Elsevier Interactive Patient Education ?2016 [employer].ENTPharyngitisPharyngit is is redness, pain, and swelling [...] urine clear or pale yellow. ?Only take mmgm-qop-iybkkew or prescription medicines as directed by your [...] Document Reviewed: 03/13/2014Prieto Interactive Patient Education ?2016 [employer].Strep ThroatStrep throat is an infection of the [...] Document Reviewed: 10/29/2015Prieto Interactive Patient Education ?2016 [employer].Emergency MedicineUpper Respiratory Infection, AdultMost upper respiratory infections [...] Document Reviewed: 10/11/2014Prieto Interactive Patient Education ?2016 [employer].Acute BronchitisBronchitis is inflammation of the airways that [...] Document Reviewed: 12/27/2013Prieto Interactive Patient Education ?2016 [employer].<><><><><><><><><><><>< ><><><><><><><><><><><><><> Patient Visit Summary ELOY Jackson has been given the following list of patient education materials, prescriptions and follow-up instructions: TEJ Whitten MORGAN A, have received the above patient education materials/instructions and have verbalized understanding: Date Time Patient Signature Date Time Provider Signature Normal [facility] ED Physician Noteson 018 ED Physician Notes Patient: NORIS BOSTON MRN: ([id number] Age: 22 years Sex: Female : 1995 Associated Diagnoses: None Author: Gabriel Hutchinson History of Present Illness I have introduced myself as the PA and informed the patient of the supervising/ collaborating physician who is available upon request. I have discussed the case with the ED physician who participated in the decisions regarding any therapeutic interventions. Physician: Dr. RadfordLyjzgu31-eyli-wal white female with history of heart murmur [...] congestion and mild cough. She used numerous flpp-wzq-wzqygny medications and thought that she was getting [...] Pharyngitis, Acute Bronchitis, Upper Respiratory Infection, Adult, AA-Ziptheodora's work release. ([id number]). Follow up with: ; [facility] ([facility]) Within Follow-up as needed This is a [...] Chief Complaint-Triage Fever, Cough/ST, Congestion . Normal [facility] ED Physician Notes PDF Normal [facility] XR Chest 2 Viewson 8 XR Chest 2 views STUDY: Chest two vie ws dated 10/10/2017 1:59 PM.COMPARISON: None.HISTORY: Cough. Fever. 3 days of symptoms. Back pain. Smoking history.FINDINGS: The heart and mediastinum are not enlarged. Vasculature is not increased. No acute consolidation, effusion or pneumothorax is identified.IMPRESSION: No acute cardiopulmonary disease identified. Immediate final results were provided per protocol.Abbot thanks you for the opportunity to care for your patient. Workstation ID: [id number] - [id number] FINAL REPORT Dictated By: Marcos Dueñas MD 10/10/2017 14:01Assigned Physician: Marcos Dueñas MDReviewed and Electronically Signed By: Marcos Dueñas MD 10/10/2017 14:01Transcribed by: HELEN 10/10/2017 14:01Technologist: [facility] Normal [facility] BMPon 05-07-2017 Anion gap 3 molar conc 14 mmol/L Invalid Interpretation Code 10 - 20 mmol/L [facility] Calcium mass conc 9.0 mg/dL Invalid Interpretation Code 8.4 - 10.2 mg/dL [facility] Chloride molar conc 102 mmol/L Invalid Interpretation Code 98 - 108 mmol/L [facility] Creatinine mass conc 0.52 mg/dL Invalid Interpretation Code 0.4 - 1.1 mg/dL [facility] GFR/1.73 sq M predicted among non-blacks MDRD vol rate/area (S/P/Bld) The eGFR should be used for monitoring renal function only and not for medication dosing. Invalid Interpretation Code [facility] GFR/1.73 sq M.predicted CKD-EPI vol rate/area (S/P/Bld) 137 mL/min/1.73 m2 Invalid Interpretation Code >=60 [facility] Glucose mass conc 88 mg/dL Invalid Interpretation Code 65 - 99 mg/dL [facility] HCO3 molar conc 27 mmol/L Invalid Interpretation Code 21 - 32 mmol/L [facility] Potassium molar conc 3.7 mmol/L Invalid Interpretation Code 3.5 - 5.1 mmol/L [facility] Sodium molar conc 139 mmol/L Invalid Interpretation Code 135 - 145 mmol/L [facility] Urea nitrogen mass conc 13 mg/dL Invalid Interpretation Code 8 - 25 mg/dL [facility] Urea nitrogen/Creatinine mass ratio 25.0 mg/mg High 10.0 - 20.0 [facility] CBC Auto Differentialon 04-19 Basophils Auto #/vol (Bld) 0.02 K/mcL Invalid Interpretation Code 0.00 - 0.30 [facility] Basophils/100 WBC Auto (Bld) 0.3 % Invalid Interpretation Code [facility] Eosinophils Auto #/vol (Bld) 0.06 K/mcL Invalid Interpretation Code 0.00 - 0.50 [facility] Eosinophils/100 WBC Auto (Bld) 0.8 % Invalid Interpretation Code [facility] Erythrocyte distribution width Auto Entitic volume (RBC) 18.4 % High 11.6 - 14.8 % [facility] Hematocrit Auto Volume Fraction (Bld) 36.9 % Invalid Interpretation Code 36 - 46 % [facility] Hemoglobin mass conc (Bld) 11.4 g/dL Low 12 - 16 g/dL [facility] Immature granulocytes #/vol (Bld) 0.02 K/mcL Invalid Interpretation Code 0.00 - 0.30 [facility] Immature granulocytes/100 WBC (Bld) 0.30 % Invalid Interpretation Code [facility] Comment on above: The IG parameter is the percentage of metamyelocytes, myelocytes, and promyelocytes. Lymphocytes Auto #/vol (Bld) 2.18 K/mcL Invalid Interpretation Code 0.90 - 4.00 [facility] Lymphocytes/100 WBC Auto (Bld) 28.3 % Invalid Interpretation Code [facility] MCH Auto Entitic mass (RBC) 24.6 pg Low 26 - 34 pg [facility] MCHC Auto mass conc (RBC) 30.9 g/dL Low 31 - 37 g/dL [facility] MCV Auto Entitic volume (RBC) 79.7 fL Low 80 - 100 fL [facility] Monocytes Auto #/vol (Bld) 0.56 K/mcL Invalid Interpretation Code 0.30 - 0.90 [facility] Monocytes/100 WBC Auto (Bld) 7.3 % Invalid Interpretation Code [facility] Neutrophils Auto #/vol (Bld) 4.85 K/mcL Invalid Interpretation Code 1.70 - 7.00 [facility] Neutrophils/100 WBC Auto (Bld) 63.0 % Invalid Interpretation Code [facility] Nucleated RBC #/vol (Bld) 0.00 K/mcL Invalid Interpretation Code 0.00 - 0.00 [facility] Nucleated RBC/100 WBC Ratio (Bld) 0.0 % Invalid Interpretation Code [facility] Platelet mean volume Auto Entitic volume (Bld) 11.3 fL Invalid Interpretation Code 9 - 15.5 fL [facility] Platelets Auto #/vol (Bld) 277 K/mcL Invalid Interpretation Code 150 - 400 [facility] RBC Auto #/vol (Bld) 4.63 M/mcL Invalid Interpretation Code 4.00 - 5.20 [facility] WBC Auto #/vol (Bld) 7.69 K/mcL Invalid Interpretation Code 4.50 - 11.00 [facility] CBC w/ Diffon 05-07-2017 CBC w/ Diff The following orders were created for panel order CBC w/ Diff. Procedure Abnormality Status --------- ------ CBC Auto Differential[[id number]] Abnormal Final result Please view results for these tests on the individual orders. Invalid Interpretation Code [facility] Work Phone: [phone] Vince Boatengn 05-07-2017 Extra Tube Hold for add-ons. Invalid Interpretation Code [facility] Comment on above: Auto resulted. [place] Drawon 05-07-2017 [place] Draw The following orders were created for panel order [place] [facility]. Procedure Abnormality Status --------- ------ Gold Top[[id number]] Final result Light Blue Top[[id number]] Final result [place] Top[[id number]] Final result [place] Top[[id number]] Final result Please view results for these tests on the individual orders. Invalid Interpretation Code [facility] Work Phone: Urinalysison 05-07-2017 Bacteria Auto Ql (U) None Seen Invalid Interpretation Code None Seen /hpf [facility] Bilirubin Ql (U) Negative Invalid Interpretation Code Negative [facility] Clarity Refractometry automated Nom (U) Clear Invalid Interpretation Code Clear [facility] Color Auto Nom (U) Yellow Invalid Interpretation Code Colorless, Yellow [facility] Epithelial cells.squamous Auto #/area (Urine sed) <1 Invalid Interpretation Code 0 - 4 /hpf [facility] Glucose Automated test strip mass conc (U) Negative Invalid Interpretation Code Negative mg/dL [facility] Hemoglobin Automated test strip Ql (U) Negative Invalid Interpretation Code Negative [facility] Interpretation and review of laboratory results Abnormal Invalid Interpretation Code [facility] Ketones mass conc (U) Negative Invalid Interpretation Code Negative mg/dL [facility] Leukocyte esterase Automated test strip Ql (U) Negative Invalid Interpretation Code Negative [facility] Mucus Auto #/area (Urine sed) Few Abnormal None Seen, Rare /lpf [facility] Nitrite Automated test strip Ql (U) Negative Invalid Interpretation Code Negative [facility] pH Test strip (U) 6.0 [pH] Invalid Interpretation Code 5.0 - 7.0 [facility] Protein mass conc (U) 30 Abnormal Negative mg/dL [facility] Comment on above: False positive resul ts may occur in urines with large amounts of hemoglobin, pH greater than 8.0, contrast medium, or disinfectants including ammonium compounds. Specific gravity Automated test strip Relative Density (U) 1.021 1 Invalid Interpretation Code 1.005 - 1.025 [facility] Urobilinogen Test strip Qn (U) <2.0 Invalid Interpretation Code <2.0 mg/dL [facility] WBC Auto #/area (Urine sed) 1 /hpf Invalid Interpretation Code 0 - 5 [facility] Urinalysis Microscopic examinat ion is performed on all urinalysis samples and only positive findings are reported. The test for blood on the chemical analytic portion of urinalysis may also be positive due to hemoglobinuria and myoglobinuria and if red blood cells are present they are quantified by microscopic examination. Invalid Interpretation Code [facility] Urine Pregnancyon 05-07-2017 HCG ( test) Ql (U) Negative Invalid Interpretation Code Negative [facility] Interpretation and review of laboratory results Normal Invalid Interpretation Code [facility] Vital Signs Date Time Vital Sign Value Performing Clinician Facility 11-10-2024 15:43-0400 Body height 161.9 cm Greta Brand DO Work Phone: [facility] 11-10-2024 15:43-0400 Body mass index (BMI) [Ratio] 23.22 kg/m2 Greta Brand DO Work Phone: [facility] 11-10-2024 15:43-0400 Body temperature 99 [degF] Greta Brand DO Work Phone: [facility] 11-10-2024 15:43-0400 Body weight 60.87 kg Greta Brand DO Work Phone: [facility] 11-10-2024 15:43-0400 Diastolic blood pressure 62 mm[Hg] Greta Brand DO Work Phone: [facility] 11-10-2024 15:43-0400 Heart rate 83 /min Greta Nuñezs DO Work Phone: [facility] 11-10-2024 15:43-0400 Respiratory rate 16 /min Greta Brand DO Work Phone: [facility] 11-10-2024 15:43-0400 SaO2% (BldA) [Mass fraction] 99 % Greta Brand DO Work Phone: [facility] [employer] [facility] 11-10-2024 15:43-0400 Systolic blood pressure 90 mm[Hg] Greta Nuñezs DO Work Phone: [facility] [employer] [facility] 08-01-2024 10:32-0500 Body mass index (BMI) [Ratio] 25.3 kg/m2 Timothy Christelle DO Work Phone: [facility] 08-01-2024 10:32-0500 Body weight 66.86 kg Timothy Christelle DO Work Phone: [facility] 08-01-2024 10:32-0500 Diastolic blood pressure 50 mm[Hg] Timothy Christelle DO Work Phone: [facility] 08-01-2024 10:32-0500 Systolic blood pressure 98 mm[Hg] Timothy Christelle DO Work Phone: [facility] 07-18-2024 15:04-0500 Body height 161.9 cm Greta Nuñezs DO Work Phone: [facility] 07-18-2024 15:04-0500 Body mass index (BMI) [Ratio] 25.23 kg/m2 Greta Nuñezs DO Work Phone: [facility] [employer] [facility] 07-18-2024 15:04-0500 Body temperature 97.7 [degF] Greta Nuñezs DO Work Phone: [facility] [employer] [facility] 07-18-2024 15:04-0500 Body weight 66.13 kg Greta Nuñezs DO Work Phone: [facility] 07-18-2024 15:04-0500 Diastolic blood pressure 56 mm[Hg] Greta Yinghas DO Work Phone: [facility] 07-18-2024 15:04-0500 Heart rate 74 /min Greta Yinghas DO Work Phone: [facility] 07-18-2024 15:04-0500 Respiratory rate 18 /min Greta Nuñezs DO Work Phone: [facility] 07-18-2024 15:04-0500 SaO2% (BldA) [Mass fraction] 98 % Greta Brand DO Work Phone: [facility] 07-18-2024 15:04-0500 Systolic blood pressure 98 mm[Hg] Greta Brand DO Work Phone: [facility] 12-27-2017 11:36-0400 BMI (Body Mass Index) 23.64 kg/m2 [facility] 12-27-2017 11:36-0400 Body Temperature 98.29 [degF] [facility] 12-27-2017 11:36-0400 BP Diastolic 83 mm[Hg] [facility] 12-27-2017 11:36-0400 BP Systolic 121 mm[Hg] [facility] 12-27-2017 11:36-0400 Height 162.6 cm [facility] 12-27-2017 11:36-0400 Pulse (Heart Rate) 84 /min [facility] 12-27-2017 11:36-0400 Pulse Oximetry 97 % [facility] 12-27-2017 11:36-0400 Respiratory Rate 12 /min [facility] 12-27-2017 11:36-0400 Weight 62.46 kg [facility] 05-08-2017 13:44-0400 BP Diastolic 71 mm[Hg] [facility] Work Phone: 05-08-2017 13:44-0400 BP Systolic 118 mm[Hg] [facility] Work Phone: 05-08-2017 13:44-0400 Pulse (Heart Rate) 68 /min [facility] Work Phone: 05-08-2017 13:44-0400 Pulse Oximetry 99 % [facility] Work Phone: 05-08-2017 13:44-0400 Respiratory Rate 18 /min [facility] Work Phone: 05-08-2017 10:49-0400 BMI (Body Mass Index) 23.17 kg/m2 [facility] Work Phone: 05-08-2017 10:49-0400 Body Temperature 98.29 [degF] [facility] Work Phone: 05-08-2017 10:49-0400 Height 162.6 cm [facility] [employer] Work Phone: 05-08-2017 10:49-0400 Weight 61.24 kg [facility] Work Phone: 05-07-2017 19:00-0400 BP Diastolic 62 mm[Hg] Henri Pulliam [employer] Work Phone: 05-07-2017 19:00-0400 BP Systolic 108 mm[Hg] Henri Pulliam [employer] Work Phone: 05-07-2017 19:00-0400 Pulse (Heart Rate) 63 /min Henri Pulliam [facility] Work Phone: 05-07-2017 19:00-0400 Respiratory Rate 16 /min Henri Pulliam [facility] Work Phone: 05-07-2017 16:14-0400 BMI (Body Mass Index) 22.86 kg/m2 Henri Pulliam [facility] Work Phone: 05-07-2017 16:14-0400 Body Temperature 98.8 [degF] Henri Pulliam [facility] Work Phone: 05-07-2017 16:14-0400 Height 162.6 cm Henri Pulliam [facility] Work Phone: 05-07-2017 16:14-0400 Pulse Oximetry 100 % Henri Pulliam [facility] Work Phone: 05-07-2017 16:14-0400 Weight 60.42 kg Henri Pulliam [facility] Work Phone: Encounters Encounter Date Encounter Type Care Provider Facility Start: 12-26-2024 End: 12-26-2024 Bamboo flowsheet Timothy Quinteroo DO Work Phone: [facility] Start: 12-26-2024 End: 12-26-2024 Bamboo flowsheet Timothy Bourgeois DO Work Phone: [facility] Start: 12-26-2024 End: 12-26-2024 Patient encounter procedure Timothy Quinteroo DO Work Phone: [facility] Work Phone: Start: 12-26-2024 End: 12-26-2024 Periodic preventive med est patient 18-39 yrs Timothy Quinteroo DO Work Phone: [facility] Comment on above: Well woman exam with routine gynecological exam; depression (CMS/HCC); Anxiety, generalized (CMS/HCC) Start: 12-14-2024 End: 12-14-2024 Office outpatient new 30 minutes Eagle Myers [employer] Work Phone: [facility] Comment on above: Acute conjunctivitis of right eye, unspecified acute conjunctivitis type (Primary Dx); Seasonal allergies Start: 12-14-2024 ambulatory [facility] Start: 11-10-2024 End: 11-10-2024 ambulatory [facility] Start: 11-10-2024 End: 11-10-2024 Office outpatient visit 25 minutes [facility]: [facility] Comment on above: Wilfred thyroiditi s (Primary Dx); Bilateral sacroiliitis; Attention deficit hyperactivity disorder (ADHD), unspecified ADHD type; Persistent depressive disorder Start: 11-10-2024 End: 11-10-2024 ambulatory [facility] Start: 09-27-2024 End: 09-27-2024 ambulatory [facility] Start: 08-24-2024 End: 08-24-2024 Office outpatient visit 25 minutes Greta Brand DO Work Phone: [facility] Comment on above: Influenza A (Primary Dx) Start: 08-24-2024 End: 02-05-2025 ambulatory [facility] Start: 08-01-2024 End: 08-01-2024 Bamboo flowsheet Timothy Christelle DO Work Phone: [facility] Start: 08-01-2024 End: 08-01-2024 Bamboo flowsheet Timothy Christelle DO Work Phone: [facility] Start: 08-01-2024 End: 08-01-2024 Office outpatient visit 15 minutes Timothy Christelle DO Work Phone: [facility] Comment on above: Follow-up encounter involving medication; depression (CMS/HCC); Anxiety, generalized (CMS/HCC) Start: 07-29-2024 End: 07-29-2024 [facility] Start: 07-18-2024 End: 07-18-2024 [facility] Start: 07-18-2024 End: 07-18-2024 [facility] Start: 07-18-2024 End: 07-18-2024 Office outpatient new 45 minutes [facility] DO Work Phone: [facility] Comment on above: Fibromyalgia (Primar y Dx); Lumbar spine pain; Cervical spine pain; Iron deficiency anemia secondary to inadequate dietary iron intake; Attention deficit hyperactivity disorder (ADHD), unspecified ADHD type; Persistent depressive disorder Start: 07-18-2024 End: 07-18-2024 [facility] Start: 07-15-2024 End: 07-15-2024 ambulatory JERI Shirin AHSAN [facility] Start: 07-15-2024 End: 07-15-2024 External Result Encounter Jeri GARRETT Work Phone: [facility] Unsolicited Start: 07-15-2024 End: 07-15-2024 External Result Encounter Jeri GARRETT Work Phone: [facility] Unsolic[facility] Start: 03-14-2024 End: 08-26-2024 Phys/qhp telephone evaluation 5-10 min Timothy Bourgeois DO Work Phone: [facility] Comment on above: depressio n (CMS/HCC) Start: 08-28-2023 [employer]inis[employer] Result Encounter Jeri GARRETT Work Phone: [facility] Unsolicited Start: 08-28-2023 [employer] Result Encounter Jeri GARRETT Work Phone: [facility] Unsolicited Start: 07-09-2021 End: 07-12-2021 ambulatory DARY BLACK [facility] Start: 12-27-2017 End: 12-27-2017 Ambulatory ROXANE BEASLEY [facility] Start: 12-27-2017 End: 12-27-2017 Office/outpatient visit, est, level 3 Mari Crowell Work Phone: [facility] Start: 11-21-2017 End: 11-21-2017 Emergency department patient visit No PCP Physician Facility:[facility] Start: 10-10-2017 End: 10-10-2017 Emergency department patient visit No PCP Physician Facility:[facility] Start: 05-08-2017 End: 05-08-2017 Emergency department patient visit ROXANE BEASLEY [facility] Start: 05-08-2017 End: 05-08-2017 Emergency department patient visit Solis French Work Phone: [facility] Comment on above: Trapezius muscle spa sm (Primary Dx) Start: 05-07-2017 End: 05-07-2017 Emergency department patient visit HENRI PULLIAM [facility] Start: 05-07-2017 End: 05-07-2017 Emergency department patient visit Henri Pulliam Work Phone: [facility] Comment on above: Nonintractable heada cheryle, unspecified chronicity pattern, unspecified headache type (Primary Dx) Procedures Date Procedure Procedure Detail Performing Clinician Start: 11-10-2024 Adult depression scr eening assessment Greta Brand DO Work Phone: Start: 07-18-2024 Adult depression scr eening assessment Greta Brand DO Work Phone: Start: 07-15-2024 Thromboplastin time partial plasma/whole blood Jeri GARRETT Work Phone: Start: 08-28-2023 ALL CBC WITH AUTO DIFF Jeri GARRETT Work Phone: Start: 02-21-2022 Microscopic observat ion [Identifier] in Cervix by Cyto stain Greta Brand DO Work Phone: Plan of Treatment Date Care Activity Detail Author Start: 02-06-2030 DTaP,Tdap and Td Vaccines (7 - Td or Tdap) DTaP,Tdap and Td Vaccines (7 - Td or Tdap) [facility] Start: 01-01-2026 End: 01-01-2026 Patient encounter procedure 01/01/2026 1:00 PM EDT Office Visit [facility] [address] [place] [id number] Timothy Bourgeois DO [facility] [place] [address] [facility] Start: 11-10-2025 Adult BMI Screening Adult BMI Screen ing [facility] Start: 11-10-2025 Depression Screening Depression Scre ening [facility] Start: 11-10-2025 Tobacco Screening Tobacco Screening [facility] Start: 07-18-2025 Adult BMI Screening Adult BMI Screen ing [facility] Start: 07-18-2025 Depression Screening Depression Scre ening [facility] Start: 07-18-2025 Tobacco Screening Tobacco Screening [facility] Start: 03-20-2025 Influenza vaccination P [facility] Start: 02-21-2025 Screening for malign ant neoplasm of cervix Pap Smear [facility] Start: 12-26-2024 End: 12-26-2024 Patient encounter procedure 12/26/2024 1:00 PM EDT Office Visit [facility] [address] [facility] [place] [id number] Timothy Bourgeois DO [address] [place] [address] [facility] Start: 08-01-2024 End: 08-01-2024 Patient encounter procedure 08/01/2024 10:10 AM EST Office Visit [facility] [address] [place] [id number] Timothy Bourgeois, DO [address] [place] [address] [facility] Start: 07-18-2024 End: 07-18-2025 XR Cervical spine Views [facility] Comment on above: Expected: 07/18/2024 , Expires: 07/18/2025 Start: 07-18-2024 End: 07-18-2025 XR Lumbar spine 2 or 3 Views [facility] Comment on above: Expected: 07/18/2024 , Expires: 07/18/2025 Start: 06-21-2024 End: 06-21-2024 Patient encounter procedure 06/21/2024 1:40 PM EST Office Visit [facility] [address] [place] [id number] Timothy Bourgeois, DO [address] [place] [address] [facility] Start: 03-20-2024 COVID-19 Vaccine ( season) COVID-19 Vaccine ( season) [facility] Start: 03-20-2024 Influenza vaccination N [facility] Start: 08-31-2023 End: 08-31-2023 Patient encounter procedure 08/31/2023 4:00 PM EST Routine [facility] [address] [place] [phone] Timothy Bourgeois, DO [address] [place] [address] Third trimester [facility] Comment on above: Third trimester preg dinora Start: 03-20-2023 Influenza vaccination Influenza Vacc ine (#1) [facility] Start: 03-20-2018 Influenza vaccination SEQUENTI AL INFLUENZA VACCINE (Season Ended) [facility] Start: 03-20-2017 Influenza vaccination SEQUENTI AL INFLUENZA VACCINE (#1) [facility] Work Phone: Start: 2014 Adult BMI Follow Up Plan Adult BMI Follow Up Plan [facility] Start: 2007 Vaccination for luciana n papillomavirus HPV VACCINES (1 of 3 - Female 3 Dose Series) [facility] Work Phone: Start: 1996 Adult depression screening assessment DEPRESSION SCREENING (PHQ9) [facility] Start: 1996 Screening for malign ant neoplasm of cervix PAP SMEAR [facility] Work Phone: Start: 1996 SUBSTANCE ABUSE SCREENING (AUDIT-C) SUBSTANCE ABUSE SCREENING (AUDIT-C) [facility] Start: 1996 Tetanus vaccination TETANUS EVERY 10 YR [facility] Work Phone: End: 07-18-2025 [place] Screen w/ Reflex [place] Screen w/ Reflex Lab Routine Fibromyalgia 1 Occurrences starting 07/18/2024 until 07/18/2025 [facility] Comment on above: 1 Occurrences starti ng 07/18/2024 until 07/18/2025 End: 07-18-2025 CBC W Auto Differential panel - Blood CBC auto differential Lab Routine Iron deficiency anemia secondary to inadequate dietary iron intake 1 Occurrences starting 07/18/2024 until 07/18/2025 [facility] Work Phone: Comment on above: 1 Occurrences starti ng 07/18/2024 until 07/18/2025 End: 07-18-2025 Comprehensive metabolic 2000 panel - Serum or Plasma Comprehensive metabolic panel Lab Routine Iron deficiency anemia secondary to inadequate dietary iron intake 1 Occurrences starting 07/18/2024 until 07/18/2025 [facility] Comment on above: 1 Occurrences starti ng 07/18/2024 until 07/18/2025 Cytology Cervical or vaginal smear or scraping study Pap Smear Pathology and Cytology Routine Well woman exam with routine gynecological exam Ordered: 12/26/2024 [facility] Work Phone: Comment on above: Ordered: 12/26/2024 End: 07-18-2025 Erythrocyte sedimentation rate Erythrocyte Sedimentation Rate (ESR) Lab Routine Fibromyalgia 1 Occurrences starting 07/18/2024 until 07/18/2025 [facility] Comment on above: 1 Occurrences starti ng 07/18/2024 until 07/18/2025 End: 11-10-2025 Erythrocyte sedimentation rate Erythrocyte Sedimentation Rate (ESR) Lab Routine Bilateral sacroiliitis 1 Occurrences starting 11/10/2024 until 11/10/2025 [facility] Comment on above: 1 Occurrences starti ng 11/10/2024 until 11/10/2025 End: 11-10-2025 HLA-B27 antigen HLA-B27 antigen Lab Routine Bilateral sacroiliitis 1 Occurrences starting 11/10/2024 until 11/10/2025 [facility] Work Phone: Comment on above: 1 Occurrences starti ng 11/10/2024 until 11/10/2025 End: 07-18-2025 Iron and TIBC Iron and TIBC Lab Routine Iron deficiency anemia secondary to inadequate dietary iron intake 1 Occurrences starting 07/18/2024 until 07/18/2025 [facility] Comment on above: 1 Occurrences starti ng 07/18/2024 until 07/18/2025 Streptococcus pyogen es [Presence] in Throat by Organism specific culture Strep A Culture, Throat Routine Sore throat Ordered: 12/27/2017 [facility] End: 07-18-2025 TSH with Reflex TSH with Reflex Lab Routine Fibromyalgia 1 Occurrences starting 07/18/2024 until 07/18/2025 [facility] Comment on above: 1 Occurrences starti ng 07/18/2024 until 07/18/2025 Immunizations Immunization Date Immunization Notes Care Provider Fa [facility] 02-07-2020 tetanus toxoid, reduced diphtheria toxoid, and acellular pertussis vaccine, adsorbed Greta Brand DO Work Phone: [facility] 09-01-2019 influenza virus vaccine, unspecified formulation Greta Brand DO Work Phone: [facility] 08-06-2019 tetanus toxoid, reduced diphtheria toxoid, and acellular pertussis vaccine, adsorbed Greta Brand DO Work Phone: [employer] 05-08-2016 influenza, seasonal, injectable Henri Pulliam [facility] Work Phone: 05-08-2016 influenza virus vaccine, unspecified formulation Jeri Foreman PA Work Phone: [facility] NEGATED: Highlighted row has not occurred!05-01-2020 measles, mumps and rubella virus vaccine Greta Brand DO Work Phone: [employer] Comment on above: Deferred: - Rubella titer immune NEGATED: Highlighted row has not occurred!05-01-2020 varicella virus vaccine Greta Brand DO Work Phone: [employer] Comment on above: Deferred: - Varicell a titer immune Payers Date Payer Category Payer Private Health Insurance [employer] [id number] 2021 Commercial Managed C are - O [employer] [id number] 2021 Unknown [id number] 2017 Unknown [id number] 2017 Unknown [id number] 2016 Unknown 1996 Unknown [id number] 128 1996 Unknown [id number] 1286 1996 Unknown [id number] 128 1996 Unknown [id number] 128 1996 Unknown [id number] 128 1996 Unknown [id number] 1286 1996 Unknown [id number] 128 1996 Unknown [id number] 128 1996 Unknown [id number]. 1286 1996 Unknown [id number] 128 1996 Unknown [id number] 1286 Social History Date Type Detail Facility Start: 12-27-2017 [facility] End: 07-30-2019 History of tobacco use Cigarette Smoker [facility] Work Phone: Start: 12-27-2017 End: 08-09-2020 Cigarettes smoked current (pack per day) - Reported [facility] Start: 1995 [facility]igned [facility] Start: 05-07-2017 End: 07-18-2024 Tobacco smoking status NHIS Former smoker [facility] Tobacco smoking stat [facility] Tobacco smoking consumption unknown [facility] Start: 02-17-2023 [facility] Start: 1996 Sex Assigned At Female [facility] Start: 04-02-2023 Gender identity Identifies as female gender (finding) [facility] Start: 04-02-2023 Sexual orientation Bisexual (finding ) [facility] End: 07-30-2019 History of tobacco use Current smoker [facility] Start: 07-18-2024 Tobacco use and exposure Smokeless tobacco non-user [facility] Start: 07-18-2024 End: 12-14-2024 Alcoholic beverage intake Ex-drinker (finding) [facility] Start: 05-01-2020 End: 08-09-2020 Social connection and isolation panel [facility] In a typical week, h ow many times do you talk on the telephone with family, friends, or neighbors? Patient declined [facility] The thought of chiquitai ng myself has occurred to me Never [facility] Start: 08-06-2019 Alcohol Comment social [facility] Start: 02-22-2015 Sex Female (finding) [facility] Clinical Notes 03-14-2024 to 12-26-2024 Stacy Roman NP - 12/26/2024 1:00 PM TERRENCE Sawant - 12/14/2024 10:00 AM Gloria Brand, DO - 11/10/2024 3:30 PM Gloria Brand, DO - 08/24/2024 1:15 PM EST Note Date & Type Note Facility 12-26-2024 History of Present illness Narrative Reason for Appointment: Patient ID: Eloy Boston [...] spray, Each Nostril, As needed, Shake gently. Before first use, prime pump. After use, clean tip and replace cap. 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 Exam conducted with a pathology supervisor present. Vitals: Estimated body mass index is 25.3 kg/m as calculated from the following: Height as of 7/22/24: 5' 4 . Weight as of 08/01/24: 147 lb 6.4 oz. BP: No LMP recorded. ASSESSMENT & PLAN ICD-10-CM 1. Well woman exam with routine gynecological exam Z01.419 Pap Smear 2. depression ([facility]) F53.0 3. Anxiety, generalized ([facility] [facility] F41.1 Annual Exam: Patient presents today for [...] Timothy Bourgeois DO documented in this encounter [facility] 12-14-2024 History of Present illness Narrative Video Visit via Real-time Synchronous Audiovisual Provider Location: [facility] [address] [address] Patient Location: Patient's home Video Visit Consent Statement: I discussed risks, benefits, and alternatives of a real-time synchronous audiovisual consultation with the patient (and any accompanying persons) including the risks that the patient's personal health details and medical records will be discussed over real-time, synchronous, interactive video/audio/telecommunication technology, the visit will not be recorded without the express consent of both the provider and the patient, and that there are some limitations compared to [id number] evaluations. The patient consented to the presence of additional virtual and/or in-person participants. We elected to proceed. The patient's call-back number if disconnected is [phone] Subjective: Patient ID: Eloy Boston is a [...] Associated symptoms include eye itching, congestion, eye discharge and eye redness. Pertinent negatives include no fever, no decreased vision and no headaches. The following portions of the patient's history were reviewed and updated as appropriate: allergies, current medications, past family history, past medical history, past social history, past surgical history and problem list. Review of Systems Constitutional: Negative for fever. HENT: Positive for congestion. Eyes: Positive for discharge, redness and itching. Neurological: Negative for headaches. Past Medical History: Diagnosis Date ADHD (attention deficit hyperactivity disorder) Anemia Anxiety Iron (Fe) deficiency anemia Murmur PPD positive 2023 Seizures ([facility]) 2017 Past Surgical History: Procedure Laterality Date HEMORRHOIDECTOMY EXTERNAL X 2 N/A 07/02/2020 Performed by Rita Lakhani MD at [facility] TO[facility]TRA[facility] Current Outpatient Medications [...] Not Currently Types: Marijuana Comment: LAST USE 1ST WEEK OF JANUARY, gummies Allergies Allergen Reactions [...] of symptoms. Did suggest switching up her antihistamine, adding Flonase, and adding Pataday eyedrops. My suspicion [...] Angelo 12/14/24 1133 documented in this encounter [facility] 11-10-2024 History of Present illness Narrative IM PROGRESS NOTE Patient - Eloy Boston Age - 29 y.o. - 1995 ASSESSMENT & PLAN 1. Wilfred thyroiditis (Primary) -I reviewed the results of the most recent thyroid testing with the patient. T4 and TSH within normal range. -we discussed how thyroid function may fluctuate, with fluctuations in the degree of autoimmune activity with the Wilfred's -will need to continue monitoring her thyroid functioning on a routine basis, and may need to adjust treatment based on these changes 2. Bilateral sacroiliitis -patient with persistent and increasing discomfort in the low back and sacral area -given her history of autoimmune disease, need to rule out sacroiliitis - HLA-B27 antigen; Future - Erythrocyte Sedimentation Rate (ESR); Future 3. Attention deficit hyperactivity disorder (ADHD), unspecified ADHD type -patient feeling more pressured thoughts and anxiousness -maybe related to the Wilfred's, but also has underlying ADHD -consider starting low-dose methylphenidate 4. Persistent depressive disorder -symptoms returned following discontinuing of Celexa -patient now taking the Celexa 20 mg daily with improved functioning and improved thoughts -given the combination of depression plus ADHD, may benefit from seeing Psychiatry to evaluate a concise treatment plan Subjective 29-year-old female presents for recheck on her Wilfred's thyroiditis. Late last year, was found to have hyperthyroidism, and her TPO antibodies were positive. -recheck thyroid function tests including TSH and T4 were performed about one-month ago, and were in the normal range. -she is not having any symptoms such as palpitations, dry mouth -however, she did try going off of her Celexa, which has been prescribed for her persistent depression, and symptoms returned. She did have suicidal thoughts. She has restarted the Celexa at 20 mg daily. -she does feel like her ADHD is acting up more, she feels more anxious and having some pressured thoughts. She is wondering if this is related to her thyroiditis. In addition, she has had ongoing problems with low back discomfort. It is aching, and noted in her low back and sacral area. Is worse when she is sitting, or has to bend forward. Does not radiate down her legs. Is constant but will fluctuate up and down. -has been to therapy, utilizing HEP, nonsteroidals, pelvic floor exercises, heat and ice, none of which have provided any relief -is able to get some sleep if she takes a dose of baclofen at bedtime. A review of systems was negative except for the following: General: weight loss and 9 lb Psychiatric: anxiety and depression Musculoskeletal: joint stiffness and pain in back - lower, sacral area. Exam BP 90/62 (BP Site: Left Arm, BP Postition: Sitting, BP CUFF SIZE: S (7-9 inches)) Pulse 83 Temp 37.2 C (99 F) (Tympanic) Resp 16 Ht 161.9 cm (5' 3.74 ) Wt 60.9 kg (134 lb 3.2 oz) SpO2 99% BMI 23.22 kg/m Physical Exam Vitals reviewed. Constitutional: General: She is not in acute distress. Appearance: She is well-developed and normal weight. She is not toxic-appearing. HENT: Head: Normocephalic. Nose: Nose normal. Mouth/Throat: Mouth: Mucous membranes are moist. Eyes: General: No scleral icterus. Comments: Funduscopic exam unremarkable bilaterally Neck: Vascular: No carotid bruit. Comments: Thyroid nonenlarged and nontender Cardiovascular: Rate and Rhythm: Normal rate and regular rhythm. Pulses: Normal pulses. Heart sounds: No murmur heard. No gallop. Pulmonary: Effort: Pulmonary effort is normal. Breath sounds: No wheezing or rales. Abdominal: Palpations: Abdomen is soft. Musculoskeletal: General: Tenderness (PSIS bilaterally, SI joint bilaterally, L5 level bilaterally) present. Comments: Lumbar ROM: Flexion 45 with discomfort Extension 20 Lymphadenopathy: Cervical: No cervical adenopathy. Skin: General: Skin is warm and dry. Coloration: Skin is not jaundiced. Findings: No bruising. Neurological: Mental Status: She is alert and oriented to person, place, and time. Sensory: No sensory deficit. Motor: No weakness. Coordination: Coordination normal. Deep Tendon Reflexes: Reflexes are normal and symmetric. Psychiatric: Mood and Affect: Mood normal. Behavior: Behavior normal. Meds Current Outpatient Medications: baclofen (LIORESAL) 10 mg tablet, Take 0.5 tablets (5 mg total) by mouth 2 (two) times a day as needed for muscle spasms., Disp: 20 tablet, Rfl: 0 cetirizine (ZyrTEC) 10 mg tablet, Take 1 tablet (10 mg total) by mouth. prn, Disp: , Rfl: citalopram (CeleXA) 20 mg tablet, Take 1 tablet (20 mg total) by mouth in the morning., Disp: , Rfl: COMPLETE DHA 29 mg iron- 1 mg-200 mg combo pack, , Disp: , Rfl: Lab Results No visits with results within 1 Month(s) from this visit. Latest known visit with results is: Hospital Outpatient Visit on 09/27/2024 Component Date Value Ref Range Status T4, free 09/27/2024 0.92 0.61 - 1.60 ng/dL Final TSH 09/27/2024 2.01 0.49 - 4.67 uIU/mL Final Other Testing No results found. Greta Brand DO., [facility] Phys[facility] Office: [phone] documented in this encounter [facility] [employer] [facility] 08-24-2024 History of Present illness Narrative IM PROGRESS NOTE Patient - Eloy Boston Age - 29 y.o. - 1995 ASSESSMENT & PLAN Video Visit via Real-time Synchronous Audiovisual Provider [facility] [place] [facility] [address] [place] [address] Patient Location: Patient's home Video Visit Consent Statement: I discussed risks, benefits, and alternatives of a real-time synchronous audiovisual consultation with the patient (and any accompanying persons) including the risks that the patient's personal health details and medical records will be discussed over real-time, synchronous, interactive video/audio/telecommunication technology, the visit will not be recorded without the express consent of both the provider and the patient, and that there are some limitations compared to [id number] evaluations. The patient consented to the presence of additional virtual and/or in-person participants. We elected to proceed. 1. Influenza A (Primary) -patient with a very strong exposure to influenza A. -in spite of no personal positive test, needs to be treated due to household contacts. -start Tamiflu 1 tablet b.i.d. x5 days -continue symptomatic treatment with Tylenol and cool mist as needed. - oseltamivir (TAMIFLU) 75 mg capsule; Take 1 capsule (75 mg total) by mouth in the morning and 1 capsule (75 mg total) before bedtime. Dispense: 10 capsule; Refill: 0 Subjective 29-year-old female presents for evaluation of symptoms of myalgias, sore throat, head congestion. Also with a fairly intense posterior headache, and upper chest congestion and cough. Has been running a temperature approximately 100.0 for the past day. - she had her child at the care support representative yesterday, and he was diagnosed with influenza A. He was started on Tamiflu. A review of systems was negative except for the following: General: chills, fatigue, and malaise ENT: headaches, nasal congestion, and sore throat Respiratory: cough. Exam There were no vitals taken for this visit. Physical Exam Constitutional: General: She is not in acute distress. Appearance: She is not toxic-appearing. HENT: Head: Normocephalic. Eyes: General: No scleral icterus. Skin: Coloration: Skin is not jaundiced. Neurological: Mental Status: She is alert and oriented to person, place, and time. Psychiatric: Behavior: Behavior normal. Meds Current Outpatient Medications: cetirizine (ZyrTEC) 10 mg tablet, Take 1 tablet (10 mg total) by mouth. prn, Disp: , Rfl: cholecalciferol, vitamin D3, (VITAMIN D3) 5,000 units capsule, Take 1 capsule (5,000 Units total) by mouth in the morning., Disp: , Rfl: citalopram (CeleXA) 40 mg tablet, Take 1 tablet (40 mg total) by mouth in the morning., Disp: , Rfl: COMPLETE GER DHA 29 mg iron- 1 mg-200 mg combo pack, TAKE 1 TABLET AND 1 CAPSULE ONCE DAILY, Disp: , Rfl: fluticasone propionate (FLONASE) 50 mcg/actuation nasal spray, 1 spray., Disp: , Rfl: ibuprofen (ADVIL,MOTRIN) 200 mg tablet, Take by mouth., Disp: , Rfl: oseltamivir (TAMIFLU) 75 mg capsule, Take 1 capsule (75 mg total) by mouth in the morning and 1 capsule (75 mg total) before bedtime., Disp: 10 capsule, Rfl: 0 Lab Results Hospital Outpatient Visit on 07/29/2024 Component Date Value Ref Range Status Fibrinogen 07/29/2024 294 190 - 480 mg/dL Final T3 Total 07/29/2024 179 (H) 87 - 178 ng/dL Final Thyroperoxidase AB 07/29/2024 585 (H) <10 IU/mL Final Thyroglobulin Ab 07/29/2024 8 (H) <4.0 IU/mL Final Other Testing No results found. Greta Brand DO., [facility] Physicians Office: [phone] documented in this encounter [facility] 08-01-2024 History of Present illness Narrative Reason for Appointment: Patient ID: Eloy Boston is a 29 y.o. female who presents for medication f/u Patient presents today for Medication Follow Up appointment. MEDICATIONS Current Outpatient Medications Medication Instructions cetirizine (ZYRTEC) 10 mg, Oral, As needed cholecalciferol (VITAMIN D-3) 5,000 Units, Oral, Daily citalopram (CELEXA) 40 mg, Oral, Daily fluticasone (Flonase) 50 MCG/ACT nasal spray 1 spray, Each Nostril, As needed, Shake gently. Before first use, prime pump. After use, clean tip and replace cap. 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 SURGICAL HISTORY No past surgical history on file. REVIEW OF SYSTEMS Review of Systems: Review of Systems All other systems reviewed and are negative. OBJECTIVE Objective: Physical Exam Constitutional: Appearance: Normal appearance. She is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
[2024-12-29 14:08] LABS: Age Gdln ACOG Testing Note (.); IGP, rfx Aptima HPV ASCU Note (.)
== END 2024-12-26 20:49 | disposition home or self-care (01) ==
LOC: LAB 20:48
PROVIDERS: Visit Provider Obstetrics & Gynecology
DX: Z01.419 Encounter for gynecological examination (general) (routine) without abnormal findings (principal)
CPT/HCPCS: 88175

== ENCOUNTER 2025-01-29 17:16 | Emergency (ER) | payer OTHER, SELFPAY ==
[2025-01-29 17:55] VITALS: BP 133/83; PULSE 79; TEMP 36.8; O2SAT 100; BMI 24.0
--- OUTSIDE RECORDS SUMMARY | 2025-01-29 17:59 | XMS_ITS | CCD ---
Author Organization [facility] Care Team Providers Care Balance Bridge Assembler Name Role Phone Beasley Roxane Mayer Unavailable ROXANE BEASLEY Unavailable Unavail able MARI CROWELL Unavailable Unavailable HENRI PULLIAM Unavailable UnavailROXANE Kelly LEVI Unavailable Unavail able HENRI PULLIAM Unavailable UnavailROXANE KellyECCA Unavailable Unavail able SOLIS FRENCH Unavailable Unavailable Physician, No PCP Unavailable Unavailable YANETH RADFORD Unavailable Unavailable Physician, No PCP Unavailable Unavailable Ernestine Mckeon Unavailable Unavailable DARY BLACK I Referring Unavailable DARY BLACK I Referring Unavailable Unavailable Primary Care Provider UnavailJeri Ruiz Unavailable Greta Brand DO Primary Care Provider Greta Brand DO Primary Care Provider [phone] GRETA BRAND Referring Unavailable HOLLYS GRETA L Primary Care Unavailable HOLLYS GRETA L Referring Unavailable YUHAS, GRETA L Primary Care Unavailable HOLLYSGRETA L Attending Unavailable HOLLYS, GRETA L Primary Care Unavailable YUHAS, GRETA L Attending Unavailable HOLLYS, GRETA L Referring Unavailable PAUHAS, GRETA L Primary Care Unavailable HOLLYS, GRETA L Attending Unavailable HOLLYS, GRETA L Referring Unavailable YUHAS, GRETA L Primary Care Unavailable YUHAS, GRETA L Referring Unavailable YUHAS, GRETA L Primary Care Unavailable EAGLE MYERS Attending Unavailable JERI FOREMAN Referring Unavailable PAUHASGRETA Primary Care Unavailable HOLLYSGRETA L Attending Unavailable YUHAS, GRETA L Referring Unavailable GRETA BRAND Primary Care Unavailable GRETA BRAND Attending Unavailable GRETA BRAND Referring Unavailable GRETA BRAND Primary Care Unavailable GRETA BRAND Referring Unavailable GRETA BRAND Primary Care Unavailable GRETA BRAND Referring Unavailable GRETA BRAND Primary Care Unavailable GRETA BRAND Referring Unavailable GRETA BRAND Primary Care Unavailable Allergies Allergy Classification Reported Allergen(s) Allergy Type Date of Onset Reaction(s) Facility (14 sources) Latex; Translations: [LATEX] Propensity to adverse reactions 9 Rash [facility] Work Phone: (18 sources) Prochlorperazin e; Translations: [PROCHLORPERAZI NE] Drug Allergy 8 Abnormal Behavior [facility] (4 sources) Latex Propensity to adverse reactions to drug 9 [facility] Medications Current Medications Medication Drug Class(es) [...] Active cetirizine hydrochloride 10 mg oral tablet (14 sources) Histamine-1 Receptor Antagonist cetirizine (ZyrTEC) 10 MG tablet Indications: Seasonal Allergic Rhinitis Take 10 mg by mouth if needed for allergies Active cholecalciferol 0.125 mg oral capsule (13 sources) Vitamin D take 1 capsule by [...] tablet (18 sources) Serotonin Reuptake Inhibitor Start: 05-13-2025 take 1 tablet by mouth in the [...] 50 tablet 0 08/05/2023 11/13/2023 Active COMPLETE ANNETTE DHA 29 mg iro n- 1 mg-200 mg combo pack (4 sources) Start: 03-05-2023 COMPLETE DHA 29 mg iron- 1 mg-200 mg combo pack 03/05/2023 Active Start: 03-05-2023 COMPLETE ANNETTE DHA 29 mg iron- 1 mg-200 mg [...] for constipation 30 capsule 5 08/05/2023 Active [id number] 0.3 ml EPINEPHrine 1 mg/ml auto-injector (4 [...] propionate 0.05 mg/actuat metered dose nasal spray (14 sources) Corticosteroid Start: 12-14-2024 take 2 spray(s) [...] On Own) ibuprofen 200 mg oral tablet (13 sources) Nonsteroidal Anti-inflammatory Drug End: 11-10-2024 ibuprofen 200 MG tablet Take by mouth Active lactobacillus acidophilus (1 source) Lactobacillus acidophilus (PROBIOTIC ORAL) Indications: Fortify, 30 Billion Take by mouth. Active magic mouthwash susp equal parts viscous lidocaine 2%, diphenhydramine 12.5mg/5mL, maalox 743ue-807eb-92mv/5m L (1 source) Start: 12-27-2017 End: 12-30-2017 magic mouthwash susp equal parts viscous lidocaine 2%, diphenhydramine 12.5mg/5mL, maalox 159eb-262gl-27hm/5m L Swish and spit 5 mL every [...] bedtime. 10 capsule 08/24/2024 Active polymyxin b 80611 unt/ml / trimethoprim 1 mg/ml ophthalmic solution [...] morning. 360 capsule 0 08/05/2023 08/04/2024 Active Swbtrg-QmEwx-AhIyq- FA-CA-[place] (Complete Annette DHA) 29-1-200 & 200 MG misc (1 source) Start: 03-05-2023 Huekmp-DuSwg-ZbKoh- FA-CA-[place] (Complete Annette DHA) 29-1-200 & 200 MG misc TAKE 1 TABLET AND 1 CAPSULE ONCE DAILY 0 03/05/2023 Active w/o A Vit-Fe Fum-FA (AzesChew /) 13-1 MG chewable tablet (10 sources) w/o A Vit-Fe Fum-FA (AzesChew /) [...] [Attention-deficit hyperactivity disorder, unspecified type] 07-18-2024 Chronic Deficiency and other anemia (1 source) Iron deficiency anemia secondary to inadequate dietary iron intake; Translations: [Other iron deficiency anemias] 07-18-2024 Episodic Disorders usually diagnosed in infancy childhood [...] virus with other respiratory manifestations] 08-24-2024 Episodic Mood disorders (2 sources) Dysthymic disorder; Translations: [Dysthymic disorder] 07-18-2024 Chronic Nonmalignant breast conditions (3 sources) Unspecified lump in the right breast, unspecified quadrant; Translations: [Mass of breast, right] Onset: 08-07-2016 08-07-2016 Other aftercare (2 sources) Patient encounter status; Translations: [Other terminal manager (current) drug therapy] 08-01-2024 Episodic Other upper [...] 08-17-2015 08-17-2015 Chronic Thyroid disorders (5 sources) Wilfred thyroiditis; Translations: [Autoimmune thyroiditis] Onset: 07-29-2024 11-10-2024 Chronic Unclassified (1 source) Unknown / UNK(Unknown) Onset: 11-20-2017 Unclassified (1 source) Thyroid check Onset: 11-10-2024 Unclassified (2 sources) Low back pain, unspecified; Translations: [Low back pain, unspecified] Onset: 07-18-2024 Unclassified (1 source) New Patient Onset: 07-18-2024 Viral infection (2 sources) Viral infection, unspecified; Translations: [Viral infection, unspecified] Onset: 12-27-2017 Episodic Past or Other Problems Problem Classification Problem Date Documented Date Episodic/Chronic Coagulation and hemorrhagic disorders (1 source) Spontaneous ecchymoses; Translations: [Spontaneous ecchymoses] Onset: 07-29-2024 Episodic Deficiency and other anemia (7 sources) Iron deficiency anemia; Translations: [Iron deficiency anemia, unspecified] Onset: 08-17-2015 08-17-2015 Episodic Deficiency and other anemia (4 sources) Megaloblastic anemia due to decreased intake of vitamin B>12<; Translations: [Other vitamin B12 deficiency anemias] Onset: 03-23-2020 05-02-2020 Episodic Deficiency and other anemia (2 sources) Other iron deficiency anemias; Translations: [Other iron deficiency anemias] Onset: 05-02-2020 Episodic Deficiency and other anemia (1 source) Anemia, unspecified; Translations: [Anemia, unspecified] Onset: 07-15-2024 Episodic Gastritis and duodenitis (3 sources) Gastritis; Translations: [Gastritis] Onset: 08-17-2015 08-17-2015 Episodic Headache; including migraine (10 sources) Cluster headache; Translations: [Migraine] Onset: 08-17-2015 Resolved: 05-02-2020 08-17-2015 Chronic Headache; including migraine (3 sources) Headache; Translations: [Headache] Onset: 05-07-2017 Episodic Miscellaneous mental health disorders (16 sources) depression; Translations: [ depression] Onset: 03-14-2024 03-14-2024 Episodic Mood disorders (4 sources) Mood disorders [...] Test Name Value Interpretation Reference Range Facility THYROID PROFILE INCLUDES TSH FT4on 01-17-2025 Free T4 [Mass/Vol] 0.75 ng/dL Normal 0.61-1.60 [facility] Comment on above: Performed By: #### 1 4979-9 #### [facility] ([id number]) [address] [place] [address] #### CBCA, PINR #### [facility] ([id number]) [address] [facility], [address] [place] [address] TSH 1.91 uIU/mL Normal 0.49-4.67 [facility] Comment on above: Performed By: #### 1 4979-9 #### [facility] ([id number]) [address] [place] [address] #### CBCA, PINR #### [facility] ([id number]) [address] [place] [address] IGP,APTIMA HPV,AGE GDLNon AGE GDLN ACOG TESTING Note . [facility] Comment on above: TESTS RESULT FLAG UN ITS REF RANGE LAB Clinician Provided Cytology Information Source.............Cervix;Endocervix No. of containers..01 ThinPrep Vial Age Mauro MORRIS Erin... FLAG LEGEND: L-Low Normal,H-High Normal,LL-Alert Low,HH-Alert High <-Panic Low,>-Panic High,A-Abnormal,AA-Critical Abnormal Performed at: 01 =G [facility]ly [facility] [address] [place] [address] Rohini Lemos MD, IGP, RFX APTIMA HPV ASCU Note . [facility] Comment on above: TESTS RESULT FLAG UN ITS REF RANGE LAB DIAGNOSIS: 02 NEGATIVE FOR INTRAEPITHELIAL LESION OR MALIGNANCY. Specimen adequacy: 02 Satisfactory for evaluation. Endocervical and/or squamous metaplastic cells (endocervical component) are present. Performed by: 02 Rich Aparicio Clothing Worker (ASCP) . 02 Note: Note 02 The Pap smear is a screening test designed to aid in the detection of premalignant and malignant conditions of the uterine cervix. It is not a diagnostic procedure and should not be used as the sole means of detecting cervical cancer. Both false-positive and false-negative reports do occur. Test Methodology: Note 02 This liquid based ThinPrep(R) pap test was screened with the use of an image guided system. . 02 The HPV DNA reflex criteria were not met with this specimen result therefore, no HPV testing was performed. FLAG LEGEND: L-Low Normal,H-High Normal,LL-Alert Low,HH-Alert High <-Panic Low,>-Panic High,A-Abnormal,AA-Critical Abnormal Performed at: [address] [address] Rohini Lemos MD, Performed at: = - [facility] [address] [id number] Filter Washer: Rohini Lemos MD, Phone: [phone] Performed at: [facility] [address] [id number] Filter Washer: Rohini Lemos MD, Phone: [phone] [facility] Photometric method (Bld) [Velocity]on 11-10-2024 ESR, ERYTHROCYTE SEDIMENTATION RATE 6 mm/h Normal 0-20 [facility] Comment on above: Performed By: #### 8 2477-1, 28247-0 #### [facility] ([id number]) [address], [address] [place] [address] HLA-B27 FC Ql (Bld/Tiss)on 0 11-10-2024 HLA-B27 TYPING Negative Normal NEG [facility] Comment on above: Performed By: #### 8 2477-1, 37934-8 #### [facility] ([id number]) [address] [place] [address] FREE T4on 09-27-2024 Free T4 [Mass/Vol] 0.92 ng/dL Normal 0.61-1.60 [facility] Comment on above: Performed By: #### 3 016-3, 3024-7 #### [facility] ([id number]) [address], [address] [place] [address] TSH Qnon 09-27-2024 TSH 2.01 uIU/mL Normal 0.49-4.67 [facility] Comment on above: Performed By: #### 3 016-3, 3024-7 #### [facility] ([id number]) [address], [address] [place] [address] Fibrinogen Coagulation.deriv ed (PPP) [Mass/Vol]on 07-29-2024 FIBRINOGEN 294 mg/dL Normal 190-480 [facility] Comment on above: Performed By: #### 4 8664-7, 3053-6, THYRAB #### [facility] ([id number]) [address], [address] [place] [address] T3 [Mass/Vol]on 07-29-2024 TOTAL T3 (TT3) 179 ng/dL High 87-178 [facility] Comment on above: Performed By: #### 4 8664-7, 3053-6, THYRAB #### [facility] ([id number]) [address], [address] [place] [address] THYROID ANTIBODIESon 025 Thyroglobulin Ab Qn 8 [IU]/mL High <4.0 [facility] Comment on above: Performed By: #### 4 8664-7, 3053-6, THYRAB #### [facility] ([id number]) [address], [address] [place] [address] TPO Ab Qn 585 [IU]/mL High <10 [facility] Comment on above: Performed By: #### 4 8664-7, 3053-6, THYRAB #### [facility] ([id number]) [address], [address] [place] [address] XR SPINE CERVICAL 3 VWS OR L [...] Rocha MD on 07/19/2024 2:19 PM Normal [facility] XR SPINE LUMBAR 2 OR 3 VWSon [...] Lackey MD on 07/19/2024 2:15 PM Normal [facility] CBC AND AUTO DIFFon 07-18-20 ABSOLUTE BASOPHIL 0.0 X10E9/L Normal 0.0-0.2 [facility] Comment on above: Performed By: #### C BCA, CMP, FEPR, TSHR, 88767-5, 3024-7, 87883-2 #### [facility] ([id number]) [address], [address] [place] [address] ABSOLUTE NEUTROPHIL 4.4 X10E9/L Normal 1.5-6.6 [facility] Comment on above: Performed By: #### C BCA, CMP, FEPR, TSHR, 15274-0, 3024-7, 67809-8 #### [facility] ([id number]) [address] [address] Basophils/100 WBC (Bld) 0.3 % Normal [facility] Comment on above: Performed By: #### C BCA, CMP, FEPR, TSHR, 93376-9, 3024-7, 93819-9 #### [facility] ([id number]) [address], [address] [address] Eosinophils (Bld) [#/Vol] 0.0 10*3/uL Normal 0.0-0.4 [facility] Comment on above: Performed By: #### C BCA, CMP, FEPR, TSHR, 05879-5, 3023-7, 61724-5 #### [facility] ([id number]) [address] [address] Eosinophils/100 WBC (Bld) 0.7 % Normal [facility] Comment on above: Performed By: #### C BCA, CMP, FEPR, TSHR, 32810-4, 302-7, 48964-9 #### [facility] ([id number]) [address] [address] Erythrocyte distribution width (RBC) [Ratio] 14.1 % Normal 11.5-15.0 [facility] Comment on above: Performed By: #### C BCA, CMP, FEPR, TSHR, 62284-4, 4-7, 11263-2 #### [facility] ([id number]) [address] [address] Hematocrit (Bld) [Volume fraction] 40.6 % Normal 35-47 [facility] Comment on above: Performed By: #### C BCA, CMP, FEPR, TSHR, 46001-1, 3024-7, 71467-3 #### [facility] ([id number]) [address], [address] [place] [address] Hemoglobin (Bld) [Mass/Vol] 13.4 g/dL Normal 11.7-15.5 [facility] Comment on above: Performed By: #### C BCA, CMP, FEPR, TSHR, 14904-4, 3024-7, 80719-4 #### [facility] ([id number]) [address], [facility] [address] [place] [address] Lymphocytes (Bld) [#/Vol] 1.8 10*3/uL Normal 1.0-3.5 [facility] Comment on above: Performed By: #### C BCA, CMP, FEPR, TSHR, 70125-1, 3024-7, 24191-9 #### [facility] ([id number]) [address] [address] Lymphocytes/100 WBC (Bld) 27.2 % Normal [facility] Comment on above: Performed By: #### C BCA, CMP, FEPR, TSHR, 06355-1, 3024-7, 06550-8 #### [facility] ([id number]) [address] [address] MCH (RBC) [Entitic mass] 30.8 pg Normal 27-34 [facility] Comment on above: Performed By: #### C BCA, CMP, FEPR, TSHR, 37492-5, 3024-7, 60952-5 #### [facility] ([id number]) [address] [address] [place] [address] MCHC (RBC) [Mass/Vol] 33.1 g/dL Normal 32-36 [facility] Comment on above: Performed By: #### C BCA, CMP, FEPR, TSHR, 18647-7, 3024-7, 65946-9 #### [facility] ([id number]) [address] [address] [place] [address] MCV (RBC) [Entitic vol] 93 fL Normal 80-100 [facility] Comment on above: Performed By: #### C BCA, CMP, FEPR, TSHR, 55585-7, 3024-7, 75011-0 #### [facility] ([id number]) [address], [address] [place] [address] Monocytes (Bld) [#/Vol] 0.5 10*3/uL Normal 0-0.9 [facility] Comment on above: Performed By: #### C BCA, CMP, FEPR, TSHR, 43907-7, 3024-7, 50595-4 #### [facility] ([id number]) [address], [address] [place] [address] Monocytes/100 WBC (Bld) 6.7 % Normal [facility] Comment on above: Performed By: #### C BCA, CMP, FEPR, TSHR, 34094-0, 3024-, 40974-5 #### [facility] ([id number]) [address], [address] [place] [address] Neutrophils/100 WBC (Bld) 65.1 % Normal [facility] Comment on above: Performed By: #### C BCA, CMP, FEPR, TSHR, 78154-9, 3024-7, 78483-1 #### [facility] ([id number]) [address], [address] [place] [address] Platelet mean volume (Bld) [Entitic vol] 9.5 fL Normal 7-12 [facility] Comment on above: Performed By: #### C BCA, CMP, FEPR, TSHR, 45134-6, 3024-7, 02189-2 #### [facility] ([id number]) [address], [address] [place] [address] Platelets (Bld) [#/Vol] 243 10*3/uL Normal 150-450 [facility] Comment on above: Performed By: #### C BCA, CMP, FEPR, TSHR, 74278-0, 3024-7, 80127-2 #### [facility] ([id number]) [address], [address] [place] [address] RBC COUNT 4.36 X10E12/L Normal 3.80-5.20 [facility] Comment on above: Performed By: #### C BCA, CMP, FEPR, TSHR, 29474-8, 3024-7, 97880-4 #### [facility] ([id number]) [address], [address] [place] [address] WBC (Bld) [#/Vol] 6.7 10*3/uL Normal 4.0-11.0 [facility] Comment on above: Performed By: #### C BCA, CMP, FEPR, TSHR, 45968-8, 3024-7, 25231-6 #### [facility] ([id number]) [address], [address] [place] [address] COMPREHENSIVE METABOLIC PANE Rodrigo 07-18-2024 Albumin [Mass/Vol] 4.6 g/dL Normal 3.2-5.3 [facility] Comment on above: Performed By: #### C BCA, CMP, FEPR, TSHR, 04439-6, 3024-7, 96721-2 #### [facility] ([id number]) [address], [address] [place] [address] ALP [Catalytic activity/Vol] 59 U/L Normal 39-130 [facility] Comment on above: Performed By: #### C BCA, CMP, FEPR, TSHR, 75129-4, 3024-7, 83926-5 #### [facility] ([id number]) [address], [address] [place] [address] ALT [Catalytic activity/Vol] 17 U/L Normal 0-31 [facility] Comment on above: Performed By: #### C BCA, CMP, FEPR, TSHR, 03034-4, 3024-7, 43640-8 #### [facility] ([id number]) [address], [address] [place] [address] Anion gap [Moles/Vol] 7 mmol/L Normal 5-15 [facility] Comment on above: Performed By: #### C BCA, CMP, FEPR, TSHR, 55358-8, 3024-7, 51684-9 #### [facility] ([id number]) [address], [address] [place] [address] AST [Catalytic activity/Vol] 16 U/L Normal 0-41 [facility] Comment on above: Performed By: #### C BCA, CMP, FEPR, TSHR, 91218-8, 3024-7, 04036-3 #### [facility] ([id number]) [address], [address] [place] [address] Bilirubin [Mass/Vol] 0.4 mg/dL Normal 0.3-1.2 [facility] Comment on above: Performed By: #### C BCA, CMP, FEPR, TSHR, 49077-0, 3024-7, 64885-4 #### [facility] ([id number]) [address], [address] [place] [address] Calcium [Mass/Vol] 9.1 mg/dL Normal 8.5-10.5 [facility] Comment on above: Performed By: #### C BCA, CMP, FEPR, TSHR, 31097-0, 3024-7, 96976-1 #### [facility] ([id number]) [address], [address] [place] [address] Chloride [Moles/Vol] 105 mmol/L Normal 98-109 [facility] Comment on above: Performed By: #### C BCA, CMP, FEPR, TSHR, 24520-4, 3024-7, 07108-1 #### [facility] ([id number]) [address], [address] [place] [address] CO2 [Moles/Vol] 28 mmol/L Normal 22-32 [facility] Comment on above: Performed By: #### C BCA, CMP, FEPR, TSHR, 22585-8, 3024-7, 76007-1 #### [facility] ([id number]) [address], [address] [address] Creatinine [Mass/Vol] 0.53 mg/dL Normal 0.40-1.00 [facility] Comment on above: Result Comment: METH OD TRACEABLE TO IDMS STANDARD Performed By: #### C BCA, CMP, FEPR, TSHR, 04064-5, 3024-7, 25509-5 #### [facility] ([id number]) [address], [address] [place] [address] eGFR (CKD-EPI) NON-RACE DEPENDENT >90 Normal >59 [facility] Comment on above: Result Comment: Reported eGFR is based on the CKD-EPI 2020 equation that does not use a race coefficient. Performed By: #### C BCA, CMP, FEPR, TSHR, 40712-4, 3024-7, 07665-8 #### [facility] ([id number]) [address], [address] [place] [address] Glucose [Mass/Vol] 88 mg/dL Normal 65-99 [facility] Comment on above: Performed By: #### C BCA, CMP, FEPR, TSHR, 08362-7, 3024-7, 34918-0 #### [facility] ([id number]) [address] [address] [place] [address] Potassium [Moles/Vol] 4.0 mmol/L Normal 3.5-5.0 [facility] Comment on above: Performed By: #### C BCA, CMP, FEPR, TSHR, 80880-8, 3024-7, 86487-5 #### [facility] ([id number]) [address], [address] [address] Protein [Mass/Vol] 7.0 g/dL Normal 6.0-8.0 [facility] Comment on above: Performed By: #### C BCA, CMP, FEPR, TSHR, 77904-8, 3024-7, 70838-5 #### [facility] ([id number]) [address], [address] [address] Sodium [Moles/Vol] 140 mmol/L Normal 134-146 [facility] Comment on above: Performed By: #### C BCA, CMP, FEPR, TSHR, 56975-7, 3024-7, 59448-4 #### [facility] ([id number]) [address] [address] Urea nitrogen [Mass/Vol] 21 mg/dL Normal 5-23 [facility] Comment on above: Performed By: #### C BCA, CMP, FEPR, TSHR, 57177-6, 3024-7, 04452-1 #### [facility] ([id number]) [address], [address] [address] ESR Photometric method (Bld) [Velocity]on 07-18-2024 ESR, ERYTHROCYTE SEDIMENTATION RATE 6 mm/h Normal 0-20 [facility] Comment on above: Performed By: #### C BCA, CMP, FEPR, TSHR, 25603-0, 3024-7, 19785-3 #### [facility] ([id number]) [address], [address] [address] FREE T4on 07-18-2024 Free T4 [Mass/Vol] 0.74 ng/dL Normal 0.61-1.60 [facility] Comment on above: Performed By: #### C BCA, CMP, FEPR, TSHR, 98950-7, 3024-7, 83796-7 #### [facility] ([id number]) [address], [address] [address] IRON PROFILEon 07-18-2024 Iron [Mass/Vol] 119 ug/dL Normal 50-170 [facility] Comment on above: Performed By: #### C BCA, CMP, FEPR, TSHR, 57518-5, 3024-7, 49014-9 #### [facility] ([id number]) [address] [address] IRON BINDING 354 ug/dL Normal 250-425 [facility] Comment on above: Performed By: #### C BCA, CMP, FEPR, TSHR, 63295-4, 3024-7, 84638-6 #### [facility] ([id number]) [address] [address] IRON SATURATION 34 % SATURATION Normal 15-50 [facility] Comment on above: Performed By: #### C BCA, CMP, FEPR, TSHR, 54449-2, 3024-7, 26912-8 #### [facility] ([id number]) [address] [address] Nuclear Ab IA Ql (S)on 07-18 [place] Screen w/reflex Negative Normal NEG [facility] Comment on above: Result Comment: Testing performed using multiplex flow immunoassay. Eleven different antigens associated with systemic autoimmune diseases (dsDNA,Sm,Sm/MANHOLE BUILDER,MANHOLE BUILDER,Chromatin, SSA,SSB,Luz-1,Scl70,Ribo P,Centromere B) are included in this screening test. Performed By: #### C BCA, CMP, FEPR, TSHR, 95278-5, 3024-7, 07733-3 #### [facility] ([id number]) [address] [address] TSH WITH REFLEXon 07-18-2024 TSH 4.90 uIU/mL High 0.49-4.67 [facility] Comment on above: Performed By: #### C BCA, CMP, FEPR, TSHR, 15372-7, 3024-7, 97778-2 #### [facility] ([id number]) [address], [address] [place] [address] APTTon 07-15-2024 aPTT Coag (Bld) [Time] [facility] Comment on above: NEW REFERENCE RANGE PERFORMED AT [address] [address] The copy-to physician of this order is GRETA Randall ; , ; CBC AND AUTO DIFFon 07-15-20 ABSOLUTE BASOPHIL 0.1 X10E9/L Normal 0.0-0.2 [facility] Comment on above: Performed By: #### 1 4979-9 #### [facility] ([id number]) [address] [place] [id number] #### CBCA, PINR #### [facility] ([id number]) [address] [place] [address] ABSOLUTE NEUTROPHIL 3.6 X10E9/L Normal 1.5-6.6 [facility] Comment on above: Performed By: #### 1 4979-9 #### [facility] ([id number]) [address] [place] [id number] #### CBCA, PINR #### [place] [facility] ([id number]) [address], [address] [place] [address] Basophils/100 WBC (Bld) 1.6 % Normal [facility] Comment on above: Performed By: #### 1 4979-9 #### [facility] ([id number]) [address] [place] [address] #### CBCA, PINR #### [facility] ([id number]) [address], [address] [place] [address] Eosinophils (Bld) [#/Vol] 0.0 10*3/uL Normal 0.0-0.4 [facility] Comment on above: Performed By: #### 1 4979-9 #### [facility] ([id number]) [address] [place] [address] #### CBCA, PINR #### [facility] ([id number]) [address], [address] [place] [address] Eosinophils/100 WBC (Bld) 0.7 % Normal [facility] Comment on above: Performed By: #### 1 4979-9 #### [facility] ([id number]) [address] [place] [address] 19276 #### CBCA, PINR #### [facility] ([id number]) [address] [place] [address] Erythrocyte distribution width (RBC) [Ratio] 14.0 % Normal 11.5-15.0 [facility] Comment on above: Performed By: #### 1 4979-9 #### [facility] ([id number]) [address] [place] [address] 18378 #### CBCA, PINR #### [facility] ([id number]) [address], [address] [place] [address] Hematocrit (Bld) [Volume fraction] 39.8 % Normal 35-47 [facility] Comment on above: Performed By: #### 1 4979-9 #### [facility] ([id number]) [address] [place] [address] 74[address] #### CBCA, PINR #### [facility] ([id number]) [address], [address] [place] [address] Hemoglobin (Bld) [Mass/Vol] 13.5 g/dL Normal 11.7-15.5 [facility] Comment on above: Performed By: #### 1 4979-9 #### [facility] ([id number]) [address] [place] [address] 825[address] #### CBCA, PINR #### [facility] ([id number]) [address], [address] [place] [address] Lymphocytes (Bld) [#/Vol] 1.8 10*3/uL Normal 1.0-3.5 [facility] Comment on above: Performed By: #### 1 4979-9 #### [facility] ([id number]) [address] [place] [address] 26217 #### CBCA, PINR #### [facility] ([id number]) [address], [address] [place] [address] Lymphocytes/100 WBC (Bld) 30.6 % Normal [facility] Comment on above: Performed By: #### 1 4979-9 #### [facility] ([id number]) [address] [place] [address] 35607 #### CBCA, PINR #### [facility] ([id number]) [address], [address] [place] [address] MCH (RBC) [Entitic mass] 31.3 pg Normal 27-34 [facility] Comment on above: Performed By: #### 1 4979-9 #### [facility] ([id number]) [address] [place] [address] 59099 #### CBCA, PINR #### [facility] ([id number]) [address], [address] [place] [address] MCHC (RBC) [Mass/Vol] 33.8 g/dL Normal 32-36 [facility] Comment on above: Performed By: #### 1 4979-9 #### [facility] ([id number]) [address] [place] [address] 98438 #### MAURICE, PINR #### [facility] ([id number]) [address] [place] [address] MCV (RBC) [Entitic vol] 93 fL Normal 80-100 [facility] Comment on above: Performed By: #### 1 4979-9 #### [facility] ([id number]) [address] [place] [address] 00559 #### CBCLuis, PINR #### [facility] ([id number]) [address] [place] [address] Monocytes (Bld) [#/Vol] 0.4 10*3/uL Normal 0-0.9 [facility] Comment on above: Performed By: #### 1 4979-9 #### [facility] ([id number]) [address] [place] [address] 11076 #### MAURICE, PINR #### [facility] ([id number]) [address] [place] [address] Monocytes/100 WBC (Bld) 7.4 % Normal [facility] Comment on above: Performed By: #### 1 4979-9 #### [facility] ([id number]) [address] [place] [address] 32285 #### CBCA, PINR #### [facility] ([id number]) [address] [place] [address] Neutrophils/100 WBC (Bld) 59.7 % Normal [facility] Comment on above: Performed By: #### 1 4979-9 #### [facility] ([id number]) [address] [place] [address] #### CBCA, PINR #### [facility] ([id number]) [address] [place] [address], [address] [place] [address] Platelet mean volume (Bld) [Entitic vol] 9.4 fL Normal 7-12 [facility] Comment on above: Performed By: #### 1 4979-9 #### [facility] ([id number]) [address] [place] [address] 29496 #### CBCA, PINR #### [facility] ([id number]) [address] [place] [address], [facility] [address] [place] [address] Platelets (Bld) [#/Vol] 241 10*3/uL Normal 150-450 [facility] Comment on above: Performed By: #### 1 4979-9 #### [facility] ([id number]) [address] [place] [address] 21823 #### CBCA, PINR #### [facility] ([id number]) [address] [place] [address], [address] [place] [address] RBC COUNT 4.29 X10E12/L Normal 3.80-5.20 [facility] Comment on above: Performed By: #### 1 4979-9 #### [facility] ([id number]) [address] [place] [address] #### CBCA, PINR #### [facility] ([id number]) [address] [place] [address], [address] [place] [address] WBC (Bld) [#/Vol] 6.0 10*3/uL Normal 4.0-11.0 [facility] Comment on above: Performed By: #### 1 4979-9 #### [facility] ([id number]) [address] [place] [address] 00167 #### CBCA, PINR #### [facility] ([id number]) [address] [place] [address] PROTIME AND INRon 07-15-2024 INR Coag (PPP) [Relative time] 1.0 {INR} Normal 0.8-1.1 [facility] Comment on above: Performed By: #### 1 4979-9 #### [facility] ([id number]) [address] [place] [address] 44667 #### CBCA, PINR #### [facility] ([id number]) [address] [place] [address] PT Coag (PPP) [Time] 11.1 s Normal 9.8-13.2 [facility] Comment on above: Performed By: #### 1 4979-9 #### [facility] ([id number]) [address] [place] [address] 31937 #### CBCA, PINR #### [facility] ([id number]) [address] [place] [address] aPTT Coag (Bld) [Time]on [facility] aPTT Coag (PPP) [Time]on aPTT Coag (Bld) [Time] 32 s Normal 26-37 [facility] Comment on above: Result Comment: NEW REFERENCE RANGE Performed By: #### 1 4979-9 #### [facility] ([id number]) [address] [place] [address] 82399 #### CBCA, PINR #### [facility] ([id number]) [address] [place] [address] ALL CBC WITH AUTO DIFFon BASOPHILS ABSOLUTE AUTO 0.0 [facility] Basophils/100 WBC (Bld) 0.1 % Low 0.2 - 2.0 % [facility] Eosinophils/100 WBC (Bld) 0.4 % Low 0.9 - 7.0 % [facility] Erythrocyte distribution width (RBC) [Ratio] 13.4 % 11.0 - 15.0 % [facility] Hematocrit (Bld) [Volume fraction] 29.5 % Low 36.0 - 48.0 % [facility] Hemoglobin (Bld) [Mass/Vol] 9.2 g/dL Low 12.0 - 16.0 g/dL [facility] IMMATURE GRANULOCYTES ABS AUTO 0.08 High [facility] Immature granulocytes/100 WBC (Bld) 0.8 % High 0.0 - 0.5 % [facility] Interpretation and review of laboratory results Abnormal [facility] LYMPHOCYTES ABSOLUTE AUTO 1.8 [facility] Lymphocytes/100 WBC (Bld) 19.1 % Low 20.5 - 60.0 % [facility] MCH (RBC) [Entitic mass] 26.5 pg Low 26.7 - 34.0 pg [facility] MCHC (RBC) [Mass/Vol] 31.2 g/dL 29.9 - 35.2 g/dL [facility] MCV (RBC) [Entitic vol] 85.0 fL 81.0 - 99.0 fL [facility] MONOCYTES ABSOLUTE AUTO 0.8 [facility] Monocytes/100 WBC (Bld) 8.0 % 1.7 - 12.0 % [facility] NEUTROPHILS ABSOLUTE AUTO 6.9 High [facility] Neutrophils/100 WBC (Bld) 71.6 % 43.0 - 75.0 % [facility] Platelet mean volume (Bld) [Entitic vol] 10.5 fL 9.5 - 13.5 fL [facility] TBH EO # 0.0 [facility] PLT 192 [facility] RBC 3.47 Low [facility] WBC 9.6 [facility] XR CHEST (2 VW)on 07-09-2021 XR [...] Hamzah Kaba MD 07/09/21 Final result Normal [facility] POC Rapid Strep Aon 12-28-19 Interpretation and review of laboratory results Normal Invalid Interpretation Code [place] Streptococcus pyogenes antigen presence Negative Invalid Interpretation Code Negative [place] Basic Metabolic Panelon 05-0 Anion gap 8.0 mmol/L Normal 6.0-18.0 [facility] Comment on above: Result Comment: PLEA SE NOTE:The calculated Anion Gap(AGAP) does not include Potassium. Performed By: #### 6 9405-9, 32868-5u9, 3040-3, 33374-0, 87289-6 ####[facility], [address] [place], [place]. Calcium 9.3 mg/dL Normal 8.9-10.3 [facility] Comment on above: Performed By: #### 6 9405-9, 57485-1n1, 3040-3, 79328-2, 67529- 3 ####[facility], [address] [place], [place]. Chloride 106 mmol/L Normal 98-107 [facility] Comment on above: Performed By: #### 6 9405-9, 09372-6u2, 3040-3, 39501-9, 36813- 3 ####[facility], [address] [place] CO2 25 mmol/L Normal 22-32 [facility] Comment on above: Performed By: #### 6 9405-9, 20699-2d1, 3040-3, 02485-1, 54705- 3 ####[facility], [address]. Creatinine 0.65 mg/dL Low 0.66-1.30 [facility] Comment on above: Performed By: #### 6 9405-9, 25330-7l2, 3040-3, 77690-7, 36143- 3 ####[facility], [address] [place], [place]. Glucose mass conc 88 mg/dL Normal 70-110 [facility] Comment on above: Performed By: #### 6 9405-9, 18383-4f1, 3040-3, 40140-1, 61725- 3 ####[facility], [address] [place], [place]. Potassium molar conc 3.5 mmol/L Low 3.6-5.1 [facility] Comment on above: Performed By: #### 6 9405-9, 37214-5t2, 3040-3, 72498-7, 80484- 3 ####[facility], [address] [place], [place]. Sodium 139 mmol/L Normal 136-145 [facility] Comment on above: Performed By: #### 6 9405-9, 53171-5g0, 3040-3, 17647-4, 26867- 3 ####[facility], [address] [place], [place]. Urea nitrogen mass conc (BldV) 10 mg/dL Normal 8-20 [facility] Comment on above: Performed By: #### 6 9405-9, 39159-4z3, 3040-3, 94333-9, 33803- 3 ####[facility], [address] [place], [place]. CBCon 11-21-2017 Erythrocyte distribution width Entitic volume (RBC) 20.1 % High 11.0-14.8 [facility] Comment on above: Performed By: #### 2 4317-0 ####[facility], [address] [place], [place]. Erythrocytes (RBC) 4.57 million/mcL Normal 3.80-5.10 [facility] Comment on above: Performed By: #### 2 4317-0 ####[facility], [address] [place], [place]. Hematocrit (HCT) 34.8 % Low 35.0-45.0 [facility] Comment on above: Performed By: #### 2 4317-0 ####[facility], [address] [place], [place]. Hemoglobin mass conc (Bld) 11.3 g/dL Low 12.0-16.0 [facility] Comment on above: Performed By: #### 2 4317-0 ####[facility], [address] [place], [place]. MCH 24.8 Picograms Low 27.0-34.0 [facility] Comment on above: Performed By: #### 2 4317-0 ####[facility], [address] [place], [place]. MCHC mass conc (RBC) 32.6 g/dL Normal 32.0-36.0 [facility] Comment on above: Performed By: #### 2 4317-0 ####[facility], [address] [place], [place]. MCV 76.1 fL Low 80.0-97.0 [facility] Comment on above: Performed By: #### 2 4317-0 ####[facility], [address] [place], [place]. Platelet mean volume Entitic volume (Bld) 8.9 FL Normal 6.2-12.1 [facility] Comment on above: Performed By: #### 2 4317-0 ####[facility], [address] [place], [place]. Platelets 251 thou/mcL Normal 142-424 [facility] Comment on above: Performed By: #### 2 4317-0 ####[facility], [address] [place], [place]. WBC (Leukocytes) 6.4 thou/mcL Normal 4.6-10.2 [facility] Comment on above: Performed By: #### 2 4317-0 ####[facility], [facility] [place], [place]. CT Abd and Pelvis w Contrast [...] emergency department following dictation on 11/21/2017 3:41 AM.[place] thanks you for the opportunity to care for your patient. Workstation ID: [id number] - [id number] FINAL REPORT Dictated By: Pérez Queen MD 11/21/2017 03:38Assigned Physician: Pérez Queen MDRevieweyon and Electronically Signed By: Pérez Queen MD 11/21/2017 03:42Transcribed by: HELEN 11/21/2017 03:38Technologist: [facility] Normal [facility] Culture Urine + Susceptibili tyon 11-21-2017 Urine culture, bacteria [facility] MicrobiologyPROCEDURE: Culture Urine + SusceptibilitySOURCE: Urine BODY SITE:COLLECTED DATE/TIME: 11/21/2017 01:41 EDT RECEIVED DATE/TIME: 11/21/2017 01:41 EDTSTART DATE/TIME: 11/21/2017 01:41 EDT FREE TEXT SOURCE: URINEINTERFACED REPORTSFinal Report []Verified Date/Time/Personnel: 11/22/2017 12:17 EDT CONTRIBUTOR_SYSTEM, CO_PNORGANISMS USUALLY ASSOCIATED WITH VAGINAL,URETHRAL,AND/OR SKIN CONTAMINATION PRESENT. Normal [facility] Comment on above: Performed By: #### 5 8077-9, 21921-4 ####[facility], [address] [place], [place].#### 630-4 ####[facility] [address] [place] [place], [place] Depart Summaryon 11-21-2017 Depart Summary EMERGENCY DEPARTMENT DISCHARGE SUMMARYPATIENT NAME:ELOY BOSTON MRN: (COL)-[id number]: 22 Years SEX: Female PHONE:[phone]: 11/20/2017 10:57 PM : 1995 ATTENDING PHYSICIAN:Ernestine Mckeon MD PCP: Physician, [place] PCP CHIEF COMPLAINT: abdominal pain Allergies Compazine (Anger)Problems Active No Chronic Problems DISCHARGE DIAGNOSIS: DISCHARGE INSTRUCTIONS: Work Release (CO-S) (CUSTOM); Abdominal Pain, Adult ED PHYSICIAN DOCUMENTATION: History of Present Antwbbq90-fbni-qrf female with no significant medical history presents [...] 00:34)?Respiration:??18 ?(11/21 00:34)?BP:??108/70 ?(11/21 00:34)?Pulse Ox:??99 ?(11/21 00:34)?Oxygen Delivery:??Room air [...] Result(s): Date Order Results 11/20/2017 23:06 Specific [place] Urine POCT N 1.030 11/20/2017 23:06 pH Urine POCT N 5 11/20/2017 23:06 Urobilinogen Urine POCT N 0 mg/dL 11/21/2017 01:41 Appearance Urine A TURBID 11/21/2017 01:41 Specific [place] Urine H 1.032 11/21/2017 01:41 Blood Urine [...] emergency department following dictation on 11/21/2017 3:41 AM.[place] thanks you for the opportunity to care [...] any generalized worsening of your condition. Normal [facility] [place] [address] Emergency Department Discharge Instructions ELOY BOSTON , [...] los [facility] Name ELOY BOSTON [facility]# [id number] PLEASE READ THE FOLLOWING REGARDING YOUR MEDICATIONS [...] doses are changed, or new medications (including rilw-ypm-gbdrkig products) are added. If you have any [...] TAKE UNTIL YOU TALK TO YOUR DOCTORNone [place] [address] Emergency Department Discharge Instructions Name: TEJ ELOY Smith Current Date: 11/21/2017 03:50:01 : 1995 12:00 PM Primary Physician: Physician, No PCP We would like to thank you for choosing [facility] for your emergency medical needs. We [...] health of those around you. Call the [place] [employer] at 8-878-UZAO-USA or the [place] [employer] at 1-486-RBQ-5824 for more information.High blood pressure: Your screening blood pressure today was 108 mm Hg / . Hypertension (high blood pressure) is blood pressure over 120/80. People with hypertension should contact their primary care provider within 30 days to follow up. Check your patient portal for additional blood pressure information.Immunizations:I mmunization is a way to protect against deadly infections. Discuss this with your child's director of casework services, or Public Health Department. Your family practice doctor can determine if you need pneumonia or flu vaccine. The [facility] can be reached at .Domestic Violence:If you [...] suicide hotline, anytime day or night, at 6-585-236-XMFM. Pharmacy Information:Below is a list of 24 hour pharmacies that we are aware of. We suggest that you call the specific pharmacy for their hours before traveling to a location. Hours may vary on holidays. [facility] [place] [address] [place] [address] [phone] [place] [address] [phone] [place] [address] [phone] [place] [address] [phone] [place] [address] [phone] [place] [address] [phone] [place] [address] [phone] Take all medications as directed. If you need prescription assistance, contact the following agencies:?? Partnership for Prescription Assistance at or www.pparx.org?? [facility] Best Rx at or www.LookUPbestrx.org?? www.PlatterRClickEquations.Ka[employer] Platform is a site with many valuable coupons [...] alleviate any discomfort you are experiencing:???Only take begj-iym-rthnckv or prescription medicines as directed by your [...] Document Reviewed: 03/15/2014[employer] Patient Education ?2016 [employer].<><><><><><><><><><><>< ><><><><><><><><><><><>< ><> Patient Visit Summary Signature TEJ ELOY Smith has been given the following list of patient education materials, prescriptions and follow-up instructions: DOMENIC WhittenELOY MARLEY, have received the above patient education materials/instructions and have verbalized understanding: Date Time Patient Signature Date Time Provider Signature Normal [facility] ED Physician Noteson 018 ED Physician Notes Chief Complaint abdo pavel painED Assigned Provider/Time Time Seen: Evy Mckeon MDjessica B / 11/21/2017 00:48History of Present Illness 22-year-old [...] FINAL DIAGNOSIS: [Abdominal Pain ] SCRIBE ATTESTATION: Fish, Moriah Almanza, am serving as a scribe to document services personally performed by Dr. Mckeon based on the patient's responses to questions from the provider and the provider's statement to me. This chart accurately reflects the work and decisions made by me.Problem List/Past Medical History Ongoing No chronic problems Historical No qualifying dataProcedure/Surgical History [place] tooth.Medications Home No active home medications ED [...] department following dictation on 11/21/2017 3:41 AM. [place] thanks you for the opportunity to [...] MD November 21, 2017 00:59 Completed Normal [facility] ED Physician Notes PDF Normal [facility] GFRaaon 11-21-2017 eGFR (black) mL/min/{1.73_m2} Normal [facility] Comment on above: Result Comment: The MDRD equation has not been validated for those over 70 years, women, patients with serious co-morbid conditions, or with extremes of bodysize, muscle mass of nutritional status. Performed By: #### 6 9405-9, 09526-8d2, 3040-3, 51733-8, 61562-3 ####[facility], [facility] [place], [place]. GFRbbon 11-21-2017 eGFR (non-black) mL/min/{1.73_m2} Normal [facility] Comment on above: Performed By: #### 6 9405-9, 72001-9s9, 3040-3, 20981-3, 60216- 3 ####[facility], [address] [place] [address]. Hepatic Function Panelon Alanine aminotransferase (ALT) 15 Units/L Normal 14-63 [facility] Comment on above: Performed By: #### 6 9405-9, 02031-6e7, 3040-3, 34631-3, 58117- 3 ####[facility], [address] [place], [place]. Albumin 4.2 g/dL Normal 3.5-4.8 [facility] Comment on above: Performed By: #### 6 9405-9, 92715-9r6, 3040-3, 97167-3, 83080- 3 ####[facility], [address] [place], [place]. Alkaline phosphatase (ALP) 36 Units/L Normal 32-91 [facility] Comment on above: Performed By: #### 6 9405-9, 19315-2u1, 3040-3, 33727-5, 63677- 3 ####[facility], [address] [place], [place]. Aspartate aminotransferase (AST) 19 Units/L Normal 15-41 [facility] Comment on above: Performed By: #### 6 9405-9, 29868-8v0, 3040-3, 04619-2, 08489- 3 ####[facility], [address] [place], [place]. Bilirubin (direct) 0.1 mg/dL Normal 0.1-0.5 [facility] Comment on above: Performed By: #### 6 9405-9, 76466-1h0, 3040-3, 09961-3, 65903- 3 ####[facility], [address] [place], [place]. Bilirubin (total) 0.6 mg/dL Normal 0.3-1.2 [facility] Comment on above: Performed By: #### 6 9405-9, 49301-0h8, 3040-3, 21166-7, 42298- 3 ####[facility], [address] [place], [place]. Bilirubin.indirect mass conc 0.5 mg/dL Normal 0.0-1.0 [facility] Comment on above: Performed By: #### 6 9405-9, 59077-7y7, 3040-3, 50670-4, 03840- 3 ####[facility], [address], [place]. Protein 6.9 g/dL Normal 6.1-7.9 [facility] Comment on above: Performed By: #### 6 9405-9, 54693-3w3, 3040-3, 35501-9, 93825- 3 ####[facility], [address], [place]. Lipaseon 11-21-2017 Lipase 21 Units/L Low 22-51 [facility] Comment on above: Performed By: #### 6 9405-9, 22962-4c2, 3040-3, 24871-7, 17730- 3 ####[facility], [address] [place], [place]. Urinalysis Microscopicon Urine, amorphous crystals presence in sediment FEW Abnormal NONE/HPF [facility] Comment on above: Performed By: #### 5 8077-9, 42924-5 ####[facility], [address] [place] [address].#### 630-4 ####[place] [address] [place], [place] Urine, bacteria in sediment FEW Abnormal NONE/HPF [facility] Comment on above: Performed By: #### 5 8077-9, 98155-3 ####[facility], [address] [place] [address].#### 630-4 ####[place] [address] [place], [place] Urine, erythrocytes in sediment by area 6 /[HPF] High 0-5 [facility] Comment on above: Performed By: #### 5 8077-9, 53451-5 ####[facility], [address] [place], [place] [address]#### 630-4 ####[place] [id number] [place] Urine, mucus presence in sediment MANY Abnormal NONE/LPF [facility] Comment on above: Performed By: #### 5 8077-9, 47467-2 ####[facility], [address] [place], [place] [address], [place]#### 630-4 ####[place] [id number] [place] Urine, squamous cells in sediment MANY Abnormal FEW/LPF [facility] Comment on above: Performed By: #### 5 8077-9, 63968-6 ####[facility], [address] [facility] [place].#### 630-4 ####[place] [address] [place], [place] WBC Urine 6 /hpf High 0-5 [facility] Comment on above: Performed By: #### 5 8077-9, 12945-2 ####[facility], [address], [place]#### 630-4 ####[place] [address] [place] Urinalysis with Microscopic Automatic with Reflexon 11-21-2017 Bilirubin Test strip mass conc (U) Negative Normal NEGATIVE [facility] Comment on above: Performed By: #### 5 8077-9, 59184-1 ####[facility], [address] [place], [place] [address], [place].#### 630-4 ####[place] [address] [place] Glucose Test strip mass conc (U) NORMAL Normal NORMAL [facility] Comment on above: Performed By: #### 5 8077-9, 63437-4 ####[facility], [address] [place], [place] [address].#### 630-4 ####[place] [address] [place] Ketones Test strip mass conc (U) 80MG/DL Abnormal NEGATIVE [facility] Comment on above: Performed By: #### 5 8077-9, 91676-6 ####[facility], [address] [facility] [place]#### 630-4 ####[place] [address] [place] Nitrite Test strip mass conc (U) Negative Normal NEGATIVE [facility] Comment on above: Performed By: #### 5 8077-9, 84158-7 ####[facility], [address] [place], [place].#### 630-4 ####[place] [address] [place] Urine, appearance TURBID Abnormal CLEAR [facility] Comment on above: Performed By: #### 5 8077-9, 04907-8 ####[facility], [address], [place].#### 630-4 ####[place] [address] [place] Urine, color TELLO Normal YELLOW [facility] Comment on above: Performed By: #### 5 8077-9, 05064-7 ####[facility], [facility] [address], [place].#### 630-4 ####[address] Urine, hemoglobin presence 10/UL Abnormal NEGATIVE [facility] Comment on above: Performed By: #### 5 8077-9, 34606-1 ####[facility], [facility] [address], [place].#### 630-4 ####[address] Urine, leukocyte esterase presence 25/UL Abnormal NEGATIVE [facility] Comment on above: Performed By: #### 5 8077-9, 15586-9 ####[facility], [address], [place].#### 630-4 ####[place] [address] [place] Urine, pH 5.0 [pH] Normal 4.5-8.0 [facility] Comment on above: Performed By: #### 5 8077-9, 21891-8 ####[facility], [address], [place].#### 630-4 ####[place] [address] [place] Urine, protein 100 mg/dL Abnormal NEGATIVE [facility] Comment on above: Performed By: #### 5 8077-9, 64213-1 ####[facility], [address] [place] [address].#### 630-4 ####[facility] [address] [place], [place] Urine, specific gravity 1.032 High 1.002-1.030 [facility] Comment on above: Performed By: #### 5 8077-9, 65731-7 ####[facility], [address] [place], [place].#### 630-4 ####[facility] [address] [place] Urobilinogen Test strip mass conc (U) NORMAL Normal NORMAL [facility] Comment on above: Performed By: #### 5 8077-9, 33228-8 ####[facility], [address] [place] [address].#### 630-4 ####[facility] [address] [place] Depart Summaryon 10-10-2017 Depart Summary EMERGENCY DEPARTMENT DISCHARGE SUMMARYPATIENT NAME:ELOY BOSTON MRN: [id number]: 22 Years SEX: Female PHONE:[phone]: 10/10/2017 1:18 PM : 1995 ATTENDING PHYSICIAN:Yaneth Radford MD PCP: Physician, No PCP CHIEF COMPLAINT: Fever, Cough/ST, Congestion Allergies Compazine (Anger)Problems Active No Chronic Problems DISCHARGE DIAGNOSIS: DISCHARGE INSTRUCTIONS: AA-Ziptheodora's work release. (Z00268); Upper Respiratory Infection, Adult; Acute Bronchitis; Pharyngitis; Strep Throat; Sinusitis, Adult ED PHYSICIAN DOCUMENTATION: History of Present Illness I have introduced myself as the PA and informed the patient of the supervising/ collaborating physician who is available upon request. I have discussed the case with the ED physician who participated in the decisions regarding any therapeutic interventions. Physician: Dr. RadfordAircya86-rnim-nlt white female with history of heart murmur [...] congestion and mild cough. She used numerous cicl-buy-gufkdpq medications and thought that she was getting [...] identified. Immediate final results were provided per protocol.[place] thanks you for the opportunity to care for your patient. Workstation ID: [id number] - [id number] FOLLOW UP:FOLLOW-UP APPOINTMENTS: Provider: Specialty: Address: Date: [place] [id number] [facility] [address] (2) Follow-up as needed Comment: This is [...] be significantly worsening instead of improving. Normal [facility] ED Pat Eduon 10-10-2017 ED Pat Edu [place] [address] Emergency Department Discharge Instructions ELOY BOSTON , Please provide this information to your Primary Care/Specialist Name : ELOY BOSTON Current Date : 10/10/2017 14:43:31DOB : 1995 12:00 PM Primary Care Physician: Physician, No PCP Diagnosis : Follow-Up Instructions:ELOY BOSTON has been given these follow-up instructions: FOLLOW-UP APPOINTMENTS: Provider: Specialty: Address: Date: [facility] [address] [facility] [address] (4) Follow-up as needed Comment: This is [...] and Patient Education(s) : Keiry's work release. ([id number]); Upper Respiratory Infection, Adult; Acute Bronchitis; Pharyngitis; Strep Throat; Sinusitis, Adult EMERGENCY SERVICES MEDICATION LISTLista de Medicaciones de los Servicios de Emergencia Name ELOY BOSTON MRN ([facility])-[id number] PLEASE READ THE FOLLOWING REGARDING YOUR MEDICATIONS [...] doses are changed, or new medications (including rflu-rab-swtqkhw products) are added. If you have any [...] TAKE UNTIL YOU TALK TO YOUR DOCTORNone [place] [address] Emergency Department Discharge Instructions Name: ELOY BOSTON Luis Current Date: 10/10/2017 14:43:31 : 1995 12:00 PM Primary Physician: Physician, [place] PCP We would like to thank you for choosing [facility] for your emergency medical needs. We [...] health of those around you. Call the [place] [employer] at 2-704-MCDV-USA or the [place] [employer] at 6-082-ZMX-8727 for more information.High blood pressure: Your screening blood pressure today was 115 mm Hg / . Hypertension (high blood pressure) is blood pressure over 120/80. People with hypertension should contact their primary care provider within 30 days to follow up. Check your patient portal for additional blood pressure information.Immunizations:I mmunization is a way to protect against deadly infections. Discuss this with your child's director of casework services, or Public Health Department. Your family practice doctor can determine if you need pneumonia or flu vaccine. The [facility] Department can be reached at .Domestic [...] suicide hotline, anytime day or night, at 3-005-513-UUMY. Pharmacy Information:Below is a list of 24 hour pharmacies that we are aware of. We suggest that you call the specific pharmacy for their hours before traveling to a location. Hours may vary on holidays. [facility] [place] [address] [phone] [address] [phone] [address] [phone] [address] [phone] [address] [phone] [address] [phone] [place] [address] [phone] Take all medications as directed. If you need prescription assistance, contact the following agencies:?? Partnership for Prescription Assistance at or www.pparx.org?? [facility] Best Rx at or www.LookUPbestrx.org?? www.PlatterRx.com is a site with many valuable coupons Patient Education Materials ELOY BOSTON has been given the following patient education materials: [facility] [address] [place] [address]Syacy: [phone] Release FormThis notice verifies that your employee ELOY BOSTON Luis was seen in this facility on [...] Document Reviewed: 07/20/2012Prieto Interactive Patient Education ?2016 [employer].ENTPharyngitisPharyngit is is redness, pain, and swelling [...] urine clear or pale yellow. ?Only take kbys-wfn-xwvcrnt or prescription medicines as directed by your [...] Released: 07/06/2006 Document Revised: 04/26/2014 Document Reviewed: 03/13/2014Xenaevcarli Interactive Patient Education ?2016 [employer].Strep ThroatStrep throat is an infection of the [...] Document Reviewed: 10/29/2015Prieto Interactive Patient Education ?2016 [employer].Emergency MedicineUpper Respiratory Infection, AdultMost upper respiratory infections [...] Document Reviewed: 10/11/2014Prieto Interactive Patient Education ?2016 [employer]Acute BronchitisBronchitis is inflammation of the airways [...] Document Reviewed: 12/27/2013Prieto Interactive Patient Education ?2016 [employer].<><><><><><><><><><><>< ><><><><><><><><><><><><><> Patient Visit Summary Signature ELOY BOSTON has been given the following list of patient education materials, prescriptions and follow-up instructions: ITEJ MORGAN A, have received the above patient education materials/instructions and have verbalized understanding: Date Time Patient Signature Date Time Provider Signature Normal [facility] ED Physician Noteson 018 ED Physician Notes Patient: NORSI BOSTON BEULAH Luis MRN: ([id number] Age: 22 years Sex: Female : 1995 Associated Diagnoses: None Author: Gabriel Hutchinson History of Present Illness I have introduced myself as the PA and informed the patient of the supervising/ collaborating physician who is available upon request. I have discussed the case with the ED physician who participated in the decisions regarding any therapeutic interventions. Physician: Dr. RadfordFubgvk32-ngdv-xgm white female with history of heart murmur [...] congestion and mild cough. She used numerous otbe-jgz-ldmditq medications and thought that she was getting [...] Hg NML Diastolic BP 74 mm Hg NM NIBP Method-CC Cuff 10/10/2017 13:23 EDT Pain [...] Upper Respiratory Infection, Adult, AA-Zippy's work release. (A91100). Follow up with: ; [facility] Within Follow-up as needed This is [...] Chief Complaint-Triage Fever, Cough/ST, Congestion . Normal [facility] ED Physician Notes PDF Normal [facility] XR Chest 2 Viewson 8 XR Chest 2 views STUDY: Chest two vie ws dated 10/10/2017 1:59 PM.COMPARISON: None.HISTORY: Cough. Fever. 3 days of symptoms. Back pain. Smoking history.FINDINGS: The heart and mediastinum are not enlarged. Vasculature is not increased. No acute consolidation, effusion or pneumothorax is identified.IMPRESSION: No acute cardiopulmonary disease identified. Immediate final results were provided per protocol.[place] thanks you for the opportunity to care for your patient. Workstation ID: [id number] - [id number] FINAL REPORT Dictated By: Marcos Dueñas MD 10/10/2017 14:01Assigned Physician: Marcos Dueñas MDReviewed and Electronically Signed By: Marcos Dueñas MD 10/10/2017 14:01Transcribed by: [facility] 10/10/2017 14:01Technologist: TRINI Schmitz [facility] BMPon 05-07-2017 Anion gap 3 molar conc 14 mmol/L Invalid Interpretation Code 10 - 20 mmol/L [facility] Calcium mass conc 9.0 mg/dL Invalid Interpretation Code 8.4 - 10.2 mg/dL [facility] Chloride molar conc 102 mmol/L Invalid Interpretation Code 98 - 108 mmol/L [facility] Creatinine mass conc 0.52 mg/dL Invalid Interpretation Code 0.4 - 1.1 mg/dL [facility] GFR/1.73 sq M predicted among non-blacks MDRD vol rate/area (S/P/Bld) The eGFR should be used for monitoring renal function only and not for medication dosing. Invalid Interpretation Code [facility] GFR/1.73 sq M.predicted CKD-EPI vol rate/area (S/P/Bld) 137 mL/min/1.73 m2 Invalid Interpretation Code >=60 [facility] Glucose mass conc 88 mg/dL Invalid Interpretation Code 65 - 99 mg/dL [facility] HCO3 molar conc 27 mmol/L Invalid Interpretation Code 21 - 32 mmol/L [facility] Potassium molar conc 3.7 mmol/L Invalid Interpretation Code 3.5 - 5.1 mmol/L [facility] Sodium molar conc 139 mmol/L Invalid Interpretation Code 135 - 145 mmol/L [facility] Urea nitrogen mass conc 13 mg/dL Invalid Interpretation Code 8 - 25 mg/dL [facility] Urea nitrogen/Creatinine mass ratio 25.0 mg/mg High 10.0 - 20.0 [facility] CBC Auto Differentialon 04-19 Basophils Auto #/vol (Bld) 0.02 K/mcL Invalid Interpretation Code 0.00 - 0.30 [facility] Basophils/100 WBC Auto (Bld) 0.3 % Invalid Interpretation Code [facility] Eosinophils Auto #/vol (Bld) 0.06 K/mcL Invalid Interpretation Code 0.00 - 0.50 [facility] Eosinophils/100 WBC Auto (Bld) 0.8 % Invalid Interpretation Code [facility] Erythrocyte distribution width Auto Entitic volume (RBC) 18.4 % High 11.6 - 14.8 % [facility] Hematocrit Auto Volume Fraction (Bld) 36.9 % Invalid Interpretation Code 36 - 46 % [facility] Hemoglobin mass conc (Bld) 11.4 g/dL Low 12 - 16 g/dL [facility] Immature granulocytes #/vol (Bld) 0.02 K/mcL Invalid Interpretation Code 0.00 - 0.30 [facility] Immature granulocytes/100 WBC (Bld) 0.30 % Invalid Interpretation Code [facility] Comment on above: The IG parameter is the percentage of metamyelocytes, myelocytes, and promyelocytes. Lymphocytes Auto #/vol (Bld) 2.18 K/mcL Invalid Interpretation Code 0.90 - 4.00 [facility] Lymphocytes/100 WBC Auto (Bld) 28.3 % Invalid Interpretation Code [facility] MCH Auto Entitic mass (RBC) 24.6 pg Low 26 - 34 pg [facility] MCHC Auto mass conc (RBC) 30.9 g/dL Low 31 - 37 g/dL [facility] MCV Auto Entitic volume (RBC) 79.7 fL Low 80 - 100 fL [facility] Monocytes Auto #/vol (Bld) 0.56 K/mcL Invalid Interpretation Code 0.30 - 0.90 [facility] Monocytes/100 WBC Auto (Bld) 7.3 % Invalid Interpretation Code [facility] Neutrophils Auto #/vol (Bld) 4.85 K/mcL Invalid Interpretation Code 1.70 - 7.00 [facility] Neutrophils/100 WBC Auto (Bld) 63.0 % Invalid Interpretation Code [facility] Nucleated RBC #/vol (Bld) 0.00 K/mcL Invalid Interpretation Code 0.00 - 0.00 [facility] Nucleated RBC/100 WBC Ratio (Bld) 0.0 % Invalid Interpretation Code [facility] Platelet mean volume Auto Entitic volume (Bld) 11.3 fL Invalid Interpretation Code 9 - 15.5 fL [facility] Platelets Auto #/vol (Bld) 277 K/mcL Invalid Interpretation Code 150 - 400 [facility] RBC Auto #/vol (Bld) 4.63 M/mcL Invalid Interpretation Code 4.00 - 5.20 [facility] WBC Auto #/vol (Bld) 7.69 K/mcL Invalid Interpretation Code 4.50 - 11.00 [facility] CBC w/ Diffon 05-07-2017 CBC w/ Diff The following orders were created for panel order CBC w/ Diff. Procedure Abnormality Status --------- ------ CBC Auto Differential[[id number]] Abnormal Final result Please view results for these tests on the individual orders. Invalid Interpretation Code [place] Work Phone: Gold Topon 05-07-2017 Extra Tube Hold for add-ons. Invalid Interpretation Code [facility] Comment on above: Auto resulted. [place] Drawon 05-07-2017 Niles Draw The following orders were created for panel order [place] Draw. Procedure Abnormality Status --------- ------ Gold Top[[id number]] Final result Light Blue Top[[id number]] Final result [place] Top[[id number]] Final result [place] Top[[id number]] Final result Please view results for these tests on the individual orders. Invalid Interpretation Code [place] Work Phone: Urinalysison 05-07-2017 Bacteria Auto Ql (U) None Seen Invalid Interpretation Code None Seen /hpf [facility] Bilirubin Ql (U) Negative Invalid Interpretation Code Negative [facility] Clarity Refractometry automated Nom (U) Clear Invalid Interpretation Code Clear [facility] Color Auto Nom (U) Yellow Invalid Interpretation Code Colorless, Yellow [facility] Epithelial cells.squamous Auto #/area (Urine sed) <1 Invalid Interpretation Code 0 - 4 /hpf [facility] Glucose Automated test strip mass conc (U) Negative Invalid Interpretation Code Negative mg/dL [facility] Hemoglobin Automated test strip Ql (U) Negative Invalid Interpretation Code Negative [facility] Interpretation and review of laboratory results Abnormal Invalid Interpretation Code [facility] Ketones mass conc (U) Negative Invalid Interpretation Code Negative mg/dL [facility] Leukocyte esterase Automated test strip Ql (U) Negative Invalid Interpretation Code Negative [facility] Mucus Auto #/area (Urine sed) Few Abnormal None Seen, Rare /lpf [facility] Nitrite Automated test strip Ql (U) Negative Invalid Interpretation Code Negative [facility] pH Test strip (U) 6.0 [pH] Invalid Interpretation Code 5.0 - 7.0 [facility] Protein mass conc (U) 30 Abnormal Negative mg/dL [facility] Comment on above: False positive resul ts may occur in urines with large amounts of hemoglobin, pH greater than 8.0, contrast medium, or disinfectants including ammonium compounds. Specific gravity Automated test strip Relative Density (U) 1.021 1 Invalid Interpretation Code 1.005 - 1.025 [facility] Urobilinogen Test strip Qn (U) <2.0 Invalid Interpretation Code <2.0 mg/dL [facility] WBC Auto #/area (Urine sed) 1 /hpf Invalid Interpretation Code 0 - 5 [facility] Urinalysis Microscopic examinat ion is performed on all urinalysis samples and only positive findings are reported. The test for blood on the chemical analytic portion of urinalysis may also be positive due to hemoglobinuria and myoglobinuria and if red blood cells are present they are quantified by microscopic examination. Invalid Interpretation Code [facility] Urine Pregnancyon 05-07-2017 HCG ( test) Ql (U) Negative Invalid Interpretation Code Negative [facility] Interpretation and review of laboratory results Normal Invalid Interpretation Code [facility] Vital Signs Date Time Vital Sign Value Performing Clinician Facility 11-10-2024 15:43-0400 Body height 161.9 cm Greta Brand DO Work Phone: [facility] 11-10-2024 15:43-0400 Body mass index (BMI) [Ratio] 23.22 kg/m2 Greta Pausommer DO Work Phone: [facility] 11-10-2024 15:43-0400 Body temperature 99 [degF] Greta Puasommer DO Work Phone: [facility] 11-10-2024 15:43-0400 Body weight 60.87 kg Greta Pauhas DO Work Phone: [facility] 11-10-2024 15:43-0400 Diastolic blood pressure 62 mm[Hg] Greta Brand DO Work Phone: [facility] 11-10-2024 15:43-0400 Heart rate 83 /min Greta Brand DO Work Phone: [facility] 11-10-2024 15:43-0400 Respiratory rate 16 /min Greta Brand DO Work Phone: [facility] 11-10-2024 15:43-0400 SaO2% (BldA) [Mass fraction] 99 % Greta Brand DO Work Phone: [facility] 11-10-2024 15:43-0400 Systolic blood pressure 90 mm[Hg] Greta Brand DO Work Phone: [facility] 08-01-2024 10:32-0500 Body mass index (BMI) [Ratio] 25.3 kg/m2 Timothy Christelle DO Work Phone: [facility] 08-01-2024 10:32-0500 Body weight 66.86 kg Timothy Christelle DO Work Phone: [facility] 08-01-2024 10:32-0500 Diastolic blood pressure 50 mm[Hg] Timothy Christelle DO Work Phone: [facility] 08-01-2024 10:32-0500 Systolic blood pressure 98 mm[Hg] Timothy Christelle DO Work Phone: [facility] 07-18-2024 15:04-0500 Body height 161.9 cm Greta Brand DO Work Phone: [facility] 07-18-2024 15:04-0500 Body mass index (BMI) [Ratio] 25.23 kg/m2 Greta Brand DO Work Phone: [facility] 07-18-2024 15:04-0500 Body temperature 97.7 [degF] Greta Brand DO Work Phone: [facility] 07-18-2024 15:04-0500 Body weight 66.13 kg Greta Nuñezs DO Work Phone: [facility] 07-18-2024 15:04-0500 Diastolic blood pressure 56 mm[Hg] Greta Nuñezs DO Work Phone: [facility] 07-18-2024 15:04-0500 Heart rate 74 /min Greta Nuñezs DO Work Phone: [facility] 07-18-2024 15:04-0500 Respiratory rate 18 /min Greta Brand DO Work Phone: [facility] 07-18-2024 15:04-0500 SaO2% (BldA) [Mass fraction] 98 % Greta Brand DO Work Phone: [facility] 07-18-2024 15:04-0500 Systolic blood pressure 98 mm[Hg] Greta Brand DO Work Phone: [facility] 12-27-2017 11:36-0400 BMI (Body Mass Index) 23.64 kg/m2 [facility] 12-27-2017 11:36-0400 Body Temperature 98.29 [degF] [facility] 12-27-2017 11:36-0400 BP Diastolic 83 mm[Hg] [facility] 12-27-2017 11:36-0400 BP Systolic 121 mm[Hg] [facility] 12-27-2017 11:36-0400 Height 162.6 cm [facility] 12-27-2017 11:36-0400 Pulse (Heart Rate) 84 /min [facility] 12-27-2017 11:36-0400 Pulse Oximetry 97 % [facility] 12-27-2017 11:36-0400 Respiratory Rate 12 /min [facility] 12-27-2017 11:36-0400 Weight 62.46 kg [facility] 05-08-2017 13:44-0400 BP Diastolic 71 mm[Hg] Solis French [place] Work Phone: 05-08-2017 13:44-0400 BP Systolic 118 mm[Hg] [facility] 05-08-2017 13:44-0400 Pulse (Heart Rate) 68 /min [facility] Work [facility]: 05-08-2017 13:44-0400 Pulse Oximetry 99 % [facility] Work [facility]: 05-08-2017 13:44-0400 Respiratory Rate 18 /min [facility] Work Phone: 05-08-2017 10:49-0400 BMI (Body Mass Index) 23.17 kg/m2 [facility] Work Phone: 05-08-2017 10:49-0400 Body Temperature 98.29 [degF] [facility] Work Phone: 05-08-2017 10:49-0400 Height 162.6 cm [facility] Work Phone: 05-08-2017 10:49-0400 Weight 61.24 kg [facility]is [facility] Work Phone: 05-07-2017 19:00-0400 BP Diastolic 62 mm[Hg] Henri Pulliam [employer] Work Phone: 05-07-2017 19:00-0400 BP Systolic 108 mm[Hg] Henri Pulliam [employer] Work Phone: 05-07-2017 19:00-0400 Pulse (Heart Rate) 63 /min Henri Pulliam [employer] Work Phone: 05-07-2017 19:00-0400 Respiratory Rate 16 /min Henri Pulliam [employer] Work Phone: 05-07-2017 16:14-0400 BMI (Body Mass Index) 22.86 kg/m2 Henri Pulliam [employer] Work Phone: 05-07-2017 16:14-0400 Body Temperature 98.8 [degF] Henri Pulliam [place] Work Phone: 05-07-2017 16:140400 Height 162.6 cm Henri Pulliam [place] Work Phone: 05-07-2017 16:14-0400 Pulse Oximetry 100 % Henri Pulliam [place] Work Phone: 05-07-2017 16:14-0400 Weight 60.42 kg Henri Pulliam [place] Work Phone: Encounters Encounter Date Encounter Type Care Provider Facility Start: 01-17-2025 ambulatory [facility] Start: 12-26-2024 End: 12-26-2024 Bamboo flowsheet Timothy Christelle DO Work Phone: [facility] Start: 12-26-2024 End: 12-29-2024 Bamboo flowsheet Timothy Christelle DO Work Phone: [facility] Start: 12-26-2024 End: 12-29-2024 Clinisync Result Encounter Timothy Christelle DO Work Phone: [facility] Unsolicited Start: 12-26-2024 End: 12-26-2024 Patient encounter procedure Timothy Christelle DO Work Phone: [facility] Work Phone: Start: 12-26-2024 End: 12-26-2024 Periodic preventive med est patient 18-39 yrs Timothy Christelle DO Work Phone: [facility] Comment on above: Well woman exam with routine gynecological exam; depression (CMS/HCC); Anxiety, generalized (CMS/HCC) Start: 12-14-2024 End: 12-14-2024 Office outpatient new 30 minutes 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 [employer] Work Phone: [facility] Comment on above: Acute conjunctivitis of right eye, unspecified acute conjunctivitis type (Primary Dx); Seasonal allergies Start: 12-14-2024 ambulatory [facility] Start: 11-10-2024 End: 11-10-2024 ambulatory [facility] Start: 11-10-2024 End: 11-10-2024 Office outpatient visit 25 minutes Greta Brand DO Work Phone: [facility] Comment on above: Wilfred thyroiditi s (Primary Dx); Bilateral sacroiliitis; Attention deficit hyperactivity disorder (ADHD), unspecified ADHD type; Persistent depressive disorder Start: 11-10-2024 End: 11-10-2024 ambulatory [facility] Start: 09-27-2024 End: 09-27-2024 [facility] Start: 08-24-2024 End: 08-24-2024 Office outpatient visit 25 minutes Greta Brand DO Work Phone: [facility] Comment on above: Influenza A (Primary Dx) Start: 08-24-2024 End: 08-24-2024 ambulatory [facility] Start: 08-01-2024 End: 08-01-2024 [...] Anxiety, generalized (CMS/HCC) Start: 07-29-2024 End: 07-29-2024 [facility] Start: 07-18-2024 End: 07-18-2024 [facility] Start: 07-18-2024 End: 07-18-2024 ambulatory [facility] Start: 07-18-2024 End: 07-18-2024 Office outpatient new 45 minutes [facility]in [facility] DO Work Phone: [facility] Comment on above: Fibromyalgia (Primar y Dx); Lumbar spine pain; Cervical spine pain; Iron deficiency anemia secondary to inadequate dietary iron intake; Attention deficit hyperactivity disorder (ADHD), unspecified ADHD type; Persistent depressive disorder Start: 07-18-2024 End: 07-18-2024 ambulatory [facility] Start: 07-15-2024 End: 07-15-2024 ambulatory JERI FOREMAN [facility] Start: 07-15-2024 End: 07-15-2024 External Result Encounter Jeri GARRETT Work Phone: [facility] Unsolicited Start: 07-15-2024 End: 07-15-2024 External Result Encounter Jeri GARRETT Work Phone: [facility] Unsolicited Start: 03-14-2024 End: 03-14-2024 Phys/qhp telephone evaluation 5-10 min Timothy Bourgeois DO Work Phone: [facility] Comment on above: depressio n (CMS/HCC) Start: 08-28-2023 Clinisync Result Encounter Jeri GARRETT Work Phone: [facility] Unsolicited Start: 08-28-2023 Clinisync Result Encounter Jeri GARRETT Work Phone: [facility] Unsolicited Start: 07-09-2021 End: 07-12-2021 ambulatory DARY BLACK [facility] Start: 12-27-2017 End: 12-27-2017 Ambulatory ROXANE BEASLEY [facility] Start: 12-27-2017 End: 12-27-2017 Office/outpatient visit, est, level 3 Mari Crowell Work Phone: [place] [facility] Start: 11-21-2017 End: 11-21-2017 Emergency department patient visit No PCP Physician Facility:[facility] Start: 10-10-2017 End: 10-10-2017 Emergency department patient visit No PCP Physician Facility:[facility] Start: 05-08-2017 End: 05-08-2017 Emergency department patient visit ROXANE BEASLEY [facility] Start: 05-08-2017 End: 05-08-2017 Emergency department patient visit Solis French Work Phone: [facility] Comment on above: Trapezius muscle spa sm (Primary Dx) Start: 05-07-2017 End: 05-07-2017 Emergency department patient visit HENRI PULLIAM [facility] Start: 05-07-2017 End: 05-07-2017 Emergency department patient visit Henri Pulliam Work Phone: [facility] Comment on above: Nonintractable heada cheryle, unspecified chronicity pattern, unspecified headache type (Primary Dx) Procedures Date Procedure Procedure Detail Performing Clinician Start: 12-26-2024 IGP,APTIMA HPV,AGE GDLN Timothy Christelle DO Work Phone: Start: 11-10-2024 Adult depression scr eening assessment [...] Td Vaccines (7 - Td or Tdap) [facility] Start: 01-01-2026 End: 01-01-2026 Patient encounter procedure 01/01/2026 1:00 PM EDT Office Visit [facility] [address] [facility] [place] [address] Timothy Bourgeois, DO [address] [place] [address] [facility] Start: 11-10-2025 Adult BMI Screening Adult BMI Screen ing [facility] Start: 11-10-2025 Depression Screening Depression Scre ening [facility] Start: 11-10-2025 Tobacco Screening Tobacco Screening [facility] Start: 07-18-2025 Adult BMI Screening Adult BMI Screen ing [facility] Start: 07-18-2025 Depression Screening Depression Scre ening [facility] Start: 07-18-2025 Tobacco Screening Tobacco Screening [facility] Start: 03-20-2025 Influenza vaccination [facility] Start: 02-21-2025 Screening for malign ant neoplasm of cervix Pap Smear [facility] Start: 12-26-2024 End: 12-26-2024 Patient encounter procedure 12/26/2024 1:00 PM EDT Office Visit [facility] [address] [facility] [place] [id number] Timothy Bourgeois, DO [address] [place] [address] [facility] Start: 08-01-2024 End: 08-01-2024 Patient encounter procedure 08/01/2024 10:10 AM EST Office Visit [facility] [address] [facility] [place] [address] Timothy Bourgeois, DO [address] [place] [address] [facility] Start: 07-18-2024 End: 07-18-2025 XR Cervical spine Views [facility] Comment on above: Expected: 07/18/2024 , Expires: 07/18/2025 Start: 07-18-2024 End: 07-18-2025 XR Lumbar spine 2 or [address] [facility] Comment on above: Expected: 07/18/2024 , Expires: 07/18/2025 Start: 06-21-2024 End: 06-21-2024 Patient encounter procedure 06/21/2024 1:40 PM EST Office Visit [facility] [address] [facility] [place] [id number] Timothy Bourgeois, DO [address] [place] [address] [facility] Start: 03-20-2024 COVID-19 Vaccine ( season) COVID-19 Vaccine ( season) [facility] Start: 03-20-2024 [facility] Start: 08-31-2023 End: 08-31-2023 Patient encounter procedure 08/31/2023 4:00 PM EST Routine [facility] [address] [facility] [place] [address] Timothy Bourgeois, DO [address] [place] [address] Third trimester [facility] Comment on above: Third trimester preg dinora Start: 03-20-2023 Influenza vaccination Influenza Vacc ine (#1) [facility] Start: 03-20-2018 Influenza vaccination SEQUENTI AL INFLUENZA VACCINE (Season Ended) [place] Start: 03-20-2017 Influenza vaccination SEQUENTI AL INFLUENZA VACCINE (#1) [place] Work Phone: Start: 2014 Adult BMI Follow Up Plan Adult BMI Follow Up Plan [facility] Start: 2007 Vaccination for luciana n papillomavirus HPV VACCINES (1 of 3 - Female 3 Dose Series) [place] Work Phone: Start: 1996 Adult depression screening assessment DEPRESSION SCREENING (PHQ9) [place] Start: 1996 Screening for malign ant neoplasm of cervix PAP SMEAR [place] Work Phone: Start: 1996 SUBSTANCE ABUSE SCREENING (AUDIT-C) SUBSTANCE ABUSE SCREENING (AUDIT-C) [place] Start: 1996 Tetanus vaccination TETANUS EVERY 10 YR [place] Work Phone: End: 07-18-2025 [place] Screen w/ Reflex [place] Screen w/ Reflex Lab Routine Fibromyalgia 1 Occurrences starting 07/18/2024 until 07/18/2025 [facility] Comment on above: 1 Occurrences starti ng 07/18/2024 until 07/18/2025 End: 07-18-2025 CBC W Auto Differential panel - Blood CBC auto differential Lab Routine Iron deficiency anemia secondary to inadequate dietary iron intake 1 Occurrences starting 07/18/2024 until 07/18/2025 [employer] Work Phone: Comment on above: 1 Occurrences starti ng 07/18/2024 until 07/18/2025 End: 07-18-2025 Comprehensive metabolic 2000 panel - Serum or Plasma Comprehensive metabolic panel Lab Routine Iron deficiency anemia secondary to inadequate dietary iron intake 1 Occurrences starting 07/18/2024 until 07/18/2025 [facility] Comment on above: 1 Occurrences starti ng 07/18/2024 until 07/18/2025 Cytology Cervical or vaginal smear or scraping study Pap Smear Pathology and Cytology Routine Well woman exam with routine gynecological exam Ordered: 12/26/2024 [facility] [employer] Work Phone: Comment on above: Ordered: 12/26/2024 End: 07-18-2025 Erythrocyte sedimentation rate Erythrocyte Sedimentation Rate (ESR) Lab Routine Fibromyalgia 1 Occurrences starting 07/18/2024 until 07/18/2025 [facility] Comment on above: 1 Occurrences starti ng 07/18/2024 until 07/18/2025 End: 11-10-2025 Erythrocyte sedimentation rate Erythrocyte Sedimentation Rate (ESR) Lab Routine Bilateral sacroiliitis 1 Occurrences starting 11/10/2024 until 11/10/2025 [facility] Comment on above: 1 Occurrences starti ng 11/10/2024 until 11/10/2025 End: 11-10-2025 HLA-B27 antigen HLA-B27 antigen Lab Routine Bilateral sacroiliitis 1 Occurrences starting 11/10/2024 until 11/10/2025 [employer] Work Phone: Comment on above: 1 Occurrences starti ng 11/10/2024 until 11/10/2025 End: 07-18-2025 Iron and TIBC Iron and TIBC Lab Routine Iron deficiency anemia secondary to inadequate dietary iron intake 1 Occurrences starting 07/18/2024 until 07/18/[address] [facility] Comment on above: 1 Occurrences starti ng 07/18/2024 until 07/18/2025 Streptococcus pyogen es [Presence] in Throat by Organism specific culture Strep A Culture, Throat Routine Sore throat Ordered: 12/27/2017 [place] End: 07-18-2025 TSH with Reflex TSH with Reflex Lab Routine Fibromyalgia 1 Occurrences starting 07/18/2024 until 07/18/[address] [facility] Comment on above: 1 Occurrences starti ng 07/18/2024 until 07/18/2025 Immunizations Immunization Date Immunization Notes Care Provider Mateo [facility] 02-07-2020 tetanus toxoid, reduced diphtheria toxoid, and acellular pertussis vaccine, adsorbed Greta Nuñezs DO Work Phone: [facility] 09-01-2019 influenza virus vaccine, unspecified formulation Greta Nuñezs DO Work Phone: [facility] 08-06-2019 tetanus toxoid, reduced diphtheria toxoid, and acellular pertussis vaccine, adsorbed Greta Yuhas DO Work Phone: [facility] 05-08-2016 influenza, seasonal, injectable Henri Heraclio [place] Work Phone: 05-08-2016 influenza virus vaccine, unspecified formulation Jeri GARRETT Work Phone: [facility] NEGATED: Highlighted row has not occurred!05-01-2020 measles, mumps and rubella virus vaccine Greta Jareehas DO Work Phone: [facility] Comment on above: Deferred: - Rubella titer immune NEGATED: Highlighted row has not occurred!05-01-2020 varicella virus vaccine Greta Yinghas DO Work Phone: [facility] Comment on above: Deferred: - Varicell a titer immune Payers Date Payer Category Payer Private Health Insurance [employer] [id number] 2021 Commercial [employer]aged C are - PPO [employer] [id number] 2021 Unknown [id number] 2017 Unknown [id number] 2017 Unknown [id number] 2016 Unknown 1996 Unknown [id number] 1996 Unknown [id number]. 128 1996 Unknown [id number]. 1285 1996 Unknown [id number]. 1285 1996 Unknown [id number]. 1285 1996 Unknown [id number]. 1286 1996 Unknown [id number]. 1286 1996 Unknown [id number] [id number]. 1286 1996 Unknown [id number]. 1286 1996 Unknown [id number]. 1286 1996 Unknown [id number] [id number]. 1286 1996 Unknown [id number]. 1286 Social History Date Type Detail Facility Start: 12-27-2017 Tobacco smoking stat [facility] Current every day smoker [place] End: 07-30-2019 History of tobacco use Cigarette Smoker [place] Work Phone: Start: 12-27-2017 End: 08-09-2020 Cigarettes smoked current (pack per day) - Reported [facility] Start: 1995 [facility]igned [facility] Start: 05-07-2017 End: 07-18-2024 Tobacco smoking status NHIS Former smoker [facility] Tobacco smoking stat [facility] Tobacco smoking consumption unknown [facility] Start: 02-17-2023 [facility] Start: 1995 Sex Assigned At Female [facility] Start: 04-02-2023 Gender identity Identifies as female gender (finding) [facility] Start: 04-02-2023 Sexual orientation Bisexual (finding ) [facility] End: 07-30-2019 History of tobacco use Current smoker [facility] Start: 07-18-2024 Tobacco use and exposure Smokeless tobacco non-user [facility] Start: 07-18-2024 End: 12-14-2024 Alcoholic beverage intake Ex-drinker (finding) [facility] Start: 05-01-2020 End: 08-09-2020 Social connection and isolation panel [facility] In a typical week, h ow many times do you talk on the telephone with family, friends, or neighbors? Patient declined [facility] The thought of fred wheatley myself has occurred to me Never [facility] Start: 08-06-2019 Alcohol Comment social [facility] Start: 02-22-2015 Sex Female (finding) [facility] Clinical Notes 03-14-2024 to 12-26-2024 Stacy Roman, MEAT STRINGER - 12/26/2024 1:00 PM Jaja Myers, MANAGER [employer] - 12/14/2024 10:00 AM Gloria Brand, DO [...] Active Ambulatory Problems Diagnosis Date Noted depression (CMS/HCC) 03/14/2024 Resolved Ambulatory Problems Diagnosis Date Noted No Resolved Ambulatory Problems Past Medical History: Diagnosis Date Anemia Wilfred's disease (CMS/HCC) HISTORY PAST MEDICAL HISTORY SOCIAL HISTORY Past Medical History: Diagnosis Date Anemia Wilfred's disease (CMS/HCC) Social History Tobacco Use Smoking status: Not [...] nursing note reviewed. Exam conducted with a tour manager present. Vitals: Estimated body mass index is [...] Timothy Bourgeois DO documented in this encounter [facility] 12-14-2024 History of Present illness Narrative Video Visit via Real-time Synchronous Audiovisual Provider Location: [facility] [address] [address] Patient Location: Patient's home Video Visit Consent [...] that there are some limitations compared to fhsy-jp-cfii evaluations. The patient consented to the presence of additional virtual and/or in-person participants. We elected to proceed. The patient's call-back number if disconnected is [phone] Subjective: Patient ID: Eloy Boston is a [...] deficiency anemia Murmur PPD positive 2023 Seizures ([facility]) 2016 Past Surgical History: Procedure Laterality Date HEMORRHOIDECTOMY EXTERNAL X 2 N/A 07/02/2020 Performed by Rita Lakhani MD at [facility] AMBUL[facility] SURGERY WISDOM TOOTH EXTRACTION Current Outpatient [...] in the morning. 90 tablet 1 COMPLETE DHA 29 mg iron- 1 mg-200 [...] Angelo 12/14/24 1133 [facility] History of Present illness Narrative IM PROGRESS NOTE Patient - Eloy Boston Age - 29 y.o. - 1995 [facility] # - [id number] ASSESSMENT & PLAN 1. Wilfred thyroiditis (Primary) [...] Testing No results found. Greta Brand DO., [facility] Office: [phone] documented in this encounter [facility] 08-24-2024 History of Present illness Narrative IM PROGRESS NOTE Patient - Eloy Boston Age - 29 [facility] 1995 [id number] ASSESSMENT & PLAN Video Visit via Real-time Synchronous Audiovisual Provider Location: [facility] [address] [facility] [facility] [address] Patient Location: Patient's home Video Visit Consent [...] that there are some limitations compared to hzkj-oe-bnuv evaluations. The patient consented to the presence [...] - she had her child at the director of casework services yesterday, and he was diagnosed with influenza [...] in the morning., Disp: , Rfl: COMPLETE ANNETTE DHA 29 mg iron- 1 mg-200 mg [...] Testing No results found. Greta Brand DO., [facility] Office: [phone] documented in this encounter [facility] 08-01-2024 History of Present illness Narrative [...] Active Ambulatory Problems Diagnosis Date Noted depression (CMS/HCC) 03/14/2024 Resolved Ambulatory Problems Diagnosis Date Noted No Resolved Ambulatory Problems Past Medical History: Diagnosis Date Anemia Wilfred's disease (CMS/HCC) HISTORY PAST MEDICAL HISTORY SOCIAL HISTORY Past Medical History: Diagnosis Date Anemia Wilfred's disease (CMS/HCC) Social History Tobacco Use Smoking status: Not [...] nursing note reviewed. Exam conducted with a tour manager present. Vitals: Estimated body mass index is [...] Timothy Bourgeois DO documented in this encounter [facility] 07-18-2024 History of Present illness Narrative IM PROGRESS NOTE Patient - Eloy Boston Age - 29 y.o. - 1995 [facility] # - [id number] ASSESSMENT & PLAN 1. Fibromyalgia (Primary) -previously [...] in the morning., Disp: , Rfl: COMPLETE ANNETTE DHA 29 mg iron- 1 mg-200 mg [...] Testing No results found. Greta Brand DO., [facility] Office: [phone] documented in this encounter [facility] 03-14-2024 History of Present illness Narrative Reason for Appointment: Patient ID: Eloy Boston is a 29 y.o. female who presents for No chief complaint on file. Patient presents today via telephone call for a telehealth appointment. Patients Phone #: [phone] (mobile) Current Medications: has a current medication [...] episode of care documented in this encounter [facility]* Diagnosis Fibromyalgia- Primary Unspecified myalgia and myositis Lumbar spine pain Cervical spine pain Iron deficiency anemia secondary to inadequate dietary iron intake Attention deficit hyperactivity disorder (ADHD), unspecified ADHD type Persistent depressive disorder [facility] Diagnosis Follow-up encounter involving medication depression (CMS/HCC) Mental disorders of mother, complicating , childbirth, or the puerperium, unspecified as to episode of care Anxiety, generalized (CMS/HCC) documented in this encounter [facility]* Diagnosis Influenza A- Primary Influenza with other respiratory manifestations [facility]* Diagnosis Wilfred thyroiditis- Primary Chronic lymphocytic thyroiditis Bilateral sacroiliitis Attention deficit hyperactivity disorder (ADHD), unspecified ADHD type Persistent depressive disorder documented in this [facility]* Diagnosis Acute conjunctivitis of right eye, unspecified acute conjunctivitis type- Primary Seasonal allergies Allergic rhinitis, cause unspecified [facility] Diagnosis Well woman exam with routine gynecological exam Routine gynecological examination depression (CMS/HCC) Mental disorders of mother, complicating , childbirth, or the puerperium, unspecified as to episode of care Anxiety, generalized (CMS/HCC) documented in this encounter [facility] HealthcareInstructionsNot on filedocumented in this encounterPro[facility] SystemInstructionsNot on filedocumented in this encounterProL[facility] SystemInstructionsNot on filedocumented in this encounterProLake [facility] SystemInstructions* Attachments The following attachments cannot be sent through Care Everywhere. * Conjunctivitis (pink eye) ED discharge instructions (Spanish) [facility] * Patient Instructions - Mari Crowell CNP - 12/27/2017 12:03 PM EDT Formatting [...] 1 cup of warm water. Take an ogly-paz-zsvxnur pain medicine, such as acetaminophen (Tylenol), ibuprofen (Advil, Motrin),or naproxen (Aleve). Read and follow all instructions on the label. Be careful when taking tydq-xsl-tigssvj cold or flu medicines and Tylenol at [...] soup, may help decrease throat pain. Use zoji-sbi-nctvpci throat lozenges to soothe pain. Regular cough [...] Log into your personal health record on https://[employer] and enter U420 in the Education box to learn more about Sore Throat: Care Instructions. Current as of: November 28, 2016 Content Version: . [employer]. Care instructions adapted under license by your healthcare professional. If you have questions about a medical condition or this instruction, always ask your healthcare professional. [employer] disclaims any warranty or liability for your [...] rest if you feel tired. Take an idmb-qwt-ehozkod pain medicine if needed, such as acetaminophen (Tylenol), ibuprofen (Advil, Motrin), or naproxen (Aleve). Read and follow all instructions on the label. Be careful when taking ywsc-wve-wbdspfe cold or flu medicines and Tylenol at [...] Log into your personal health record on https://[employer] and enter L906 in the Education box to learn more about Viral Infections: Care Instructions. Current as of: June 06, 2017 Content Version: 11.6 1443-0433 [employer]. Care instructions adapted under license by your healthcare professional. If you have questions about a medical condition or this instruction, always ask your healthcare professional. [employer] disclaims any warranty or liability for your use of this information. in this encounter Assessments Diagnosis Sore throat - Primary Acute pharyngitis Viral syndrome Unspecified viral infection, in conditions classified elsewhere and of unspecified site Diagnosis Nonintractable headache, uns pecified chronicity pattern, unspecified headache type - Primary Diagnosis Trapezius muscle spasm - [facility] Summary Purpose Family History No Family History Records FoundNo Family History Records FoundNo Family History Records FoundNo Family History Records FoundNo Family History Records FoundNo Family History Records FoundNo Family History Records Found Advance Directives No Advanced Directives Records Found Date Activated Date Inactivated Comments 05/01/2020 3:10 [...] your doctor if you can take an pzeh-twm-abemzfm medicine. Be careful not to take pain [...] Log into your personal health record on [email or web address]://Rise Artt.The [employer] Experience[employer] and enter M271 in the Education box to learn more about Headache: Care Instructions. Current as of: May 02, 2016 Content Version: 11.2 8998-2543 [employer]. Care instructions adapted under license by your healthcare professional. If you have questions about a medical condition or this instruction, always ask your healthcare professional. [employer] disclaims any warranty or liability for your use of this information. in this encounter Additional Source Comments INFORMATION SOURCE (unrecogn ized section and content) DATE CREATED AUTHOR 01/05/2018 [facility] DATE CREATED AUTHOR AUTHOR'S NOE ACOSTA 01/12/2018 [facility] DATE CREATED AUTHOR AUTHOR'S ORGANIZ ATION 02/02/2018 [facility] DATE CREATED AUTHOR AUTHOR'S ORGANIZ ATION 07/12/2021 [facility] DATE CREATED AUTHOR AUTHOR'S ORGANIZ ATION 11/12/2024 [facility] DATE CREATED AUTHOR AUTHOR'S ORGANIZ ATION 12/17/2024 [facility] DATE CREATED AUTHOR AUTHOR'S ORGANIZ ATION 01/20/2025 [facility] Reason for Visit (unrecogniz ed section [...] the patient. I discussed the patient with MEAT STRINGER/PA. I agree with the MEAT STRINGER/PA treatment plan. I agree with the MEAT STRINGER/PA plan of care. I agree with the MEAT STRINGER/PA dispo as documented. The patient has been [...] Procedure Abnormality Status --------- ------ CBC Auto Differential[[id number]] Abnormal Final result Please view results for these tests on the individual orders. RAINBOW DRAW Narrative: The following orders were created for panel order Niles Draw. Procedure Abnormality Status --------- ------ Gold Top[[id number]] In process Light Blue Top[[id number]] In process Wright Top[[id number]] In process [place] Top[[id number]] In process Please view results for these [...] note may be different from the original. [facility] ED Resident Note: NAME: Eloy Boston 22 y.o. CSN: [id number] PCP: Roxane Beasley DO History: Chief Complaint: [...] PMSx: Past Surgical History: Procedure Laterality Date Aviculturist WISDOM TOOTH EXTRACTION FAM. 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 RAINBOW DRAW Narrative: The following orders were created for panel order Niles Draw. Procedure Abnormality Status --------- ------ Gold Top[[id number]] In process Light Blue Top[[id number]] In process Wright Top[[id number]] In process [place] Top[[id number]] In process Please view results for these [...] was discharged home in stable condition. Eloy Luis Boston's case was discussed with my attending [...] Given 05/07/171728) This note was generated by [employer] voice recognition software and as a result grammatical or spelling errors may occur using this program. Clinical Impression: SNOMED CT(R) 1. Nonintractable headache, unspecified chronicity pattern, unspecified headache type HEADACHE Disposition: Patient is being discharged to home New Prescriptions No medications on file Alyssa Tellez DO ED Resident Physician [facility] Emergency Department (Please note that portions of this note have been completed with a voice recognition software. Efforts were made to correct any errors, but occasionally words are mis-transcribed.) Alyssa Tellez DO Resident 05/07/17 3113 SECONDARY ASSESSMENT - Breathing regular and unlabored, [...] wall movement. Circulation: Skin warm and dry, TRAILER MECHANIC < 3 seconds, 2+ Bilateral radial [...] to the room to provide pt with DC/project administrative assistant/care instructions. 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 All imaging has been read by a Radiologist. Eleno Thao PA-C 05/08/17 1315 Pt presents to the ED c/o of severe neck pain. Pt was tx at [facility] yesterday for migraine at which time [...] pt was seen in ED at [facility] yesterday treated for migraine headache, denies headache at this timein this encounter Care Teams (unrecognized sec tion and content) Balance Bridge Assembler Relationship Specialty Start Date End Date Jeri Foreman PA [address] [place], [place] [address] [address] PCP - Medical [employer] 06/19/22 07/19/99 Balance Bridge Assembler Relationship Specialty Start Date End Date Greta Brand DO [facility] [place] [address] PCP - General Internal Medicine 07/15/24 Balance Bridge Assembler Relationship Specialty Start Date End Date Jeri Foreman PA [address] [place] [address] PCP - Medical [employer] 06/19/22 07/19/99 Balance Bridge Assembler Relationship Specialty Start Date End Date Jeri Foreman PA [address] [facility] [place] [address] PCP - [facility] 06/19/22 07/19/99 Balance Bridge Assembler Relationship Specialty Start Date End Date Josh Greta DO [facility] [address] [place] [address] PCP - General Internal Medicine 07/15/24 Balance Bridge Assembler Relationship Specialty Start Date End Date Greta Brand DO [address] [place] [address] PCP - General Internal Medicine 07/15/24 Balance Bridge Assembler Relationship Specialty Start Date End Date Josh Greta DO [place] [address] [place] [address] PCP - General Internal Medicine 07/15/24 Balance Bridge Assembler Relationship Specialty Start Date End Date Jeri Foreman PA [address] [place] [address] [place] [address] [facility] 06/19/22 07/19/99 FOR RECORDS PERTAINING TO PATIENTS WHO ARE [...] BE BASED ON THE PRIMARY CLINICAL RECORDS. [employer] provides no warranty or guarantee of the accuracy or completeness of information in this document.
--- NOTE | 2025-01-29 18:25 | XR_ITS ---
[facility] [place] [id number] Patient Name: JODI BURNHAM MRN: [id number] date: 1995 Sex: F Assigned Patient Location: ED.MAIN Current Patient Location: ED.MAIN Accession/Order Number: [id number] Exam Date: 01/30/2025 09:24 Report Date: 01/30/2025 09:25 At the request of: STEPHEN CORTES NP Procedure: XR lumbar spine 2-3V LUMBAR SPINE - 3 views: CLINICAL HISTORY: Back pain with radiation to the legs x 6 mo. No reported injury. COMPARISON: None There is no evidence of fracture. Alignment is maintained on the lateral view. The disc spaces are normal in height. There is no significant degenerative change. The sacroiliac joints are maintained and there is mild sclerosis. There are no paraspinal soft tissue abnormalities. XR/XR lumbar spine 2-3V IMPRESSION: NO ACUTE BONY FINDINGS. Impression dictated by: Heena Daly M.D. 01/30/2025 9:25 AM Dictation Location: [place] [address] Electronically authenticated by: [id number] Y Date: 01/30/2025 09:25
--- NOTE | 2025-01-29 18:31 | ED.GENADUL1 ---
HPI HPI - General Adult General Chief complaint: Back Pain/Injury Stated complaint: LOWER BACK PAIN Time Seen by Provider: 01/29/25 18:17 Source: patient Mode of arrival: walk-in Limitations: no limitations History of Present Illness HPI narrative: The patient is a 29-year-old female presents to the emergency department today for evaluation of concerns for back pain. She endorses she has had a pain to lower lumbar region of her back for the past year after having her last child. She reports this pain has been more persistent over the past 6 months. She states she has done many complementary alternative therapies including micro needling and using hot Epsom salt baths with no improvement. She mentions her primary care provider did put her on a muscle relaxer which she states she has not taken. She mention she was previously in physical therapy however has not had any in the past 6 weeks. She reports today she is now having some pain radiate down her right buttock and her leg. No saddle anesthesia or concerns with bowel/bladder function. No weakness or loss of movement to the remedies. No history of malignancy or fevers. No prior injuries or trauma to the back Related Data Home Medications ?Medication ?Instructions ?Recorded ?Confirmed PNV-iron 29 mg-folic acid 1 1 pkg PO DAILY 11/04/23 11/04/23 np-ovbrm-0-dha 200 mg oral combo pack (Complete DHA) Previous Rx's ?Medication ?Instructions ?Recorded hydrocodone 5 mg-acetaminophen 325 1 tab PO Q6H PRN pain #7 tabs 01/29/25 mg tablet methylprednisolone 4 mg tablets in 4 mg PO QID 4 doses #21 ea 01/29/25 a dose pack (Medrol (Michael)) Allergies Allergy/AdvReac Type Severity Reaction Status Date / Time latex Allergy Rash Verified 01/29/25 18:00 prochlorperazine (From Allergy psychosis Verified 01/29/25 18:00 Compazine) Opioid HPI Opioid Management Most Recent Opioid Data: Last Pain Scale 0 Today, 19:07 Last ED Pain Assessment Today, 19:07 Last MAR Pain Assessment Today, 18:41 Ur Phencyclidine Scrn, (NEGATIVE) Negative 11/03/23, 05:15 Review of Systems ROS Status of ROS 10 or more systems reviewed and unremarkable except as noted in history and below [facility] Medical History (Updated 01/29/25 @ 18:34 by Jeremy Valentine NP) Rhinitis ?J31.0 - Chronic rhinitis (ICD-10) ADHD ?F90.9 - Attention-deficit hyperactivity disorder, unspecified type (ICD-10) Anxiety ?F41.9 - Anxiety disorder, unspecified (ICD-10) Anemia ?D64.9 - Anemia, unspecified (ICD-10) Surgical History (Updated 11/03/23 @ 06:40 by Antonina Eduardo) H/O hemorrhoidectomy ?Z98.890 - Other specified postprocedural states (ICD-10) [place] teeth removed ?K08.409 - Partial loss of teeth, unspecified cause, unspecified class (ICD-10) Family History (Updated 11/03/23 @ 06:47 by Antonina Eduardo) Grandmother Family history of cancer Family history of diabetes mellitus Grandfather Family history of cancer Family history of hypertension Family history of stroke Aunt Family history of stroke Social History (Updated 11/03/23 @ 06:48 by Antonina Eduardo) Within the past year, how often did you have a drink containing alcohol: never Score interpretation: A score less than 3 is consistent with normal alcohol consumption. Smoking status: Former smoker Non-prescribed substance use: former substance user Non-prescribed substance use details: Medical marijuana Highest level of school completed/degree received: some college, no degree Little interest or pleasure in doing things: not at all Feeling down, depressed, or hopeless: not at all Feel stressed/tense/nervous/anxious/difficulty sleeping: not at all Do you think of yourself as: straight/heterosexual Gender Identity: female Exam Narrative Exam Narrative: Constituational: Awake/ alert, no apparent distress, well hydrated HENMT: normocephalic, external ears normal, moist oral mucous membranes and oropharynx normal Eyes: EOMI and conjunctivae normal Neck: ROM intact Chest: inspection of chest normal Respiratory: Normal respiratory effort, clear to auscultation bilaterally Cardio: regular rate and regular rhythm GI: soft to palpation and non-tender Back: + Mild/moderate discomfort to paravertebral lower lumbar region with R sciatic notch tenderness. MSK: ROM intact, +NVI Skin: no rashes or petechiae Neuro: no focal deficits Psych: mental status grossly normal Constitutional Vital Signs, click to edit/add: Last Vital Signs Temp 98.2 F 01/29/25 17:55 Pulse 82 01/29/25 19:47 Resp 18 01/29/25 19:47 BP 138/78 01/29/25 19:47 Pulse Ox 100 01/29/25 19:47 O2 Del Method Room Air 01/29/25 17:55 Course Vital Signs Vital signs: Vital Signs Temperature 98.2 F 01/29/25 17:55 Pulse Rate 79 01/29/25 17:55 Respiratory Rate 18 01/29/25 17:55 Blood Pressure 133/83 01/29/25 17:55 Pulse Oximetry 100 01/29/25 17:55 Oxygen Delivery Method Room Air 01/29/25 17:55 Temperature 98.2 F 01/29/25 17:55 Pulse Rate 82 01/29/25 19:47 Respiratory Rate 18 01/29/25 19:47 Blood Pressure 138/78 01/29/25 19:47 Pulse Oximetry 100 01/29/25 19:47 Oxygen Delivery Method Room Air 01/29/25 17:55 Medical Decision Making MDM Narrative Medical decision making narrative: Patient is a well-appearing 29-year-old female who presented to the emergency department today for evaluation concerns for acute on chronic lower lumbar region back pain. Initial examination without a concerning neurovascular motor findings on exam. Patient does have clinical evidence consistent with lumbar radiculopathy of the right leg. X-ray imaging of lumbar spine without critical findings per ER interpretation. Patient to receive supportive measures of [place] and on reevaluation she reported some improvement in pain. Discussed the above findings with the patient including recommendations for supportive care. Historically she is on cyclobenzaprine as needed which she states she has not taken in a while due to no relief in pain. Will discharge home with [place] for severe pain and Medrol Dosepak for additional medical therapy for lumbar radiculopathy. Reiterated close follow-up with her primary care provider for reevaluation and resuming physical therapy. Discussed signs and symptoms of any worsening condition and when to consider reevaluation by the emergency department. Patient verbalized an understanding of this and is agreeable with the plan to be discharged home. Medical Records Medical records reviewed: Yes I reviewed the patient's medical records Imaging Data XR lumbar spine: Attestation: I personally reviewed and interpreted this imaging study as follows: My impression: No fracture Discharge Plan Discharge Chief Complaint: Back Pain/Injury Clinical Impression: Lumbar radiculopathy Patient Disposition: Home, Self-Care Prescriptions / Home Meds: New methylprednisolone [Medrol (Michael)] 4 mg tablets,dose pack 4 mg PO QID Qty: 21 0RF hydrocodone-acetaminophen 5-325 mg tablet 1 tab PO Q6H PRN (Reason: pain) Qty: 7 0RF No Action Complete Annette DHA 29 mg iron- 1 mg-200 mg combo pack 1 pkg PO DAILY Print Language: Greenlandic Instructions: Lumbar Radiculopathy (ED) Additional Instructions: Rest, ice any sore areas. Avoid heat. Take Tylenol and ibuprofen as needed for any pain. May continue to use your muscle relaxers as needed. May take [place] as needed for severe pain. Take Medrol Dosepak as prescribed. Please follow-up closely with your primary care provider for reevaluation as discussed Referrals: Physician,Non-Staff, MD [Primary Care Provider] - 1 week
[2025-01-29] MEDS: HYDROCODONE/ACET 5-325 MG TABLET 1 TAB PO (18:41)
--- NOTE | 2025-01-29 19:30 | PC.NURSE ---
this patient awake and alert lying supine on the bed watching tv, i introduced myself to this patient and update her that we are waiting [facility] to [facility] to [facility]ray dept. this patient voices no concerns,needs and shows no signs of distress
[2025-01-29 19:47] VITALS: BP 138/78; PULSE 82; O2SAT 100
--- NOTE | 2025-01-29 19:49 | PC.NURSE ---
this patient is back from from x-ray dept, via wheelchair. this patient requested to stand, this patient voices her pain is at 6 or 7 , patient updated that now e wait for the x-ray results to come back
--- NOTE | 2025-01-29 20:13 | PC.NURSE ---
this patient ambulated to the restroom without any problems
[2025-01-29 20:36] VITALS: BP 116/70; PULSE 71; TEMP 36.9; O2SAT 100
--- NOTE | 2025-01-29 20:37 | PC.NURSE ---
i gave this patient verbal and written discharge orders along with 1Rx, and 1 e-script and this patient voices yes to understanding these. at time of discharge this patient voicesno concerns, needs and shows no signs of distress. i also told this patient not drive a automobile operate any machinery or go to work while taking these pain medication
== END 2025-01-29 20:40 | disposition home or self-care (01) ==
PROVIDERS: Emergency Provider Emergency Medicine
DX: M54.16 Radiculopathy, lumbar region (principal); Z87.891 Personal history of nicotine dependence
CPT/HCPCS: 72100; 99283

== ENCOUNTER 2025-02-02 13:03 | Emergency (ER) | payer OTHER, SELFPAY ==
--- OUTSIDE RECORDS SUMMARY | 2025-02-02 13:14 | XMS_ITS | Encounter Summary ---
Author Organization [facility] Address [address] [place] [address] Care Team Providers Care Business Developer Name Role Phone Jeri Eller Unavailable Encounter Details Date Type Department Care Team (Late st Contact Info) Description 12/20/2024 Abstract [facility] [address] [facility] [place] [address] Timothy Bourgeois [facility] [place] [id number] Social History Tobacco Use Types Packs/Day Years [...] 01/01/2026 1:00 PM EDT Office Visit [facility] [address] [place] [address] Timothy Bourgeois DO [facility] [place] [address] documented as of this encounter Visit Diagnoses Not on filedocumented in this encounter Care Teams Business Developer Relationship Specialty Start Date End Date Jeri Eller PA [address] [place] [address] PCP - Medical [employer] 06/19/22 07/19/99 documented as of this encounter
--- OUTSIDE RECORDS SUMMARY | 2025-02-02 13:14 | XMS_ITS | Encounter Summary ---
Author Organization [facility] tem Address [id number] [address] [place] [address] Care Team Providers Care Postulant Name Role Phone Carlos A Moreno DO Primary Care Provider [phone] Encounter Details Date Type Department Care Team (Late st Contact Info) Description 10/27/2024 Telephone [facility] Internal Medicine - Family Medicine [address] [place] [id number] Lisa Martinez CMA Social History Tobacco Use [...] declined 05/01/2020 How often do you attend baptism or anabaptist serv ices? Patient declined 05/01/2020 Do you belong to any clubs o r organizations such as baptism groups, unions, fraternal or athletic groups, or [...] Answer Date Recorded Total Score 6 07/18/2024 [facility] Questionnaire Answer Date [...] needed for daily living? Patient declined 08/24/2024 Mission Depression Scale Answer Date Recorded Mission Depression Scale Total 6 05/02/2020 The thought [...] Do you need help finding a [facility] career center and/or a training program? [...] documented as of this encounter Care Teams Postulant Relationship Specialty Start Date End Date Carlos A Moreno DO [address] [place] [address] PCP - General Internal Medicine 07/15/24 documented as of this encounter
--- OUTSIDE RECORDS SUMMARY | 2025-02-02 13:14 | XMS_ITS | Encounter Summary ---
Author Organization [facility] Address [address] [place] [address] Care Team Providers Care Serging Machine Operator Name Role Phone Daphnie Jeri GARRETT Unavailable Encounter Details Date Type Department Care Team (Late st Contact Info) Description 06/04/2023 Clinisync Result Encounter [facility] External Department Unsolicited Janki Bourgeois, [address] [place], [place] [id number] Social History Tobacco Use Types Packs/Day Years [...] EDT Office Visit [facility] [address] [facility] [place] [address] Janki Bourgeois DO [facility] [address] [place], [place] [id number] documented as of this encounter Procedures Procedure Name Priority Date/Time Associated Diagnosis Comments US OB CERVICAL LENGTH 06/04/2023 1:28 AM EST documented in this encounter Results * US OB CERVICAL LENGTH (06/04/2023 1:28 AM EST) Anatomical Region Laterality Modality Other 06/04/2023 1:28 AM EST Narrative 06/04/2023 1:28 [place] [address] Ultrasound Report Signed Patient: JODI BOSTON MR#: [id number] : 1995 Acct:[id number] Age/Sex: 28 / F ADM Date: 06/03/23 Loc: US Attending Dr: Janki Bourgeois D.O. Ordering Physician: Janki Bourgeois D.O. Date of Service: 06/03/23 Procedure(s): US OB cervical length Accession Number(s): [id number] cc: Janki Bourgeois D.O.; Physician,Non-Staff [place] [address] Patient Name: JODI BOSTON MRN: [id number] date: 1995 Sex: F Assigned Patient Location: US Current Patient Location: Accession/Order Number: [id number] Exam Date: 06/03/2023 11:05 Report Date: 06/04/2023 [...] Signed By: 06/04/23 0131 DD/ 7 TD/TT: Deburrer Strip: Procedure Note Radiology, Radiologist, MD - 06/04/2023 [place] [address] Ultrasound Report Signed Patient: JODI BOSTONMR#: [id number] : 1995Acct:[id number] Age/Sex: 28 / FADM Date: 06/03/23 Loc: US Attending Dr: Janki Bourgeois D.O. Ordering Physician: Janki Bourgeois D.O. Date of Service: 06/03/23 Procedure(s): US OB cervical length Accession Number(s): [id number] cc: Janki Bourgeois D.O.; Physician,Non-Staff [place] [address] Patient Name: JODI BOSTON MRN: [id number] date: 1995 Sex: F Assigned Patient Location: US Current Patient Location: Accession/Order Number: [id number] Exam Date: 06/03/2023 11:05 Report Date: 06/04/2023 [...] M.D. Signed By:06/04/23 0131 DD/ 0128 TD/TT: Deburrer Strip: us Janki Bourgeois DO [facility] Final Result documented in this encounter Visit Diagnoses Not on filedocumented in this encounter Care Teams Serging Machine Operator Relationship Specialty Start Date End Date Jeri Eller PA [address] [place] [address] [place] [address] PCP - Medical [employer] 06/19/22 07/19/99 documented as of this encounter
--- OUTSIDE RECORDS SUMMARY | 2025-02-02 13:14 | XMS_ITS | Encounter Summary ---
Author Organization [facility] tem Address [facility] [address] [place] [address] Care Team Providers Care Payloader Machine Operator Name Role Phone Carlos A Moreno DO Primary Care Provider [phone] Encounter Details Date Type Department Care Team (Late st Contact Info) Description 10/31/2024 Orders Only [facility] Internal Medicine - Family Medicine [address] [place] [address] Carlos A Moreno DO [address] [place] [address] Lumbar spine pain (Primary Dx) Social History [...] declined 05/01/2020 How often do you attend christianity or mormonism serv ices? Patient declined 05/01/2020 Do you belong to any clubs o r organizations such as christianity groups, unions, fraternal or athletic groups, or [...] Answer Date Recorded Total Score 6 07/18/2024 [facility] - Occupational Stress [...] needed for daily living? Patient declined 08/24/2024 [place] Depression Scale Answer Date Recorded [place] Depression Scale Total 6 05/02/2020 The thought [...] Recorded Do you need help finding a [employer] career center and/or a training program? No [...] documented as of this encounter Care Teams Payloader Machine Operator Relationship Specialty Start Date End Date Carlos A Moreno DO [address] [place] [address] PCP - General Internal Medicine 07/15/24 documented as of this encounter
--- OUTSIDE RECORDS SUMMARY | 2025-02-02 13:14 | XMS_ITS | Encounter Summary ---
Author Organization [facility] tem Address [facility]-[id number] [address] [place] [address] Care Team Providers Care Seaport Planning Manager Name Role Phone Carlos A Moreno DO Primary Care Provider [phone] Encounter Details Date Type Department Care Team (Late st Contact Info) Description 08/29/2024 Orders Only [facility] Internal Medicine - Family Medicine [address] [place] [address] Carlos A Moreno DO [address] [place] [address] Acute viral bronchitis (Primary Dx) Social History [...] declined 05/01/2020 How often do you attend lutheran or jehovah's witness serv ices? Patient declined 05/01/2020 Do you belong to any clubs o r organizations such as lutheran groups, unions, fraternal or athletic groups, or [...] Answer Date Recorded Total Score 6 07/18/2024 [facility] Occupat ional Health - Occupational [...] needed for daily living? Patient declined 08/24/2024 [place] Depression Scale Answer Date Recorded [place] Depression Scale Total 6 05/02/2020 The thought [...] Recorded Do you need help finding a [facility] and/or a training [...] documented as of this encounter Care Teams Seaport Planning Manager Relationship Specialty Start Date End Date Carlos A Moreno DO [address] [place] [address] PCP - General Internal Medicine 07/15/24 documented as of this encounter
--- OUTSIDE RECORDS SUMMARY | 2025-02-02 13:14 | XMS_ITS | Encounter Summary ---
Author Organization [facility] tem Address [id number] [address] [place] [address] Care Team Providers Care Data Acquisition Technician Name Role Phone Carlos A Moreno DO Primary Care Provider [phone] Encounter Details Date Type Department Care Team (Late st Contact Info) Description 11/29/2024 Orders Only [facility] Internal Medicine - Family Medicine [address] [place] [address] Carlos A Moreno DO [address] [place] [address] Persistent depressive disorder (Primary Dx) Social History [...] declined 05/01/2020 How often do you attend protestant or temple serv ices? Patient declined 05/01/2020 Do you belong to any clubs o r organizations such as protestant groups, unions, fraternal or athletic groups, or [...] Answer Date Recorded Total Score 9 11/10/2024 [facility] of Occupat ional Health - Occupational Stress [...] needed for daily living? Patient declined 08/24/2024 [place] Depression Scale Answer Date Recorded [place] Depression Scale Total 6 05/02/2020 The thought [...] Recorded Do you need help finding a [facility] and/or a training [...] documented as of this encounter Care Teams Data Acquisition Technician Relationship Specialty Start Date End Date Carlos A Moreno DO [address] [place] [address] PCP - General Internal Medicine 07/15/24 documented as of this encounter
--- OUTSIDE RECORDS SUMMARY | 2025-02-02 13:14 | XMS_ITS | Encounter Summary ---
Author Organization [facility] tem Address [place]-[id number] [address] [place] [address] Care Team Providers Care Business Analysis Analyst Name Role Phone Carlos A Moreno DO Primary Care Provider [phone] Encounter Details Date Type Department Care Team (Late st Contact Info) Description 10/03/2019 Telephone [facility] [address] [place] [phone] Charla Null, DOUGIE-SKYLAR [address] [place], [place] [id number] Social History Tobacco Use Types Packs/Day Years [...] documented as of this encounter Care Teams Business Analysis Analyst Relationship Specialty Start Date End Date Carlos A Moreno DO [address] [place] [address] PCP - General Internal Medicine 07/15/24 documented as of this encounter
--- OUTSIDE RECORDS SUMMARY | 2025-02-02 13:14 | XMS_ITS | Encounter Summary ---
Author Organization [facility] tem Address [facility]-[id number] [address] [place] [address] Care Team Providers Care Commercial Real Estate Appraiser Name Role Phone Carlos A Moreno DO Primary Care Provider [phone] Reason for Visit * Reason Onset Date Comments Med Refill 01/30/2025 Encounter Details Date Type Department Care Team (Late st Contact Info) Description 01/30/2025 Refill [facility] Internal Medicine - Family Medicine [address] [place] [address] Carlos A Moreno DO [address] [place] [address] Lumbar spine pain Social History Tobacco Use Types Packs/Day Years [...] declined 05/01/2020 How often do you attend denominational or episcopal serv ices? Patient declined 05/01/2020 Do you belong to any clubs o r organizations such as denominational groups, unions, fraternal or athletic groups, or [...] Answer Date Recorded Total Score 9 11/10/2024 [facility] of Occupat ional Health - Occupational [...] needed for daily living? Patient declined 08/24/2024 [place] Depression Scale Answer Date Recorded [place] Depression Scale Total 6 05/02/2020 The thought [...] Recorded Do you need help finding a [facility] career center and/or a training program? No [...] this encounter Visit Diagnoses Diagnosis Lumbar spine pain documented in this encounter Additional Health Concerns Assessment Noted Time PHQ-9 Depression Total Score: 9 11/11/19 25 3:42 PM EDT A Body Mass Index follow-up plan has been documented for the patient 02/21/2022 9:54 AM EDT documented as of this encounter Care Teams Commercial Real Estate Appraiser Relationship Specialty Start Date End Date Carlos A Moreno DO [address] [place] [address] PCP - General Internal Medicine 07/15/24 documented as of this encounter
--- OUTSIDE RECORDS SUMMARY | 2025-02-02 13:14 | XMS_ITS | Encounter Summary ---
Author Organization [facility] tem Address [facility]-[id number] [address] [place] [address] Care Team Providers Care Dolly Pusher Name Role Phone Carols A Moreno DO Primary Care Provider [phone] Encounter Details Date Type Department Care Team (Late st Contact Info) Description 05/23/2024 Telephone [facility] Internal Medicine - Family Medicine [address] [place] [phone] Rocio Jo CMA Social History Tobacco Use [...] declined 05/01/2020 How often do you attend oriental orthodox or restoration serv ices? Patient declined 05/01/2020 Do you belong to any clubs o r organizations such as oriental orthodox groups, unions, fraternal or athletic groups, or [...] Answer Date Recorded Total Score 0 05/01/2020 [facility] - Occupational Stress Questionnaire Answer Date Recorded [...] needed for daily living? Patient declined 05/01/2020 [place] Depression Scale Answer Date Recorded [place] Depression Scale Total 6 05/02/2020 The thought of harming myself has occurred to me . Never 05/02/2020 Childcare Answer Date Recorded Do problems getting child ca re make it difficult for you to work or study? No 05/01/2020 Employment Answer Date Recorded Do you need help finding a [employer] career center and/or a training program? No [...] documented as of this encounter Care Teams Dolly Pusher Relationship Specialty Start Date End Date Carlos A Moreno DO [address] [place] [address] PCP - General Internal Medicine 07/15/24 documented as of this encounter
--- OUTSIDE RECORDS SUMMARY | 2025-02-02 13:14 | XMS_ITS | Encounter Summary ---
Author Organization [facility] tem Address [facility][id number] [address] [place] [address] Care Team Providers Care Station Agent Name Role Phone Carlos A Moreno DO Primary Care Provider [phone] Encounter Details Date Type Department Care Team (Late st Contact Info) Description 07/28/2024 Orders Only [facility] Internal Medicine - Family Medicine [address] [place] [address] Carlos A Moreno DO [address] [place] [address] Abnormal bruising (Primary Dx) Social History Tobacco [...] declined 05/01/2020 How often do you attend uatsdin or jewish serv ices? Patient declined 05/01/2020 Do you belong to any clubs o r organizations such as uatsdin groups, unions, fraternal or athletic groups, or [...] Answer Date Recorded Total Score 6 07/18/2024 [facility]at [facility] - [...] needed for daily living? Patient declined 05/01/2020 [place] Depression Scale Answer Date Recorded [place] Depression Scale Total 6 05/02/2020 The thought [...] - 480 mg/dL 07/29/2024 9:20 PM EST [facility] Blood (PLASMA) 07/29/2024 4: 09 PM EST 07/29/2024 4:10 PM EST us Carlos A Moreno DO LAB BLOOD ORDERABLES Final Resul t Performing Organization Address City/State/[facility] Co de Phone Number [facility] [address], [address] [place] [address] documented in this encounter Visit Diagnoses Diagnosis Abnormal bruising- Primary Other symptoms involving skin and integumentary tissues documented in this encounter Additional Health Concerns Assessment Noted Time PHQ-9 Depression Total Score: 6 07/18/20 24 2:57 PM EST A Body Mass Index follow-up plan has been documented for the patient 02/21/2022 9:54 AM EDT documented as of this encounter Care Teams Station Agent Relationship Specialty Start Date End Date Carlos A Moreno DO [address] [place] [address] PCP - General Internal Medicine 07/15/24 documented as of this encounter
--- OUTSIDE RECORDS SUMMARY | 2025-02-02 13:14 | XMS_ITS | Clinical Summary ---
Author Organization [facility] Address [address], [address] [place] [address] Care Team Providers Care Atv Mechanic Name Role Phone Unavailable Primary Care Provider [...]
--- OUTSIDE RECORDS SUMMARY | 2025-02-02 13:14 | XMS_ITS | Encounter Summary ---
Author Organization [facility] Address [address] [place] [address] Care Team Providers Care Broke Beater Name Role Phone Daphnie Jeri GARRETT Unavailable Encounter Details Date Type Department Care Team (Late st Contact Info) Description 04/09/2023 Clinisync Result Encounter [facility] External Department Unsolicited Janki Bourgeois, DO [address] [place] [address] Social History Tobacco Use Types Packs/Day [...] EDT Office Visit [facility] OB [address] [place] [phone] Janki Bourgeois, [address] [place], [place] [id number] documented as of this encounter Procedures Procedure Name Priority Date/Time Associated Diagnosis Comments US OB TRANSVAGINAL 04/09/2023 3: 52 PM EDT documented in this encounter Results * US OB TRANSVAGINAL (04/09/2023 3:52 PM EDT) Anatomical Region Laterality Modality Other 04/09/2023 3:52 PM EDT Narrative 04/09/2023 3:[address] [place] [address] Ultrasound Report Signed Patient: JODI BOSTON MR#: [id number] : 1995 Acct:[id number] Age/Sex: 28 / F ADM Date: 04/09/23 Loc: US Attending Dr: Janki Bourgeois D.O. Ordering Physician: Janki Bourgeois D.O. Date of Service: 04/09/23 Procedure(s): US OB transvaginal Accession Number(s): [id number] cc: Janki Bourgeois D.O.; Physician,Non-Staff MWilfred The [address] [address] Patient Name: JODI BOSTON MRN: [id number] date: 1995 Sex: F Assigned Patient Location: US Current Patient Location: LAB Accession/Order Number: [id number] Exam Date: 04/09/2023 13:06 Report Date: 04/09/2023 [...] Signed By: 04/09/23 1555 DD/ 1552 TD/TT: Geodetic Survey Director: Procedure Note Radiology, Radiologist, MD - 04/10/2023 [place] [address] Ultrasound Report Signed Patient: JODI BOSTONMR#: [id number] : 1995Acct:[id number] Age/Sex: 28 / FADM Date: 04/09/23 Loc: US Attending Dr: Janki Bourgeois D.O. Ordering Physician: Janki Bourgeois D.O. Date of Service: 04/09/23 Procedure(s): US OB transvaginal Accession Number(s): [id number] cc: Janki Bourgeois D.O.; Physician,Non-Staff [place] [facility] [place] [id number] Patient Name: JODI BOSTON MRN: [id number] date: 1995 Sex: F Assigned Patient Location: US Current Patient Location: LAB Accession/Order Number: [id number] Exam Date: 04/09/2023 13:06 Report Date: 04/09/2023 [...] M.D. Signed By:04/09/23 1555 DD/ 1552 TD/TT: Geodetic Survey Director: us Janki Christelle DO [facility] Final Result documented in this encounter Visit Diagnoses Not on filedocumented in this encounter Care Teams Broke Beater Relationship Specialty Start Date End Date Jeri Eller PA [address] [place] [address] [place] [address] PCP - Medical [place] [facility] 06/19/22 07/19/99 documented as of this encounter
--- OUTSIDE RECORDS SUMMARY | 2025-02-02 13:14 | XMS_ITS | Encounter Summary ---
[facility] Address [facility][id number] [address] [place] [address] Care Team Providers Care 3Rd Mate Name Role Phone Carlos A Moreno DO Primary Care Provider [phone] Encounter Details Date Type Department Care Team (Late st Contact Info) Description 09/26/2024 [facility] [address] [place] [phone] Carlos A Moreno DO [address] [place] [address] Social History Tobacco Use Types Packs/Day Years [...] declined 05/01/2020 How often do you attend samaritan or mosque serv ices? Patient declined 05/01/2020 Do you belong to any clubs o r organizations such as samaritan groups, unions, fraternal or athletic groups, or [...] 07/18/2024 [facility] of Occupat ional [facility] - Occupational Stress Questionnaire Answer Date [...] needed for daily living? Patient declined 08/24/2024 [place] Depression Scale Answer Date Recorded [place] Depression Scale Total 6 05/02/2020 The thought [...] Recorded Do you need help finding a [employer] career center and/or a training program? [...] documented as of this encounter Care Teams 3Rd Mate Relationship Specialty Start Date End Date Carlos A Moreno DO [address] [place] [address] PCP - General Internal Medicine 07/15/24 documented as of this encounter
--- OUTSIDE RECORDS SUMMARY | 2025-02-02 13:14 | XMS_ITS | Encounter Summary ---
Author Organization [facility] tem Address [facility]-[id number] [address] [place] [address] Care Team Providers Care Marketing Strategist Name Role Phone Carlos A Moreno DO Primary Care Provider [phone] Encounter Details Date Type Department Care Team (Late st Contact Info) Description 01/17/2025 Orders Only [facility] Internal Medicine - Family Medicine [address] [place] [address] Carlos A Moreno DO [address] [place] [address] Wilfred thyroiditis (Primary Dx) Social History Tobacco [...] declined 05/01/2020 How often do you attend mormonism or jainism serv ices? Patient declined 05/01/2020 Do you belong to any clubs o r organizations such as mormonism groups, unions, fraternal or athletic groups, or [...] Answer Date Recorded Total Score 9 11/10/2024 [facility] of Occupat ional Health - Occupational Stress [...] needed for daily living? Patient declined 08/24/2024 [place] Depression Scale Answer Date Recorded [place] Depression Scale Total 6 05/02/2020 The thought [...] Do you need help finding a [facility] and/or a training [...] documented as of this encounter Results * Thyroid profile includes TSH FT4 (01/17/2025 3:45 PM EDT) FREE T4 0.75 0.61 - 1.60 ng/dL 01/17/2025 10:42 PM EDT [facility] TSH 1.91 0.49 - 4.67 uIU/mL 01/17/2025 10:[address] [facility] Blood Venous blood / Unknown Venipuncture / Unknown 01/17/2025 3:45 PM EDT 01/17/2025 3:45 PM EDT us Carlos A Moreno DO LAB BLOOD ORDERABLES Final Resul t [facility] [address] [place] [address], documented in this encounter Visit Diagnoses Diagnosis Wilfred thyroiditis- Primary Chronic lymphocytic thyroiditis documented in this encounter Additional Health Concerns Assessment Noted Time PHQ-9 Depression Total Score: 9 11/11/19 3:42 PM EDT A Body Mass Index follow-up plan has been documented for the patient 02/21/2022 9:54 AM EDT documented as of this encounter Care Teams Marketing Strategist Relationship Specialty Start Date End Date Carlos A Moreno DO [address] [place] [address] PCP - General Internal Medicine 07/15/24 documented as of this encounter
--- OUTSIDE RECORDS SUMMARY | 2025-02-02 13:14 | XMS_ITS | Clinical Summary ---
Author Organization [employer] s tem Address [id number] [address] [place] [address] Care Team Providers Care Proofer Name Role Phone Carlos A Moreno DO Primary Care Provider [phone] Allergies Active Allergy Reactions Criticality Noted Date Comments Prochlorperazine Abnormal Behavior Medium 05/07/2018 Latex Rash Low 08/26/2018 Medications COMPLETE GER DHA 29 mg iron- 1 mg-200 mg combo pack 3 Active cetirizine (ZyrTEC) 10 mg tablet Take 1 tablet (10 mg total) by mouth. prn Active citalopram (CeleXA) 20 mg tabletIndicati ons:Persistent depressive disorder Take 1 tablet (20 mg total) by mouth in the morning. 90 tablet 1 5 Active olopatadine (PATANOL) 0.1 % ophthalmic solutionIndica tions:Seasonal allergies Administer 1 drop to the right eye in the morning and 1 drop before bedtime. 5 mL 5 Active fluticasone propionate (FLONASE) 50 mcg/actuation nasal sprayIndicatio ns:Seasonal allergies Administer 2 sprays into each nostril in the morning. 15.8 mL 5 Active baclofen (LIORESAL) 10 mg tabletIndicati ons:Lumbar spine pain Take 0.5 tablets (5 mg total) by mouth 2 (two) times a day as needed for muscle spasms. 20 tablet 5 Active EPINEPHrine (EPIPEN) 0.3 mg/0.3 mL auto-injector Inject 0.3 mg into the appropriate muscle. Discontinu ed(Patient Stopped On Own) baclofen (LIORESAL) 10 mg tabletIndicati ons:Lumbar spine pain Take 0.5 tablets (5 mg total) by mouth 2 (two) times a day as needed for muscle spasms. 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 Vitamin B12 deficiency (dietary) anemia 03/23/20 20 Overview (03/23/2020): Vit B12 supplementation Iron deficiency anemia 02/10/2020 Resolved Problems Problem Noted Date Diagnosed Date Resolved Date Migraine headache 08/17/2015 05/02/2020 Encounters Date Type Department Care Team Description 01/30/2025 Refill [facility] [address] [place] [address] Carlos A Moreno DO Lumbar spine pain 01/17/2025 Travel 01/17/2025 Orders Only [facility] [address] [place] [address] Carlos A Moreno DO Wilfred thyroiditis (Primary Dx) 12/14/2024 10:00 AM EDT Telemedicine [facility] [address] [place] [address] Susan Myers, INVENTORY ASSOCIATE-SUPREME COURT JUDGE Acute conjunctivitis of right eye, unspecified acute conjunctivitis type (Primary Dx); Seasonal allergies 12/14/2024 Travel 11/29/2024 Orders Only [facility] [address] [place] [address] Carlos A Moreno DO Persistent depressive disorder (Primary Dx) 11/10/2024 11:29 PM EDT - 11/10/2024 11:59 PM EDT [facility] [address] [place] [address] Bilateral sacroiliitis Discharge Disposition: Home 11/10/2024 3:30 PM EDT Office Visit [facility] [address] [place] [address] Carlos A Moreno DO Wilfred thyroiditis (Primary Dx); Bilateral sacroiliitis; Attention deficit hyperactivity disorder (ADHD), unspecified ADHD type; Persistent depressive disorder 11/10/2024 Travel from Last 3 Months Immunizations Immunization Administration [...] declined 05/01/2020 How often do you attend rastafari or yarsanism serv ices? Patient declined 05/01/2020 Do you belong to any clubs o r organizations such as rastafari groups, unions, fraternal or athletic groups, or [...] Answer Date Recorded Total Score 9 11/10/2024 [facility] of Occupat ional Health - Occupational Stress [...] needed for daily living? Patient declined 08/24/2024 [place] Depression Scale Answer Date Recorded [place] Depression Scale Total 6 05/02/2020 The thought [...] Recorded Do you need help finding a ocal career center and/or a training program? [...] Due Date Last Done Comments COVID-19 Vaccine ( - 2023-2 5 season) 2024 11/12/2021, 06/20/2021, 12/07/2020, Additional history exists Influenza Vaccine 03/20/2025 09/01/2019, 05/08/2016 Adult BMI Screening 11/10/2025 11/10/2024 Depression Screening 11/10/2025 11/10/2024, 05/02/20 20 Tobacco Screening 12/14/2025 12/14/2024 Pap Smear 12/27/2027 12/26/2024, 08/0 11/2021, 05/27/2018 DTaP,Tdap and Td Vaccines (7 - Td or Tdap) 02/06/2030 02/07/2020, 08/06/2019, 09/17/2000, Additional history exists Medical Devices Not on file Procedures Procedure Name Priority Date/Time Associated Diagnosis Comments THYROID PROFILE INCLUDES TSH FT4 Routine 01/17/2025 3:45 PM EDT Wilfred thyroiditis HLA-B27 ANTIGEN Routine 11/10/2024 4:28 PM EDT Bilateral sacroiliitis ERYTHROCYTE SEDIMENTATION RATE (ESR) Routine 11/10/2024 4:28 PM EDT Bilateral sacroiliitis PAP SMEAR Routine 02/21/2022 8:55 AM EDT Screening for cervical cancer from Last 3 Months or Most Recently Relevant to Health Maintenance Results * Thyroid profile includes TSH FT4 (01/17/2025 3:45 PM EDT) FREE T4 0.75 0.61 - 1.60 ng/dL 01/17/2025 10:42 PM EDT [facility] TSH 1.91 0.49 - 4.67 uIU/mL 01/17/2025 10:42 PM EDT [facility] Blood Venous blood / Unknown Venipuncture / Unknown 01/17/2025 3:45 PM EDT 01/17/2025 3:45 PM EDT Carlos A Moreno LAB BLOOD ORDERABLES Final Resul t [facility] [address] [facility] [address] [place] [address], [place] [phone] * Erythrocyte Sedimentation Rate (ESR) (11/10/2024 4:28 PM EDT) Sed Rate 6 0 - 20 mm/h 11/11/2024 12:38 AM EDT [facility] Blood / Unknown 11/10/2024 4 :28 PM EDT 11/10/2024 11:38 PM EDT Carlos A Moreno LAB BLOOD ORDERABLES Final Resul t [facility] [address] [facility] [place] [address] * HLA-B27 antigen (11/10/2024 4:28 PM EDT) HLA-B27 Negative Negative^Ne gative 11/11/2024 12:39 PM EDT [facility] Blood / Unknown 11/10/2024 4 :28 PM EDT 11/10/2024 11:38 PM EDT Carlos A Moreno LAB BLOOD ORDERABLES Final Resul t MAY [facility] [address] [place] [address], [address] [place] [address] * Pap Smear (02/21/2022 8:55 AM EDT) 02/21/2022 8:55 AM EDT 02/21/2022 8:56 AM EDT Narrative COPATH - 03/01/2022 12:30 PM EDT [email or web address] [address] [place] [address] Gynecologic Cytology Consultation Patient Name:JODI BOSTON:1995 (Age: 26)Gender:FTaken:02/21/2022eported:03/01/2022hysician(s):ETRRENCE Staples ([phone])Copy To: Rec. #:[id number]: #[id number] Final Cytologic Interpretation ThinPrep Pap Test (Cervical): Satisfactory for evaluation. A transformation zone component was not noted. NEGATIVE FOR INTRAEPITHELIAL LESION OR MALIGNANCY. lrd/03/01/2022 Interpretation performed [email or web address] [address], License number: [id number]. Electronically Signed Out By CYNDY Marinelli, (ASCP) Date of Last Menstrual Period: 01/31/22 Other Clinical Conditions: Oral contraceptive Z12.4 Screening for malignant neoplasm of cervix Source of Specimen ThinPrep Pap Test (Cervical) Thin Prep Pap (COIN TELLER) Fee Code(s): G0145 us Elif Kan Issacmatteocallum INVENTORY ASSOCIATE-SUPREME COURT JUDGE PATHOLOGY/CYTOLOGY ORDER ANTONIA Final Result COPATH from Last 3 Months or Most [...] 5:25 PM 04/24/2020 6:54 PM Care Teams Proofer Relationship Specialty Start Date End Date Carlos A Moreno DO [address] [place] [address] PCP - General Internal Medicine 07/15/24
--- OUTSIDE RECORDS SUMMARY | 2025-02-02 13:14 | XMS_ITS | Encounter Summary ---
Author Organization [facility] Address [address] [place] [address] Care Team Providers Care Brand Coordinator Name Role Phone Jeri Eller Unavailable Encounter Details Date Type Department Care Team (Late st Contact Info) Description 09/02/2023 Abstract [facility] [address] [place] [address] Joyce Guaman LPN 102 [email or web address] [facility] Yen HERNANDEZ [facility] Social History Tobacco Use Types Packs/Day Years [...] Office Visit [facility] [address] [place] [address] Timothy Bourgeois [address] [facility] [address] [place], [place] [id number] documented as of this encounter Visit Diagnoses Not on filedocumented in this encounter Care Teams Brand Coordinator Relationship Specialty Start Date End Date Jeri Eller PA [address] [facility] [place] [address] PCP - Medical [employer] 06/19/22 07/19/99 documented as of this encounter
--- OUTSIDE RECORDS SUMMARY | 2025-02-02 13:14 | XMS_ITS | Encounter Summary ---
Author Organization [employer] tem Address [id number] [address] [place] [address] Care Team Providers Care Manager University Name Role Phone Carlos A Moreno DO Primary Care Provider [phone] Encounter Details Date Type Department Care Team (Late st Contact Info) Description 07/21/2024 Orders Only [facility] [address] [place] [address] Carlos A Moreno DO [address] [place] [address] Hypothyroidism, unspecified type (Primary Dx) Social History [...] declined 05/01/2020 How often do you attend taoism or temple serv ices? Patient declined 05/01/2020 Do you belong to any clubs o r organizations such as taoism groups, unions, fraternal or athletic groups, or [...] Answer Date Recorded Total Score 6 07/18/2024 [facility] of Occupat ional Health - [...] needed for daily living? Patient declined 05/01/2020 [place] Depression Scale Answer Date Recorded [place] Depression Scale Total 6 05/02/2020 The thought [...] - 178 ng/dL 07/29/2024 9:44 PM EST [facility] Serum / Unknown 07/29/2024 4 :09 PM EST 07/29/2024 4:10 PM EST Carlos A Moreno LAB BLOOD ORDERABLES Final Resul t Performing Organization Address [facility] Co de Phone Number [facility] [address] [facility] [address] [place] [address] * (ABNORMAL) Thyroid antibodies includes TPO and TGAB (07/29/2024 4:09 PM EST) Thyroperoxidase AB 585(H) <10 IU/mL 2024 9:57 PM EST [facility] Thyroglobulin Ab 8(H) <4.0 IU/mL 07/29/2024 9:56 PM EST [facility] PLASMA 07/29/2024 4:09 PM EST 07/29/2024 4:10 PM EST Carlos A Moreno DO LAB BLOOD ORDERABLES Final Resul t Performing Organization Address [facility] Co de Phone Number [facility] [address] [place] [address], [facility] [address] [place] [address] documented in this encounter Visit Diagnoses Diagnosis Hypothyroidism, unspecified type- Primary documented in this encounter Additional Health Concerns Assessment Noted Time PHQ-9 Depression Total Score: 6 07/18/20 24 2:57 PM EST A Body Mass Index follow-up plan has been documented for the patient 02/21/2022 9:54 AM EDT documented as of this encounter Care Teams Manager University Relationship Specialty Start Date End Date Carlos A Moreno DO [address] [place] [address] PCP - General Internal Medicine 07/15/24 documented as of this encounter
--- OUTSIDE RECORDS SUMMARY | 2025-02-02 13:14 | XMS_ITS | Encounter Summary ---
Author Organization [facility] tem Address [id number] [address] [place] [address] Care Team Providers Care Excellence Manager Name Role Phone Carlos A Moreno DO Primary Care Provider [phone] Encounter Details Date Type Department Care Team (Late st Contact Info) Description 10/05/2024 Orders Only [facility] [address] [place] [address] Carlos A Moreno DO [address] [place] [address] Social History Tobacco Use Types Packs/Day Years [...] declined 05/01/2020 How often do you attend gnosticism or protestant serv ices? Patient declined 05/01/2020 Do you belong to any clubs o r organizations such as gnosticism groups, unions, fraternal or athletic groups, or [...] Answer Date Recorded Total Score 6 07/18/2024 [facility] of Occupat ional [facility] - Occupational Stress Questionnaire Answer Date Recorded [...] needed for daily living? Patient declined 08/24/2024 [place] Depression Scale Answer Date Recorded [place] Depression Scale Total 6 05/02/2020 The thought [...] Recorded Do you need help finding a [employer] career center and/or a training program? [...] documented as of this encounter Care Teams Excellence Manager Relationship Specialty Start Date End Date Carlos A Moreno DO [address] [place] [address] PCP - General Internal Medicine 07/15/24 documented as of this encounter
--- OUTSIDE RECORDS SUMMARY | 2025-02-02 13:14 | XMS_ITS | Clinical Summary ---
Author Organization [facility] Address [address] [place] [address] Care Team Providers Care Director Of Vendor Management Name Role Phone Unavailable Primary Care Provider Unavailabl e Social History Tobacco Use Types Packs/Day Years Used Date Smoking Tobacco: Never Assessed Comments Unknown Sex and Gender Information Value Date Recorded Sex Assigned at Not on file Legal Sex Female 12:33 AM EDT Gender Identity Not on file Sexual Orientation Not on file Plan of Treatment Not on file
--- OUTSIDE RECORDS SUMMARY | 2025-02-02 13:14 | XMS_ITS | Clinical Summary ---
Author Organization [facility] Address [address] [place] [address] Care Team Providers Care Alum Plant Supervisor Name Role Phone Jeri Eller Unavailable Allergies Active Allergy Reactions Criticality Noted Date [...] Active citalopram (CeleXA) 40 MG tabletIndication s: depression,Anxie ty, generalized Take 1 tablet (40 mg) by mouth Daily 30 tablet 11 5 Active Active Problems Problem Noted Date Diagnosed Date depression 03/14/2024 Encounters Date Type Department Care Team Description 01/04/2025 Orders Only [facility] [address] [place] [phone] Vickie Corbin MA 12/26/2024 1:00 PM EDT Office Visit [facility] [address] [place] [address] [place] [phone] Timothy Bourgeois DO Well woman exam with routine gynecological exam; depression ; Anxiety, generalized 12/26/2024 Clinisync Result Encounter [facility] External Department Unsolicited Timothy Bourgeois, 12/26/2024 Bamboo flowsheet [facility] [address] [place] [address] [place] [address] Timothy Bourgeois, 12/20/2024 Abstract [facility] [address] [place] [address] Timothy Bourgeois DO from Last 3 Months Social History Tobacco [...] 01/01/2026 1:00 PM EDT Office Visit [facility] [address] [place] [phone] Timothy Bourgeois, [address] [place] [address] [address] [place], [place] [phone] Health Maintenance Due Date Last Done Comments Influenza Vaccine (#1) 2025 05/08/2016 Procedures Procedure Name Priority Date/Time Associated Diagnosis Comments IGP,APTIMA HPV,AGE GDLN Routine 12/26/2024 1:09 PM EDT PAP SMEAR Routine 12/26/2024 12:00 AM EDT from Last 3 Months Results * IGP,APTIMA HPV,AGE GDLN (12/26/2024 1:09 PM EDT) AGE GDLN ACOG TESTING Note . [facility] Comment: TESTS RESULT FLAG UNITS REF RANGE LAB Clinician Provided Cytology Information Source.............Cervix;Endocervix No. of containers..01 ThinPrep Vial Patricia MORRIS Erin... FLAG LEGEND: L-Low Normal,H-High Normal,LL-Alert Low,HH-Alert High <-Panic Low,>-Panic High,A-Abnormal,AA-Critical Abnormal Performed at: 01 =[facility] [address] [place] [address] Rohini Lemos MD, IGP, RFX APTIMA HPV ASCU Note . [facility] Comment: TESTS RESULT FLAG UNITS REF RANGE LAB DIAGNOSIS: 02 NEGATIVE FOR INTRAEPITHELIAL LESION OR MALIGNANCY. Specimen adequacy: 02 Satisfactory for evaluation. Endocervical and/or squamous metaplastic cells (endocervical component) are present. Performed by: Emilie Aparicio Creel Hand ([facility]) . 02 Note: Note 02 The Pap [...] <-Panic Low,>-Panic High,A-Abnormal,AA-Critical Abnormal Performed at: [address] [address] Rohini Lemos MD, Performed at: = - [address] [id number] Director Business: Rohini Lemos MD, Phone: [phone] Performed at: [facility] [address] [id number] Director Business: Rohini Lemos MD, Phone: [phone] 12/26/2024 1:09 PM EDT 12/26/2024 9:47 PM EDT Narrative [facility] - 12/29/2024 2:08 PM EDT BRUSH-SPATULA CERVIX ENDOCERVIX us Timothy Christelle DO LAB BLOOD ORDERABLES Final Resul t [facility] * Pap Smear (12/26/2024 12:00 AM EDT) Swab Cervical swab / Unknown us Timothy Christelle DO LAB CYTOLOGY ORDERABLES Final Re sult EXTERNAL LAB from Last 3 Months Insurance [employer] Care Teams Alum Plant Supervisor Relationship Specialty Start Date End Date Jeri Eller PA [address] [facility] [place] [address] PCP - Medical [place] [employer] 06/19/22 07/19/99
--- OUTSIDE RECORDS SUMMARY | 2025-02-02 13:14 | XMS_ITS | Encounter Summary ---
Author Organization [facility] Address [address] [place] [address] Care Team Providers Care Television Script Writer Name Role Phone Jeri Eller Unavailable Encounter Details Date Type Department Care Team (Late st Contact Info) Description 09/01/2023 Abstract [facility] OB [address] [facility] [place] [address] Joyce Guaman LPN [address] [employer] [facility] Yen HERNANDEZ [facility]11 Social History Tobacco Use Types [...] 01/01/2026 1:00 PM EDT Office Visit [facility] [address] [facility] [place] [place] [address] Timothy Bourgeois [address] [facility] [address] [place], [place] [phone] documented as of this encounter Visit Diagnoses Not on filedocumented in this encounter Care Teams Television Script Writer Relationship Specialty Start Date End Date Jeri Eller PA [address] [facility] [place] [address] PCP - Medical [place] [employer] 06/19/22 07/19/99 documented as of this encounter
--- OUTSIDE RECORDS SUMMARY | 2025-02-02 13:14 | XMS_ITS | Clinical Summary ---
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
--- OUTSIDE RECORDS SUMMARY | 2025-02-02 13:14 | XMS_ITS | Encounter Summary ---
Author Organization [facility] Address [address] [place] [address] Care Team Providers Care Furnace Tender Name Role Phone Jeri Eller Unavailable Encounter Details Date Type Department Care Team (Late st Contact Info) Description 09/01/2023 Abstract [facility] [address] [place] [address] Joyce Guaman LPN 102 [employer] [facility] Yen HERNANDEZ [facility] Social History [...] 01/01/2026 1:00 PM EDT Office Visit [facility] [address] [place] [address] Timothy Bourgeois [address] [facility] [address] [place], [place] [phone] documented as of this encounter Visit Diagnoses Not on filedocumented in this encounter Care Teams Furnace Tender Relationship Specialty Start Date End Date Jeri Eller PA [address] [facility] [place] [address] PCP - Medical [place] [employer] 06/19/22 07/19/99 documented as of this encounter
--- OUTSIDE RECORDS SUMMARY | 2025-02-02 13:14 | XMS_ITS | Encounter Summary ---
Author Organization [employer] Address [id number] [address] [place] [address] Care Team Providers Care Sand Sifter Name Role Phone Carlos A Moreno DO Primary Care Provider [phone] Encounter Details Date Type Department Care Team (Late st Contact Info) Description 11/28/2019 Telephone [facility] [address] [address] Yari Calabrese MA Social History [...] documented as of this encounter Care Teams Sand Sifter Relationship Specialty Start Date End Date Carlos A Moreno DO [address] [place] [address] PCP - General Internal Medicine 07/15/24 documented as of this encounter
--- OUTSIDE RECORDS SUMMARY | 2025-02-02 13:14 | XMS_ITS | Encounter Summary ---
Author Organization [facility] Address [id number] [address] [place] [address] Care Team Providers Care Grader Operator Name Role Phone Carlos A Moreno DO Primary Care Provider [phone] Encounter Details Date Type Department Care Team (Late st Contact Info) Description 07/05/2020 Telephone [facility] [address] [facility] [address] [place] [address] Jeri Goodwin CMA Social History [...] declined 05/01/2020 How often do you attend jainism or restoration serv ices? Patient declined 05/01/2020 Do you belong to any clubs o r organizations such as jainism groups, unions, fraternal or athletic groups, or [...] Answer Date Recorded Total Score 0 05/01/2020 [facility] of Occupat ional [facility] - Occupational Stress Questionnaire Answer [...] needed for daily living? Patient declined 05/01/2020 [place] Depression Scale Answer Date Recorded [place] Depression Scale Total 6 05/02/2020 The thought of harming myself has occurred to me . Never 05/02/2020 Childcare Answer Date Recorded Do problems getting child ca re make it difficult for you to work or study? No 05/01/2020 Employment Answer Date Recorded Do you need help finding a PT [employer] career center and/or a training program? No [...] documented as of this encounter Care Teams Grader Operator Relationship Specialty Start Date End Date Carlos A Moreno DO [address] [place] [address] PCP - General Internal Medicine 07/15/24 documented as of this encounter
--- OUTSIDE RECORDS SUMMARY | 2025-02-02 13:14 | XMS_ITS | Encounter Summary ---
Author Organization [facility] Address [address] [place] [address] Care Team Providers Care Lumber Sorter Name Role Phone Jeri Eller Unavailable Encounter Details Date Type Department Care Team (Late st Contact Info) Description 10/11/2024 Abstract [facility] [address] [facility] [facility] [place] [address] Timothy Bourgeois [facility] [place] [id number] Social History Tobacco Use Types Packs/Day Years [...] 01/01/2026 1:00 PM EDT Office Visit [facility] OB [address] [place] [address] Timothy Bourgeois DO [facility] [place] [address] documented as of this encounter Visit Diagnoses Not on filedocumented in this encounter Care Teams Lumber Sorter Relationship Specialty Start Date End Date Jeri Eller PA [address] [facility] [place] [address] PCP - Medical [place] Commercial 06/19/22 07/19/99 documented as of this encounter
--- OUTSIDE RECORDS SUMMARY | 2025-02-02 13:14 | XMS_ITS | Encounter Summary ---
Author Organization [facility] Address [address] [place] [address] Care Team Providers Care Electrical Assembly Technician Name Role Phone Daphnie Jeri GARRETT Unavailable Encounter Details Date Type Department Care Team (Late st Contact Info) Description 06/23/2023 Clinisync Result Encounter [facility] External Department Unsolicited Janki Bourgeois, DO [address] [place] [address] Social History Tobacco Use Types Packs/Day [...] 01/01/2026 1:00 PM EDT Office Visit [facility] OB [address] [place] [id number] Janki Bourgeois, [address] [place] [address] documented as of this encounter Procedures Procedure Name Priority Date/Time Associated Diagnosis Comments US OB ANATOMY 06/23/2023 10:37 PM EST AFP, SERUM, OPEN SPINA BIFIDA Routine 06/23/2023 4:30 PM EST documented in this encounter Results * US OB ANATOMY (06/23/2023 10:37 PM EST) Anatomical Region Laterality Modality Other 06/23/2023 10:3 7 PM EST Narrative 06/23/2023 10:39 [place] [address] Ultrasound Report Signed Patient: JODI BOSTON MR#: [id number] : 1995 Acct:[id number] Age/Sex: 28 / F ADM Date: 06/23/23 Loc: US Attending Dr: Janki Bourgeois D.O. Ordering Physician: Janki Bourgeois D.O. Date of Service: 06/23/23 Procedure(s): US OB anatomy Accession Number(s): [id number] cc: Janki Bourgeois D.O.; Physician,Non-Staff M.DJoi The [address] [address] Patient Name: JODI BOSTON MRN: [facility]:[id number] date: 1995 Sex: F Assigned Patient Location: US Current Patient Location: US Accession/Order Number: [id number] Exam Date: 06/23/2023 17:00 Report Date: 06/23/2023 [...] M.D. Signed By: 06/23/232238 DD/ 36 TD/TT: Talent Acquisition Sourcer: Procedure Note Radiology, Radiologist, MD - 06/24/2023 [place] [address] Ultrasound Report Signed Patient: JODI BOSTONMR#: [id number] : 1995Acct:[id number] Age/Sex: Date: 06/23/23 Loc: US Attending Dr: Janki Bourgeois D.O. Ordering Physician: Janki Bourgeois D.O. Date of Service: 06/23/23 Procedure(s): US OB anatomy Accession Number(s): [id number] cc: Janki Bourgeois D.O.; Physician,Non-Staff [place] The [address] [address] Patient Name: JODI BOSTON MRN: [facility]:[id number] date: 1995 Sex: F Assigned Patient Location: US Current Patient Location: Accession/Order Number: [id number] Exam Date: 06/23/2023 17:00 Report Date: 06/23/2023 [...] Flores M.D. Signed By:06/23/232238 DD/ 36 TD/TT: Talent Acquisition Sourcer: us Janki Bourgeois DO [facility] Final Result * AFP, SERUM, OPEN SPINA BIFIDA (06/23/2023 4:30 PM EST) Pathologist [facility] RESULTS Report . [facility] TEST RESULTS: *Screen Negative* . [facility] GEST. AGE ON COLLECTION DATE 20.0 . weeks [facility] GESTAT. AGE BASED ON As provided . [facility] Comment: Recalculations are not recommended when gestational dating by LMP and ultrasound are within 10 days. [age] [facility] RACE . [facility] WEIGHT 159 . lbs [facility] INSULIN DEP DIABETES No . [facility] MULTIPLE GESTATION No . [facility] AFP VALUE 44.7 . ng/mL [facility] AFP MOM 0.81 . [facility] [place] [address] [place] [address] . [facility] INTERPRETATION Comment . [facility] Comment: Interpretation: Screen Negative This result [...] Customer Services to discuss available options. The [employer] recommends amniocentesis be offered to women age 35 and older. COMMENT: Comment . [facility] Comment: Kari Valencia, Ph.D., [facility] Director References: Available Upon Request. Multiples Of Median Cutoffs For AFP Elevations Gonsalez 2.5 Black 2.8 IDD 2.0 Twins 4.5 Abbreviation Definitions IDD - Insulin Dep Diabetes OSBR - Open Spina Bifida Risk For further inquiries contact [employer] at [phone]. This test was developed and its performance characteristics determined by [employer]. It has not been cleared or approved by the Food and Drug Administration. Performed at: [facility] [address] [facility], [place], [place] [id number] Yardage Control Operator Forming: Gigi Walsh [facility], Phone: [phone] 06/23/2023 4:30 PM EST 06/23/2023 4:31 PM EST Narrative [facility] - 06/26/2023 2:07 AM EST [id number] N 1 Y 159 White/ us Janki Christelle DO LAB BLOOD ORDERABLES Final Resul t [facility] documented in this encounter Visit Diagnoses Not on filedocumented in this encounter Care Teams Electrical Assembly Technician Relationship Specialty Start Date End Date Jeri Eller PA [address] [facility] [address] [place] [id number] PCP - Medical [facility] Commercial 06/19/22 07/19/99 documented as of this encounter
--- OUTSIDE RECORDS SUMMARY | 2025-02-02 13:14 | XMS_ITS | Encounter Summary ---
Author Organization [facility] Address [address] [place] [address] Care Team Providers Care Industrial Automation Engineer Name Role Phone Jeri Eller GERRY Unavailable Encounter Details Date Type Department Care Team (Late st Contact Info) Description 01/04/2025 Orders Only [facility] OB [address] [place] [address] Vickie Corbin MA [address] [place] [address] [place] [address] Social History Tobacco Use Types Packs/Day Years [...] EDT Office Visit [facility] [address] [facility] [place] [address] Timothy Bourgeois DO [address] [place], [place] [id number] documented as of this encounter Procedures Procedure Name Priority Date/Time Associated Diagnosis Comments PAP SMEAR Routine 12/26/2024 12:00 AM EDT documented in this encounter Results * Pap Smear (12/26/2024 12:00 AM EDT) Swab Cervical swab / Unknown us Timothy Bourgeois DO LAB CYTOLOGY ORDERABLES Final Re sult EXTERNAL LAB documented in this encounter Visit Diagnoses Not on filedocumented in this encounter Care Teams Industrial Automation Engineer Relationship Specialty Start Date End Date Jeri Eller PA [address] [facility] [address] [place] [id number] PCP - Medical [place] Commercial 06/19/22 07/19/99 documented as of this encounter
[2025-02-02 13:15] VITALS: BP 116/80; PULSE 88; TEMP 37.1; O2SAT 99; BMI 24.0
--- OUTSIDE RECORDS SUMMARY | 2025-02-02 13:15 | XMS_ITS | Encounter Summary ---
Author Organization [facility] Address [address] [facility] [place] [address] Care Team Providers Care Instructional Technology Facilitator Name Role Phone Jeri Eller Unavailable Encounter Details Date Type Department Care Team (Late st Contact Info) Description 11/03/2023 Abstract [facility] OB [address] [place] [address] Yris Charlton LPN Social History Tobacco [...] 01/01/2026 1:00 PM EDT Office Visit [facility] OB [address] [place] [address] Timothy Bourgeois DO [address] [place], [place] [id number] documented as of this encounter Visit Diagnoses Not on filedocumented in this encounter Care Teams Instructional Technology Facilitator Relationship Specialty Start Date End Date Jeri Eller PA [address] [place], [place] [phone] PCP - Medical [place] Commercial 06/19/22 07/19/99 documented as of this encounter
--- OUTSIDE RECORDS SUMMARY | 2025-02-02 13:15 | XMS_ITS | Encounter Summary ---
Author Organization [employer] Address [id number] [address] [place] [address] Care Team Providers Care Gut Snatcher Name Role Phone Carlos A Moreno DO Primary Care Provider [phone] Encounter Details Date Type Department Care Team (Late st Contact Info) Description 07/06/2020 Telephone [facility] [address] [facility] [address] [place] [address] Alisson Powell LPN Social History [...] declined 05/01/2020 How often do you attend adventist or jain serv ices? Patient declined 05/01/2020 Do you belong to any clubs o r organizations such as adventist groups, unions, fraternal or athletic groups, or [...] Answer Date Recorded Total Score 0 05/01/2020 [facility] - Occupational Stress Questionnaire Answer Date [...] needed for daily living? Patient declined 05/01/2020 [place] Depression Scale Answer Date Recorded [place] Depression Scale Total 6 05/02/2020 The thought of harming myself has occurred to me . Never 05/02/2020 Childcare Answer Date Recorded Do problems getting child ca re make it difficult for you to work or study? No 05/01/2020 Employment Answer Date Recorded Do you need help finding a [employer] career center and/or a training program? 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 She stated that her mom is her boss, but did ask us to fax over a light duty form to [employer]ukhwinder [employer]oba f: [phone]. She did ask her mom for help at home with her baby. She is asking if the percocet can be sent electronically as she livesabout an hour away, doesn't want to take the baby out in the cold, and isn't sure if someone else can pickling grader the script by 4:15pm today. Alisson Powell [...] documented as of this encounter Care Teams Gut Snatcher Relationship Specialty Start Date End Date Carlos A Moreno DO [address] [place] [id number] PCP - General Internal Medicine 07/15/24 documented as of this encounter
--- OUTSIDE RECORDS SUMMARY | 2025-02-02 13:15 | XMS_ITS | Encounter Summary ---
Author Organization [facility] Address [address] [place] [address] Care Team Providers Care Grease Man Name Role Phone Jeri Eller Unavailable Encounter Details Date Type Department Care Team (Late st Contact Info) Description 09/28/2023 Abstract [facility] OB [address] [facility] [place] [address] Joyce Guaman LPN [address] [facility] Social History Tobacco Use Types Packs/Day [...] 01/01/2026 1:00 PM EDT Office Visit [facility] [address] [facility] [place] [address] Timothy Bourgeois [address] [facility] [address] [place], [place] [address] documented as of this encounter Visit Diagnoses Not on filedocumented in this encounter Care Teams Grease Man Relationship Specialty Start Date End Date Jeri Eller PA [address] [facility] [place] [address] PCP - Medical [place] Commercial 06/19/22 07/19/99 documented as of this encounter
--- OUTSIDE RECORDS SUMMARY | 2025-02-02 13:15 | XMS_ITS | Encounter Summary ---
Author Organization [facility] Address [address] [place] [address] Care Team Providers Care Print Line Operator Name Role Phone Jeri Eller Unavailable Encounter Details Date Type Department Care Team (Late st Contact Info) Description 02/09/2024 Abstract [facility] OB [address] [place] [address] Timothy Bourgeois [facility] [place] [id number] Social History Tobacco Use Types Packs/Day Years [...] 01/01/2026 1:00 PM EDT Office Visit [facility] OB [address] [place] [address] Timothy Bourgeois DO [facility] [place] [address] documented as of this encounter Visit Diagnoses Not on filedocumented in this encounter Care Teams Print Line Operator Relationship Specialty Start Date End Date Jeri Eller PA [address] [facility] [place] [address] PCP - Medical [place] Commercial 06/19/22 07/19/99 documented as of this encounter
--- OUTSIDE RECORDS SUMMARY | 2025-02-02 13:15 | XMS_ITS | Encounter Summary ---
Author Organization [facility] Address [address] [place] [address] Care Team Providers Care Hand Zipper Trimmer Name Role Phone DaphnieJeri Unavailable Encounter Details Date Type Department Care Team (Late st Contact Info) Description 09/21/2023 Clinisync Result Encounter [facility] External Department Unsolicited Janki Bourgeois, [address] [place], [place] [address] Social History Tobacco Use Types Packs/Day Years [...] EDT Office Visit [facility] OB [address] [facility] [place] [address] Janki Bourgeois DO [facility] [address] [place], [place] [address] documented as of this encounter Procedures Procedure Name Priority Date/Time Associated Diagnosis Comments US OB GROWTH 09/21/2023 7:16 AM EST documented in this encounter Results * US OB GROWTH (09/21/2023 7:16 AM EST) Anatomical Region Laterality Modality Other 09/21/2023 7:16 AM EST Narrative 09/21/2023 7:19 [place] [address] Ultrasound Report Signed Patient: JODI BOSTON MR#: [id number] : 1995 Acct:[id number] Age/Sex: 28 / F ADM Date: 09/19/23 Loc: US Attending Dr: Janki Bourgeois D.O. Ordering Physician: Janki Bourgeois D.O. Date of Service: 09/19/23 Procedure(s): US OB growth Accession Number(s): [id number] cc: Janki Bourgeois D.O.; Physician,Non-Staff [place] The [place] [address] Patient Name: JODI BOSTON MRN: [id number] date: 1995 Sex: F Assigned Patient Location: Current Patient Location: Accession/Order Number: [id number] Exam Date: 09/19/2023 11:05 Report Date: 09/21/2023 [...] M.D. Signed By: 09/21/23718 DD/ 5 TD/TT: Fleet Salesperson: Procedure Note Radiology, Radiologist, MD - 09/22/2023 [place] [address] Ultrasound Report Signed Patient: JODI BOSTON AMR#: [id number] : 1995Acct:[id number] Age/Sex: 28 / FADM Date: 09/19/23 Loc: US Attending Dr: Janki Bourgeois D.O. Ordering Physician: Janki Bourgeois D.O. Date of Service: 09/19/23 Procedure(s): US OB growth Accession Number(s): [id number] cc: Janki Bourgeois D.O.; Physician,Non-Staff [place] The [place] [address] Patient Name: JODI BOSTON MRN: [id number] date: 1995 Sex: F Assigned Patient Location: US Current Patient Location: Accession/Order Number: [id number] Exam Date: 09/19/2023 11:05 Report Date: 09/21/2023 [...] Carr M.D. Signed By:09/21/23718 DD/ 5 TD/TT: Fleet Salesperson: us Janki Christelle DO [facility] Final Result documented in this encounter Visit Diagnoses Not on filedocumented in this encounter Care Teams Hand Zipper Trimmer Relationship Specialty Start Date End Date Jeri Eller PA [address] [place] [address] [place] [address] PCP - Medical [place] Commercial 06/19/22 07/19/99 documented as of this encounter
--- OUTSIDE RECORDS SUMMARY | 2025-02-02 13:15 | XMS_ITS | Encounter Summary ---
Author Organization [facility] Address [id number] [address] [place] [address] Care Team Providers Care Language Teacher Name Role Phone Carlos A Moreno DO Primary Care Provider [phone] Encounter Details Date Type Department Care Team (Late st Contact Info) Description 07/06/2020 Orders Only [facility] [address] [place] [address] [address] [place] [address] [place] [address] [place] [address], [address] [place], [place] [id number] Postoperative pain (Primary Dx) Social History Tobacco [...] declined 05/01/2020 How often do you attend temple or moravian serv ices? Patient declined 05/01/2020 Do you belong to any clubs o r organizations such as temple groups, unions, fraternal or athletic groups, or [...] Answer Date Recorded Total Score 0 05/01/2020 [facility] Occupat ional Health - Occupational Stress [...] needed for daily living? Patient declined 05/01/2020 [place] Depression Scale Answer Date Recorded [place] Depression Scale Total 6 05/02/2020 The thought of harming myself has occurred to me . Never 05/02/2020 Childcare Answer Date Recorded Do problems getting child ca re make it difficult for you to work or study? No 05/01/2020 Employment Answer Date Recorded Do you need help finding a [employer] career center and/or a training program? [...] documented as of this encounter Care Teams Language Teacher Relationship Specialty Start Date End Date Carlos A Moreno DO [address] [place] [address] PCP - General Internal Medicine 07/15/24 documented as of this encounter
--- OUTSIDE RECORDS SUMMARY | 2025-02-02 13:15 | XMS_ITS | Encounter Summary ---
Author Organization [facility] Address [address] [place] [address] Care Team Providers Care Broke Handler Name Role Phone DaphnieJeri Unavailable Encounter Details Date Type Department Care Team (Late st Contact Info) Description 10/30/2023 Clinisync Result Encounter [facility] External Department Unsolicited Janki Bourgeois, [address] [place], [place] [phone] Social History Tobacco Use Types Packs/Day Years [...] [facility] OB [address] [place] [address] Janki Bourgeois DO [facility] [address] [place], [place] [address] documented as of this encounter Procedures Procedure Name Priority Date/Time Associated Diagnosis Comments US OB BPP W NON-STRESS 10/30/2023 3:17 PM EDT documented in this encounter Results * US OB BPP W NON-STRESS (10/30/2023 3:17 PM EDT) Anatomical Region Laterality Modality Other 10/30/2023 3:17 PM EDT Narrative 10/30/2023 3:20 [place] [address] Ultrasound Report Signed Patient: JODI BOSTON MR#: [id number] : 1995 Acct:[id number] Age/Sex: 28 / F ADM Date: 10/30/23 Loc: [facility] 250-[address]: Janki Bourgeois D.O. Ordering Physician: Janki Bourgeois D.O. Date of Service: 10/30/23 Procedure(s): US OB BPP w non-stress Accession Number(s): [id number] cc: Janki Bourgeois D.O.; Physician,Non-Staff [place] [id number] Patient Name: JODI BOSTON MRN: [id number] date: 1995 Sex: F Assigned Patient Location: [facility] Current Patient Location: [facility] Accession/Order Number: [id number] Exam Date: 10/30/2023 14:02 Report Date: 10/30/2023 [...] Signed By: 10/30/23 152 DD/ 16 TD/TT: Optical Manager: Procedure Note Radiology, Radiologist, MD - 10/30/2023 [place] [address] Ultrasound Report Signed Patient: JODI BOSTON AMR#: [id number] : 1995Acct:[id number] Age/Sex: 28 / FADM Date: 10/30/23 Loc: [facility] 250-[address]: Janki Bourgeois D.O. Ordering Physician: Jnaki Bourgeois D.O. Date of Service: 10/30/23 Procedure(s): US OB BPP w non-stress Accession Number(s): [id number] cc: Janki Bourgeois D.O.; Physician,Non-Staff [place] The [place] [address] Patient Name: JODI BOSTON MRN: [facility]:[id number] date: 1995 Sex: F Assigned Patient Location: [facility] Current Patient Location: [facility] Accession/Order Number: [id number] Exam Date: 10/30/2023 14:02 Report Date: 10/30/2023 [...] Flores M.D. Signed By:10/30/231519 DD/ 16 TD/TT: Optical Manager: us Janki Christelle DO [facility] Final Result documented in this encounter Visit Diagnoses Not on filedocumented in this encounter Care Teams Broke Handler Relationship Specialty Start Date End Date Jeri Eller PA [address] [facility] [address] PCP - Medical [place] Commercial 06/19/22 07/19/99 documented as of this encounter
--- OUTSIDE RECORDS SUMMARY | 2025-02-02 13:15 | XMS_ITS | Encounter Summary ---
Author Organization [facility] Address [address] [place] [address] Care Team Providers Care Journalist Name Role Phone Daphnie Jeri GARRETT Unavailable Encounter Details Date Type Department Care Team (Late st Contact Info) Description 10/20/2023 Clinisync Result Encounter [facility] External Department Unsolicited Janki Bourgeois, [address] [place], [place] [address] Social History Tobacco Use Types Packs/Day Years [...] Visit [facility] OB [address] [place] [address] Janki Bourgeois DO [facility] [address] [place], [place] [address] documented as of this encounter Procedures Procedure Name Priority Date/Time Associated Diagnosis Comments US OB GROWTH 10/20/2023 4:14 PM EDT documented in this encounter Results * US OB GROWTH (10/20/2023 4:14 PM EDT) Anatomical Region Laterality Modality Other 10/20/2023 4:14 PM EDT Narrative 10/20/2023 4:17 PM EDT [address] [address] Ultrasound Report Signed Patient: JODI BOSTON MR#: [id number] : 1995 Acct:[id number] Age/Sex: 28 / F ADM Date: 10/20/23 Loc: [facility] Attending Dr: Janki Bourgeois D.O. Ordering Physician: Janki Bourgeois D.O. Date of Service: 10/20/23 Procedure(s): US OB growth Accession Number(s): [id number] cc: Janki Bourgeois D.O.; Physician,Non-Staff [place] The [place] [id number] Patient Name: JODI BOSTON MRN: [id number] date: 1995 Sex: F Assigned Patient Location: [facility] Current Patient Location: [facility] Accession/Order Number: [id number] Exam Date: 10/20/2023 08:40 Report Date: 10/20/2023 [...] M.D. Signed By: 10/20/231616 DD/ 13 TD/TT: Retail Pharmacy Technician: Procedure Note Radiology, Radiologist, MD - 10/21/2023 [place] [address] Ultrasound Report Signed Patient: JODI BOSTON AMR#: [id number] : 1995Acct:[id number] Age/Sex: 28 / FADM Date: 10/20/23 Loc: [facility] Attending Dr: Janki Bourgeois D.O. Ordering Physician: Janki Bourgeois D.O. Date of Service: 10/20/23 Procedure(s): US OB growth Accession Number(s): [id number] cc: Janki Bourgeois D.O.; Physician,Non-Staff [place] [facility] [place] [id number] Patient Name: JODI BOSTON MRN: [id number] date: 1995 Sex: F Assigned Patient Location: [facility] Current Patient Location: [facility] Accession/Order Number: [id number] Exam Date: 10/20/2023 08:40 Report Date: 10/20/2023 [...] Flores M.D. Signed By:10/20/231616 DD/ 13 TD/TT: Retail Pharmacy Technician: us Janki Christelle DO [facility] Final Result documented in this encounter Visit Diagnoses Not on filedocumented in this encounter Care Teams Journalist Relationship Specialty Start Date End Date Jeri Eller PA [address] [place] [address] [place] [address] PCP - Medical [place] Commercial 06/19/22 07/19/99 documented as of this encounter
--- OUTSIDE RECORDS SUMMARY | 2025-02-02 13:15 | XMS_ITS | Encounter Summary ---
Author Organization [facility] Address [address] [place] [address] Care Team Providers Care Canary Raiser Name Role Phone DaphnieJeri Unavailable Encounter Details Date Type Department Care Team (Late st Contact Info) Description 03/30/2024 Clinisync Result Encounter [facility] External Department Unsolicited Janki Bourgeois, DO [address] [place], [place] [id number] Social History Tobacco Use Types Packs/Day Years [...] Visit [facility] [address] [place] [id number] Janki Bourgeois DO [address] [place], [place] [phone] documented as of this encounter Procedures Procedure Name Priority Date/Time Associated Diagnosis Comments US PELVIS W/ TRANSVAGINAL 03/30/2024 4:24 PM EDT documented in this encounter Results * US PELVIS W/ TRANSVAGINAL (03/30/2024 4:24 PM EDT) Anatomical Region Laterality Modality Other 03/30/2024 4:24 PM EDT Narrative 03/30/2024 4:27 [place] [address] Ultrasound Report Signed Patient: JODI BOSTON MR#: [id number] : 1995 Acct:[id number] Age/Sex: 29 / F ADM Date: 03/29/24 Loc: [facility] Attending Dr: Janki Bourgeois D.O. Ordering Physician: Janki Bourgeois D.O. Date of Service: 03/29/24 Procedure(s): US pelvis w/ transvaginal Accession Number(s): [id number] cc: Janki Bourgeois D.O.; Physician,Non-Staff M.Malorie [facility] [place] [id number] Patient Name: JODI BOSTON MRN: [id number] date: 1995 Sex: F Assigned Patient Location: [facility] Current Patient Location: Accession/Order Number: [id number] Exam Date: 03/29/2024 14:39 Report Date: 03/30/2024 [...] M.D. Signed By: 03/30/241626 DD/ 23 TD/TT: Boiler Tender: Procedure Note Radiology, Radiologist, MD - 03/31/2024 [place] [address] Ultrasound Report Signed Patient: JODI BOSTON AMR#: [id number] : 1995Acct:[id number] Age/Sex: 29 / FADM Date: 03/29/24 Loc: [facility] Attending Dr: Janki Bourgeois D.O. Ordering Physician: Janki Bourgeois D.O. Date of Service: 03/29/24 Procedure(s): US pelvis w/ transvaginal Accession Number(s): [id number] cc: Janki Bourgeois D.O.; Physician,Non-Staff Candelaria [facility] [place] [id number] Patient Name: JODI BOSTON MRN: [id number] date: 1995 Sex: F Assigned Patient Location: [facility] Current Patient Location: Accession/Order Number: [id number] Exam Date: 03/29/2024 14:39 Report Date: 03/30/2024 [...] M.D. Signed By:03/30/24 1627 DD/ 1624 TD/TT: Boiler Tender: us Janki Christelle DO [facility] Final Result documented in this encounter Visit Diagnoses Not on filedocumented in this encounter Care Teams Canary Raiser Relationship Specialty Start Date End Date Jeri Eller PA [address] [place] [address] Dr [address] [place] [id number] PCP - Medical [place] [employer] 06/19/22 07/19/99 documented as of this encounter
--- OUTSIDE RECORDS SUMMARY | 2025-02-02 13:15 | XMS_ITS | Encounter Summary ---
Author Organization [facility] tem Address [id number] [address] [place] [address] Care Team Providers Care Rig Hand Name Role Phone Carlos A Moreno DO Primary Care Provider [phone] Encounter Details Date Type Department Care Team (Late st Contact Info) Description 09/26/2024 Orders Only [facility] Internal Medicine - Family Medicine [address] [place] [address] Carlos A Moreno DO [address] [place] [address] Wilfred thyroiditis (Primary Dx) Social History Tobacco [...] declined 05/01/2020 How often do you attend bahai or scientologist serv ices? Patient declined 05/01/2020 Do you belong to any clubs o r organizations such as bahai groups, unions, fraternal or athletic groups, or [...] Answer Date Recorded Total Score 6 07/18/2024 [facility] - Occupational Stress [...] needed for daily living? Patient declined 08/24/2024 [place] Depression Scale Answer Date Recorded [place] Depression Scale Total 6 05/02/2020 The thought [...] Recorded Do you need help finding a [facility] and/or a training program? [...] - 1.60 ng/dL 09/27/2024 6:59 PM EDT [facility] Blood (PLASMA) 09/27/2024 1: 35 PM EDT 09/27/2024 1:36 PM EDT us Carlos A [facility] BLOOD ORDERABLES Final Resul t Performing Organization Address [facility] Co de Phone Number [facility] [address] [place] [phone] * TSH (09/27/2024 1:35 PM EDT) TSH 2.01 0.49 - 4.67 uIU/mL 09/27/2024 6:57 PM EDT [facility] Blood (PLASMA) 09/27/2024 1: 35 PM EDT 09/27/2024 1:36 PM EDT Carlos A [facility] BLOOD ORDERABLES Final Resul t Performing Organization Address [facility] Co de Phone Number [facility] [address] [place] [address], [address] [address] documented in this encounter Visit Diagnoses Diagnosis Wilfred thyroiditis- Primary Chronic lymphocytic thyroiditis documented in this encounter Additional Health Concerns Assessment Noted Time PHQ-9 Depression Total Score: 6 07/18/20 24 2:57 PM EST A Body Mass Index follow-up plan has been documented for the patient 02/21/2022 9:54 AM EDT documented as of this encounter Care Teams Rig Hand Relationship Specialty Start Date End Date Carlos A Moreno DO [address] [place] [address] PCP - General Internal Medicine 07/15/24 documented as of this encounter
[2025-02-02 13:20] VITALS: BP 116/80; BP 119/80; BP 130/81; PULSE 72; PULSE 78; PULSE 88
--- NOTE | 2025-02-02 13:23 | XR_ITS ---
[place] [id number] Patient Name: JODI BURNHAM MRN: [id number] date: 1995 Sex: F Assigned Patient Location: ER Current Patient Location: ED.MAIN Accession/Order Number: [id number] Exam Date: 02/02/2025 13:54 Report Date: 02/02/2025 13:55 At the request of: TUNG ESCAMILLA MD Procedure: XR chest 1V Plain film chest Single view HISTORY: Shortness of breath. Chest pain COMPARISON: None FINDINGS: SUPPORT DEVICES: None POSTSURGICAL CHANGES: None HEART: Within normal limits PULMONARY PATRICIA: Within normal limits MEDIASTINUM: Unremarkable LUNGS AND PLEURA: No acute lung process, pleural effusion or pneumothorax identified. BONY STRUCTURES: Intact ADDITIONAL FINDINGS None XR/XR chest 1V IMPRESSION: No acute process. Impression dictated by: David Ortiz M.D. 02/02/2025 1:55 PM Dictation Location: [place] [address] Electronically authenticated by: [id number] Y Date: 02/02/2025 13:55
--- NOTE | 2025-02-02 13:24 | ECG_ITS ---
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
--- NOTE | 2025-02-02 13:25 | ED.GENADUL1 ---
HPI HPI - General Adult General Chief complaint: Anxiety Stated complaint: ANXIETY Time Seen by Provider: 02/02/25 13:04 Source: patient Mode of arrival: ambulance History of Present Illness HPI narrative: 29-year-old female presents because she had shortness of breath and her chest was hurting and her left arm went numb. She was shopping at a store when it happened. There is no injury. She has been under a lot of stress recently. She was recently treated for some back issues with prednisone and some pain medication. No fever or cough. Related Data Home Medications ?Medication ?Instructions ?Recorded ?Confirmed baclofen 10 mg tablet 5 mg PO DAILY 02/02/25 02/02/25 cetirizine 10 mg tablet (24Hour 10 mg PO DAILY PRN allergy symptoms 02/02/25 02/02/25 Allergy) citalopram 20 mg tablet mg 02/02/25 Previous Rx's ?Medication ?Instructions ?Recorded hydrocodone 5 mg-acetaminophen 325 1 tab PO Q6H PRN pain #7 tabs 01/29/25 mg tablet methylprednisolone 4 mg tablets in 4 mg PO QID 4 doses #21 ea 01/29/25 a dose pack (Medrol (Michael)) Allergies Allergy/AdvReac Type Severity Reaction Status Date / Time latex Allergy Rash Verified 02/02/25 13:12 prochlorperazine (From Allergy psychosis Verified 02/02/25 13:12 Compazine) Opioid HPI Opioid Management Most Recent Opioid Data: Last Pain Scale 1 01/29/25, 20:36 Last ED Pain Assessment 01/29/25, 19:07 Last MAR Pain Assessment 01/29/25, 18:41 Ur Phencyclidine Scrn, (NEGATIVE) Negative 11/03/23, 05:15 Review of Systems ROS Narrative A ten point review of systems is negative except as noted above. [facility] History (Updated 02/02/25 @ 14:01 by Wes Muller MD) Rhinitis ?J31.0 - Chronic rhinitis (ICD-10) ADHD ?F90.9 - Attention-deficit hyperactivity disorder, unspecified type (ICD-10) Anxiety ?F41.9 - Anxiety disorder, unspecified (ICD-10) Anemia ?D64.9 - Anemia, unspecified (ICD-10) Surgical History (Updated 11/03/23 @ 06:40 by Antonina Eduardo) H/O hemorrhoidectomy ?Z98.890 - Other specified postprocedural states (ICD-10) [place] teeth removed ?K08.409 - Partial loss of teeth, unspecified cause, unspecified class (ICD-10) Family History (Updated 11/03/23 @ 06:47 by Antonina Eduardo) Grandmother Family history of cancer Family history of diabetes mellitus Grandfather Family history of cancer Family history of hypertension Family history of stroke Aunt Family history of stroke Social History (Updated 11/03/23 @ 06:48 by Antonina Eduardo) Within the past year, how often did you have a drink containing alcohol: never Score interpretation: A score less than 3 is consistent with normal alcohol consumption. Smoking status: Former smoker Non-prescribed substance use: former substance user Non-prescribed substance use details: Medical marijuana Highest level of school completed/degree received: some college, no degree Little interest or pleasure in doing things: not at all Feeling down, depressed, or hopeless: several days Feel stressed/tense/nervous/anxious/difficulty sleeping: not at all Do you think of yourself as: straight/heterosexual Gender Identity: female Exam Narrative Exam Narrative: Nurses note and vital signs reviewed and patient is not hypoxic. General: The patient appears well and in no apparent distress. Patient is resting comfortably on cart. Skin: Warm, dry, no pallor noted. There is no rash noted. Head: Normocephalic, atraumatic Eye: Normal conjunctiva, no drainage Ears, Nose, Mouth, and Throat: oral mucosa is moist. Nares patent. Cardiovascular: Regular Rate and Rhythm Respiratory: Patient is in no distress, no accessory muscle use, lungs are clear to auscultation, no wheezing, rales or rhonchi Back: non-tender GI: Soft and nontender Musculoskeletal: The patient has no evidence of calf tenderness, no pitting edema, symmetrical pulses noted bilaterally Neurological: A&O, normal speech Psychiatric: Cooperative, soft-spoken Constitutional Vital Signs, click to edit/add: Last Vital Signs Temp 98.8 F 02/02/25 13:15 Pulse 88 02/02/25 13:20 Resp 16 02/02/25 13:15 BP 116/80 02/02/25 13:20 Pulse Ox 99 02/02/25 13:15 O2 Del Method Room Air 02/02/25 13:15 Course Vital Signs Vital signs: Vital Signs Temperature 98.8 F 02/02/25 13:15 Pulse Rate 88 02/02/25 13:15 Respiratory Rate 16 02/02/25 13:15 Blood Pressure 116/80 02/02/25 13:15 Pulse Oximetry 99 02/02/25 13:15 Oxygen Delivery Method Room Air 02/02/25 13:15 Temperature 98.8 F 02/02/25 13:15 Pulse Rate 88 02/02/25 13:20 Respiratory Rate 16 02/02/25 13:15 Blood Pressure 116/80 02/02/25 13:20 Pulse Oximetry 99 02/02/25 13:15 Oxygen Delivery Method Room Air 02/02/25 13:15 Medical Decision Making MDM Narrative Medical decision making narrative: EKG and chest x-ray are normal. She was reassured. My clinical impression is that her symptoms are due to anxiety. Treatment diagnosis and follow-up were discussed with the patient. Differential Diagnosis Differential Diagnosis: Myocardial infarction, pneumothorax, chest wall pain, anxiety Imaging Data Chest x-ray: Radiologist's impression: ITS Impressions Chest X-Ray 02/02/25 13:23 IMPRESSION: No acute process. Impression dictated by: David Ortiz M.D. 02/02/2025 1:55 PM Dictation Location: [place] [address] Electronically authenticated by: [id number] Y Date: 02/02/2025 13:55 ECG Data Attestation: I personally reviewed and interpreted this ECG as follows: (EKG on my interpretation shows normal sinus rhythm with rate of 71 and no acute change) Discharge Plan Discharge Chief Complaint: Anxiety Clinical Impression: Acute anxiety Patient Disposition: Home, Self-Care Time of Disposition Decision: 14:01 Condition: Good Mode of Transportation: Private Vehicle Prescriptions / Home Meds: No Action methylprednisolone [Medrol (Michael)] 4 mg tablets,dose pack 4 mg PO QID Qty: 21 0RF hydrocodone-acetaminophen 5-325 mg tablet 1 tab PO Q6H PRN (Reason: pain) Qty: 7 0RF citalopram 20 mg tablet baclofen 10 mg tablet 5 mg PO DAILY cetirizine [24Hour Allergy] 10 mg tablet 10 mg PO DAILY PRN (Reason: allergy symptoms) Print Language: Serbian Instructions: Anxiety (ED) Referrals: Physician,Non-Staff, MD [Physician] - 1 week
== END 2025-02-02 14:19 | disposition home or self-care (01) ==
PROVIDERS: Emergency Provider Emergency Medicine; PCP Internal Medicine
DX: F41.9 Anxiety disorder, unspecified (principal); Z87.891 Personal history of nicotine dependence
CPT/HCPCS: 71045; 93005; 99284